=== PATIENT | male | born 1945 | race Caucasian/White ===

== ENCOUNTER → 2017-05-11 16:40 | Outpatient (CLI) | payer MEDICARE, OTHER, SELFPAY ==
--- NOTE | 2017-05-11 16:47 | RAD_ITS ---
STUDY: X-RAY - LEFT KNEE REASON FOR EXAM: Male, 71 years old. Pain TECHNIQUE: 4 view(s) of the knee. COMPARISON: December 04, 2013 FINDINGS: Normal visualized distal femur. Normal visualized proximal tibia and fibula. Normal proximal tibiofibular articulation. Degenerative spurring and slight increasing narrowing at the medial femorotibial compartment. Mild spurring and slight increasing narrowing at the lateral femorotibial compartment. Mild degenerative spurring at the patellofemoral articulation. The soft tissue structures are unremarkable. RAD/Knee 4 or More Views IMPRESSION: Slight increasing degenerative changes of the knee. Electronically Signed: Don Mckeon DO at 19:19 EST Tel [phone], Service support ,
--- NOTE | 2017-05-11 16:49 | RAD_ITS ---
STUDY: X-RAY - RIGHT KNEE REASON FOR EXAM: Male, 71 years old. Pain TECHNIQUE: 4 view(s) of the knee. COMPARISON: December 04, 2013 FINDINGS: Normal visualized distal femur. Normal visualized proximal tibia and fibula. Normal proximal tibiofibular articulation. Degenerative spurring with increasing narrowing at the medial femorotibial compartment. Mild degenerative spurring at the lateral femorotibial compartment. Mild degenerative spurring with increasing narrowing at the patellofemoral articulation. The soft tissue structures are unremarkable. RAD/Knee 4 or More Views IMPRESSION: Degenerative changes of the knee. Electronically Signed: Don Mckeon DO at 18:54 EST Tel [phone], Service support ,
== END ==
PROVIDERS: Family Provider Internal Medicine; PCP Internal Medicine; Visit Provider Anesthesiology Pain Medicine
DX: M25.561 Pain in right knee (principal); M25.562 Pain in left knee
CPT/HCPCS: 73564

== ENCOUNTER → 2017-06-01 17:01 | Outpatient (CLI) | payer MEDICARE, OTHER, SELFPAY ==
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
== END ==
PROVIDERS: Family Provider Internal Medicine; PCP Internal Medicine; Visit Provider Internal Medicine
DX: M54.2 Cervicalgia (principal)
CPT/HCPCS: 72040

== ENCOUNTER → 2017-10-19 12:36 | Outpatient (CLI) | payer MEDICARE, OTHER, SELFPAY | PROVIDERS: Family Provider Internal Medicine; PCP Internal Medicine; Visit Provider Dermatology | DX: L20.84 Intrinsic (allergic) eczema (principal); L82.0 Inflamed seborrheic keratosis; L29.8 Other pruritus | CPT/HCPCS: 36415 ==

== ENCOUNTER → 2017-11-02 14:14 | Outpatient (CLI) | payer MEDICARE, OTHER, SELFPAY ==
[2017-11-02 17:55] LABS: Amphetamine Urine VISTA NEGATIVE (<1000 ng/mL); Barbiturate Urine VISTA NEGATIVE (< 200 ng/mL); Benzodiazepine Urine VISTA NEGATIVE (< 200 ng/mL); Cocaine Urine VISTA NEGATIVE (< 300 ng/mL); Ecstacy Urine VISTA NEGATIVE (< 500 ng/mL); Methadone Urine VISTA NEGATIVE (< 300 ng/mL); PCP Urine VISTA NEGATIVE (< 25 ng/mL); THC Urine VISTA NEGATIVE (< 50 ng/mL); Vista UDS pH Range 6
== END ==
PROVIDERS: Family Provider Internal Medicine; PCP Internal Medicine; Visit Provider Anesthesiology Pain Medicine
DX: F11.20 Opioid dependence, uncomplicated (principal)
CPT/HCPCS: 80307

== ENCOUNTER → 2017-12-16 16:02 | Outpatient (CLI) | payer MEDICARE, OTHER, SELFPAY ==
--- NOTE | 2017-12-16 16:21 | RAD_ITS ---
STUDY: X-RAY CHEST REASON FOR EXAM: Male, 72 years old. Rash on chest TECHNIQUE: Frontal and lateral views of the chest. COMPARISON: October 11, 2014 FINDINGS: Chronic appearing increased interstitial lung markings. There is no demonstrated pleural abnormality. Enlarged heart size. Normal mediastinum and tong. Normal visualized pulmonary arteries. There is atherosclerotic calcification of the aortic arch with tortuosity. There are diffuse degenerative changes of the visualized thoracic spine. There is degenerative osteoarthritis of the bilateral shoulders. There is no demonstrated abnormality of the visualized soft tissue structures of the upper abdomen. RAD/Chest PA and Lateral IMPRESSION: There are no acute findings. Electronically Signed: Talha Smiley MD at 17:49 EDT , Service support ,
[2017-12-16 17:36] LABS: Absolute Lymphocyte Count 3.16 X10^3/ul (0.83-4.51); Absolute Neutrophil Count 6.1 X10^3/uL (2.0-7.7); Basophil# 0.03 X10^3/uL; Basophil% 0.3 % (0-1); Eosinophil# 0.41 X10^3/uL; Eosinophils% 3.9 % (0-5); Hematocrit 40.3 % (40-54); Hemoglobin 12.9 g/dl (13.0-16.5); Lymphocyte # 3.16 X10^3/ul (4.0); Lymphocyte % 30.4 % (19-41); Mean Corpuscular Hgb 30.6 pg (27.0-32.0); Mean Corpuscular Volume 95.5 fL (80-94); Mean Platelet Vol. 11.4 fl (6.2-12.0); Monocyte# 0.72 X10^3/uL; Monocyte% 6.9 % (0-10); Neutrophil # 6.05 X10^3/uL (2.7-7.7); Neutrophil % 58.3 % (47-70); Platelet Count 214 K/mm3 (150-450); RBC Distribution Width CV 13.2 % (11.6-14.6); RBC Distribution Width SD 45.7 fl (35.1-43.9); Red Blood Count 4.22 M/mm3 (4.6-6.2); White Blood Count 10.4 K/mm3 (4.4-11.0)
[2017-12-16 17:39] LABS: POSITIVE COUNT NO; POSITIVE DIFFERENTIAL NO; POSITIVE MORPHOLOGY NO
[2017-12-16 17:54] LABS: AST(SGOT) 16 U/L (15-37); Alanine Aminotransfer ALT/SGPT 28 U/L (16-61); Albumin, Serum 3.1 g/dL (3.2-5.0); Alkaline Phosphatase 81 U/L (45-117); Anion Gap 8 (5-15); BUN 22 mg/dL (7-18); BUN/Creat Ratio 16.1 RATIO (10-20); Bilirubin, Direct 0.17 mg/dL (0.00-0.30); Calcium,Total 9.8 mg/dL (8.5-10.1); Chloride 102 mmol/L (98-107); Creatinine, Serum 1.37 mg/dL (0.70-1.30); EST Glomerular Filtration Rate 54 mL/min (>60); Est Glom Filt Rate - Afr Amer 66 mL/min (>60); Globulin 3.6 g/dL (2.2-4.2); Glucose 89 mg/dL (74-106); Potassium 3.4 mmol/L (3.5-5.1); Protein, Total 6.7 g/dL (6.4-8.2); Sodium Level 142 mmol/L (136-145)
[2017-12-22 16:09] LABS: Immunoglobulin A 151 mg/dL (61-437); Immunoglobulin G 623 mg/dL (700-1600); PROEL- A/G Ratio 1.2 (0.7-1.7); PROEL- Albumin 3.4 g/dL (2.9-4.4); PROEL- Alpha-1 Globulin 0.3 g/dL (0.0-0.4); PROEL- Beta Globulin 1.1 g/dL (0.7-1.3); PROEL- Gamma Globulin 0.5 g/dL (0.4-1.8); PROEL- Globulin, Total 2.8 g/dL (2.2-3.9); PROEL- TOTAL PROTEIN 6.2 g/dL (6.0-8.5)
[2017-12-23 08:30] LABS: Hep C Antibodies <0.1 s/co ratio (0.0-0.9)
[2017-12-23 08:31] LABS: Immunoglobulin M 20 mg/dL (15-143)
[2017-12-23 16:08] LABS: PROELU- Albumin, Urine 32.8 % (.); PROELU- Alpha-1-Globulin,Ur 5.3 % (.); PROELU- Alpha-2-Globulin,Ur 19.1 % (.); PROELU- Gamma Globulin, Ur 15.8 % (.); Total Protein, Ur 5.5 mg/dL (Not Estab.)
== END ==
PROVIDERS: Family Provider Internal Medicine; PCP Internal Medicine; Referring Provider Dermatology; Visit Provider Dermatology
DX: L29.8 Other pruritus (principal); L53.8 Other specified erythematous conditions; L82.0 Inflamed seborrheic keratosis; L30.9 Dermatitis, unspecified
CPT/HCPCS: 36415; 71046; 80048; 80076; 82784; 84165; 84166; 85025; 86334; 86803

== ENCOUNTER → 2018-01-05 13:40 | Outpatient (CLI) | payer MEDICARE, OTHER, SELFPAY | PROVIDERS: Family Provider Internal Medicine; PCP Internal Medicine; Referring Provider Dermatology; Visit Provider Dermatology | DX: L30.9 Dermatitis, unspecified (principal) | CPT/HCPCS: 87070; 87077; 87186; 87205 ==

== ENCOUNTER → 2018-05-19 14:55 | Outpatient (CLI) | payer MEDICARE, OTHER, SELFPAY ==
--- NOTE | 2018-05-19 15:03 | RAD_ITS ---
STUDY: X-RAY - RIGHT KNEE REASON FOR EXAM: Male, 72 years old. Chronic pain. Decreased range of motion. TECHNIQUE: 4 view(s) of the knee. COMPARISON: 05/11/2017. FINDINGS: Normal visualized distal femur. Normal visualized proximal tibia and fibula. Normal proximal tibiofibular articulation. There is no demonstrated fracture. There is moderate to severe degenerative arthrosis of the medial femorotibial compartment with moderate joint space narrowing. There is mild degenerative arthrosis of the lateral femorotibial compartment. There is mild degenerative arthrosis of the patellofemoral articulation. There is no demonstrated joint effusion. The soft tissue structures are unremarkable. RAD/Knee 4 or More Views IMPRESSION: Mild worsening of medial compartment degenerative disease now considered moderate to severe. No other changes or acute abnormalities. Electronically Signed: Brandon Anderson MD at 0:03 EDT , Service support ,
--- NOTE | 2018-05-19 15:04 | RAD_ITS ---
STUDY: X-RAY - LEFT KNEE REASON FOR EXAM: Male, 72 years old. Chronic pain. Decreased range of motion. TECHNIQUE: 4 view(s) of the knee. COMPARISON: 05/21/2017. FINDINGS: Normal visualized distal femur. Normal visualized proximal tibia and fibula. Normal proximal tibiofibular articulation. There is no demonstrated fracture. There is moderate degenerative arthrosis of the medial femorotibial compartment with moderate joint space narrowing. There is mild degenerative arthrosis of the lateral femorotibial compartment. There is mild degenerative arthrosis of the patellofemoral articulation. There is no demonstrated joint effusion. The soft tissue structures are unremarkable. RAD/Knee 4 or More Views IMPRESSION: No change. [id number] degenerative changes, stable since previous exam. Electronically Signed: Brandon Anderson MD at 0:01 EDT , Service support ,
== END ==
PROVIDERS: Family Provider Internal Medicine; PCP Internal Medicine; Visit Provider Internal Medicine
DX: M25.561 Pain in right knee (principal); M25.562 Pain in left knee
CPT/HCPCS: 73564

== ENCOUNTER → 2018-07-03 | Outpatient (CLI) | payer MEDICARE, OTHER, SELFPAY ==
--- NOTE | 2018-07-03 17:04 | STRESSREP ---
Stress Test Report Date: 07-03-18 Procedure: Pharmacologic stress nuclear imaging study Indications: Chest pain; abnormal ECG Consent: Per the patient Procedure: The patient underwent pharmacologic (Regadenoson) evaluation with a peak heart rate of 107 beats per minute (71 %predicted maximal heart rate) and a peak blood pressure of 132/70 mmHg. The baseline ECG demonstrated sinus versus ectopic atrial rhythm; nonspecific ST/T wave abnormality; PVCs. The peak pharmacologic ECG demonstrated no obvious ECG changes. There were occasional PVCs pretest and during recovery. There was no complaint of chest discomfort during pharmacologic infusion or recovery. The examination was discontinued secondary to completion of protocol. Impression: 1. Pharmacologic (Regadenoson) evaluation 2. Peak pharmacologic ECG with no obvious ECG changes. 3. There were occasional PVCs pretest and during recovery. 4. Nuclear images pending Myocardial perfusion imaging study: Technique: The patient was injected with 14.8 millicuries of technetium 99m Cardiolite and subsequently rest SPECT Cardiolite nuclear imaging was obtained in the horizontal long, vertical long, and short axis views. The patient underwent pharmacologic (Regadenoson) evaluation with a peak heart rate of 107 beats per minute (71 % percent predicted maximal heart rate) and a peak blood pressure of 132/70 mmHg. The patient was injected with 44.9 millicuries of technetium 99m Cardiolite and subsequently stress SPECT Cardiolite nuclear imaging was obtained in the horizontal long, vertical long, and short axis views. A gated Cardiolite study at peak stress was obtained. Interpretation: Rest and stress SPECT Cardiolite nuclear imaging status post realignment, normalization, and attenuation correction demonstrate relative uniform tracer uptake and myocardial perfusion appearing within normal limits. There is end systolic thickening and brightening. The gated Cardiolite study demonstrates myocardial thickening and inward wall motion. The reported LVEF is 50 %. Impression: 1. Rest and stress SPECT Cardiolite nuclear imaging demonstrate relative uniform tracer uptake and myocardial perfusion appearing within normal limits. 2. The gated Cardiolite study reports an LVEF of 50 %. This note was generated with [employer]antage[employer] software. It may contain incorrect words, spelling, and punctuation that were not noted in checking the note before signing.
== END | disposition home or self-care (01) ==
LOC: CVS 06:55
PROVIDERS: Family Provider Internal Medicine; PCP Internal Medicine; Referring Provider Internal Medicine; Visit Provider Internal Medicine
DX: R07.9 Chest pain, unspecified (principal)
CPT/HCPCS: 78452; 93017; A9500; A4216; J2785

== ENCOUNTER → 2018-07-10 | Outpatient (CLI) | payer MEDICARE, OTHER, SELFPAY ==
--- NOTE | 2018-07-10 12:52 | VDLE_ITS ---
Reason For Study: venous insufficiency RIGHT LEFT CFV is compressible, spontaneous, phasic, CFV is compressible, spontaneous, phasic, competent and demonstrates normal competent, and demonstrates normal augmentation. augmentation. FV is compressible, spontaneous, phasic, FV is compressible, spontaneous, phasic, competent and demonstrates normal competent and demonstrates normal augmentation. augmentation. POP V is compressible, spontaneous, phasic, POP V is compressible, spontaneous, phasic, competent and demonstrates normal competent and demonstrates normal augmentation. augmentation. T/P Trunk is compressible. T/P Trunk is compressible. PTV is compressible. PTV is compressible. RT PerV is compressible. LT PerV is compressible. Peroneal V was not well visualized. Peroneal V was not visualized well. SFJ is competent. SFJ is competent. GSV is competent above knee. GSV is competent above knee. GSV demonstrates reflux > .5 seconds below GSV demonstrates reflux > .5 seconds below knee. knee. SSV is competent. SSV was not seen. Procedure Exam performed in department. The study was technically difficult. The exam was diagnostic. A preliminary report was called and/or faxed to Dr. Moore. Image # 18 is RT GSV below knee. Interpretation Summary 1. bilateral no DVT or SVT. 2. Bilateral calf GSV with reflux. Ordering Physician: Jack oMore Referring Physician: Angelia Conway Performed By: Sherri Harden, BURT, RVT
== END | disposition home or self-care (01) ==
LOC: CVS 12:51
PROVIDERS: Family Provider Internal Medicine; PCP Internal Medicine; Referring Provider Surgery Vascular Surgery; Visit Provider Surgery Vascular Surgery
DX: I83.893 Varicose veins of bilateral lower extremities with other complications (principal); E11.52 Type 2 diabetes mellitus with diabetic peripheral angiopathy with gangrene; I96 Gangrene, not elsewhere classified; I87.2 Venous insufficiency (chronic) (peripheral); E78.00 Pure hypercholesterolemia, unspecified; I10 Essential (primary) hypertension; M79.669 Pain in unspecified lower leg; M79.89 Other specified soft tissue disorders; Z87.891 Personal history of nicotine dependence
CPT/HCPCS: 93970

== ENCOUNTER → 2018-07-20 | Outpatient (CLI) | payer MEDICARE, OTHER, SELFPAY | END | disposition home or self-care (01) | LOC: CVS 14:04 | PROVIDERS: Family Provider Internal Medicine; PCP Internal Medicine; Referring Provider Internal Medicine; Visit Provider Internal Medicine | DX: R07.9 Chest pain, unspecified (principal) | CPT/HCPCS: 93306; Q9957; A4216; C8929 ==

== ENCOUNTER → 2018-09-21 | Outpatient (CLI) | payer MEDICARE, OTHER, SELFPAY ==
[2018-09-13 13:41] VITALS: BMI 35.2
== END | disposition home or self-care (01) ==
LOC: LABSPEC 17:19
PROVIDERS: Family Provider Internal Medicine; PCP Internal Medicine
DX: R30.0 Dysuria (principal)
CPT/HCPCS: 87086

== ENCOUNTER 2019-03-19 15:24 | Emergency (ER) | payer MEDICARE, OTHER, SELFPAY ==
[2018-09-13 13:41] VITALS: BMI 35.2
[2019-03-19] VITALS (7 sets, daily range): BP systolic 124–134; BP diastolic 65–80; PULSE 65–76; RESP 10–17; TEMP 36.6; O2SAT 94–98; BMI 36.6
--- NOTE | 2019-03-19 15:39 | EKG12_ITS ---
Test Reason : SOB Blood Pressure : / mmHG Vent. Rate : 067 BPM Atrial Rate : 067 BPM P-R Int : 196 ms QRS Dur : 096 ms QT Int : 428 ms P-R-T Axes : 091 -16 050 degrees QTc Int : 452 ms Sinus rhythm with Premature supraventricular complexes Otherwise normal ECG Confirmed by JIAN MCLAIN, MATTY ([id number]), makeup editor HERRERA HULL ([id number]) on 03/23/2019 9:51:03 AM Referred By: Confirmed By:KEELEY VILLAR MD
--- NOTE | 2019-03-19 15:40 | ED.DCSUM_ITS ---
History of Present Illness Chief Complaint: Shortness of Breath Informant: Patient, Significant Other Onset: Today Narrative: Patient presents the emergency department with intermittent dyspnea as well as cough. 2 weeks ago the patient had a right knee replacement with Dr. Washington. 1 week later he reports 4 days of high fever myalgias headache nasal congestion/rhinorrhea and cough. He states the fevers and myalgias have improved. He had called his primary care physician's office and they placed him on Augmentin which he has been taking. He still feels pressure in his head and shortness of breath at times with cough. She uses a couple pillows at night to help prop him up because of the cough. He notes his legs are not any more swollen than normal. He was seen by orthopedics today who is happy with the progress of his knee but were concerned about his breathing. Past Medical History - Allergies and Home Meds Allergies/Adverse Reactions: Allergies Sulfa (Sulfonamide Antibiotics) Allergy (Verified 03/19/19 15:26) Shortness of breath Gadolinium-MRI Contrast Medium [MRI] Adverse Reaction (Verified 03/19/19 15:26) Vomiting Primary Care Physician: Angelia Conway DO [Primary Care Provider] - Surgical History: - - 4 back surgeries. Smoking Status: Former smoker - Family History Maternal Family History: Family History (Last Reviewed 09/13/18 @ 14:25 by Vasile Hernández MD) Sister Cancer Mother CVA (cerebral vascular accident) Diabetes Father Cancer Brother Myocardial infarction Brother Myocardial infarction Family History: Reports: No pertinent history Paternal Family History: Family History (Last Reviewed 09/13/18 @ 14:25 by Vasile Hernández MD) Sister Cancer Mother CVA (cerebral vascular accident) Diabetes Father Cancer Brother Myocardial infarction Brother Myocardial infarction Family History: Reports: No pertinent history Review of Systems General: Reports: Fever. Denies: Chills, Sweats Eyes: Denies: Visual changes - bilaterally, Diplopia ENT: Reports: Rhinorrhea. Denies: Sore throat Cardiovascular: Denies: Chest pain, Palpitations Respiratory: Reports: Dyspnea, Cough, Dyspnea on exertion. Denies: Orthopnea Gastrointestinal: Denies: Abdominal pain, Nausea, Vomiting, Diarrhea, Melena, Hematochezia Genitourinary: Denies: Dysuria, Hematuria, Frequency Musculoskeletal: Reports: Myalgias. Denies: Back pain, Extremity Pain Skin: Denies: Rash, Abrasions, Wounds Neurological: Reports: Headache. 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 ENT: Moist mucous membranes, No rhinorrhea Neck: Supple, Nontender Cardiovascular: Regular rate, Regular rhythm, No murmurs Respiratory: No distress, CTA bilaterally, Chest nontender, Decreased Air Movement Abdomen: Soft, Nontender, Nondistended, Normal bowel sounds Back: Nontender, Normal Inspection Extremities: Nontender, Edema - Bilateral lower extremity pitting edema. Healing surgical incision of the right knee. Skin: Normal color, No rash Neurological: Alert, Oriented x3, Cranial nerves II-XII grossly intact, Normal Strength, Normal Sensation Psychological: Normal affect, Normal Mood Diagnostic/Tx/Re-eval - Rhythm Strip Rhythm Strip: Sinus Rhythm Rate: 67 - with PAC - Medical Decision Making Patient received a breathing treatment and he states that his breathing is significantly better. His chest x-ray is negative. Creatinine 1.7. Troponin negative. His EKG is sinus at a rate of 67. As his symptoms are after influe nza infection, he is not hypoxic tachycardic or tachypneic and he is not having any pleuritic pain I doubt that this is pulmonary embolism and I do not think it is worth the risk to his kidneys to give him a contrast bolus. Therefore I would have to say this most likely not a pulmonary embolism. He did get better with the breathing treatment and he has a inhaler at home which I would encourage him to use. Follow-up with primary care return if worsening or concerns. ED Disposition - Plan for ED Patient: Disposition: Home or Assisted Living Diagnosis: Bronchitis Instructions: BRONCHITIS, No Antibiotic (Adult) Referrals: Angelia Conway, DO [Primary Care Provider] - 3-5 Days if not improving
[2019-03-19] MEDS: Ipratropium/Albuterol Sulfate 3 ML AMPUL.NEB INHALATION (16:00)
[2019-03-19 16:12] LABS: Absolute Lymphocyte Count 3.14 X10^3/uL (0.83-4.51); Absolute Neutrophil Count 9.2 X10^3/uL (2.0-7.7); Basophil# 0.09 X10^3/uL; Basophil% 0.6 % (0-1); Eosinophil# 0.76 X10^3/uL; Eosinophils% 5.4 % (0-5); Hematocrit 37.3 % (40-54); Hemoglobin 12.5 g/dL (13.0-16.5); Lymphocyte # 3.14 X10^3/ul (4.0); Lymphocyte % 22.2 % (19-41); Mean Corp Hgb Conc 33.5 g/dL (32-36); Mean Corpuscular Hgb 30.6 pg (27.0-32.0); Mean Corpuscular Volume 91.2 fL (80-94); Mean Platelet Vol. 10.3 fl (6.2-12.0); Monocyte# 0.74 X10^3/uL; Monocyte% 5.2 % (0-10); NRBC Flagged by Analyzer 0 % (0-5); Neutrophil # 9.16 X10^3/uL (2.7-7.7); Platelet Count 379 K/mm3 (150-450); RBC Distribution Width SD 43.2 fl (35.1-43.9); Red Blood Count 4.09 M/mm3 (4.6-6.2); White Blood Count 14.1 K/mm3 (4.4-11.0)
--- NOTE | 2019-03-19 16:16 | RAD_ITS ---
STUDY: X-RAY CHEST REASON FOR EXAM: Male, 73 years old. SOB, COUGH AND WEAKNESS FEELING LOUSY FOR A COUPLE OF WEEKS NOW PER PATIENT. TECHNIQUE: PA and lateral views of the chest. COMPARISON: None. FINDINGS: The lungs are clear and expanded. There is no demonstrated pleural abnormality. There is mild cardiac enlargement. Normal mediastinum and tong. Normal visualized pulmonary arteries. Normal visualized aortic arch and descending thoracic aorta. Normal visualized thoracic spine. Normal visualized ribs, clavicles, and shoulders. There is no demonstrated abnormality of the visualized soft tissue structures of the upper abdomen. RAD/Chest PA and Lateral IMPRESSION: Normal x-ray examination of the chest. Electronically Signed: Juan Santacruz DO at 16:39 EST Tel , Service support ,
[2019-03-19 16:23] LABS: Anion Gap 7 (5-15); BUN 37 mg/dL (7-18); BUN/Creat Ratio 21.6 RATIO (10-20); Calcium,Total 9.4 mg/dL (8.5-10.1); Chloride 88 mmol/L (98-107); Creatinine, Serum 1.71 mg/dL (0.70-1.30); EST Glomerular Filtration Rate 42 mL/min (>60); Est Glom Filt Rate - Afr Amer 51 mL/min (>60); Estimated Creatinine Clearance 42.86 ml/min; Glucose 321 mg/dL (74-106); Potassium 3.5 mmol/L (3.5-5.1); Sodium Level 127 mmol/L (136-145)
== END 2019-03-19 18:25 | disposition home or self-care (01) ==
PROVIDERS: Emergency Provider Emergency Medicine; Family Provider Internal Medicine; PCP Internal Medicine
DX: J40 Bronchitis, not specified as acute or chronic (principal); I49.1 Atrial premature depolarization; E66.9 Obesity, unspecified; Z96.651 Presence of right artificial knee joint; Z87.891 Personal history of nicotine dependence
CPT/HCPCS: 71046; 80048; 84484; 85025; 93005; 94640; 99284; A4216

== ENCOUNTER → 2019-05-18 14:03 | Outpatient (CLI) | payer MEDICARE, OTHER, SELFPAY ==
[2019-03-19 15:26] VITALS: BMI 36.6
== END ==
PROVIDERS: PCP Internal Medicine; Referring Provider Internal Medicine; Visit Provider Internal Medicine
DX: I48.91 Unspecified atrial fibrillation (principal); R94.31 Abnormal electrocardiogram [ECG] [EKG]
CPT/HCPCS: 93225; 93226

== ENCOUNTER → 2019-07-11 15:00 | Outpatient (CLI) | payer MEDICARE, OTHER, SELFPAY ==
[2019-03-19 15:26] VITALS: BMI 36.6
--- NOTE | 2019-07-11 15:02 | ECHOCS_ITS ---
Reason For Study: AFIB Procedure This was a 2D Doppler, Color Flow transthoracic echocardiogram. The study was technically difficult. Due to body habitus. Contrast injection was performed. Exam performed in department. Left Ventricle Normal LV size. The estimated ejection fraction is 60 %. No evidence for diastolic dysfunction. No regional wall motion abnormalities noted. Right Ventricle Normal RV size. Normal systolic function. Atria Normal left atrium. Normal right atrium. No doppler evidence for ASD. Mitral Valve There is no mitral valve stenosis. No mitral valve insufficiency. Tricuspid Valve There is no tricuspid stenosis. Unable to estimate RV systolic pressure due to insufficient tricuspid regurgitant envelope. Aortic Valve Trisinus/trileaflet aortic valve. There is no aortic stenosis. No aortic valve insufficiency. Pulmonic Valve There is no pulmonic valvular stenosis. No pulmonic valve insufficiency. Great Vessels Normal aortic root. Pericardium/Pleural No pericardial effusion. Medication 22 gauge I.V. with prn adaptor inserted into right arm. Diluted definity 4.0ml given slow IV push to enhance endocardial definition. MMode/2D Measurements & Calculations LVIDd: 5.2 cm IVSd: 1.1 cm Ao root diam: 3.3 cm LVIDs: 3.0 cm LVPWd: 1.1 cm RVDd: 2.6 cm FS: 42.5 % LAV(MOD-bp): 59.3 ml LA A4 area: 19.7 cm2 LA dimension(2D): 4.6 cm LAV(MOD-bp) Indexed: 24.7 ml/m2 LAV(MOD-sp2): 64.8 ml LAV(MOD-sp4): 55.2 ml RA A4 area: 18.4 cm2 Time Measurements MV dec time: 0.26 sec Doppler Measurements & Calculations MV E max davidson: 85.8 cm/sec Lat Peak E' Davidson: 11.0 cm/sec Med Peak E' Davidson: 6.5 cm/sec MV A max davidson: 104.1 cm/sec E/E' lat: 7.8 E/E' med: 13.1 MV E/A: 0.82 Ao V2 max: 156.9 cm/sec LV V1 max: 112.8 cm/sec PA V2 max: 109.3 cm/sec Ao max P.8 mmHg LV V1 max P.1 mmHg Ao V2 mean: 101.1 cm/sec LV V1 mean P.0 mmHg Ao mean P.7 mmHg LV V1 mean: 84.1 cm/sec Ao V2 VTI: 30.5 cm LV V1 VTI: 22.0 cm Interpretation Summary The estimated ejection fraction is 60 %. No evidence for diastolic dysfunction. The study was technically difficult. Contrast injection was performed. Ordering Physician: Angelia Conway Referring Physician: Angelia Conway Performed By: Sherri Harden, BURT, RVT
== END ==
PROVIDERS: PCP Internal Medicine; Referring Provider Internal Medicine; Visit Provider Internal Medicine
DX: I48.91 Unspecified atrial fibrillation (principal); I07.1 Rheumatic tricuspid insufficiency
CPT/HCPCS: 93306; Q9957; A4216; C8929

== ENCOUNTER → 2019-09-10 16:04 | Outpatient (CLI) | payer MEDICARE, OTHER, SELFPAY ==
[2019-03-19 15:26] VITALS: BMI 36.6
--- NOTE | 2019-09-10 16:08 | RAD_ITS ---
HISTORY: back pain ADDITIONAL HISTORY: None provided. EXAMINATION/TECHNIQUE: XR Spine Lumbar 2 or 3 Views Number of images including paperwork: 3 COMPARISON: 10/23/2014 FINDINGS: VERTEBRAE: No acute fracture. VERTEBRAL ALIGNMENT: No traumatic subluxation. Straightening of the normal lumbar lordosis. DISKS AND JOINTS: Laminectomies and posterior spinal fusion L2-L4. Posterior fusion hardware also noted at L4-5. Severe discogenic degenerative changes at L1-2, progressed compared to the previous examination. Mild to moderate degenerative changes elsewhere in the visible spine. SOFT TISSUES: Vascular calcifications. RAD/Lumbar Spine 2 or 3 Views IMPRESSION: 1. No acute osseous abnormality. 2. Degenerative and postoperative changes of the lumbar spine. at 0024 Reported and signed by: Yojana Gaviria MD Electronically Signed: Yojana Gaviria MD at 0:24 EDT Tel , Service support ,
== END ==
PROVIDERS: PCP Internal Medicine; Referring Provider Anesthesiology Pain Medicine; Visit Provider Anesthesiology Pain Medicine
DX: M54.9 Dorsalgia, unspecified (principal)
CPT/HCPCS: 72100

== ENCOUNTER → 2019-12-20 15:52 | Outpatient (CLI) | payer MEDICARE, OTHER, SELFPAY ==
[2019-03-19 15:26] VITALS: BMI 36.6
== END ==
PROVIDERS: PCP Internal Medicine; Referring Provider Nurse Practitioner Adult Health; Visit Provider Nurse Practitioner Adult Health
CPT/HCPCS: 36415; 84153

== ENCOUNTER → 2019-12-27 16:13 | Outpatient (CLI) | payer MEDICARE, OTHER, SELFPAY ==
[2019-03-19 15:26] VITALS: BMI 36.6
--- NOTE | 2019-12-27 16:16 | MRI_ITS ---
STUDY: MRI LUMBAR SPINE WITHOUT CONTRAST REASON FOR EXAM: Male, 74 years old. lower BACK PAIN, PIERCING SHARP THROBBING R SIDED PAIN SINCE LAST FUSION IN 2014, MULTIPLE BACK SURGERIES TECHNIQUE: Standardized fat and water weighted pulse sequences were obtained in the sagittal and axial planes. COMPARISON: 12/09/2016 FINDINGS: T12-L1: Normal endplates. Normal disc height, hydration and morphology. Normal bilateral facet joints. Normal central canal and bilateral lateral recesses. Normal bilateral intervertebral neural foramina. Normal lumbar lordosis. There is no substantial scoliosis. Normal conus medullaris that terminates at T12-L1 L1-2: Narrowed disc space with degenerative endplate changes and desiccation of the disc with minor bulging annulus and small left foraminal disc protrusion.. Facet arthropathy and thickening of ligamenta flava greater on the left. Mild narrowing of the central canal. Mild bilateral recess stenosis greater on the left. Moderate right neuroforaminal stenosis and severe narrowing on the left. L2-3: Postop change status post bilateral laminectomy and posterior fusion.. Normal bilateral facet joints. Normal central canal and bilateral lateral recesses. Normal bilateral intervertebral neural foramina. L3-4: Postop change status post bilateral laminectomy and posterior fusion.. Bilateral facet arthropathy.. Normal central canal. Mild bilateral recess stenosis.. Normal bilateral intervertebral neural foramina. L4-5: Status post bilateral laminectomy and posterior fusion.. Normal bilateral facet joints. Normal central canal and bilateral lateral recesses. Normal bilateral intervertebral neural foramina. L5-S1 status post posterior fusion.: Normal endplates. Normal disc height, hydration and morphology. Normal bilateral facet joints. Normal central canal and bilateral lateral recesses. Normal bilateral intervertebral neural foramina. Normal visualized sacral ala. Normal visualized paraspinous soft tissue structures. There is slightly worsening of the degenerative changes at L1-2 since previous study MRI/Spine Lumbar (Routine) IMPRESSION: No evidence for acute fracture or other significant bony pathology.. Status post multilevel posterior fusion spanning L2-3 through L5-S1 Spinal stenosis at L1-2 greater on the right secondary to disc disease and bony hypertrophy. Electronically Signed: Lino Shin MD at 16:57 EDT , Service support ,
== END ==
PROVIDERS: PCP Internal Medicine; Referring Provider Anesthesiology Pain Medicine; Visit Provider Anesthesiology Pain Medicine
DX: M54.9 Dorsalgia, unspecified (principal); M62.81 Muscle weakness (generalized)
CPT/HCPCS: 72148

== ENCOUNTER → 2020-02-27 16:53 | Outpatient (CLI) | payer MEDICARE, OTHER, SELFPAY ==
[2020-01-23 15:03] VITALS: BMI 36.3
== END ==
PROVIDERS: PCP Internal Medicine; Referring Provider Internal Medicine; Visit Provider Internal Medicine
DX: R07.9 Chest pain, unspecified (principal)
CPT/HCPCS: 36415; 84484

== ENCOUNTER → 2020-04-09 07:12 | Outpatient (CLI) | payer MEDICARE, OTHER, SELFPAY ==
[2020-01-23 15:03] VITALS: BMI 36.3
--- NOTE | 2020-04-09 16:54 | STRESSREP ---
Stress Test Report Pharmacologic myocardial perfusion stress test. 72-year-old man with a history of chest pain. Stress protocol: Resting KG demonstrates sinus bradycardia with a rate of 56 bpm normal intervals are noted resting blood pressure is 126/68 mmHg. 0.4 mg of regadenoson was infused per usual protocol followed by rapid venous saline flush injection continuous EKG monitoring was performed. The maximum heart rate attained was 98 bpm which was 66% of max impacted heart rate the maximum workload was 1 metabolic equivalent. At rest there were no ST or T wave changes noted to suggest abnormal flow reserve at peak infusion nonspecific ST-T wave changes were noted with no meet the criteria for ischemia. No clinical angina was noted. Myocardial perfusion protocol. 14.7 mCi of technetium 99m sestamibi was injected at rest. 0.4 mg of regadenoson was infused per usual protocol. Peak infusion 44.5 mCi of technetium 99m sestamibi was injected stress images were obtained stress and rest images were reconstructed and compared in the short axis vertical and horizontal long axis. Gated images were also obtained Perfusion SPECT analysis: Review of the images demonstrate normal uptake of tracer noted in all areas of the myocardium. The resting images similar demonstrate normal uptake of tracer noted in all areas of the myocardium. No evidence of reversibility is noted suggest ischemia no previous infarct is noted. Gated SPECT analysis: The gated ejection fraction is noted to be 60+ percent. Conclusion: Normal pharmacologic myocardial perfusion stress test. Preserved ejection fraction.
== END ==
PROVIDERS: PCP Internal Medicine; Referring Provider Internal Medicine; Visit Provider Internal Medicine
DX: R07.89 Other chest pain (principal)
CPT/HCPCS: 78452; 93017; A9500; A4216; J2785

== ENCOUNTER → 2020-04-11 15:59 | Outpatient (CLI) | payer MEDICARE, OTHER, SELFPAY ==
[2020-04-11 14:13] VITALS: BMI 39.5
--- NOTE | 2020-04-11 16:15 | RAD_ITS ---
STUDY: X-RAY CHEST REASON FOR EXAM: Male, 74 years old. CAD, patient is to have a heart cath in near future TECHNIQUE: PA and lateral views of the chest. COMPARISON: 03/19/2019 FINDINGS: The lungs are clear and expanded. There is no demonstrated pleural abnormality. Normal size heart. Normal mediastinum and tong. Normal visualized pulmonary arteries. Normal visualized aortic arch and descending thoracic aorta. Normal visualized thoracic spine. Normal visualized ribs, clavicles, and shoulders. There is no demonstrated abnormality of the visualized soft tissue structures of the upper abdomen. RAD/Chest PA and Lateral IMPRESSION: Normal x-ray examination of the chest. Electronically Signed: Manjit Roach MD at 8:56 EST Tel , Service support ,
[2020-04-11 17:25] LABS: Absolute Lymphocyte Count 3.75 X10^3/uL (0.83-4.51); Absolute Neutrophil Count 5.9 X10^3/uL (2.0-7.7); Basophil# 0.06 X10^3/uL; Basophil% 0.5 % (0-1); Eosinophils% 2.7 % (0-5); Hematocrit 39.6 % (40-54); Hemoglobin 13.1 g/dL (13.0-16.5); Lymphocyte # 3.75 X10^3/ul (4.0); Lymphocyte % 34.3 % (19-41); Mean Corp Hgb Conc 33.1 g/dL (32-36); Mean Corpuscular Hgb 30.8 pg (27.0-32.0); Mean Platelet Vol. 12.8 fl (6.2-12.0); Monocyte# 0.83 X10^3/uL; Monocyte% 7.6 % (0-10); NRBC Flagged by Analyzer 0 % (0-5); Neutrophil # 5.93 X10^3/uL (2.7-7.7); Neutrophil % 54.4 % (47-70); Platelet Count 192 K/mm3 (150-450); RBC Distribution Width CV 13.1 % (11.6-14.6); RBC Distribution Width SD 44.4 fl (35.1-43.9); Red Blood Count 4.26 M/mm3 (4.6-6.2); White Blood Count 10.9 K/mm3 (4.4-11.0)
[2020-04-11 17:56] LABS: Anion Gap 5 (5-15); BUN 38 mg/dL (7-18); BUN/Creat Ratio 22.5 RATIO (10-20); Calcium,Total 9.6 mg/dL (8.5-10.1); Chloride 99 mmol/L (98-107); Creatinine, Serum 1.69 mg/dL (0.70-1.30); EST Glomerular Filtration Rate 42 mL/min (>60); Est Glom Filt Rate - Afr Amer 51 mL/min (>60); Glucose 265 mg/dL (74-106); Potassium 4.1 mmol/L (3.5-5.1); Sodium Level 136 mmol/L (136-145)
== END ==
PROVIDERS: PCP Internal Medicine; Referring Provider Internal Medicine Cardiovascular Disease; Visit Provider Internal Medicine Cardiovascular Disease
DX: I48.0 Paroxysmal atrial fibrillation (principal); I25.119 Atherosclerotic heart disease of native coronary artery with unspecified angina pectoris
CPT/HCPCS: 36415; 71046; 80048; 85025

== ENCOUNTER 2020-04-16 07:04 | Day surgery (SDC) | payer MEDICARE, OTHER, SELFPAY ==
[2020-04-11 14:13] VITALS: BMI 39.5
[2020-04-15 08:53] VITALS: BMI 39.5
--- NOTE | 2020-04-16 08:32 | CL.D_ITS ---
Patient Name: MACHELLE SHARP Study Date: 04/16/2020 Performing: Wai Mckeon MD Ht: 72.83 inches 185 cm : 1945 Wt: 299.83 lbs 136 kg Age: 74 Gender: male BSA: 2.55 PROCEDURE(S) PERFORMED [id number] CLINICAL PROFILE AND INDICATIONS Heart Failure: None CONCLUSIONS Normal coronary arteries RECOMMENDATIONS Medical therapy DESCRIPTION OF PROCEDURE The patient arrived to the procedure lab. The risks and benefits of the procedure as well as a full d escription of our services here and current unavailability of surgical backup were fully explained to the patient and/or their significant other prior to the catheterization. The Timeout was completed, verifying the correct patient and procedure. The patient's procedural site was prepped and draped in the usual fashion. Local anesthetic was given subcutaneously to right radial region with Lidocaine 2% . Using a modified Seldinger technique, arterial access was obtained via the right radial artery, a 6 Fr sheath was inserted. Right Coronary Artery selective angiography was then performed in [facility] using a 5 Fr. 4.0 Wales catheter.The arterial sheath was pulled and a TR Band was applied for he mostasis CORONARY ANGIOGRAPHY DOMINANCE: Left Dominant LEFT HEART ASSESSMENT Left Ventricular Ejection Fraction: by Echo 65 % Normal LV wall motion LEFT MAIN: Angiographically normal LEFT ANTERIOR DESCENDING ARTERY: Mild luminal irregularities CIRCUMFLEX ARTERY: Mild luminal irregularities RIGHT CORONARY ARTERY: Mild luminal irregularities COMPLICATIONS No Complications PROCEDURE MEDICATIONS Versed 1 mg IV Fentanyl 50 mcg IV Oxygen: 2 L/min via nasal cannula Heparin diluted in 23cc Heparinized saline. Patient given 10cc IA of this solution. 04/16/2020 08:10: 48 Verapamil 2.5mg, Ntg 100mcgs, 2000 units of Heparin diluted in 23cc Heparinized saline. Patient give n 10cc IA of this solution. 04/16/2020 08:10:48 SUMMARY OF HEMODYNAMIC DATA Time AIR REST ECG 07:36:32 AO 95/59 (72) SA 08:12:37 Signed By Wai Mckeon MD On 04/16/2020 08:31:34 Wai Mckeon MD
--- NOTE | 2020-04-16 10:11 | ECHOCS_ITS ---
Reason For Study: Chest Pain Procedure This was a 2D Doppler, Color Flow transthoracic echocardiogram. The study was technically difficult. Contrast injection was performed. Exam performed portable in patient room. Left Ventricle Normal LV size. Left ventricular systolic function is normal. The estimated ejection fraction is 60 %. Stage 1 diastolic dysfunction. No regional wall motion abnormalities noted. Right Ventricle Normal RV size. Normal systolic function. Atria Normal left atrium. Normal right atrium. Mitral Valve Normal mitral valve. Tricuspid Valve Normal tricuspid valve. Mild (1+) tricuspid valve insufficiency. Pulmonary artery systolic pressure is 24 mmHg. Aortic Valve Trisinus/trileaflet aortic valve. Great Vessels Normal aortic root. The pulmonary artery is normal size. Pericardium/Pleural No pericardial effusion. Medication Diluted definity 3ml given slow IV push to enhance endocardial definition. MMode/2D Measurements & Calculations LVIDd: 6.5 cm IVSd: 1.0 cm Ao root diam: 3.3 cm LVIDs: 4.3 cm LVPWd: 1.1 cm RVDd: 4.3 cm FS: 34.3 % LAV(MOD-bp): 48.4 ml LVAd ap4: 32.3 cm2 SV(MOD-sp4): 53.4 ml LAV(MOD-bp) Indexed: 18.9 ml/m2 EDV(MOD-sp4): 92.3 ml LAV(MOD-sp2): 58.7 ml EDV(sp4-el): 94.6 ml LAV(MOD-sp4): 35.7 ml LVAs ap4: 18.9 cm2 ESV(MOD-sp4): 38.9 ml ESV(sp4-el): 38.9 ml EF(MOD-sp4): 57.9 % EF(sp4-el): 58.9 % SV(sp4-el): 55.7 ml LA A4 area: 17.8 cm2 LA dimension(2D): 4.1 cm RA A4 area: 21.1 cm2 Doppler Measurements & Calculations MV E max davidson: 97.2 cm/sec Lat Peak E' Davidson: 10.8 cm/sec Med Peak E' Davidson: 7.6 cm/sec MV A max davidson: 102.6 cm/sec E/E' lat: 9.0 E/E' med: 12.9 MV E/A: 0.95 Ao V2 max: 164.0 cm/sec LV V1 max: 115.0 cm/sec PA V2 max: 114.0 cm/sec Ao max P.9 mmHg LV V1 max P.3 mmHg Ao V2 mean: 112.6 cm/sec Ao mean P.7 mmHg Ao V2 VTI: 34.7 cm TR max davidson: 231.5 cm/sec TR max P.4 mmHg Interpretation Summary Normal LV size. Left ventricular systolic function is normal. The estimated ejection fraction is 60 %. Stage 1 diastolic dysfunction. Pulmonary artery systolic pressure is 24 mmHg. Contrast injection was performed. Ordering Physician: Wai Mckeon Referring Physician: Angelia Conway Performed By: Kimmie Lopez, BURT, RVT
== END 2020-04-16 11:08 | disposition home or self-care (01) ==
PROVIDERS: PCP Internal Medicine; Referring Provider Internal Medicine Cardiovascular Disease; Visit Provider Internal Medicine Cardiovascular Disease
DX: R07.89 Other chest pain (principal); I10 Essential (primary) hypertension; E78.5 Hyperlipidemia, unspecified; E66.9 Obesity, unspecified; Z68.39 Body mass index [BMI] 39.0-39.9, adult; I48.0 Paroxysmal atrial fibrillation; K21.9 Gastro-esophageal reflux disease without esophagitis; E11.9 Type 2 diabetes mellitus without complications; M19.90 Unspecified osteoarthritis, unspecified site; Z87.440 Personal history of urinary (tract) infections; Z86.19 Personal history of other infectious and parasitic diseases; Z79.4 Long term (current) use of insulin; Z79.82 Long term (current) use of aspirin; Z79.01 Long term (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 of anticoagulants; Z79.899 Other long term (current) drug therapy; Z87.891 Personal history of nicotine dependence
CPT/HCPCS: 93306; 93454; 99152; 99153; J7040; Q9957; Q9967; A4216; C1769; C1894; C8929

== ENCOUNTER → 2020-06-23 11:47 | Outpatient (CLI) | payer MEDICARE, OTHER, SELFPAY ==
[2020-06-18 13:15] VITALS: BMI 36.6
[2020-06-23 15:37] LABS: Absolute Lymphocyte Count 3.31 X10^3/uL (0.83-4.51); Absolute Neutrophil Count 7.3 X10^3/uL (2.0-7.7); Basophil# 0.06 X10^3/uL; Basophil% 0.5 % (0-1); Eosinophil# 0.25 X10^3/uL; Eosinophils% 2.1 % (0-5); Hematocrit 41.8 % (40-54); Hemoglobin 13.5 g/dL (13.0-16.5); Lymphocyte # 3.31 X10^3/ul (0.83-4.51); Lymphocyte % 28.3 % (19-41); Mean Corp Hgb Conc 32.3 g/dL (32-36); Mean Corpuscular Hgb 30.6 pg (27.0-32.0); Mean Corpuscular Volume 94.8 fL (80-94); Mean Platelet Vol. 12.7 fl (6.2-12.0); Monocyte# 0.76 X10^3/uL; Monocyte% 6.5 % (0-10); NRBC Flagged by Analyzer 0 % (0-5); Neutrophil # 7.25 X10^3/uL (2.7-7.7); Neutrophil % 62.1 % (47-70); Platelet Count 238 K/mm3 (150-450); RBC Distribution Width CV 12.2 % (11.6-14.6); RBC Distribution Width SD 42.9 fl (35.1-43.9); Red Blood Count 4.41 M/mm3 (4.6-6.2); White Blood Count 11.7 K/mm3 (4.4-11.0)
[2020-06-23 15:57] LABS: ALB/GLOB Ratio 0.9 RATIO (0.9-2.4); AST(SGOT) 12 U/L (15-37); Alanine Aminotransfer ALT/SGPT 24 U/L (16-61); Albumin, Serum 3.1 g/dL (3.2-5.0); Alkaline Phosphatase 90 U/L (45-117); Anion Gap 9 (5-15); BUN 39 mg/dL (7-18); BUN/Creat Ratio 25.2 RATIO (10-20); Calcium,Total 9.7 mg/dL (8.5-10.1); Chloride 97 mmol/L (98-107); Creatinine, Serum 1.55 mg/dL (0.70-1.30); EST Glomerular Filtration Rate 47 mL/min (>60); Est Glom Filt Rate - Afr Amer 57 mL/min (>60); Globulin 3.4 g/dL (2.2-4.2); Glucose 205 mg/dL (74-106); Potassium 3.6 mmol/L (3.5-5.1); Protein, Total 6.5 g/dL (6.4-8.2); Sodium Level 136 mmol/L (136-145)
== END ==
PROVIDERS: PCP Internal Medicine; Referring Provider Podiatrist; Visit Provider Podiatrist
DX: E11.621 Type 2 diabetes mellitus with foot ulcer (principal); L97.512 Non-pressure chronic ulcer of other part of right foot with fat layer exposed; E11.42 Type 2 diabetes mellitus with diabetic polyneuropathy
CPT/HCPCS: 36415; 80053; 85025

== ENCOUNTER 2020-07-02 10:45 | Outpatient (RCR) | payer MEDICARE, OTHER, SELFPAY ==
[2020-04-15 08:53] VITALS: BMI 39.5
--- NOTE | 2020-06-18 | IMM_PTH ---
PATIENT: MACHELLE SHARP LOC: U#:[id number] AGE/SX: 74/M ROOM: RE07/02/[address]: Dr. Tonya Mckeon DPM : 1945 BED: DIS: 07/02/2020 SPEC #: [id number] RECD: 06/20/20 11:17 STATUS: MARGOT REQ #: [id number] MARQUES: 06/18/20 00:[address]: Tonya Mckeon DEPT: IMMUNOHISTOCHEMISTRY RECD BY: Laura Vora ENTERED: 06/20/20 11:18 SP TYPE: IMMUNO OTHR DR: Dr. Angelia Conway DO Tissues: Skin of foot, NOS Procedures: SMA (add) CD31 (add) CD34 (add) CK8 (add) DESMIN (add) KI-67 (add) P53 (add) Vimentin (add) FACTOR VIII (add) Pankeratin (initial) MELAN-A (add) S-100 (add) PHYSICIAN & [address] [address] SPECIMEN INFORMATION: Tissue Source: Plantar right foot Clinical Info: Pedunculated hypergranular lesion Specimen Number: [id number] CPT code: 06260, 99010 x11 METHODOLOGY: Deparaffinized sections of prefer/formalin-fixed tissue or PAP/DQ stained slides are incubated with monoclonal/polyclonal antibodies/oligonucleotide probes. Localization is made via biotin free immunoperoxidase method. Appropriate controls are performed and reacted as expected. Results on target cell population are indicated in the following table: RESULTS: ANTIBODY / CLONE RESULT AE1-3 (AE1/AE3/PCK26) negative CK8 (07ocliM89) negative Vimentin (V9) positive Actin (1A4) negative Desmin (CE-R-11) negative Melan A (A103) negative S-100 (4C4.9) negative P53 (DO-7) positive, weak Ki-67 (30-9) positive, moderate to high CD31 (NAFISA/70A) positive CD34 (QBEnd-10) positive Factor VIII (R Ag) positive These tests were developed and their performance characteristics determined by [facility]. They may not have been cleared or approved by the U.S. Food and Drug Administration. The FDA has determined that such clearance or approval is not necessary. The above immunohistochemical/dualISH markers are ordered and reviewed by the Pathologist. INTERPRETATION: Pedunculated hypergranular lesion, plantar right foot, biopsy: Kaposi's sarcoma. See comment. PARMINDER:sangita 06/27/2020 Comment: [facility] supports the above diagnosis. The specimen is sent to [facility] for expert opinion, reviewed by Dr. Fabiana Rod and the above diagnosis is rendered. The complete report is viewable in the patient's EMR. Case has been reviewed in consultation with Dr. Drake who concurs with the above diagnosis. IDC:[email or web address]
[2020-06-18 13:15] VITALS: BP 164/71; PULSE 98; RESP 16; TEMP 36.2; BMI 36.6
--- NOTE | 2020-06-18 13:30 | SOF_PTH ---
PATIENT: MACHELLE SHARP LOC: U#:[id number] AGE/SX: 74/M ROOM: RE07/02/[address]: Dr. Tonya Mckeon DPM : 1945 BED: DIS: 07/02/2020 SPEC #: [id number] RECD: 06/18/20 16:35 STATUS: MARGOT AIDA #: [id number] MARQUES: 06/18/20 13:[address]: Tonya Mckeon DEPT: SURGICAL PATHOLOGY RECD BY: Jaelyn Mancilla ENTERED: 06/19/20 07:28 SP TYPE: SOFT TISS OTHR DR: Dr. Angelia Conway, DO Tissues: Soft tissues, NOS Procedures: Surgery Specimen Level IV HEADER OPERATION: Biopsy soft tissue, right foot PRE-OP DIAGNOSIS: Pedunculated hypergranular lesion TISSUE SUBMITTED: Plantar right foot MICROSCOPIC DIAGNOSIS Pedunculated hypergranular lesion, plantar right foot, biopsy: Kaposi's sarcoma. See comment. SJ:sangita 06/27/2020 COMMENT The specimen is sent to [facility] for expert opinion, reviewed by Dr. Fabiana Rod and the above diagnosis is rendered. The complete report is viewable in the patient's EMR. Immunohistochemistry ([id number]) and additional immunohistochemical stains performed at [facility] supports the above diagnosis. This case is discussed with Dr. Mckeon on 06/23/20. Case has been reviewed in consultation with Dr. Drake who concurs with the above diagnosis. IDC:AM MICROSCOPIC DESCRIPTION Slides are reviewed. GROSS DESCRIPTION Received in fixative is one container labeled with the patient's name and designated right foot ulcer biopsy. The specimen consists of a round piece salazar-light brown skin measuring 1 x 1.1 cm and up to 0.4 cm in thickness. The specimen is inked, serially sectioned and submitted entirely in one cassette. / PARMINDER:sangita 06/19/20 TC:0 CPT: 09140
--- NOTE | 2020-06-18 14:26 | HP.PCM_ITS ---
(1) Right foot ulcer Status: Chronic Qualifiers: Non-pressure ulcer stage: with fat layer exposed Qualified Code(s): L97.512 - Non-pressure chronic ulcer of other part of right foot with fat layer exposed Code(s): L97.519 - Non-pressure chronic ulcer of other part of right foot with unspecified severity (2) Type 2 diabetes mellitus with diabetic polyneuropathy Status: Chronic Code(s): E11.42 - Type 2 diabetes mellitus with diabetic polyneuropathy (3) Other specified peripheral vascular diseases Status: Suspected Code(s): I73.89 - Other specified peripheral vascular diseases (4) Venous insufficiency Status: Suspected Code(s): I87.2 - Venous insufficiency (chronic) (peripheral) (5) Hypergranulation Status: Acute Code(s): L92.9 - Granulomatous disorder of the skin and subcutaneous tissue, unspecified (6) Malnutrition Status: Chronic Code(s): E46 - Unspecified protein-calorie malnutrition (7) Delayed wound healing Status: Chronic Code(s): T14.8XXD - Other injury of unspecified body region, subsequent encounter History of Present Illness Date of Service: 06/18/20 Chief Complaint: Right foot ulcer History of Wound: This 74-year-old male with significant past medical history of diabetes, atrial fibrillation, hyperlipidemia, hypertension, blindness, insomnia, history of acute renal failure, retinitis pigmentosa, and history of venous insufficiency with multiple procedural interventions was seen for right foot ulcer. He relates the onset was 2 months ago. He was referred from the foot and ankle center after applying Betadine gauze. He relates recently the wound has protruded further from his foot and is tender while walking and during light touch. He tries to put weight on his heel in a surgical shoe but this is very difficult. He does have some cramping intermittently when walking but not on a routine distance. He does have altered sensation consistent with neuropathy. He relates his last A1c level was in the 5 range. He had x-rays performed at the foot and ankle center last week. Past Medical History Past Medical History: Chronic Problems (Last Updated 04/16/20 @ 15:04 by Carmen Carlson) Right foot ulcer (Chronic) Type 2 diabetes mellitus with diabetic polyneuropathy (Chronic) Malnutrition (Chronic) Delayed wound healing (Chronic) Paroxysmal atrial fibrillation (Chronic) Essential hypertension (Chronic) Hyperlipidemia (Chronic) Surgical History: - Allergies/Adverse Reactions: Allergies Sulfa (Sulfonamide Antibiotics) Allergy (Verified 06/18/20 13:40) Shortness of breath Gadolinium-MRI Contrast Medium [MRI] Adverse Reaction (Verified 06/18/20 13:40) Vomiting Home Medications: Ambulatory Orders Medication Instructions Recorded Cyanocobalamin [Vitamin B12] 100 mcg IM Q30D PRN 08/21/13 Enalapril Maleate [Vasotec] 10 mg PO DAILY 08/21/13 Gabapentin [Neurontin] 800 mg PO TIDCM 08/21/13 Insulin Regular, Human [Humulin R] 70 unit SC TIDCM 08/21/13 Omeprazole [Prilosec] 40 mg PO DAILY 08/21/13 Atorvastatin Calcium [Lipitor] 80 mg PO QHS 07/25/14 Aspirin [Aspirin, Baby] 81 mg PO DAILY@0800 10/09/14 carisoprodol 350 mg tablet 350 mg PO TID PRN tab 09/13/18 etodolac 400 mg tablet,extended 400 mg PO BID tab 09/13/18 release 24 hr insulin degludec 200 unit/mL (3 20 unit SC DAILY 09/13/18 mL) subcutaneous pen triamterene 37.5 1 tab PO DAILY 09/13/18 mg-hydrochlorothiazide 25 mg tablet finasteride 5 mg tablet 1 tab PO DAILY 01/23/20 hydrocodone 10 mg-acetaminophen 1 tab PO 4X/DAY 01/23/20 325 mg tablet levothyroxine 25 mcg tablet 25 mcg PO DAILY 01/23/20 minocycline 100 mg tablet 100 mg PO BID PRN tab 01/23/20 cholecalciferol (vitamin D3) 125 125 mcg PO DAILY 04/11/20 mcg (5,000 unit) capsule furosemide 40 mg tablet 40 - 80 mg PO DAILY tab 04/11/20 Multivit-Min/FA/Lycopen/Lutein 1 each PO DAILY 06/18/20 [Centrum Silver Men Tablet] - Family History Maternal Family History: Family History (Last Reviewed 04/11/20 @ 15:[address] Wai Mckeon MD) Sister Cancer Mother CVA (cerebral vascular accident) Diabetes Father Cancer Brother Myocardial infarction Brother Myocardial infarction Brother Lung cancer No pertinent history Paternal Family History: Family History (Last Reviewed 04/11/20 @ 15:[address] Wai Mckeon MD) Sister Cancer Mother CVA (cerebral vascular accident) Diabetes Father Cancer Brother Myocardial infarction Brother Myocardial infarction Brother Lung cancer No pertinent history Lives: Spouse/ Significant Other Smoking Status: Former smoker Tobacco Use: Non-smoker Review of Systems Constitutional: Denies: Chills, Fever Cardiovascular: Denies: Claudication Respiratory: Denies: Cough Gastrointestinal: Denies: Nausea, Vomiting Musculoskeletal: Reports: Foot Pain. Denies: Leg Pain Skin: Reports: Rash, Wounds Neurological: Reports: Incoordination, Numbness Hematologic/ Lymphatic: Reports: Easy Bleeding - Physical Exam Vital Signs Temp Pulse Resp BP 97.2 F L 98 16 164/71 H 06/18/20 13:15 06/18/20 13:15 06/18/20 13:15 06/18/20 13:15 General: Alert, Oriented x3, Cooperative, No apparent distress HEENT: Atraumatic Extremities: Diminished Peripheral Pulses - Audible Doppler weak biphasic PT and dorsalis pedis noted Skin: Ulcer/ Wound - No purulence, erythema, streaking, odor, infection. Adjacent skin atrophic. Hyper granulation tissue appears pedunculated to plantar right forefoot and during biopsy there is only hematogenous drainage without deep probing or necrosis. No adjacent bogginess or fluctuance., - - Adjacent compartments remain soft to palpate. Wound Measurements and Assessment WC - Nurse 1 - General Ulcer Measurement Start: 06/18/20 13:02 Freq: Status: Active Protocol: Activity Type Activity Date Activity User E-Sign Co-Sign Detail Recorded Client Recorded Date Recorded By Document 06/18/20 13:15 [facility] [id number] 06/18/20 13:34 [facility] 06/18/20 13:15 Wound Center Nurse 1 [Ulcer Assessment] #1- R PLANTAR FOOT -Combined with other wound No -Current Size (cm) - Length 1 -Current Size (cm) - Width 1.1 -Current Size (cm) - Depth 0.1 -Total Square Cm 1.1 -Date of Last Picture (Recall this 06/18/20 field) -Photo Taken Yes -Epithelialization None Present -Tunneling No -Undermining/Tunneling No -Circular Undermining No -Exudate Amt Small -Exudate Type Serosanguineous -Wound Margin Distinct, Outline Attached -Granulation Amt Large (67-100%) -Granulation Quality Hyper- granulation,Red -Slough/Fibrin Yes -Necrosis Amt Small (1-33%) -Necrotic Tissue Type Adherent Slough -Texture (Hannah-wound Skin Appearance) Assessed, Scarring -Moisture (Hannah-wound Skin Appearance Assessed ) -Color (Hannah-wound Skin Appearance) Assessed -Temperature (Hannah-wound Skin No Abnormality Appearance) (Pt Warm) -Tenderness on Palpation (Hannah-wound No Skin Appearance) -Ulcer Cleansing Rinsed/ Irrigated with Saline -Foul Odor after Cleansing No -Anesthetic Used 5% Lidocaine Gel [Edema Assessment] -Lower Limb Edema Present Yes -Right Calf (cm) 52 -Right Ankle (cm) 33.1 -Left Calf (cm) 52.1 -Left Ankle (cm) 32.2 WC - Nurse 2 - General Ulcer CM Notes Start: 06/18/20 13:02 Freq: Status: Active Protocol: Activity Type Activity Date Activity User E-Sign Co-Sign Detail Recorded Client Recorded Date Recorded By Document 06/18/20 14:05 [facility] [id number] 06/18/20 14:23 [facility] 06/18/20 14:05 Wound Center Nurse 2 [Procedure/Treatment] #1- R PLANTAR FOOT -Time 14:20 -Correct Patient Yes -Correct Side, Site, Position Yes -Correct Procedure Yes -Procedure Performed Yes -Type of Procedure Biopsy -Clinical Debridement Subcutaneous -Tissue Removed Subcutaneous -Post Debridement (cm) - Length 1 -Post Debridement (cm) - Width 1.2 -Post Debridement (cm) - Depth 0.2 -Total Square (Post) (cm) 1.2 -Area of Debridement (cm) - Length 1 -Area of Debridement (cm) - Width 1.2 -Total Square (Area) (cm) 1.2 -Tunneling No -Undermining/Tunneling No -Circular Undermining No -Wound/Ulcer Outcome Not Healed -Ulcer Cleansing Rinsed/ Irrigated with Saline -Foul Odor after Cleansing No -Bioengineered Tissue No -Bleeding Controlled with Pressure,Silver Nitrate, SURGIFOAM -Offloading Yes -Type of Offloading Surgical Shoe -Treatment Response Procedure Tolerated Well -Debridement - Subq, 1st 20sq cm No -I&D / Paring / Biopsy Punch bx skin ( includes simple close, if done ), single lesion,Incision bx skin (eg: wedge)(incl simple close, if done), single lesion [See Physician Procedure note for Specifics] Pain Scale: 0-10 Numeric [Pain] -Is Patient Pain Free? Yes Musculoskeletal: No Tenderness to Palpation of Joints or Extremities, Muscle Wasting Neurological: - - Lack of epicritic sensation to light touch is consistent with neuropathy Psych/Mental Status: Normal Affect, Appropriate Debridement Note Post-Debridement Measurements/Treatment WC - Nurse 2 - General Ulcer CM Notes Start: 06/18/20 13:02 Freq: Status: Active Protocol: Activity Type Activity Date Activity User E-Sign Co-Sign Detail Recorded Client Recorded Date Recorded By Document 06/18/20 14:05 [facility] [id number] 06/18/20 14:23 [facility] 06/18/20 14:05 Wound Center Nurse 2 #1- R PLANTAR FOOT -Time 14:20 -Correct Patient Yes -Correct Side, Site, Position Yes -Correct Procedure Yes -Procedure Performed Yes -Type of Procedure Biopsy -Clinical Debridement Subcutaneous -Tissue Removed Subcutaneous -Post Debridement (cm) - Length 1 -Post Debridement (cm) - Width 1.2 -Post Debridement (cm) - Depth 0.2 -Total Square (Post) (cm) 1.2 -Area of Debridement (cm) - Length 1 -Area of Debridement (cm) - Width 1.2 -Total Square (Area) (cm) 1.2 -Tunneling No -Undermining/Tunneling No -Circular Undermining No -Wound/Ulcer Outcome Not Healed -Ulcer Cleansing Rinsed/ Irrigated with Saline -Foul Odor after Cleansing No -Bioengineered Tissue No -Bleeding Controlled with Pressure,Silver Nitrate, SURGIFOAM -Offloading Yes -Type of Offloading Surgical Shoe -Treatment Response Procedure Tolerated Well -Debridement - Subq, 1st 20sq cm No -I&D / Paring / Biopsy Punch bx skin ( includes simple close, if done ), single lesion,Incision bx skin (eg: wedge)(incl simple close, if done), single lesion Pain Scale: 0-10 Numeric Is Patient Pain Free? Yes Wound debrided: plantar forefoot Laterality: Right Wound Grade/Stage: grade 1 Type of Debridement: Excisional debridement Anesthesia Used: 5% Lidocaine Gel Depth: in the subcutaneous layer Percentage of wound debrided: 100 Instrument Used: #15 blade, Forceps, - - 3 mm punch biopsy Tissue Removed: fibrous, devitalized subcutaneous, biofilm, slough, hypergranulation tissue Severity: Fat Layer Exposed Amount of bleeding with debridement: Mild Bleeding Controlled with: Pressure Patient tolerated procedure well biopsy sent to for histopathological testing (shave/punch) Assessment/Plan Active Problems (Last Updated 04/16/20 @ 15:04 by Carmen Carlson) Right foot ulcer (Chronic) Type 2 diabetes mellitus with diabetic polyneuropathy (Chronic) Hypergranulation (Acute) Malnutrition (Chronic) Delayed wound healing (Chronic) Assessment: Plantar right foot ulcer fat layer exposed with hyper granulation tissue, no infection. Diabetes with neuropathy. Delayed healing. Peripheral vascular disease work-up in process. Venous insufficiency. Lower extremity edema. Malnutrition suspected Plan: I reviewed and discussed his case today. Debridement was performed today as noted in the clinical panel to all of the ulcer sites. After verbal consent, an additional soft tissue biopsy was performed including a 3 mm punch biopsy. This was sent to pathology for histopathological evaluation. Pressure and Gelfoam application was applied to maintain hemostasis. He tolerated this well. The following work up and care recommendations were made: Dressing: Betadine wet-to-dry. Wash: Soap and water. Imaging: Right foot x-rays were reviewed from the foot and ankle center from 06-10-20 without any acute fractures or dislocations, foreign body soft tissue emphysema or osseous destruction adjacent to the ulcer site. Offload: Surgical shoe with heel weightbearing. Offloading pocket has been fabricated to take additional pressure off of this ulcer site. Diagnostic data: I recommend updating labs including CBC and CMP. He relates he is about to get all this updated with his primary care physician, Dr. Conway. He was reassured he does not need to get 2 sets of the same labs. I provided him with an order and he was advised to call at the same time. Vascular: I recommend noninvasive vascular studies and an order was provided including segmental leg and thigh pressures, RAF, and systolic toe pressures. Edema: Elevation, routine muscle contraction, and compression garments were recommended. Tubigrip's were dispensed today. I recommend updating his venous insufficiency studies with Doppler including reflux evaluation. An order was provided and we will help him get scheduled. Infection: He was reassured no local signs of infection are noted today. To monitor. Pain: Controlled due to her neuropathy. Host factors: Continue glycemic control as recommend did. Nutrition: To maintain proper diabetic diet and to take nutritional supplementation to optimize healing. I answered all the patient's questions. To return to the wound healing center in 1 week or call sooner if the patient has any questions or concerns. Note: 2theloo speech recognition key account executive software was used to create portions of this document. Sound-alike and misspelled words, as well as other key account executive errors may be contained in the documentation. The problems addressed require a moderate decision making level which includes one or more chronic illnesses (w/ exacerbation, progression, or side effects), two or more stable chronic illnesses, one undiagnosed new problem w/ uncertain prognosis, one acute illness with systemic symptoms, or one acute complicated injury. The medical decision making level is moderate. There is noted moderate risk of morbidity after considering this treatment plan and diagnostic data. Considerations were given to prescription management, decisions regarding surgical options, or social determinants of health. -----. macra 2020: His medications and allergies were reviewed and reconciled. He is a current tobacco none user. It is noted he was a prior former smoker. No falls were reported this past year. He has a body mass index that is elevated at 36.6. His blood pressure is 164/71 which is elevated. Nutrition and activity recommendations were reviewed to improve blood pressure and optimize healing potential. To follow-up with primary care physician.
[2020-06-25 13:31] VITALS: BP 131/59; PULSE 81; RESP 18; TEMP 36.3; BMI 36.6
--- NOTE | 2020-06-25 14:38 | PN.PCM_ITS ---
(1) Right foot ulcer Status: Chronic Qualifiers: Non-pressure ulcer stage: with fat layer exposed Qualified Code(s): L97.512 - Non-pressure chronic ulcer of other part of right foot with fat layer exposed Code(s): L97.519 - Non-pressure chronic ulcer of other part of right foot with unspecified severity (2) Type 2 diabetes mellitus with diabetic polyneuropathy Status: Chronic Code(s): E11.42 - Type 2 diabetes mellitus with diabetic polyneuropathy (3) Other specified peripheral vascular diseases Status: Suspected Code(s): I73.89 - Other specified peripheral vascular diseases (4) Venous insufficiency Status: Suspected Code(s): I87.2 - Venous insufficiency (chronic) (peripheral) (5) Hypergranulation Status: Acute Code(s): L92.9 - Granulomatous disorder of the skin and subcutaneous tissue, unspecified (6) Malnutrition Status: Chronic Code(s): E46 - Unspecified protein-calorie malnutrition (7) Delayed wound healing Status: Chronic Code(s): T14.8XXD - Other injury of unspecified body region, subsequent encounter (8) Skin cancer Status: Suspected Code(s): C44.90 - Unspecified malignant neoplasm of skin, unspecified Type of Wound Date of Service: 06/25/20 Chief Complaint: Right foot ulcer History of Wound: This 74-year-old male with significant past medical history of diabetes, atrial fibrillation, hyperlipidemia, hypertension, blindness, insomnia, history of acute renal failure, retinitis pigmentosa, and history of venous insufficiency with multiple procedural interventions was seen for right foot ulcer. He denies fever, chill, nausea, vomiting, recent weight loss, swollen lymph nodes or other recent illness. He denies redness or odor to the foot. He relates his foot feels much better since his lesion was removed last week and it appears smaller. He has been offloading with a surgical shoe. He is with his today. Progress of Wound: Stable - Physical Exam Vital Signs Temp Pulse Resp BP 97.4 F L 81 18 131/59 H 06/25/20 13:31 06/25/20 13:31 06/25/20 13:31 06/25/20 13:31 General: Alert, Oriented x3, Cooperative, No apparent distress HEENT: Atraumatic Extremities: No cyanosis, Capillary Refill Less than 3 Seconds, No Calf Tenderness - Negative Arianna and Walker sign bilateral. Compartments are soft to palpate lower extremities, Diminished Peripheral Pulses, Edema Skin: Ulcer/ Wound - Granular-based ulcer without aggressive hyper granulation reformation this past week. Adjacent skin is atrophic and hairless. There is no purulence, erythema, string, odor, infection or necrosis. There is no bogginess, fluctuance, or crepitus Wound Measurements and Assessment WC - Nurse 1 - General Ulcer Measurement Start: 06/18/20 13:02 Freq: Status: Active Protocol: Activity Type Activity Date Activity User E-Sign Co-Sign Detail Recorded Client Recorded Date Recorded By Document 06/25/20 13:31 [facility] [id number] 06/25/20 13:41 [facility] 06/25/20 13:31 Wound Center Nurse 1 [Ulcer Assessment] #1- R PLANTAR FOOT -Combined with other wound No -Current Size (cm) - Length 0.3 -Current Size (cm) - Width 0.1 -Current Size (cm) - Depth 0.2 -Total Square Cm 0.03 -Photo Taken No -Epithelialization Medium 34-66% -Tunneling No -Undermining/Tunneling Yes -Undermining/Tunneling Starts (O' 12 clock) -Undermining/Tunneling Ends (O'clock) 12 -Maximum Distance (cm) 0.2 -Circular Undermining Yes -Exudate Amt Small -Exudate Type Serosanguineous -Wound Margin Distinct, Outline Attached -Granulation Amt Large (67-100%) -Granulation Quality Red -Slough/Fibrin Yes -Necrosis Amt Small (1-33%) -Necrotic Tissue Type Adherent Slough -Texture (Hannah-wound Skin Appearance) Assessed,Callus ,Scarring -Moisture (Hannah-wound Skin Appearance Assessed,Dry/ ) Scaly -Color (Hannah-wound Skin Appearance) Assessed -Temperature (Hannah-wound Skin No Abnormality Appearance) (Pt Warm) -Tenderness on Palpation (Hannah-wound No Skin Appearance) -Ulcer Cleansing Rinsed/ Irrigated with Saline -Foul Odor after Cleansing No -Anesthetic Used 5% Lidocaine Gel WC - Nurse 2 - General Ulcer CM Notes Start: 06/18/20 13:02 Freq: Status: Active Protocol: Activity Type Activity Date Activity User E-Sign Co-Sign Detail Recorded Client Recorded Date Recorded By Document 06/25/20 14:08 [id number] 06/25/20 14:09 06/25/20 14:08 Wound Center Nurse 2 [Procedure/Treatment] -Correct Patient No -Correct Side, Site, Position No -Correct Procedure No -Procedure Performed No -Wound/Ulcer Outcome Not Healed -Debridement - Subq, 1st 20sq cm No [See Physician Procedure note for Specifics] Pain Scale: 0-10 Numeric [Pain] -Is Patient Pain Free? Yes - Nurse 3 - General Ulcer D/C NN Start: 06/18/20 13:02 Freq: Status: Active Protocol: Activity Type Activity Date Activity User E-Sign Co-Sign Detail Recorded Client Recorded Date Recorded By Document 06/25/20 14:22 [facility] [id number] 06/25/20 14:22 [facility] 06/25/20 14:22 Wound Care Nurse 3 [Wound Dressing] #1- R PLANTAR FOOT -Ulcer Cleansing Rinsed/ Irrigated with Saline -Foul Odor after Cleansing No -Primary Dressing Applied Other -Other Dressing betadine -Primary Dressing Covered/Secured Dry Gauze, with Secured with Tape [Post Procedure Tolerated] -Treatment Response Procedure Tolerated Well Pain Scale: 0-10 Numeric [Pain] -Is Patient Pain Free? Yes - Visit Discharge [Visit Discharge Information] -Discharge Condition Stable -Ambulatory Status Ambulatory,Cane -Transportation Private Auto -Accompanied by Musculoskeletal: Muscle Wasting, - - Dorsal contracture of lesser toes with prominent metatarsal heads Lymphatic: - - Popliteal lymph nodes remain nonpalpable Neurological: - - Lack of full sensation to light touch is consistent with some potential neuropathy Psych/Mental Status: Normal Affect, Appropriate Debridement Note Post-Debridement Measurements/Treatment - Nurse 2 - General Ulcer CM Notes Start: 06/18/20 13:02 Freq: Status: Active Protocol: Activity Type Activity Date Activity User E-Sign Co-Sign Detail Recorded Client Recorded Date Recorded By Document 06/18/20 14:05 [id number] 06/18/20 14:23 Document 06/25/20 14:08 [id number] 06/25/20 14:09 06/18/20 06/25/20 14:05 14:08 Wound Center Nurse 2 #1- R PLANTAR FOOT -Time 14:20 -Correct Patient Yes No -Correct Side, Site, Position Yes No -Correct Procedure Yes No -Procedure Performed Yes No -Type of Procedure Biopsy -Clinical Debridement Subcutaneous -Tissue Removed Subcutaneous -Post Debridement (cm) - Length 1 -Post Debridement (cm) - Width 1.2 -Post Debridement (cm) - Depth 0.2 -Total Square (Post) (cm) 1.2 -Area of Debridement (cm) - Length 1 -Area of Debridement (cm) - Width 1.2 -Total Square (Area) (cm) 1.2 -Tunneling No -Undermining/Tunneling No -Circular Undermining No -Wound/Ulcer Outcome Not Healed Not Healed -Ulcer Cleansing Rinsed/ Irrigated with Saline -Foul Odor after Cleansing No -Bioengineered Tissue No -Bleeding Controlled with Pressure,Silver Nitrate, SURGIFOAM -Offloading Yes -Type of Offloading Surgical Shoe -Treatment Response Procedure Tolerated Well -Debridement - Subq, 1st 20sq cm No No -I&D / Paring / Biopsy Punch bx skin ( includes simple close, if done ), single lesion,Incision bx skin (eg: wedge)(incl simple close, if done), single lesion Pain Scale: 0-10 Numeric Is Patient Pain Free? Yes Yes - Nurse 3 - General Ulcer D/C NN Start: 06/18/20 13:02 Freq: Status: Active Protocol: Activity Type Activity Date Activity User E-Sign Co-Sign Detail Recorded Client Recorded Date Recorded By Document 06/18/20 14:29 [facility] [id number] 06/18/20 14:30 [facility] Document 06/25/20 14:22 [facility] [id number] 06/25/20 14:22 [facility] 06/18/20 06/25/20 14:29 14:22 Wound Care Nurse 3 #1- R PLANTAR FOOT -Ulcer Cleansing Rinsed/ Rinsed/ Irrigated with Irrigated with Saline Saline -Foul Odor after Cleansing No No -Primary Dressing Applied Other Other -Other Dressing BETADINE betadine -Primary Dressing Covered/Secured with Dry Gauze & Dry Gauze, Roll Gauze, Secured with Secured with Tape Tape -Other Covering DRSG PER D SOURAV DANGELON Treatment Response Procedure Procedure Tolerated Well Tolerated Well Pain Scale: 0-10 Numeric Is Patient Pain Free? Yes Yes - Visit Discharge Discharge Condition Stable Stable Ambulatory Status Ambulatory,Cane Ambulatory,Cane Transportation Private Auto Private Auto Accompanied by Wound debrided: plantar foot Laterality: Right Wound Grade/Stage: grade 1 / other work up for skin malignancy in process and results pending No debridement was completed today - diagnosis work up is in process Assessment/Plan Active Problems (Last Updated 04/16/20 @ 15:04 by Carmen Carlson) Right foot ulcer (Chronic) Type 2 diabetes mellitus with diabetic polyneuropathy (Chronic) Hypergranulation (Acute) Malnutrition (Chronic) Delayed wound healing (Chronic) Assessment: Plantar right foot ulcer fat layer exposed with hyper granulation tissue. Skin malignancy work-up is in process with pathology report undergoing specialized consultation and this is still pending. No infection. Diabetes with neuropathy. Delayed healing. Peripheral vascular disease work-up in process. Venous insufficiency. Lower extremity edema. Malnutrition suspected Plan: I reviewed and discussed his case today. Debridement was not performed today. His pathology results are still pending and are not viewable in the electronic health record system yet. I did review this case with pathologist earlier this week who did see some aggressive characteristics. There is concern of skin malignancy and this is sent for an additional consultation. Anticipated results will be available within a week and I will follow this closely. The following work up and care recommendations were made: Dressing: Betadine wet-to-dry. Wash: Soap and water. Imaging: Right foot x-rays were reviewed from the foot and ankle center from 06-10-20 without any acute fractures or dislocations, foreign body soft tissue emphysema or osseous destruction adjacent to the ulcer site. Offload: Surgical shoe with heel weightbearing. Offloading pocket has been fabricated to take additional pressure off of this ulcer site. Diagnostic data: I recommend updating labs including CBC and CMP. These labs were obtained on 06-23-20 with white blood cell count slightly elevated 11.7. It is also noted he does have reduced kidney function. Vascular: I recommend noninvasive vascular studies and an order was provided including segmental leg and thigh pressures, RAF, and systolic toe pressures. Edema: Elevation, routine muscle contraction, and compression garments were recommended. Tubigrip's were dispensed today. I recommend updating his venous insufficiency studies with Doppler including reflux evaluation. An order was provided and we will help him get scheduled. Infection: He was reassured no local signs of infection are noted today. To monitor. Pain: Controlled due to her neuropathy. Host factors: Continue glycemic control as recommend did. Nutrition: To maintain proper diabetic diet and to take nutritional supplementation to optimize healing. I answered all the patient's questions. To return to the wound healing center in 1 week or call sooner if the patient has any questions or concerns. I will call him sooner if the pathology report is available. Note: [employer] speech recognition television production technician software was used to create portions of this document. Sound-alike and misspelled words, as well as other television production technician errors may be contained in the documentation. The problems addressed require a moderate decision making level which includes one or more chronic illnesses (w/ exacerbation, progression, or side effects), two or more stable chronic illnesses, one undiagnosed new problem w/ uncertain prognosis, one acute illness with systemic symptoms, or one acute complicated injury. The medical decision making level is moderate. There is noted moderate risk of morbidity after considering this treatment plan and diagnostic data. Considerations were given to prescription management, decisions regarding surgical options, or social determinants of health. -----. macra 2020: His medications and allergies were reviewed and reconciled. He is a current tobacco none user. It is noted he was a prior former smoker. No falls were reported this past year. He has a body mass index that is elevated at 36.6. His blood pressure is 131/59 which is not elevated. Nutrition and activity recommendations were reviewed to improve health and healing potential. To follow-up with primary care physician.
[2020-07-02 11:07] VITALS: BP 128/81; PULSE 74; RESP 20; TEMP 37; BMI 36.6
--- NOTE | 2020-07-02 12:59 | VDLE_ITS ---
Reason For Study: Venous insufficiency RIGHT LEFT CFV is compressible, spontaneous, phasic, CFV is compressible, spontaneous, phasic, competent and demonstrates normal competent, and demonstrates normal augmentation. augmentation. FV is compressible, spontaneous, phasic, FV is compressible, spontaneous, phasic, competent and demonstrates normal competent and demonstrates normal augmentation. augmentation. POP V is compressible, spontaneous, phasic, POP V is compressible, spontaneous, phasic, competent and demonstrates normal competent and demonstrates normal augmentation. augmentation. T/P Trunk is compressible. T/P Trunk is compressible. PTV is compressible. PTV is compressible. RT PerV is compressible. LT PerV is compressible. GSV EVLA above knee. Nonvascularized structure noted in the left SFJ is competent and measures 0.60 x 0.71 popliteal fossa measuring 1.53 x 2.56 x 3.91. cm. GSV EVLA. GSV at knee measures 0.23 x 0.23 cm. SSV EVLA. GSV below knee is INCOMPETENT for greater SFJ is competent and measures 0.81 x 1.29 cm. than 0.5 seconds. ASV proximal calf is INCOMPETENT for greater ASV mid calf is INCOMPETENT for greater than than 0.5 seconds and measures 0.25 x 0.25 cm. 0.5 seconds and measures 0.27 x 0.23 cm. SSV at junction is competent and measures 0.27 x 0.273 cm. Procedure This is a venous duplex using B-mode, color flow and spectral Doppler. Exam performed in department. A preliminary report was called and/or faxed to . VL/Venous Duplex US - Wander Extrem Interpretation Summary No evidence for acute deep venous thrombosis bilateral lower extremities History of right great saphenous vein endovenous ablation above the knee Incompetent right great saphenous vein below the knee Incompetent right accessory saphenous vein mid calf Competent right small saphenous vein Left popliteal nonvascular 1.53 x 2.56 x 3.91 cm structure. Heterogenous. Possi ble Elizondo's cyst. Clinical correlation would be appropriate Report of left great saphenous vein and small saphenous vein endovenous ablatio n Competent left saphenofemoral junction Incompetent left accessory saphenous vein proximal calf Ordering Physician: Tonya Mckeon Referring Physician: Angelia Conway M.D. Performed By: Mora Armstrong RVT
--- NOTE | 2020-07-02 12:59 | ART_ITS ---
Reason For Study: PVD Procedure A bilateral lower extremity continuous wave Doppler with analog waveform analysis,segmental pressures,and ankle brachial indexes without exercise. Left Segmental Pressures Left brachial= 117mmHg. Left posterior tibial artery = 158mmHg. Left dorsalis pedis artery = 140mmHg. Left digit = 161 mmHg. The left dorsalis pedis waveforms are triphasic. The left posterior tibial artery waveforms are triphasic. Right Segmental Pressures Right brachial= 122mmHg. Right posterior tibial artery = 159mmHg. Right dorsalis pedis artery = 126mmHg. Right digit = 172 mmHg. The right dorsalis pedis waveforms are triphasic. The right posterior tibial artery waveforms are triphasic. Indices The right ankle brachial index by the dorsalis pedis is 1.03. The right ankle brachial index by the posterior tibial artery is 1.30. The right digital-brachial index is 1.41. The left ankle brachial index by the dorsalis pedis is 1.15. The left ankle brachial index by the posterior tibial artery is 1.58. The left digital-brachial index is 1.32. VL/Lower Ext Art Exam w/o Exercis Interpretation Summary Normal bilateral lower extremity ankle-brachial indices with normal bilateral p osterior tibial and dorsalis pedis triphasic Doppler waveforms Normal bilateral digital brachial indices although the absolute index may be ar tificially elevated Digital PPG's appear to be maintained Ordering Physician: Tonya Mckeon Referring Physician: Angelia Conway M.D. Performed By: Mora Armstrong RVT and Student
--- NOTE | 2020-07-02 16:01 | PCM.PROGNOTE ---
Subjective Subjective: This 74-year-old male follows up with the wound healing center today for right foot nonhealing ulcer. 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 He is scheduled for an oncology consultation this afternoon. He is also scheduled to have noninvasive vascular studies completed this afternoon. He has been changing his dressing and denies redness or odor. He denies fever, chill, nausea or vomiting. Objective Data Objective Data Vital Signs: Vital Signs Temp Pulse Resp BP 98.6 F 74 20 H 128/81 H 07/02/20 11:07 07/02/20 11:07 07/02/20 11:07 07/02/20 11:07 Oxygen Delivery Method Room Air Weight: 122.47 kg Body Mass Index (BMI) 36.6 Finger Stick Blood Glucose 204 Radiography Diagnostic Testing: Radiology Impression Extremity Arterial Study 07/02/20 12:59 Interpretation Summary Normal bilateral lower extremity ankle-brachial indices with normal bilateral posterior tibial and dorsalis pedis triphasic Doppler waveforms Normal bilateral digital brachial indices although the absolute index may be artificially elevated Digital PPG's appear to be maintained Ordering Physician: Tonya Mckeon Referring Physician: Angelia Conway M.D. Performed By: Mora Armstrong RVT and Student Venous Doppler Study 07/02/20 12:59 Interpretation Summary No evidence for acute deep venous thrombosis bilateral lower extremities History of right great saphenous vein endovenous ablation above the knee Incompetent right great saphenous vein below the knee Incompetent right accessory saphenous vein mid calf Competent right small saphenous vein Left popliteal nonvascular 1.53 x 2.56 x 3.91 cm structure. Heterogenous. Possible Elizondo's cyst. Clinical correlation would be appropriate Report of left great saphenous vein and small saphenous vein endovenous ablation Competent left saphenofemoral junction Incompetent left accessory saphenous vein proximal calf Ordering Physician: Tonya Mckeon Referring Physician: Angelia Conway M.D. Performed By: Mora Armstrong RVT Physical Exam Const alert and oriented x3 General Appearance: cooperative HEENT normocephalic Extremity normal capillary refill Extremity Narrative: no cyanosis, no calf tenderness, diminished pulses muscle wasting noted. no tenderness. non palpable lymph node. General Extremity: edema Skin Skin Narrative: no purulence, no erythema, no streaking, no odor, no infection. Adjacent skin is atrophic. no visible hypergranulation tissue noted. no fluctuance, bogginess or crepitus Neuro Neuro Narrative: lack of normal epicritic sensation via light touch consistent with neuropathy Assessment & Plan Assessment/Plan (1) Right foot ulcer: Status: Chronic Code(s): L97.519 - Non-pressure chronic ulcer of other part of right foot with unspecified severity Qualifiers: Non-pressure ulcer stage: with fat layer exposed Qualified Code(s): L97.512 - Non-pressure chronic ulcer of other part of right foot with fat layer exposed (2) Type 2 diabetes mellitus with diabetic polyneuropathy: Status: Chronic Code(s): E11.42 - Type 2 diabetes mellitus with diabetic polyneuropathy (3) Other specified peripheral vascular diseases: Status: Suspected Code(s): I73.89 - Other specified peripheral vascular diseases (4) Kaposi sarcoma: Status: Acute Code(s): C46.9 - Kaposi's sarcoma, unspecified Plan: I reviewed and discussed his case today.? Debridement was not performed today.? Wound measurement information is in nursing clinical panel. The following work up and care recommendations were made:? Dressing: Betadine wet-to-dry.? Wash: Soap and water.? Imaging: Right foot x-rays were reviewed from the foot and ankle center from 06-10-20 without any acute fractures or dislocations, foreign body soft tissue emphysema or osseous destruction adjacent to the ulcer site.? Offload: Surgical shoe with heel weightbearing.? Offloading pocket has been fabricated to take additional pressure off of this ulcer site.? Diagnostic data: I recommend updating labs including CBC and CMP.? These labs were obtained on 06-23-20 with white blood cell count slightly elevated 11.7.? It is also noted he does have reduced kidney function.? Pathology results were confirmed: kaposi sarcoma diagnosis was made. Oncology was performed and she will go for consultation with Dr. Ruiz this afternoon. He understands additional testing such as imaging studies of the foot, chest, or whole-body and additional laboratory diagnostic data will likely be ordered as well. He denies history of HIV and this was noted. He understands further recommendations after all of the diagnostic data is reviewed may include surgical intervention and potential amputation and/or chemotherapy or radiation. Consultation with oncology is greatly appreciated and I will follow up on the recommendations. Vascular: I recommend noninvasive vascular studies and an order was provided including segmental leg and thigh pressures, RAF, and systolic toe pressures.? This exam is scheduled for this afternoon. Edema: Elevation, routine muscle contraction, and compression garments were recommended.? Tubigrip's were dispensed today.? I recommend updating his venous insufficiency studies with Doppler including reflux evaluation.? Results are pending.? Infection: He was reassured no local signs of infection are noted today.? To monitor.? Pain: Controlled due to her neuropathy.? Host factors: Continue glycemic control as recommended.? Nutrition: To maintain proper diabetic diet and to take nutritional supplementation to optimize healing.? I answered all the patient's questions.? To return to the wound healing center in 1 week or call sooner if the patient has any questions or concerns.? Note: [employer] speech recognition product development ecologist software was used to create portions of this document. Sound-alike and misspelled words, as well as other product development ecologist errors may be contained in the documentation.? The problems addressed require a moderate decision making level which? includes one or more chronic illnesses (w/ exacerbation, progression, or side effects), two or more stable chronic illnesses, one undiagnosed new problem w/ uncertain prognosis, one acute illness with systemic symptoms, or one acute complicated injury.? The medical decision making level is moderate.? There is noted moderate risk of morbidity after considering this treatment plan and diagnostic data. Considerations were given to prescription management, decisions regarding surgical options, or social determinants of health.? -----.? macra 2020:? His medications and allergies were reviewed and reconciled.? He is a current tobacco none user.? It is noted he was a prior former smoker.? No falls were reported this past year.? He has a body mass index that is elevated at 36.6.? His blood pressure is 128/81 which is elevated.?To follow up with pcp. Nutrition and activity recommendations were reviewed to improve health and healing potential.?
== END 2020-07-02 15:26 | disposition home or self-care (01) ==
LOC: WC 10:45
PROVIDERS: PCP Internal Medicine; Referring Provider Podiatrist; Visit Provider Podiatrist
DX: E11.621 Type 2 diabetes mellitus with foot ulcer (principal); L97.412 Non-pressure chronic ulcer of right heel and midfoot with fat layer exposed; C46.9 Kaposi's sarcoma, unspecified; H35.52 Pigmentary retinal dystrophy; L92.9 Granulomatous disorder of the skin and subcutaneous tissue, unspecified; E11.42 Type 2 diabetes mellitus with diabetic polyneuropathy; E11.51 Type 2 diabetes mellitus with diabetic peripheral angiopathy without gangrene; I48.0 Paroxysmal atrial fibrillation; R60.0 Localized edema; I10 Essential (primary) hypertension; E78.5 Hyperlipidemia, unspecified; Z79.01 Long term (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 of anticoagulants; Z79.82 Long term (current) use of aspirin; Z79.4 Long term (current) use of insulin; Z79.899 Other long term (current) drug therapy; Z87.891 Personal history of nicotine dependence; E46 Unspecified protein-calorie malnutrition; I73.89 Other specified peripheral vascular diseases; I87.2 Venous insufficiency (chronic) (peripheral); M79.89 Other specified soft tissue disorders
CPT/HCPCS: 11104; 11106; 36415; 86703; 88305; 88341; 88342; 93923; 93970; 99213; G0463

== ENCOUNTER → 2020-07-11 07:33 | Outpatient (CLI) | payer MEDICARE, OTHER, SELFPAY ==
[2020-07-02 11:07] VITALS: BMI 36.6
--- NOTE | 2020-07-11 07:35 | CT_ITS ---
STUDY: CT RIGHT FOOT REASON FOR EXAM: Male, 74 years old. 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 RADIATION DOSAGE (If Supplied By Facility): CTDIvol = ( 15.35 ) mGy, DLP = ( 411.33 ) mGycm TECHNIQUE: Thin section transaxial imaging of the foot was obtained, with sagittal and coronal reconstructed images. Individualized dose optimization techniques were used for this CT. COMPARISON: None. FINDINGS: Calcaneal spurs. Degenerative changes of the tarsal articulations. Normal metatarsi. Normal metatarsophalangeal joint of the great toe. Normal tibial and fibular sesamoid bones. Normal interphalangeal joint of the great toe. Normal phalanges of the great toe. Normal second through fifth metatarsophalangeal joints. Normal interphalangeal joints and phalanges of the lesser toes. There is a 2.1 cm by 1.4 cm soft tissue nodule along the plantar aspect of the first metatarsophalangeal joint. There is evidence of skin thickening and subcutaneous edema along the dorsal aspect of the foot. CT/Extremity Lower WITH Contrast IMPRESSION: 2.1 cm x 1.4 cm soft tissue nodule in the plantar aspect of the first metatarsal phalangeal joint. Skin thickening and diffuse soft tissue swelling along the dorsal aspect of the foot. Electronically Signed: Marcus Spears MD at 10:11 EDT , Service support ,
--- NOTE | 2020-07-11 07:35 | CT_ITS ---
STUDY: CT CHEST, ABDOMEN T PELVIS WITH CONTRAST REASON FOR EXAM: Male, 74 years old. 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 Individualized dose optimization techniques were used for this CT. COMPARISON: No relevant priors. FINDINGS: There is a 1.3 cm hypodense nodule in the right lobe of the thyroid. Focal calcification is seen along its superior aspect. CHEST Minimal increased linear markings at the lung bases suggests mild scarring. There is no demonstrated pleural abnormality. Minimal coronary artery calcification. Normal mediastinum. Normal hilar regions. Normal unenhanced pulmonary arteries. Mild degree of calcific plaques at the level of the aortic arch. There are multi-level degenerative changes of the thoracic spine. There is no demonstrated abnormality of the visualized upper abdomen. ABDOMEN Normal liver. Normal gallbladder and extrahepatic biliary system. Normal spleen. Normal pancreas. Normal bilateral adrenal glands. Small cysts are also seen in the right kidney. 1 cm cyst in the posterior midportion of the left kidney. There is a 1.9 cm cyst in the lower pole of the left kidney. Normal visualized stomach. Normal small intestine. Normal colon. The appendix is visualized and appears normal. There is diffuse atherosclerotic calcification of the abdominal aorta, without a demonstrated aneurysm. Normal inferior vena cava. Normal retroperitoneum. There is a small umbilical hernia containing fat. There are diffuse degenerative changes of the visualized lumbar spine. Prior laminectomy and interpedicular screw and susie fixation at the L2-L3 and L3-L4 levels. PELVIS Mild degree of diffuse bladder wall thickening. Prostatic enlargement. It measures 5.3 cm x 5 cm. There is evidence of prior TURP. Normal visualized small intestine. Normal visualized colon. There is no pelvic fluid. There is no pelvic lymphadenopathy or mass lesion. There is diffuse atherosclerotic calcification of the pelvic arteries. CT/CT Chest, Abd, Pel w/Contrast IMPRESSION: Small bilateral renal cysts. Prostatic enlargement with indentation of the bladder base. Mild degree of diffuse bladder wall thickening. Electronically Signed: Marcus Spears MD at 10:04 EDT , Service support ,
== END ==
PROVIDERS: PCP Internal Medicine; Referring Provider Internal Medicine Medical Oncology; Visit Provider Internal Medicine Medical Oncology
DX: C46.9 Kaposi's sarcoma, unspecified (principal)
CPT/HCPCS: 71260; 73701; 74177; Q9967

== ENCOUNTER → 2020-07-21 | Outpatient (CLI) | payer MEDICARE, OTHER, SELFPAY ==
[2020-07-16 11:32] VITALS: BMI 40.9
--- NOTE | 2020-07-21 | LES_PTH ---
PATIENT: MACHELLE SHARP LOC: [facility] U#:[id number] AGE/SX: 74/M ROOM: RE07/21/[address]: Dr. Tonya Mckeon DPM : 1945 BED: DIS: 07/21/2020 SPEC #: [id number] RECD: 07/21/20 12:05 STATUS: MARGOT AIDA #: [id number] MARQUES: 07/21/20 00:[address]: Tonya Mckeon DEPT: SURGICAL PATHOLOGY RECD BY: Jaelyn Mancilla ENTERED: 07/21/20 12:56 SP TYPE: Lesion OTHR DR: Dr. Angelia Conway, DO Tissues: Skin of foot, NOS Procedures: Surgery Specimen Level IV HEADER OPERATION: 4 mm punch biopsy at soft tissue mass site, right foot PRE-OP DIAGNOSIS: Kaposi sarcoma C46.9 TISSUE SUBMITTED: Soft tissue histopathological evaluation of tumor, right foot MICROSCOPIC DIAGNOSIS Soft tissue mass of right foot, punch biopsy: Hyperkeratosis and mild acanthosis. No evidence of malignancy. See comment. AM:sangita 07/22/2020 COMMENT Clinical correlation is suggested. MICROSCOPIC DESCRIPTION Slides are reviewed. GROSS DESCRIPTION Received in fixative is one container labeled with the patient's name and designated right foot. The specimen consists of a punch biopsy of salazar-white skin measuring 0.4 cm in diameter and 0.5 cm in length. The entire specimen is submitted in one cassette. / SJ:sangita 07/21/20 TC:5 CPT: 99319
[2020-07-21 13:43] LABS: M R Staph aureus DNA By PCR Negative (Negative); Probe Check PASS; Specimen Processing Control PASS; Staph aureus DNA By PCR NEGATIVE (Negative)
== END | disposition home or self-care (01) ==
LOC: LABSPEC 12:09
PROVIDERS: PCP Internal Medicine; Referring Provider Podiatrist; Visit Provider Podiatrist
DX: S91.301A Unspecified open wound, right foot, initial encounter (principal); C46.9 Kaposi's sarcoma, unspecified
CPT/HCPCS: 87070; 87075; 87077; 87186; 87205; 87640; 88305

== ENCOUNTER → 2020-09-09 14:09 | Outpatient (CLI) | payer MEDICARE, OTHER, SELFPAY ==
[2020-08-14 08:39] VITALS: BMI 40.7
[2020-09-09 14:17] LABS: Bacteria 0 SEEN /hpf (None Seen); Mucous, Urine 0 SEEN /hpf (<or=2+); Red Blood Cells-Urine 0 SEEN /hpf (0-5); White Blood Cells 0 SEEN /hpf (0-5)
[2020-09-09 18:12] LABS: Absolute Lymphocyte Count 2.66 X10^3/uL (0.83-4.51); Absolute Neutrophil Count 7.3 X10^3/uL (2.0-7.7); Basophil# 0.04 X10^3/uL; Basophil% 0.4 % (0-1); Eosinophil# 0.31 X10^3/uL; Eosinophils% 2.8 % (0-5); Hematocrit 39.2 % (40-54); Hemoglobin 12.8 g/dL (13.0-16.5); Lymphocyte # 2.66 X10^3/ul (0.83-4.51); Lymphocyte % 24.1 % (19-41); Mean Corp Hgb Conc 32.7 g/dL (32-36); Mean Corpuscular Hgb 30.7 pg (27.0-32.0); Mean Platelet Vol. 12.9 fl (6.2-12.0); Monocyte# 0.66 X10^3/uL; NRBC Flagged by Analyzer 0 % (0-5); Neutrophil # 7.32 X10^3/uL (2.7-7.7); Neutrophil % 66.2 % (47-70); Platelet Count 182 K/mm3 (150-450); RBC Distribution Width CV 12.5 % (11.6-14.6); RBC Distribution Width SD 42.9 fl (35.1-43.9); Red Blood Count 4.17 M/mm3 (4.6-6.2); White Blood Count 11.1 K/mm3 (4.4-11.0)
[2020-09-09 18:15] LABS: Color, Urine Yellow (Yellow); Glucose, Dipstick Normal (Normal); Ketone-Dipstick Negative (Negative); Leukocyte Esterase-Dipstick Negative /ul (Negative); Nitrite-Dipstick Negative (Negative); Occult Blood-Urine Negative /ul (Negative); Protein-Dipstick Negative (Negative); Urine Bilirubin Dipstick Negative (Negative); Urine Clarity Clear (Clear); Urine Urobilinogen Normal (Normal); Urine pH 6.5 (5.0 - 8.0)
[2020-09-09 18:30] LABS: Squamous Epithelial Cells - UA 0-5 SEEN /hpf (0-5)
[2020-09-09 18:33] LABS: ALB/GLOB Ratio 0.9 RATIO (0.9-2.4); AST(SGOT) 19 U/L (15-37); Alanine Aminotransfer ALT/SGPT 30 U/L (16-61); Alkaline Phosphatase 92 U/L (45-117); Anion Gap 5 (5-15); BUN 28 mg/dL (7-18); BUN/Creat Ratio 21.7 RATIO (10-20); Calcium,Total 9.5 mg/dL (8.5-10.1); Chloride 103 mmol/L (98-107); Creatinine, Serum 1.29 mg/dL (0.70-1.30); EST Glomerular Filtration Rate 58 mL/min (>60); Est Glom Filt Rate - Afr Amer 70 mL/min (>60); Globulin 3.4 g/dL (2.2-4.2); Glucose 144 mg/dL (74-106); Potassium 4.1 mmol/L (3.5-5.1); Protein, Total 6.4 g/dL (6.4-8.2); Sodium Level 138 mmol/L (136-145); Thyroid Stim Hormone (TSH) 1.58 uIU/mL (0.358-3.74); Vitamin B12 336 pg/mL (211-911)
[2020-09-09 18:55] LABS: Microalbumin,Random Urine < 5.0 mg/L (NO RANGE EST.)
== END ==
PROVIDERS: PCP Internal Medicine; Referring Provider Internal Medicine; Visit Provider Internal Medicine
DX: E03.9 Hypothyroidism, unspecified (principal); D51.8 Other vitamin B12 deficiency anemias; E11.9 Type 2 diabetes mellitus without complications
CPT/HCPCS: 36415; 80053; 81001; 82043; 82570; 82607; 84443; 85025

== ENCOUNTER → 2020-09-15 17:07 | Outpatient (CLI) | payer MEDICARE, OTHER, SELFPAY ==
[2020-08-14 08:39] VITALS: BMI 40.7
--- NOTE | 2020-09-15 17:09 | MRI_ITS ---
STUDY: MRI RIGHT FOREFOOT WITHOUT CONTRAST REASON FOR EXAM: Soft tissue mass at the plantar aspect of the foot, biopsied Kaposi''s sarcoma. TECHNIQUE: Standardized fat and water weighted pulse sequences were obtained in all 3 orthogonal planes. COMPARISON: CT images 07/11/2020. FINDINGS: There is mild arthrosis of the metatarsophalangeal joint of the hallux with mild chondral thinning (T1 sagittal image 8) and a subchondral cyst in the base of the first proximal phalanx (inversion recovery sagittal images 6, 7). There is very mild bone edema in the tibial sesamoid (inversion recovery short axis series 5 image 16) suggestive of sesamoiditis. Normal fibular sesamoid. There is mild arthrosis of the interphalangeal joint of the hallux with mild chondral thinning (T1 sagittal image 8). Normal proximal and distal phalanges of the great toe. Normal medial and lateral heads of the flexor hallucis brevis tendons. Normal flexor and extensor hallucis longus tendons. Normal second through fifth metatarsophalangeal (MTP) joints. Normal interphalangeal joints of the second through fifth toes. Normal proximal, middle and distal phalanges of the second through fifth toes. Normal first through fourth intermetatarsal spaces. Normal flexor and extensor tendons of the second through fifth toes. Normal metatarsals. There is arthrosis of the talonavicular articulation with chondral thinning (T1 sagittal image 7) and navicular-cuneiform articulations with small marginal osteophytes, subchondral cystic change and chondral thinning (T1 sagittal images 14-19). There is atrophy with fat replacement of the intrinsic muscles of the midfoot and forefoot (T1 sagittal images 11-21). There is a soft tissue mass in the subcutis adipose space at the plantar aspect of the first metatarsophalangeal joint measuring approximately 0.7 x 2.1 x 2.3 cm (AP x transverse x length). The lesion is intermediate signal intensity with overlying skin thickening (T1 short axis series 3 images 16-20) and mostly hypointense on T2 sequences with a small amount of fluid at the medial aspect of the mass (T2 short axis series 4 images 16-20). There is edema in the subcutis adipose space at the dorsal aspect of the forefoot and midfoot. MRI/Lower Ext/No Jt/w/o IMPRESSION: Soft tissue mass at the plantar aspect of the first metatarsophalangeal joint. Mild tibial sesamoiditis. Mild arthrosis of the first metatarsophalangeal joint and interphalangeal joint of the first digit. Arthrosis of the talonavicular and navicular-cuneiform articulations. Atrophy of the intrinsic muscles of the forefoot/midfoot suggestive of peripheral neuropathy. Electronically Signed: Aneesh Hoover MD at 10:11 EDT Tel , Service support ,
== END ==
PROVIDERS: PCP Internal Medicine; Visit Provider Orthopaedic Surgery
DX: R22.41 Localized swelling, mass and lump, right lower limb (principal)
CPT/HCPCS: 73718

== ENCOUNTER → 2020-09-24 | Outpatient (CLI) | payer MEDICARE, OTHER, SELFPAY ==
[2020-08-14 08:39] VITALS: BMI 40.7
[2020-09-24 19:22] LABS: M R Staph aureus DNA By PCR Negative (Negative); Probe Check PASS; Specimen Processing Control PASS; Staph aureus DNA By PCR NEGATIVE (Negative)
== END | disposition home or self-care (01) ==
PROVIDERS: PCP Internal Medicine; Referring Provider Podiatrist Foot & Ankle Surgery; Visit Provider Podiatrist Foot & Ankle Surgery
DX: L02.612 Cutaneous abscess of left foot (principal); L97.529 Non-pressure chronic ulcer of other part of left foot with unspecified severity
CPT/HCPCS: 87070; 87077; 87186; 87205; 87640

== ENCOUNTER → 2020-09-25 15:48 | Outpatient (CLI) | payer MEDICARE, OTHER, SELFPAY ==
[2020-08-14 08:39] VITALS: BMI 40.7
[2020-09-25 17:37] LABS: Absolute Lymphocyte Count 4.04 X10^3/uL (0.83-4.51); Absolute Neutrophil Count 6.3 X10^3/uL (2.0-7.7); Basophil% 0.8 % (0-1); Eosinophil# 0.72 X10^3/uL; Eosinophils% 5.9 % (0-5); Hemoglobin 13.3 g/dL (13.0-16.5); Lymphocyte # 4.04 X10^3/ul (0.83-4.51); Lymphocyte % 33.1 % (19-41); Mean Corp Hgb Conc 33.3 g/dL (32-36); Mean Corpuscular Hgb 30.9 pg (27.0-32.0); Mean Corpuscular Volume 92.8 fL (80-94); Mean Platelet Vol. 12.4 fl (6.2-12.0); Monocyte# 0.96 X10^3/uL; Monocyte% 7.9 % (0-10); NRBC Flagged by Analyzer 0 % (0-5); Neutrophil # 6.31 X10^3/uL (2.7-7.7); Neutrophil % 51.8 % (47-70); Platelet Count 216 K/mm3 (150-450); RBC Distribution Width CV 12.5 % (11.6-14.6); RBC Distribution Width SD 43.1 fl (35.1-43.9); Red Blood Count 4.31 M/mm3 (4.6-6.2); White Blood Count 12.2 K/mm3 (4.4-11.0)
[2020-09-25 17:49] LABS: Erythrocyte Sedimentation Rate 4 mm/hr (0-20)
[2020-09-25 18:11] LABS: ALB/GLOB Ratio 0.9 RATIO (0.9-2.4); AST(SGOT) 16 U/L (15-37); Alanine Aminotransfer ALT/SGPT 28 U/L (16-61); Alkaline Phosphatase 101 U/L (45-117); Anion Gap 6 (5-15); BUN 43 mg/dL (7-18); BUN/Creat Ratio 28.1 RATIO (10-20); Calcium,Total 9.2 mg/dL (8.5-10.1); Chloride 100 mmol/L (98-107); Creatinine, Serum 1.53 mg/dL (0.70-1.30); EST Glomerular Filtration Rate 48 mL/min (>60); Est Glom Filt Rate - Afr Amer 58 mL/min (>60); Globulin 3.5 g/dL (2.2-4.2); Glucose 75 mg/dL (74-106); Potassium 3.4 mmol/L (3.5-5.1); Protein, Total 6.5 g/dL (6.4-8.2); Sodium Level 137 mmol/L (136-145)
== END ==
PROVIDERS: PCP Internal Medicine; Referring Provider Podiatrist Foot & Ankle Surgery; Visit Provider Podiatrist Foot & Ankle Surgery
DX: L03.116 Cellulitis of left lower limb (principal); L97.529 Non-pressure chronic ulcer of other part of left foot with unspecified severity
CPT/HCPCS: 36415; 80053; 85025; 85652; 86140

== ENCOUNTER → 2021-02-09 13:44 | Outpatient (CLI) | payer MEDICARE, OTHER, SELFPAY | PROVIDERS: PCP Internal Medicine; Referring Provider Internal Medicine; Visit Provider Internal Medicine | DX: I49.9 Cardiac arrhythmia, unspecified (principal) | CPT/HCPCS: 93225; 93226 ==

== ENCOUNTER 2021-05-04 13:19 | Outpatient (CLI) | payer MEDICARE, OTHER, SELFPAY ==
[2021-05-04 15:16] LABS: AUTO B FLUID DILUENT BKGD CT WBC <0.1 RBC <0.01 (W<.1,R<.01); Appearance /Synovial Fluid Cloudy (CLEAR); Color / Synovial Fluid Yellow (Pale Yellow); Source / Synovial Fluid RT KNEE
[2021-05-04 15:17] LABS: RBC /Synovial Fluid 0.009 10^6/uL (0)
[2021-05-04 15:44] LABS: Lymph 5 %; Neutrophil 95 % (0-25)
[2021-05-04 15:48] LABS: Body Fluid QC Type(s) BF1Q
[2021-05-06 14:22] LABS: Pathologist Comment Reviewed
== END 2021-05-04 23:59 | disposition home or self-care (01) ==
PROVIDERS: PCP Internal Medicine; Visit Provider Specialist
DX: Z96.651 Presence of right artificial knee joint (principal)
CPT/HCPCS: 87015; 87070; 87075; 87077; 87101; 87116; 87186; 87205; 87206; 89050; 89051

== ENCOUNTER → 2021-08-26 | Outpatient (CLI) | payer MEDICARE, OTHER, SELFPAY ==
[2021-08-26 12:37] LABS: Mucous, Urine 0 SEEN /hpf (<or=2+)
[2021-08-26 15:15] LABS: Color, Urine Yellow (Yellow); Glucose, Dipstick Normal (Normal); Ketone-Dipstick Negative (Negative); Leukocyte Esterase-Dipstick Negative /ul (Negative); Nitrite-Dipstick Negative (Negative); Occult Blood-Urine Negative /ul (Negative); Protein-Dipstick Negative (Negative); Specific Gravity, Urine 1.015 (1.002-1.030); Urine Bilirubin Dipstick Negative (Negative); Urine Clarity Clear (Clear); Urine Urobilinogen Normal (Normal)
[2021-08-26 15:18] LABS: Absolute Neutrophil Count 7.6 X10^3/uL (2.0-7.7); Basophil# 0.06 X10^3/uL; Basophil% 0.5 % (0-1); Eosinophil# 0.36 X10^3/uL; Eosinophils% 2.8 % (0-5); Hematocrit 34.1 % (40-54); Lymphocyte % 30.8 % (19-41); Mean Corp Hgb Conc 32.3 g/dL (32-36); Mean Corpuscular Hgb 28.1 pg (27.0-32.0); Mean Platelet Vol. 11.5 fl (6.2-12.0); Monocyte# 0.92 X10^3/uL; Monocyte% 7.1 % (0-10); NRBC Flagged by Analyzer 0 % (0-5); Neutrophil # 7.58 X10^3/uL (2.7-7.7); Neutrophil % 58.3 % (47-70); Platelet Count 224 K/mm3 (150-450); RBC Distribution Width CV 15.5 % (11.6-14.6); RBC Distribution Width SD 49.3 fl (35.1-43.9); Red Blood Count 3.92 M/mm3 (4.6-6.2)
[2021-08-26 15:38] LABS: Bacteria RARE /hpf (None Seen); Red Blood Cells-Urine 0-5 SEEN /hpf (0-5); Squamous Epithelial Cells - UA 5-10 SEEN /hpf (0-5); White Blood Cells 0-5 SEEN /hpf (0-5)
[2021-08-26 15:40] LABS: Vitamin B12 627 pg/mL (211-911)
[2021-08-26 15:47] LABS: ALB/GLOB Ratio 0.9 RATIO (0.9-2.4); AST(SGOT) 13 U/L (15-37); Alanine Aminotransfer ALT/SGPT 25 U/L (16-61); Albumin, Serum 3.1 g/dL (3.2-5.0); Alkaline Phosphatase 105 U/L (45-117); Anion Gap 9 (5-15); BUN 41 mg/dL (7-18); BUN/Creat Ratio 25.9 RATIO (10-20); Calcium,Total 9.7 mg/dL (8.5-10.1); Chloride 90 mmol/L (98-107); Creatinine, Serum 1.58 mg/dL (0.70-1.30); EST Glomerular Filtration Rate 46 mL/min (>60); Est Glom Filt Rate - Afr Amer 55 mL/min (>60); Globulin 3.3 g/dL (2.2-4.2); Glucose 163 mg/dL (74-106); Protein, Total 6.4 g/dL (6.4-8.2); Sodium Level 129 mmol/L (136-145); Thyroid Stim Hormone (TSH) 3.04 uIU/mL (0.358-3.74)
[2021-08-26 15:59] LABS: Microalbumin,Random Urine < 5.0 mg/L (NO RANGE EST.)
== END | disposition home or self-care (01) ==
LOC: MTLAB 12:34
PROVIDERS: PCP Internal Medicine; Referring Provider Internal Medicine; Visit Provider Internal Medicine
DX: I12.9 Hypertensive chronic kidney disease with stage 1 through stage 4 chronic kidney disease, or unspecified chronic kidney disease (principal); E11.49 Type 2 diabetes mellitus with other diabetic neurological complication; E11.65 Type 2 diabetes mellitus with hyperglycemia; E11.22 Type 2 diabetes mellitus with diabetic chronic kidney disease; E03.9 Hypothyroidism, unspecified; D51.8 Other vitamin B12 deficiency anemias; N18.2 Chronic kidney disease, stage 2 (mild)
CPT/HCPCS: 36415; 80053; 81001; 82043; 82570; 82607; 84443; 85025

== ENCOUNTER 2021-10-02 15:49 | Outpatient (CLI) | payer MEDICARE, OTHER, SELFPAY ==
[2021-10-02 18:13] LABS: Absolute Neutrophil Count 5.6 X10^3/uL (2.0-7.7); Basophil# 0.09 X10^3/uL; Basophil% 0.8 % (0-1); Eosinophil# 1.78 X10^3/uL; Eosinophils% 16.1 % (0-5); Hematocrit 31.6 % (40-54); Hemoglobin 9.9 g/dL (13.0-16.5); Lymphocyte % 26.2 % (19-41); Mean Corp Hgb Conc 31.3 g/dL (32-36); Mean Corpuscular Hgb 29.1 pg (27.0-32.0); Mean Corpuscular Volume 92.9 fL (80-94); Mean Platelet Vol. 11.6 fl (6.2-12.0); Monocyte# 0.67 X10^3/uL; NRBC Flagged by Analyzer 0 % (0-5); Neutrophil # 5.58 X10^3/uL (2.7-7.7); Neutrophil % 50.4 % (47-70); Platelet Count 303 K/mm3 (150-450); White Blood Count 11.1 K/mm3 (4.4-11.0)
== END 2021-10-02 23:59 | disposition home or self-care (01) ==
LOC: MTLAB 15:50
PROVIDERS: PCP Internal Medicine; Referring Provider Internal Medicine; Visit Provider Internal Medicine
DX: D62 Acute posthemorrhagic anemia (principal)
CPT/HCPCS: 36415; 85025

== ENCOUNTER → 2021-10-05 | Outpatient (CLI) | payer MEDICARE, OTHER, SELFPAY ==
[2021-10-05 17:34] LABS: Amphetamine Urine VISTA NEGATIVE (<1000 ng/mL); Barbiturate Urine VISTA NEGATIVE (< 200 ng/mL); Benzodiazepine Urine VISTA NEGATIVE (< 200 ng/mL); Cocaine Urine VISTA NEGATIVE (< 300 ng/mL); Ecstacy Urine VISTA NEGATIVE (< 500 ng/mL); Methadone Urine VISTA NEGATIVE (< 300 ng/mL); PCP Urine VISTA NEGATIVE (< 25 ng/mL); THC Urine VISTA NEGATIVE (< 50 ng/mL); Vista UDS pH Range 5
== END | disposition home or self-care (01) ==
LOC: LAB 16:20
PROVIDERS: PCP Internal Medicine; Visit Provider Anesthesiology Pain Medicine
DX: F11.20 Opioid dependence, uncomplicated (principal)
CPT/HCPCS: 80307

== ENCOUNTER → 2022-04-12 | Outpatient (CLI) | payer MEDICARE, OTHER, SELFPAY ==
[2022-04-12 18:50] LABS: PSA,Total - Annual Screen 2.71 ng/mL (0.00-4.00)
== END | disposition home or self-care (01) ==
LOC: MTLAB 16:13
PROVIDERS: PCP Internal Medicine; Referring Provider Urology; Visit Provider Urology
DX: Z12.5 Encounter for screening for malignant neoplasm of prostate (principal)
CPT/HCPCS: 36415; 84153; G0103

== ENCOUNTER 2022-05-22 15:39 | Emergency (ER) | payer MEDICARE, OTHER, SELFPAY ==
[2022-05-22 15:40] VITALS: BP 131/74; PULSE 61; RESP 18; TEMP 36.6; O2SAT 99; BMI 38.2
--- NOTE | 2022-05-22 15:48 | EDS_ITS ---
HPI <ENEDINA Pope - Last Filed: 05/22/22 16:45> HPI - Fall History of Present Illness Chief Complaint: Fall Narrative Narrative: Patient was leaving the ER with his who had been a patient when he tripped on the rug and landed on his right knee. No head injury or LOC. Bystanders assisted him up and brought him in for evaluation. He has a history of right knee replacement. He also states the fall marino his back and is having increased back pain. There was no direct trauma to the back. [facility] <ENEDINA Pope - Last Filed: 05/22/22 16:45> [facility] Medical History Acute renal failure Chronic back pain Essential hypertension GERD (gastroesophageal reflux disease) Hyperlipidemia Hypothyroidism Insomnia Legal blindness Osteoarthritis Paroxysmal atrial fibrillation Renal insufficiency Retinitis pigmentosa Sepsis Type II diabetes mellitus UTI (urinary tract infection) Home Medications cyanocobalamin (vitamin B-12) 1,000 mcg/mL injection solution 100 mcg IM Q30D PRN Fatigue 08/21/13 [History Last Taken Unknown] enalapril maleate 10 mg tablet 10 mg PO DAILY 08/21/13 [History Last Taken 04/16/20] gabapentin 800 mg tablet 800 mg PO TIDCM 08/21/13 [History Last Taken 10/25/14 04:00] insulin regular human 100 unit/mL injection solution 70 unit subcut TIDCM 08/21/13 [History Last Taken Unknown] omeprazole 40 mg capsule,delayed release 40 mg PO DAILY 08/21/13 [History Last Taken 10/25/14 04:00] atorvastatin 80 mg tablet 80 mg PO QHS 07/25/14 [History Last Taken Unknown] aspirin 81 mg chewable tablet 81 mg PO DAILY@0800 10/09/14 [History Last Taken Unknown] carisoprodol 350 mg tablet 350 mg PO TID PRN Muscle Spasm 09/13/18 [History Last Taken Unknown] etodolac 400 mg tablet,extended release 24 hr 400 mg PO BID 09/13/18 [History Last Taken Unknown] insulin degludec 200 unit/mL (3 mL) subcutaneous pen (Tresiba FlexTouch U-200 insulin) 20 unit subcut DAILY 09/13/18 [History Last Taken Unknown] triamterene 37.5 mg-hydrochlorothiazide 25 mg tablet 1 tab PO DAILY 09/13/18 [History Last Taken 04/16/20] finasteride 5 mg tablet 1 tab PO DAILY 01/23/20 [History Last Taken Unknown] hydrocodone 10 mg-acetaminophen 325 mg tablet 1 tab PO 4X/DAY 01/23/20 [History Last Taken Unknown] levothyroxine 25 mcg tablet 25 mcg PO DAILY 01/23/20 [History Last Taken 04/16/20] minocycline 100 mg tablet 100 mg PO BID PRN Rash/Topical Irritation 01/23/20 [History Last Taken Unknown] cholecalciferol (vitamin D3) 125 mcg (5,000 unit) capsule 125 mcg PO DAILY 04/11/20 [History Last Taken Unknown] furosemide 40 mg tablet 40 - 80 mg PO DAILY 04/11/20 [History Last Taken Unknown] xhooybbu-fto-kgjza acid 300 mcg-lycopene 600 mcg-lutein 300 mcg tablet 1 each PO DAILY 06/18/20 [History Last Taken Unknown] apixaban 5 mg tablet (Eliquis) 5 mg PO BID 07/02/20 [History Last Taken Unknown] metoprolol tartrate 25 mg tablet 25 mg PO BID #60 tabs 06/08/21 [Rx Last Taken Unknown] Allergy/AdvReac Type Severity Reaction Status Date / Time Sulfa (Sulfonamide Allergy Shortness Verified 05/22/22 15:40 Antibiotics) of breath Gadolinium-MRI Contrast AdvReac Vomiting Verified 05/22/22 15:40 Medium [MRI] Family History Sister Cancer ovarian Mother CVA (cerebral vascular accident) Diabetes Father Cancer malignant melanona, bladder Brother Myocardial infarction Brother Myocardial infarction Brother Lung cancer Surgical History History of arthroscopy of knee History of carpal tunnel surgery of left wrist History of cataract extraction History of discectomy History of elbow surgery History of left heart catheterization (04/16/20) History of spinal fusion History of surgery on wrist History of thumb surgery History of transurethral resection of prostate History of vein stripping Social History household members: spouse and other details: nephew Smoking Status: Former smoker Tobacco: How many years used: 10 how long ago did patient quit smokin years ago alcohol intake: never substance use type: does not use caffeine: Yes Type: carbonated beverages Number of servings: 5 what type of physical activity do you participate in: none seatbelt use: always do you feel safe at home: Yes ROS <ENEDINA Pope - Last Filed: 05/22/22 16:45> ROS ED ROS Narrative Constitutional: Negative for fever, chills, malaise. Neuro: Negative for motor/sensory dysfunction. Skin: Positive for abrasion. Musc: Positive for right knee pain, trauma. Heme: Negative for easy bruising, bleeding, lymphadenopathy. EXAM <ENEDINA Pope - Last Filed: 05/22/22 16:45> Physical Exam Narrative Exam Narrative: CONST: Patient sitting in no acute distress. EYES: Normal inspection. ENT: Normal inspection, moist mucous membranes. NECK: Normal inspection. RESP: No respiratory distress, CTAB. CVS: Regular rate and rhythm, no murmur, no gallop. Back: Normal inspection, healed midline lumbar incision, no midline tenderness or step-offs, right lumbar paraspinal tenderness. SKIN: Small right knee abrasion. EXTREMITIES: No evidence of gross trauma or deformity. Prior bilateral knee replacement incisions, tender over right patella with no effusion, normal extension. No other tenderness of upper or lower extremities, 2+ radial DP pulses. NEURO: Oriented x4. PSYCH: Normal affect. Const Vital Signs: 05/22/22 15:40 05/22/22 15:44 05/22/22 17:08 Temperature 98 F Temperature Source Temporal Pulse Rate 61 72 Respiratory Rate 18 15 Respiratory Effort Normal Non-Labored Respiratory Depth Normal Respiratory Pattern Normal Blood Pressure 131/74 H 131/68 H Blood Pressure Mean 93 Pulse Ox 99 98 Oxygen Delivery Method Room Air <Dr. Mark Kapoor DO - Last Filed: 05/22/22 20:45> Physical Exam Const Vital Signs: 05/22/22 15:40 05/22/22 15:44 05/22/22 17:08 Temperature 98 F Temperature Source Temporal Pulse Rate 61 72 Respiratory Rate 18 15 Respiratory Effort Normal Non-Labored Respiratory Depth Normal Respiratory Pattern Normal Blood Pressure 131/74 H 131/68 H Blood Pressure Mean 93 Pulse Ox 99 98 Oxygen Delivery Method Room Air MDM <ENEDINA Pope - Last Filed: 05/22/22 16:45> [facility] Narrative Medical decision making narrative: History gathered from: Patient and Patient had a mechanical fall landing on his flexed right knee. History of knee replacement. There is a small abrasion and mild tenderness over the patella. No deformity, normal flexion and extension, no varus or valgus laxity. Neurovascularly intact. Knee x-ray shows prosthesis intact with no evidence of fracture. Patient is able to ambulate. Was given a dose of [place] here and states he has some at home if he needs it. He was discharged in stable condition. Differential: Knee contusion versus fracture Radiography Diagnostic Testing: Clinical Impression(s) from Imaging Studies Knee X-Ray 05/22/22 16:00 IMPRESSION: Total knee prosthesis in anatomic alignment. There are no osseous abnormalities. Electronically Signed: Foster Delatorre MD at 16:30 EDT , ED attending interpretation of right knee shows no fracture or dislocation, knee prosthesis intact <Dr. Mark Kapoor DO - Last Filed: 05/22/22 20:45> [facility] Narrative Medical decision making narrative: History gathered from: Patient and Patient had a mechanical fall landing on his flexed right knee. History of knee replacement. There is a small abrasion and mild tenderness over the patella. No deformity, normal flexion and extension, no varus or valgus laxity. Neurovascularly intact. Knee x-ray shows prosthesis intact with no evidence of fracture. Patient is able to ambulate. Was given a dose of [place] here and states he has some at home if he needs it. He was discharged in stable condition. Differential: Knee contusion versus fracture This patient was seen with a PA/TEAM SUPERVISOR Individually assessed they patient including history and physical. I have reviewed everything on the chart that is available and agree with the documentation provided by the PA/TEAM SUPERVISOR including discussion about the assessment, treatment plan, discussion, and return precautions. 76-year-old male with mechanical fall and contusion to the right knee. He is ambulatory. X-rays were obtained and are negative for acute fracture my interpretation of the right knee. Patient has [place] at home. He is discharged home in stable condition. Radiography Diagnostic Testing: Clinical Impression(s) from Imaging Studies Knee X-Ray 05/22/22 16:00 IMPRESSION: Total knee prosthesis in anatomic alignment. There are no osseous abnormalities. Electronically Signed: Foster Delatorre MD at 16:30 EDT , Discharge Plan Triage Chief Complaint: Fall ED Midlevel Provider: Reyna Pathak ED Provider: Mark Kapoor Dx/Rx/DC Orders Clinical Impression: Contusion of knee, right Instructions: ED Contusion, Lower Extremity Prescriptions: No Action triamterene-hydrochlorothiazid 37.5-25 mg tablet 1 tab PO DAILY Tresiba FlexTouch U-200 200 unit/mL (3 mL) insulin pen 20 unit SC DAILY hydrocodone-acetaminophen 10-325 mg tablet 1 tab PO 4X/DAY finasteride 5 mg tablet 1 tab PO DAILY levothyroxine 25 mcg tablet 25 mcg PO DAILY minocycline 100 mg tablet 100 mg PO BID PRN (Reason: Rash/Topical Irritation) cholecalciferol (vitamin D3) 125 mcg (5,000 unit) capsule 125 mcg PO DAILY furosemide 40 mg tablet 40 - 80 mg PO DAILY Label Comments: WATER PILL Eliquis 5 mg tablet 5 mg PO BID enalapril maleate 10 MG tablet 10 mg PO DAILY Label Comments: BLOOD PRESSURE omeprazole 40 MG capsule 40 mg PO DAILY Label Comments: ACID REFLUX gabapentin 800 MG tablet 800 mg PO TIDCM Label Comments: NERVE PAIN cyanocobalamin (vitamin B-12) 1,000 MCG/ML solution 100 mcg IM Q30D PRN (Reason: Fatigue) Label Comments: SUPPLEMENT insulin regular human 100 UNIT/ML solution 70 unit SC TIDCM Label Comments: DIABETES carisoprodol 350 mg tablet 350 mg PO TID PRN (Reason: Muscle Spasm) Label Comments: MUSCLE RELAXANT etodolac 400 mg tablet extended release 24 hr 400 mg PO BID Label Comments: PAIN/INFLAMMATION atorvastatin 80 MG tablet 80 mg PO QHS Label Comments: CHOLESTEROL aspirin 81 MG tablet,chewable 81 mg PO DAILY@0800 Label Comments: BLOOD THINNER/HEART HEALTH lqunztuk-qko-LY-lycopen-lutein 1 EACH tablet 1 each PO DAILY metoprolol tartrate 25 mg tablet 25 mg PO BID Qty: 60 11RF Primary Care Provider: Angelia Conway Referrals: Angelia Conway DO [Primary Care Provider] - Activity Restrictions/Additional Instructions: Your x-ray shows your prosthesis is intact and there is no fracture. Ice the area and take dwzf-bye-dqmhtgl pain medication as needed. Disposition Disposition: Home, Self Care Discharge Date/Time: 05/22/22 17:09
[2022-05-22] MEDS: HYDROcodone Bitartrate/Apap 5/325 Tablet PO (15:52)
--- NOTE | 2022-05-22 16:00 | RAD_ITS ---
EXAM: XR RIGHT KNEE, 1 OR 2 VIEWS CLINICAL INDICATION: pain TECHNIQUE: Frontal and/or lateral views of the right knee. This report was created using [employer] report generation technology. COMPARISON: 05/19/2018 FINDINGS: BONES/JOINTS: There is a total knee prosthesis in anatomic alignment. No acute fracture. Preservation of the joint space. No sclerotic or destructive changes observed. SOFT TISSUES: Unremarkable. No soft tissue swelling or gas. No radiopaque foreign body. RAD/Knee 1 or 2 Views IMPRESSION: Total knee prosthesis in anatomic alignment. There are no osseous abnormalities. Electronically Signed: Foster Delatorre MD at 16:30 EDT ,
[2022-05-22 17:08] VITALS: BP 131/68; PULSE 72; RESP 15; O2SAT 98
== END 2022-05-22 17:09 | disposition home or self-care (01) ==
PROVIDERS: Emergency Provider Student in an Organized Health Care Education/Training Program; PCP Internal Medicine; Visit Provider Student in an Organized Health Care Education/Training Program
DX: S80.01XA Contusion of right knee, initial encounter (principal); I48.0 Paroxysmal atrial fibrillation; E11.9 Type 2 diabetes mellitus without complications; Z79.4 Long term (current) use of insulin; E78.5 Hyperlipidemia, unspecified; Z87.891 Personal history of nicotine dependence; I10 Essential (primary) hypertension; M54.9 Dorsalgia, unspecified; W18.30XA Fall on same level, unspecified, initial encounter; Y92.238 Other place in hospital as the place of occurrence of the external cause; Z96.651 Presence of right artificial knee joint; Z79.899 Other long term (current) drug therapy; K21.9 Gastro-esophageal reflux disease without esophagitis; Z79.82 Long term (current) use of aspirin; M19.90 Unspecified osteoarthritis, unspecified site; Z79.891 Long term (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 of opiate analgesic; E03.9 Hypothyroidism, unspecified; Z79.01 Long term (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 of anticoagulants
CPT/HCPCS: 73560; 99282

== ENCOUNTER → 2022-07-06 | Outpatient (CLI) | payer MEDICARE, OTHER, SELFPAY ==
--- NOTE | 2022-07-06 16:06 | RAD_ITS ---
STUDY: X-RAY - LEFT KNEE REASON FOR EXAM: Male, 76 years old. PAIN TECHNIQUE: 3 view(s) of the knee. COMPARISON: None. FINDINGS: Normal visualized distal femur. Normal visualized proximal tibia and fibula. Normal proximal tibiofibular articulation. Narrowed medial femorotibial compartment. Normal lateral femorotibial compartment. Normal patellofemoral articulation. Minor spurring of the upper pole of the patella. The soft tissue structures are unremarkable. RAD/Knee 3 Views IMPRESSION: Degenerative changes. No acute fracture or other significant bony pathology. Electronically Signed: Lino Shin MD at 22:01 EDT ,
== END | disposition home or self-care (01) ==
LOC: MTRAD 16:05
PROVIDERS: PCP Internal Medicine; Referring Provider Internal Medicine; Visit Provider Internal Medicine
DX: M25.562 Pain in left knee (principal)
CPT/HCPCS: 73562

== ENCOUNTER → 2022-07-20 | Outpatient (CLI) | payer MEDICARE, OTHER, SELFPAY ==
[2022-07-20 17:44] LABS: Absolute Lymphocyte Count 3.17 X10^3/uL (0.83-4.51); Absolute Neutrophil Count 7.3 X10^3/uL (2.0-7.7); Basophil# 0.05 X10^3/uL; Basophil% 0.4 % (0-1); Eosinophil# 0.16 X10^3/uL; Eosinophils% 1.4 % (0-5); Hemoglobin 13.1 g/dL (13.0-16.5); Lymphocyte # 3.17 X10^3/ul (0.83-4.51); Lymphocyte % 27.5 % (19-41); Mean Corp Hgb Conc 32.8 g/dL (32-36); Mean Corpuscular Volume 97.6 fL (80-94); Mean Platelet Vol. 11.9 fl (6.2-12.0); Monocyte# 0.84 X10^3/uL; Monocyte% 7.3 % (0-10); NRBC Flagged by Analyzer 0 % (0-5); Neutrophil # 7.28 X10^3/uL (2.7-7.7); Neutrophil % 63.1 % (47-70); Platelet Count 213 K/mm3 (150-450); RBC Distribution Width CV 12.7 % (11.6-14.6); RBC Distribution Width SD 45.4 fl (35.1-43.9); White Blood Count 11.5 K/mm3 (4.4-11.0)
[2022-07-20 18:55] LABS: AST(SGOT) 19 U/L (15-37); Alanine Aminotransfer ALT/SGPT 25 U/L (16-61); Albumin, Serum 3.4 g/dL (3.2-5.0); Alkaline Phosphatase 104 U/L (45-117); Amylase 30 U/L (25-115); Anion Gap 5 (5-15); BUN 23 mg/dL (7-18); BUN/Creat Ratio 17.2 RATIO (10-20); CRP 6.86 mg/L (0.0-3.0); Calcium,Total 9.7 mg/dL (8.5-10.1); Chloride 103 mmol/L (98-107); Creatinine, Serum 1.34 mg/dL (0.70-1.30); EST Glomerular Filtration Rate 55 mL/min (>60); Est Glom Filt Rate - Afr Amer 67 mL/min (>60); Globulin 3.4 g/dL (2.2-4.2); Glucose 168 mg/dL (74-106); Lipase 16 U/L (13-75); Potassium 4.6 mmol/L (3.5-5.1); Protein, Total 6.8 g/dL (6.4-8.2); Sodium Level 138 mmol/L (136-145)
== END | disposition home or self-care (01) ==
LOC: MTLAB 15:34
PROVIDERS: PCP Internal Medicine; Referring Provider Nurse Practitioner Family; Visit Provider Nurse Practitioner Family
DX: R10.32 Left lower quadrant pain (principal)
CPT/HCPCS: 36415; 80053; 82150; 83690; 85025; 86140

== ENCOUNTER → 2022-07-21 | Outpatient (CLI) | payer MEDICARE, OTHER, SELFPAY ==
--- NOTE | 2022-07-21 08:55 | CT_ITS ---
STUDY: CT ABDOMEN AND PELVIS WITH CONTRAST REASON FOR EXAM: Male, 76 years old. Lower abd pain bilateral with left flank pain RADIATION DOSAGE (If Supplied By Facility): CTDIvol = ( 21.6 ) mGy, DLP = ( 1931.07 ) mGycm TECHNIQUE: Transaxial images were obtained from the dome of the diaphragm to the symphysis pubis with oral contrast. Oral and amp;amp; IV Readi-CAT and amp;amp; 100mL Isovue-370 was administered. Sagittal and coronal images were reconstructed. Individualized dose optimization techniques were used for this CT. COMPARISON: None. FINDINGS: Mild degree of increased linear markings at the lung bases suggestive of atelectasis. Coronary artery calcification. There is a 2.5 cm x 3.6 cm cystic structure along the right side of the pericardium. This most likely represents a small pericardial cyst. There is decreased attenuation of the liver consistent with steatosis. Mildly distended gallbladder. Findings suggestive of blood layering gallstones along the dependent portion. Normal spleen. There is diffuse atrophy of the pancreas. Normal bilateral adrenal glands. Small bilateral renal cysts. There is a small hiatal hernia. Normal small intestine. There are scattered colonic diverticula consistent with diverticulosis. The appendix is visualized and appears normal. There is diffuse atherosclerotic calcification of the abdominal aorta, without a demonstrated aneurysm. Normal inferior vena cava. Normal retroperitoneum. Mildly distended urinary bladder. Tiny diverticulum is seen along the right side of the bladder inferiorly. Heterogeneous enlargement of the prostate. The prostate measures 5.5 cm x 4.8 cm. This causes indentation of the bladder base. Normal abdominal wall. There are diffuse degenerative changes of the visualized lumbar spine. Loss of the normal lumbar lordosis. Prior fusion at the L2-L3, L3-L4 and L4-L5 levels. CT/Abdomen/Pelvis WITH Contrast IMPRESSION: Findings suggestive of a small right pericardial cyst. Diffuse fatty infiltration of the liver. Mild distention of the gallbladder with the findings suggestive of layering gallstones. Small bilateral renal cysts. Mild bladder wall thickening with diffuse enlargement of the prostate. Indentation of the bladder base. Electronically Signed: Marcus Spears MD at 10:26 EDT ,
== END | disposition home or self-care (01) ==
LOC: CT 08:54
PROVIDERS: PCP Internal Medicine; Referring Provider Nurse Practitioner Family; Visit Provider Nurse Practitioner Family
DX: R10.32 Left lower quadrant pain (principal)
CPT/HCPCS: 74177; Q9967

== ENCOUNTER 2022-07-22 07:30 | Outpatient (CLI) | payer MEDICARE, OTHER, SELFPAY ==
--- NOTE | 2022-07-22 07:31 | US_ITS ---
STUDY: ABDOMINAL ULTRASOUND - RIGHT UPPER QUADRANT REASON FOR VISIT: Male, 76 years old Lower abdominal pain of unknown etiology TECHNIQUE: Ultrasound evaluation of the right upper quadrant was performed with real-time and static alston-scale imaging. TECHNICAL QUALITY: Adequate. COMPARISON: Comparison is made with prior CT scan of the abdomen and pelvis dated July 21, 2022. FINDINGS: Liver: The liver measures 16.9 cm. There is increased echogenicity consistent with fatty infiltration. The bile ducts are within normal limits. There is hepatic color flow. The direction of portal flow is hepatopetal. There is no demonstrated mass lesion. Gallbladder: There is a distended gallbladder. The gallbladder wall measures 2 mm. There is a negative sonographic Prather''s sign. There is no pericholecystic fluid. There are no gallstones. Sludge is seen within the gallbladder lumen. Common Bile Duct (C.B.D.): The common bile duct measures 5 mm. Pancreas: Normal size of the head, body of the pancreas. The tail portion is obscured due to overlying bowel gas. There is normal echogenicity of the pancreas. There is no demonstrated pancreatic mass or cyst. Right Kidney: Normal size of the right kidney. The right kidney measures 10.2 cm x 5.2 cm x 6.1 cm. Normal renal cortex. The right cortex measures 1.3 cm. There is a 1.3 cm x 1.2 cm x 1.5 cm cyst in the right kidney. There is no right hydronephrosis. US/Abdomen Limited IMPRESSION: Fatty infiltration of the liver. Sludge is seen in the gallbladder lumen. Small right renal cyst. Electronically Signed: Marcus Spears MD at 8:37 EDT ,
== END 2022-07-22 23:59 | disposition home or self-care (01) ==
PROVIDERS: PCP Internal Medicine; Referring Provider Nurse Practitioner Family; Visit Provider Nurse Practitioner Family
DX: R10.30 Lower abdominal pain, unspecified (principal); D46.0 Refractory anemia without ring sideroblasts, so stated; E11.621 Type 2 diabetes mellitus with foot ulcer; E11.51 Type 2 diabetes mellitus with diabetic peripheral angiopathy without gangrene; L97.412 Non-pressure chronic ulcer of right heel and midfoot with fat layer exposed; L97.422 Non-pressure chronic ulcer of left heel and midfoot with fat layer exposed; E11.42 Type 2 diabetes mellitus with diabetic polyneuropathy; I48.0 Paroxysmal atrial fibrillation; N28.1 Cyst of kidney, acquired; R60.0 Localized edema; G89.29 Other chronic pain; G47.00 Insomnia, unspecified; M54.9 Dorsalgia, unspecified; I10 Essential (primary) hypertension; E78.5 Hyperlipidemia, unspecified; E03.9 Hypothyroidism, unspecified; I87.2 Venous insufficiency (chronic) (peripheral); I89.0 Lymphedema, not elsewhere classified; Z79.01 Long term (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 of anticoagulants; Z79.890 Hormone replacement therapy; Z79.899 Other long term (current) drug therapy; Z87.891 Personal history of nicotine dependence
CPT/HCPCS: 11042; 29581; 76705

== ENCOUNTER 2022-07-29 09:45 | Outpatient (RCR) | payer MEDICARE, OTHER, SELFPAY ==
[2022-07-15 08:17] VITALS: BP 157/83; PULSE 68; RESP 16; TEMP 36.1; BMI 37.3
--- NOTE | 2022-07-15 08:51 | PCM.WC.HP ---
History of Present Illness Date of Service: 07/15/22 Chief Complaint: Right foot ulcer History of Wound: This 76-year-old male with significant PMHx of diabetes type II with peripheral polyneuropathy, atrial fibrillation, hyperlipidemia, HTN, blindness, insomnia, history of acute renal failure, retinitis pigmentosa, Kaposi sarcoma right foot, and history of venous insufficiency with multiple procedural interventions was seen for right and left foot ulcer. Last seen by Dr. Moore, vascular specialist in 2020. Patient has not gone back for continued evaluation. Does have confirmed venous insufficiency of the great saphenous vein bilateral with bilateral lower extremity edema and lymphedema. He denies N/V/F/chills. He denies redness or odor to the foot bilateral. He is with his today. states that he had been following with Dr. Natalia Hernandez, [place].P.Aura in office following dispense of Sigvaris compression wrap and bilateral AFO braces made by [employer]. states that these braces have caused rubbing on the inside of the heel of both feet that had formed a blister and eventually broke open into a wound. States that they have not healed in the last month and Dr. Hernandez referred them to the wound care center for further evaluation. [facility] Medical History Acute renal failure Chronic back pain Essential hypertension GERD (gastroesophageal reflux disease) Hyperlipidemia Hypothyroidism Insomnia Legal blindness Osteoarthritis Paroxysmal atrial fibrillation Renal insufficiency Retinitis pigmentosa Sepsis Type II diabetes mellitus UTI (urinary tract infection) Home Medications cyanocobalamin (vitamin B-12) 1,000 mcg/mL injection solution 100 mcg IM Q30D PRN Fatigue 08/21/13 [History Last Taken Unknown] enalapril maleate 10 mg tablet 10 mg PO DAILY 08/21/13 [History Last Taken 04/16/20] gabapentin 800 mg tablet 800 mg PO 4XD 08/21/13 [History Last Taken 10/25/14 04:00] insulin regular human 100 unit/mL injection solution 30 unit subcut TIDCM 08/21/13 [History Last Taken Unknown] omeprazole 40 mg capsule,delayed release 40 mg PO DAILY 08/21/13 [History Last Taken 10/25/14 04:00] atorvastatin 80 mg tablet 80 mg PO QHS 07/25/14 [History Last Taken Unknown] carisoprodol 350 mg tablet 350 mg PO TID PRN Muscle Spasm 09/13/18 [History Last Taken Unknown] finasteride 5 mg tablet 1 tab PO DAILY 01/23/20 [History Last Taken Unknown] hydrocodone 10 mg-acetaminophen 325 mg tablet 1 tab PO 4X/DAY 01/23/20 [History Last Taken Unknown] levothyroxine 25 mcg tablet 25 mcg PO DAILY 01/23/20 [History Last Taken 04/16/20] cholecalciferol (vitamin D3) 125 mcg (5,000 unit) capsule 125 mcg PO DAILY 04/11/20 [History Last Taken Unknown] furosemide 40 mg tablet 40 - 80 mg PO DAILY 04/11/20 [History Last Taken Unknown] acbrdmry-ofs-vxipt acid 300 mcg-lycopene 600 mcg-lutein 300 mcg tablet 1 each PO DAILY 06/18/20 [History Last Taken Unknown] apixaban 5 mg tablet (Eliquis) 5 mg PO BID 07/02/20 [History Last Taken Unknown] ferrous sulfate 325 mg (65 mg iron) tablet 325 mg PO DAILY 07/15/22 [History Last Taken Unknown] Allergy/AdvReac Type Severity Reaction Status Date / Time Sulfa (Sulfonamide Allergy Shortness Verified 07/15/22 08:28 Antibiotics) of breath Gadolinium-MRI Contrast AdvReac Vomiting Verified 07/15/22 08:28 Medium [MRI] Family History Sister Cancer ovarian Mother CVA (cerebral vascular accident) Diabetes Father Cancer malignant melanona, bladder Brother Myocardial infarction Brother Myocardial infarction Brother Lung cancer Surgical History History of arthroscopy of knee History of carpal tunnel surgery of left wrist History of cataract extraction History of discectomy History of elbow surgery History of left heart catheterization (04/16/20) History of spinal fusion History of surgery on wrist History of thumb surgery History of transurethral resection of prostate History of vein stripping Social History household members: spouse and other details: nephew Smoking Status: Former smoker Tobacco: How many years used: 10 how long ago did patient quit smokin years ago alcohol intake: never substance use type: does not use caffeine: Yes Type: carbonated beverages Number of servings: 5 what type of physical activity do you participate in: none seatbelt use: always do you feel safe at home: Yes ROS Constitutional Constitutional: Denies anorexia, chills, fever(s) or night sweats Eyes Eyes: Denies blurry vision, change in vision or double vision ENT HEENT: Denies dysphagia, nasal congestion or sore throat Cardiovascular Cardiovascular: Denies chest pain, claudication or palpitations Respiratory/Chest Respiratory/Chest: Denies cough, shortness of breath at rest or wheezing Gastrointestinal Gastrointestinal: Denies abdominal pain, constipation, diarrhea, nausea or vomiting Genitourinary Genitourinary: Denies dysuria, hematuria or urinary frequency Musculoskeletal Musculoskeletal: Denies joint pain, joint stiffness or joint swelling Integumentary Integumentary: Denies lesions, pruritus or rash Neurologic Neurologic: Denies dizziness, numbness or seizures Endocrine Endocrinology: Denies cold intolerance or heat intolerance Hematologic/Lymphatic Hematologic/Lymphatic: Denies easy bleeding or easy bruising Vital Signs Vital Signs Vital Signs: 07/15/22 08:17 Temperature 96.9 F L Temperature Source Temporal Pulse Rate 68 Respiratory Rate 16 Blood Pressure 157/83 H Blood Pressure Mean 107 Blood Pressure Source Monitor Blood Pressure Position Sitting Blood Pressure Location Left Arm Oxygen Delivery Method Room Air Weight Weight: 124.738 kg Body Mass Index (BMI) 37.3 Physical Exam Const alert, oriented x3 and no apparent distress General Appearance: cooperative HEENT normocephalic Eyes General Eye: normal appearance of both eyes Neck General: normal visual inspection Lymph Lymphatic: no lymphadenopathy noted Resp normal respiratory effort Cardio regular rate and regular rhythm Extremity no calf tenderness Extremity Narrative: DP and PT pulses nonpalpable bilateral. Capillary fill time is sluggish to the digits at 6 seconds bilateral. Absent hair growth is noted bilateral. Temperature gradient normal bilaterally. Musculoskeletal: There is some weakness in dorsiflexion of the right foot noted versus left foot. Patient ambulates in bilateral AFO braces. There is hammertoe deformity noted to be semiflexible to bilateral digits 2 through 5. Decreased range of motion of the ankle joint in dorsiflexion with knee extended without pain or crepitus. Decreased range of motion of the first MTPJ bilateral without pain or crepitus. Dermatological: There is bilateral edema noted to the lower extremities with venous stasis dermatitis to the anterior lower extremities. There is also lymphedema and skin changes noted bilateral. There are 2 superficial wounds noted to the lower extremities, 1 at the medial calcaneus right foot and 1 at medial calcaneus left foot. Skin no rashes or lesions noted, skin turgor normal and no jaundice General Skin Exam: venous stasis and dermatitis Wound Narrative: Left lower extremity: Superficial wound secondary to previous blister at the medial calcaneus below the level of the malleoli wound margins demonstrate friable skin and there is evidence of some epithelialization. No purulent drainage, no erythema, no malodor, no palpable fluctuance/bogginess, no visible abscess, no lymphangitic streaking. Right lower extremity: Ulceration noted to the medial aspect of the calcaneus below the level of the malleoli. There is some macerated and fibrotic tissue at the wound bed and margin. No purulent drainage, no erythema, no malodor, no palpable fluctuance/bogginess, no visible abscess, no lymphangitic streaking. Neuro moves all extremities Neuro Narrative: Decreased protective sensation to bilateral foot consistent with peripheral polyneuropathy Debridement Note Debridement Note Wound debrided: Right medial heel Laterality: Right Wound Grade/Stage: Mancilla stage I Type of Debridement: Excisional debridement Anesthesia Used: 5% Lidocaine Gel Depth: Down to and including healthy tissue and in the subcutaneous layer Percentage of wound debrided: 100 Instrument Used: 3mm curette Tissue Removed: Fibrous, devitalized subcutaneous, biofilm, slough Severity: Fat Layer Exposed Amount of bleeding with debridement: Mild Bleeding Controlled with: Compression and gauze Patient tolerated procedure: Patient tolerated procedure well Post-Debridement Measurements and Additional Note: Post-Debridement Measurements/Treatment - Nurse 1 - General Ulcer Assessment Start: 07/15/22 08:17 Freq: Status: Active Protocol: JORGE Activity Type Activity Date Activity User E-sign Co-sign Detail Recorded Client Recorded Date Recorded By Document 07/15/22 08:17 [facility] Desktop 07/15/22 08:26 [facility] 07/15/22 08:17 - Today's Visit Information Type of service Initial Visit Arrival Mode Ambulatory,Cane Transfer Assistance Other Transfer Assist (Other) standby d/t blindness Accompanied by Patient Identification Verified (Name & Yes ) Patient Requires Transmission-Based No Precautions Height and Weight Height 6 ft Weight 124.738 kg Weight in Pounds 275.0 lbs Weight Measurement Method Estimated by Patient Body Mass Index (BMI) 37.3 BMI Classification Obese BSA - [place] 2.44 Vital Signs Temperature (97.8 F-99.1 F) 96.9 F L Temperature Source Temporal Pulse Rate (60-100) 68 Pulse Location Monitor Respiratory Rate (12-18) 16 Respiratory rate source Observation Oxygen Delivery Method Room Air Blood Pressure (90/60-120/80) 157/83 H Blood Pressure Mean 107 Source Monitor Position Sitting Blood Pressure Location Left Arm History Since Last Visit- (Skip if this is Patient's initial visit) Left Footwear Regular Shoe Right Footwear Regular Shoe Pain Scale: 0-10 Numeric Is Patient Pain Free? Yes Lower Extremity Assessment/ Foot Assessment/ Toe Nail Assessment Right -Posterior Tibial Doppler Multiphasic -Dorsalis Pedis Doppler Multiphasic -Extremity Color Hyperpigmented, Hemosiderin -Hair Growth on Legs No -Hair Growth on Toes No -Thick Yes -Discolored Yes -Deformed No -Improper Length & Hygeine No Left -Posterior Tibial Doppler Multiphasic -Dorsalis Pedis Doppler Multiphasic -Extremity Color Hyperpigmented, Hemosiderin -Hair Growth on Legs No -Hair Growth on Toes No -Thick Yes -Discolored Yes -Deformed No -Improper Length & Hygeine No Communication Assessment Preferred language Egyptian Mutuel Clerk Required No Able to Read No: BLIND OU Right Hearing Abillity Hard of Hearing Left Hearing Abillity Hard of Hearing Visual Assistive Devices Legally Blind Teaching Assessment Preferences Verbal Barriers to Learning Hearing Impairment, Vision Impairment Readiness To Learn Good Willingness to Engage in Self Management High Activies Readiness to Engage in Self Management High Activities Anxiety Level Calm Cooperation Cooperative Perception Coherent Interest in Health Problem Asks Questions Education Importance Acknowledges Need Does Patient Smoke tobacco or other No substances Is Patient Diabetic Yes Teaching: Wound Center *Welcome to the Wound Center -Person Taught Patient, Significant Other -Response to teaching Verbalize understanding Welcome to the Wound Care Center English BOYLE - Nurse 1 - General Ulcer Measurement Start: 07/15/22 08:17 Freq: Status: Active Protocol: Activity Type Activity Date Activity User E-sign Co-sign Detail Recorded Client Recorded Date Recorded By Document 07/15/22 08:17 [facility] Desktop 07/15/22 08:26 [facility] 07/15/22 08:17 Wound Center Nurse 1 #3- L MED HEEL -Combined with other wound No -Current Size (cm) - Length 0.3 -Current Size (cm) - Width 0.8 -Current Size (cm) - Depth 0.1 -Total Square Cm 0.24 -Date of Last Picture (Recall this 07/15/22 field) -Photo Taken Yes -Epithelialization None Present -Tunneling No -Undermining/Tunneling No -Circular Undermining No -Exudate Amt Medium -Exudate Type Serous -Wound Margin Flat & Intact -Granulation Amt Medium (34-66%) -Granulation Quality [place] -Slough/Fibrin Yes -Necrosis Amt Medium (34-66%) -Necrotic Tissue Type Adherent Slough -Texture (Hannah-wound Skin Appearance) Assessed, Scarring -Moisture (Hannah-wound Skin Appearance) Assessed, Maceration -Color (Hannah-wound Skin Appearance) Assessed -Temperature (Hannah-wound Skin No Abnormality Appearance) (Pt Warm) -Tenderness on Palpation (Hannah-wound No Skin Appearance) -Ulcer Cleansing Rinsed/ Irrigated with Saline -Foul Odor after Cleansing No -Anesthetic Used 5% Lidocaine Gel #2- R MED HEEL -Combined with other wound No -Current Size (cm) - Length 0.9 -Current Size (cm) - Width 2.2 -Current Size (cm) - Depth 0.1 -Total Square Cm 1.98 -Date of Last Picture (Recall this 07/15/22 field) -Photo Taken Yes -Epithelialization None Present -Tunneling No -Undermining/Tunneling No -Circular Undermining No -Exudate Amt Medium -Exudate Type Serous -Wound Margin Flat & Intact -Granulation Amt Medium (34-66%) -Granulation Quality [place] -Slough/Fibrin Yes -Necrosis Amt Medium (34-66%) -Necrotic Tissue Type Adherent Slough -Texture (Hannah-wound Skin Appearance) Assessed, Scarring -Moisture (Hannah-wound Skin Appearance) Assessed, Maceration -Color (Hannah-wound Skin Appearance) Assessed -Temperature (Hannah-wound Skin No Abnormality Appearance) (Pt Warm) -Tenderness on Palpation (Hannah-wound No Skin Appearance) -Ulcer Cleansing Rinsed/ Irrigated with Saline -Foul Odor after Cleansing No -Anesthetic Used 5% Lidocaine Gel Lower Limb Edema Present Yes Right Calf (cm) 53 Right Ankle (cm) 31.7 Left Calf (cm) 52 Left Ankle (cm) 31.7 Additional Wound Wound debrided: Left medial heel Laterality: Left Wound Grade/Stage: Mancilla stage I Type of Debridement: Excisional debridement Anesthesia Used: 5% Lidocaine Gel Depth: Down to and including healthy tissue and in the subcutaneous layer Percentage of wound debrided: 100 Instrument Used: 3mm curette Tissue Removed: Fibrous, devitalized subcutaneous, biofilm, slough Severity: Fat Layer Exposed Amount of bleeding with debridement: Mild Bleeding Controlled with: Compression and gauze Patient tolerated procedure: Patient tolerated procedure well Assessment/Plan Assessment/Plan (1) Other specified peripheral vascular diseases: CODE(S): I73.89 - Other specified peripheral vascular diseases (2) Type 2 diabetes mellitus with diabetic polyneuropathy: CODE(S): E11.42 - Type 2 diabetes mellitus with diabetic polyneuropathy (3) Venous insufficiency: CODE(S): I87.2 - Venous insufficiency (chronic) (peripheral) (4) Delayed wound healing: CODE(S): T14.8XXD - Other injury of unspecified body region, subsequent encounter (5) Essential hypertension: CODE(S): I10 - Essential (primary) hypertension (6) Hyperlipidemia: CODE(S): E78.5 - Hyperlipidemia, unspecified QUALIFIERS: Hyperlipidemia type: unspecified Qualified Code(s): E78.5 - Hyperlipidemia, unspecified (7) Non-pressure chronic ulcer of other part of left foot with fat layer exposed: CODE(S): L97.522 - Non-pressure chronic ulcer of other part of left foot with fat layer exposed (8) Non-pressure chronic ulcer of other part of right foot with fat layer exposed: CODE(S): L97.512 - Non-pressure chronic ulcer of other part of right foot with fat layer exposed (9) Bilateral edema of lower extremity: CODE(S): R60.0 - Localized edema PLAN: Plan Patient seen and evaluated Reviewed previous vascular studies performed in 2020 which demonstrated great saphenous vein incompetency bilateral. Discussed updating vascular studies both LEAS and venous. Referral to vascular specialist, Dr. Lyman. Patient does have nonpalpable DP and PT pulses with sluggish capillary fill time to the digits. He does have triphasic Doppler bilateral. He is noted to have ulceration to the medial aspect of the right heel and the medial aspect of the left heel. No signs of infection. States that he believes the AFO braces have rubbed the inside of his heel creating the wound. I did inspect his bilateral AFOs. I however feel his excessive swelling has created the issue of rubbing in the brace. Discussed recommending continued elevation of lower extremities at all times of rest and compression stockings to be worn daily. If brace continues to rub following decrease of his edema it is recommended he return to [facility] for modification of the brace with offloading padding applied to the medial wall. Ulceration to the left and right heel were debrided as noted in the clinical panel above. Ulceration left medial heel measures 0.6 cm x 0.4 cm x 0.1 cm. No signs of infection. Right medial heel ulcer measures 1.4 cm x 2.5 cm x 0.1 cm. No signs of infection. Catherine applied to bilateral ulcer site with dry sterile dressing. 3M compression wrap applied to bilateral lower extremity. He was instructed to not get the dressings wet. Discussed signs and symptoms of infection today. Discussed if he notices any redness about the wound site moving up the leg, any purulent drainage, increasing foul odor, or if he experiences fever greater than 101 degree, nausea, vomiting, chills that he is to report to the ED as these are signs of a progressing infection. He voices understanding of this. Discussed proper diabetic diet to ensure adequate control of blood sugars to aid wound healing. Last A1c reported at 6.8%. Patient reports blood sugars upon checks typically run in the 130's. The following work up and care recommendations were made: Dressing: Catherine and 3M compression wrap Wash: Do not get wet Tissue growth optimization: Catherine Offload: 3M compression wrap and elevation of lower extremities at all times of rest Vascular: Nonpalpable DP and PT pulses with sluggish capillary fill time. Referral to Dr. Lyman, vascular specialist was made. Recommend updating arterial and venous studies, as previous studies last performed 2020. Edema: 3M compression wrap and elevation of lower extremities at all times of rest Infection: No signs of infection Pain: May take Tylenol extra strength as needed. Host factors: DM type II with peripheral polyneuropathy, chronic venous insufficiency bilateral I answered all the patient's questions. To return to the wound healing center in 1 week or call sooner if the patient has any questions or concerns.
--- NOTE | 2022-07-22 09:58 | PCM.WC.PN ---
History of Present Illness Date of Service: 07/22/22 Chief Complaint: Right foot ulcer History of Wound: This 76-year-old male with significant PMHx of diabetes type II with peripheral polyneuropathy, atrial fibrillation, hyperlipidemia, HTN, blindness, insomnia, history of acute renal failure, retinitis pigmentosa, Kaposi sarcoma right foot, and history of venous insufficiency with multiple procedural interventions was seen for right and left foot ulcer. Last seen by Dr. Moore, vascular specialist in 2020. Patient has not gone back for continued evaluation. Does have confirmed venous insufficiency of the great saphenous vein bilateral with bilateral lower extremity edema and lymphedema. He denies N/V/F/chills. He denies redness or odor to the foot bilateral. He is with his today. states that he had been following with Orly Abbasi.P.Aura in office following dispense of Sigvaris compression wrap and bilateral AFO braces made by [employer]. states that these braces have caused rubbing on the inside of the heel of both feet that had formed a blister and eventually broke open into a wound. States that they have not healed in the last month and Dr. Hernandez referred them to the wound care center for further evaluation. Subjective Subjective This is a 76-year-old male who presents to the wound care center today for follow-up of bilateral medial heel wounds. He has kept his compression dressings clean, dry, and intact to the bilateral lower leg. He denies any constitutional symptoms today. Has no further complaints today. Objective Data Objective Data Vital Signs: Vital Signs Temp Pulse Resp BP O2 Del Method 96.9 F L 68 16 157/83 H Room Air 07/15/22 08:17 07/15/22 08:17 07/15/22 08:17 07/15/22 08:17 07/15/22 08:17 Oxygen Delivery Method Room Air Weight: 124.738 kg Body Mass Index (BMI) 37.3 Physical Exam Const alert, oriented x3 and no apparent distress General Appearance: cooperative HEENT normocephalic Eyes General Eye: normal appearance of both eyes Neck General: normal visual inspection Lymph Lymphatic: no lymphadenopathy noted Resp normal respiratory effort Cardio regular rate and regular rhythm Extremity no calf tenderness Extremity Narrative: DP and PT pulses nonpalpable bilateral. Capillary fill time is sluggish to the digits at 6 seconds bilateral. Absent hair growth is noted bilateral. Temperature gradient normal bilaterally. Musculoskeletal: There is some weakness in dorsiflexion of the right foot noted versus left foot. Patient ambulates in bilateral AFO braces. There is hammertoe deformity noted to be semiflexible to bilateral digits 2 through 5. Decreased range of motion of the ankle joint in dorsiflexion with knee extended without pain or crepitus. Decreased range of motion of the first MTPJ bilateral without pain or crepitus. Dermatological: There is bilateral edema noted to the lower extremities with venous stasis dermatitis to the anterior lower extremities. There is also lymphedema and skin changes noted bilateral. There are 2 superficial wounds noted to the lower extremities, 1 at the medial calcaneus right foot and 1 at medial calcaneus left foot. Skin no rashes or lesions noted, skin turgor normal and no jaundice General Skin Exam: venous stasis and dermatitis Wound Narrative: Left lower extremity: Superficial wound secondary to previous blister at the medial calcaneus below the level of the malleoli wound margins demonstrate friable skin and there is evidence of some epithelialization. No purulent drainage, no erythema, no malodor, no palpable fluctuance/bogginess, no visible abscess, no lymphangitic streaking. Right lower extremity: Ulceration noted to the medial aspect of the calcaneus below the level of the malleoli. No purulent drainage, no erythema, no malodor, no palpable fluctuance/bogginess, no visible abscess, no lymphangitic streaking. Neuro moves all extremities Neuro Narrative: Decreased protective sensation to bilateral foot consistent with peripheral polyneuropathy Debridement Note Debridement Note Wound debrided: Right medial heel Laterality: Right Wound Grade/Stage: Mancilla stage I Type of Debridement: Excisional debridement Anesthesia Used: 5% Lidocaine Gel Depth: Down to and including healthy tissue and in the subcutaneous layer Percentage of wound debrided: 100 Instrument Used: 3mm curette Tissue Removed: Fibrous, devitalized subcutaneous, biofilm, slough Severity: Fat Layer Exposed Amount of bleeding with debridement: Mild Bleeding Controlled with: Compression and gauze Patient tolerated procedure: Patient tolerated procedure well Post-Debridement Measurements and Additional Note: Post-Debridement Measurements/Treatment WC - Nurse 1 - General Ulcer Assessment Start: 07/15/22 08:17 Freq: Status: Active Protocol: [email or web address] Activity Type Activity Date Activity User E-sign Co-sign Detail Recorded Client Recorded Date Recorded By Document 07/15/22 08:17 [facility] Desktop 07/15/22 08:26 [facility] 07/15/22 08:17 - Today's Visit Information Type of service Initial Visit Arrival Mode Ambulatory,Cane Transfer Assistance Other Transfer Assist (Other) standby d/t blindness Accompanied by Patient Identification Verified (Name & Yes ) Patient Requires Transmission-Based No Precautions Height and Weight Height 6 ft Weight 124.738 kg Weight in Pounds 275.0 lbs Weight Measurement Method Estimated by Patient Body Mass Index (BMI) 37.3 BMI Classification Obese BSA - [place] 2.44 Vital Signs Temperature (97.8 F-99.1 F) 96.9 F L Temperature Source Temporal Pulse Rate (60-100) 68 Pulse Location Monitor Respiratory Rate (12-18) 16 Respiratory rate source Observation Oxygen Delivery Method Room Air Blood Pressure (90/60-120/80) 157/83 H Blood Pressure Mean (mm Hg) 107 Source Monitor Position Sitting Blood Pressure Location Left Arm History Since Last Visit- (Skip if this is Patient's initial visit) Left Footwear Regular Shoe Right Footwear Regular Shoe Pain Scale: 0-10 Numeric Is Patient Pain Free? Yes Lower Extremity Assessment/ Foot Assessment/ Toe Nail Assessment Right -Posterior Tibial Doppler Multiphasic -Dorsalis Pedis Doppler Multiphasic -Extremity Color Hyperpigmented, Hemosiderin -Hair Growth on Legs No -Hair Growth on Toes No -Thick Yes -Discolored Yes -Deformed No -Improper Length & Hygeine No Left -Posterior Tibial Doppler Multiphasic -Dorsalis Pedis Doppler Multiphasic -Extremity Color Hyperpigmented, Hemosiderin -Hair Growth on Legs No -Hair Growth on Toes No -Thick Yes -Discolored Yes -Deformed No -Improper Length & Hygeine No Communication Assessment Preferred language Wolof Rat Culturist Required No Able to Read No: BLIND OU Right Hearing Abillity Hard of Hearing Left Hearing Abillity Hard of Hearing Visual Assistive Devices Legally Blind Teaching Assessment Preferences Verbal Barriers to Learning Hearing Impairment, Vision Impairment Readiness To Learn Good Willingness to Engage in Self Management High Activies Readiness to Engage in Self Management High Activities Anxiety Level Calm Cooperation Cooperative Perception Coherent Interest in Health Problem Asks Questions Education Importance Acknowledges Need Does Patient Smoke tobacco or other No substances Is Patient Diabetic Yes Teaching: Wound Center *Welcome to the Wound Center -Person Taught Patient, Significant Other -Response to teaching Verbalize understanding Welcome to the Wound Care Center English BOYLE - Nurse 1 - General Ulcer Measurement Start: 07/15/22 08:17 Freq: Status: Active Protocol: Activity Type Activity Date Activity User E-sign Co-sign Detail Recorded Client Recorded Date Recorded By Document 07/15/22 08:17 [facility] Desktop 07/15/22 08:26 [facility] 07/15/22 08:17 Wound Center Nurse 1 #3- L MED HEEL -Combined with other wound No -Current Size (cm) - Length 0.3 -Current Size (cm) - Width 0.8 -Current Size (cm) - Depth 0.1 -Total Square Cm 0.24 -Date of Last Picture (Recall this 07/15/22 field) -Photo Taken Yes -Epithelialization None Present -Tunneling No -Undermining/Tunneling No -Circular Undermining No -Exudate Amt Medium -Exudate Type Serous -Wound Margin Flat & Intact -Granulation Amt Medium (34-66%) -Granulation Quality [place] -Slough/Fibrin Yes -Necrosis Amt Medium (34-66%) -Necrotic Tissue Type Adherent Slough -Texture (Hannah-wound Skin Appearance) Assessed, Scarring -Moisture (Hannah-wound Skin Appearance) Assessed, Maceration -Color (Hannah-wound Skin Appearance) Assessed -Temperature (Hannah-wound Skin No Abnormality Appearance) (Pt Warm) -Tenderness on Palpation (Hannah-wound No Skin Appearance) -Ulcer Cleansing Rinsed/ Irrigated with Saline -Foul Odor after Cleansing No -Anesthetic Used 5% Lidocaine Gel #2- R MED HEEL -Combined with other wound No -Current Size (cm) - Length 0.9 -Current Size (cm) - Width 2.2 -Current Size (cm) - Depth 0.1 -Total Square Cm 1.98 -Date of Last Picture (Recall this 07/15/22 field) -Photo Taken Yes -Epithelialization None Present -Tunneling No -Undermining/Tunneling No -Circular Undermining No -Exudate Amt Medium -Exudate Type Serous -Wound Margin Flat & Intact -Granulation Amt Medium (34-66%) -Granulation Quality [place] -Slough/Fibrin Yes -Necrosis Amt Medium (34-66%) -Necrotic Tissue Type Adherent Slough -Texture (Hannah-wound Skin Appearance) Assessed, Scarring -Moisture (Hannah-wound Skin Appearance) Assessed, Maceration -Color (Hannah-wound Skin Appearance) Assessed -Temperature (Hannah-wound Skin No Abnormality Appearance) (Pt Warm) -Tenderness on Palpation (Hannah-wound No Skin Appearance) -Ulcer Cleansing Rinsed/ Irrigated with Saline -Foul Odor after Cleansing No -Anesthetic Used 5% Lidocaine Gel Lower Limb Edema Present Yes Right Calf (cm) 53 Right Ankle (cm) 31.7 Left Calf (cm) 52 Left Ankle (cm) 31.7 WC - Nurse 2 - General Ulcer CM Notes Start: 07/15/22 08:17 Freq: Status: Active Protocol: Activity Type Activity Date Activity User E-sign Co-sign Detail Recorded Client Recorded Date Recorded By Document 07/15/22 09:21 PL [id number] 07/15/22 09:25 PL 07/15/22 09:21 Wound Center Nurse 2 #3- L MED HEEL -Time 09:05 -Correct Patient Yes -Correct Side, Site, Position Yes -Correct Procedure Yes -Procedure Performed Yes -Type of Procedure Debridement -Clinical Debridement Subcutaneous -Tissue Removed Subcutaneous -Post Debridement (cm) - Length 0.6 -Post Debridement (cm) - Width 0.4 -Post Debridement (cm) - Depth 0.1 -Total Square (Post) (cm) 0.24 -Area of Debridement (cm) - Length 0.6 -Area of Debridement (cm) - Width 0.4 -Total Square (Area) (cm) 0.24 -Tunneling No -Undermining/Tunneling No -Circular Undermining No -Wound/Ulcer Outcome Not Healed -Ulcer Cleansing Rinsed/ Irrigated with Saline -Foul Odor after Cleansing No -Bioengineered Tissue No -Bleeding Controlled with Pressure -Treatment Response Procedure Tolerated Well -Debridement - Subq, 1st 20sq cm No #2- R MED HEEL -Time 09:05 -Correct Patient Yes -Correct Side, Site, Position Yes -Correct Procedure Yes -Procedure Performed Yes -Type of Procedure Debridement -Clinical Debridement Subcutaneous -Tissue Removed Subcutaneous -Post Debridement (cm) - Length 1.4 -Post Debridement (cm) - Width 2.5 -Post Debridement (cm) - Depth 0.1 -Total Square (Post) (cm) 3.50 -Area of Debridement (cm) - Length 1.4 -Area of Debridement (cm) - Width 2.5 -Total Square (Area) (cm) 3.50 -Tunneling No -Circular Undermining No -Wound/Ulcer Outcome Not Healed -Ulcer Cleansing Rinsed/ Irrigated with Saline -Bioengineered Tissue No -Bleeding Controlled with Pressure -Treatment Response Procedure Tolerated Well -Debridement - Subq, 1st 20sq cm Yes Pain Scale: 0-10 Numeric Is Patient Pain Free? Yes - Nurse 3 - General Ulcer D/C NN Start: 07/15/22 08:17 Freq: Status: Active Protocol: Activity Type Activity Date Activity User E-sign Co-sign Detail Recorded Client Recorded Date Recorded By Document 07/15/22 09:45 [facility] [id number] 07/15/22 09:54 [facility] 07/15/22 09:45 Wound Care Center Nurse 3 #3- L MED HEEL -Ulcer Cleansing Rinsed/ Irrigated with Saline -Foul Odor after Cleansing No -Primary Dressing Applied Promogran -Other Dressing ABD -Promogran 1 #2- R MED HEEL -Ulcer Cleansing Rinsed/ Irrigated with Saline -Foul Odor after Cleansing No -Primary Dressing Applied Promogran -Other Dressing ABD -Promogran 0 BLE -Multi-Layered Wrap Application Multi-Layer Comp - Bilat ($ ) Treatment Response Procedure Tolerated Well Pain Scale: 0-10 Numeric Is Patient Pain Free? Yes - Visit Discharge Discharge Condition Stable Ambulatory Status Wheelchair Transportation Private Auto Accompanied by Additional Wound Wound debrided: Left medial heel Laterality: Left Wound Grade/Stage: Mancilla stage I Type of Debridement: Excisional debridement Anesthesia Used: 5% Lidocaine Gel Depth: Down to and including healthy tissue and in the subcutaneous layer Percentage of wound debrided: 100 Instrument Used: 3mm curette Tissue Removed: Fibrous, devitalized subcutaneous, biofilm, slough Severity: Fat Layer Exposed Amount of bleeding with debridement: Mild Bleeding Controlled with: Compression and gauze Patient tolerated procedure: Patient tolerated procedure well Assessment/Plan Assessment/Plan (1) Other specified peripheral vascular diseases: CODE(S): I73.89 - Other specified peripheral vascular diseases (2) Type 2 diabetes mellitus with diabetic polyneuropathy: CODE(S): E11.42 - Type 2 diabetes mellitus with diabetic polyneuropathy (3) Venous insufficiency: CODE(S): I87.2 - Venous insufficiency (chronic) (peripheral) (4) Delayed wound healing: CODE(S): T14.8XXD - Other injury of unspecified body region, subsequent encounter (5) Essential hypertension: CODE(S): I10 - Essential (primary) hypertension (6) Hyperlipidemia: CODE(S): E78.5 - Hyperlipidemia, unspecified QUALIFIERS: Hyperlipidemia type: unspecified Qualified Code(s): E78.5 - Hyperlipidemia, unspecified (7) Non-pressure chronic ulcer of other part of left foot with fat layer exposed: CODE(S): L97.522 - Non-pressure chronic ulcer of other part of left foot with fat layer exposed (8) Non-pressure chronic ulcer of other part of right foot with fat layer exposed: CODE(S): L97.512 - Non-pressure chronic ulcer of other part of right foot with fat layer exposed (9) Bilateral edema of lower extremity: CODE(S): R60.0 - Localized edema PLAN: Plan Patient seen and evaluated Reviewed previous vascular studies performed in 2020 which demonstrated great saphenous vein incompetency bilateral. Discussed updating vascular studies both LEAS and venous. Referral to vascular specialist, Dr. Lyman. Patient does have nonpalpable DP and PT pulses with sluggish capillary fill time to the digits. He does have triphasic Doppler bilateral. He is noted to have ulceration to the medial aspect of the right heel and the medial aspect of the left heel. No signs of infection. States that he believes the AFO braces have rubbed the inside of his heel creating the wound. I did inspect his bilateral AFOs. I however feel his excessive swelling has created the issue of rubbing in the brace. Discussed recommending continued elevation of lower extremities at all times of rest and compression stockings to be worn daily. If brace continues to rub following decrease of his edema it is recommended he return to [facility] for modification of the brace with offloading padding applied to the medial wall. Ulceration to the left and right heel were debrided as noted in the clinical panel above. Ulceration left medial heel measures 0.6 cm x 0.4 cm x 0.1 cm. No signs of infection. Right medial heel ulcer measures 0.8 cm x 1.4 cm x 0.1 cm. No signs of infection. Catherine applied to bilateral ulcer site with dry sterile dressing. 3M compression wrap applied to bilateral lower extremity. He was instructed to not get the dressings wet. Ulcerations have improved versus previous visit with reduction in size. Discussed signs and symptoms of infection today. Discussed if he notices any redness about the wound site moving up the leg, any purulent drainage, increasing foul odor, or if he experiences fever greater than 101 degree, nausea, vomiting, chills that he is to report to the ED as these are signs of a progressing infection. He voices understanding of this. Discussed proper diabetic diet to ensure adequate control of blood sugars to aid wound healing. Last A1c reported at 6.8%. Patient reports blood sugars upon checks typically run in the 130's. The following work up and care recommendations were made: Dressing: Catherine and 3M compression wrap Wash: Do not get wet Tissue growth optimization: Catherine Offload: 3M compression wrap and elevation of lower extremities at all times of rest Vascular: Nonpalpable DP and PT pulses with sluggish capillary fill time. Referral to Dr. Lyman, vascular specialist was made. Recommend updating arterial and venous studies, as previous studies last performed 2020. Edema: 3M compression wrap and elevation of lower extremities at all times of rest Infection: No signs of infection Pain: May take Tylenol extra strength as needed. Host factors: DM type II with peripheral polyneuropathy, chronic venous insufficiency bilateral I answered all the patient's questions. To return to the wound healing center in 1 week or call sooner if the patient has any questions or concerns.
[2022-07-22 10:08] VITALS: BP 147/61; PULSE 56; TEMP 35.9; BMI 37.3
--- NOTE | 2022-07-29 09:53 | PN.PCM_ITS ---
History of Present Illness Date of Service: 07/29/22 Chief Complaint: Right foot ulcer History of Wound: This 76-year-old male with significant PMHx of diabetes type II with peripheral polyneuropathy, atrial fibrillation, hyperlipidemia, HTN, blindness, insomnia, history of acute renal failure, retinitis pigmentosa, Kaposi sarcoma right foot, and history of venous insufficiency with multiple procedural interventions was seen for right and left foot ulcer. Last seen by Dr. Moore, vascular specialist in 2020. Patient has not gone back for continued evaluation. Does have confirmed venous insufficiency of the great saphenous vein bilateral with bilateral lower extremity edema and lymphedema. He denies N/V/F/chills. He denies redness or odor to the foot bilateral. He is with his today. states that he had been following with Ned AbbasiP.Aura in office following dispense of Sigvaris compression wrap and bilateral AFO braces made by [employer]. states that these braces have caused rubbing on the inside of the heel of both feet that had formed a blister and eventually broke open into a wound. States that they have not healed in the last month and Dr. Hernandez referred them to the wound care center for further evaluation. Subjective Subjective This is a 76-year-old male who presents to the wound care center today for follow-up of bilateral medial heel wounds.? He has kept his compression dressing s clean, dry, and intact to the bilateral lower leg.? does notice some improvement. He denies any constitutional symptoms today.? Has no further complaints today. Objective Data Objective Data Vital Signs: Vital Signs Temp Pulse Resp BP O2 Del Method 96.7 F L 56 L 16 147/61 H Room Air 07/22/22 10:08 07/22/22 10:08 07/15/22 08:17 07/22/22 10:08 07/15/22 08:17 Oxygen Delivery Method Room Air Weight: 124.738 kg Body Mass Index (BMI) 37.3 Physical Exam Const alert, oriented x3 and no apparent distress General Appearance: cooperative HEENT normocephalic Eyes General Eye: normal appearance of both eyes Neck General: normal visual inspection Lymph Lymphatic: no lymphadenopathy noted Resp normal respiratory effort Cardio regular rate and regular rhythm Extremity no calf tenderness Extremity Narrative: DP and PT pulses nonpalpable bilateral. Capillary fill time is sluggish to the digits at 6 seconds bilateral. Absent hair growth is noted bilateral. Temperature gradient normal bilaterally. Musculoskeletal: There is some weakness in dorsiflexion of the right foot noted versus left foot. Patient ambulates in bilateral AFO braces. There is hammertoe deformity noted to be semiflexible to bilateral digits 2 through 5. Decreased range of motion of the ankle joint in dorsiflexion with knee extended without pain or crepitus. Decreased range of motion of the first MTPJ bilateral without pain or crepitus. Dermatological: There is bilateral edema noted to the lower extremities with venous stasis dermatitis to the anterior lower extremities. There is also lymphedema and skin changes noted bilateral. There are 2 superficial wounds noted to the lower extremities, 1 at the medial calcaneus right foot and 1 at medial calcaneus left foot. Skin no rashes or lesions noted, skin turgor normal and no jaundice General Skin Exam: venous stasis and dermatitis Wound Narrative: Left lower extremity: Superficial wound secondary to previous blister at the medial calcaneus below the level of the malleoli wound margins demonstrate friable skin and there is evidence of some epithelialization. No purulent drainage, no erythema, no malodor, no palpable fluctuance/bogginess, no visible abscess, no lymphangitic streaking. Right lower extremity: Ulceration noted to the medial aspect of the calcaneus below the level of the malleoli. No purulent drainage, no erythema, no malodor, no palpable fluctuance/bogginess, no visible abscess, no lymphangitic streaking. Neuro moves all extremities Neuro Narrative: Decreased protective sensation to bilateral foot consistent with peripheral polyneuropathy Debridement Note Debridement Note Wound debrided: Right medial heel Laterality: Right Wound Grade/Stage: Mancilla stage I Type of Debridement: Excisional debridement Anesthesia Used: 5% Lidocaine Gel Depth: Down to and including healthy tissue and in the subcutaneous layer Percentage of wound debrided: 100 Instrument Used: 3mm curette Tissue Removed: Fibrous, devitalized subcutaneous, biofilm, slough Severity: Fat Layer Exposed Amount of bleeding with debridement: Mild Bleeding Controlled with: Compression and gauze Patient tolerated procedure: Patient tolerated procedure well Post-Debridement Measurements and Additional Note: Post-Debridement Measurements/Treatment WC - Nurse 1 - General Ulcer Assessment Start: 07/15/22 08:17 Freq: Status: Active Protocol: WC.LOWEXT Activity Type Activity Date Activity User E-sign Co-sign Detail Recorded Client Recorded Date Recorded By Document 07/15/22 08:17 [facility] Desktop 07/15/22 08:26 [facility] Document 07/22/22 10:08 MARY [id number] 07/22/22 10:30 [place] 07/15/22 07/22/22 08:17 10:08 - Today's Visit Information Type of service Initial Visit Follow-up Visit (Physician/RUNNER OUT ) Arrival Mode Ambulatory,Cane Ambulatory Transfer Assistance Other Transfer Assist (Other) standby d/t blindness Accompanied by Patient Identification Verified (Name & Yes Yes ) Patient Requires Transmission-Based No No Precautions Height and Weight Height 6 ft Weight 124.738 kg Weight in Pounds 275.0 lbs Weight Measurement Method Estimated by Patient Body Mass Index (BMI) 37.3 37.3 BMI Classification Obese Obese BSA - [place] 2.44 Vital Signs Temperature (97.8 F-99.1 F) 96.9 F L 96.7 F L Temperature Source Temporal Temporal Pulse Rate (60-100) 68 56 L Pulse Location Monitor Monitor Respiratory Rate (12-18) 16 Respiratory rate source Observation Oxygen Delivery Method Room Air Blood Pressure (90/60-120/80) 157/83 H 147/61 H Blood Pressure Mean (mm Hg) 107 89 Source Monitor Monitor Position Sitting Blood Pressure Location Left Arm History Since Last Visit- (Skip if this is Patient's initial visit) Have you changed medications since your No last visit? Any new allergies or adverse reactions No Had a fall/change in ADL's that may No increase risk of falls Signs or symptoms of abuse and/or No neglect since last visit Have you been in the hospital since your No last visit? Has dressing in place as prescribed Yes Has compression in place as prescribed Yes Has offloadiing in place as prescribed N/A Experienced any changes in pain level or No management Left Footwear Regular Shoe Regular Shoe Right Footwear Regular Shoe Regular Shoe Pain Scale: 0-10 Numeric Is Patient Pain Free? Yes Yes Lower Extremity Assessment/ Foot Assessment/ Toe Nail Assessment Right -Posterior Tibial Doppler Multiphasic -Dorsalis Pedis Doppler Multiphasic -Extremity Color Hyperpigmented, Hemosiderin -Hair Growth on Legs No -Hair Growth on Toes No -Thick Yes -Discolored Yes -Deformed No -Improper Length & Hygeine No Left -Posterior Tibial Doppler Multiphasic -Dorsalis Pedis Doppler Multiphasic -Extremity Color Hyperpigmented, Hemosiderin -Hair Growth on Legs No -Hair Growth on Toes No -Thick Yes -Discolored Yes -Deformed No -Improper Length & Hygeine No Communication Assessment Preferred language Telugu Massotherapist Required No Able to Read No: BLIND OU Right Hearing Abillity Hard of Hearing Left Hearing Abillity Hard of Hearing Visual Assistive Devices Legally Blind Teaching Assessment Preferences Verbal Barriers to Learning Hearing Impairment, Vision Impairment Readiness To Learn Good Willingness to Engage in Self Management High Activies Readiness to Engage in Self Management High Activities Anxiety Level Calm Cooperation Cooperative Perception Coherent Interest in Health Problem Asks Questions Education Importance Acknowledges Need Does Patient Smoke tobacco or other No substances Is Patient Diabetic Yes Teaching: Wound Center *Welcome to the Wound Center -Person Taught Patient, Significant Other -Response to teaching Verbalize understanding Welcome to the Wound Care Center Telugu - Nurse 1 - General Ulcer Measurement Start: 07/15/22 08:17 Freq: Status: Active Protocol: Activity Type Activity Date Activity User E-sign Co-sign Detail Recorded Client Recorded Date Recorded By Document 07/15/22 08:17 [facility] Desktop 07/15/22 08:26 [facility] Document 07/22/22 10:08 IA [id number] 07/22/22 10:30 [place] 07/15/22 07/22/22 08:17 10:08 Wound Center Nurse 1 #3- L MED HEEL -Combined with other wound No No -Current Size (cm) - Length 0.3 0.4 -Current Size (cm) - Width 0.8 0.5 -Current Size (cm) - Depth 0.1 0.2 -Total Square Cm 0.24 0.20 -Date of Last Picture (Recall this 07/15/22 field) -Photo Taken Yes Yes -Epithelialization None Present -Tunneling No No -Undermining/Tunneling No No -Circular Undermining No No -Change in Wound Grade/Stage No -Exudate Amt Medium Medium -Exudate Type Serous Serosanguineous -Wound Margin Flat & Intact Distinct, Outline Attached -Granulation Amt Medium (34-66%) Small (1-33%) -Granulation Quality Washam Washam -Slough/Fibrin Yes Yes -Necrosis Amt Medium (34-66%) Large (67-100%) -Necrotic Tissue Type Adherent Slough Adherent Slough -Structure Exposed N/A -Texture (Hannah-wound Skin Appearance) Assessed, Assessed,Callus Scarring -Moisture (Hannah-wound Skin Appearance) Assessed, No Abnormality, Maceration Assessed -Color (Hannah-wound Skin Appearance) Assessed No Abnormality, Assessed -Temperature (Hannah-wound Skin No Abnormality No Abnormality Appearance) (Pt Warm) (Pt Warm) -Tenderness on Palpation (Hannah-wound No No Skin Appearance) -Ulcer Cleansing Rinsed/ Soap and Water Irrigated with Saline -Foul Odor after Cleansing No No -Anesthetic Used 5% Lidocaine 5% Lidocaine Gel Gel #2- R MED HEEL -Combined with other wound No No -Current Size (cm) - Length 0.9 0.4 -Current Size (cm) - Width 2.2 1.1 -Current Size (cm) - Depth 0.1 0.2 -Total Square Cm 1.98 0.44 -Date of Last Picture (Recall this 07/15/22 07/22/22 field) -Photo Taken Yes Yes -Epithelialization None Present -Tunneling No No -Undermining/Tunneling No No -Circular Undermining No No -Change in Wound Grade/Stage No -Exudate Amt Medium Medium -Exudate Type Serous Serosanguineous -Wound Margin Flat & Intact Distinct, Outline Attached -Granulation Amt Medium (34-66%) Small (1-33%) -Granulation Quality Washam Washam -Slough/Fibrin Yes Yes -Necrosis Amt Medium (34-66%) Large (67-100%) -Necrotic Tissue Type Adherent Slough Adherent Slough -Structure Exposed N/A -Texture (Hannah-wound Skin Appearance) Assessed, Assessed,Callus Scarring -Moisture (Hannah-wound Skin Appearance) Assessed, Assessed,Dry/ Maceration Scaly -Color (Hannah-wound Skin Appearance) Assessed No Abnormality, Assessed -Temperature (Hannah-wound Skin No Abnormality No Abnormality Appearance) (Pt Warm) (Pt Warm) -Tenderness on Palpation (Hannah-wound No No Skin Appearance) -Ulcer Cleansing Rinsed/ Soap and Water Irrigated with Saline -Foul Odor after Cleansing No No -Anesthetic Used 5% Lidocaine 5% Lidocaine Gel Gel Lower Limb Edema Present Yes Right Calf (cm) 53 48 Right Ankle (cm) 31.7 31 Left Calf (cm) 52 47 Left Ankle (cm) 31.7 30 - Nurse 2 - General Ulcer CM Notes Start: 07/15/22 08:17 Freq: Status: Active Protocol: Activity Type Activity Date Activity User E-sign Co-sign Detail Recorded Client Recorded Date Recorded By Document 07/15/22 09:21 PL [id number] 07/15/22 09:25 PL Document 07/22/22 11:47 PL [id number] 07/22/22 11:49 PL 07/15/22 07/22/22 09:21 11:47 Wound Center Nurse 2 #3- L MED HEEL -Time 09:05 10:35 -Correct Patient Yes Yes -Correct Side, Site, Position Yes Yes -Correct Procedure Yes Yes -Procedure Performed Yes Yes -Type of Procedure Debridement Debridement -Clinical Debridement Subcutaneous Subcutaneous -Tissue Removed Subcutaneous Subcutaneous -Post Debridement (cm) - Length 0.6 0.4 -Post Debridement (cm) - Width 0.4 0.6 -Post Debridement (cm) - Depth 0.1 0.1 -Total Square (Post) (cm) 0.24 0.24 -Area of Debridement (cm) - Length 0.6 0.4 -Area of Debridement (cm) - Width 0.4 0.6 -Total Square (Area) (cm) 0.24 0.24 -Tunneling No No -Undermining/Tunneling No No -Circular Undermining No No -Wound/Ulcer Outcome Not Healed Not Healed -Ulcer Cleansing Rinsed/ Rinsed/ Irrigated with Irrigated with Saline Saline -Foul Odor after Cleansing No No -Bioengineered Tissue No No -Bleeding Controlled with Pressure Pressure -Treatment Response Procedure Procedure Tolerated Well Tolerated Well -Debridement - Subq, 1st 20sq cm No No #2- R MED HEEL -Time 09:05 10:35 -Correct Patient Yes Yes -Correct Side, Site, Position Yes Yes -Correct Procedure Yes Yes -Procedure Performed Yes Yes -Type of Procedure Debridement Debridement -Clinical Debridement Subcutaneous Subcutaneous -Tissue Removed Subcutaneous Subcutaneous -Post Debridement (cm) - Length 1.4 0.8 -Post Debridement (cm) - Width 2.5 1.4 -Post Debridement (cm) - Depth 0.1 0.2 -Total Square (Post) (cm) 3.50 1.12 -Area of Debridement (cm) - Length 1.4 0.8 -Area of Debridement (cm) - Width 2.5 1.4 -Total Square (Area) (cm) 3.50 1.12 -Tunneling No No -Undermining/Tunneling No -Circular Undermining No No -Wound/Ulcer Outcome Not Healed Not Healed -Ulcer Cleansing Rinsed/ Rinsed/ Irrigated with Irrigated with Saline Saline -Foul Odor after Cleansing No -Bioengineered Tissue No No -Bleeding Controlled with Pressure Pressure -Treatment Response Procedure Procedure Tolerated Well Tolerated Well -Debridement - Subq, 1st 20sq cm Yes Yes Pain Scale: 0-10 Numeric Is Patient Pain Free? Yes Yes - Nurse 3 - General Ulcer D/C NN Start: 07/15/22 08:17 Freq: Status: Active Protocol: Activity Type Activity Date Activity User E-sign Co-sign Detail Recorded Client Recorded Date Recorded By Document 07/15/22 09:45 [facility] [id number] 07/15/22 09:54 [facility] Document 07/22/22 11:15 IA [id number] 07/22/22 11:17 [place] 07/15/22 07/22/22 09:45 11:15 Wound Care Center Nurse 3 #3- L MED HEEL -Ulcer Cleansing Rinsed/ Rinsed/ Irrigated with Irrigated with Saline Saline -Foul Odor after Cleansing No No -Negative Pressure Wound Therapy N/A -Primary Dressing Applied Promogran Promogran -Other Dressing ABD -Primary Dressing Covered/Secured with Dry Gauze, Secured with Tape -Promogran 1 1 #2- R MED HEEL -Ulcer Cleansing Rinsed/ Rinsed/ Irrigated with Irrigated with Saline Saline -Foul Odor after Cleansing No No -Negative Pressure Wound Therapy N/A -Primary Dressing Applied Promogran -Other Dressing ABD pomegran -Promogran 0 BLE -Lotion applied to leg before No compression wrap -Multi-Layered Wrap Application Multi-Layer Multi-Layer Comp - Bilat ($ Comp - Bilat ($ ) ) Treatment Response Procedure Tolerated Well Pain Scale: 0-10 Numeric Is Patient Pain Free? Yes Yes - Visit Discharge Discharge Condition Stable Stable Ambulatory Status Wheelchair Ambulatory Transportation Private Auto Private Auto Accompanied by Medication Reconcilliation completed & Yes provided to patient/care provider Clinical Summary of Care Provided Yes Notes: his helps guide him because he cannot see Additional Wound Wound debrided: Left medial heel Laterality: Left Wound Grade/Stage: Mancilla stage I Type of Debridement: Excisional debridement Anesthesia Used: 5% Lidocaine Gel Depth: Down to and including healthy tissue and in the subcutaneous layer Percentage of wound debrided: 100 Instrument Used: 3mm curette Tissue Removed: Fibrous, devitalized subcutaneous, biofilm, slough Severity: Fat Layer Exposed Amount of bleeding with debridement: Mild Bleeding Controlled with: Compression and gauze Patient tolerated procedure: Patient tolerated procedure well Assessment/Plan Assessment/Plan (1) Other specified peripheral vascular diseases: CODE(S): I73.89 - Other specified peripheral vascular diseases (2) Type 2 diabetes mellitus with diabetic polyneuropathy: CODE(S): E11.42 - Type 2 diabetes mellitus with diabetic polyneuropathy (3) Venous insufficiency: CODE(S): I87.2 - Venous insufficiency (chronic) (peripheral) (4) Delayed wound healing: CODE(S): T14.8XXD - Other injury of unspecified body region, subsequent encounter (5) Essential hypertension: CODE(S): I10 - Essential (primary) hypertension (6) Hyperlipidemia: CODE(S): E78.5 - Hyperlipidemia, unspecified QUALIFIERS: Hyperlipidemia type: unspecified Qualified Code(s): E78.5 - Hyperlipidemia, unspecified (7) Non-pressure chronic ulcer of other part of left foot with fat layer exposed: CODE(S): L97.522 - Non-pressure chronic ulcer of other part of left foot with fat layer exposed (8) Non-pressure chronic ulcer of other part of right foot with fat layer exposed: CODE(S): L97.512 - Non-pressure chronic ulcer of other part of right foot with fat layer exposed (9) Bilateral edema of lower extremity: CODE(S): R60.0 - Localized edema PLAN: Plan Patient seen and evaluated Reviewed previous vascular studies performed in 2020 which demonstrated great saphenous vein incompetency bilateral. Discussed updating vascular studies both LEAS and venous. Referral to vascular specialist, Dr. Lyman. Patient does hav e nonpalpable DP and PT pulses with sluggish capillary fill time to the digits. He does have triphasic Doppler bilateral. He is noted to have ulceration to the medial aspect of the right heel and the medial aspect of the left heel. No signs of infection. States that he believes the AFO braces have rubbed the inside of his heel creating the wound. I did inspect his bilateral AFOs. I however feel his excessive swelling has created the issue of rubbing in the brace. Discussed recommending continued elevation of lower extremities at all times of rest and compression stockings to be worn daily. If brace continues to rub following decrease of his edema it is recommended he return to [facility] ([place]) for modification of the brace with offloading padding applied to the medial wall. Ulceration to the left and right heel were debrided as noted in the clinical panel above. Ulceration left medial heel measures 0.6 cm x 0.4 cm x 0.1 cm. No signs of infection. Right medial heel ulcer measures 1.0 cm x 0.5 cm x 0.1 cm. No signs of infection. Catherine applied to bilateral ulcer site with dry sterile dressing. 3M compression wrap applied to bilateral lower extremity. He was instructed to not get the dressings wet. Ulcerations have improved versus previous visit with reduction in size. Discussed signs and symptoms of infection today. Discussed if he notices any redness about the wound site moving up the leg, any purulent drainage, increasing foul odor, or if he experiences fever greater than 101 degree, nausea, vomiting, chills that he is to report to the ED as these are signs of a progressing infection. He voices understanding of this. Discussed proper diabetic diet to ensure adequate control of blood sugars to aid wound healing. Last A1c reported at 6.8%. Patient reports blood sugars upon checks typically run in the 130's. The following work up and care recommendations were made: Dressing: Catherine and 3M compression wrap Wash: Do not get wet Tissue growth optimization: Catherine Offload: 3M compression wrap and elevation of lower extremities at all times of rest Vascular: Nonpalpable DP and PT pulses with sluggish capillary fill time. Referral to Dr. Lyman, vascular specialist was made. Recommend updating arterial and venous studies, as previous studies last performed 2020. Edema: 3M compression wrap and elevation of lower extremities at all times of rest Infection: No signs of infection Pain: May take Tylenol extra strength as needed. Host factors: DM type II with peripheral polyneuropathy, chronic venous insufficiency bilateral I answered all the patient's questions. To return to the wound healing center in 1 week or call sooner if the patient has any questions or concerns.
[2022-07-29 11:27] VITALS: BP 149/72; PULSE 59; TEMP 36.2; BMI 37.3
== END 2022-08-04 23:59 | disposition home or self-care (01) ==
LOC: WC 09:45
PROVIDERS: PCP Internal Medicine; Referring Provider Podiatrist; Visit Provider Student in an Organized Health Care Education/Training Program
DX: E11.621 Type 2 diabetes mellitus with foot ulcer (principal); C46.0 Kaposi's sarcoma of skin; E11.51 Type 2 diabetes mellitus with diabetic peripheral angiopathy without gangrene; L97.412 Non-pressure chronic ulcer of right heel and midfoot with fat layer exposed; L97.422 Non-pressure chronic ulcer of left heel and midfoot with fat layer exposed; E11.42 Type 2 diabetes mellitus with diabetic polyneuropathy; I48.0 Paroxysmal atrial fibrillation; R60.0 Localized edema; G89.29 Other chronic pain; G47.00 Insomnia, unspecified; M54.9 Dorsalgia, unspecified; I10 Essential (primary) hypertension; E78.5 Hyperlipidemia, unspecified; E03.9 Hypothyroidism, unspecified; I87.2 Venous insufficiency (chronic) (peripheral); I89.0 Lymphedema, not elsewhere classified; Z79.01 Long term (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 of anticoagulants; Z79.890 Hormone replacement therapy; Z79.899 Other long term (current) drug therapy; Z87.891 Personal history of nicotine dependence
CPT/HCPCS: 11042; 29581; 99213; G0463

== ENCOUNTER 2022-09-02 10:15 | Outpatient (RCR) | payer MEDICARE, OTHER, SELFPAY ==
[2022-08-05 00:45] VITALS: BP 149/72; PULSE 59; RESP 16; TEMP 36.2; BMI 37.3
[2022-08-05 10:04] VITALS: BP 130/79; PULSE 75; RESP 16; TEMP 36.1; BMI 37.3
--- NOTE | 2022-08-05 10:10 | PN.PCM_ITS ---
History of Present Illness Date of Service: 08/05/22 Chief Complaint: Right foot ulcer History of Wound: This 76-year-old male with significant PMHx of diabetes type II with peripheral polyneuropathy, atrial fibrillation, hyperlipidemia, HTN, blindness, insomnia, history of acute renal failure, retinitis pigmentosa, Kaposi sarcoma right foot, and history of venous insufficiency with multiple procedural interventions was seen for right and left foot ulcer. Last seen by Dr. Moore, vascular specialist in 2020. Patient has not gone back for continued evaluation. Does have confirmed venous insufficiency of the great saphenous vein bilateral with bilateral lower extremity edema and lymphedema. He denies N/V/F/chills. He denies redness or odor to the foot bilateral. He is with his today. states that he had been following with Ned AbbasiP.Aura in office following dispense of Sigvaris compression wrap and bilateral AFO braces made by [email or web address]. states that these braces have caused rubbing on the inside of the heel of both feet that had formed a blister and eventually broke open into a wound. States that they have not healed in the last month and Dr. Hernandez referred them to the wound care center for further evaluation. Subjective Subjective This is a 76-year-old male who presents to the wound care center today for follow-up of bilateral medial heel wounds.? He has kept his compression dressing s clean, dry, and intact to the bilateral lower leg.? does notice some improvement and states his left foot looks healed. He denies any constitutional symptoms today.? Has no further complaints today. Objective Data Objective Data Vital Signs: Vital Signs Temp Pulse Resp BP 97.1 F L 59 L 16 149/72 H 08/05/22 00:45 08/05/22 00:45 08/05/22 00:45 08/05/22 00:45 Weight: 124.738 kg Body Mass Index (BMI) 37.3 Physical Exam Const alert, oriented x3 and no apparent distress General Appearance: cooperative HEENT normocephalic Eyes General Eye: normal appearance of both eyes Neck General: normal visual inspection Lymph Lymphatic: no lymphadenopathy noted and no lymphedema noted Resp normal respiratory effort Cardio regular rate and regular rhythm Extremity normal capillary refill, no joint enlargement, no calf tenderness and no pedal edema Extremity Narrative: DP and PT pulses nonpalpable bilateral.? Capillary fill time is sluggish to the digits at 6 seconds bilateral.? Absent hair growth is noted bilateral.? Temperature gradient normal bilaterally. Musculoskeletal: There is some weakness in dorsiflexion of the right foot noted versus left foot.? Patient ambulates in bilateral AFO braces.? There is hammertoe deformity noted to be semiflexible to bilateral digits 2 through 5.? Decreased range of motion of the ankle joint in dorsiflexion with knee extended without pain or crepitus.? Decreased range of motion of the first MTPJ bilateral without pain or crepitus. Dermatological: There is bilateral edema noted to the lower extremities with venous stasis dermatitis to the anterior lower extremities.? There is also lymphedema and skin changes noted bilateral.? There are 2 superficial wounds noted to the lower extremities, 1 at the medial calcaneus right foot and 1 at medial calcaneus left foot. Skin no rashes or lesions noted, skin turgor normal and no jaundice General Skin Exam: venous stasis and dermatitis Wound Narrative: Left lower extremity: Superficial wound secondary to previous blister at the medial calcaneus below the level of the malleoli has healed. No signs of infection Right lower extremity: Ulceration noted to the medial aspect of the calcaneus below the level of the malleoli.? No purulent drainage, no erythema, no malodor, no palpable fluctuance/bogginess, no visible abscess, no lymphangitic streaking. Neuro moves all extremities Neuro Narrative: Decreased protective sensation to bilateral foot consistent with peripheral polyneuropathy Debridement Note Debridement Note Wound debrided: Right medial heel Laterality: Right Wound Grade/Stage: Mancilla stage I Type of Debridement: Excisional debridement Anesthesia Used: 5% Lidocaine Gel Depth: Down to and including healthy tissue and in the subcutaneous layer Percentage of wound debrided: 100 Instrument Used: 3mm curette Tissue Removed: fibrous, devitalized subcutaneous, biofilm, slough Severity: Fat Layer Exposed Amount of bleeding with debridement: Mild Bleeding Controlled with: Compression and gauze Patient tolerated procedure: Patient tolerated procedure well Assessment/Plan Assessment/Plan (1) Bilateral edema of lower extremity: CODE(S): R60.0 - Localized edema (2) Non-pressure chronic ulcer of other part of right foot with fat layer exposed: CODE(S): L97.512 - Non-pressure chronic ulcer of other part of right foot with fat layer exposed (3) Non-pressure chronic ulcer of other part of left foot with fat layer exposed: CODE(S): L97.522 - Non-pressure chronic ulcer of other part of left foot with fat layer exposed (4) Type 2 diabetes mellitus with diabetic polyneuropathy: CODE(S): E11.42 - Type 2 diabetes mellitus with diabetic polyneuropathy (5) Other specified peripheral vascular diseases: CODE(S): I73.89 - Other specified peripheral vascular diseases (6) Venous insufficiency: CODE(S): I87.2 - Venous insufficiency (chronic) (peripheral) (7) Essential hypertension: CODE(S): I10 - Essential (primary) hypertension (8) Hyperlipidemia: CODE(S): E78.5 - Hyperlipidemia, unspecified QUALIFIERS: Hyperlipidemia type: unspecified Qualified Code(s): E78.5 - Hyperlipidemia, unspecified (9) Delayed wound healing: CODE(S): T14.8XXD - Other injury of unspecified body region, subsequent encounter PLAN: Plan Patient seen and evaluated Reviewed previous vascular studies performed in 2020 which demonstrated great saphenous vein incompetency bilateral.? Discussed updating vascular studies both LEAS and venous.? Referral to vascular specialist, Dr. Lyman.? Patient does have nonpalpable DP and PT pulses with sluggish capillary fill time to the digits.? He does have triphasic Doppler bilateral. He is noted to have ulceration to the medial aspect of the right heel and the medial aspect of the left heel.? No signs of infection.? States that he believes the AFO braces have rubbed the inside of his heel creating the wound.? I did inspect his bilateral AFOs.? I however feel his excessive swelling has created the issue of rubbing in the brace.? Discussed recommending continued elevation of lower extremities at all times of rest and compression stockings to be worn daily.? If brace continues to rub following decrease of his edema it is recommended he return to [facility] for modification of the brace with offloading padding applied to the medial wall. Ulceration to the left and right heel were debrided as noted in the clinical panel above.? Ulceration left medial heel has healed no signs of infection.? Right medial heel ulcer measures 1.2 cm x 0.6 cm x 0.1 cm.? No signs of infection.? Catherine applied to ulcer site with dry sterile dressing.? 3M compression wrap applied to right lower extremity.? He was instructed to not get the dressings wet. He was placed back into his compression stocking with juxta light compression wrap to the left lower extremity. Ulcerations have improved versus previous visit with reduction in size, Left foot ulceration has healed. Discussed signs and symptoms of infection today.? Discussed if he notices any redness about the wound site moving up the leg, any purulent drainage, increasing foul odor, or if he experiences fever greater than 101 degree, nausea, vomiting, chills that he is to report to the ED as these are signs of a progressing infection.? He voices understanding of this. Discussed proper diabetic diet to ensure adequate control of blood sugars to aid wound healing.? Last A1c reported at 6.8%.? Patient reports blood sugars upon checks typically run in the 130's. The following work up and care recommendations were made: Dressing: Catherine and 3M compression wrap Wash: Do not get wet Tissue growth optimization: Catherine Offload: 3M compression wrap and elevation of lower extremities at all times of rest Vascular: Nonpalpable DP and PT pulses with sluggish capillary fill time.? Referral to Dr. Lyman, vascular specialist was made.? Recommend updating arterial and venous studies, as previous studies last performed 2020. Edema: 3M compression wrap and elevation of lower extremities at all times of rest Infection: No signs of infection Pain: May take Tylenol extra strength as needed. Host factors: DM type II with peripheral polyneuropathy, chronic venous insufficiency bilateral ? I answered all the patient's questions.? To return to the wound healing center in 1 week or call sooner if the patient has any questions or concerns.
--- NOTE | 2022-08-12 10:02 | PCM.WC.PN ---
History of Present Illness Date of Service: 08/12/22 Chief Complaint: Right foot ulcer History of Wound: This 76-year-old male with significant PMHx of diabetes type II with peripheral polyneuropathy, atrial fibrillation, hyperlipidemia, HTN, blindness, insomnia, history of acute renal failure, retinitis pigmentosa, Kaposi sarcoma right foot, and history of venous insufficiency with multiple procedural interventions was seen for right and left foot ulcer. Last seen by Dr. Moore, vascular specialist in 2020. Patient has not gone back for continued evaluation. Does have confirmed venous insufficiency of the great saphenous vein bilateral with bilateral lower extremity edema and lymphedema. He denies N/V/F/chills. He denies redness or odor to the foot bilateral. He is with his today. states that he had been following with Ned AbbasiP.Aura in office following dispense of Sigvaris compression wrap and bilateral AFO braces made by [employer]. states that these braces have caused rubbing on the inside of the heel of both feet that had formed a blister and eventually broke open into a wound. States that they have not healed in the last month and Dr. Hernandez referred them to the wound care center for further evaluation. Subjective Subjective This is a 76-year-old male who presents to the wound care center today for follow-up of bilateral medial heel wounds.? He has kept his compression dressings clean, dry, and intact to the bilateral lower leg.? does notice continued improvement. He denies any constitutional symptoms today.? Has no further complaints today. Objective Data Objective Data Vital Signs: Vital Signs Temp Pulse Resp BP 97.0 F L 75 16 130/79 H 08/05/22 10:04 08/05/22 10:04 08/05/22 10:04 08/05/22 10:04 Weight: 124.738 kg Body Mass Index (BMI) 37.3 Physical Exam Const alert, oriented x3 and no apparent distress General Appearance: cooperative HEENT normocephalic Eyes General Eye: normal appearance of both eyes Neck General: normal visual inspection Lymph Lymphatic: no lymphadenopathy noted and no lymphedema noted Resp normal respiratory effort Cardio regular rate and regular rhythm Extremity normal capillary refill, no joint enlargement, no calf tenderness and no pedal edema Extremity Narrative: DP and PT pulses nonpalpable bilateral.? Capillary fill time is sluggish to the digits at 6 seconds bilateral.? Absent hair growth is noted bilateral.? Temperature gradient normal bilaterally. Musculoskeletal: There is some weakness in dorsiflexion of the right foot noted versus left foot.? Patient ambulates in bilateral AFO braces.? There is hammertoe deformity noted to be semiflexible to bilateral digits 2 through 5.? Decreased range of motion of the ankle joint in dorsiflexion with knee extended without pain or crepitus.? Decreased range of motion of the first MTPJ bilateral without pain or crepitus. Dermatological: There is bilateral edema noted to the lower extremities with venous stasis dermatitis to the anterior lower extremities.? There is also lymphedema and skin changes noted bilateral.? There are 2 superficial wounds noted to the lower extremities, 1 at the medial calcaneus right foot and 1 at medial calcaneus left foot. Skin no rashes or lesions noted, skin turgor normal and no jaundice General Skin Exam: venous stasis and dermatitis Wound Narrative: Left lower extremity: Superficial wound secondary to previous blister at the medial calcaneus below the level of the malleoli has healed. No signs of infection Right lower extremity: Ulceration noted to the medial aspect of the calcaneus below the level of the malleoli.? No purulent drainage, no erythema, no malodor, no palpable fluctuance/bogginess, no visible abscess, no lymphangitic streaking. Neuro moves all extremities Neuro Narrative: Decreased protective sensation to bilateral foot consistent with peripheral polyneuropathy Debridement Note Debridement Note Wound debrided: Right medial heel Laterality: Right Wound Grade/Stage: Mancilla stage I Type of Debridement: Excisional debridement Anesthesia Used: 5% Lidocaine Gel Depth: Down to and including healthy tissue and in the subcutaneous layer Percentage of wound debrided: 100 Instrument Used: 3mm curette Tissue Removed: Fibrous, devitalized subcutaneous, biofilm, slough Severity: Fat Layer Exposed Amount of bleeding with debridement: Mild Bleeding Controlled with: Compression and gauze Patient tolerated procedure: Patient tolerated procedure well Post-Debridement Measurements and Additional Note: Post-Debridement Measurements/Treatment [place] - Nurse 1 - General Ulcer Assessment Start: 08/05/22 10:03 Freq: Status: Active Protocol: JORGE Activity Type Activity Date Activity User E-sign Co-sign Detail Recorded Client Recorded Date Recorded By Document 08/05/22 10:04 MARY [id number] 08/05/22 10:13 MARY 08/05/22 10:04 WC - Today's Visit Information Type of service Follow-up Visit (Physician/CONSTRUCTION SECRETARY ) Arrival Mode Ambulatory Accompanied by Patient Identification Verified (Name & Yes ) Patient Requires Transmission-Based No Precautions Height and Weight Body Mass Index (BMI) 37.3 BMI Classification Obese Vital Signs Temperature (97.8 F-99.1 F) 97.0 F L Temperature Source Temporal Pulse Rate (60-100) 75 Pulse Location Monitor Respiratory Rate (12-18) 16 Respiratory rate source Observation Blood Pressure (90/60-120/80) 130/79 H Blood Pressure Mean (mm Hg) 96 Source Monitor Position Sitting Blood Pressure Location Left Forearm History Since Last Visit- (Skip if this is Patient's initial visit) Have you changed medications since your No last visit? Any new allergies or adverse reactions No Had a fall/change in ADL's that may No increase risk of falls Signs or symptoms of abuse and/or No neglect since last visit Have you been in the hospital since your No last visit? Has dressing in place as prescribed Yes Has compression in place as prescribed Yes Has offloadiing in place as prescribed N/A Experienced any changes in pain level or No management Left Footwear Regular Shoe Right Footwear Regular Shoe Pain Scale: 0-10 Numeric Is Patient Pain Free? Yes - Nurse 1 - General Ulcer Measurement Start: 08/05/22 10:03 Freq: Status: Active Protocol: Activity Type Activity Date Activity User E-sign Co-sign Detail Recorded Client Recorded Date Recorded By Document 08/05/22 10:04 MARY [id number] 08/05/22 10:13 MARY 08/05/22 10:04 Wound Center Nurse 1 #3- L MED HEEL -Current Size (cm) - Length 0.1 -Current Size (cm) - Width 0.1 -Current Size (cm) - Depth 0.1 -Total Square Cm 0.01 -Photo Taken Yes -Epithelialization Large 67-100% -Tunneling No -Circular Undermining No -Exudate Amt None Present -Wound Margin Fibrotic Scar, Thickened Scar -Granulation Amt None Present (0 %) -Slough/Fibrin Yes -Necrosis Amt Large (67-100%) -Structure Exposed N/A -Texture (Hannah-wound Skin Appearance) Assessed,Callus -Moisture (Hannah-wound Skin Appearance) Assessed,Dry/ Scaly -Color (Hannah-wound Skin Appearance) Assessed -Temperature (Hannah-wound Skin No Abnormality Appearance) (Pt Warm) -Tenderness on Palpation (Hannah-wound No Skin Appearance) #2- R MED HEEL -Combined with other wound No -Current Size (cm) - Length 0.4 -Current Size (cm) - Width 0.7 -Current Size (cm) - Depth 0.2 -Total Square Cm 0.28 -Photo Taken Yes -Epithelialization Small 1-33% -Tunneling No -Undermining/Tunneling No -Circular Undermining No -Exudate Amt Small -Exudate Type Serosanguineous -Wound Margin Fibrotic Scar, Thickened Scar -Granulation Amt Medium (34-66%) -Granulation Quality Red -Slough/Fibrin Yes -Necrosis Amt Small (1-33%) -Necrotic Tissue Type Adherent Slough -Structure Exposed N/A -Texture (Hannah-wound Skin Appearance) Assessed,Callus ,Excoriation -Moisture (Hannah-wound Skin Appearance) Assessed,Dry/ Scaly -Color (Hannah-wound Skin Appearance) Assessed -Temperature (Hannah-wound Skin No Abnormality Appearance) (Pt Warm) -Tenderness on Palpation (Hannah-wound No Skin Appearance) -Ulcer Cleansing Rinsed/ Irrigated with Saline -Foul Odor after Cleansing No -Anesthetic Used 5% Lidocaine Gel Lower Limb Edema Present Yes Right Calf (cm) 48.6 Right Ankle (cm) 30.3 Left Calf (cm) 45 Left Ankle (cm) 29.3 WC - Nurse 2 - General Ulcer CM Notes Start: 08/05/22 10:03 Freq: Status: Active Protocol: Activity Type Activity Date Activity User E-sign Co-sign Detail Recorded Client Recorded Date Recorded By Document 08/05/22 12:20 PL [id number] 08/05/22 12:21 PL 08/05/22 12:20 Wound Center Nurse 2 #2- R MED HEEL -Time 10:29 -Correct Patient Yes -Correct Side, Site, Position Yes -Correct Procedure Yes -Procedure Performed Yes -Type of Procedure Debridement -Clinical Debridement Subcutaneous -Tissue Removed Subcutaneous -Post Debridement (cm) - Length 1.2 -Post Debridement (cm) - Width 0.6 -Post Debridement (cm) - Depth 0.1 -Total Square (Post) (cm) 0.72 -Area of Debridement (cm) - Length 1.2 -Area of Debridement (cm) - Width 0.6 -Total Square (Area) (cm) 0.72 -Tunneling No -Undermining/Tunneling No -Circular Undermining No -Wound/Ulcer Outcome Not Healed -Ulcer Cleansing Rinsed/ Irrigated with Saline -Foul Odor after Cleansing No -Bioengineered Tissue No -Bleeding Controlled with Pressure -Treatment Response Procedure Tolerated Well -Debridement - Subq, 1st 20sq cm Yes Pain Scale: 0-10 Numeric Is Patient Pain Free? Yes - Nurse 3 - General Ulcer D/C NN Start: 08/05/22 10:03 Freq: Status: Active Protocol: Activity Type Activity Date Activity User E-sign Co-sign Detail Recorded Client Recorded Date Recorded By Document 08/05/22 11:19 [id number] 08/05/22 11:20 08/05/22 11:19 Wound Care Center Nurse 3 #2- R MED HEEL -Ulcer Cleansing Rinsed/ Irrigated with Saline -Foul Odor after Cleansing No -Primary Dressing Applied Promogran Catherine Matter -Primary Dressing Covered/Secured with Dry Gauze -Promogran Catherine Matter 1 Right -Multi-Layered Wrap Application Multi-Layer Comp - Right ($ ) Pain Scale: 0-10 Numeric Is Patient Pain Free? Yes - Visit Discharge Discharge Condition Stable Ambulatory Status Ambulatory,Cane Transportation Private Auto Accompanied by Medication Reconcilliation completed & Yes provided to patient/care provider Clinical Summary of Care Provided Yes Assessment/Plan Assessment/Plan (1) Bilateral edema of lower extremity: CODE(S): R60.0 - Localized edema (2) Non-pressure chronic ulcer of other part of right foot with fat layer exposed: CODE(S): L97.512 - Non-pressure chronic ulcer of other part of right foot with fat layer exposed (3) Non-pressure chronic ulcer of other part of left foot with fat layer exposed: CODE(S): L97.522 - Non-pressure chronic ulcer of other part of left foot with fat layer exposed (4) Type 2 diabetes mellitus with diabetic polyneuropathy: CODE(S): E11.42 - Type 2 diabetes mellitus with diabetic polyneuropathy (5) Other specified peripheral vascular diseases: CODE(S): I73.89 - Other specified peripheral vascular diseases (6) Venous insufficiency: CODE(S): I87.2 - Venous insufficiency (chronic) (peripheral) (7) Essential hypertension: CODE(S): I10 - Essential (primary) hypertension (8) Hyperlipidemia: CODE(S): E78.5 - Hyperlipidemia, unspecified QUALIFIERS: Hyperlipidemia type: unspecified Qualified Code(s): E78.5 - Hyperlipidemia, unspecified (9) Delayed wound healing: CODE(S): T14.8XXD - Other injury of unspecified body region, subsequent encounter PLAN: Plan Patient seen and evaluated Reviewed previous vascular studies performed in 2020 which demonstrated great saphenous vein incompetency bilateral.? Discussed updating vascular studies both LEAS and venous.? Referral to vascular specialist, Dr. Lyman.? Patient does have nonpalpable DP and PT pulses with sluggish capillary fill time to the digits.? He does have triphasic Doppler bilateral. He is noted to have ulceration to the medial aspect of the right heel and the medial aspect of the left heel.? No signs of infection.? States that he believes the AFO braces have rubbed the inside of his heel creating the wound.? I did inspect his bilateral AFOs.? I however feel his excessive swelling has created the issue of rubbing in the brace.? Discussed recommending continued elevation of lower extremities at all times of rest and compression stockings to be worn daily.? If brace continues to rub following decrease of his edema it is recommended he return to [facility] for modification of the brace with offloading padding applied to the medial wall. Ulceration to the left and right heel were debrided as noted in the clinical panel above.? Ulceration left medial heel remains healed.? Right medial heel ulcer measures 0.9 cm x 0.5 cm x 0.1 cm.? No signs of infection.? Catherine applied to ulcer site with dry sterile dressing.? 3M compression wrap applied to right lower extremity.? He was instructed to not get the dressings wet. He was placed back into his compression stocking with juxta light compression wrap to the left lower extremity. Ulcerations have improved versus previous visit with reduction in size, Left foot ulceration remains healed. Discussed signs and symptoms of infection today.? Discussed if he notices any redness about the wound site moving up the leg, any purulent drainage, increasing foul odor, or if he experiences fever greater than 101 degree, nausea, vomiting, chills that he is to report to the ED as these are signs of a progressing infection.? He voices understanding of this. Discussed proper diabetic diet to ensure adequate control of blood sugars to aid wound healing.? Last A1c reported at 6.8%.? Patient reports blood sugars upon checks typically run in the 130's. The following work up and care recommendations were made: Dressing: Catherine and 3M compression wrap Wash: Do not get wet Tissue growth optimization: Catherine Offload: 3M compression wrap and elevation of lower extremities at all times of rest Vascular: Nonpalpable DP and PT pulses with sluggish capillary fill time.? Referral to Dr. Lyman, vascular specialist was made.? Recommend updating arterial and venous studies, as previous studies last performed 2020. Edema: 3M compression wrap and elevation of lower extremities at all times of rest Infection: No signs of infection Pain: May take Tylenol extra strength as needed. Host factors: DM type II with peripheral polyneuropathy, chronic venous insufficiency bilateral ? I answered all the patient's questions.? To return to the wound healing center in 1 week or call sooner if the patient has any questions or concerns.
[2022-08-12 10:05] VITALS: BP 143/82; PULSE 58; TEMP 36.5; BMI 37.3
[2022-08-19 09:59] VITALS: BP 145/79; PULSE 73; RESP 18; TEMP 36.1; BMI 37.3
--- NOTE | 2022-08-19 10:12 | PN.PCM_ITS ---
History of Present Illness Date of Service: 08/19/22 Chief Complaint: Right foot ulcer History of Wound: This 76-year-old male with significant PMHx of diabetes type II with peripheral polyneuropathy, atrial fibrillation, hyperlipidemia, HTN, blindness, insomnia, history of acute renal failure, retinitis pigmentosa, Kaposi sarcoma right foot, and history of venous insufficiency with multiple procedural interventions was seen for right and left foot ulcer. Last seen by Dr. Moore, vascular specialist in 2020. Patient has not gone back for continued evaluation. Does have confirmed venous insufficiency of the great saphenous vein bilateral with bilateral lower extremity edema and lymphedema. He denies N/V/F/chills. He denies redness or odor to the foot bilateral. He is with his today. states that he had been following with Dr. Natalia Hernandez, [place].P.Aura in office following dispense of Sigvaris compression wrap and bilateral AFO braces made by [employer]. states that these braces have caused rubbing on the inside of the heel of both feet that had formed a blister and eventually broke open into a wound. States that they have not healed in the last month and Dr. Hernandez referred them to the wound care center for further evaluation. Subjective Subjective This is a 76-year-old male who presents to the wound care center today for follow-up of bilateral medial heel wounds.? He has kept his compression dressing s clean, dry, and intact to the bilateral lower leg.?He states he tries to keep legs up but cannot always do this. He denies any constitutional symptoms today.? Has no further complaints today. Objective Data Objective Data Vital Signs: Vital Signs Temp Pulse Resp BP O2 Del Method 97.0 F L 73 18 145/79 H Room Air 08/19/22 09:59 08/19/22 09:59 08/19/22 09:59 08/19/22 09:59 08/19/22 09:59 Oxygen Delivery Method Room Air Weight: 124.738 kg Body Mass Index (BMI) 37.3 Physical Exam Const alert, oriented x3 and no apparent distress General Appearance: cooperative HEENT normocephalic Eyes General Eye: normal appearance of both eyes Neck General: normal visual inspection Lymph Lymphatic: no lymphadenopathy noted and no lymphedema noted Resp normal respiratory effort Cardio regular rate and regular rhythm Extremity normal capillary refill, no joint enlargement, no calf tenderness and no pedal edema Extremity Narrative: DP and PT pulses nonpalpable bilateral.? Capillary fill time is sluggish to the digits at 6 seconds bilateral.? Absent hair growth is noted bilateral.? [place] rature gradient normal bilaterally. Musculoskeletal: There is some weakness in dorsiflexion of the right foot noted versus left foot.? Patient ambulates in bilateral AFO braces.? There is hammertoe deformity noted to be semiflexible to bilateral digits 2 through 5.? Decreased range of motion of the ankle joint in dorsiflexion with knee extended without pain or crepitus.? Decreased range of motion of the first MTPJ bilateral without pain or crepitus. Dermatological: There is bilateral edema noted to the lower extremities with venous stasis dermatitis to the anterior lower extremities.? There is also lymphedema and skin changes noted bilateral.? There is a superficial wound noted to the medial calcaneus right foot. Skin no rashes or lesions noted, skin turgor normal and no jaundice General Skin Exam: venous stasis and dermatitis Wound Narrative: Left lower extremity: Superficial wound secondary to previous blister at the medial calcaneus below the level of the malleoli has healed. No signs of infection Right lower extremity: Ulceration noted to the medial aspect of the calcaneus below the level of the malleoli.? No purulent drainage, no erythema, no malodor, no palpable fluctuance/bogginess, no visible abscess, no lymphangitic streaking. Neuro moves all extremities Neuro Narrative: Decreased protective sensation to bilateral foot consistent with peripheral polyneuropathy Debridement Note Debridement Note Wound debrided: Right medial heel Laterality: Right Wound Grade/Stage: [place] stage I Type of Debridement: Excisional debridement Anesthesia Used: 5% Lidocaine Gel Depth: Down to and including healthy tissue and in the subcutaneous layer Percentage of wound debrided: 100 Instrument Used: 3mm curette Tissue Removed: Fibrous, devitalized subcutaneous, biofilm, slough Severity: Fat Layer Exposed Amount of bleeding with debridement: Mild Bleeding Controlled with: Compression and gauze Patient tolerated procedure: Patient tolerated procedure well Post-Debridement Measurements and Additional Note: Post-Debridement Measurements/Treatment [place] - Nurse 1 - General Ulcer Assessment Start: 08/05/22 10:03 Freq: Status: Active Protocol: WC.LOWEXT Activity Type Activity Date Activity User E-sign Co-sign Detail Recorded Client Recorded Date Recorded By Document 08/05/22 10:04 MARY [id number] 08/05/22 10:13 AK Document 08/12/22 10:05 MARY [id number] 08/12/22 10:08 AK Document 08/19/22 09:59 KW [id number] 08/19/22 10:10 KW 08/05/22 08/12/22 08/19/22 10:04 10:05 09:59 WC - Today's Visit Information Type of service Follow-up Visit Follow-up Visit Follow-up Visit (Physician/AMUSEMENT OR RECREATION CARD CHECKER (Physician/AMUSEMENT OR RECREATION CARD CHECKER (Physician/AMUSEMENT OR RECREATION CARD CHECKER ) ) ) Arrival Mode Ambulatory Ambulatory Ambulatory Accompanied by Patient Identification Verified (Name & Yes Yes Yes ) Patient Requires Transmission-Based No No No Precautions Safety Precautions NA Fall Prevention Height and Weight Body Mass Index (BMI) 37.3 37.3 37.3 BMI Classification Obese Obese Obese Vital Signs Temperature (97.8 F-99.1 F) 97.0 F L 97.7 F L 97.0 F L Temperature Source Temporal Temporal Temporal Pulse Rate (60-100) 75 58 L 73 Pulse Location Monitor Monitor Monitor Respiratory Rate (12-18) 16 18 Respiratory rate source Observation Observation Oxygen Delivery Method Room Air Blood Pressure (90/60-120/80) 130/79 H 143/82 H 145/79 H Blood Pressure Mean (mm Hg) 96 102 101 Source Monitor Monitor Monitor Position Sitting Semi-Fowlers Blood Pressure Location Left Forearm Right Arm History Since Last Visit- (Skip if this is Patient's initial visit) Have you changed medications since your No No No last visit? Any new allergies or adverse reactions No No No Had a fall/change in ADL's that may No No No increase risk of falls Signs or symptoms of abuse and/or No No No neglect since last visit Have you been in the hospital since your No No No last visit? Has dressing in place as prescribed Yes Yes Yes Has compression in place as prescribed Yes Yes Yes Has offloadiing in place as prescribed N/A N/A N/A Experienced any changes in pain level or No No No management Left Footwear Regular Shoe Regular Shoe Regular Shoe Right Footwear Regular Shoe Regular Shoe Regular Shoe Pain Scale: 0-10 Numeric Is Patient Pain Free? Yes Yes Yes WC - Nurse 1 - General Ulcer Measurement Start: 08/05/22 10:03 Freq: Status: Active Protocol: Activity Type Activity Date Activity User E-sign Co-sign Detail Recorded Client Recorded Date Recorded By Document 08/05/22 10:04 AK [id number] 08/05/22 10:13 AK Document 08/12/22 10:05 AK [id number] 08/12/22 10:08 AK Document 08/19/22 09:59 KW [id number] 08/19/22 10:10 KW 08/05/22 08/12/22 08/19/22 10:04 10:05 09:59 Wound Center Nurse 1 #3- L MED HEEL -Current Size (cm) - Length 0.1 -Current Size (cm) - Width 0.1 -Current Size (cm) - Depth 0.1 -Total Square Cm 0.01 -Photo Taken Yes -Epithelialization Large 67-100% -Tunneling No -Circular Undermining No -Exudate Amt None Present -Wound Margin Fibrotic Scar, Thickened Scar -Granulation Amt None Present (0 %) -Slough/Fibrin Yes -Necrosis Amt Large (67-100%) -Structure Exposed N/A -Texture (Hannah-wound Skin Appearance) Assessed,Callus -Moisture (Hannah-wound Skin Appearance) Assessed,Dry/ Scaly -Color (Hannah-wound Skin Appearance) Assessed -Temperature (Hannah-wound Skin No Abnormality Appearance) (Pt Warm) -Tenderness on Palpation (Hannah-wound No Skin Appearance) #2- R MED HEEL -Combined with other wound No No -Current Size (cm) - Length 0.4 0.4 -Current Size (cm) - Width 0.7 0.7 -Current Size (cm) - Depth 0.2 0.2 -Total Square Cm 0.28 0.28 -Photo Taken Yes Yes -Epithelialization Small 1-33% -Tunneling No No -Undermining/Tunneling No No -Circular Undermining No No -Change in Wound Grade/Stage No -Exudate Amt Small Medium -Exudate Type Serosanguineous Serosanguineous -Wound Margin Fibrotic Scar, Distinct, Thickened Scar Outline Attached -Granulation Amt Medium (34-66%) Medium (34-66%) -Granulation Quality [place] -Slough/Fibrin Yes Yes -Necrosis Amt Small (1-33%) Medium (34-66%) -Necrotic Tissue Type Adherent Slough -Structure Exposed N/A N/A -Texture (Hannah-wound Skin Appearance) Assessed,Callus Assessed Assessed ,Excoriation -Moisture (Hannah-wound Skin Appearance) Assessed,Dry/ No Abnormality, Assessed Scaly Assessed -Color (Hannah-wound Skin Appearance) Assessed No Abnormality, Assessed Assessed -Temperature (Hannah-wound Skin No Abnormality No Abnormality No Abnormality Appearance) (Pt Warm) (Pt Warm) (Pt Warm) -Tenderness on Palpation (Hannah-wound No No No Skin Appearance) -Ulcer Cleansing Rinsed/ Rinsed/ Rinsed/ Irrigated with Irrigated with Irrigated with Saline Saline Saline -Foul Odor after Cleansing No No -Anesthetic Used 5% Lidocaine 5% Lidocaine 5% Lidocaine Gel Gel Gel Lower Limb Edema Present Yes No Right Calf (cm) 48.6 46 Right Ankle (cm) 30.3 32 Left Calf (cm) 45 Left Ankle (cm) 29.3 WC - Nurse 2 - General Ulcer CM Notes Start: 08/05/22 10:03 Freq: Status: Active Protocol: Activity Type Activity Date Activity User E-sign Co-sign Detail Recorded Client Recorded Date Recorded By Document 08/05/22 12:20 PL [id number] 08/05/22 12:21 PL Document 08/12/22 12:39 PL [id number] 08/12/22 12:40 PL 08/05/22 08/12/22 12:20 12:39 Wound Center Nurse 2 #2- R MED HEEL -Time 10:29 10:04 -Correct Patient Yes Yes -Correct Side, Site, Position Yes Yes -Correct Procedure Yes Yes -Procedure Performed Yes Yes -Type of Procedure Debridement Debridement -Clinical Debridement Subcutaneous Subcutaneous -Tissue Removed Subcutaneous Subcutaneous -Post Debridement (cm) - Length 1.2 0.9 -Post Debridement (cm) - Width 0.6 0.5 -Post Debridement (cm) - Depth 0.1 0.1 -Total Square (Post) (cm) 0.72 0.45 -Area of Debridement (cm) - Length 1.2 0.9 -Area of Debridement (cm) - Width 0.6 0.5 -Total Square (Area) (cm) 0.72 0.45 -Tunneling No No -Undermining/Tunneling No No -Circular Undermining No No -Wound/Ulcer Outcome Not Healed Not Healed -Ulcer Cleansing Rinsed/ Rinsed/ Irrigated with Irrigated with Saline Saline -Foul Odor after Cleansing No No -Bioengineered Tissue No No -Bleeding Controlled with Pressure Pressure -Treatment Response Procedure Procedure Tolerated Well Tolerated Well -Debridement - Subq, 1st 20sq cm Yes Yes Pain Scale: 0-10 Numeric Is Patient Pain Free? Yes Yes - Nurse 3 - General Ulcer D/C NN Start: 08/05/22 10:03 Freq: Status: Active Protocol: Activity Type Activity Date Activity User E-sign Co-sign Detail Recorded Client Recorded Date Recorded By Document 08/05/22 11:19 AMPARO [id number] 08/05/22 11:20 Document 08/12/22 10:12 AK [id number] 08/12/22 10:13 AK 08/05/22 08/12/22 11:19 10:12 Wound Care Center Nurse 3 #2- R MED HEEL -Ulcer Cleansing Rinsed/ Rinsed/ Irrigated with Irrigated with Saline Saline -Foul Odor after Cleansing No No -Negative Pressure Wound Therapy N/A -Primary Dressing Applied Promogran Suellen Matter -Other Dressing own suellen -Primary Dressing Covered/Secured with Dry Gauze Dry Gauze -Promogran Suellen Matter 1 Right -Lotion applied to leg before Yes compression wrap -Multi-Layered Wrap Application Multi-Layer Multi-Layer Comp - Right ($ Comp - Right ($ ) ) Pain Scale: 0-10 Numeric Is Patient Pain Free? Yes Yes - Visit Discharge Discharge Condition Stable Stable Ambulatory Status Ambulatory,Cane Ambulatory,Cane Transportation Private Auto Private Auto Accompanied by Medication Reconcilliation completed & Yes Yes provided to patient/care provider Clinical Summary of Care Provided Yes Yes Notes: helps guide. PT is blind Assessment/Plan Assessment/Plan (1) Bilateral edema of lower extremity: CODE(S): R60.0 - Localized edema (2) Non-pressure chronic ulcer of other part of right foot with fat layer exposed: CODE(S): L97.512 - Non-pressure chronic ulcer of other part of right foot with fat layer exposed (3) Non-pressure chronic ulcer of other part of left foot with fat layer exposed: CODE(S): L97.522 - Non-pressure chronic ulcer of other part of left foot with fat layer exposed (4) Type 2 diabetes mellitus with diabetic polyneuropathy: CODE(S): E11.42 - Type 2 diabetes mellitus with diabetic polyneuropathy (5) Other specified peripheral vascular diseases: CODE(S): I73.89 - Other specified peripheral vascular diseases (6) Venous insufficiency: CODE(S): I87.2 - Venous insufficiency (chronic) (peripheral) (7) Essential hypertension: CODE(S): I10 - Essential (primary) hypertension (8) Hyperlipidemia: CODE(S): E78.5 - Hyperlipidemia, unspecified QUALIFIERS: Hyperlipidemia type: unspecified Qualified Code(s): E78.5 - Hyperlipidemia, unspecified (9) Delayed wound healing: CODE(S): T14.8XXD - Other injury of unspecified body region, subsequent encounter PLAN: Plan Patient seen and evaluated Reviewed previous vascular studies performed in 2020 which demonstrated great saphenous vein incompetency bilateral.? Discussed updating vascular studies both LEAS and venous.? Referral to vascular specialist, Dr. Lyman.? Patient does have nonpalpable DP and PT pulses with sluggish capillary fill time to the digits.? He does have triphasic Doppler bilateral. He is noted to have ulceration to the medial aspect of the right heel and the medial aspect of the left heel.? No signs of infection.? States that he believes the AFO braces have rubbed the inside of his heel creating the wound.? I did inspect his bilateral AFOs.? I however feel his excessive swelling has created the issue of rubbing in the brace.? Discussed recommending continued elevation of lower extremities at all times of rest and compression stockings to be worn daily.? If brace continues to rub following decrease of his edema it is recommended he [facility] to [facility] for modification of the brace with offloading padding applied to the medial wall. Ulceration to the left and right heel were debrided as noted in the clinical panel above.? Ulceration left medial heel remains healed.? Right medial heel ulcer measures 1.0 cm x 0.5 cm x 0.1 cm.? No signs of infection.? There is more maceration about the wound site today versus previous visit. Suellen applied to ulcer site with dry sterile dressing.? 3M compression wrap applied to right lower extremity.? He was instructed to not get the dressings wet. He was placed back into his compression stocking with juxta light compression wrap to the left lower extremity. Ulceration relatively unchanged from previous visit for right foot, Left foot ulceration remains healed. Discussed he must continue to elevate lower extremities at all times of rest. Despite 3M compression dressing I feel he is not elevating as his swelling has remained relatively unchanged over these past few weeks. Discussed with him that this is hindering his wound healing progress. Discussed signs and symptoms of infection today.? Discussed if he notices any redness about the wound site moving up the leg, any purulent drainage, increasing foul odor, or if he experiences fever greater than 101 degree, nausea, vomiting, chills that he is to report to the ED as these are signs of a progressing infection.? He voices understanding of this. Discussed proper diabetic diet to ensure adequate control of blood sugars to aid wound healing.? Last A1c reported at 6.8%.? Patient reports blood sugars upon checks typically run in the 130's. The following work up and care recommendations were made: Dressing: Suellen and 3M compression wrap Wash: Do not get wet Tissue growth optimization: Suellen Offload: 3M compression wrap and elevation of lower extremities at all times of rest Vascular: Nonpalpable DP and PT pulses with sluggish capillary fill time.? Referral to Dr. Lyman, vascular specialist was made.? Recommend updating arterial and venous studies, as previous studies last performed 2020. Edema: 3M compression wrap and elevation of lower extremities at all times of rest Infection: No signs of infection Pain: May take Tylenol extra strength as needed. Host factors: DM type II with peripheral polyneuropathy, chronic venous insufficiency bilateral ? I answered all the patient's questions.? To return to the wound healing center in 1 week or call sooner if the patient has any questions or concerns.
--- NOTE | 2022-08-26 10:37 | PCM.WC.PN ---
History of Present Illness Date of Service: 08/26/22 Chief Complaint: Right foot ulcer History of Wound: This 76-year-old male with significant PMHx of diabetes type II with peripheral polyneuropathy, atrial fibrillation, hyperlipidemia, HTN, blindness, insomnia, history of acute renal failure, retinitis pigmentosa, Kaposi sarcoma right foot, and history of venous insufficiency with multiple procedural interventions was seen for right and left foot ulcer. Last seen by Dr. Moore, vascular specialist in 2020. Patient has not gone back for continued evaluation. Does have confirmed venous insufficiency of the great saphenous vein bilateral with bilateral lower extremity edema and lymphedema. He denies N/V/F/chills. He denies redness or odor to the foot bilateral. He is with his today. states that he had been following with Orly Abbasi.P.Aura in office following dispense of Sigvaris compression wrap and bilateral AFO braces made by [employer]. states that these braces have caused rubbing on the inside of the heel of both feet that had formed a blister and eventually broke open into a wound. States that they have not healed in the last month and Dr. Hernandez referred them to the wound care center for further evaluation. Subjective Subjective This is a 76-year-old male who presents to the wound care center today for follow-up of bilateral medial heel wounds.? He has kept his compression dressings clean, dry, and intact to the bilateral lower leg.?He states he tries to keep legs up but cannot always do this as he often gets up and moves around. States he only elevates for a few hours out of the day. He denies any constitutional symptoms today.? Has no further complaints today. Objective Data Objective Data Vital Signs: Vital Signs Temp Pulse Resp BP O2 Del Method 97.0 F L 73 18 145/79 H Room Air 08/19/22 09:59 08/19/22 09:59 08/19/22 09:59 08/19/22 09:59 08/19/22 09:59 Oxygen Delivery Method Room Air Weight: 124.738 kg Body Mass Index (BMI) 37.3 Physical Exam Const alert, oriented x3 and no apparent distress General Appearance: cooperative HEENT normocephalic Eyes General Eye: normal appearance of both eyes Neck General: normal visual inspection Lymph Lymphatic: no lymphadenopathy noted and no lymphedema noted Resp normal respiratory effort Cardio regular rate and regular rhythm Extremity normal capillary refill, no joint enlargement, no calf tenderness and no pedal edema Extremity Narrative: DP and PT pulses nonpalpable bilateral.? Capillary fill time is sluggish to the digits at 6 seconds bilateral.? Absent hair growth is noted bilateral.? Temperature gradient normal bilaterally. Musculoskeletal: There is some weakness in dorsiflexion of the right foot noted versus left foot.? Patient ambulates in bilateral AFO braces.? There is hammertoe deformity noted to be semiflexible to bilateral digits 2 through 5.? Decreased range of motion of the ankle joint in dorsiflexion with knee extended without pain or crepitus.? Decreased range of motion of the first MTPJ bilateral without pain or crepitus. Dermatological: There is bilateral edema noted to the lower extremities with venous stasis dermatitis to the anterior lower extremities.? There is also lymphedema and skin changes noted bilateral.? There is a superficial wound noted to the medial calcaneus right foot. Skin no rashes or lesions noted, skin turgor normal and no jaundice General Skin Exam: venous stasis and dermatitis Wound Narrative: Left lower extremity: Superficial wound secondary to previous blister at the medial calcaneus below the level of the malleoli has healed. No signs of infection Right lower extremity: Ulceration noted to the medial aspect of the calcaneus below the level of the malleoli.? No purulent drainage, no erythema, no malodor, no palpable fluctuance/bogginess, no visible abscess, no lymphangitic streaking. Neuro moves all extremities Neuro Narrative: Decreased protective sensation to bilateral foot consistent with peripheral polyneuropathy Debridement Note Debridement Note Wound debrided: Right medial heel Laterality: Right Wound Grade/Stage: M[place] stage I Type of Debridement: Excisional debridement Anesthesia Used: 5% Lidocaine Gel Depth: Down to and including healthy tissue and in the subcutaneous layer Percentage of wound debrided: 100 Instrument Used: 5mm curette Tissue Removed: Fibrous, devitalized subcutaneous, biofilm, slough Severity: Fat Layer Exposed Amount of bleeding with debridement: Mild Bleeding Controlled with: Compression and gauze Patient tolerated procedure: Patient tolerated procedure well Post-Debridement Measurements and Additional Note: Post-Debridement Measurements/Treatment WC - Nurse 1 - General Ulcer Assessment Start: 08/05/22 10:03 Freq: Status: Active Protocol: WC.LOWEXT Activity Type Activity Date Activity User E-sign Co-sign Detail Recorded Client Recorded Date Recorded By Document 08/05/22 10:04 AK [id number] 08/05/22 10:13 AK Document 08/12/22 10:05 AK [id number] 08/12/22 10:08 AK Document 08/19/22 09:59 KW [id number] 08/19/22 10:10 KW 08/05/22 08/12/22 08/19/22 10:04 10:05 09:59 WC - Today's Visit Information Type of service Follow-up Visit Follow-up Visit Follow-up Visit (Physician/MAIL ROOM (Physician/MAIL ROOM (Physician/MAIL ROOM ) ) ) Arrival Mode Ambulatory Ambulatory Ambulatory Accompanied by Patient Identification Verified (Name & Yes Yes Yes ) Patient Requires Transmission-Based No No No Precautions Safety Precautions NA Fall Prevention Height and Weight Body Mass Index (BMI) 37.3 37.3 37.3 BMI Classification Obese Obese Obese Vital Signs Temperature (97.8 F-99.1 F) 97.0 F L 97.7 F L 97.0 F L Temperature Source Temporal Temporal Temporal Pulse Rate (60-100) 75 58 L 73 Pulse Location Monitor Monitor Monitor Respiratory Rate (12-18) 16 18 Respiratory rate source Observation Observation Oxygen Delivery Method Room Air Blood Pressure (90/60-120/80) 130/79 H 143/82 H 145/79 H Blood Pressure Mean (mm Hg) 96 102 101 Source Monitor Monitor Monitor Position Sitting Semi-Fowlers Blood Pressure Location Left Forearm Right Arm History Since Last Visit- (Skip if this is Patient's initial visit) Have you changed medications since your No No No last visit? Any new allergies or adverse reactions No No No Had a fall/change in ADL's that may No No No increase risk of falls Signs or symptoms of abuse and/or No No No neglect since last visit Have you been in the hospital since your No No No last visit? Has dressing in place as prescribed Yes Yes Yes Has compression in place as prescribed Yes Yes Yes Has offloadiing in place as prescribed N/A N/A N/A Experienced any changes in pain level or No No No management Left Footwear Regular Shoe Regular Shoe Regular Shoe Right Footwear Regular Shoe Regular Shoe Regular Shoe Pain Scale: 0-10 Numeric Is Patient Pain Free? Yes Yes Yes WC - Nurse 1 - General Ulcer Measurement Start: 08/05/22 10:03 Freq: Status: Active Protocol: Activity Type Activity Date Activity User E-sign Co-sign Detail Recorded Client Recorded Date Recorded By Document 08/05/22 10:04 AK [id number] 08/05/22 10:13 AK Document 08/12/22 10:05 AK [id number] 08/12/22 10:08 AK Document 08/19/22 09:59 KW [id number] 08/19/22 10:10 KW 08/05/22 08/12/22 08/19/22 10:04 10:05 09:59 Wound Center Nurse 1 #3- L MED HEEL -Current Size (cm) - Length 0.1 -Current Size (cm) - Width 0.1 -Current Size (cm) - Depth 0.1 -Total Square Cm 0.01 -Photo Taken Yes -Epithelialization Large 67-100% -Tunneling No -Circular Undermining No -Exudate Amt None Present -Wound Margin Fibrotic Scar, Thickened Scar -Granulation Amt None Present (0 %) -Slough/Fibrin Yes -Necrosis Amt Large (67-100%) -Structure Exposed N/A -Texture (Hannah-wound Skin Appearance) Assessed,Callus -Moisture (Hannah-wound Skin Appearance) Assessed,Dry/ Scaly -Color (Hannah-wound Skin Appearance) Assessed -Temperature (Hannah-wound Skin No Abnormality Appearance) (Pt Warm) -Tenderness on Palpation (Hannah-wound No Skin Appearance) #2- R MED HEEL -Combined with other wound No No -Current Size (cm) - Length 0.4 0.4 -Current Size (cm) - Width 0.7 0.7 -Current Size (cm) - Depth 0.2 0.2 -Total Square Cm 0.28 0.28 -Photo Taken Yes Yes -Epithelialization Small 1-33% -Tunneling No No -Undermining/Tunneling No No -Circular Undermining No No -Change in Wound Grade/Stage No -Exudate Amt Small Medium -Exudate Type Serosanguineous Serosanguineous -Wound Margin Fibrotic Scar, Distinct, Thickened Scar Outline Attached -Granulation Amt Medium (34-66%) Medium (34-66%) -Granulation Quality Red [place] -Slough/Fibrin Yes Yes -Necrosis Amt Small (1-33%) Medium (34-66%) -Necrotic Tissue Type Adherent Slough -Structure Exposed N/A N/A -Texture (Hannah-wound Skin Appearance) Assessed,Callus Assessed Assessed ,Excoriation -Moisture (Hannah-wound Skin Appearance) Assessed,Dry/ No Abnormality, Assessed Scaly Assessed -Color (Hannah-wound Skin Appearance) Assessed No Abnormality, Assessed Assessed -Temperature (Hannah-wound Skin No Abnormality No Abnormality No Abnormality Appearance) (Pt Warm) (Pt Warm) (Pt Warm) -Tenderness on Palpation (Hannah-wound No No No Skin Appearance) -Ulcer Cleansing Rinsed/ Rinsed/ Rinsed/ Irrigated with Irrigated with Irrigated with Saline Saline Saline -Foul Odor after Cleansing No No -Anesthetic Used 5% Lidocaine 5% Lidocaine 5% Lidocaine Gel Gel Gel Lower Limb Edema Present Yes No Right Calf (cm) 48.6 46 Right Ankle (cm) 30.3 32 Left Calf (cm) 45 Left Ankle (cm) 29.3 WC - Nurse 2 - General Ulcer CM Notes Start: 08/05/22 10:03 Freq: Status: Active Protocol: Activity Type Activity Date Activity User E-sign Co-sign Detail Recorded Client Recorded Date Recorded By Document 08/05/22 12:20 [id number] 08/05/22 12:21 Document 08/12/22 12:39 [id number] 08/12/22 12:40 Document 08/19/22 12:10 [id number] 08/19/22 12:12 08/05/22 08/12/22 08/19/22 12:20 12:39 12:10 Wound Center Nurse 2 #2- R MED HEEL -Time 10:29 10:04 10:16 -Correct Patient Yes Yes Yes -Correct Side, Site, Position Yes Yes Yes -Correct Procedure Yes Yes Yes -Procedure Performed Yes Yes Yes -Type of Procedure Debridement Debridement Debridement -Clinical Debridement Subcutaneous Subcutaneous Subcutaneous -Tissue Removed Subcutaneous Subcutaneous Dermis, Subcutaneous -Post Debridement (cm) - Length 1.2 0.9 1.0 -Post Debridement (cm) - Width 0.6 0.5 0.5 -Post Debridement (cm) - Depth 0.1 0.1 0.1 -Total Square (Post) (cm) 0.72 0.45 0.50 -Area of Debridement (cm) - Length 1.2 0.9 1.0 -Area of Debridement (cm) - Width 0.6 0.5 0.5 -Total Square (Area) (cm) 0.72 0.45 0.50 -Tunneling No No No -Undermining/Tunneling No No No -Circular Undermining No No No -Wound/Ulcer Outcome Not Healed Not Healed Not Healed -Ulcer Cleansing Rinsed/ Rinsed/ Rinsed/ Irrigated with Irrigated with Irrigated with Saline Saline Saline -Foul Odor after Cleansing No No No -Bioengineered Tissue No No No -Bleeding Controlled with Pressure Pressure Pressure -Treatment Response Procedure Procedure Procedure Tolerated Well Tolerated Well Tolerated Well -Debridement - Subq, 1st 20sq cm Yes Yes Yes Pain Scale: 0-10 Numeric Is Patient Pain Free? Yes Yes Yes WC - Nurse 3 - General Ulcer D/C NN Start: 08/05/22 10:03 Freq: Status: Active Protocol: Activity Type Activity Date Activity User E-sign Co-sign Detail Recorded Client Recorded Date Recorded By Document 08/05/22 11:19 [id number] 08/05/22 11:20 Document 08/12/22 10:12 AK [id number] 08/12/22 10:13 AK Document 08/19/22 12:10 PL [id number] 08/19/22 12:12 PL 08/05/22 08/12/22 08/19/22 11:19 10:12 12:10 Wound Care Center Nurse 3 #2- R MED HEEL -Ulcer Cleansing Rinsed/ Rinsed/ Rinsed/ Irrigated with Irrigated with Irrigated with Saline Saline Saline -Foul Odor after Cleansing No No No -Negative Pressure Wound Therapy N/A -Primary Dressing Applied Promogran Aquacel Extra, Suellen Matter Promogran -Other Dressing own suellen -Primary Dressing Covered/Secured with Dry Gauze Dry Gauze Dry Gauze & Roll Gauze, Secured with Tape -Aquacel Extra 1 -Promogran 1 -Promogran Suellen Matter 1 Right -Lotion applied to leg before Yes compression wrap -Multi-Layered Wrap Application Multi-Layer Multi-Layer Multi-Layer Comp - Right ($ Comp - Right ($ Comp - Right ($ ) ) ) Pain Scale: 0-10 Numeric Is Patient Pain Free? Yes Yes Yes WC - Visit Discharge Discharge Condition Stable Stable Stable Ambulatory Status Ambulatory,Cane Ambulatory,Cane Cane Transportation Private Auto Private Auto Private Auto Accompanied by Medication Reconcilliation completed & Yes Yes provided to patient/care provider Clinical Summary of Care Provided Yes Yes Notes: helps guide. PT is blind Assessment/Plan Assessment/Plan (1) Bilateral edema of lower extremity: CODE(S): R60.0 - Localized edema (2) Non-pressure chronic ulcer of other part of right foot with fat layer exposed: CODE(S): L97.512 - Non-pressure chronic ulcer of other part of right foot with fat layer exposed (3) Non-pressure chronic ulcer of other part of left foot with fat layer exposed: CODE(S): L97.522 - Non-pressure chronic ulcer of other part of left foot with fat layer exposed (4) Type 2 diabetes mellitus with diabetic polyneuropathy: CODE(S): E11.42 - Type 2 diabetes mellitus with diabetic polyneuropathy (5) Other specified peripheral vascular diseases: CODE(S): I73.89 - Other specified peripheral vascular diseases (6) Venous insufficiency: CODE(S): I87.2 - Venous insufficiency (chronic) (peripheral) (7) Essential hypertension: CODE(S): I10 - Essential (primary) hypertension (8) Hyperlipidemia: CODE(S): E78.5 - Hyperlipidemia, unspecified QUALIFIERS: Hyperlipidemia type: unspecified Qualified Code(s): E78.5 - Hyperlipidemia, unspecified (9) Delayed wound healing: CODE(S): T14.8XXD - Other injury of unspecified body region, subsequent encounter PLAN: Plan Patient seen and evaluated Reviewed previous vascular studies performed in 2020 which demonstrated great saphenous vein incompetency bilateral.? Discussed updating vascular studies both LEAS and venous.? Referral to vascular specialist, Dr. Lyman.? Patient does have nonpalpable DP and PT pulses with sluggish capillary fill time to the digits.? He does have triphasic Doppler bilateral. He is noted to have ulceration to the medial aspect of the right heel and the medial aspect of the left heel.? No signs of infection.? States that he believes the AFO braces have rubbed the inside of his heel creating the wound.? I did inspect his bilateral AFOs.? I however feel his excessive swelling has created the issue of rubbing in the brace.? Discussed recommending continued elevation of lower extremities at all times of rest and compression stockings to be worn daily.? If brace continues to rub following decrease of his edema it is recommended he return to [facility] for modification of the brace with offloading padding applied to the medial wall. Ulceration to the right heel was debrided as noted in the clinical panel above.? Ulceration left medial heel remains healed.? Right medial heel ulcer measures 0.8 cm x 1.5 cm x 0.1 cm.? No signs of infection.? There is continued maceration about the wound site today consistent with versus previous visit. Suellen applied to ulcer site with Aquacel Ag and dry sterile dressing.? 3M compression wrap applied to right lower extremity.? He was instructed to not get the dressings wet. He will continue his compression stocking with juxta light compression wrap to the left lower extremity. Ulceration relatively increased in size from previous visit for right foot, Left foot ulceration remains healed. Discussed he must continue to elevate lower extremities at all times of rest. Despite 3M compression dressing I continue to feel he is not elevating as his swelling has remained relatively unchanged over these past few weeks. Discussed with him that this is hindering his wound healing progress. Discussed signs and symptoms of infection today.? Discussed if he notices any redness about the wound site moving up the leg, any purulent drainage, increasing foul odor, or if he experiences fever greater than 101 degree, nausea, vomiting, chills that he is to report to the ED as these are signs of a progressing infection.? He voices understanding of this. Discussed proper diabetic diet to ensure adequate control of blood sugars to aid wound healing.? Last A1c reported at 6.8%.? Patient reports blood sugars upon checks typically run in the 130's. The following work up and care recommendations were made: Dressing: Suellen and 3M compression wrap Wash: Do not get wet Tissue growth optimization: Suellen Offload: 3M compression wrap and elevation of lower extremities at all times of rest Vascular: Nonpalpable DP and PT pulses with sluggish capillary fill time.? Referral to Dr. Lyman, vascular specialist was made.? Recommend updating arterial and venous studies, as previous studies last performed 2020. Edema: 3M compression wrap and elevation of lower extremities at all times of rest Infection: No signs of infection Pain: May take Tylenol extra strength as needed. Host factors: DM type II with peripheral polyneuropathy, chronic venous insufficiency bilateral ? I answered all the patient's questions.? To return to the wound healing center in 1 week or call sooner if the patient has any questions or concerns.
[2022-08-26 11:19] VITALS: BP 161/62; PULSE 66; TEMP 36.2; BMI 37.3
[2022-08-27 13:55] VITALS: BP 128/49; PULSE 56; RESP 20; TEMP 36.2; BMI 37.3
[2022-09-02 10:16] VITALS: BP 136/53; PULSE 48; RESP 18; TEMP 36.3; BMI 37.3
--- NOTE | 2022-09-02 10:21 | PCM.WC.PN ---
History of Present Illness Date of Service: 09/02/22 Chief Complaint: Right foot ulcer History of Wound: This 76-year-old male with significant PMHx of diabetes type II with peripheral polyneuropathy, atrial fibrillation, hyperlipidemia, HTN, blindness, insomnia, history of acute renal failure, retinitis pigmentosa, Kaposi sarcoma right foot, and history of venous insufficiency with multiple procedural interventions was seen for right and left foot ulcer. Last seen by Dr. Moore, vascular specialist in 2020. Patient has not gone back for continued evaluation. Does have confirmed venous insufficiency of the great saphenous vein bilateral with bilateral lower extremity edema and lymphedema. He denies N/V/F/chills. He denies redness or odor to the foot bilateral. He is with his today. states that he had been following with Orly Abbasi.P.Aura in office following dispense of Sigvaris compression wrap and bilateral AFO braces made by [employer]. states that these braces have caused rubbing on the inside of the heel of both feet that had formed a blister and eventually broke open into a wound. States that they have not healed in the last month and Dr. Hernandez referred them to the wound care center for further evaluation. Subjective Subjective This is a 76-year-old male who presents to the wound care center today for follow-up of bilateral medial heel wounds.? He has kept his compression dressings clean, dry, and intact to the bilateral lower leg.?He states he tries to keep legs up but cannot always do this as he often gets up and moves around. States he only elevates for a few hours out of the day. feels wound did get smaller with the different compression dressing. He denies any constitutional symptoms today.? Has no further complaints today. Objective Data Objective Data Vital Signs: Vital Signs Temp Pulse Resp BP O2 Del Method 97.2 F L 56 L 20 H 128/49 H Room Air 08/27/22 13:55 08/27/22 13:55 08/27/22 13:55 08/27/22 13:55 08/27/22 13:55 Oxygen Delivery Method Room Air Weight: 124.738 kg Body Mass Index (BMI) 37.3 Physical Exam Const alert, oriented x3 and no apparent distress General Appearance: cooperative HEENT normocephalic Eyes General Eye: normal appearance of both eyes Neck General: normal visual inspection Lymph Lymphatic: no lymphadenopathy noted and no lymphedema noted Resp normal respiratory effort Cardio regular rate and regular rhythm Extremity normal capillary refill, no joint enlargement, no calf tenderness and no pedal edema Extremity Narrative: DP and PT pulses nonpalpable bilateral.? Capillary fill time is sluggish to the digits at 6 seconds bilateral.? Absent hair growth is noted bilateral.? Temperature gradient normal bilaterally. Musculoskeletal: There is some weakness in dorsiflexion of the right foot noted versus left foot.? Patient ambulates in bilateral AFO braces.? There is hammertoe deformity noted to be semiflexible to bilateral digits 2 through 5.? Decreased range of motion of the ankle joint in dorsiflexion with knee extended without pain or crepitus.? Decreased range of motion of the first MTPJ bilateral without pain or crepitus. Dermatological: There is bilateral edema noted to the lower extremities with venous stasis dermatitis to the anterior lower extremities.? There is also lymphedema and skin changes noted bilateral.? There is a superficial wound noted to the medial calcaneus right foot. Skin no rashes or lesions noted, skin turgor normal and no jaundice General Skin Exam: venous stasis and dermatitis Wound Narrative: Left lower extremity: Superficial wound secondary to previous blister at the medial calcaneus below the level of the malleoli has healed. No signs of infection Right lower extremity: Ulceration noted to the medial aspect of the calcaneus below the level of the malleoli.? No purulent drainage, no erythema, no malodor, no palpable fluctuance/bogginess, no visible abscess, no lymphangitic streaking. Neuro moves all extremities Neuro Narrative: Decreased protective sensation to bilateral foot consistent with peripheral polyneuropathy Debridement Note Debridement Note Wound debrided: Right medial heel Laterality: Right Wound Grade/Stage: [place] stage I Type of Debridement: Excisional debridement Anesthesia Used: 5% Lidocaine Gel Depth: Down to and including healthy tissue and in the subcutaneous layer Percentage of wound debrided: 100 Instrument Used: 5mm curette Tissue Removed: Fibrous, devitalized subcutaneous, biofilm, slough Severity: Fat Layer Exposed Amount of bleeding with debridement: Mild Bleeding Controlled with: Compression and gauze Patient tolerated procedure: Patient tolerated procedure well Post-Debridement Measurements and Additional Note: Post-Debridement Measurements/Treatment WC - Nurse 1 - General Ulcer Assessment Start: 08/05/22 10:03 Freq: Status: Active Protocol: [place] Activity Type Activity Date Activity User E-sign Co-sign Detail Recorded Client Recorded Date Recorded By Document 08/05/22 10:04 AK [id number] 08/05/22 10:13 AK Document 08/12/22 10:05 AK [id number] 08/12/22 10:08 AK Document 08/19/22 09:59 KW [id number] 08/19/22 10:10 KW Document 08/26/22 11:19 AK [id number] 08/26/22 11:29 AK Document 08/27/22 13:55 MW [id number] 08/27/22 13:57 MW 08/05/22 08/12/22 08/19/22 10:04 10:05 09:59 WC - Today's Visit Information Type of service Follow-up Visit Follow-up Visit Follow-up Visit (Physician/FURNACE COMBINATION ANALYST (Physician/FURNACE COMBINATION ANALYST (Physician/FURNACE COMBINATION ANALYST ) ) ) Arrival Mode Ambulatory Ambulatory Ambulatory Transfer Assistance Accompanied by Patient Identification Verified (Name & Yes Yes Yes ) Patient Requires Transmission-Based No No No Precautions Safety Precautions NA Fall Prevention Height and Weight Body Mass Index (BMI) 37.3 37.3 37.3 BMI Classification Obese Obese Obese Vital Signs Temperature (97.8 F-99.1 F) 97.0 F L 97.7 F L 97.0 F L Temperature Source Temporal Temporal Temporal Pulse Rate (60-100) 75 58 L 73 Pulse Location Monitor Monitor Monitor Respiratory Rate (12-18) 16 18 Respiratory rate source Observation Observation Oxygen Delivery Method Room Air Blood Pressure (90/60-120/80) 130/79 H 143/82 H 145/79 H Blood Pressure Mean (mm Hg) 96 102 101 Source Monitor Monitor Monitor Position Sitting Semi-Fowlers Blood Pressure Location Left Forearm Right Arm History Since Last Visit- (Skip if this is Patient's initial visit) Have you changed medications since your No No No last visit? Any new allergies or adverse reactions No No No Had a fall/change in ADL's that may No No No increase risk of falls Signs or symptoms of abuse and/or No No No neglect since last visit Have you been in the hospital since your No No No last visit? Has dressing in place as prescribed Yes Yes Yes Has compression in place as prescribed Yes Yes Yes Has offloadiing in place as prescribed N/A N/A N/A Experienced any changes in pain level or No No No management Left Footwear Regular Shoe Regular Shoe Regular Shoe Right Footwear Regular Shoe Regular Shoe Regular Shoe Pain Scale: 0-10 Numeric Is Patient Pain Free? Yes Yes Yes 08/26/22 08/27/22 11:19 13:55 WC - Today's Visit Information Type of service Follow-up Visit Nurse-only (Physician/FURNACE COMBINATION ANALYST Visit ) Arrival Mode Ambulatory,Cane Ambulatory Transfer Assistance None Accompanied by Patient Identification Verified (Name & Yes ) Patient Requires Transmission-Based No No Precautions Safety Precautions NA Height and Weight Body Mass Index (BMI) 37.3 37.3 BMI Classification Obese Obese Vital Signs Temperature (97.8 F-99.1 F) 97.1 F L 97.2 F L Temperature Source Temporal Temporal Pulse Rate (60-100) 66 56 L Pulse Location Monitor Monitor Respiratory Rate (12-18) 20 H Respiratory rate source Observation Oxygen Delivery Method Room Air Blood Pressure (90/60-120/80) 161/62 H 128/49 H Blood Pressure Mean (mm Hg) 95 75 Source Monitor Monitor Position Sitting Blood Pressure Location Left Arm History Since Last Visit- (Skip if this is Patient's initial visit) Have you changed medications since your No last visit? Any new allergies or adverse reactions No Had a fall/change in ADL's that may No increase risk of falls Signs or symptoms of abuse and/or No neglect since last visit Have you been in the hospital since your No last visit? Has dressing in place as prescribed Yes Has compression in place as prescribed N/A Has offloadiing in place as prescribed N/A Experienced any changes in pain level or No management Left Footwear Regular Shoe Regular Shoe Right Footwear Regular Shoe Regular Shoe Pain Scale: 0-10 Numeric Is Patient Pain Free? Yes Yes - Nurse 1 - General Ulcer Measurement Start: 08/05/22 10:03 Freq: Status: Active Protocol: Activity Type Activity Date Activity User E-sign Co-sign Detail Recorded Client Recorded Date Recorded By Document 08/05/22 10:04 MARY [id number] 08/05/22 10:13 AK Document 08/12/22 10:05 AK [id number] 08/12/22 10:08 AK Document 08/19/22 09:59 [id number] 08/19/22 10:10 KW Document 08/26/22 11:19 AK [id number] 08/26/22 11:29 AK 08/05/22 08/12/22 08/19/22 10:04 10:05 09:59 Wound Center Nurse 1 #3- L MED HEEL -Current Size (cm) - Length 0.1 -Current Size (cm) - Width 0.1 -Current Size (cm) - Depth 0.1 -Total Square Cm 0.01 -Photo Taken Yes -Epithelialization Large 67-100% -Tunneling No -Circular Undermining No -Exudate Amt None Present -Wound Margin Fibrotic Scar, Thickened Scar -Granulation Amt None Present (0 %) -Slough/Fibrin Yes -Necrosis Amt Large (67-100%) -Structure Exposed N/A -Texture (Hannah-wound Skin Appearance) Assessed,Callus -Moisture (Hannah-wound Skin Appearance) Assessed,Dry/ Scaly -Color (Hannah-wound Skin Appearance) Assessed -Temperature (Hannah-wound Skin No Abnormality Appearance) (Pt Warm) -Tenderness on Palpation (Hannah-wound No Skin Appearance) #2- R MED HEEL -Combined with other wound No No -Current Size (cm) - Length 0.4 0.4 -Current Size (cm) - Width 0.7 0.7 -Current Size (cm) - Depth 0.2 0.2 -Total Square Cm 0.28 0.28 -Date of Last Picture (Recall this field) -Photo Taken Yes Yes -Epithelialization Small 1-33% -Tunneling No No -Undermining/Tunneling No No -Circular Undermining No No -Change in Wound Grade/Stage No -Exudate Amt Small Medium -Exudate Type Serosanguineous Serosanguineous -Wound Margin Fibrotic Scar, Distinct, Thickened Scar Outline Attached -Granulation Amt Medium (34-66%) Medium (34-66%) -Granulation Quality [place] -Slough/Fibrin Yes Yes -Necrosis Amt Small (1-33%) Medium (34-66%) -Necrotic Tissue Type Adherent Slough -Structure Exposed N/A N/A -Texture (Hannah-wound Skin Appearance) Assessed,Callus Assessed Assessed ,Excoriation -Moisture (Hannah-wound Skin Appearance) Assessed,Dry/ No Abnormality, Assessed Scaly Assessed -Color (Hannah-wound Skin Appearance) Assessed No Abnormality, Assessed Assessed -Temperature (Hannah-wound Skin No Abnormality No Abnormality No Abnormality Appearance) (Pt Warm) (Pt Warm) (Pt Warm) -Tenderness on Palpation (Hannah-wound No No No Skin Appearance) -Ulcer Cleansing Rinsed/ Rinsed/ Rinsed/ Irrigated with Irrigated with Irrigated with Saline Saline Saline -Foul Odor after Cleansing No No -Anesthetic Used 5% Lidocaine 5% Lidocaine 5% Lidocaine Gel Gel Gel Lower Limb Edema Present Yes No Right Calf (cm) 48.6 46 Right Ankle (cm) 30.3 32 Left Calf (cm) 45 Left Ankle (cm) 29.3 08/26/22 11:19 Wound Center Nurse 1 #3- L MED HEEL -Current Size (cm) - Length -Current Size (cm) - Width -Current Size (cm) - Depth -Total Square Cm -Photo Taken -Epithelialization -Tunneling -Circular Undermining -Exudate Amt -Wound Margin -Granulation Amt -Slough/Fibrin -Necrosis Amt -Structure Exposed -Texture (Hannah-wound Skin Appearance) -Moisture (Hannah-wound Skin Appearance) -Color (Hannah-wound Skin Appearance) -Temperature (Hannah-wound Skin Appearance) -Tenderness on Palpation (Hannah-wound Skin Appearance) #2- R MED HEEL -Combined with other wound No -Current Size (cm) - Length 1 -Current Size (cm) - Width 2.1 -Current Size (cm) - Depth 0.1 -Total Square Cm 2.1 -Date of Last Picture (Recall this 08/26/22 field) -Photo Taken Yes -Epithelialization -Tunneling No -Undermining/Tunneling No -Circular Undermining No -Change in Wound Grade/Stage No -Exudate Amt Medium -Exudate Type Serosanguineous -Wound Margin Distinct, Outline Attached -Granulation Amt Medium (34-66%) -Granulation Quality [place] -Slough/Fibrin Yes -Necrosis Amt Medium (34-66%) -Necrotic Tissue Type Adherent Slough -Structure Exposed -Texture (Hannah-wound Skin Appearance) Assessed,Callus -Moisture (Hannah-wound Skin Appearance) Assessed,Dry/ Scaly -Color (Hannah-wound Skin Appearance) No Abnormality, Assessed -Temperature (Hannah-wound Skin No Abnormality Appearance) (Pt Warm) -Tenderness on Palpation (Hannah-wound No Skin Appearance) -Ulcer Cleansing Rinsed/ Irrigated with Saline -Foul Odor after Cleansing No -Anesthetic Used 5% Lidocaine Gel Lower Limb Edema Present Right Calf (cm) 48 Right Ankle (cm) 31 Left Calf (cm) Left Ankle (cm) WC - Nurse 2 - General Ulcer CM Notes Start: 08/05/22 10:03 Freq: Status: Active Protocol: Activity Type Activity Date Activity User E-sign Co-sign Detail Recorded Client Recorded Date Recorded By Document 08/05/22 12:20 PL [id number] 08/05/22 12:21 PL Document 08/12/22 12:39 PL [id number] 08/12/22 12:40 PL Document 08/19/22 12:10 PL [id number] 08/19/22 12:12 PL Document 08/26/22 12:21 PL [id number] 08/26/22 12:22 PL 08/05/22 08/12/22 08/19/22 12:20 12:39 12:10 Wound Center Nurse 2 #2- R MED HEEL -Time 10:29 10:04 10:16 -Correct Patient Yes Yes Yes -Correct Side, Site, Position Yes Yes Yes -Correct Procedure Yes Yes Yes -Procedure Performed Yes Yes Yes -Type of Procedure Debridement Debridement Debridement -Clinical Debridement Subcutaneous Subcutaneous Subcutaneous -Tissue Removed Subcutaneous Subcutaneous Dermis, Subcutaneous -Post Debridement (cm) - Length 1.2 0.9 1.0 -Post Debridement (cm) - Width 0.6 0.5 0.5 -Post Debridement (cm) - Depth 0.1 0.1 0.1 -Total Square (Post) (cm) 0.72 0.45 0.50 -Area of Debridement (cm) - Length 1.2 0.9 1.0 -Area of Debridement (cm) - Width 0.6 0.5 0.5 -Total Square (Area) (cm) 0.72 0.45 0.50 -Tunneling No No No -Undermining/Tunneling No No No -Circular Undermining No No No -Wound/Ulcer Outcome Not Healed Not Healed Not Healed -Ulcer Cleansing Rinsed/ Rinsed/ Rinsed/ Irrigated with Irrigated with Irrigated with Saline Saline Saline -Foul Odor after Cleansing No No No -Bioengineered Tissue No No No -Bleeding Controlled with Pressure Pressure Pressure -Treatment Response Procedure Procedure Procedure Tolerated Well Tolerated Well Tolerated Well -Debridement - Subq, 1st 20sq cm Yes Yes Yes Pain Scale: 0-10 Numeric Is Patient Pain Free? Yes Yes Yes 08/26/22 12:21 Wound Center Nurse 2 #2- R MED HEEL -Time 10:58 -Correct Patient Yes -Correct Side, Site, Position Yes -Correct Procedure Yes -Procedure Performed Yes -Type of Procedure Debridement -Clinical Debridement Subcutaneous -Tissue Removed Subcutaneous -Post Debridement (cm) - Length 0.8 -Post Debridement (cm) - Width 1.6 -Post Debridement (cm) - Depth 0.2 -Total Square (Post) (cm) 1.28 -Area of Debridement (cm) - Length 0.8 -Area of Debridement (cm) - Width 1.6 -Total Square (Area) (cm) 1.28 -Tunneling No -Undermining/Tunneling No -Circular Undermining No -Wound/Ulcer Outcome Not Healed -Ulcer Cleansing Rinsed/ Irrigated with Saline -Foul Odor after Cleansing No -Bioengineered Tissue No -Bleeding Controlled with Pressure -Treatment Response Procedure Tolerated Well -Debridement - Subq, 1st 20sq cm Yes Pain Scale: 0-10 Numeric Is Patient Pain Free? Yes - Nurse 3 - General Ulcer D/C NN Start: 08/05/22 10:03 Freq: Status: Active Protocol: Activity Type Activity Date Activity User E-sign Co-sign Detail Recorded Client Recorded Date Recorded By Document 08/05/22 11:19 JF [id number] 08/05/22 11:20 JF Document 08/12/22 10:12 AK [id number] 08/12/22 10:13 AK Document 08/19/22 12:10 PL [id number] 08/19/22 12:12 PL Document 08/26/22 11:15 KW [id number] 08/26/22 11:20 KW Document 08/27/22 13:55 MW [id number] 08/27/22 13:57 MW 08/05/22 08/12/22 08/19/22 11:19 10:12 12:10 Wound Care Center Nurse 3 #2- R MED HEEL -Ulcer Cleansing Rinsed/ Rinsed/ Rinsed/ Irrigated with Irrigated with Irrigated with Saline Saline Saline -Foul Odor after Cleansing No No No -Negative Pressure Wound Therapy N/A -Primary Dressing Applied Promogran Aquacel Extra, Suellen Matter Promogran -Other Dressing own suellen -Primary Dressing Covered/Secured with Dry Gauze Dry Gauze Dry Gauze & Roll Gauze, Secured with Tape -Other Covering -Aquacel Extra 1 -Aquacel AG 4x4 -Promogran 1 -Promogran Suellen Matter 1 Right -Lotion applied to leg before Yes compression wrap -Multi-Layered Wrap Application Multi-Layer Multi-Layer Multi-Layer Comp - Right ($ Comp - Right ($ Comp - Right ($ ) ) ) -Tubular Bandage -Size of Tubigrip Used -Size F ($) Treatment Response Vital Signs Temperature (97.8 F-99.1 F) Temperature Source Pulse Rate (60-100) Pulse Location Respiratory Rate (12-18) Respiratory rate source Oxygen Delivery Method Blood Pressure (90/60-120/80) Blood Pressure Mean (mm Hg) Source Position Blood Pressure Location Pain Scale: 0-10 Numeric Is Patient Pain Free? Yes Yes Yes WC - Visit Discharge Discharge Condition Stable Stable Stable Ambulatory Status Ambulatory,Cane Ambulatory,Cane Cane Transportation Private Auto Private Auto Private Auto Accompanied by Medication Reconcilliation completed & Yes Yes provided to patient/care provider Clinical Summary of Care Provided Yes Yes Notes: helps guide. PT is blind 08/26/22 08/27/22 11:15 13:55 Wound Care Center Nurse 3 #2- R MED HEEL -Ulcer Cleansing Rinsed/ Soap and Water Irrigated with Saline -Foul Odor after Cleansing No -Negative Pressure Wound Therapy N/A -Primary Dressing Applied Aquacel AG 4x4, Aquacel Extra, Promogran Promogran -Other Dressing -Primary Dressing Covered/Secured with Dry Gauze & Dry Gauze & Roll Gauze, Roll Gauze Secured with Tape -Other Covering ABD -Aquacel Extra 1 -Aquacel AG 4x4 1 -Promogran 1 1 -Promogran Suellen Matter Right -Lotion applied to leg before No Yes compression wrap -Multi-Layered Wrap Application Multi-Layer Comp - Right ($ ) -Tubular Bandage Single Layer -Size of Tubigrip Used Size F -Size F ($) 1 Treatment Response Procedure Tolerated Well Vital Signs Temperature (97.8 F-99.1 F) 97.2 F L Temperature Source Temporal Pulse Rate (60-100) 56 L Pulse Location Monitor Respiratory Rate (12-18) 20 H Respiratory rate source Observation Oxygen Delivery Method Room Air Blood Pressure (90/60-120/80) 128/49 H Blood Pressure Mean (mm Hg) 75 Source Monitor Position Sitting Blood Pressure Location Left Arm Pain Scale: 0-10 Numeric Is Patient Pain Free? Yes Yes WC - Visit Discharge Discharge Condition Stable Stable Ambulatory Status Cane Ambulatory,Cane Transportation Private Auto Private Auto Accompanied by Medication Reconcilliation completed & No No provided to patient/care provider Clinical Summary of Care Provided Yes Yes Notes: Assessment/Plan Assessment/Plan (1) Bilateral edema of lower extremity: CODE(S): R60.0 - Localized edema (2) Non-pressure chronic ulcer of other part of right foot with fat layer exposed: CODE(S): L97.512 - Non-pressure chronic ulcer of other part of right foot with fat layer exposed (3) Non-pressure chronic ulcer of other part of left foot with fat layer exposed: CODE(S): L97.522 - Non-pressure chronic ulcer of other part of left foot with fat layer exposed (4) Type 2 diabetes mellitus with diabetic polyneuropathy: CODE(S): E11.42 - Type 2 diabetes mellitus with diabetic polyneuropathy (5) Other specified peripheral vascular diseases: CODE(S): I73.89 - Other specified peripheral vascular diseases (6) Venous insufficiency: CODE(S): I87.2 - Venous insufficiency (chronic) (peripheral) (7) Essential hypertension: CODE(S): I10 - Essential (primary) hypertension (8) Hyperlipidemia: CODE(S): E78.5 - Hyperlipidemia, unspecified QUALIFIERS: Hyperlipidemia type: unspecified Qualified Code(s): E78.5 - Hyperlipidemia, unspecified (9) Delayed wound healing: CODE(S): T14.8XXD - Other injury of unspecified body region, subsequent encounter PLAN: Plan Patient seen and evaluated Reviewed previous vascular studies performed in 2020 which demonstrated great saphenous vein incompetency bilateral.? Discussed updating vascular studies both LEAS and venous.? Referral to vascular specialist, Dr. Lyman.? Patient does have nonpalpable DP and PT pulses with sluggish capillary fill time to the digits.? He does have triphasic Doppler bilateral. He is noted to have ulceration to the medial aspect of the right heel and the medial aspect of the left heel.? No signs of infection.? States that he believes the AFO braces have rubbed the inside of his heel creating the wound.? I did inspect his bilateral AFOs.? I however feel his excessive swelling has created the issue of rubbing in the brace.? Discussed recommending continued elevation of lower extremities at all times of rest and compression stockings to be worn daily.? If brace continues to rub following decrease of his edema it is recommended he return to [facility] for modification of the brace with offloading padding applied to the medial wall. Ulceration to the right heel was debrided as noted in the clinical panel above.? Ulceration left medial heel remains healed.? Right medial heel ulcer measures 0.9 cm x 0.5 cm x 0.1 cm.? No signs of infection.? There is improvement in maceration about the wound site today versus previous visit. Suellen applied to ulcer site with Aquacel Ag and Suprasorb and dry sterile dressing.? 3M compression wrap applied to right lower extremity.? He was instructed to not get the dressings wet. He will continue his compression stocking with juxta light compression wrap to the left lower extremity. Ulceration decreased in size from previous visit for right foot, Left foot ulceration remains healed. Discussed he must continue to elevate lower extremities at all times of rest. Despite 3M compression dressing I continue to feel he is not elevating as his swelling has remained relatively unchanged over these past few weeks. Discussed with him that this is hindering his wound healing progress. Discussed signs and symptoms of infection today.? Discussed if he notices any redness about the wound site moving up the leg, any purulent drainage, increasing foul odor, or if he experiences fever greater than 101 degree, nausea, vomiting, chills that he is to report to the ED as these are signs of a progressing infection.? He voices understanding of this. Discussed proper diabetic diet to ensure adequate control of blood sugars to aid wound healing.? Last A1c reported at 6.8%.? Patient reports blood sugars upon checks typically run in the 130's. The following work up and care recommendations were made: Dressing: Suellen and 3M compression wrap Wash: Do not get wet Tissue growth optimization: Suellen Offload: 3M compression wrap and elevation of lower extremities at all times of rest Vascular: Nonpalpable DP and PT pulses with sluggish capillary fill time.? Referral to Dr. Lyman, vascular specialist was made.? Recommend updating arterial and venous studies, as previous studies last performed 2020. Edema: 3M compression wrap and elevation of lower extremities at all times of rest Infection: No signs of infection Pain: May take Tylenol extra strength as needed. Host factors: DM type II with peripheral polyneuropathy, chronic venous insufficiency bilateral ? I answered all the patient's questions.? To return to the wound healing center in 1 week or call sooner if the patient has any questions or concerns.
== END 2022-09-03 23:59 | disposition home or self-care (01) ==
LOC: WC 10:15
PROVIDERS: PCP Internal Medicine; Referring Provider Podiatrist; Visit Provider Student in an Organized Health Care Education/Training Program
DX: E11.621 Type 2 diabetes mellitus with foot ulcer (principal); E11.51 Type 2 diabetes mellitus with diabetic peripheral angiopathy without gangrene; L97.412 Non-pressure chronic ulcer of right heel and midfoot with fat layer exposed; E11.42 Type 2 diabetes mellitus with diabetic polyneuropathy; I48.91 Unspecified atrial fibrillation; Z79.4 Long term (current) use of insulin; I87.2 Venous insufficiency (chronic) (peripheral); I10 Essential (primary) hypertension; E78.5 Hyperlipidemia, unspecified; R60.0 Localized edema; G47.00 Insomnia, unspecified; I89.0 Lymphedema, not elsewhere classified; H54.7 Unspecified visual loss; Z79.01 Long term (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 of anticoagulants; Z79.890 Hormone replacement therapy; Z79.899 Other long term (current) drug therapy
CPT/HCPCS: 11042; 29581

== ENCOUNTER → 2022-09-16 | Outpatient (CLI) | payer MEDICARE, OTHER, SELFPAY ==
[2022-09-15 13:18] VITALS: BP 137/69; PULSE 47; RESP 20; TEMP 36.6
--- NOTE | 2022-09-16 12:54 | ECHOD_ITS ---
Reason For Study: PAROXYSMAL AFIB Procedure This was a 2D Doppler, Color Flow transthoracic echocardiogram. Exam performed in department. Left Ventricle Normal LV size. Left ventricular systolic function is normal. The estimated ejection fraction is 55 %. Stage 2 diastolic dysfunction. No regional wall motion abnormalities noted. Right Ventricle Normal RV size. Normal systolic function. Atria The left atrium is mildly enlarged. Normal right atrium. Mitral Valve Normal mitral valve. Tricuspid Valve Normal tricuspid valve. Mild (1+) tricuspid valve insufficiency. Pulmonary artery systolic pressure is 30 mmHg. Aortic Valve Trisinus/trileaflet aortic valve. Pulmonic Valve The pulmonic valve is not well visualized. Great Vessels Mildly dilated aortic root. The pulmonary artery is normal size. Normal inferior vena cava. Pericardium/Pleural No pericardial effusion. MMode/2D Measurements & Calculations LVIDd: 6.0 cm IVSd: 1.1 cm Ao root diam: 4.0 cm LVIDs: 4.8 cm LVPWd: 0.99 cm RVDd: 3.9 cm FS: 19.9 % LAV(MOD-bp): 77.2 ml LVAd ap4: 39.1 cm2 LVAd ap2: 33.2 cm2 LAV(MOD-bp) Indexed: 31.6 ml/m2 LVLd ap4: 9.1 cm LVLd ap2: 8.5 cm LAV(MOD-sp2): 65.7 ml EDV(MOD-sp4): 139.8 ml EDV(MOD-sp2): 107.2 ml LAV(MOD-sp4): 78.7 ml EDV(sp4-el): 143.1 ml EDV(sp2-el): 109.7 ml LVAs ap4: 19.5 cm2 LVAs ap2: 19.4 cm2 LVLs ap4: 6.8 cm LVLs ap2: 7.2 cm ESV(MOD-sp4): 49.3 ml ESV(MOD-sp2): 43.8 ml ESV(sp4-el): 47.7 ml ESV(sp2-el): 44.4 ml EF(MOD-sp4): 64.7 % EF(MOD-sp2): 59.2 % EF(sp4-el): 66.7 % SV(MOD-sp4): 90.5 ml SV(MOD-sp2): 63.5 ml SV(sp4-el): 95.4 ml TAPSE: 2.4 cm LA A4 area: 23.6 cm2 RA A4 area: 18.2 cm2 Time Measurements MV dec time: 0.23 sec Doppler Measurements & Calculations MV E max davidson: 107.1 cm/sec Lat Peak E' Davidson: 11.0 cm/sec Med Peak E' Davidson: 9.4 cm/sec MV A max davidson: 76.1 cm/sec E/E' lat: 9.7 E/E' med: 11.4 MV E/A: 1.4 MV dec slope: 489.0 cm/sec2 Ao V2 max: 141.6 cm/sec LV V1 max: 115.1 cm/sec Ao max P.0 mmHg LV V1 max P.3 mmHg Ao V2 mean: 97.7 cm/sec LV V1 mean P.0 mmHg Ao mean P.4 mmHg LV V1 mean: 81.0 cm/sec Ao V2 VTI: 35.3 cm LV V1 VTI: 29.6 cm AV (velocity ratio): 0.84 PA V2 max: 108.8 cm/sec TR max davidson: 257.8 cm/sec PA V2 mean: 75.7 cm/sec TR max P.6 mmHg ECHO/Echo Complete Interpretation Summary Normal LV size. Left ventricular systolic function is normal. The estimated ejection fraction is 55 %. Stage 2 diastolic dysfunction. Pulmonary artery systolic pressure is 30 mmHg. Ordering Physician: She Tomlin Referring Physician: Angelia Conway Performed By: Sherri Harden, BURT, RVT
== END | disposition home or self-care (01) ==
LOC: CVS 12:53
PROVIDERS: PCP Internal Medicine; Referring Provider Physician Assistant Medical; Visit Provider Physician Assistant Medical
DX: I48.0 Paroxysmal atrial fibrillation (principal)
CPT/HCPCS: 93306

== ENCOUNTER 2022-09-23 11:00 | Outpatient (RCR) | payer MEDICARE, OTHER, SELFPAY ==
[2022-09-04 01:30] VITALS: BP 136/53; PULSE 48; RESP 18; TEMP 36.3; BMI 37.3
[2022-09-09 10:41] VITALS: BP 169/109; PULSE 67; TEMP 35.5; BMI 37.3
--- NOTE | 2022-09-09 13:02 | PN.PCM_ITS ---
History of Present Illness Date of Service: 09/09/22 Chief Complaint: Right foot ulcer History of Wound: This 76-year-old male with significant PMHx of diabetes type II with peripheral polyneuropathy, atrial fibrillation, hyperlipidemia, HTN, blindness, insomnia, history of acute renal failure, retinitis pigmentosa, Kaposi sarcoma right foot, and history of venous insufficiency with multiple procedural interventions was seen for right and left foot ulcer. Last seen by Dr. Moore, vascular specialist in 2020. Patient has not gone back for continued evaluation. Does have confirmed venous insufficiency of the great saphenous vein bilateral with bilateral lower extremity edema and lymphedema. He denies N/V/F/chills. He denies redness or odor to the foot bilateral. He is with his today. states that he had been following with Dr. Natalia Hernandez, [place].P.Aura in office following dispense of Sigvaris compression wrap and bilateral AFO braces made by [employer]. states that these braces have caused rubbing on the inside of the heel of both feet that had formed a blister and eventually broke open into a wound. States that they have not healed in the last month and Dr. Hernandez referred them to the wound care center for further evaluation. Subjective Subjective This is a 76-year-old male who presents to the wound care center today for follow-up of bilateral medial heel wounds.? He has kept his compression dressing s clean, dry, and intact to the bilateral lower leg.?He states he tries to keep legs up but cannot always do this as he often gets up and moves around. States he only elevates for a few hours out of the day. He denies any constitutional symptoms today.? Has no further complaints today. Objective Data Objective Data Vital Signs: Vital Signs Temp Pulse Resp BP 95.9 F L 67 18 169/109 H 09/09/22 10:41 09/09/22 10:41 09/04/22 01:30 09/09/22 10:41 Weight: 124.738 kg Body Mass Index (BMI) 37.3 Physical Exam Const alert, oriented x3, no apparent distress and well nourished General Appearance: cooperative HEENT normocephalic Eyes Eyes Narrative: Cataracts noted bilateral Neck General: normal visual inspection Lymph Lymphatic: no lymphadenopathy noted and no lymphedema noted Resp normal respiratory effort Cardio regular rate and regular rhythm Extremity normal capillary refill, no joint enlargement, no calf tenderness and no pedal edema Extremity Narrative: DP and PT pulses nonpalpable bilateral.? Capillary fill time is sluggish to the digits at 6 seconds bilateral.? Absent hair growth is noted bilateral.? Temperature gradient normal bilaterally. Musculoskeletal: There is some weakness in dorsiflexion of the right foot noted versus left foot.? Patient ambulates in bilateral AFO braces.? There is hammertoe deformity noted to be semiflexible to bilateral digits 2 through 5.? Decreased range of motion of the ankle joint in dorsiflexion with knee extended without pain or crepitus.? Decreased range of motion of the first MTPJ bilateral without pain or crepitus. Dermatological: There is bilateral edema noted to the lower extremities with venous stasis dermatitis to the anterior lower extremities.? There is also lymphedema and skin changes noted bilateral.? There is a superficial wound noted to the medial calcaneus right foot. Skin no rashes or lesions noted, skin turgor normal and no jaundice General Skin Exam: venous stasis and dermatitis Wound Narrative: Left lower extremity: Superficial wound secondary to previous blister at the medial calcaneus below the level of the malleoli has healed. No signs of infection Right lower extremity: Ulceration noted to the medial aspect of the calcaneus below the level of the malleoli.? No purulent drainage, no erythema, no malodor, no palpable fluctuance/bogginess, no visible abscess, no lymphangitic streaking. Neuro moves all extremities Neuro Narrative: Decreased protective sensation to bilateral foot consistent with peripheral polyneuropathy Debridement Note Debridement Note Wound debrided: Right medial heel Laterality: Right Wound Grade/Stage: [place] stage I Type of Debridement: Excisional debridement Anesthesia Used: 5% Lidocaine Gel Depth: Down to and including healthy tissue and in the subcutaneous layer Percentage of wound debrided: 100 Instrument Used: 3mm curette Tissue Removed: Fibrous, devitalized subcutaneous, biofilm, slough Severity: Fat Layer Exposed Amount of bleeding with debridement: Mild Bleeding Controlled with: Compression and gauze Patient tolerated procedure: Patient tolerated procedure well Post-Debridement Measurements and Additional Note: Post-Debridement Measurements/Treatment [place] - Nurse 1 - General Ulcer Assessment Start: 09/09/22 10:29 Freq: Status: Active Protocol: WC.LOWEXT Activity Type Activity Date Activity User E-sign Co-sign Detail Recorded Client Recorded Date Recorded By Document 09/09/22 10:41 MARY [id number] 09/09/22 10:43 MARY 09/09/22 10:41 - Today's Visit Information Type of service Follow-up Visit (Physician/DOCTOR'S ASSISTANT ) Arrival Mode Ambulatory,Cane Patient Identification Verified (Name & Yes ) Patient Requires Transmission-Based No Precautions Height and Weight Body Mass Index (BMI) 37.3 BMI Classification Obese Vital Signs Temperature (97.8 F-99.1 F) 95.9 F L Temperature Source Temporal Pulse Rate (60-100) 67 Pulse Location Monitor Blood Pressure (90/60-120/80) 169/109 H Blood Pressure Mean (mm Hg) 129 Source Monitor History Since Last Visit- (Skip if this is Patient's initial visit) Have you changed medications since your No last visit? Any new allergies or adverse reactions No Had a fall/change in ADL's that may No increase risk of falls Signs or symptoms of abuse and/or No neglect since last visit Have you been in the hospital since your No last visit? Has dressing in place as prescribed Yes Has compression in place as prescribed Yes Has offloadiing in place as prescribed N/A Experienced any changes in pain level or No management Left Footwear Regular Shoe Right Footwear Regular Shoe Pain Scale: 0-10 Numeric Is Patient Pain Free? Yes - Nurse 1 - General Ulcer Measurement Start: 09/09/22 10:29 Freq: Status: Active Protocol: Activity Type Activity Date Activity User E-sign Co-sign Detail Recorded Client Recorded Date Recorded By Document 09/09/22 10:41 MARY [id number] 09/09/22 10:43 MARY 09/09/22 10:41 Wound Center Nurse 1 #2- R MED HEEL -Combined with other wound No -Current Size (cm) - Length 0.2 -Current Size (cm) - Width 0.7 -Current Size (cm) - Depth 0.1 -Total Square Cm 0.14 -Date of Last Picture (Recall this 09/09/22 field) -Photo Taken Yes -Tunneling No -Undermining/Tunneling No -Circular Undermining No -Change in Wound Grade/Stage No -Exudate Amt Medium -Exudate Type Serosanguineous -Wound Margin Distinct, Outline Attached -Granulation Amt Medium (34-66%) -Granulation Quality [place] -Slough/Fibrin Yes -Necrosis Amt Medium (34-66%) -Necrotic Tissue Type Adherent Slough -Structure Exposed N/A -Texture (Hannah-wound Skin Appearance) Assessed,Callus -Moisture (Hannah-wound Skin Appearance) Assessed,Dry/ Scaly -Color (Hannah-wound Skin Appearance) No Abnormality, Assessed -Temperature (Hannah-wound Skin No Abnormality Appearance) (Pt Warm) -Tenderness on Palpation (Hannah-wound No Skin Appearance) -Ulcer Cleansing Rinsed/ Irrigated with Saline -Foul Odor after Cleansing No -Anesthetic Used 5% Lidocaine Gel Right Calf (cm) 48 Right Ankle (cm) 37 WC - Nurse 2 - General Ulcer CM Notes Start: 09/09/22 10:29 Freq: Status: Active Protocol: Activity Type Activity Date Activity User E-sign Co-sign Detail Recorded Client Recorded Date Recorded By Document 09/09/22 12:07 PL [id number] 09/09/22 12:08 PL 09/09/22 12:07 Wound Center Nurse 2 #2- R MED HEEL -Time 10:44 -Correct Patient Yes -Correct Side, Site, Position Yes -Correct Procedure Yes -Procedure Performed Yes -Type of Procedure Debridement -Clinical Debridement Subcutaneous -Tissue Removed Subcutaneous -Post Debridement (cm) - Length 0.4 -Post Debridement (cm) - Width 0.9 -Post Debridement (cm) - Depth 0.2 -Total Square (Post) (cm) 0.36 -Area of Debridement (cm) - Length 0.4 -Area of Debridement (cm) - Width 0.9 -Total Square (Area) (cm) 0.36 -Tunneling No -Undermining/Tunneling No -Circular Undermining No -Wound/Ulcer Outcome Not Healed -Ulcer Cleansing Rinsed/ Irrigated with Saline -Foul Odor after Cleansing No -Bioengineered Tissue No -Bleeding Controlled with Pressure -Treatment Response Procedure Tolerated Well -Debridement - Subq, 1st 20sq cm Yes Pain Scale: 0-10 Numeric Is Patient Pain Free? Yes [place] - Nurse 3 - General Ulcer D/C NN Start: 09/09/22 10:29 Freq: Status: Active Protocol: Activity Type Activity Date Activity User E-sign Co-sign Detail Recorded Client Recorded Date Recorded By Document 09/09/22 11:13 ALEC [id number] 09/09/22 11:14 ALEC 09/09/22 11:13 Wound Care Center Nurse 3 #2- R MED HEEL -Ulcer Cleansing Rinsed/ Irrigated with Saline -Primary Dressing Covered/Secured with Dry Gauze RT -Multi-Layered Wrap Application Multi-Layer Comp - Right ($ ) Pain Scale: 0-10 Numeric Is Patient Pain Free? Yes WC - Visit Discharge Discharge Condition Stable Ambulatory Status Ambulatory,Cane Transportation Private Auto Medication Reconcilliation completed & No provided to patient/care provider Clinical Summary of Care Provided Yes Assessment/Plan Assessment/Plan (1) Hyperlipidemia: CODE(S): E78.5 - Hyperlipidemia, unspecified QUALIFIERS: Hyperlipidemia type: unspecified Qualified Code(s): E78.5 - Hyperlipidemia, unspecified (2) Essential hypertension: CODE(S): I10 - Essential (primary) hypertension (3) Delayed wound healing: CODE(S): T14.8XXD - Other injury of unspecified body region, subsequent encounter (4) Venous insufficiency: CODE(S): I87.2 - Venous insufficiency (chronic) (peripheral) (5) Other specified peripheral vascular diseases: CODE(S): I73.89 - Other specified peripheral vascular diseases (6) Type 2 diabetes mellitus with diabetic polyneuropathy: CODE(S): E11.42 - Type 2 diabetes mellitus with diabetic polyneuropathy (7) Bilateral edema of lower extremity: CODE(S): R60.0 - Localized edema (8) Non-pressure chronic ulcer of other part of right foot with fat layer exposed: CODE(S): L97.512 - Non-pressure chronic ulcer of other part of right foot with fat layer exposed PLAN: Plan Patient seen and evaluated Reviewed previous vascular studies performed in 2020 which demonstrated great saphenous vein incompetency bilateral.? Discussed updating vascular studies both LEAS and venous.? Referral to vascular specialist, Dr. Lyman.? Patient does have nonpalpable DP and PT pulses with sluggish capillary fill time to the digits.? He does have triphasic Doppler bilateral. He is noted to have ulceration to the medial aspect of the right heel and the medial aspect of the left heel.? No signs of infection.? States that he believes the AFO braces have rubbed the inside of his heel creating the wound.? I did inspect his bilateral AFOs.? I however feel his excessive swelling has created the issue of rubbing in the brace.? Discussed recommending continued elevation of lower extremities at all times of rest and compression stockings to be worn daily.? If brace continues to rub following decrease of his edema it is recommended he return to [facility] for modification of the brace with offloading padding applied to the medial wall. Ulceration to the right heel was debrided as noted in the clinical panel above.? Ulceration left medial heel remains healed.? Right medial heel ulcer measures 0.4 cm x 0.9 cm x 0.1 cm.? No signs of infection.? There is continued improvement in maceration about the wound site today versus previous visit. Catherine applied to ulcer site with Aquacel Ag and Suprasorb and dry sterile dressing.? 3M compression wrap applied to right lower extremity.? He was instructed to not get the dressings wet. He will continue his compression stocking with juxta light compression wrap to the left lower extremity. Ulceration demonstrates little reduction in size from previous visit for right foot, Left foot ulceration remains healed. Discussed he must continue to elevate lower extremities at all times of rest. Despite 3M compression dressing I continue to feel he is not elevating as his swelling has remained relatively unchanged over these past few weeks. Discussed with him that this is hindering his wound healing progress. Discussed signs and symptoms of infection today.? Discussed if he notices any redness about the wound site moving up the leg, any purulent drainage, increasing foul odor, or if he experiences fever greater than 101 degree, nausea, vomiting, chills that he is to report to the ED as these are signs of a progressing infection.? He voices understanding of this. Discussed proper diabetic diet to ensure adequate control of blood sugars to aid wound healing.? Last A1c reported at 6.8%.? Patient reports blood sugars upon checks typically run in the 130's. The following work up and care recommendations were made: Dressing: Catherine and 3M compression wrap Wash: Do not get wet Tissue growth optimization: Catherine Offload: 3M compression wrap and elevation of lower extremities at all times of rest Vascular: Nonpalpable DP and PT pulses with sluggish capillary fill time.? Referral to Dr. Lyman, vascular specialist was made.? Recommend updating arterial and venous studies, as previous studies last performed 2020. Edema: 3M compression wrap and elevation of lower extremities at all times of rest Infection: No signs of infection Pain: May take Tylenol extra strength as needed. Host factors: DM type II with peripheral polyneuropathy, chronic venous insufficiency bilateral ? I answered all the patient's questions.? To return to the wound healing center in 2 weeks or call sooner if the patient has any questions or concerns.
--- NOTE | 2022-09-23 10:21 | PCM.WC.PN ---
History of Present Illness Date of Service: 09/23/22 Chief Complaint: Right foot ulcer History of Wound: This 76-year-old male with significant PMHx of diabetes type II with peripheral polyneuropathy, atrial fibrillation, hyperlipidemia, HTN, blindness, insomnia, history of acute renal failure, retinitis pigmentosa, Kaposi sarcoma right foot, and history of venous insufficiency with multiple procedural interventions was seen for right and left foot ulcer. Last seen by Dr. Moore, vascular specialist in 2020. Patient has not gone back for continued evaluation. Does have confirmed venous insufficiency of the great saphenous vein bilateral with bilateral lower extremity edema and lymphedema. He denies N/V/F/chills. He denies redness or odor to the foot bilateral. He is with his today. states that he had been following with Dr. Natalia Hernandez, [facility] in office following dispense of Sigvaris compression wrap and bilateral AFO braces made by [employer]. states that these braces have caused rubbing on the inside of the heel of both feet that had formed a blister and eventually broke open into a wound. States that they have not healed in the last month and Dr. Hernandez referred them to the wound care center for further evaluation. Subjective Subjective This is a 76-year-old male who presents to the wound care center today for follow-up of bilateral medial heel wounds.? He has kept his compression dressings clean, dry, and intact to the bilateral lower leg.?He states he tries to keep legs up but cannot always do this as he often gets up and moves around. States he only elevates for a few hours out of the day. states she noticed no drainage from the site over the last week. He denies any constitutional symptoms today.? Has no further complaints today. Objective Data Objective Data Vital Signs: Vital Signs Temp Pulse Resp BP 95.9 F L 67 18 169/109 H 09/09/22 10:41 09/09/22 10:41 09/04/22 01:30 09/09/22 10:41 Weight: 124.738 kg Body Mass Index (BMI) 37.3 Physical Exam Const alert, oriented x3, no apparent distress and well nourished General Appearance: cooperative HEENT normocephalic Eyes Eyes Narrative: Cataracts noted bilateral Neck General: normal visual inspection Lymph Lymphatic: no lymphadenopathy noted and no lymphedema noted Resp normal respiratory effort Cardio regular rate and regular rhythm Extremity normal capillary refill, no joint enlargement, no calf tenderness and no pedal edema Extremity Narrative: DP and PT pulses nonpalpable bilateral.? Capillary fill time is sluggish to the digits at 6 seconds bilateral.? Absent hair growth is noted bilateral.? Temperature gradient normal bilaterally. Musculoskeletal: There is some weakness in dorsiflexion of the right foot noted versus left foot.? Patient ambulates in bilateral AFO braces.? There is hammertoe deformity noted to be semiflexible to bilateral digits 2 through 5.? Decreased range of motion of the ankle joint in dorsiflexion with knee extended without pain or crepitus.? Decreased range of motion of the first MTPJ bilateral without pain or crepitus. Dermatological: There is bilateral edema noted to the lower extremities with venous stasis dermatitis to the anterior lower extremities.? There is also lymphedema and skin changes noted bilateral.? There is a superficial wound noted to the medial calcaneus right foot. Skin no rashes or lesions noted, skin turgor normal and no jaundice General Skin Exam: venous stasis and dermatitis Wound Narrative: Left lower extremity: Superficial wound secondary to previous blister at the medial calcaneus below the level of the malleoli has healed. No signs of infection Right lower extremity: Ulceration noted to the medial aspect of the calcaneus below the level of the malleoli.? No purulent drainage, no erythema, no malodor, no palpable fluctuance/bogginess, no visible abscess, no lymphangitic streaking. Neuro moves all extremities Neuro Narrative: Decreased protective sensation to bilateral foot consistent with peripheral polyneuropathy Debridement Note Debridement Note No debridement was completed: No debridement was completed today Post-Debridement Measurements and Additional Note: Post-Debridement Measurements/Treatment - Nurse 1 - General Ulcer Assessment Start: 09/09/22 10:29 Freq: Status: Active Protocol: [email or web address] Activity Type Activity Date Activity User E-sign Co-sign Detail Recorded Client Recorded Date Recorded By Document 09/09/22 10:41 MARY [id number] 09/09/22 10:43 MARY 09/09/22 10:41 - Today's Visit Information Type of service Follow-up Visit (Physician/[facility]RE[facility] ASSOCIATE ) Arrival Mode Ambulatory,Cane Patient Identification Verified (Name & Yes ) Patient Requires Transmission-Based No Precautions Height and Weight Body Mass Index (BMI) 37.3 BMI Classification Obese Vital Signs Temperature (97.8 F-99.1 F) 95.9 F L Temperature Source Temporal Pulse Rate (60-100) 67 Pulse Location Monitor Blood Pressure (90/60-120/80) 169/109 H Blood Pressure Mean (mm Hg) 129 Source Monitor History Since Last Visit- (Skip if this is Patient's initial visit) Have you changed medications since your No last visit? Any new allergies or adverse reactions No Had a fall/change in ADL's that may No increase risk of falls Signs or symptoms of abuse and/or No neglect since last visit Have you been in the hospital since your No last visit? Has dressing in place as prescribed Yes Has compression in place as prescribed Yes Has offloadiing in place as prescribed N/A Experienced any changes in pain level or No management Left Footwear Regular Shoe Right Footwear Regular Shoe Pain Scale: 0-10 Numeric Is Patient Pain Free? Yes WC - Nurse 1 - General Ulcer Measurement Start: 09/09/22 10:29 Freq: Status: Active Protocol: Activity Type Activity Date Activity User E-sign Co-sign Detail Recorded Client Recorded Date Recorded By Document 09/09/22 10:41 MARY [id number] 09/09/22 10:43 MARY 09/09/22 10:41 Wound Center Nurse 1 #2- R MED HEEL -Combined with other wound No -Current Size (cm) - Length 0.2 -Current Size (cm) - Width 0.7 -Current Size (cm) - Depth 0.1 -Total Square Cm 0.14 -Date of Last Picture (Recall this 09/09/22 field) -Photo Taken Yes -Tunneling No -Undermining/Tunneling No -Circular Undermining No -Change in Wound Grade/Stage No -Exudate Amt Medium -Exudate Type Serosanguineous -Wound Margin Distinct, Outline Attached -Granulation Amt Medium (34-66%) -Granulation Quality [place] -Slough/Fibrin Yes -Necrosis Amt Medium (34-66%) -Necrotic Tissue Type Adherent Slough -Structure Exposed N/A -Texture (Hannah-wound Skin Appearance) Assessed,Callus -Moisture (Hannah-wound Skin Appearance) Assessed,Dry/ Scaly -Color (Hannah-wound Skin Appearance) No Abnormality, Assessed -Temperature (Hannah-wound Skin No Abnormality Appearance) (Pt Warm) -Tenderness on Palpation (Hannah-wound No Skin Appearance) -Ulcer Cleansing Rinsed/ Irrigated with Saline -Foul Odor after Cleansing No -Anesthetic Used 5% Lidocaine Gel Right Calf (cm) 48 Right Ankle (cm) 37 WC - Nurse 2 - General Ulcer CM Notes Start: 09/09/22 10:29 Freq: Status: Active Protocol: Activity Type Activity Date Activity User E-sign Co-sign Detail Recorded Client Recorded Date Recorded By Document 09/09/22 12:07 PL [id number] 09/09/22 12:08 PL 09/09/22 12:07 Wound Center Nurse 2 #2- R MED HEEL -Time 10:44 -Correct Patient Yes -Correct Side, Site, Position Yes -Correct Procedure Yes -Procedure Performed Yes -Type of Procedure Debridement -Clinical Debridement Subcutaneous -Tissue Removed Subcutaneous -Post Debridement (cm) - Length 0.4 -Post Debridement (cm) - Width 0.9 -Post Debridement (cm) - Depth 0.2 -Total Square (Post) (cm) 0.36 -Area of Debridement (cm) - Length 0.4 -Area of Debridement (cm) - Width 0.9 -Total Square (Area) (cm) 0.36 -Tunneling No -Undermining/Tunneling No -Circular Undermining No -Wound/Ulcer Outcome Not Healed -Ulcer Cleansing Rinsed/ Irrigated with Saline -Foul Odor after Cleansing No -Bioengineered Tissue No -Bleeding Controlled with Pressure -Treatment Response Procedure Tolerated Well -Debridement - Subq, 1st 20sq cm Yes Pain Scale: 0-10 Numeric Is Patient Pain Free? Yes - Nurse 3 - General Ulcer D/C NN Start: 09/09/22 10:29 Freq: Status: Active Protocol: Activity Type Activity Date Activity User E-sign Co-sign Detail Recorded Client Recorded Date Recorded By Document 09/09/22 11:13 KW [id number] 09/09/22 11:14 KW 09/09/22 11:13 Wound Care Center Nurse 3 #2- R MED HEEL -Ulcer Cleansing Rinsed/ Irrigated with Saline -Primary Dressing Covered/Secured with Dry Gauze RT -Multi-Layered Wrap Application Multi-Layer Comp - Right ($ ) Pain Scale: 0-10 Numeric Is Patient Pain Free? Yes WC - Visit Discharge Discharge Condition Stable Ambulatory Status Ambulatory,Cane Transportation Private Auto Medication Reconcilliation completed & No provided to patient/care provider Clinical Summary of Care Provided Yes Assessment/Plan Assessment/Plan (1) Hyperlipidemia: CODE(S): E78.5 - Hyperlipidemia, unspecified QUALIFIERS: Hyperlipidemia type: unspecified Qualified Code(s): E78.5 - Hyperlipidemia, unspecified (2) Essential hypertension: CODE(S): I10 - Essential (primary) hypertension (3) Delayed wound healing: CODE(S): T14.8XXD - Other injury of unspecified body region, subsequent encounter (4) Venous insufficiency: CODE(S): I87.2 - Venous insufficiency (chronic) (peripheral) (5) Other specified peripheral vascular diseases: CODE(S): I73.89 - Other specified peripheral vascular diseases (6) Type 2 diabetes mellitus with diabetic polyneuropathy: CODE(S): E11.42 - Type 2 diabetes mellitus with diabetic polyneuropathy (7) Bilateral edema of lower extremity: CODE(S): R60.0 - Localized edema (8) Non-pressure chronic ulcer of other part of right foot with fat layer exposed: CODE(S): L97.512 - Non-pressure chronic ulcer of other part of right foot with fat layer exposed PLAN: Plan Patient seen and evaluated Reviewed previous vascular studies performed in 2020 which demonstrated great saphenous vein incompetency bilateral.? Discussed updating vascular studies both LEAS and venous.? Referral to vascular specialist, Dr. Lyman.? Patient does have nonpalpable DP and PT pulses with sluggish capillary fill time to the digits.? He does have triphasic Doppler bilateral. He is noted to have ulceration to the medial aspect of the right heel and the medial aspect of the left heel.? No signs of infection.? States that he believes the AFO braces have rubbed the inside of his heel creating the wound.? I did inspect his bilateral AFOs.? I however feel his excessive swelling has created the issue of rubbing in the brace.? Discussed recommending continued elevation of lower extremities at all times of rest and compression stockings to be worn daily.? If brace continues to rub following decrease of his edema it is recommended he return to [facility] for modification of the brace with offloading padding applied to the medial wall. Ulceration to the right heel was debrided as noted in the clinical panel above.? Ulceration left medial heel remains healed.? Right medial heel ulcer has healed today.? No signs of infection.? He will continue his compression stocking with juxta light compression wrap to the bilateral lower extremity. Ulceration demonstrates improvement with healed status today, Left foot ulceration remains healed. Discussed dressing site with dry sterile dressing and the skin is still fragile for the next 7 to 10 days and to wear compression stocking to both lower extremities. He and his voiced understanding of this today. Discussed he must continue to elevate lower extremities at all times of rest. Discussed signs and symptoms of infection today.? Discussed if he notices any redness about the wound site moving up the leg, any purulent drainage, increasing foul odor, or if he experiences fever greater than 101 degree, nausea, vomiting, chills that he is to report to the ED as these are signs of a progressing infection.? He voices understanding of this. Discussed proper diabetic diet to ensure adequate control of blood sugars to aid wound healing.? Last A1c reported at 6.8%.? Patient reports blood sugars upon checks typically run in the 130's. The following work up and care recommendations were made: Dressing: Dry sterile dressing next 7 to 10 days with compression stocking Wash: Soap and water Tissue growth optimization: None Offload: Compression stocking and elevation of lower extremities at all times of rest Vascular: Nonpalpable DP and PT pulses with sluggish capillary fill time.? Referral to Dr. Lyman, vascular specialist was made.? Recommend updating arterial and venous studies, as previous studies last performed 2020. Edema: Compression stockings and elevation of lower extremities at all times of rest Infection: No signs of infection Pain: May take Tylenol extra strength as needed. Host factors: DM type II with peripheral polyneuropathy, chronic venous insufficiency bilateral ? I answered all the patient's questions.? To return to the wound healing center in 2 weeks or call sooner if the patient has any questions or concerns.
[2022-09-23 11:11] VITALS: BP 136/66; PULSE 69; TEMP 35.9; BMI 37.3
== END 2022-10-04 23:59 | disposition home or self-care (01) ==
LOC: WC 11:00
PROVIDERS: PCP Internal Medicine; Referring Provider Podiatrist; Visit Provider Student in an Organized Health Care Education/Training Program
DX: E11.621 Type 2 diabetes mellitus with foot ulcer (principal); E11.51 Type 2 diabetes mellitus with diabetic peripheral angiopathy without gangrene; L97.412 Non-pressure chronic ulcer of right heel and midfoot with fat layer exposed; E11.42 Type 2 diabetes mellitus with diabetic polyneuropathy; I48.91 Unspecified atrial fibrillation; Z79.4 Long term (current) use of insulin; I89.0 Lymphedema, not elsewhere classified; I10 Essential (primary) hypertension; R60.0 Localized edema; E78.5 Hyperlipidemia, unspecified; I87.2 Venous insufficiency (chronic) (peripheral); G47.00 Insomnia, unspecified; Z79.01 Long term (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 of anticoagulants; Z79.890 Hormone replacement therapy; Z79.899 Other long term (current) drug therapy
CPT/HCPCS: 11042; 29581; 99213; G0463

== ENCOUNTER 2022-10-07 10:46 | Outpatient (RCR) | payer MEDICARE, OTHER, SELFPAY ==
[2022-10-05 00:20] VITALS: BP 136/66; PULSE 69; RESP 18; TEMP 35.9; BMI 37.3
[2022-10-07 10:50] VITALS: BP 143/71; PULSE 54; RESP 20; TEMP 36.4; BMI 37.3
--- NOTE | 2022-10-07 11:06 | PCM.WC.PN ---
History of Present Illness Date of Service: 10/07/22 Chief Complaint: Right foot ulcer History of Wound: This 76-year-old male with significant PMHx of diabetes type II with peripheral polyneuropathy, atrial fibrillation, hyperlipidemia, HTN, blindness, insomnia, history of acute renal failure, retinitis pigmentosa, Kaposi sarcoma right foot, and history of venous insufficiency with multiple procedural interventions was seen for right and left foot ulcer. Last seen by Dr. Moore, vascular specialist in 2020. Patient has not gone back for continued evaluation. Does have confirmed venous insufficiency of the great saphenous vein bilateral with bilateral lower extremity edema and lymphedema. He denies N/V/F/chills. He denies redness or odor to the foot bilateral. He is with his today. states that he had been following with Dr. Natalia Hernandez, [place].P.Aura in office following dispense of Sigvaris compression wrap and bilateral AFO braces made by [employer]. states that these braces have caused rubbing on the inside of the heel of both feet that had formed a blister and eventually broke open into a wound. States that they have not healed in the last month and Dr. Hernandez referred them to the wound care center for further evaluation. Subjective Subjective This is a 76-year-old male who presents to the wound care center today for follow-up of bilateral medial heel wounds.? He has kept his compression dressings clean, dry, and intact to the bilateral lower leg.?He states he tries to keep legs up but cannot always do this as he often gets up and moves around. States he only elevates for a few hours out of the day. states she noticed no drainage from the site over the last week and believes the wound has remained healed. He denies any constitutional symptoms today.? Has no further complaints today. Objective Data Objective Data Vital Signs: Vital Signs Temp Pulse Resp BP 97.5 F L 54 L 20 H 143/71 H 10/07/22 10:50 10/07/22 10:50 10/07/22 10:50 10/07/22 10:50 Weight: 124.738 kg Body Mass Index (BMI) 37.3 Physical Exam Const alert, oriented x3, no apparent distress and well nourished General Appearance: cooperative HEENT normocephalic Eyes General Eye: normal appearance of both eyes Neck General: normal visual inspection Lymph Lymphatic: no lymphadenopathy noted and no lymphedema noted Resp normal respiratory effort Cardio regular rate and regular rhythm Extremity normal capillary refill, no joint enlargement, no calf tenderness and no pedal edema Extremity Narrative: DP and PT pulses nonpalpable bilateral.? Capillary fill time is sluggish to the digits at 6 seconds bilateral.? Absent hair growth is noted bilateral.? Temperature gradient normal bilaterally. Musculoskeletal: There is some weakness in dorsiflexion of the right foot noted versus left foot.? Patient ambulates in bilateral AFO braces.? There is hammertoe deformity noted to be semiflexible to bilateral digits 2 through 5.? Decreased range of motion of the ankle joint in dorsiflexion with knee extended without pain or crepitus.? Decreased range of motion of the first MTPJ bilateral without pain or crepitus. Dermatological: There is bilateral edema noted to the lower extremities with venous stasis dermatitis to the anterior lower extremities.? There is also lymphedema and skin changes noted bilateral.? There is a superficial wound noted to the medial calcaneus right foot. Skin no rashes or lesions noted, skin turgor normal and no jaundice General Skin Exam: venous stasis and dermatitis Wound Narrative: Left lower extremity: Superficial wound secondary to previous blister at the medial calcaneus below the level of the malleoli has healed. No signs of infection Right lower extremity: Ulceration noted to the medial aspect of the calcaneus below the level of the malleoli.? No purulent drainage, no erythema, no malodor, no palpable fluctuance/bogginess, no visible abscess, no lymphangitic streaking. Neuro moves all extremities Neuro Narrative: Decreased protective sensation to bilateral foot consistent with peripheral polyneuropathy Debridement Note Debridement Note No debridement was completed: No debridement was completed today Post-Debridement Measurements and Additional Note: Post-Debridement Measurements/Treatment [place] - Nurse 1 - General Ulcer Assessment Start: 10/07/22 10:50 Freq: Status: Active Protocol: JORGE Activity Type Activity Date Activity User E-sign Co-sign Detail Recorded Client Recorded Date Recorded By Document 10/07/22 10:50 DL [id number] 10/07/22 10:57 DL 10/07/22 10:50 - Today's Visit Information Type of service Follow-up Visit (Physician/GRANT ADMINISTRATOR ) Arrival Mode Wheelchair Transfer Assistance Manual Transfer Assist (Other) x2 Height and Weight Body Mass Index (BMI) 37.3 BMI Classification Obese Vital Signs Temperature (97.8 F-99.1 F) 97.5 F L Temperature Source Temporal Pulse Rate (60-100) 54 L Pulse Location Monitor Respiratory Rate (12-18) 20 H Respiratory rate source Observation Blood Pressure (90/60-120/80) 143/71 H Blood Pressure Mean (mm Hg) 95 Source Monitor History Since Last Visit- (Skip if this is Patient's initial visit) Have you changed medications since your No last visit? Any new allergies or adverse reactions No Had a fall/change in ADL's that may No increase risk of falls Signs or symptoms of abuse and/or No neglect since last visit Have you been in the hospital since your No last visit? Has dressing in place as prescribed Yes Has compression in place as prescribed N/A Has offloadiing in place as prescribed No Experienced any changes in pain level or No management Pain Scale: 0-10 Numeric Is Patient Pain Free? Yes WC - Nurse 1 - General Ulcer Measurement Start: 10/07/22 10:50 Freq: Status: Active Protocol: Activity Type Activity Date Activity User E-sign Co-sign Detail Recorded Client Recorded Date Recorded By Document 10/07/22 10:50 DL [id number] 10/07/22 10:57 DL 10/07/22 10:50 Wound Center Nurse 1 #2- R MED HEEL -Current Size (cm) - Length 0.1 -Current Size (cm) - Width 0.1 -Current Size (cm) - Depth 0.1 -Total Square Cm 0.01 -Photo Taken Yes -Exudate Amt None Present -Wound Margin Thickened -Granulation Amt Small (1-33%) -Granulation Quality [place] -Necrosis Amt Small (1-33%) -Necrotic Tissue Type Adherent Slough -Structure Exposed N/A -Texture (Hannah-wound Skin Appearance) Scarring -Moisture (Hannah-wound Skin Appearance) No Abnormality -Color (Hannah-wound Skin Appearance) No Abnormality -Temperature (Hannah-wound Skin No Abnormality Appearance) (Pt Warm) -Tenderness on Palpation (Hannah-wound No Skin Appearance) -Ulcer Cleansing Rinsed/ Irrigated with Saline -Foul Odor after Cleansing No -Anesthetic Used 5% Lidocaine Gel Right Calf (cm) 49 Right Ankle (cm) 31.6 Assessment/Plan Assessment/Plan (1) Hyperlipidemia: CODE(S): E78.5 - Hyperlipidemia, unspecified QUALIFIERS: Hyperlipidemia type: unspecified Qualified Code(s): E78.5 - Hyperlipidemia, unspecified (2) Essential hypertension: CODE(S): I10 - Essential (primary) hypertension (3) Delayed wound healing: CODE(S): T14.8XXD - Other injury of unspecified body region, subsequent encounter (4) Venous insufficiency: CODE(S): I87.2 - Venous insufficiency (chronic) (peripheral) (5) Other specified peripheral vascular diseases: CODE(S): I73.89 - Other specified peripheral vascular diseases (6) Type 2 diabetes mellitus with diabetic polyneuropathy: CODE(S): E11.42 - Type 2 diabetes mellitus with diabetic polyneuropathy (7) Non-pressure chronic ulcer of other part of left foot with fat layer exposed: CODE(S): L97.522 - Non-pressure chronic ulcer of other part of left foot with fat layer exposed (8) Non-pressure chronic ulcer of other part of right foot with fat layer exposed: CODE(S): L97.512 - Non-pressure chronic ulcer of other part of right foot with fat layer exposed (9) Bilateral edema of lower extremity: CODE(S): R60.0 - Localized edema PLAN: Plan Patient seen and evaluated Reviewed previous vascular studies performed in 2020 which demonstrated great saphenous vein incompetency bilateral.? Discussed updating vascular studies both LEAS and venous.? Referral to vascular specialist, Dr. Lyman.? Patient does have nonpalpable DP and PT pulses with sluggish capillary fill time to the digits.? He does have triphasic Doppler bilateral. He is noted to have ulceration to the medial aspect of the right heel and the medial aspect of the left heel.? No signs of infection.? States that he believes the AFO braces have rubbed the inside of his heel creating the wound.? I did inspect his bilateral AFOs.? I however feel his excessive swelling has created the issue of rubbing in the brace.? Discussed recommending continued elevation of lower extremities at all times of rest and compression stockings to be worn daily.? If brace continues to rub following decrease of his edema it is recommended he return to [facility] for modification of the brace with offloading padding applied to the medial wall. Ulceration to the right heel was debrided as noted in the clinical panel above.? Ulceration left medial heel remains healed.? Right medial heel ulcer remains healed.? No signs of infection.? He will continue his compression stocking with juxta light compression wrap to the bilateral lower extremity. Ulceration demonstrates improvement with healed status today, Left foot ulceration remains healed. Discussed continuing dressing site with dry sterile dressing and the skin is still fragile for the next 7 to 10 days and to wear compression stocking to both lower extremities. He and his voiced understanding of this today. Discussed he must continue to elevate lower extremities at all times of rest. Discussed signs and symptoms of infection today.? Discussed if he notices any redness about the wound site moving up the leg, any purulent drainage, increasing foul odor, or if he experiences fever greater than 101 degree, nausea, vomiting, chills that he is to report to the ED as these are signs of a progressing infection.? He voices understanding of this. Discussed proper diabetic diet to ensure adequate control of blood sugars to aid wound healing.? Last A1c reported at 6.8%.? Patient reports blood sugars upon checks typically run in the 130's. The following work up and care recommendations were made: Dressing: Dry sterile dressing next 7 to 10 days with compression stocking Wash: Soap and water Tissue growth optimization: None Offload: Compression stocking and elevation of lower extremities at all times of rest Vascular: Nonpalpable DP and PT pulses with sluggish capillary fill time.? Referral to Dr. Lyman, vascular specialist was made.? Recommend updating arterial and venous studies, as previous studies last performed 2020. Edema: Compression stockings and elevation of lower extremities at all times of rest Infection: No signs of infection Pain: May take Tylenol extra strength as needed. 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 Hernandez. ? I answered all the patient's questions.? To return to the wound healing center as needed or call sooner if the patient has any questions or concerns.
== END 2022-10-08 15:03 | disposition home or self-care (01) ==
LOC: WC 10:46
PROVIDERS: PCP Internal Medicine; Referring Provider Podiatrist; Visit Provider Student in an Organized Health Care Education/Training Program
DX: E11.621 Type 2 diabetes mellitus with foot ulcer (principal); E11.51 Type 2 diabetes mellitus with diabetic peripheral angiopathy without gangrene; L97.412 Non-pressure chronic ulcer of right heel and midfoot with fat layer exposed; E11.42 Type 2 diabetes mellitus with diabetic polyneuropathy; Z79.4 Long term (current) use of insulin; G47.00 Insomnia, unspecified; I89.0 Lymphedema, not elsewhere classified; R60.0 Localized edema; I10 Essential (primary) hypertension; E78.5 Hyperlipidemia, unspecified; I87.2 Venous insufficiency (chronic) (peripheral); Z79.01 Long term (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 of anticoagulants; Z79.890 Hormone replacement therapy; Z79.899 Other long term (current) drug therapy; H54.7 Unspecified visual loss; M20.41 Other hammer toe(s) (acquired), right foot; M20.42 Other hammer toe(s) (acquired), left foot
CPT/HCPCS: 99213; G0463

== ENCOUNTER 2022-10-15 21:16 | Observation (INO) | payer MEDICARE, OTHER, SELFPAY ==
[2022-10-15 21:17] VITALS: BP 157/103; PULSE 75; RESP 15; TEMP 36.9; O2SAT 96; BMI 40.0
--- NOTE | 2022-10-15 21:32 | CT_ITS ---
INDICATION: abd pain s/p vlad today A radiation dose optimization technique was used for this scan. COMPARISON: Chest radiograph same day. Abdominal CT 07/21/2022 and 07/11/2020. IV Contrast dosage and agent: 100mL [id number] IV. Radiation CTDIvol 40.15 Radiation DLP 2028.47 FINDINGS: Contrast enhanced serial CT axial images of the abdomen and pelvis with coronal and sagittal reformatted series. Multilevel motion artifact. PANCREAS: No peripancreatic fat stranding. BOWEL/MESENTERY: No dilated bowel loops. No significant free fluid. No free air. Colonic diverticulosis without focus of diverticulitis. APPENDIX: Normal caliber appendix, although appear somewhat truncated. ABDOMINAL WALL: Anterior and right upper quadrant abdominal wall umbilical laparoscopy ports. GALLBLADDER: Absent gallbladder with streaky fluid and few foci of gas within the gallbladder fossa. A few additional tiny foci of scattered free air and minimal fluid tracking along the right paracolic gutter, consistent with expected post procedure change. No definite focal organized fluid collection to suggest abscess. LIVER/STOMACH: No obvious abnormality. URINARY COLLECTING SYSTEM/ KIDNEYS: No obstructing ureteral calculus. Bilateral hypoattenuating renal lesions, some of which have increased in size and do not measure simple fluid attenuation compared with 2 years prior, measuring up to 3 cm at the left lower renal pole. Distended urinary bladder. Enlarged prostate. LUNG BASES: Streaky bibasilar atelectasis with mild elevation the right hemidiaphragm. 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 BONES: Lumbar orthopedic susie and pedicle screw construct, without obvious hardware complication. CT/Abdomen/Pelvis W IV Cont ONLY IMPRESSION: Enlarged prostate with distended urinary bladder consistent with urinary bladder outlet obstruction. Expected recent postcholecystectomy change as above. Bilateral hypoattenuating renal lesions, some of which have increased in size and do not measure simple fluid attenuation compared with 2 years prior, measuring up to 3 cm at the left lower renal pole. Although these likely represent mildly complex proteinaceous or milk of calcium cysts, which also can increase in size over time, recommend dedicated nonemergent follow-up renal ultrasound to better characterize as solid neoplastic process is not excluded. Streaky bibasilar atelectasis with mild elevation the right hemidiaphragm. Electronically Signed: Andrew Rich MD at 0:07 EDT ,
--- NOTE | 2022-10-15 21:43 | CT_ITS ---
INDICATION: ALOC EXAMINATION: CT BRAIN - CT Head or Brain W/O Contrast Injection TECHNIQUE: Serial CT axial images were obtained of the head without intravenous contrast. A radiation dose optimization technique was used for this scan. COMPARISON: None. Findings: Serial CT axial images of the head without contrast. BRAIN PARENCHYMA: Diffuse periventricular hypoattenuation likely chronic white matter ischemic changes. Moderate diffuse volume loss. No evidence of intraparenchymal hemorrhage or hyperattenuating extra-axial fluid collection. VASCULAR STRUCTURES: Atherosclerotic vascular calcifications. BONES: Diffuse sinus nodular mucosal thickening with complete opacification of frontal sinuses and multiple ethmoid air cells. SCALP/REMAINING SOFT TISSUES: Unremarkable. ASPECTS Score for Acute Strokes, if applicable: 10 CT/Brain/Head without Contrast IMPRESSION: Age-related changes as above, without evidence of acute intracranial hemorrhage in this noncontrast head CT. Pansinus disease. Electronically Signed: Andrew Rich MD at 23:42 EDT ,
--- NOTE | 2022-10-15 21:44 | ED.VIS.GI ---
HPI HPI - GI History of Present Illness Chief Complaint: Abd Pain Informant: patient and spouse/S.O. Abdominal Pain/Flank Pain Onset: Today Location: Diffuse Current Severity: Mild Maximum Severity: Mild Worsened by: Nothing Relieved by: Nothing Nausea/Vomiting/Emesis GI Symptom: Positive for Nausea and Vomiting Onset: Today Severity: Mild Diarrhea/Melena/Hematochezia GI Symptom: Negative for Diarrhea, Melena or Hematochezia Associated Symptoms Associated Symptoms: Negative for Dysuria, Frequency or Hematuria Narrative Narrative: 76-year-old male significant his medical history of A-fib, chronic kidney disease, diabetes. Typically is on Eliquis has been held because he had laparoscopic cholecystectomy done today by Dr. Juanjo Ambrose at [facility]. Patient was discharged around 1:00. When he said he had trouble getting in the house. Okay if patient been sitting in a chair since she got him back home. He started having nausea vomiting. Generalized weakness and shaking. Just was not feeling well. Patient is legally blind. Prior similar symptoms: No Recent Illness/Hospitalization: No PFSH PFSH Medical History Acute renal failure Chronic back pain Essential hypertension Frequent PVCs GERD (gastroesophageal reflux disease) Hyperlipidemia Hypothyroidism Insomnia Legal blindness Osteoarthritis Paroxysmal atrial fibrillation Renal insufficiency Retinitis pigmentosa Sepsis Type II diabetes mellitus UTI (urinary tract infection) Home Medications cyanocobalamin (vitamin B-12) 1,000 mcg/mL injection solution 100 mcg IM Q30D PRN Fatigue 08/21/13 [History Last Taken Unknown] enalapril maleate 10 mg tablet 10 mg PO DAILY 08/21/13 [History Last Taken 04/16/20] gabapentin 800 mg tablet 800 mg PO 4XD 08/21/13 [History Last Taken 10/25/14 04:00] omeprazole 40 mg capsule,delayed release 40 mg PO DAILY 08/21/13 [History Last Taken 10/25/14 04:00] atorvastatin 80 mg tablet 80 mg PO QHS 07/25/14 [History Last Taken Unknown] carisoprodol 350 mg tablet 350 mg PO TID PRN Muscle Spasm 09/13/18 [History Last Taken Unknown] finasteride 5 mg tablet 1 tab PO DAILY 01/23/20 [History Last Taken Unknown] hydrocodone 10 mg-acetaminophen 325 mg tablet 1 tab PO 4X/DAY 01/23/20 [History Last Taken Unknown] levothyroxine 25 mcg tablet 25 mcg PO DAILY 01/23/20 [History Last Taken 04/16/20] cholecalciferol (vitamin D3) 125 mcg (5,000 unit) capsule 125 mcg PO DAILY 04/11/20 [History Last Taken Unknown] furosemide 40 mg tablet 40 - 80 mg PO DAILY 04/11/20 [History Last Taken Unknown] jjynehhs-yr-nyjjx 300 mcg-K 60 mcg-lycop 600 mcg-lutein 300 mcg tablet 1 each PO DAILY 06/18/20 [History Last Taken Unknown] apixaban 5 mg tablet (Eliquis) 5 mg PO BID 07/02/20 [History Last Taken Unknown] ferrous sulfate 325 mg (65 mg iron) tablet 325 mg PO DAILY 07/15/22 [History Last Taken Unknown] insulin aspart U-100 100 unit/mL (3 mL) subcutaneous pen (Novolog FlexPen U-100 Insulin aspart) 30 unit subcut TID 08/26/22 [History Last Taken Unknown] Allergy/AdvReac Type Severity Reaction Status Date / Time Sulfa (Sulfonamide Allergy Shortness Verified 10/15/22 21:27 Antibiotics) of breath Gadolinium-MRI Contrast AdvReac Vomiting Verified 10/15/22 21:27 Medium [MRI] Family History Sister Cancer ovarian Mother CVA (cerebral vascular accident) Diabetes Father Cancer malignant melanona, bladder Brother Myocardial infarction Brother Myocardial infarction Brother Lung cancer Surgical History History of arthroscopy of knee History of carpal tunnel surgery of left wrist History of cataract extraction History of discectomy History of elbow surgery History of left heart catheterization (04/16/20) History of spinal fusion History of surgery on wrist History of thumb surgery History of transurethral resection of prostate History of vein stripping Hx of cholecystectomy Social History household members: spouse and other details: nephew Smoking Status: Former smoker Tobacco: How many years used: 10 how long ago did patient quit smokin years ago alcohol intake: never substance use type: does not use caffeine: Yes Type: carbonated beverages Number of servings: 5 what type of physical activity do you participate in: none seatbelt use: always do you feel safe at home: Yes ROS ROS ED ROS Narrative Nausea vomiting. Abdominal pain. Review of Systems ROS Unobtainable: Denies due to encephalopathy Constitutional Constitutional ED: Denies chills or fever(s) ENT ENT ED: Denies ear pain Cardiovascular Cardiovascular: Denies chest pain Respiratory/Chest Respiratory/Chest: Denies cough or dyspnea Gastrointestinal Gastrointestinal: Reports abdominal pain, nausea and vomiting; Denies constipation, diarrhea or melena Genitourinary Genitourinary ED: Denies dysuria or hematuria Musculoskeletal Musculoskeletal: Denies arthralgias, back pain or myalgias Integumentary Denies abscess or Abrasions Neurologic Neurologic: Denies headache(s) Psychiatric Psychiatric: Denies anxiety or depression Endocrine Endocrinology: Denies polydipsia Hematologic/Lymphatic Hematologic/Lymphatic: Denies easy bleeding Allergic/Immunologic Allergic/Immunologic ED: Denies mouth swelling or tongue swelling EXAM Physical Exam Narrative Exam Narrative: Severe male vital signs stable afebrile. Does not look septic toxic. Eyes are closed he does open them he is legally blind. at bedside. H EENT exam unremarkable neck midline. No trauma. Neck nontender. Lungs clear. Heart regular rhythm no murmur. Abdomen soft, dry and clean laparoscopic incisions. No bleeding or signs of infection. Abdomen mildly tender typical postop exam. No peritoneal signs. No signs of obstruction. Moving all 4 extremities. He has 1-2+ pitting edema both lower extremities which is chronic. Neurologically he does open his eyes. He seems generally weak. Legally blind. He is hard to arouse. He answers very few questions and his is basically given the history. Const Vital Signs: 10/15/22 21:17 Temperature 98.5 F Temperature Source Temporal Pulse Rate 75 Respiratory Rate 15 Blood Pressure 157/103 H Blood Pressure Mean 121 Pulse Ox 96 Oxygen Delivery Method Room Air Positive well nourished, well developed and obese; Negative for cachectic, contractures or unkempt General Appearance ED: well developed, NAD and pallor; Negative for unkempt, cachectic or contractures Nutritional Appearance: obese; Negative for cachectic HEENT Reports moist mucous membranes normocephalic and atraumatic; Negative for trauma or tenderness Eyes PERRL and EOMs intact bilaterally General Eye ED: Negative for pale conjunctiva, scleral icterus or other Neck no lymphadenopathy, supple and no JVD General: Negative for tenderness Carotids: Negative for other Lymph Lymphatic: Negative for other Resp normal respiratory effort and clear to auscultation bilaterally Effort and Inspection: Negative for respiratory distress Auscultation: Negative for rales, rhonchi or wheezes Cardio regular rhythm, S1 normal heart sound, S2 normal heart sound and no murmurs Rate: Negative for bradycardia or tachycardic Rhythm: Negative for abnormal rhythm GI non-distended and no masses; Negative for non-tender GI Narrative: Well-healing laparoscopic incisions. Dry and clean. Inspection: Negative for abdominal distention Auscultation: normoactive bowel sounds Palpation: soft and tender; Negative for guarding, rigid, hepatomegaly, splenomegaly, hernia, mass or rebound tenderness present Back/Spine no CVA tenderness General Back: Negative for CVA tenderness Cervical Spine: Negative for cervical spine tenderness Thoracic Spine / Upper Back: Negative for thoracic spinal tenderness Lumbar Spine / Lower Back: Negative for lumbar spinal tenderness Extremity full ROM General Extremety ED: Yes edema; Negative for tenderness General Extremity: edema Neuro moves all extremities Sensorium / Orientation: alert, oriented to person, orientation impaired, confused and lethargic; Negative for oriented to place or oriented to time Motor Exam: general weakness Psych mental status grossly normal Appearance: Negative for unkempt Mood & Affect: Negative for depressed, anxious or tearful Skin no wounds General Skin Exam: pallor; Negative for jaundice Lesions: no lesions Rashes: no rashes Trauma: Negative for abrasion Nails: Negative for discolored MDM MDM MDM Narrative Medical decision making narrative: Diabetic wound male who had laparoscopic cholecystectomy done today [facility]. Basically now she is generally weak not feeling well with nausea and vomiting. Count of the depressed overall mental status. CAT scan of his head will be obtained due to his history of being on Eliquis even though it was held for the surgery. Screening labs and a CT scan of his abdomen pelvis due to his surgery today. History & Record Review Discussion w/independent historian: Patient Additional record(s) reviewed:: Prior inpatient record, Prior outpatient record, Prior ED visit and Prior labs Lab Data Attestation: I reviewed the patient's lab results. Lab results narrative: CBC shows no elevated white count of 16.8. H&H of 13.5 and 43. Platelets 234. Electrolytes show a gap of 4. BUN of 15 creatinine 1.39. Glucose 175. Liver enzymes normal. Lipase at 13. Chest x-ray shows no acute process. Labs: Laboratory Results - last 24 hr 10/15/22 10/15/22 21:24 21:47 WBC 16.8 H RBC 4.42 L Hgb 13.5 Hct 43.1 MCV 97.5 H MCH 30.5 MCHC 31.3 L RDW Std Deviation 44.9 H RDW Coeff of King 12.6 Plt Count 234 MPV 12.0 Immature Gran % (Auto) 0.600 Neut % (Auto) 79.3 H Lymph % (Auto) 13.5 L Rich % (Auto) 6.4 Eos % (Auto) 0.0 Baso % (Auto) 0.2 Absolute Neuts (auto) 13.3 H Absolute Lymphs (auto) 2.26 Nucleated RBC % 0 Sodium 139 Potassium 4.5 Chloride 107 Carbon Dioxide 28.0 Anion Gap 4 L BUN 15 Creatinine 1.39 H Estim Creat Clear Calc 50.40 Est GFR (MDRD) Af Amer 64 Est GFR (MDRD) Non-Af 53 L BUN/Creatinine Ratio 10.8 Glucose 175 H Calcium 9.8 Total Bilirubin 0.80 AST 29 ALT 27 Alkaline Phosphatase 106 Total Protein 7.1 Albumin 3.3 Globulin 3.8 Albumin/Globulin Ratio 0.9 Lipase 13 POC Glucose 175 H Radiography Chest X-Ray - ED: 1 View, Read by ED Physician, Heart, Lungs, Mediastinum, Bony Structures, No Acute Disease and Chronic Changes Diagnostic Testing: Chest x-ray, portable, single view shows chronic changes no acute process. Interpreted by myself. Rhythm Strip Rhythm Strip: Sinus Rhythm Rate: 72 Ectopy: PVC(s) EKG Initial EKG: Attestation: I personally reviewed and interpreted this EKG as follows: Interpretation: Sinus Rhythm and No Acute Injury Pattern Comments: Normal sinus rhythm rate of 72 no acute signs of [place] or ischemia. Occasional PVCs. Discharge Plan Triage Chief Complaint: Abd Pain ED Provider: Lavon Palma Dx/Rx/DC Orders Prescriptions: No Action hydrocodone-acetaminophen 10-325 mg tablet 1 tab PO 4X/DAY finasteride 5 mg tablet 1 tab PO DAILY levothyroxine 25 mcg tablet 25 mcg PO DAILY cholecalciferol (vitamin D3) 125 mcg (5,000 unit) capsule 125 mcg PO DAILY furosemide 40 mg tablet 40 - 80 mg PO DAILY Patient Comments: WATER PILL Eliquis 5 mg tablet 5 mg PO BID insulin aspart U-100 [Novolog FlexPen U-100 Insulin] 100 unit/mL (3 mL) insulin pen 30 unit subcut TID enalapril maleate 10 MG tablet 10 mg PO DAILY Patient Comments: BLOOD PRESSURE omeprazole 40 MG capsule 40 mg PO DAILY Patient Comments: ACID REFLUX gabapentin 800 MG tablet 800 mg PO 4XD Patient Comments: NERVE PAIN cyanocobalamin (vitamin B-12) 1,000 MCG/ML solution 100 mcg IM Q30D PRN (Reason: Fatigue) Patient Comments: SUPPLEMENT carisoprodol 350 mg tablet 350 mg PO TID PRN (Reason: Muscle Spasm) Patient Comments: MUSCLE RELAXANT atorvastatin 80 MG tablet 80 mg PO QHS Patient Comments: CHOLESTEROL [id number] 1 EACH tablet 1 each PO DAILY ferrous sulfate 325 mg (65 mg iron) Tablet 325 mg PO DAILY Primary Care Provider: Angelia Conway Referrals: Angelia Conway DO [Primary Care Provider] -
--- NOTE | 2022-10-15 21:49 | EKG12_ITS ---
Test Reason : Dysrhythmia Blood Pressure : / mmHG Vent. Rate : 072 BPM Atrial Rate : 072 BPM P-R Int : 140 ms QRS Dur : 092 ms QT Int : 390 ms P-R-T Axes : 000 -24 -07 degrees QTc Int : 427 ms Sinus rhythm with occasional Premature ventricular complexes Minimal voltage criteria for LVH, may be normal variant ( R in aVL ) Cannot rule out Anterior infarct , age undetermined Abnormal ECG Confirmed by JIAN MCLAIN, MATTY ([id number]), managing editor MESSI ROTHMAN ([id number]) on 10/18/2022 8:45:20 AM Referred By: Marva Curtis Confirmed By:KEELEY VILLAR MD
[2022-10-15 22:08] LABS: Absolute Lymphocyte Count 2.26 X10^3/uL (0.83-4.51); Absolute Neutrophil Count 13.3 X10^3/uL (2.0-7.7); Basophil# 0.03 X10^3/uL; Basophil% 0.2 % (0-1); Hematocrit 43.1 % (40-54); Hemoglobin 13.5 g/dL (13.0-16.5); Lymphocyte # 2.26 X10^3/ul (0.83-4.51); Lymphocyte % 13.5 % (19-41); Mean Corp Hgb Conc 31.3 g/dL (32-36); Mean Corpuscular Hgb 30.5 pg (27.0-32.0); Mean Corpuscular Volume 97.5 fL (80-94); Monocyte# 1.07 X10^3/uL; Monocyte% 6.4 % (0-10); NRBC Flagged by Analyzer 0 % (0-5); Neutrophil # 13.32 X10^3/uL (2.7-7.7); Neutrophil % 79.3 % (47-70); Platelet Count 234 K/mm3 (150-450); RBC Distribution Width CV 12.6 % (11.6-14.6); RBC Distribution Width SD 44.9 fl (35.1-43.9); Red Blood Count 4.42 M/mm3 (4.6-6.2); White Blood Count 16.8 K/mm3 (4.4-11.0)
[2022-10-15 22:10] LABS: Bedside Glucose 175 mg/dL (74-106)
[2022-10-15 22:26] LABS: ALB/GLOB Ratio 0.9 RATIO (0.9-2.4); AST(SGOT) 29 U/L (15-37); Alanine Aminotransfer ALT/SGPT 27 U/L (16-61); Albumin, Serum 3.3 g/dL (3.2-5.0); Alkaline Phosphatase 106 U/L (45-117); Anion Gap 4 (5-15); BUN 15 mg/dL (7-18); BUN/Creat Ratio 10.8 RATIO (10-20); Calcium,Total 9.8 mg/dL (8.5-10.1); Chloride 107 mmol/L (98-107); Creatinine, Serum 1.39 mg/dL (0.70-1.30); EST Glomerular Filtration Rate 53 mL/min (>60); Est Glom Filt Rate - Afr Amer 64 mL/min (>60); Globulin 3.8 g/dL (2.2-4.2); Glucose 175 mg/dL (74-106); Lipase 13 U/L (13-75); Potassium 4.5 mmol/L (3.5-5.1); Protein, Total 7.1 g/dL (6.4-8.2); Sodium Level 139 mmol/L (136-145)
--- NOTE | 2022-10-15 22:36 | RAD_ITS ---
INDICATION: weakness EXAMINATION/TECHNIQUE: X-RAY - XR Chest 1 View COMPARISON: Chest radiograph 04/11/2020. Findings: Single frontal view of the chest. Low lung volumes. LUNG PARENCHYMA: Streaky right basilar airspace disease. PLEURA: Elevation of the right hemidiaphragm somewhat increased from comparison gatica gatica No pleural effusion. No pneumothorax. HEART/GREAT VESSELS: Cardiomediastinal silhouette is unremarkable. BONES: Stable central humeral head sclerotic lesion with arcs and swirls consistent with chondroid lesion, likely enchondroma, stable from at least 2 1/2 years prior. RAD/Chest 1 View (Portable) IMPRESSION: Low lung volumes with streaky right lung base atelectasis versus other airspace disease. Consider dedicated PA and lateral chest radiographs, with attention to inspiratory effort, patient is able. Electronically Signed: Andrew Rich MD at 23:39 EDT ,
[2022-10-15 23:12] VITALS: BP 155/82; PULSE 73; RESP 15; O2SAT 99
[2022-10-15 23:14] LABS: Bacteria 0 SEEN /hpf (None Seen); Mucous, Urine 0 SEEN /hpf (<or=2+); Squamous Epithelial Cells - UA 0 SEEN /hpf (0-5); White Blood Cells 0 SEEN /hpf (0-5)
[2022-10-15 23:16] LABS: Color, Urine Yellow (Yellow); Glucose, Dipstick 100 mg/dl (Normal); Ketone-Dipstick 5 mg/dl (Negative); Leukocyte Esterase-Dipstick Negative /ul (Negative); Nitrite-Dipstick Negative (Negative); Occult Blood-Urine 25 /ul (Negative); Protein-Dipstick 100 mg/dl (Negative); Urine Clarity Clear (Clear); Urine Urobilinogen Normal (Normal)
[2022-10-15 23:23] LABS: Urine Bilirubin Dipstick 3 mg/dL (Negative)
[2022-10-15 23:24] LABS: Red Blood Cells-Urine 0-5 SEEN /hpf (0-5)
--- NOTE | 2022-10-15 23:28 | PCM.HP.STD ---
HPI - General General Date of Admission: 10/15/22 Date of Service: 10/15/22 Chief Complaint: Encephalopathic, Adult FTT s/p recent outpatient cholecystectomy. HPI Narrative The patient is a 76 y/o M w/ PMHx: Morbid obesity, Hypothyroidism, HTN, HLD, Chronic back pain, Diabetes mellitus type II, PAF, Legal blindness with Retinitis pigmentosa, GERD, Hx Frequent PVCs, Chronic BL LE venous stasis disease/lymphedema and Chronic diabetic heel ulcers being followed outpatient, Chronic anemia/Fe deficiency anemia who presents to the [facility] ED on 10/15/22 with history of recent outpatient laparoscopic cholecystectomy in [facility] [place] by Dr. Ambrose with discharge to home following however patient's has had significant difficulty caring for him, even getting him into their home and he has been very fatigued and lethargic prompting her to bring him into the ED for evaluation. She denies any fever, chills, nausea, emesis, diarrhea, dysuria although patient does admit to abdominal discomfort but he is very lethargic and is not the best historian. Work-up in the ED included T98.3, heart rate 74, BP 155/82, respiratory rate 18, 98% on room air, CBC with WBC 16.8, hemoglobin 13.5, platelet 234 with left shift, VBG with bicarb 28 otherwise not marked appearing, CMP with BUN/creatinine 15/1.39, anion gap 4, glucose 175 otherwise unremarkable, hepatic profile normal, lipase 13, urinalysis with specific remedy 1.020, protein 100, glucose 100, ketone 5, occult blood 25, negative nitrite, negative leukocyte Estrace with no obvious evidence of UTI, chest x-ray with low lung volumes with streaky right lung base atelectasis versus other airspace disease, CT the brain with age-related changes with no acute evidence of acute intracranial findings, CT abdomen and pelvis with evidence of enlarged prostate with distended urinary bladder consistent with urinary bladder outlet obstruction, expected recent postcholecystectomy changes, bilateral hypoattenuating renal lesions some of which have increased in size compared to 2 years prior measuring up to 3 cm at the left lower renal pole likely mildly complex proteinaceous or milk of calcium cysts however recommend follow-up nonemergent renal ultrasound to better characterize, streaky bilateral bibasilar atelectasis otherwise no acute intra-abdominal findings. [facility] Medical History Acute renal failure Chronic back pain Essential hypertension Frequent PVCs GERD (gastroesophageal reflux disease) Hyperlipidemia Hypothyroidism Insomnia Legal blindness Osteoarthritis Paroxysmal atrial fibrillation Renal insufficiency Retinitis pigmentosa Sepsis Type II diabetes mellitus UTI (urinary tract infection) Home Medications cyanocobalamin (vitamin B-12) 1,000 mcg/mL injection solution 100 mcg IM Q30D PRN Fatigue 08/21/13 [History Last Taken Unknown] enalapril maleate 10 mg tablet 10 mg PO DAILY 08/21/13 [History Last Taken 04/16/20] gabapentin 800 mg tablet 800 mg PO 4XD 08/21/13 [History Last Taken 10/25/14 04:00] omeprazole 40 mg capsule,delayed release 40 mg PO DAILY 08/21/13 [History Last Taken 10/25/14 04:00] atorvastatin 80 mg tablet 80 mg PO QHS 07/25/14 [History Last Taken Unknown] carisoprodol 350 mg tablet 350 mg PO TID PRN Muscle Spasm 09/13/18 [History Last Taken Unknown] finasteride 5 mg tablet 1 tab PO DAILY 01/23/20 [History Last Taken Unknown] hydrocodone 10 mg-acetaminophen 325 mg tablet 1 tab PO 4X/DAY 01/23/20 [History Last Taken Unknown] levothyroxine 25 mcg tablet 25 mcg PO DAILY 01/23/20 [History Last Taken 04/16/20] cholecalciferol (vitamin D3) 125 mcg (5,000 unit) capsule 125 mcg PO DAILY 04/11/20 [History Last Taken Unknown] furosemide 40 mg tablet 40 - 80 mg PO DAILY 04/11/20 [History Last Taken Unknown] mprefscd-iw-qtmci 300 mcg-K 60 mcg-lycop 600 mcg-lutein 300 mcg tablet 1 each PO DAILY 06/18/20 [History Last Taken Unknown] apixaban 5 mg tablet (Eliquis) 5 mg PO BID 07/02/20 [History Last Taken Unknown] ferrous sulfate 325 mg (65 mg iron) tablet 325 mg PO DAILY 07/15/22 [History Last Taken Unknown] insulin aspart U-100 100 unit/mL (3 mL) subcutaneous pen (Novolog FlexPen U-100 Insulin aspart) 30 unit subcut TID 08/26/22 [History Last Taken Unknown] Allergy/AdvReac Type Severity Reaction Status Date / Time Sulfa (Sulfonamide Allergy Shortness Verified 10/15/22 21:27 Antibiotics) of breath Gadolinium-MRI Contrast AdvReac Vomiting Verified 10/15/22 21:27 Medium [MRI] Family History Sister Cancer ovarian Mother CVA (cerebral vascular accident) Diabetes Father Cancer malignant melanona, bladder Brother Myocardial infarction Brother Myocardial infarction Brother Lung cancer Surgical History History of arthroscopy of knee History of carpal tunnel surgery of left wrist History of cataract extraction History of discectomy History of elbow surgery History of left heart catheterization (04/16/20) History of spinal fusion History of surgery on wrist History of thumb surgery History of transurethral resection of prostate History of vein stripping Hx of cholecystectomy Social History household members: spouse and other details: nephew Smoking Status: Former smoker Tobacco: How many years used: 10 how long ago did patient quit smokin years ago alcohol intake: never substance use type: does not use caffeine: Yes Type: carbonated beverages Number of servings: 5 what type of physical activity do you participate in: none seatbelt use: always do you feel safe at home: Yes ROS Review of Systems ROS Unobtainable: due to encephalopathy Vital Signs Vital Signs Vital Signs: 10/15/22 21:17 10/15/22 23:12 Temperature 98.5 F Temperature Source Temporal Pulse Rate 75 73 Respiratory Rate 15 15 Blood Pressure 157/103 H 155/82 H Blood Pressure Mean 121 106 Pulse Ox 96 99 Oxygen Delivery Method Room Air Room Air Weight Weight: 294 lb 15.656 oz Body Mass Index (BMI) 40.0 Physical Exam Narrative Physical Examination: General: Awakens to stimuli, will intermittently become alert but will fall back asleep quickly, unable to appropriately answer orientation questions, follows some commands but irritated especially with attempts for ABG, laying in the ED bed, sleeping comfortably. Skin: Normal color, normal turgor, no icterus, no cyanosis except for significant bilateral lower extremity venous stasis skin changes as well as chronic diabetic heel ulcers in addition to abdominal trocar incisions from recent cholecystectomy with dressings in place with no drainage. HEENT: AT/NC, EOMI, PERRLA, dry MM, no carotid bruits or JVD noted. Lungs: Diminished, greater bases, appropriate effort, distant breath sounds given habitus, no rales, ronchi or wheezing. Heart: Regular rate and rhythm; no gallop, rub audible. Abdomen: Soft, expected generalized discomfort with palpation given recent cholecystectomy, dressings in place with no marked drainage, difficult to discern distention because of his habitus but suspect likely mildly distended with mild tympany, mildly hypoactive bowel sounds, difficult to assess HSM given morbidly obese habitus. Extremities: No cyanosis, no clubbing, significant bilateral lower extremity lymphedema, see skin Neurological: Awakens to stimuli, will intermittently become alert but will fall back asleep quickly, unable to appropriately answer orientation questions, follows some commands but irritated especially with attempts for ABG, laying in the ED bed, sleeping comfortably, cognitive function not baseline intact; pupils equally reactive to light and accommodation, cranial nerves appear grossly normal but with encephalopathy difficult evaluation, moving extremities spontaneously, strength severely globally decreased secondary to acute presentation. Psychiatric: Affect appears flat, fatigued, no acute evidence of depressive or anxiety feelings. Results Lab / Micro Data 10/15/22 21:24 10/15/22 21:24 Labs: Laboratory Results - last 24 hr 10/15/22 21:24: WBC 16.8 H, RBC 4.42 L, Hgb 13.5, Hct 43.1, MCV 97.5 H, MCH 30.5, MCHC 31.3 L, RDW Std Deviation 44.9 H, RDW Coeff of [place] 12.6, Plt Count 234, MPV 12.0, Immature Gran % (Auto) 0.600, Neut % (Auto) 79.3 H, Lymph % (Auto) 13.5 L, [place] % (Auto) 6.4, Eos % (Auto) 0.0, Baso % (Auto) 0.2, Absolute Neuts (auto) 13.3 H, Absolute Lymphs (auto) 2.26, Nucleated RBC % 0, Sodium 139, Potassium 4.5, Chloride 107, Carbon Dioxide 28.0, Anion Gap 4 L, BUN 15, Creatinine 1.39 H, Estim Creat Clear Calc 50.40, Est GFR (MDRD) Af Amer 64, Est GFR (MDRD) Non-Af 53 L, BUN/Creatinine Ratio 10.8, Glucose 175 H, Calcium 9.8, Total Bilirubin 0.80, AST 29, ALT 27, Alkaline Phosphatase 106, Total Protein 7.1, Albumin 3.3, Globulin 3.8, Albumin/Globulin Ratio 0.9, Lipase 13 10/15/22 21:47: POC Glucose 175 H 10/15/22 23:05: Urine Color Yellow, Urine Clarity Clear, Urine pH 5.0, Ur Specific [place] 1.020, Urine Protein 100 H, Urine Glucose (UA) 100 H, Urine Ketones 5 H, Urine Occult Blood 25 H, Urine Nitrite Negative, Urine Bilirubin 3 H, Urine Urobilinogen Normal, Ur Leukocyte Esterase Negative, Urine RBC 0-5 SEEN, Urine WBC 0 SEEN, Ur Squamous Epith Cells 0 SEEN, Urine Bacteria 0 SEEN, Urine Mucus 0 SEEN Rhythm Strip Rhythm Strip: Sinus Rhythm Rate: 72 Ectopy: PVC(s) Assessment & Plan Assessment/Plan (1) Adult failure to thrive: PLAN: Plan The patient is a 76 y/o M w/ PMHx: Morbid obesity, Hypothyroidism, HTN, HLD, Chronic back pain, Diabetes mellitus type II, PAF, Legal blindness with Retinitis pigmentosa, GERD, Hx Frequent PVCs, Chronic BL LE venous stasis disease/lymphedema and Chronic diabetic heel ulcers being followed outpatient, Chronic anemia/Fe deficiency anemia who presents to the [facility] ED on 10/15/22 with history of recent outpatient laparoscopic cholecystectomy in my [place] by Dr. Ambrose with discharge to home following however patient's has had significant difficulty caring for him, even getting him into their home and he has been very fatigued and lethargic prompting her to bring him into the ED for evaluation. #1. Adult FTT, Acute Encephalopathy unclear etiology, possibly secondary to recent narcotics/anesthetics noemy-operatively: Given inability to safely return to home and unable to care for self as well as encephalopathy will admit to medical surgical floor, will maintain on fall precautions, will trend CBC and CMP, will request procalcitonin, will request ammonia level to be cautious, patient did not tolerate ABG attempts but VBG is not marked appearing, as long as clinically improving will allow oral intake, will judiciously hydrate, PT/OT/case management consulted for discharge planning as patient likely will need skilled placement. #2. Diabetes mellitus type II with chronic neuropathy: Hold oral home regimen, continue home insulin regimen, ADA diet as reports that he is allowed to tolerate a normal diet, accu checks w/ ISS, continue home gabapentin regimen as long as mental status is improving. #3. Chronic macrocytic anemia/iron deficiency anemia: Admission hemoglobin 13.5, MCV 97.5 baseline hemoglobin noted prior most recently 10/15/22 Hgb 13.5 and prior to this 08/26/22 Hgb 11.4, will continue to trend. #4. Hypertension: Continue home regimen including Lasix, enalapril, PRN hydralazine. #5. Hyperlipidemia: We will continue patient on statin therapy. #6. PAF: We will continue patient home apixaban regimen, per current list although clarifying not on rate or rhythm agent. #7. Hypothyroidism: We will continue patient on levothyroxine regimen #8. Morbid Obesity: Weight loss and lifestyle changes encouraged. #9. History retinitis pigmentosa with chronic legal blindness: Maintain on fall precautions, case management/PT/OT consulted for discharge planning. #10. Chronic bilateral lower extremity lymphedema/venous stasis: We will place snug Kd wraps with elevation. #11. Chronic bilateral lower extremity heel ulcers: Encourage continued aggressive outpatient follow-up with her pals nurse. #12. BPH: We will continue patient home finasteride chronic regimen. Will straight catheterize if necessary. #13. GERD: We will continue patient on PPI. #14. DVT prophylaxis: We will continue patient home apixaban regimen. #15. CODE status: Patient does not have healthcare power of banking attorney nor living will in place but his was present would be his decision-maker if he could not. Discussed CODE status at length including difference between FULL code, DNR-CCA and DNR-CC status. Following discussions about the differences in these status, requested DNR-CCA no intubation status. Advanced Care Planning Face to Face Time: 16 minutes. Charges/Coding Visit Charges Inpatient E&M: 98036 Init Hosp L2 Procedures Hospitalists Procedures: 62280 Advncd Care Plan 30 Min
[2022-10-16 00:14] LABS: Blood Gas Specimen Type VEN; O2 Delivery Device Room Air; VBG BASE EXCESS 2 mmol/L (-1.0-3.5); VBG Bicarbonate 28 mmol/L (22-26); VBG PO2 26 mmHg (25-40); VBG SO2 43 % (50-70); VBG TCO2 29 mmol/L (23-33); VBG pCO2 50.4 mmHg (41-51); VBG pH 7.35 (7.32-7.42)
[2022-10-16 00:30] VITALS: BP 155/82; PULSE 74; RESP 18; TEMP 36.8; O2SAT 98
[2022-10-16 01:08] VITALS: BMI 40.2
[2022-10-16 01:45] VITALS: RESP 18; TEMP 37.1
--- NOTE | 2022-10-16 01:57 | NURSING ---
pt combative, punching & kicking staff-took 3 staff to get an attends on pt due to incontinent of urine, pt refused bp, lab draw, any assessment even with explanation and encouragement. pt pulling at iv. pt refuses abd binder. charge gang weigher will update dr. will stay with pt. reports he has been confused in past after surgery. primary rn aware.
[2022-10-16 06:52] LABS: Absolute Lymphocyte Count 2.02 X10^3/uL (0.83-4.51); Absolute Neutrophil Count 11.9 X10^3/uL (2.0-7.7); Basophil# 0.03 X10^3/uL; Basophil% 0.2 % (0-1); Hematocrit 38.7 % (40-54); Hemoglobin 12.4 g/dL (13.0-16.5); Lymphocyte # 2.02 X10^3/ul (0.83-4.51); Lymphocyte % 13.4 % (19-41); Mean Corpuscular Volume 96.8 fL (80-94); Mean Platelet Vol. 11.6 fl (6.2-12.0); Monocyte# 1.09 X10^3/uL; Monocyte% 7.2 % (0-10); NRBC Flagged by Analyzer 0 % (0-5); Neutrophil # 11.87 X10^3/uL (2.7-7.7); Neutrophil % 78.6 % (47-70); Platelet Count 170 K/mm3 (150-450); RBC Distribution Width CV 12.5 % (11.6-14.6); RBC Distribution Width SD 44.6 fl (35.1-43.9); White Blood Count 15.1 K/mm3 (4.4-11.0)
[2022-10-16 07:11] LABS: ALB/GLOB Ratio 0.8 RATIO (0.9-2.4); AST(SGOT) 20 U/L (15-37); Alanine Aminotransfer ALT/SGPT 22 U/L (16-61); Albumin, Serum 2.7 g/dL (3.2-5.0); Alkaline Phosphatase 89 U/L (45-117); Anion Gap 5 (5-15); BUN 14 mg/dL (7-18); BUN/Creat Ratio 11.6 RATIO (10-20); Calcium,Total 9.3 mg/dL (8.5-10.1); Chloride 107 mmol/L (98-107); Creatinine, Serum 1.21 mg/dL (0.70-1.30); EST Glomerular Filtration Rate 62 mL/min (>60); Est Glom Filt Rate - Afr Amer 75 mL/min (>60); Globulin 3.5 g/dL (2.2-4.2); Glucose 254 mg/dL (74-106); Potassium 4.4 mmol/L (3.5-5.1); Protein, Total 6.2 g/dL (6.4-8.2); Sodium Level 139 mmol/L (136-145)
--- NOTE | 2022-10-16 07:44 | PCM.PN.HOSP ---
Reason for Visit Reason for Visit: Failure to thrive/confusion Subjective Subjective Mr. Renae is a 76-year-old male who had a outpatient cholecystectomy performed at [facility] by Dr. Ambrose at 9:30 AM on the day of admission and was discharged home at 1 PM on the day of admission who presented to the emergency department at [facility] 10/15/2022 with fatigue, lethargy, and has had difficulty caring for him at home. She gave most of his history as he is a poor historian at the time of presentation. She denied that he was having any fever, chills, nausea, vomiting, diarrhea, dysuria but the patient did complain of some abdominal discomfort. Vital signs on presentation demonstrated a T98.3, heart rate 74, BP 155/82, respiratory rate 18, and an oxygen saturation of 98% on room air. CBC showed a leukocytosis with a white count of 16.8 and a left shift of 79.3 but was otherwise unremarkable. VBG was performed and was unremarkable. His chemistry panel showed normal electrolytes, stable chronic serum creatinine elevation at 1.39 (baseline 1.2-1.5), and mild hyperglycemia with history of diabetes. Liver functions are normal. His urine was not consistent with infection. CT of the abdomen pelvis showed evidence of an enlarged prostate with a distended urinary bladder consistent with urinary bladder outlet obstruction, expected recent postcholecystectomy changes, bilateral hypoattenuating renal lesions with slight increase in size when compared to exam 2 years prior and streaky bilateral they basilar atelectasis with no acute abdominal findings. Patient was admitted to the medical floor for failure to thrive and encephalopathy and further work-up was pursued. Patient is much improved today. His states they think they discharged him to home. She indicates he is close to his baseline. I discussed with her that we would see how he does with physical therapy and see if he has any home health needs versus being able to go home without. She feels that she is able to take care of him as long as he is in his current condition or improved. Objective Data Objective Data Vital Signs: Vital Signs Temp Pulse Resp BP Pulse Ox O2 Del Method 98.8 F 74 18 155/82 H 98 Room Air 10/16/22 01:45 10/16/22 00:30 10/16/22 01:45 10/16/22 00:30 10/16/22 00:30 10/16/22 00:30 Oxygen Delivery Method Room Air Weight: 134.717 kg Body Mass Index (BMI) 40.2 Lab / Micro Data 10/16/22 06:42 10/16/22 06:42 Labs: Laboratory Results - last 24 hr 10/15/22 21:24: WBC 16.8 H, RBC 4.42 L, Hgb 13.5, Hct 43.1, MCV 97.5 H, MCH 30.5, MCHC 31.3 L, RDW Std Deviation 44.9 H, RDW Coeff of [place] 12.6, Plt Count 234, MPV 12.0, Immature Gran % (Auto) 0.600, Neut % (Auto) 79.3 H, Lymph % (Auto) 13.5 L, [place] % (Auto) 6.4, Eos % (Auto) 0.0, Baso % (Auto) 0.2, Absolute Neuts (auto) 13.3 H, Absolute Lymphs (auto) 2.26, Nucleated RBC % 0, Sodium 139, Potassium 4.5, Chloride 107, Carbon Dioxide 28.0, Anion Gap 4 L, BUN 15, Creatinine 1.39 H, Estim Creat Clear Calc 50.40, Est GFR (MDRD) Af Amer 64, Est GFR (MDRD) Non-Af 53 L, BUN/Creatinine Ratio 10.8, Glucose 175 H, Calcium 9.8, Total Bilirubin 0.80, AST 29, ALT 27, Alkaline Phosphatase 106, Total Protein 7.1, Albumin 3.3, Globulin 3.8, Albumin/Globulin Ratio 0.9, Lipase 13 10/15/22 21:47: POC Glucose 175 H 10/15/22 23:05: Urine Color Yellow, Urine Clarity Clear, Urine pH 5.0, Ur Specific [place] 1.020, Urine Protein 100 H, Urine Glucose (UA) 100 H, Urine Ketones 5 H, Urine Occult Blood 25 H, Urine Nitrite Negative, Urine Bilirubin 3 H, Urine Urobilinogen Normal, Ur Leukocyte Esterase Negative, Urine RBC 0-5 SEEN, Urine WBC 0 SEEN, Ur Squamous Epith Cells 0 SEEN, Urine Bacteria 0 SEEN, Urine Mucus 0 SEEN 10/16/22 06:42: WBC 15.1 H, RBC 4.00 L, Hgb 12.4 L, Hct 38.7 L, MCV 96.8 H, MCH 31.0, MCHC 32.0, RDW Std Deviation 44.6 H, RDW Coeff of [place] 12.5, Plt Count 170, MPV 11.6, Immature Gran % (Auto) 0.600, Neut % (Auto) 78.6 H, Lymph % (Auto) 13.4 L, [place] % (Auto) 7.2, Eos % (Auto) 0.0, Baso % (Auto) 0.2, Absolute Neuts (auto) 11.9 H, Absolute Lymphs (auto) 2.02, Nucleated RBC % 0, Sodium 139, Potassium 4.4, Chloride 107, Carbon Dioxide 27.0, Anion Gap 5, BUN 14, Creatinine 1.21, Estim Creat Clear Calc 57.90, Est GFR (MDRD) Af Amer 75, Est GFR (MDRD) Non-Af 62, BUN/Creatinine Ratio 11.6, Glucose 254 H, Calcium 9.3, Total Bilirubin 0.80, AST 20, ALT 22, Alkaline Phosphatase 89, Ammonia 19.0, Total Protein 6.2 L, Albumin 2.7 L, Globulin 3.5, Albumin/Globulin Ratio 0.8 L ABG Data ABG results: ABG 10/16/22 00:10 Specimen Type KAT VBG pH 7.35 VBG pO2 26 VBG HCO3 28 H VBG Total CO2 29 VBG O2 Sat (Calc) 43 L VBG Base Excess 2 POC Mix VBG pCO2 Pt Tmp 50.4 O2 Delivery Device Room Air Radiography Diagnostic Testing: Radiology Impression Abdomen/Pelvis CT 10/15/22 21:32 IMPRESSION: Enlarged prostate with distended urinary bladder consistent with urinary bladder outlet obstruction. Expected recent postcholecystectomy change as above. Bilateral hypoattenuating renal lesions, some of which have increased in size and do not measure simple fluid attenuation compared with 2 years prior, measuring up to 3 cm at the left lower renal pole. Although these likely represent mildly complex proteinaceous or milk of calcium cysts, which also can increase in size over time, recommend dedicated nonemergent follow-up renal ultrasound to better characterize as solid neoplastic process is not excluded. Streaky bibasilar atelectasis with mild elevation the right hemidiaphragm. Electronically Signed: Andrew Rich MD at 0:07 EDT , Brain CT 10/15/22 21:43 IMPRESSION: Age-related changes as above, without evidence of acute intracranial hemorrhage in this noncontrast head CT. Pansinus disease. Electronically Signed: Andrew Rich MD at 23:42 EDT , Chest X-Ray 10/15/22 22:36 IMPRESSION: Low lung volumes with streaky right lung base atelectasis versus other airspace disease. Consider dedicated PA and lateral chest radiographs, with attention to inspiratory effort, patient is able. Electronically Signed: Andrew Rich MD at 23:39 EDT , Rhythm Strip Rhythm Strip: Sinus Rhythm Rate: 72 Ectopy: PVC(s) Physical Exam Const alert, no apparent distress and well nourished; Negative for average body habitus or healthy appearing Constitutional Narrative: Morbidly obese, elderly white male, lying in right side-lying in bed, appears comfortable and nontoxic, at bedside oriented to self, place, and time only was confused on year, appears chronically ill HEENT head/scalp atraumatic and moist oral mucous membranes HEENT Narrative: Dentition is poor, Mallampati is 3, no thrush Head and Scalp: normocephalic Resp normal respiratory effort, no retractions, no use of accessory muscles and clear to auscultation bilaterally Resp Narrative: Diminished diffusely but clear Auscultation: Negative for rales, rhonchi or wheezes Cardio regular rate, S1 normal heart sound, S2 normal heart sound, no murmurs, no rub, no gallops and no clicks Cardio Narrative: Irregularly irregular rhythm GI normal to inspection, nondistended, normoactive bowel sounds, soft to palpation and non-tender Extremity Extremity Narrative: 1+ bilateral lower extremity edema that reports is chronic, no cyanosis or clubbing Neuro moves all extremities and no focal motor deficits Neuro Narrative: Generalized weakness noted, proximal greater than distal but no focal deficits Speech: speech normal Psych affect normal Psych Narrative: Pleasant interacts normally at this time, no signs of significant confusion Assessment & Plan Assessment/Plan (1) Adult failure to thrive: (2) Status post laparoscopic cholecystectomy: (3) Generalized weakness: (4) Leukocytosis: PLAN: Plan Debility/generalized weakness/adult failure to thrive -Postop day 1 cholecystectomy -Per he is much improved today -Dietitian consult -Add supplements to improve p.o. intake -Consult PT/OT -Consult continuous pillowcase cutter/social work for possible home health needs as we currently do not anticipate he will need placed at discharge Toxic/metabolic encephalopathy -Almost resolved and back to baseline -Ammonia level is normal -VBG does not show any signs of acidemia -Etiology is unclear at this time however it may be due to pain medication --> he is on Soma which I will discontinue for now and restart at discharge as he has been on this for a long period of time, gabapentin 800 mg 4 times daily, and Percocet -I suspect with his regular pain medications and sedation/anesthesia for surgery yesterday this caused his admitting etiology of confusion and fatigue and generalized debility Leukocytosis -Likely reactive from surgery -UA is unremarkable -Chest x-ray which shows no signs of pneumonia and patient does not have any cough or fever -We will check blood cultures -Procalcitonin is pending -We will hold on empiric antibiotics at this time -Repeat CBC in a.m. Recent laparoscopic cholecystectomy -No current issues -Liver functions normal -Monitor surgical wound DM-2 -Hyperglycemic this morning but this could be reactive -Continue home Humalog 30 units to 3 times daily -Patient is here to be on any basal insulin at this time -We will monitor sugars on current regimen and add basal insulin if needed -Continue additional sliding scale -Accu-Cheks Diabetic neuropathy -Continue home gabapentin as long as mental status continues to improve Hypertension/hyperlipidemia -Continue home Lasix -Continue home enalapril -Continue home atorvastatin PAF -Patient is not on any rate controlling as an rates are able -Continue apixaban 5 mg p.o. 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 GERD -Continue PPI Morbid obesity -BMI 40.3 -Recommend weight loss -Complicates treatment, prognosis, outcomes CODE STATUS -DNR CCA with no intubation Charges/Coding Visit Charges Inpatient E&M: 13555 Subs Hosp L2
[2022-10-16 08:40] LABS: Procalcitonin 0.43 ng/mL (0.00-0.09); Thyroid Stim Hormone (TSH) 0.68 uIU/mL (0.358-3.74)
[2022-10-16] MEDS: Insulin Lispro 100 UNIT/ML INSULN.PEN SC ×3 (09:02→21:54)
[2022-10-16] MEDS: Ondansetron 4 MG/2 ML Vial IV (09:02)
[2022-10-16] MEDS: Acetaminophen 325 MG Tablet 650 MG PO ×2 (09:02→21:55)
[2022-10-16] MEDS: 0.9% Normal Saline 1,000 ML 100 ML IV (09:03)
[2022-10-16] MEDS: 0.9% Saline Lock 10 ML Syringe IV (09:03)
[2022-10-16] MEDS: APIXABAN 5 MG TABLET PO ×2 (09:04→21:45)
[2022-10-16] MEDS: Lisinopril 10 MG Tablet PO (09:04)
[2022-10-16] MEDS: Levothyroxine 25 MCG TABLET PO (09:04)
[2022-10-16] MEDS: Furosemide 40 MG Tablet PO (09:04)
[2022-10-16] MEDS: Pantoprazole Sodium 40 MG Tablet PO (09:04)
[2022-10-16] MEDS: Finasteride 5 MG Tablet PO (09:05)
[2022-10-16] MEDS: Gabapentin 800 MG Tablet PO ×4 (09:09→21:43)
[2022-10-16 09:13] LABS: Bedside Glucose 252 mg/dL (74-106)
[2022-10-16 09:27] VITALS: BP 152/73; PULSE 57; RESP 18; TEMP 36.6; O2SAT 97
[2022-10-16] MEDS: oxyCODONE 5 MG Tablet PO ×3 (11:33→21:44)
[2022-10-16 12:04] LABS: Bedside Glucose 261 mg/dL (74-106)
[2022-10-16] MEDS: Insulin Lispro 100 UNIT/ML INSULN.PEN 30 UNIT SC (14:11)
[2022-10-16] MEDS: Menthol/Lanolin/Calamine/Znox 113 GM Tube 1 APPLIC TOPICAL ×2 (14:13→21:44)
[2022-10-16 15:08] VITALS: BP 134/68; PULSE 55; RESP 20; TEMP 36.9; O2SAT 96
--- NOTE | 2022-10-16 15:35 | CASEMGMT ---
Addendum entered and electronically signed by Reyna Grande RN 10/16/22 23:43: PT/OT guillermina pending. Will watch for further recommendations. Original Note: DOMINIC MARIE Discharge Planning: This DOMINIC MARIE met with pt and pt's at bedside. Pt sitting up in chair but nursing had been notified of pt wanting to return to bed. Pt's states pt is legally blind and [place]. Discharge plan discussed with pt's who states she prefers to take him home. States that due to pt's hearing and blindness, it is best for pt to be in a familiar environment and she has learned how to take care of him. States their nephew lives with them also and is available to assist with care needs. Pt's states she feels pt's mentation has improved and she will be able to provide his care at home. ARTHUR form reviewed with pt's who signed the form. Original form placed in pt's chart and copy provided to pt's . DC Plan: Home with support of and nephew Fredo Grande RN CM
[2022-10-16 16:30] VITALS: O2SAT 95
[2022-10-16 17:50] LABS: Bedside Glucose 183 mg/dL (74-106)
[2022-10-16] MEDS: Glucerna Shake 120 ML LIQUID PO ×2 (18:29→21:45)
[2022-10-16] MEDS: MELATONIN 3 MG TABLET PO (21:43)
[2022-10-16] MEDS: Atorvastatin Calcium 80 MG Tablet PO (21:46)
[2022-10-16] MEDS: Senna/Docusate Sodium 1 Tablet 2 TABLET PO (21:55)
[2022-10-16 22:00] VITALS: BP 162/84; PULSE 60; RESP 16; TEMP 36.9; O2SAT 96
[2022-10-17 00:13] LABS: Bedside Glucose 200 mg/dL (74-106)
[2022-10-17] MEDS: Senna/Docusate Sodium 1 Tablet 2 TABLET PO (06:18)
[2022-10-17] MEDS: Levothyroxine 25 MCG TABLET PO (06:18)
[2022-10-17] MEDS: Acetaminophen 325 MG Tablet 650 MG PO (06:18)
[2022-10-17 06:29] VITALS: BMI 38.8
[2022-10-17 06:30] VITALS: BP 169/77; PULSE 65; RESP 18; TEMP 37.1; O2SAT 96
[2022-10-17 06:40] LABS: Absolute Neutrophil Count 8.3 X10^3/uL (2.0-7.7); Basophil# 0.03 X10^3/uL; Basophil% 0.3 % (0-1); Eosinophil# 0.52 X10^3/uL; Eosinophils% 4.4 % (0-5); Hemoglobin 10.8 g/dL (13.0-16.5); Lymphocyte % 16.2 % (19-41); Mean Corp Hgb Conc 31.8 g/dL (32-36); Mean Corpuscular Hgb 30.7 pg (27.0-32.0); Mean Corpuscular Volume 96.6 fL (80-94); Mean Platelet Vol. 12.1 fl (6.2-12.0); Monocyte# 0.93 X10^3/uL; Monocyte% 7.9 % (0-10); NRBC Flagged by Analyzer 0 % (0-5); Neutrophil # 8.29 X10^3/uL (2.7-7.7); Neutrophil % 70.7 % (47-70); Platelet Count 141 K/mm3 (150-450); RBC Distribution Width CV 12.5 % (11.6-14.6); RBC Distribution Width SD 43.7 fl (35.1-43.9); Red Blood Count 3.52 M/mm3 (4.6-6.2); White Blood Count 11.7 K/mm3 (4.4-11.0)
[2022-10-17 06:52] LABS: Bedside Glucose 207 mg/dL (74-106)
[2022-10-17 07:05] LABS: Anion Gap 4 (5-15); BUN 16 mg/dL (7-18); BUN/Creat Ratio 14.8 RATIO (10-20); Calcium,Total 8.8 mg/dL (8.5-10.1); Chloride 107 mmol/L (98-107); Creatinine, Serum 1.08 mg/dL (0.70-1.30); EST Glomerular Filtration Rate 71 mL/min (>60); Est Glom Filt Rate - Afr Amer 86 mL/min (>60); Estimated Creatinine Clearance 64.87 ml/min; Glucose 224 mg/dL (74-106); Sodium Level 140 mmol/L (136-145)
[2022-10-17 08:03] VITALS: O2SAT 94
[2022-10-17] MEDS: Ondansetron 4 MG/2 ML Vial IV (08:21)
[2022-10-17] MEDS: 0.9% Saline Lock 10 ML Syringe IV (08:21)
[2022-10-17 08:25] VITALS: BP 153/67; PULSE 60; RESP 16; TEMP 37.1; O2SAT 94
[2022-10-17] MEDS: Insulin Lispro 100 UNIT/ML INSULN.PEN 30 UNIT SC ×2 (08:37→12:58)
[2022-10-17] MEDS: Insulin Lispro 100 UNIT/ML INSULN.PEN SC ×2 (08:37→12:57)
[2022-10-17] MEDS: APIXABAN 5 MG TABLET PO (10:27)
[2022-10-17] MEDS: Furosemide 40 MG Tablet PO (10:27)
[2022-10-17] MEDS: Pantoprazole Sodium 40 MG Tablet PO (10:28)
[2022-10-17] MEDS: Finasteride 5 MG Tablet PO (10:28)
[2022-10-17] MEDS: Lisinopril 10 MG Tablet PO (10:28)
[2022-10-17] MEDS: Gabapentin 800 MG Tablet PO ×2 (10:30→13:51)
[2022-10-17] MEDS: oxyCODONE 5 MG Tablet PO (10:36)
[2022-10-17 12:12] LABS: Bedside Glucose 224 mg/dL (74-106)
--- NOTE | 2022-10-17 13:26 | PCM.DC.SUM ---
Providers Date of Admission: 10/15/22 Date of Discharge: 10/17/22 Primary Care Physician: Dr. 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 Routine Comment: Reason for Consult:: B heels Reason For Visit: ADULT FTT, ENCEPHALOPATHY Diagnosis Discharge Diagnosis (1) Adult failure to thrive: Status: Acute Code(s): R62.7 - Adult failure to thrive (2) Status post laparoscopic cholecystectomy: Status: Acute Code(s): Z90.49 - Acquired absence of other specified parts of digestive tract (3) Generalized weakness: Status: Acute Code(s): R53.1 - Weakness (4) Leukocytosis: Status: Acute Code(s): D72.829 - Elevated white blood cell count, unspecified Plan Debility/generalized weakness/adult failure to thrive -Postop day 1 cholecystectomy -Per he is much improved today -Dietitian consult -Add supplements to improve p.o. intake -Consult PT/OT -Consult caseworker intake/social work for possible home health needs as we currently do not anticipate he will need placed at discharge Toxic/metabolic encephalopathy -Almost resolved and back to baseline -Ammonia level is normal -VBG does not show any signs of acidemia -Etiology is unclear at this time however it may be due to pain medication --> he is on Soma which I will discontinue for now and restart at discharge as he has been on this for a long period of time, gabapentin 800 mg 4 times daily, and Percocet -I suspect with his regular pain medications and sedation/anesthesia for surgery yesterday this caused his admitting etiology of confusion and fatigue and generalized debility Leukocytosis -Likely reactive from surgery -UA is unremarkable -Chest x-ray which shows no signs of pneumonia and patient does not have any cough or fever -We will check blood cultures -Procalcitonin is pending -We will hold on empiric antibiotics at this time -Repeat CBC in a.m. Recent laparoscopic cholecystectomy -No current issues -Liver functions normal -Monitor surgical wound DM-2 -Hyperglycemic this morning but this could be reactive -Continue home Humalog 30 units to 3 times daily -Patient is here to be on any basal insulin at this time -We will monitor sugars on current regimen and add basal insulin if needed -Continue additional sliding scale -Accu-Cheks Diabetic neuropathy -Continue home gabapentin as long as mental status continues to improve Hypertension/hyperlipidemia -Continue home Lasix -Continue home enalapril -Continue home atorvastatin PAF -Patient is not on any rate controlling as an rates are able -Continue apixaban 5 mg p.o. 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 GERD -Continue PPI Morbid obesity -BMI 40.3 -Recommend weight loss -Complicates treatment, prognosis, outcomes CODE STATUS -DNR CCA with no intubation Medications at Discharge Home Medications cyanocobalamin (vitamin B-12) 1,000 mcg/mL injection solution 100 mcg IM Q30D PRN Fatigue 08/21/13 enalapril maleate 10 mg tablet 10 mg PO DAILY 08/21/13 gabapentin 800 mg tablet 800 mg PO 4XD 08/21/13 omeprazole 40 mg capsule,delayed release 40 mg PO DAILY 08/21/13 atorvastatin 80 mg tablet 80 mg PO QHS 07/25/14 carisoprodol 350 mg tablet 350 mg PO TID PRN Muscle Spasm 09/13/18 finasteride 5 mg tablet 1 tab PO DAILY 01/23/20 hydrocodone 10 mg-acetaminophen 325 mg tablet 1 tab PO 4X/DAY 01/23/20 levothyroxine 25 mcg tablet 25 mcg PO DAILY 01/23/20 cholecalciferol (vitamin D3) 125 mcg (5,000 unit) capsule 125 mcg PO DAILY 04/11/20 furosemide 40 mg tablet 40 - 80 mg PO DAILY 04/11/20 ggxwivcj-st-aejlj 300 mcg-K 60 mcg-lycop 600 mcg-lutein 300 mcg tablet 1 each PO DAILY 06/18/20 apixaban 5 mg tablet (Eliquis) 5 mg PO BID 07/02/20 ferrous sulfate 325 mg (65 mg iron) tablet 325 mg PO DAILY 07/15/22 insulin aspart U-100 100 unit/mL (3 mL) subcutaneous pen (Novolog FlexPen U-100 Insulin aspart) 30 unit subcut TID 08/26/22 Hospital Course Procedures EKG and - (CT brain/CT abdomen pelvis/chest x-ray) Summary of Care Provided Minutes Spent on Discharge: 28 Hospital Course: Mr. Renae is a 76-year-old male who had a outpatient cholecystectomy performed at [facility] by Dr. Ambrose at 9:30 AM on the day of admission and was discharged home at 1 PM on the day of admission who presented to the emergency department at [facility] 10/15/2022 with fatigue, lethargy, and has had difficulty caring for him at home. She gave most of his history on presentation as he was a poor historian at the time of admission. She denied that he was having any fever, chills, nausea, vomiting, diarrhea, dysuria but the patient did complain of some abdominal discomfort. Vital signs on presentation demonstrated a T98.3, heart rate 74, BP 155/82, respiratory rate 18, and an oxygen saturation of 98% on room air. CBC showed a leukocytosis with a white count of 16.8 and a left shift of 79.3 but was otherwise unremarkable. VBG was performed and was unremarkable. His chemistry panel showed normal electrolytes, stable chronic serum creatinine elevation at 1.39 (baseline 1.2-1.5), and mild hyperglycemia with history of diabetes. Liver functions are normal. His urine was not consistent with infection. CT of the abdomen pelvis showed evidence of an enlarged prostate with a distended urinary bladder consistent with urinary bladder outlet obstruction, expected recent postcholecystectomy changes, bilateral hypoattenuating renal lesions with slight increase in size when compared to exam 2 years prior and streaky bilateral they basilar atelectasis with no acute abdominal findings. Patient was admitted to the medical floor and his encephalopathy resolved with time. I suspect this is related to medications and administered for anesthesia and pain postoperatively. He was close to his baseline within 12 hours of admission and resolved back to baseline at the time of discharge. He was evaluated by physical and Occupational Therapy and they felt he would benefit from some home health therapy. His felt with his current functional status that she would not be able to take him home and help him take care of himself as she had previously. I did inform her that case management will call her tomorrow on 10/18/2022 to set up home health and further therapy and some nursing services. He already has follow-up appointment with Dr. Ambrose scheduled postoperatively and I will have him follow-up with his primary care physician as needed. He was able to be discharged home in stable condition on 10/17/2022 with ongoing home health pending. 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 GERD Morbid obesity Physical Exam Const alert, oriented x3, no apparent distress and well nourished; Negative for average body habitus or healthy appearing Constitutional Narrative: Morbidly obese, sitting up in bed, appears comfortable and nontoxic, at bedside, appears chronically ill General Appearance: cooperative, comfortable, well kempt and well developed Orientation / Consciousness: awake, oriented to person, oriented to place and oriented to time Exam Limitations: no limitations Nutritional Appearance: obese HEENT normocephalic, head/scalp atraumatic and moist oral mucous membranes; Negative for hearing grossly normal bilaterally HEENT Narrative: Mallampati is 3, no thrush, patient is very hard of hearing Resp normal respiratory effort, no retractions, no use of accessory muscles and clear to auscultation bilaterally Resp Narrative: Diminished diffusely but clear Auscultation: Negative for rales, rhonchi or wheezes Cardio regular rate, S1 normal heart sound, S2 normal heart sound, no murmurs, no rub, no gallops and no clicks Cardio Narrative: Irregularly irregular rhythm GI normal to inspection, nondistended, normoactive bowel sounds, soft to palpation and non-tender GI Narrative: Surgical incisions are clean dry and intact and Steri-Strips are in place Extremity Extremity Narrative: 1+ bilateral lower extremity edema that reports is chronic, no cyanosis or clubbing Neuro moves all extremities and no focal motor deficits Neuro Narrative: Generalized weakness noted, proximal greater than distal but no focal deficits Speech: speech normal Psych affect normal Psych Narrative: Pleasant interacts normally at this time, no signs of significant confusion Weight / BMI Weight Weight: 130.181 kg Body Mass Index (BMI) 38.8 ABG / Lab / Microbiology Data 10/17/22 06:10 10/17/22 06:10 Laboratory: Laboratory Results - last 24 hr 10/16/22 17:04: POC Glucose 183 H 10/16/22 21:52: POC Glucose 200 H 10/17/22 06:10: WBC 11.7 H, RBC 3.52 L, Hgb 10.8 L, Hct 34.0 L, MCV 96.6 H, MCH 30.7, MCHC 31.8 L, RDW Std Deviation 43.7, RDW Coeff of King 12.5, Plt Count 141 L, MPV 12.1 H, Immature Gran % (Auto) 0.500, Neut % (Auto) 70.7 H, Lymph % (Auto) 16.2 L, Shannon % (Auto) 7.9, Eos % (Auto) 4.4, Baso % (Auto) 0.3, Absolute Neuts (auto) 8.3 H, Absolute Lymphs (auto) 1.90, Nucleated RBC % 0, Sodium 140, Potassium 4.0, Chloride 107, Carbon Dioxide 29.0, Anion Gap 4 L, BUN 16, Creatinine 1.08, Estim Creat Clear Calc 64.87, Est GFR (MDRD) Af Amer 86, Est GFR (MDRD) Non-Af 71, BUN/Creatinine Ratio 14.8, Glucose 224 H, Calcium 8.8 10/17/22 06:15: POC Glucose 207 H 10/17/22 11:34: POC Glucose 224 H D/C Instructions Discharge Diet: Low fat / Low cholesterol and 1800 Calorie Control Diet Discharge Activity: Return to Normal Activity Meaningful Use Info Meaningful Use Diagnoses (Choose all that apply): None applicable Discharge Plan Admission Admit Date/Time: 10/15/22 23:29 Primary Reason for Your Visit: Weakness and confusion Attending Provider: Cherelle Tesfaye Primary Care Provider: Angelia Conway Consulting Providers: Marva Curtis Discharge Orders/Prescriptions Prescriptions: Continued hydrocodone-acetaminophen 10-325 mg tablet 1 tab PO 4X/DAY finasteride 5 mg tablet 1 tab PO DAILY levothyroxine 25 mcg tablet 25 mcg PO DAILY cholecalciferol (vitamin D3) 125 mcg (5,000 unit) capsule 125 mcg PO DAILY furosemide 40 mg tablet 40 - 80 mg PO DAILY Patient Comments: WATER PILL Eliquis 5 mg tablet 5 mg PO BID insulin aspart U-100 [Novolog FlexPen U-100 Insulin] 100 unit/mL (3 mL) insulin pen 30 unit subcut TID enalapril maleate 10 MG tablet 10 mg PO DAILY Patient Comments: BLOOD PRESSURE omeprazole 40 MG capsule 40 mg PO DAILY Patient Comments: ACID REFLUX gabapentin 800 MG tablet 800 mg PO 4XD Patient Comments: NERVE PAIN cyanocobalamin (vitamin B-12) 1,000 MCG/ML solution 100 mcg IM Q30D PRN (Reason: Fatigue) Patient Comments: SUPPLEMENT carisoprodol 350 mg tablet 350 mg PO TID PRN (Reason: Muscle Spasm) Patient Comments: MUSCLE RELAXANT atorvastatin 80 MG tablet 80 mg PO QHS Patient Comments: CHOLESTEROL [id number] 1 EACH tablet 1 each PO DAILY ferrous sulfate 325 mg (65 mg iron) Tablet 325 mg PO DAILY Referrals / Follow Up: Juanjo Ambrose MD [Med Staff - Active Staff] - See Referral Note (As scheduled) Angelia Conway DO [Primary Care Provider] - See Referral Note (As scheduled) Disposition Disposition (needs filled in before D/C Order can be placed): Home Health Service Charges/Coding Visit Charges Inpatient E&M: 25786 Disch Hosp
[2022-10-17 13:53] VITALS: BP 125/76; PULSE 85; RESP 16; TEMP 37.3; O2SAT 96
--- NOTE | 2022-10-18 14:13 | CASEMGMT ---
DOMINIC MARIE Follow-up: Noted determined need for home healthcare upon discharge. Call placed to pt to discuss. Pt's spouse Janey answered. Pt previously noted to be very NISQUALLY and legally blind, so continued discussion with pt's spouse. Reviewed recommendation for home healthcare including SN, PT/OT services. Pt's spouse agreeable to services. Reviewed list of home health agencies that service pt's geographic region and skilled needs. Pt's declined list to be texted or sent to her via email so quality and resource use data was not shared. Pt's initially selected [facility] due to previous use of [facility] therapy services but then called back and pt had told his he wanted [facility]. SATYA Valdes Printing Machine Mechanic notified of need for referral to [facility]. Plan: Home w/[facility] for SN, PT/OT services pending acceptance. Fredo Grande RN CM
--- NOTE | 2022-10-18 14:22 | CASEMGMT ---
Discharge Planning Asst. Referral made to [facility] via phone and [facility]. Awaiting response. Keisha Hutchinson, Discharge Planning Asst.
--- NOTE | 2022-10-18 15:57 | CASEMGMT ---
Discharge Planning [facility] has accepted patient with SOC on . Patients , Janey, and RN CM notified. Keisha Hutchinson, Discharge Planning Asst.
== END 2022-10-17 14:30 | disposition home health service (06) ==
LOC: ED 21:54 → MS3 23:43
PROVIDERS: Admitting Provider Family Medicine; Emergency Provider Emergency Medicine; PCP Internal Medicine; Referring Provider Family Medicine; Visit Provider Internal Medicine
DX: R62.7 Adult failure to thrive (principal); E11.621 Type 2 diabetes mellitus with foot ulcer; L97.419 Non-pressure chronic ulcer of right heel and midfoot with unspecified severity; L97.429 Non-pressure chronic ulcer of left heel and midfoot with unspecified severity; E11.40 Type 2 diabetes mellitus with diabetic neuropathy, unspecified; E11.65 Type 2 diabetes mellitus with hyperglycemia; E11.22 Type 2 diabetes mellitus with diabetic chronic kidney disease; I48.0 Paroxysmal atrial fibrillation; Z68.41 Body mass index [BMI] 40.0-44.9, adult; E66.01 Morbid (severe) obesity due to excess calories; Z79.4 Long term (current) use of insulin; N18.32 Chronic kidney disease, stage 3b; E03.9 Hypothyroidism, unspecified; R53.1 Weakness; R53.83 Other fatigue; H54.8 Legal blindness, as defined in USA; K21.9 Gastro-esophageal reflux disease without esophagitis; I12.9 Hypertensive chronic kidney disease with stage 1 through stage 4 chronic kidney disease, or unspecified chronic kidney disease; Z87.891 Personal history of nicotine dependence; N40.0 Benign prostatic hyperplasia without lower urinary tract symptoms; R53.81 Other malaise; E78.5 Hyperlipidemia, unspecified; Z79.01 Long term (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 of anticoagulants; G92.8 Other toxic encephalopathy; Z79.899 Other long term (current) drug therapy; Z79.890 Hormone replacement therapy
CPT/HCPCS: 36415; 70450; 71045; 74177; 80048; 80053; 81001; 82140; 82803; 82962; 83690; 84145; 84443; 85025; 87040; 93005; 96361; 96374; 96376; 97162; 97165; 97802; 99221; 99285; J7030; P9612; Q9967; A4216; G0378; J2405

== ENCOUNTER → 2022-11-15 | Outpatient (CLI) | payer MEDICARE, OTHER, SELFPAY ==
--- NOTE | 2022-11-15 09:42 | US_ITS ---
STUDY: ABDOMINAL ULTRASOUND - RIGHT UPPER QUADRANT REASON FOR VISIT: Male, 76 years old Renal lesion TECHNIQUE: Ultrasound evaluation of the right upper quadrant was performed with real-time and static alston-scale imaging. TECHNICAL QUALITY: Limited. Examination limited due to a combination of factors including patient condition, body habitus and bowel gas. COMPARISON: 05/22/2022. FINDINGS: Liver: The liver measures 16.5 cm. There is increased echogenicity consistent with fatty infiltration. The bile ducts are within normal limits. There is hepatic color flow. The direction of portal flow is hepatopetal. There is no demonstrated mass lesion. Gallbladder: The patient is status post cholecystectomy. Common Bile Duct (C.B.D.): The common bile duct measures 4.6 mm. Pancreas: There is nonvisualization of the pancreas. Right Kidney: Normal size of the right kidney. The right kidney measures 10.6 x 5.3 x 5.8 cm. Normal renal cortex. The right cortex measures 1.4 cm. Within the upper pole of the right kidney there is a round anechoic structure measuring 1.5 x 1.6 x 1.3 cm consistent with a simple cyst. No distinct solid lesion seen. There is no right hydronephrosis. US/Abdomen Limited IMPRESSION: Diffuse fatty liver with status post cholecystectomy. Right upper renal pole simple cyst measuring 1.6 cm. Remainder of the right upper quadrant ultrasound unremarkable. Electronically Signed: Yesenia Lilly MD at 20:27 EDT ,
== END | disposition home or self-care (01) ==
LOC: US 09:40
PROVIDERS: PCP Internal Medicine; Referring Provider Internal Medicine; Visit Provider Internal Medicine
DX: N28.9 Disorder of kidney and ureter, unspecified (principal)
CPT/HCPCS: 76705

== ENCOUNTER → 2022-12-13 | Outpatient (CLI) | payer MEDICARE, OTHER, SELFPAY ==
--- NOTE | 2022-12-13 07:28 | US_ITS ---
STUDY: ABDOMINAL ULTRASOUND - ELASTOGRAPHY REASON FOR VISIT: Male, 77 years old. Fatty infiltration of the liver. TECHNIQUE: Liver stiffness measurements were obtained on a [employer] RS 85 ultrasound machine using a CA 1-7 probe following the U guidelines. 3 measurements were obtained using a 2-D-SWE method. TheIQR/M was 24 % suggesting a quality data set. TECHNICAL QUALITY: Adequate. COMPARISON: Comparison is made with prior examination dated November 15, 2022. FINDINGS: Liver: There is no demonstrated mass lesion. Median liver stiffness measured 7.6 kPa. Abdomen: There is no demonstrated mass lesion. US/Elastography Parenchyma/Organ IMPRESSION: Liver stiffness measures 7.6 kPa compatible with F2-F3 (Mild to moderate liver fibrosis) Metavir score. Electronically Signed: Marcus Spears MD at 9:05 EDT ,
== END | disposition home or self-care (01) ==
LOC: US 07:27
PROVIDERS: PCP Internal Medicine; Referring Provider Internal Medicine; Visit Provider Internal Medicine
DX: K76.0 Fatty (change of) liver, not elsewhere classified (principal)
CPT/HCPCS: 76981

== ENCOUNTER → 2023-03-11 | Outpatient (CLI) | payer MEDICARE, OTHER, SELFPAY ==
--- NOTE | 2023-03-11 10:57 | VDLE_ITS ---
Reason For Study: Pain RIGHT LEFT CFV is compressible, spontaneous, phasic, CFV is compressible, spontaneous, phasic, competent and demonstrates normal competent, and demonstrates normal augmentation. augmentation. Procedure FV is compressible, spontaneous, phasic, This is a venous duplex using B-mode, color competent and demonstrates normal flow and spectral Doppler. augmentation. Exam performed in department. POP V is compressible, spontaneous, phasic, A preliminary report was called and/or faxed competent and demonstrates normal to Kat ALFARO. augmentation. T/P Trunk is compressible. PTV is compressible. LT PerV is compressible. Lt ASV in the calf is NON COMPRESSIBLE Lt GSV and Lt SSV previous EVLA. VL/Venous Duplex US, Unilateral Interpretation Summary Acute superficial vein thrombosis noted in the left calf accessory saphenous ve in. Left great saphenous vein and small saphenous vein occluded consistent with estefania or ablation. Deep veins of the left lower extremity are patent and compressible segmentally. There is no evidence of left lower extremity deep vein thrombosis. Ordering Physician: Angelia Conway Referring Physician: Angelia Conway Performed By: Kimmie Lopez, BURT, RVT
== END | disposition home or self-care (01) ==
LOC: CVS 10:56
PROVIDERS: PCP Internal Medicine; Referring Provider Internal Medicine; Visit Provider Internal Medicine
DX: M79.662 Pain in left lower leg (principal)
CPT/HCPCS: 93971

== ENCOUNTER → 2023-03-24 | Outpatient (CLI) | payer MEDICARE, OTHER, SELFPAY ==
[2023-03-24 15:34] LABS: Absolute Lymphocyte Count 2.98 X10^3/uL (0.83-4.51); Basophil# 0.06 X10^3/uL; Basophil% 0.7 % (0-1); Eosinophil# 0.46 X10^3/uL; Hematocrit 37.3 % (40-54); Hemoglobin 11.9 g/dL (13.0-16.5); Lymphocyte # 2.98 X10^3/ul (0.83-4.51); Lymphocyte % 32.5 % (19-41); Mean Corp Hgb Conc 31.9 g/dL (32-36); Mean Corpuscular Hgb 30.4 pg (27.0-32.0); Mean Corpuscular Volume 95.2 fL (80-94); Monocyte# 0.68 X10^3/uL; Monocyte% 7.4 % (0-10); NRBC Flagged by Analyzer 0 % (0-5); Neutrophil # 4.96 X10^3/uL (2.7-7.7); Neutrophil % 54.2 % (47-70); Platelet Count 238 K/mm3 (150-450); RBC Distribution Width CV 13.2 % (11.6-14.6); Red Blood Count 3.92 M/mm3 (4.6-6.2); White Blood Count 9.2 K/mm3 (4.4-11.0)
[2023-03-24 15:50] LABS: Color, Urine Yellow (Yellow); Glucose, Dipstick 100 mg/dl (Normal); Ketone-Dipstick Negative (Negative); Leukocyte Esterase-Dipstick 25 /ul (Negative); Nitrite-Dipstick Positive (Negative); Occult Blood-Urine 25 /ul (Negative); Protein-Dipstick 100 mg/dl (Negative); Urine Clarity Clear (Clear); Urine Urobilinogen 1 mg/dl (Normal)
[2023-03-24 15:53] LABS: Urine Bilirubin Dipstick 1 mg/dL (Negative)
[2023-03-24 16:36] LABS: Vitamin B12 372 pg/mL (211-911)
[2023-03-24 16:47] LABS: ALB/GLOB Ratio 0.8 RATIO (0.9-2.4); AST(SGOT) 17 U/L (15-37); Alanine Aminotransfer ALT/SGPT 23 U/L (16-61); Alkaline Phosphatase 120 U/L (45-117); Anion Gap 5 (5-15); BUN 17 mg/dL (7-18); BUN/Creat Ratio 14.7 RATIO (10-20); Calcium,Total 9.7 mg/dL (8.5-10.1); Chloride 109 mmol/L (98-107); Cholesterol 114 mg/dL (200); Creatinine, Serum 1.16 mg/dL (0.70-1.30); EST Glomerular Filtration Rate 65 mL/min (>60); Est Glom Filt Rate - Afr Amer 79 mL/min (>60); Globulin 3.7 g/dL (2.2-4.2); Glucose 192 mg/dL (74-106); High Density Lipoprotein 64 mg/dL; Potassium 4.4 mmol/L (3.5-5.1); Protein, Total 6.7 g/dL (6.4-8.2); Sodium Level 143 mmol/L (136-145); Thyroid Stim Hormone (TSH) 1.43 uIU/mL (0.358-3.74); Triglycerides 64 mg/dL; Very Low Density Lipoprotein 13 mg/dL (5-40)
[2023-03-24 17:07] LABS: Microalbumin:Creatinine Ratio 1279.7 mg/g CRE (<30 mg/g CRE)
== END | disposition home or self-care (01) ==
LOC: MTLAB 12:40
PROVIDERS: PCP Internal Medicine; Referring Provider Internal Medicine; Visit Provider Internal Medicine
DX: E03.9 Hypothyroidism, unspecified (principal); E11.9 Type 2 diabetes mellitus without complications; R80.9 Proteinuria, unspecified; D51.8 Other vitamin B12 deficiency anemias; E78.00 Pure hypercholesterolemia, unspecified
CPT/HCPCS: 36415; 80053; 80061; 81002; 82043; 82570; 82607; 84443; 85025

== ENCOUNTER 2023-04-06 14:30 | Outpatient (RCR) | payer MEDICARE, OTHER, SELFPAY ==
[2023-03-30 13:59] VITALS: BP 148/70; PULSE 64; RESP 16; TEMP 36.8
--- NOTE | 2023-03-30 21:07 | PN.PCM_ITS ---
History of Present Illness Date of Service: 03/30/23 Chief Complaint: Right foot ulcer History of Wound: This 76-year-old male with significant PMHx of diabetes type II with peripheral polyneuropathy, atrial fibrillation, hyperlipidemia, HTN, blindness, insomnia, history of acute renal failure, retinitis pigmentosa, Kaposi sarcoma right foot, and history of venous insufficiency with multiple procedural interventions was seen for right and left foot ulcer. Last seen by Dr. Moore, vascular specialist in 2020. Patient has not gone back for continued evaluation. Does have confirmed venous insufficiency of the great saphenous vein bilateral with bilateral lower extremity edema and lymphedema. He denies N/V/F/chills. He denies redness or odor to the foot bilateral. He is with his today. states that he had been following with Dr. Natalia Hernandez, [facility] in office following dispense of Sigvaris compression wrap and bilateral AFO braces made by [employer]. states that these braces have caused rubbing on the inside of the heel of both feet that had formed a blister and eventually broke open into a wound. States that they have not healed in the last month and Dr. Hernandez referred them to the wound care center for further evaluation. Subjective Subjective Mr. Renae is a 77-year-old diabetic male who is presenting to the wound care center today for follow-up and evaluation of bilateral heel wounds. Patient is legally blind. His wound care at home is provided by his . Patient has history of chronic wound to the medial heels secondary to pressure. The admits that the left heel is odorous and has a greenish tent. She admits that the right heel has evidence of a blister. Patient is a uncontrolled diabetic. He denies trauma. Denies constitutional symptoms. No other pedal complaints at this time. Objective Data Objective Data Vital Signs: Vital Signs Temp Pulse Resp BP O2 Del Method 98.3 F 64 16 148/70 H Room Air 03/30/23 13:59 03/30/23 13:59 03/30/23 13:59 03/30/23 13:59 03/30/23 13:59 Oxygen Delivery Method Room Air Weight: 2.722 kg Body Mass Index (BMI) 0.0 Physical Exam Narrative Vascular: DP and PT pulses are palpable. CFT is brisk. +1 pitting edema appreciated to bilateral lower extremity. Evidence of blanchable erythema appreciated to the bilateral heels. Neurological: Light touch intact. Protective sensation is absent. Patient does not respond to painful stimuli. Dermatological: Full-thickness ulceration appreciated to bilateral heels. The right full-thickness ulceration measures 1.3 x 2.0 x 0.2 cm. The left medial heel ulceration measures 4.3 x 6.2 x 0.2 cm. Wound base to the right heel is under percent granular nature. The left heel wound shows evidence of greenish pigment color with sweet malodor concerning for Pseudomonas infection. The right heel shows no evidence of infection. Excisional debridement down to and including subcutaneous tissue with a number 5 mm dermal curette to the right heel full-thickness ulceration without incident. Predebridement measurement was bullae, postdebridement measurement is 1.3 x 0.7 x 0.1 cm. Excisional debridement down to including subcutaneous tissue with a number 5 mm dermal curette to the left heel full-thickness ulceration without incident. Predebridement measurement is 4.0 x 5.8 x 0.2 cm. Postdebridement measurement is 4.3 x 6.2 x 0.2 cm. After debridement the wound shows evidence of a greenish colorization concerning for Pseudomonas infection. Musculoskeletal: No pain on palpation to the full-thickness ulceration. No pain with calf compression. Debridement Note Debridement Note Debridement Free Text: Excisional debridement down to and including subcutaneous tissue with a number 5 mm dermal curette to the right heel full-thickness ulceration without incident. Predebridement measurement was bullae, postdebridement measurement is 1.3 x 0.7 x 0.1 cm. Excisional debridement down to including subcutaneous tissue with a number 5 mm dermal curette to the left heel full-thickness ulceration without incident. Predebridement measurement is 4.0 x 5.8 x 0.2 cm. Postdebridement measurement is 4.3 x 6.2 x 0.2 cm. After debridement the wound shows evidence of a greenish colorization concerning for Pseudomonas infection. Post-Debridement Measurements and Additional Note: Post-Debridement Measurements/Treatment [place] - Nurse 1 - General Ulcer Assessment Start: 03/30/23 13:52 Freq: Status: Active Protocol: LISETHEXDarrell Activity Type Activity Date Activity User E-sign Co-sign Detail Recorded Client Recorded Date Recorded By Document 03/30/23 13:59 BM Desktop 03/30/23 14:17 [facility] 03/30/23 13:59 WC - Today's Visit Information Type of service Initial Visit Arrival Mode Wheelchair Transfer Assistance Other Transfer Assist (Other) 1 STAND BY Accompanied by Patient Identification Verified (Name & Yes ) Patient Requires Transmission-Based No Precautions Height and Weight Height 270 ft Weight 2.722 kg Weight in Pounds 6.0 lbs Weight Measurement Method Estimated by Patient Body Mass Index (BMI) 0.0 BMI Classification Underweight BSA - [place] 7.58 Vital Signs Temperature (97.8 F-99.1 F) 98.3 F Temperature Source Temporal Pulse Rate (60-100) 64 Pulse Location Monitor Respiratory Rate (12-18) 16 Respiratory rate source Observation Oxygen Delivery Method Room Air Blood Pressure (90/60-120/80) 148/70 H Blood Pressure Mean (mm Hg) 96 Source Monitor Position Sitting Blood Pressure Location Right Forearm History Since Last Visit- (Skip if this is Patient's initial visit) Left Footwear Regular Shoe Right Footwear Regular Shoe Pain Scale: 0-10 Numeric Is Patient Pain Free? Yes Lower Extremity Assessment/ Foot Assessment/ Toe Nail Assessment Right -Lower Extremity Comment (If N/A Above BLE W/ 2-3+ ) pitting/puffy edema -Posterior Tibial Palpable No -Posterior Tibial Doppler Multiphasic -Dorsalis Pedis Palpable No -Dorsalis Pedis Doppler Multiphasic -Extremity Color Hyperpigmented -Hair Growth on Legs No -Hair Growth on Toes No -Temperature of Extremity Warm -Other Deformity No -Prior Foot Ulcer No -Charcot Joint No -Prior Amputation No -Thick Yes -Discolored Yes -Deformed No -Improper Length & Hygeine No Left -Lower Extremity Comment (If N/A Above 2-3+ PUFFY/ ) PITTING EDEMA BLE -Posterior Tibial Palpable No -Posterior Tibial Doppler Multiphasic -Dorsalis Pedis Palpable No -Dorsalis Pedis Doppler Multiphasic -Extremity Color Pale -Hair Growth on Legs No -Hair Growth on Toes No -Temperature of Extremity Warm -Other Deformity No -Prior Foot Ulcer No -Charcot Joint No -Thick Yes -Discolored Yes -Deformed No -Improper Length & Hygeine No Neuropathy Assessment Feet - Top Side and Bottom <Entered> (a) Communication Assessment Preferred language Romansh Creative Writing Teacher Required No Right Hearing Abillity Hard of Hearing ,Use of Hearing Aid Left Hearing Abillity Hard of Hearing ,Use of Hearing Aid Visual Assistive Devices Legally Blind Teaching Assessment Preferences Verbal,Written, Audio/Visual, Demonstration Barriers to Learning None Readiness To Learn Excellent Willingness to Engage in Self Management High Activies Readiness to Engage in Self Management High Activities Anxiety Level Calm Cooperation Cooperative Perception Coherent Interest in Health Problem Asks Questions Education Importance Acknowledges Need Does Patient Smoke tobacco or other No substances Smoking Status Former smoker Is Patient Diabetic Yes (a) 1 - - WC - Nurse 1 - General Ulcer Measurement Start: 03/30/23 13:52 Freq: Status: Active Protocol: Activity Type Activity Date Activity User E-sign Co-sign Detail Recorded Client Recorded Date Recorded By Document 03/30/23 13:59 [facility] Desktop 03/30/23 14:17 [facility] 03/30/23 13:59 Wound Center Nurse 1 #5- R MEDIAL HEEL -Combined with other wound No -Current Size (cm) - Length 2.1 -Current Size (cm) - Width 1.5 -Current Size (cm) - Depth 0.1 -Total Square Cm 3.15 -Date of Last Picture (Recall this 03/30/23 field) -Photo Taken Yes -Epithelialization None Present -Tunneling No -Undermining/Tunneling No -Circular Undermining No -Exudate Amt None Present -Wound Margin Distinct, Outline Attached -Texture (Hannah-wound Skin Appearance) Assessed -Moisture (Hannah-wound Skin Appearance) Assessed -Color (Hannah-wound Skin Appearance) Assessed -Temperature (Hannah-wound Skin No Abnormality Appearance) (Pt Warm) -Tenderness on Palpation (Hannah-wound No Skin Appearance) -Ulcer Cleansing Soap and Water -Foul Odor after Cleansing No -Anesthetic Used 5% Lidocaine Gel -Wound Comment(s) PRESENTS A BLISTER #4- L MED HEEL -Combined with other wound No -Current Size (cm) - Length 5.7 -Current Size (cm) - Width 3.8 -Current Size (cm) - Depth 0.1 -Total Square Cm 21.66 -Date of Last Picture (Recall this 03/30/23 field) -Photo Taken Yes -Epithelialization None Present -Tunneling No -Undermining/Tunneling No -Circular Undermining No -Exudate Amt Medium -Exudate Type Serosanguineous -Wound Margin Distinct, Outline Attached -Granulation Amt Medium (34-66%) -Granulation Quality [place] -Slough/Fibrin Yes -Necrosis Amt Medium (34-66%) -Necrotic Tissue Type Adherent Slough -Texture (Hannah-wound Skin Appearance) Assessed,Callus ,Scarring -Moisture (Hannah-wound Skin Appearance) Assessed,Dry/ Scaly -Color (Hannah-wound Skin Appearance) Assessed, Erythema -Temperature (Hannah-wound Skin No Abnormality Appearance) (Pt Warm) -Tenderness on Palpation (Hannah-wound No Skin Appearance) -Ulcer Cleansing Soap and Water -Foul Odor after Cleansing No -Anesthetic Used 5% Lidocaine Gel Lower Limb Edema Present Yes Right Calf (cm) 49.7 Right Ankle (cm) 31.5 Left Calf (cm) 47.2 Left Ankle (cm) 30 WC - Nurse 2 - General Ulcer CM Notes Start: 03/30/23 13:52 Freq: Status: Active Protocol: Activity Type Activity Date Activity User E-sign Co-sign Detail Recorded Client Recorded Date Recorded By Document 03/30/23 14:46 Laptop 03/30/23 14:54 03/30/23 14:46 Wound Center Nurse 2 #5- R MEDIAL HEEL -Time 14:47 -Correct Patient Yes -Correct Side, Site, Position Yes -Correct Procedure Yes -Procedure Performed Yes -Type of Procedure Debridement -Clinical Debridement Subcutaneous -Tissue Removed Subcutaneous -Post Debridement (cm) - Length 1.3 -Post Debridement (cm) - Width 2.0 -Post Debridement (cm) - Depth 0.2 -Total Square (Post) (cm) 2.60 -Area of Debridement (cm) - Length 1.3 -Area of Debridement (cm) - Width 2.0 -Total Square (Area) (cm) 2.60 -Tunneling No -Undermining/Tunneling No -Circular Undermining No -Wound/Ulcer Outcome Not Healed -Ulcer Cleansing Rinsed/ Irrigated with Saline -Foul Odor after Cleansing No -Bioengineered Tissue No -Bleeding Controlled with Pressure -Treatment Response Procedure Tolerated Well -Offloading No -Debridement - Subq, 1st 20sq cm No #4- L MED HEEL -Time 14:47 -Correct Patient Yes -Correct Side, Site, Position Yes -Correct Procedure Yes -Procedure Performed Yes -Type of Procedure Debridement -Clinical Debridement Subcutaneous -Tissue Removed Subcutaneous -Post Debridement (cm) - Length 4.3 -Post Debridement (cm) - Width 6.2 -Post Debridement (cm) - Depth 0.2 -Total Square (Post) (cm) 26.66 -Area of Debridement (cm) - Length 4.3 -Area of Debridement (cm) - Width 6.2 -Total Square (Area) (cm) 26.66 -Tunneling No -Undermining/Tunneling No -Circular Undermining No -Wound/Ulcer Outcome Not Healed -Ulcer Cleansing Rinsed/ Irrigated with Saline -Foul Odor after Cleansing No -Bioengineered Tissue No -Bleeding Controlled with Pressure -Treatment Response Procedure Tolerated Well -Offloading No -Debridement - Subq, 1st 20sq cm Yes -Debridement, SubQ, ea addt'l 20sq cm 1 or part thereof Pain Scale: 0-10 Numeric Is Patient Pain Free? Yes - Nurse 3 - General Ulcer D/C NN Start: 03/30/23 13:52 Freq: Status: Active Protocol: Activity Type Activity Date Activity User E-sign Co-sign Detail Recorded Client Recorded Date Recorded By Document 03/30/23 15:03 KW Desktop 03/30/23 15:04 KW 03/30/23 15:03 Wound Care Center Nurse 3 #5- R MEDIAL HEEL -Ulcer Cleansing Rinsed/ Irrigated with Saline -Primary Dressing Applied Promogran Catherine Matter -Primary Dressing Covered/Secured with Dry Gauze & Roll Gauze, Secured with Tape -Promogran Catherine Matter 1 #4- L MED HEEL -Ulcer Cleansing Rinsed/ Irrigated with Saline -Primary Dressing Applied Optilok 6.5x10 -Primary Dressing Covered/Secured with Dry Gauze & Roll Gauze, Secured with Tape -Optilok 6.5x10 1 Pain Scale: 0-10 Numeric Is Patient Pain Free? Yes - Visit Discharge Discharge Condition Stable Ambulatory Status Wheelchair Transportation Private Auto Accompanied by Medication Reconcilliation completed & No provided to patient/care provider Clinical Summary of Care Provided Yes Assessment/Plan Assessment/Plan (1) Non-pressure chronic ulcer of other part of right foot with fat layer exposed: CODE(S): L97.512 - Non-pressure chronic ulcer of other part of right foot with fat layer exposed PLAN: Patient was examined and evaluated. All findings were discussed with the patient. All questions were answered to the patient satisfaction. Excisional debridement down to and including subcutaneous tissue with a number 5 mm dermal curette to the right heel full-thickness ulceration without incident. Predebridement measurement was bullae, postdebridement measurement is 1.3 x 0.7 x 0.1 cm. Excisional debridement down to including subcutaneous tissue with a number 5 mm dermal curette to the left heel full-thickness ulceration without incident. Predebridement measurement is 4.0 x 5.8 x 0.2 cm. Postdebridement measurement is 4.3 x 6.2 x 0.2 cm. After debridement the wound shows evidence of a greenish colorization concerning for Pseudomonas infection. The right lower extremity was dressed with Catherine, Betadine paint and a compression bandage was done. The left lower extremity was dressed with Betadine soaked gauze, dry sterile dressing and a compression bandage. The patient will be placed on ciprofloxacin for 2 weeks 75 mg to be taken twice daily until gone. Culture was also taken of the left lower extremity antibiotics will be adjusted as needed. Patient will follow-up with Dr. Spann at the wound care center in 1 week. (2) Non-pressure chronic ulcer of other part of left foot with fat layer exposed: CODE(S): L97.522 - Non-pressure chronic ulcer of other part of left foot with fat layer exposed (3) Cellulitis: QUALIFIERS: Site of cellulitis: extremity Site of cellulitis of extremity: lower extremity Laterality: left Qualified Code(s): L03.116 - Cellulitis of left lower limb
[2023-04-04 14:50] VITALS: BP 169/71; PULSE 64; RESP 16; TEMP 35.1
[2023-04-06 14:37] VITALS: BP 155/77; RESP 62; TEMP 36.6
--- NOTE | 2023-04-06 15:12 | PN.PCM_ITS ---
History of Present Illness Date of Service: 04/06/23 Chief Complaint: Right foot ulcer History of Wound: This 76-year-old male with significant PMHx of diabetes type II with peripheral polyneuropathy, atrial fibrillation, hyperlipidemia, HTN, blindness, insomnia, history of acute renal failure, retinitis pigmentosa, Kaposi sarcoma right foot, and history of venous insufficiency with multiple procedural interventions was seen for right and left foot ulcer. Last seen by Dr. Moore, vascular specialist in 2020. Patient has not gone back for continued evaluation. Does have confirmed venous insufficiency of the great saphenous vein bilateral with bilateral lower extremity edema and lymphedema. He denies N/V/F/chills. He denies redness or odor to the foot bilateral. He is with his today. states that he had been following with Orly Abbasi.P.Aura in office following dispense of Sigvaris compression wrap and bilateral AFO braces made by [facility] [employer]. states that these braces have caused rubbing on the inside of the heel of both feet that had formed a blister and eventually broke open into a wound. States that they have not healed in the last month and Dr. Hernandez referred them to the wound care center for further evaluation. Subjective Subjective santiago Renae is a 77-year-old diabetic male who is presenting to the wound care center today for follow-up and evaluation of bilateral heel wounds. Patient is legally blind. His wound care at home is provided by his . Patient has history of chronic wound to the medial heels secondary to pressure. The admits that the left heel is odorous and has a greenish tent. She admits that the right heel has evidence of a blister. Patient is a uncontrolled diabetic. He denies trauma. Denies constitutional symptoms. No other pedal complaints at this time. Objective Data Objective Data Vital Signs: Vital Signs Temp Pulse Resp BP O2 Del Method 97.8 F 64 62 H 155/77 H Room Air 04/06/23 14:37 04/04/23 14:50 04/06/23 14:37 04/06/23 14:37 04/06/23 14:37 Oxygen Delivery Method Room Air Weight: 2.722 kg Body Mass Index (BMI) 0.0 Lab / Micro Data Micro: Microbiology 03/31/23 Unknown Wound - Heel, Left Gram Stain - Final 03/31/23 Unknown Wound - Heel, Left Wound Culture - Final Proteus mirabilis Staphylococcus cohnii urealyti 03/31/23 Unknown Wound - Heel, Left Anaerobic Culture - Final No anaerobic bacteria isolated. Physical Exam Narrative Vascular: DP and PT pulses are palpable. CFT is brisk. +1 pitting edema appreciated to bilateral lower extremity. Evidence of blanchable erythema appreciated to the bilateral heels. Neurological: Light touch intact. Protective sensation is absent. Patient does not respond to painful stimuli. Dermatological: Full-thickness ulceration appreciated to bilateral heels. The right full-thickness ulceration in healed. The left medial heel ulceration measures 2.4 x 3.0 x 0.2 cm. Wound base to the right heel is under percent granular nature. Greenish pigmentation has resided. The right heel shows no evidence of infection. Excisional debridement down to including subcutaneous tissue with a number 5 mm dermal curette to the left heel full-thickness ulceration without incident. Predebridement measurement is 2.0 x 2.0 x 0.1 cm. Postdebridement measurement is 2.4 x 3.0 x 0.1 cm. Musculoskeletal: No pain on palpation to the full-thickness ulceration. No pain with calf compression. Debridement Note Debridement Note Debridement Free Text: Excisional debridement down to including subcutaneous tissue with a number 5 mm dermal curette to the left heel full-thickness ulceration without incident. Predebridement measurement is 2.0 x 2.0 x 0.1 cm. Postdebridement measurement is 2.4 x 3.0 x 0.1 cm. Post-Debridement Measurements and Additional Note: Post-Debridement Measurements/Treatment - Nurse 1 - General Ulcer Assessment Start: 03/30/23 13:52 Freq: Status: Active Protocol: JORGE Activity Type Activity Date Activity User E-sign Co-sign Detail Recorded Client Recorded Date Recorded By Document 03/30/23 13:59 [facility] Desktop 03/30/23 14:17 [facility] Document 04/04/23 14:50 [facility] Desktop 04/04/23 14:57 [facility] Document 04/06/23 14:37 Desktop 04/06/23 14:49 03/30/23 04/04/23 04/06/23 13:59 14:50 14:37 WC - Today's Visit Information Type of service Initial Visit Nurse-only Follow-up Visit Visit (Physician/HAND LASTER ) Arrival Mode Wheelchair Wheelchair Ambulatory, Walker Transfer Assistance Other Other None Transfer Assist (Other) 1 STAND BY 2 Accompanied by Patient Identification Verified (Name & Yes Yes Yes ) Patient Requires Transmission-Based No No No Precautions Finger Stick Blood Sugar(mg/dl) (if 138 indicated): Blood Sugar Stated by Patient Height and Weight Height 270 ft Weight 2.722 kg Weight in Pounds 6.0 lbs Weight Measurement Method Estimated by Patient Body Mass Index (BMI) 0.0 0.0 0.0 BMI Classification Underweight Underweight Underweight BSA - [place] 7.58 Vital Signs Temperature (97.8 F-99.1 F) 98.3 F 95.2 F L 97.8 F Temperature Source Temporal Temporal Temporal Pulse Rate (60-100) 64 64 Pulse Location Monitor Monitor Monitor Respiratory Rate (12-18) 16 16 62 H Respiratory rate source Observation Observation Observation Oxygen Delivery Method Room Air Room Air Room Air Blood Pressure (90/60-120/80) 148/70 H 169/71 H 155/77 H Blood Pressure Mean (mm Hg) 96 103 103 Source Monitor Monitor Monitor Position Sitting Sitting Sitting Blood Pressure Location Right Forearm Left Arm Left Arm History Since Last Visit- (Skip if this is Patient's initial visit) Have you changed medications since your No No last visit? Any new allergies or adverse reactions No No Had a fall/change in ADL's that may No No increase risk of falls Signs or symptoms of abuse and/or No No neglect since last visit Have you been in the hospital since your No No last visit? Has dressing in place as prescribed Yes Yes Has compression in place as prescribed Yes Yes Has offloadiing in place as prescribed N/A N/A Experienced any changes in pain level or No No management Left Footwear Regular Shoe Regular Shoe Regular Shoe Right Footwear Regular Shoe Regular Shoe Regular Shoe Pain Scale: 0-10 Numeric Is Patient Pain Free? Yes Yes Yes Lower Extremity Assessment/ Foot Assessment/ Toe Nail Assessment Right -Lower Extremity Comment (If N/A Above BLE W/ 2-3+ ) pitting/puffy edema -Posterior Tibial Palpable No -Posterior Tibial Doppler Multiphasic -Dorsalis Pedis Palpable No -Dorsalis Pedis Doppler Multiphasic -Extremity Color Hyperpigmented -Hair Growth on Legs No -Hair Growth on Toes No -Temperature of Extremity Warm -Other Deformity No -Prior Foot Ulcer No -Charcot Joint No -Prior Amputation No -Thick Yes -Discolored Yes -Deformed No -Improper Length & Hygeine No Left -Lower Extremity Comment (If N/A Above 2-3+ PUFFY/ ) PITTING EDEMA BLE -Posterior Tibial Palpable No -Posterior Tibial Doppler Multiphasic -Dorsalis Pedis Palpable No -Dorsalis Pedis Doppler Multiphasic -Extremity Color Pale -Hair Growth on Legs No -Hair Growth on Toes No -Temperature of Extremity Warm -Other Deformity No -Prior Foot Ulcer No -Charcot Joint No -Thick Yes -Discolored Yes -Deformed No -Improper Length & Hygeine No Neuropathy Assessment Feet - Top Side and Bottom <Entered> (a) Communication Assessment Preferred language [place]er Nuclear Control Operator Required No Right Hearing Abillity Hard of Hearing ,Use of Hearing Aid Left Hearing Abillity Hard of Hearing ,Use of Hearing Aid Visual Assistive Devices Legally Blind Teaching Assessment Preferences Verbal,Written, Audio/Visual, Demonstration Barriers to Learning None Readiness To Learn Excellent Willingness to Engage in Self Management High Activies Readiness to Engage in Self Management High Activities Anxiety Level Calm Cooperation Cooperative Perception Coherent Interest in Health Problem Asks Questions Education Importance Acknowledges Need Does Patient Smoke tobacco or other No substances Smoking Status Former smoker Is Patient Diabetic Yes (a) 1 - - - Nurse 1 - General Ulcer Measurement Start: 03/30/23 13:52 Freq: Status: Active Protocol: Activity Type Activity Date Activity User E-sign Co-sign Detail Recorded Client Recorded Date Recorded By Document 03/30/23 13:59 [facility] Desktop 03/30/23 14:17 [facility] Document 04/04/23 14:50 [facility] Desktop 04/04/23 14:57 [facility] Document 04/06/23 14:37 Desktop 04/06/23 14:49 03/30/23 04/04/23 04/06/23 13:59 14:50 14:37 Wound Center Nurse 1 #5- R MEDIAL HEEL -Combined with other wound No No -Current Size (cm) - Length 2.1 0.1 -Current Size (cm) - Width 1.5 0.1 -Current Size (cm) - Depth 0.1 0.1 -Total Square Cm 3.15 0.01 -Date of Last Picture (Recall this 03/30/23 04/06/23 field) -Photo Taken Yes Yes -Epithelialization None Present None Present -Tunneling No No -Undermining/Tunneling No No -Circular Undermining No No -Exudate Amt None Present None Present -Wound Margin Distinct, Flat & Intact Outline Attached -Slough/Fibrin Yes -Necrosis Amt Small (1-33%) -Necrotic Tissue Type Adherent Slough -Structure Exposed N/A -Texture (Hannah-wound Skin Appearance) Assessed Assessed -Moisture (Hannah-wound Skin Appearance) Assessed Assessed -Color (Hannah-wound Skin Appearance) Assessed Assessed -Temperature (Hannah-wound Skin No Abnormality No Abnormality Appearance) (Pt Warm) (Pt Warm) -Tenderness on Palpation (Hannah-wound No No Skin Appearance) -Ulcer Cleansing Soap and Water Soap and Water -Foul Odor after Cleansing No No -Anesthetic Used 5% Lidocaine 5% Lidocaine Gel Gel -Wound Comment(s) PRESENTS A BLISTER #4- L MED HEEL -Combined with other wound No No -Current Size (cm) - Length 5.7 1.7 -Current Size (cm) - Width 3.8 2.4 -Current Size (cm) - Depth 0.1 0.2 -Total Square Cm 21.66 4.08 -Date of Last Picture (Recall this 03/30/23 04/06/23 field) -Photo Taken Yes Yes -Epithelialization None Present Medium 34-66% -Tunneling No No -Undermining/Tunneling No No -Circular Undermining No No -Exudate Amt Medium Medium -Exudate Type Serosanguineous Yellow/Green -Wound Margin Distinct, Distinct, Outline Outline Attached Attached -Granulation Amt Medium (34-66%) Medium (34-66%) -Granulation Quality [place] -Slough/Fibrin Yes Yes -Necrosis Amt Medium (34-66%) Small (1-33%) -Necrotic Tissue Type Adherent Slough Adherent Slough -Structure Exposed N/A -Texture (Hannah-wound Skin Appearance) Assessed,Callus Assessed ,Scarring -Moisture (Hannah-wound Skin Appearance) Assessed,Dry/ Assessed, Scaly Maceration -Color (Hannah-wound Skin Appearance) Assessed, Assessed Erythema -Temperature (Hannah-wound Skin No Abnormality No Abnormality Appearance) (Pt Warm) (Pt Warm) -Tenderness on Palpation (Hannah-wound No No Skin Appearance) -Ulcer Cleansing Soap and Water Soap and Water -Foul Odor after Cleansing No No -Anesthetic Used 5% Lidocaine 5% Lidocaine Gel Gel Lower Limb Edema Present Yes Yes Right Calf (cm) 49.7 47.2 46.1 Right Ankle (cm) 31.5 31.2 31.6 Left Calf (cm) 47.2 44 45.6 Left Ankle (cm) 30 32.5 31 WC - Nurse 2 - General Ulcer CM Notes Start: 03/30/23 13:52 Freq: Status: Active Protocol: Activity Type Activity Date Activity User E-sign Co-sign Detail Recorded Client Recorded Date Recorded By Document 03/30/23 14:46 Laptop 03/30/23 14:54 Document 04/06/23 15:04 Laptop 04/06/23 15:05 03/30/23 04/06/23 14:46 15:04 Wound Center Nurse 2 #5- R MEDIAL HEEL -Time 14:47 -Correct Patient Yes No -Correct Side, Site, Position Yes No -Correct Procedure Yes No -Procedure Performed Yes No -Type of Procedure Debridement -Clinical Debridement Subcutaneous -Tissue Removed Subcutaneous -Post Debridement (cm) - Length 1.3 0 -Post Debridement (cm) - Width 2.0 0 -Post Debridement (cm) - Depth 0.2 0 -Total Square (Post) (cm) 2.60 0 -Area of Debridement (cm) - Length 1.3 0 -Area of Debridement (cm) - Width 2.0 0 -Total Square (Area) (cm) 2.60 0 -Tunneling No -Undermining/Tunneling No -Circular Undermining No -Wound/Ulcer Outcome Not Healed Healed- Epithelialized -Ulcer Cleansing Rinsed/ Irrigated with Saline -Foul Odor after Cleansing No -Bioengineered Tissue No -Bleeding Controlled with Pressure -Treatment Response Procedure Tolerated Well -Offloading No -Debridement - Subq, 1st 20sq cm No #4- L MED HEEL -Time 14:47 15:05 -Correct Patient Yes Yes -Correct Side, Site, Position Yes Yes -Correct Procedure Yes Yes -Procedure Performed Yes Yes -Type of Procedure Debridement Debridement -Clinical Debridement Subcutaneous Subcutaneous -Tissue Removed Subcutaneous Subcutaneous -Post Debridement (cm) - Length 4.3 2.4 -Post Debridement (cm) - Width 6.2 3.0 -Post Debridement (cm) - Depth 0.2 0.1 -Total Square (Post) (cm) 26.66 7.20 -Area of Debridement (cm) - Length 4.3 2.4 -Area of Debridement (cm) - Width 6.2 3.0 -Total Square (Area) (cm) 26.66 7.20 -Tunneling No No -Undermining/Tunneling No No -Circular Undermining No No -Wound/Ulcer Outcome Not Healed Not Healed -Ulcer Cleansing Rinsed/ Rinsed/ Irrigated with Irrigated with Saline Saline -Foul Odor after Cleansing No No -Bioengineered Tissue No No -Bleeding Controlled with Pressure Pressure -Treatment Response Procedure Procedure Tolerated Well Tolerated Well -Offloading No No -Debridement - Subq, 1st 20sq cm Yes Yes -Debridement, SubQ, ea addt'l 20sq cm 1 or part thereof Pain Scale: 0-10 Numeric Is Patient Pain Free? Yes Yes WC - Nurse 3 - General Ulcer D/C NN Start: 03/30/23 13:52 Freq: Status: Active Protocol: Activity Type Activity Date Activity User E-sign Co-sign Detail Recorded Client Recorded Date Recorded By Document 03/30/23 15:03 KW Desktop 03/30/23 15:04 KW Edit Result 03/30/23 15:03 KW (1) [id number] 03/31/23 06:53 PL Document 04/04/23 14:57 BMF Desktop 04/04/23 15:12 BMF (1) Bilateral - Multi-Layered Wrap Application => Multi-Layer Comp - => Bilat ($) 03/30/23 04/04/23 15:03 14:57 Wound Care Center Nurse 3 #5- R MEDIAL HEEL -Ulcer Cleansing Rinsed/ Rinsed/ Irrigated with Irrigated with Saline Saline -Foul Odor after Cleansing No -Primary Dressing Applied Promogran Promogran Catherine Matter Catherine Matter -Primary Dressing Covered/Secured with Dry Gauze & Dry Gauze Roll Gauze, Secured with Tape -Promogran Catherine Matter 1 1 #4- L MED HEEL -Ulcer Cleansing Rinsed/ Rinsed/ Irrigated with Irrigated with Saline Saline -Foul Odor after Cleansing No -Primary Dressing Applied Optilok 6.5x10 -Other Dressing betadine soaked gauze -Primary Dressing Covered/Secured with Dry Gauze & Roll Gauze, Secured with Tape -Other Covering heel hat -Optilok 6.5x10 1 Bilateral -Multi-Layered Wrap Application Multi-Layer Multi-Layer Comp - Bilat ($ Comp - Bilat ($ ) ) Treatment Response Procedure Tolerated Well Pain Scale: 0-10 Numeric Is Patient Pain Free? Yes Yes WC - Visit Discharge Discharge Condition Stable Stable Ambulatory Status Wheelchair Wheelchair Transportation Private Auto Private Auto Accompanied by Medication Reconcilliation completed & No provided to patient/care provider Clinical Summary of Care Provided Yes Assessment/Plan Assessment/Plan (1) Non-pressure chronic ulcer of other part of left foot with fat layer exposed: CODE(S): L97.522 - Non-pressure chronic ulcer of other part of left foot with fat layer exposed PLAN: Patient was examined and evaluated. All findings were discussed with the patient. All questions were answered to the patient's satisfaction. Excisional debridement down to including subcutaneous tissue with a number 5 mm dermal curette to the left heel full-thickness ulceration without incident. Predebridement measurement is 2.0 x 2.0 x 0.1 cm. Postdebridement measurement is 2.4 x 3.0 x 0.1 cm. Patient's right heel is now healed. The left lower extremity full-thickness ulceration dressed with Betadine soaked gauze, dry sterile dressing and bilateral 3M compression wraps were donned to the bilateral lower extremity. Patient will follow-up Tuesday for dressing changes. Patient will continue to take his Cipro as prescribed and I will add doxycycline 100 mg twice daily for 10 days. Follow-up at the wound care center with Dr. Spann in 1 week. (2) Bilateral edema of lower extremity: CODE(S): R60.0 - Localized edema (3) Acute painful diabetic polyneuropathy: CODE(S): E11.42 - Type 2 diabetes mellitus with diabetic polyneuropathy
== END 2023-04-06 23:59 | disposition home or self-care (01) ==
LOC: WC 14:30
PROVIDERS: PCP Internal Medicine; Referring Provider Internal Medicine; Visit Provider Podiatrist Foot & Ankle Surgery
DX: E11.621 Type 2 diabetes mellitus with foot ulcer (principal); L97.422 Non-pressure chronic ulcer of left heel and midfoot with fat layer exposed; L97.412 Non-pressure chronic ulcer of right heel and midfoot with fat layer exposed; E11.42 Type 2 diabetes mellitus with diabetic polyneuropathy; I48.91 Unspecified atrial fibrillation; Z79.4 Long term (current) use of insulin; L03.116 Cellulitis of left lower limb; I10 Essential (primary) hypertension; H54.8 Legal blindness, as defined in USA; R60.0 Localized edema; I87.2 Venous insufficiency (chronic) (peripheral); I89.0 Lymphedema, not elsewhere classified; G47.00 Insomnia, unspecified; E78.5 Hyperlipidemia, unspecified; Z79.01 Long term (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 of anticoagulants; Z79.899 Other long term (current) drug therapy
CPT/HCPCS: 11042; 11045; 29581; 87070; 87075; 87077; 87101; 87186; 87205; 99213; G0463

== ENCOUNTER 2023-05-04 14:30 | Outpatient (RCR) | payer MEDICARE, OTHER, SELFPAY ==
[2023-04-07 00:57] VITALS: BP 155/77; PULSE 64; RESP 62; TEMP 36.6
[2023-04-08 11:36] VITALS: BP 154/68; PULSE 68; RESP 18; TEMP 36.6
[2023-04-13 14:17] VITALS: BP 140/84; PULSE 63; RESP 22; TEMP 36.2
--- NOTE | 2023-04-13 15:47 | PCM.WC.PN ---
History of Present Illness Date of Service: 04/13/23 Chief Complaint: Right foot ulcer History of Wound: This 76-year-old male with significant PMHx of diabetes type II with peripheral polyneuropathy, atrial fibrillation, hyperlipidemia, HTN, blindness, insomnia, history of acute renal failure, retinitis pigmentosa, Kaposi sarcoma right foot, and history of venous insufficiency with multiple procedural interventions was seen for right and left foot ulcer. Last seen by Dr. Moore, vascular specialist in 2020. Patient has not gone back for continued evaluation. Does have confirmed venous insufficiency of the great saphenous vein bilateral with bilateral lower extremity edema and lymphedema. He denies N/V/F/chills. He denies redness or odor to the foot bilateral. He is with his today. states that he had been following with Dr. Natalia Hernandez, [place]P.[place] in office following dispense of Sigvaris compression wrap and bilateral AFO braces made by [employer]. states that these braces have caused rubbing on the inside of the heel of both feet that had formed a blister and eventually broke open into a wound. States that they have not healed in the last month and Dr. Hernandez referred them to the wound care center for further evaluation. Subjective Subjective Mr. Renae is a 77-year-old diabetic male who is presenting to the wound care center today for follow-up and evaluation of bilateral heel wounds. Patient is legally blind. His wound care at home is provided by his . Patient has history of chronic wound to the medial heels secondary to pressure. The admits that the left heel is odorous and has a greenish tent. She admits that the right heel has evidence of a blister. Patient is a uncontrolled diabetic. He denies trauma. Denies constitutional symptoms. No other pedal complaints at this time. Objective Data Objective Data Vital Signs: Vital Signs Temp Pulse Resp BP O2 Del Method 97.2 F L 63 22 H 140/84 H Room Air 04/13/23 14:17 04/13/23 14:17 04/13/23 14:17 04/13/23 14:17 04/08/23 11:36 Oxygen Delivery Method Room Air Weight: 2.722 kg Body Mass Index (BMI) 0.0 Physical Exam Narrative Vascular: DP and PT pulses are palpable. CFT is brisk. +1 pitting edema appreciated to bilateral lower extremity. Evidence of blanchable erythema appreciated to the bilateral heels. Neurological: Light touch intact. Protective sensation is absent. Patient does not respond to painful stimuli. Dermatological: Full-thickness ulceration appreciated to bilateral heels. The right full-thickness ulceration in healed. The left medial heel ulceration measures 2.3 x 1.8 x 0.1 cm. Wound base to the right heel is under percent granular nature. Greenish pigmentation has resided. The right heel shows no evidence of infection. Excisional debridement down to including subcutaneous tissue with a number 5 mm dermal curette to the left heel full-thickness ulceration without incident. Predebridement measurement is 2.0 x 1.6 x 0.1 cm. Postdebridement measurement is 2.3 x 1.8 x 0.1 cm. Musculoskeletal: No pain on palpation to the full-thickness ulceration. No pain with calf compression. Debridement Note Debridement Note Debridement Free Text: Excisional debridement down to including subcutaneous tissue with a number 5 mm dermal curette to the left heel full-thickness ulceration without incident. Predebridement measurement is 2.0 x 1.6 x 0.1 cm. Postdebridement measurement is 2.3 x 1.8 x 0.1 cm. Post-Debridement Measurements and Additional Note: Post-Debridement Measurements/Treatment - Nurse 1 - General Ulcer Assessment Start: 04/08/23 11:36 Freq: Status: Active Protocol: WC.LOWEXT Activity Type Activity Date Activity User E-sign Co-sign Detail Recorded Client Recorded Date Recorded By Document 04/08/23 11:36 KW Desktop 04/08/23 11:41 KW Document 04/13/23 14:17 DL Desktop 04/13/23 14:27 DL 04/08/23 04/13/23 11:36 14:17 - Today's Visit Information Type of service Nurse-only Follow-up Visit Visit (Physician/MOBILE SALES ASSISTANT ) Arrival Mode Ambulatory, Ambulatory, Walker Walker Transfer Assistance None Accompanied by Patient Identification Verified (Name & Yes Yes ) Patient Requires Transmission-Based No Precautions Finger Stick Blood Sugar(mg/dl) (if 78 indicated): Blood Sugar Stated by Patient Height and Weight Body Mass Index (BMI) 0.0 0.0 BMI Classification Underweight Underweight Vital Signs Temperature (97.8 F-99.1 F) 97.9 F 97.2 F L Temperature Source Temporal Temporal Pulse Rate (60-100) 68 63 Pulse Location Monitor Monitor Respiratory Rate (12-18) 18 22 H Respiratory rate source Observation Observation Oxygen Delivery Method Room Air Blood Pressure (90/60-120/80) 154/68 H 140/84 H Blood Pressure Mean (mm Hg) 96 102 Source Monitor Monitor Position Semi-Fowlers Blood Pressure Location Left Arm History Since Last Visit- (Skip if this is Patient's initial visit) Have you changed medications since your No No last visit? Any new allergies or adverse reactions No No Had a fall/change in ADL's that may No No increase risk of falls Signs or symptoms of abuse and/or No No neglect since last visit Have you been in the hospital since your No No last visit? Has dressing in place as prescribed Yes Yes Has compression in place as prescribed Yes Yes Has offloadiing in place as prescribed No N/A Experienced any changes in pain level or No No management Left Footwear Regular Shoe Right Footwear Regular Shoe Pain Scale: 0-10 Numeric Is Patient Pain Free? Yes Yes WC - Nurse 1 - General Ulcer Measurement Start: 04/08/23 11:36 Freq: Status: Active Protocol: Activity Type Activity Date Activity User E-sign Co-sign Detail Recorded Client Recorded Date Recorded By Document 04/08/23 11:36 KW Desktop 04/08/23 11:41 KW Document 04/13/23 14:17 DL Desktop 04/13/23 14:27 DL 04/08/23 04/13/23 11:36 14:17 Wound Center Nurse 1 #4- L MED HEEL -Current Size (cm) - Length 2.4 -Current Size (cm) - Width 2.5 -Current Size (cm) - Depth 0.1 -Total Square Cm 6.00 -Exudate Amt Small -Exudate Type Serosanguineous -Wound Margin Distinct, Outline Attached -Granulation Amt Medium (34-66%) -Granulation Quality [place] -Necrosis Amt Medium (34-66%) -Necrotic Tissue Type Adherent Slough -Texture (Hannah-wound Skin Appearance) Scarring -Moisture (Hannah-wound Skin Appearance) Dry/Scaly -Color (Hannah-wound Skin Appearance) Hemosiderin Staining -Temperature (Hannah-wound Skin No Abnormality Appearance) (Pt Warm) -Tenderness on Palpation (Hannah-wound No Skin Appearance) -Ulcer Cleansing Soap and Water -Foul Odor after Cleansing No -Anesthetic Used 5% Lidocaine Gel Right Calf (cm) 47 48 Right Ankle (cm) 32 33 Left Calf (cm) 48 46.5 Left Ankle (cm) 32 31 [place] - Nurse 2 - General Ulcer CM Notes Start: 04/08/23 11:36 Freq: Status: Active Protocol: Activity Type Activity Date Activity User E-sign Co-sign Detail Recorded Client Recorded Date Recorded By Document 04/13/23 14:43 JF Laptop 04/13/23 14:48 JF 04/13/23 14:43 Wound Center Nurse 2 #4- L MED HEEL -Time 14:43 -Correct Patient Yes -Correct Side, Site, Position Yes -Correct Procedure Yes -Procedure Performed Yes -Type of Procedure Debridement -Clinical Debridement Subcutaneous -Tissue Removed Subcutaneous -Post Debridement (cm) - Length 2.3 -Post Debridement (cm) - Width 1.8 -Post Debridement (cm) - Depth 0.1 -Total Square (Post) (cm) 4.14 -Area of Debridement (cm) - Length 2.3 -Area of Debridement (cm) - Width 1.8 -Total Square (Area) (cm) 4.14 -Tunneling No -Undermining/Tunneling No -Circular Undermining No -Wound/Ulcer Outcome Not Healed -Ulcer Cleansing Rinsed/ Irrigated with Saline -Foul Odor after Cleansing No -Bioengineered Tissue No -Bleeding Controlled with Pressure -Treatment Response Procedure Tolerated Well -Offloading No -Debridement - Subq, 1st 20sq cm Yes Pain Scale: 0-10 Numeric Is Patient Pain Free? Yes - Nurse 3 - General Ulcer D/C NN Start: 04/08/23 11:36 Freq: Status: Active Protocol: Activity Type Activity Date Activity User E-sign Co-sign Detail Recorded Client Recorded Date Recorded By Document 04/08/23 11:36 KW Desktop 04/08/23 11:41 KW Document 04/13/23 14:51 KW Desktop 04/13/23 14:54 KW 04/08/23 04/13/23 11:36 14:51 Vital Signs Temperature (97.8 F-99.1 F) 97.9 F Temperature Source Temporal Pulse Rate (60-100) 68 Pulse Location Monitor Respiratory Rate (12-18) 18 Respiratory rate source Observation Oxygen Delivery Method Room Air Blood Pressure (90/60-120/80) 154/68 H Blood Pressure Mean (mm Hg) 96 Source Monitor Position Semi-Fowlers Blood Pressure Location Left Arm Pain Scale: 0-10 Numeric Is Patient Pain Free? Yes Yes Wound Care Center Nurse 3 #4- L MED HEEL -Primary Dressing Applied Optilok 8x12 Optilok 6.5x10 -Primary Dressing Covered/Secured with Dry Gauze & Dry Gauze & Roll Gauze, Roll Gauze, Secured with Secured with Tape Tape -Optilok 6.5x10 1 -Optilok 8x12 1 BLE -Multi-Layered Wrap Application Multi-Layer Multi-Layer Comp - Bilat ($ Comp - Bilat ($ ) ) WC - Visit Discharge Discharge Condition Stable Ambulatory Status Ambulatory, Walker Transportation Private Auto Medication Reconcilliation completed & No provided to patient/care provider Clinical Summary of Care Provided Yes Assessment/Plan Assessment/Plan (1) Non-pressure chronic ulcer of other part of left foot with fat layer exposed: CODE(S): L97.522 - Non-pressure chronic ulcer of other part of left foot with fat layer exposed PLAN: Patient was examined and evaluated. All findings were discussed with the patient. All questions were answered to the patient's satisfaction. Excisional debridement down to including subcutaneous tissue with a number 5 mm dermal curette to the left heel full-thickness ulceration without incident. Predebridement measurement is 2.0 x 1.6 x 0.1 cm. Postdebridement measurement is 2.3 x 1.8 x 0.1 cm. Patient's ulceration to left heel was dressed with Betadine soaked gauze and a 3M wrap. The patient will either come in for nursing visit or follow-up in [address] Spann. Follow-up at the wound care center with Dr. Spann in 1 week. (2) Acute painful diabetic polyneuropathy: CODE(S): E11.42 - Type 2 diabetes mellitus with diabetic polyneuropathy PLAN: The patient will be following up with Dr. Spann in his private office for evaluation and authorization for diabetic shoes and inserts. During that visit the patient will get a new [employer] form to have his braces adjusted so that offloading/padding can be placed between the interface between the plastic and padding. (3) Bilateral edema of lower extremity: CODE(S): R60.0 - Localized edema
[2023-04-20 14:00] VITALS: BP 158/84; PULSE 60; RESP 18; TEMP 36.1
--- NOTE | 2023-04-20 14:30 | PN.PCM_ITS ---
History of Present Illness Date of Service: 04/20/23 Chief Complaint: Right foot ulcer History of Wound: This 76-year-old male with significant PMHx of diabetes type II with peripheral polyneuropathy, atrial fibrillation, hyperlipidemia, HTN, blindness, insomnia, history of acute renal failure, retinitis pigmentosa, Kaposi sarcoma right foot, and history of venous insufficiency with multiple procedural interventions was seen for right and left foot ulcer. Last seen by Dr. Moore, vascular specialist in 2020. Patient has not gone back for continued evaluation. Does have confirmed venous insufficiency of the great saphenous vein bilateral with bilateral lower extremity edema and lymphedema. He denies N/V/F/chills. He denies redness or odor to the foot bilateral. He is with his today. states that he had been following with Dr. Natalia Hernandez, [place].P.[place]van in office following dispense of Sigvaris compression wrap and bilateral AFO braces made by [employer]. states that these braces have caused rubbing on the inside of the heel of both feet that had formed a blister and eventually broke open into a wound. States that they have not healed in the last month and Dr. Hernandez referred them to the wound care center for further evaluation. Subjective Subjective Mr. Renae is a 77-year-old diabetic male who is presenting to the wound care center today for follow-up and evaluation of bilateral heel wounds. Patient is legally blind. His wound care at home is provided by his . Patient has history of chronic wound to the medial heels secondary to pressure. The admits that the left heel is odorous and has a greenish tent. She admits that the right heel has evidence of a blister. Patient is a uncontrolled diabetic. He denies trauma. Denies constitutional symptoms. No other pedal complaints at this time. Objective Data Objective Data Vital Signs: Vital Signs Temp Pulse Resp BP O2 Del Method 96.9 F L 60 18 158/84 H Room Air 04/20/23 14:00 04/20/23 14:00 04/20/23 14:00 04/20/23 14:00 04/20/23 14:00 Oxygen Delivery Method Room Air Weight: 2.722 kg Body Mass Index (BMI) 0.0 Physical Exam Narrative Vascular: DP and PT pulses are palpable. CFT is brisk. +1 pitting edema appreciated to bilateral lower extremity. Evidence of blanchable erythema appreciated to the bilateral heels. Neurological: Light touch intact. Protective sensation is absent. Patient does not respond to painful stimuli. Dermatological: Full-thickness ulceration appreciated to bilateral heels. The right full-thickness ulceration in healed. The left medial heel ulceration measures 2.3 x 2.5 x 0.1 cm. Wound base to the right heel is under percent granular nature. Greenish pigmentation has resided. The right heel shows no evidence of infection. Excisional debridement down to including subcutaneous tissue with a number 5 mm dermal curette to the left heel full-thickness ulceration without incident. Predebridement measurement is 2.1 x 2.0 x 0.1 cm. Postdebridement measurement i s 2.3 x 2.5 x 0.1 cm. Musculoskeletal: No pain on palpation to the full-thickness ulceration. No pain with calf compression. Debridement Note Debridement Note Debridement Free Text: Excisional debridement down to including subcutaneous tissue with a number 5 mm dermal curette to the left heel full-thickness ulceration without incident. Predebridement measurement is 2.1 x 2.0 x 0.1 cm. Postdebridement measurement is 2.3 x 2.5 x 0.1 cm. Post-Debridement Measurements and Additional Note: Post-Debridement Measurements/Treatment - Nurse 1 - General Ulcer Assessment Start: 04/08/23 11:36 Freq: Status: Active Protocol: [place].LOWMARCIE Activity Type Activity Date Activity User E-sign Co-sign Detail Recorded Client Recorded Date Recorded By Document 04/08/23 11:36 KW Desktop 04/08/23 11:41 KW Document 04/13/23 14:17 DL Desktop 04/13/23 14:27 DL Document 04/20/23 14:00 KW Desktop 04/20/23 14:10 KW 04/08/23 04/13/23 04/20/23 11:36 14:17 14:00 - Today's Visit Information Type of service Nurse-only Follow-up Visit Follow-up Visit Visit (Physician/RETAIL COSMETICS SALES COUNTER MANAGER (Physician/RETAIL COSMETICS SALES COUNTER MANAGER ) ) Arrival Mode Ambulatory, Ambulatory, Ambulatory, Walker Walker Walker Transfer Assistance None Accompanied by Patient Identification Verified (Name & Yes Yes Yes ) Patient Requires Transmission-Based No Precautions Finger Stick Blood Sugar(mg/dl) (if 78 indicated): Blood Sugar Stated by Patient Height and Weight Body Mass Index (BMI) 0.0 0.0 0.0 BMI Classification Underweight Underweight Underweight Vital Signs Temperature (97.8 F-99.1 F) 97.9 F 97.2 F L 96.9 F L Temperature Source Temporal Temporal Temporal Pulse Rate (60-100) 68 63 60 Pulse Location Monitor Monitor Monitor Respiratory Rate (12-18) 18 22 H 18 Respiratory rate source Observation Observation Observation Oxygen Delivery Method Room Air Room Air Blood Pressure (90/60-120/80) 154/68 H 140/84 H 158/84 H Blood Pressure Mean (mm Hg) 96 102 108 Source Monitor Monitor Monitor Position Semi-Fowlers Semi-Fowlers Blood Pressure Location Left Arm Left Arm History Since Last Visit- (Skip if this is Patient's initial visit) Have you changed medications since your No No No last visit? Any new allergies or adverse reactions No No No Had a fall/change in ADL's that may No No No increase risk of falls Signs or symptoms of abuse and/or No No No neglect since last visit Have you been in the hospital since your No No No last visit? Has dressing in place as prescribed Yes Yes Yes Has compression in place as prescribed Yes Yes Yes Has offloadiing in place as prescribed No N/A N/A Experienced any changes in pain level or No No No management Left Footwear Regular Shoe Regular Shoe Right Footwear Regular Shoe Regular Shoe Pain Scale: 0-10 Numeric Is Patient Pain Free? Yes Yes Yes WC - Nurse 1 - General Ulcer Measurement Start: 04/08/23 11:36 Freq: Status: Active Protocol: Activity Type Activity Date Activity User E-sign Co-sign Detail Recorded Client Recorded Date Recorded By Document 04/08/23 11:36 KW Desktop 04/08/23 11:41 KW Document 04/13/23 14:17 DL Desktop 04/13/23 14:27 DL Document 04/20/23 14:00 KW Desktop 04/20/23 14:10 KW 04/08/23 04/13/23 04/20/23 11:36 14:17 14:00 Wound Center Nurse 1 #4- L MED HEEL -Current Size (cm) - Length 2.4 -Current Size (cm) - Width 2.5 -Current Size (cm) - Depth 0.1 -Total Square Cm 6.00 -Exudate Amt Small Medium -Exudate Type Serosanguineous Serosanguineous -Wound Margin Distinct, Distinct, Outline Outline Attached Attached -Granulation Amt Medium (34-66%) Medium (34-66%) -Granulation Quality [place] -Necrosis Amt Medium (34-66%) Medium (34-66%) -Necrotic Tissue Type Adherent Slough Adherent Slough -Texture (Hannah-wound Skin Appearance) Scarring Assessed -Moisture (Hannah-wound Skin Appearance) Dry/Scaly Maceration -Color (Hannah-wound Skin Appearance) Hemosiderin Assessed Staining -Temperature (Hannah-wound Skin No Abnormality No Abnormality Appearance) (Pt Warm) (Pt Warm) -Tenderness on Palpation (Hannah-wound No Skin Appearance) -Ulcer Cleansing Soap and Water Soap and Water -Foul Odor after Cleansing No -Anesthetic Used 5% Lidocaine 5% Lidocaine Gel Gel Right Calf (cm) 47 48 46.2 Right Ankle (cm) 32 33 32 Left Calf (cm) 48 46.5 44.6 Left Ankle (cm) 32 31 33 WC - Nurse 2 - General Ulcer CM Notes Start: 04/08/23 11:36 Freq: Status: Active Protocol: Activity Type Activity Date Activity User E-sign Co-sign Detail Recorded Client Recorded Date Recorded By Document 04/13/23 14:43 Laptop 04/13/23 14:48 Document 04/20/23 14:15 Laptop 04/20/23 14:20 04/13/23 04/20/23 14:43 14:15 Wound Center Nurse 2 #4- L MED HEEL -Time 14:43 14:15 -Correct Patient Yes Yes -Correct Side, Site, Position Yes Yes -Correct Procedure Yes Yes -Procedure Performed Yes Yes -Type of Procedure Debridement Debridement -Clinical Debridement Subcutaneous Subcutaneous -Tissue Removed Subcutaneous Subcutaneous -Post Debridement (cm) - Length 2.3 2.3 -Post Debridement (cm) - Width 1.8 2.5 -Post Debridement (cm) - Depth 0.1 0.1 -Total Square (Post) (cm) 4.14 5.75 -Area of Debridement (cm) - Length 2.3 2.3 -Area of Debridement (cm) - Width 1.8 2.5 -Total Square (Area) (cm) 4.14 5.75 -Tunneling No No -Undermining/Tunneling No No -Circular Undermining No No -Wound/Ulcer Outcome Not Healed Not Healed -Ulcer Cleansing Rinsed/ Rinsed/ Irrigated with Irrigated with Saline Saline -Foul Odor after Cleansing No No -Bioengineered Tissue No No -Bleeding Controlled with Pressure Pressure -Treatment Response Procedure Procedure Tolerated Well Tolerated Well -Offloading No No -Debridement - Subq, 1st 20sq cm Yes Yes Pain Scale: 0-10 Numeric Is Patient Pain Free? Yes Yes - Nurse 3 - General Ulcer D/C NN Start: 04/08/23 11:36 Freq: Status: Active Protocol: Activity Type Activity Date Activity User E-sign Co-sign Detail Recorded Client Recorded Date Recorded By Document 04/08/23 11:36 KW Desktop 04/08/23 11:41 KW Document 04/13/23 14:51 KW Desktop 04/13/23 14:54 KW 04/08/23 04/13/23 11:36 14:51 Vital Signs Temperature (97.8 F-99.1 F) 97.9 F Temperature Source Temporal Pulse Rate (60-100) 68 Pulse Location Monitor Respiratory Rate (12-18) 18 Respiratory rate source Observation Oxygen Delivery Method Room Air Blood Pressure (90/60-120/80) 154/68 H Blood Pressure Mean (mm Hg) 96 Source Monitor Position Semi-Fowlers Blood Pressure Location Left Arm Pain Scale: 0-10 Numeric Is Patient Pain Free? Yes Yes Wound Care Center Nurse 3 #4- L MED HEEL -Primary Dressing Applied Optilok 8x12 Optilok 6.5x10 -Primary Dressing Covered/Secured with Dry Gauze & Dry Gauze & Roll Gauze, Roll Gauze, Secured with Secured with Tape Tape -Optilok 6.5x10 1 -Optilok 8x12 1 BLE -Multi-Layered Wrap Application Multi-Layer Multi-Layer Comp - Bilat ($ Comp - Bilat ($ ) ) WC - Visit Discharge Discharge Condition Stable Ambulatory Status Ambulatory, Walker Transportation Private Auto Medication Reconcilliation completed & No provided to patient/care provider Clinical Summary of Care Provided Yes Assessment/Plan Assessment/Plan (1) Non-pressure chronic ulcer of other part of left foot with fat layer exposed: CODE(S): L97.522 - Non-pressure chronic ulcer of other part of left foot with fat layer exposed PLAN: Patient was examined and evaluated. All findings were discussed with the patient. All questions were answered to the patient's satisfaction. Excisional debridement down to including subcutaneous tissue with a number 5 mm dermal curette to the left heel full-thickness ulceration without incident. Predebridement measurement is 2.1 x 2.0 x 0.1 cm. Postdebridement measurement i s 2.3 x 2.5 x 0.1 cm. Left lower extremity was white clean and patted dry. Betadine soaked gauze were applied over the dressing followed by superabsorber. A 3M wrap was applied to the bilateral lower extremity. Follow-up at the wound care center with Dr. Spann in 1 week. (2) Bilateral edema of lower extremity: CODE(S): R60.0 - Localized edema (3) Peripheral vascular disease: CODE(S): I73.9 - Peripheral vascular disease, unspecified PLAN: At this time since the patient is still very swollen and draining from his full-thickness ulceration to the left foot we will order venous and vascular studies with results to follow. The patient will coordinate with the wound care center to have the wraps removed prior to going to the vascular lab and then return to the wound care center for rewrapping in his 3M compression wraps. Patient was understanding of this.
--- NOTE | 2023-04-25 13:03 | ART_ITS ---
Reason For Study: Edema BLE Procedure A bilateral lower extremity continuous wave Doppler with analog waveform analysis,segmental pressures,and ankle brachial indexes without exercise. Left Segmental Pressures Left brachial= 143mmHg. Left posterior tibial artery = 194mmHg. Left dorsalis pedis artery = 225mmHg. Left digit = 147 mmHg. Right Segmental Pressures Right brachial= 143mmHg. Right posterior tibial artery = >254mmHg. Right dorsalis pedis artery = 218mmHg. Right digit = 183 mmHg. Indices The right ankle brachial index by the posterior tibial artery is NC. The right ankle brachial index by the dorsalis pedis is 1.52. The right digital-brachial index is 1.28. The left ankle brachial index by the posterior tibial artery is 1.36. The left ankle brachial index by the dorsalis pedis is 1.57. The left digital-brachial index is 1.03. VL/Lower Ext Art Exam w/o Exercis Interpretation Summary Triphasic Doppler waveforms are noted at ankle level bilaterally. Pulse-volume recordings appear satisfactory at all levels bilaterally. Resting ankle-brachial indices are supr a-normal bilaterally. Digital-brachial indices are normal bilaterally. There appears to be arterial calcification at ankle level bilaterally. There is no evidence of significant arterial occlusive disease in the lower extremities bilaterally. Ordering Physician: Olaf Spann Referring Physician: Angelia Conway Performed By: Kimmie Lopez RDCS/RVT
--- NOTE | 2023-04-25 13:04 | VDLE_ITS ---
Reason For Study: Edema BLE RIGHT LEFT CFV is compressible, spontaneous, phasic, CFV is compressible, spontaneous, phasic, competent and demonstrates normal competent, and demonstrates normal augmentation. augmentation. FV is compressible, spontaneous, phasic, FV is compressible, spontaneous, phasic, competent and demonstrates normal competent and demonstrates normal augmentation. augmentation. POP V is compressible, spontaneous, phasic, POP V is compressible, spontaneous, phasic, competent and demonstrates normal competent and demonstrates normal augmentation. augmentation. T/P Trunk is compressible. T/P Trunk is compressible. PTV is compressible. PTV is compressible. RT PerV is compressible. LT PerV is compressible. SFJ is competent and measures 0.61cm x 0.61 Heterogenous, non vascular structure noted Lt cm. Pop Fossa measuring 1.38cm x 2.82cm GSV EVLA above knee. GSV EVLA GSV at knee measures 0.24cm x 0.24 cm. SSV EVLA GSV below knee is INCOMPETENT for greater INCOMPETENT perf noted 8cm distal to knee. than 0.5 seconds. SFJ is competent and measures 0.52cm x 0.47 ASV mid calf is INCOMPETENT for greater than cm. 0.5 seconds and measures 0.24cm x 0.23 cm. ASV proximal calf is INCOMPETENT for greater ASV distal calf is INCOMPETENT for greater than 0.5 seconds and measures 0.31cm x 0.35 than 0.5 seconds and measures 0.24cm x 0.25 cm. cm. ASV mid calf is INCOMPETENT for greater than SSV proximal calf is competent and measures 0.5 seconds and measures 0.27cm x 0.26 cm. 0.34cm x 0.31 cm. Procedure This is a venous duplex using B-mode, color flow and spectral Doppler. Exam performed in department. Difficult to visualize calf veins due to body habitus. VL/Venous Duplex US - Wander Extrem Interpretation Summary Deep veins of the lower extremities are bilaterally patent and compressible seg mentally. There is no evidence of deep vein thrombosis on either side. Valvular competence appears in tact within the proximal deep venous systems bilaterally. Sapheno-femoral junctions are bilater ally competent . The right great saphenous vein is absent above the knee. The right great saphenous vein is patent and incompetent below the knee. The left great saphenous vein is absent. The right small saphenous vein is patent and competent. The left small saphenous vein is absent. The accessory saphenous vein in the right mid-calf is incompetent. The accessory saphenous vein in the right di stal calf is incompetent. The accessory saphenous vein in the left proximal calf is incompet ent. The accessory saphenous vein in the left mid-calf is incompetent. An incompetent hair preparer v ein is noted in the left calf, located 8 centimeters distal to the left knee. Ordering Physician: Olaf Spann Referring Physician: Angelia Conway Performed By: Kimmie Lopez, BURT, RVT
[2023-04-25 15:15] VITALS: BP 143/70; PULSE 78; RESP 16; TEMP 37.3
[2023-04-27 14:51] VITALS: BP 148/69; PULSE 66; RESP 18; TEMP 36.2
--- NOTE | 2023-04-27 15:51 | PN.PCM_ITS ---
History of Present Illness Date of Service: 04/27/23 Chief Complaint: Right foot ulcer History of Wound: This 76-year-old male with significant PMHx of diabetes type II with peripheral polyneuropathy, atrial fibrillation, hyperlipidemia, HTN, blindness, insomnia, history of acute renal failure, retinitis pigmentosa, Kaposi sarcoma right foot, and history of venous insufficiency with multiple procedural interventions was seen for right and left foot ulcer. Last seen by Dr. Moore, vascular specialist in 2020. Patient has not gone back for continued evaluation. Does have confirmed venous insufficiency of the great saphenous vein bilateral with bilateral lower extremity edema and lymphedema. He denies N/V/F/chills. He denies redness or odor to the foot bilateral. He is with his today. states that he had been following with Dr. Natalia Hernandez, [facility].P.Aura in office following dispense of Sigvaris compression wrap and bilateral AFO braces made by [employer]. states that these braces have caused rubbing on the inside of the heel of both feet that had formed a blister and eventually broke open into a wound. States that they have not healed in the last month and Dr. Hernandez referred them to the wound care center for further evaluation. Subjective Subjective Mr. Renae is a 77-year-old diabetic male who is presenting to the wound care center today for follow-up and evaluation of bilateral heel wounds. Patient is legally blind. His wound care at home is provided by his . Patient has history of chronic wound to the medial heels secondary to pressure. The admits that the left heel is odorous and has a greenish tent. She admits that the right heel has evidence of a blister. Patient is a uncontrolled diabetic. He denies trauma. Denies constitutional symptoms. No other pedal complaints at this time. Objective Data Objective Data Vital Signs: Vital Signs Temp Pulse Resp BP O2 Del Method 97.2 F L 66 18 148/69 H Room Air 04/27/23 14:51 04/27/23 14:51 04/27/23 14:51 04/27/23 14:51 04/27/23 14:51 Oxygen Delivery Method Room Air Weight: 2.722 kg Body Mass Index (BMI) 0.0 Physical Exam Narrative Vascular: DP and PT pulses are palpable. CFT is brisk. +1 pitting edema appreciated to bilateral lower extremity. Evidence of blanchable erythema appreciated to the bilateral heels. Neurological: Light touch intact. Protective sensation is absent. Patient does not respond to painful stimuli. Dermatological: Full-thickness ulceration left medial heel ulceration measures 2.6 x 3.6 x 0.1 cm. Wound base to the right heel is under granular nature. The right heel shows no evidence of infection. Excisional debridement down to including subcutaneous tissue with a number 5 mm dermal curette to the left heel full-thickness ulceration without incident. Predebridement measurement is 2.3 x 3.6 x 0.1 cm. Postdebridement measurement is 2.6 x 3.6 x 0.1 cm. Musculoskeletal: No pain on palpation to the full-thickness ulceration. No pain with calf compression. Debridement Note Debridement Note Debridement Free Text: Excisional debridement down to including subcutaneous ti ssue with a number 5 mm dermal curette to the left heel full-thickness ulceration without incident. Predebridement measurement is 2.3 x 3.6 x 0.1 cm. Postdebridement measurement is 2.6 x 3.6 x 0.1 cm. Post-Debridement Measurements and Additional Note: Post-Debridement Measurements/Treatment - Nurse 1 - General Ulcer Assessment Start: 04/08/23 11:36 Freq: Status: Active Protocol: JORGE Activity Type Activity Date Activity User E-sign Co-sign Detail Recorded Client Recorded Date Recorded By Document 04/08/23 11:36 KW Desktop 04/08/23 11:41 KW Document 04/13/23 14:17 DL Desktop 04/13/23 14:27 DL Document 04/20/23 14:00 KW Desktop 04/20/23 14:10 KW Document 04/25/23 15:15 DL Desktop 04/25/23 15:28 DL Document 04/27/23 14:51 KW Desktop 04/27/23 15:08 KW 04/08/23 04/13/23 04/20/23 11:36 14:17 14:00 - Today's Visit Information Type of service Nurse-only Follow-up Visit Follow-up Visit Visit (Physician/DOCUMENT IMPROVEMENT SPECIALIST (Physician/DOCUMENT IMPROVEMENT SPECIALIST ) ) Arrival Mode Ambulatory, Ambulatory, Ambulatory, Walker Walker Walker Transfer Assistance None Transfer Assist (Other) Accompanied by Patient Identification Verified (Name & Yes Yes Yes ) Patient Requires Transmission-Based No Precautions Finger Stick Blood Sugar(mg/dl) (if 78 indicated): Blood Sugar Stated by Patient Height and Weight Body Mass Index (BMI) 0.0 0.0 0.0 BMI Classification Underweight Underweight Underweight Vital Signs Temperature (97.8 F-99.1 F) 97.9 F 97.2 F L 96.9 F L Temperature Source Temporal Temporal Temporal Pulse Rate (60-100) 68 63 60 Pulse Location Monitor Monitor Monitor Respiratory Rate (12-18) 18 22 H 18 Respiratory rate source Observation Observation Observation Oxygen Delivery Method Room Air Room Air Blood Pressure (90/60-120/80) 154/68 H 140/84 H 158/84 H Blood Pressure Mean (mm Hg) 96 102 108 Source Monitor Monitor Monitor Position Semi-Fowlers Semi-Fowlers Blood Pressure Location Left Arm Left Arm History Since Last Visit- (Skip if this is Patient's initial visit) Have you changed medications since your No No No last visit? Any new allergies or adverse reactions No No No Had a fall/change in ADL's that may No No No increase risk of falls Signs or symptoms of abuse and/or No No No neglect since last visit Have you been in the hospital since your No No No last visit? Has dressing in place as prescribed Yes Yes Yes Has compression in place as prescribed Yes Yes Yes Has offloadiing in place as prescribed No N/A N/A Experienced any changes in pain level or No No No management Left Footwear Regular Shoe Regular Shoe Right Footwear Regular Shoe Regular Shoe Other Footwear Pain Scale: 0-10 Numeric Is Patient Pain Free? Yes Yes Yes 04/25/23 04/27/23 15:15 14:51 - Today's Visit Information Type of service Nurse-only Follow-up Visit Visit (Physician/DOCUMENT IMPROVEMENT SPECIALIST ) Arrival Mode Wheelchair Transfer Assistance Other Transfer Assist (Other) 1 Accompanied by Patient Identification Verified (Name & Yes Yes ) Patient Requires Transmission-Based No Precautions Finger Stick Blood Sugar(mg/dl) (if indicated): Blood Sugar Height and Weight Body Mass Index (BMI) 0.0 0.0 BMI Classification Underweight Underweight Vital Signs Temperature (97.8 F-99.1 F) 99.2 F H 97.2 F L Temperature Source Temporal Temporal Pulse Rate (60-100) 78 66 Pulse Location Monitor Monitor Respiratory Rate (12-18) 16 18 Respiratory rate source Observation Observation Oxygen Delivery Method Room Air Room Air Blood Pressure (90/60-120/80) 143/70 H 148/69 H Blood Pressure Mean (mm Hg) 94 95 Source Monitor Monitor Position Sitting Semi-Fowlers Blood Pressure Location Left Arm Right Arm History Since Last Visit- (Skip if this is Patient's initial visit) Have you changed medications since your No No last visit? Any new allergies or adverse reactions No No Had a fall/change in ADL's that may No No increase risk of falls Signs or symptoms of abuse and/or No No neglect since last visit Have you been in the hospital since your No No last visit? Has dressing in place as prescribed Yes Yes Has compression in place as prescribed No Yes Has offloadiing in place as prescribed N/A N/A Experienced any changes in pain level or No No management Left Footwear Regular Shoe Regular Shoe Right Footwear Regular Shoe Regular Shoe Other Footwear wraps removed at hospital for testing prior to visit Pain Scale: 0-10 Numeric Is Patient Pain Free? Yes Yes WC - Nurse 1 - General Ulcer Measurement Start: 04/08/23 11:36 Freq: Status: Active Protocol: Activity Type Activity Date Activity User E-sign Co-sign Detail Recorded Client Recorded Date Recorded By Document 04/08/23 11:36 KW Desktop 04/08/23 11:41 KW Document 04/13/23 14:17 DL Desktop 04/13/23 14:27 DL Document 04/20/23 14:00 KW Desktop 04/20/23 14:10 KW Document 04/25/23 15:15 DL Desktop 04/25/23 15:28 DL Document 04/27/23 14:51 KW Desktop 04/27/23 15:08 KW 04/08/23 04/13/23 04/20/23 11:36 14:17 14:00 Wound Center Nurse 1 #4- L MED HEEL -Current Size (cm) - Length 2.4 -Current Size (cm) - Width 2.5 -Current Size (cm) - Depth 0.1 -Total Square Cm 6.00 -Epithelialization -Tunneling -Undermining/Tunneling -Circular Undermining -Exudate Amt Small Medium -Exudate Type Serosanguineous Serosanguineous -Wound Margin Distinct, Distinct, Outline Outline Attached Attached -Granulation Amt Medium (34-66%) Medium (34-66%) -Granulation Quality [place] -Slough/Fibrin -Necrosis Amt Medium (34-66%) Medium (34-66%) -Necrotic Tissue Type Adherent Slough Adherent Slough -Texture (Hannah-wound Skin Appearance) Scarring Assessed -Moisture (Hannah-wound Skin Appearance) Dry/Scaly Maceration -Color (Hannah-wound Skin Appearance) Hemosiderin Assessed Staining -Temperature (Hannah-wound Skin No Abnormality No Abnormality Appearance) (Pt Warm) (Pt Warm) -Tenderness on Palpation (Hannah-wound No Skin Appearance) -Ulcer Cleansing Soap and Water Soap and Water -Foul Odor after Cleansing No -Anesthetic Used 5% Lidocaine 5% Lidocaine Gel Gel Lower Limb Edema Present Right Calf (cm) 47 48 46.2 Right Ankle (cm) 32 33 32 Left Calf (cm) 48 46.5 44.6 Left Ankle (cm) 32 31 33 04/25/23 04/27/23 15:15 14:51 Wound Center Nurse 1 #4- L MED HEEL -Current Size (cm) - Length 4.2 -Current Size (cm) - Width 3 -Current Size (cm) - Depth 0.1 -Total Square Cm 12.6 -Epithelialization Small 1-33% Small 1-33% -Tunneling No -Undermining/Tunneling No -Circular Undermining No -Exudate Amt Medium Large -Exudate Type Serosanguineous Serosanguineous -Wound Margin Distinct, Distinct, Outline Outline Attached Attached -Granulation Amt Large (67-100%) Large (67-100%) -Granulation Quality [place],Red -Slough/Fibrin Yes -Necrosis Amt None Present (0 Small (1-33%) %) -Necrotic Tissue Type Adherent Slough Adherent Slough -Texture (Hannah-wound Skin Appearance) Assessed,Callus Assessed ,Scarring -Moisture (Hannah-wound Skin Appearance) Assessed, Maceration Maceration,Dry/ Scaly -Color (Hannah-wound Skin Appearance) Assessed Assessed -Temperature (Hannah-wound Skin No Abnormality No Abnormality Appearance) (Pt Warm) (Pt Warm) -Tenderness on Palpation (Hannah-wound No Skin Appearance) -Ulcer Cleansing Soap and Water Soap and Water -Foul Odor after Cleansing No -Anesthetic Used 5% Lidocaine Gel Lower Limb Edema Present Yes Right Calf (cm) 48 48.5 Right Ankle (cm) 31.2 38.2 Left Calf (cm) 49.5 49 Left Ankle (cm) 32 38.3 WC - Nurse 2 - General Ulcer CM Notes Start: 04/08/23 11:36 Freq: Status: Active Protocol: Activity Type Activity Date Activity User E-sign Co-sign Detail Recorded Client Recorded Date Recorded By Document 04/13/23 14:43 Laptop 04/13/23 14:48 Document 04/20/23 14:15 Laptop 04/20/23 14:20 Document 04/27/23 15:18 Laptop 04/27/23 15:23 04/13/23 04/20/23 04/27/23 14:43 14:15 15:18 Wound Center Nurse 2 #4- L MED HEEL -Time 14:43 14:15 15:18 -Correct Patient Yes Yes Yes -Correct Side, Site, Position Yes Yes Yes -Correct Procedure Yes Yes Yes -Procedure Performed Yes Yes Yes -Type of Procedure Debridement Debridement Debridement -Clinical Debridement Subcutaneous Subcutaneous Subcutaneous -Tissue Removed Subcutaneous Subcutaneous Subcutaneous -Post Debridement (cm) - Length 2.3 2.3 2.6 -Post Debridement (cm) - Width 1.8 2.5 3.6 -Post Debridement (cm) - Depth 0.1 0.1 0.1 -Total Square (Post) (cm) 4.14 5.75 9.36 -Area of Debridement (cm) - Length 2.3 2.3 2.6 -Area of Debridement (cm) - Width 1.8 2.5 3.6 -Total Square (Area) (cm) 4.14 5.75 9.36 -Tunneling No No No -Undermining/Tunneling No No No -Circular Undermining No No No -Wound/Ulcer Outcome Not Healed Not Healed Not Healed -Ulcer Cleansing Rinsed/ Rinsed/ Rinsed/ Irrigated with Irrigated with Irrigated with Saline Saline Saline -Foul Odor after Cleansing No No No -Bioengineered Tissue No No No -Bleeding Controlled with Pressure Pressure Pressure -Treatment Response Procedure Procedure Procedure Tolerated Well Tolerated Well Tolerated Well -Offloading No No No -Debridement - Subq, 1st 20sq cm Yes Yes Yes Pain Scale: 0-10 Numeric Is Patient Pain Free? Yes Yes Yes - Nurse 3 - General Ulcer D/C NN Start: 04/08/23 11:36 Freq: Status: Active Protocol: Activity Type Activity Date Activity User E-sign Co-sign Detail Recorded Client Recorded Date Recorded By Document 04/08/23 11:36 KW Desktop 04/08/23 11:41 KW Document 04/13/23 14:51 KW Desktop 04/13/23 14:54 KW Document 04/20/23 14:37 KW Desktop 04/20/23 14:38 KW Document 04/25/23 15:15 DL Desktop 04/25/23 15:28 DL Document 04/27/23 15:48 GM Desktop 04/27/23 15:50 GM 04/08/23 04/13/23 04/20/23 11:36 14:51 14:37 Vital Signs Temperature (97.8 F-99.1 F) 97.9 F Temperature Source Temporal Pulse Rate (60-100) 68 Pulse Location Monitor Respiratory Rate (12-18) 18 Respiratory rate source Observation Oxygen Delivery Method Room Air Blood Pressure (90/60-120/80) 154/68 H Blood Pressure Mean (mm Hg) 96 Source Monitor Position Semi-Fowlers Blood Pressure Location Left Arm Pain Scale: 0-10 Numeric Is Patient Pain Free? Yes Yes Yes Wound Care Center Nurse 3 #4- L MED HEEL -Ulcer Cleansing -Foul Odor after Cleansing -Primary Dressing Applied Optilok 8x12 Optilok 6.5x10 Optilok 6.5x10 -Other Dressing -Primary Dressing Covered/Secured with Dry Gauze & Dry Gauze & Dry Gauze & Roll Gauze, Roll Gauze, Roll Gauze, Secured with Secured with Secured with Tape Tape Tape -Other Covering -Aquacel AG 2x2 -Optilok 6.5x10 1 1 -Optilok 8x12 1 BLE -Lotion applied to leg before compression wrap -Multi-Layered Wrap Application Multi-Layer Multi-Layer Multi-Layer Comp - Bilat ($ Comp - Bilat ($ Comp - Bilat ($ ) ) ) Treatment Response WC - Visit Discharge Discharge Condition Stable Stable Ambulatory Status Ambulatory, Walker Walker Transportation Private Auto Private Auto Accompanied by Medication Reconcilliation completed & No No provided to patient/care provider Clinical Summary of Care Provided Yes Yes 04/25/23 04/27/23 15:15 15:48 Vital Signs Temperature (97.8 F-99.1 F) 99.2 F H Temperature Source Temporal Pulse Rate (60-100) 78 Pulse Location Monitor Respiratory Rate (12-18) 16 Respiratory rate source Observation Oxygen Delivery Method Room Air Blood Pressure (90/60-120/80) 143/70 H Blood Pressure Mean (mm Hg) 94 Source Monitor Position Sitting Blood Pressure Location Left Arm Pain Scale: 0-10 Numeric Is Patient Pain Free? Yes Yes Wound Care Center Nurse 3 #4- L MED HEEL -Ulcer Cleansing Not Cleansed -Foul Odor after Cleansing No -Primary Dressing Applied Aquacel AG 2x2 -Other Dressing betadine soaked gauze; -Primary Dressing Covered/Secured with Dry Gauze & Dry Gauze & Roll Gauze, Roll Gauze, Secured with Secured with Tape Tape -Other Covering heel hat w/ fluffed gauzse -Aquacel AG 2x2 1 -Optilok 6.5x10 -Optilok 8x12 BLE -Lotion applied to leg before Yes Yes compression wrap -Multi-Layered Wrap Application Multi-Layer Multi-Layer Comp - Bilat ($ Comp - Bilat ($ ) ) Treatment Response Procedure Tolerated Well WC - Visit Discharge Discharge Condition Stable Stable Ambulatory Status Wheelchair Ambulatory, Walker Transportation Private Auto Private Auto Accompanied by Medication Reconcilliation completed & Yes provided to patient/care provider Clinical Summary of Care Provided Yes Assessment/Plan Assessment/Plan (1) Non-pressure chronic ulcer of other part of left foot with fat layer exposed: CODE(S): L97.522 - Non-pressure chronic ulcer of other part of left foot with fat layer exposed PLAN: Patient was examined and evaluated. All findings were discussed with the patient. All questions were answered to the patient's satisfaction. Excisional debridement down to including subcutaneous tissue with a number 5 mm dermal curette to the left heel full-thickness ulceration without incident. Predebridement measurement is 2.3 x 3.6 x 0.1 cm. Postdebridement measurement is 2.6 x 3.6 x 0.1 cm. Left lower extremities were cleaned and patted dry. Full-thickness ulceration was dressed with Aquacel Ag, dry sterile dressing and bilateral 3M wraps were donned to the lower extremities. Patient was educated to rest and elevate his feet whenever possible. He was understanding of this. Will begin authorization for mechanical pump secondary to patient failing conservative treatment consisting of multilayer compression bandage wraps to bilateral lower extremity. The patient presents with stage II lymphedema. We do recommend elevation, exercise and class I compression stockings however the patient has failed these and will benefit from mechanical pumps to help decrease the size and thickness of his bilateral lower extremity. Follow-up at the wound care center with Dr. Spann in 1 week. (2) Peripheral vascular disease: CODE(S): I73.9 - Peripheral vascular disease, unspecified (3) Acute painful diabetic polyneuropathy: CODE(S): E11.42 - Type 2 diabetes mellitus with diabetic polyneuropathy (4) Lymphedema, not elsewhere classified: CODE(S): I89.0 - Lymphedema, not elsewhere classified
[2023-05-02 14:06] VITALS: BP 135/57; PULSE 57; RESP 18; TEMP 36.4
[2023-05-04 14:35] VITALS: BP 156/71; PULSE 65; RESP 18
--- NOTE | 2023-05-04 15:23 | PCM.WC.PN ---
History of Present Illness Date of Service: 05/04/23 Chief Complaint: Right foot ulcer History of Wound: This 76-year-old male with significant PMHx of diabetes type II with peripheral polyneuropathy, atrial fibrillation, hyperlipidemia, HTN, blindness, insomnia, history of acute renal failure, retinitis pigmentosa, Kaposi sarcoma right foot, and history of venous insufficiency with multiple procedural interventions was seen for right and left foot ulcer. Last seen by Dr. Moore, vascular specialist in 2020. Patient has not gone back for continued evaluation. Does have confirmed venous insufficiency of the great saphenous vein bilateral with bilateral lower extremity edema and lymphedema. He denies N/V/F/chills. He denies redness or odor to the foot bilateral. He is with his today. states that he had been following with Dr. Natalia Hernandez, [place].P.Aura in office following dispense of Sigvaris compression wrap and bilateral AFO braces made by [employer]. states that these braces have caused rubbing on the inside of the heel of both feet that had formed a blister and eventually broke open into a wound. States that they have not healed in the last month and Dr. Hernandez referred them to the wound care center for further evaluation. Subjective Subjective Mr. Renae is a 77-year-old diabetic male who is presenting to the wound care center today for follow-up and evaluation of bilateral heel wounds. Patient is legally blind. His wound care at home is provided by his . Patient has history of chronic wound to the medial heels secondary to pressure. The admits that the left heel is odorous and has a greenish tent. She admits that the right heel has evidence of a blister. Patient is a uncontrolled diabetic. He denies trauma. Denies constitutional symptoms. No other pedal complaints at this time. Objective Data Objective Data Vital Signs: Vital Signs Temp Pulse Resp BP O2 Del Method 97.6 F L 65 18 156/71 H Room Air 05/02/23 14:06 05/04/23 14:35 05/04/23 14:35 05/04/23 14:35 05/04/23 14:35 Oxygen Delivery Method Room Air Weight: 2.722 kg Body Mass Index (BMI) 0.0 Physical Exam Narrative Vascular: DP and PT pulses are palpable. CFT is brisk. +1 pitting edema appreciated to bilateral lower extremity. Evidence of blanchable erythema appreciated to the bilateral heels. Neurological: Light touch intact. Protective sensation is absent. Patient does not respond to painful stimuli. Dermatological: Full-thickness ulceration left medial heel ulceration measures 1.9 x 1.8 x 0.1 cm. Wound base to the right heel is under granular nature. The right heel shows no evidence of infection. Excisional debridement down to including subcutaneous tissue with a number 5 mm dermal curette to the left heel full-thickness ulceration without incident. Predebridement measurement is 1.7 x 1.6 x 0.1 cm. Postdebridement measurement is 1.9 x 1.8 x 0.1 cm. Musculoskeletal: No pain on palpation to the full-thickness ulceration. No pain with calf compression. Debridement Note Debridement Note Debridement Free Text: Excisional debridement down to including subcutaneous tissue with a number 5 mm dermal curette to the left heel full-thickness ulceration without incident. Predebridement measurement is 1.7 x 1.6 x 0.1 cm. Postdebridement measurement is 1.9 x 1.8 x 0.1 cm. Post-Debridement Measurements and Additional Note: Post-Debridement Measurements/Treatment - Nurse 1 - General Ulcer Assessment Start: 04/08/23 11:36 Freq: Status: Active Protocol: JORGE Activity Type Activity Date Activity User E-sign Co-sign Detail Recorded Client Recorded Date Recorded By Document 04/08/23 11:36 KW Desktop 04/08/23 11:41 KW Document 04/13/23 14:17 DL Desktop 04/13/23 14:27 DL Document 04/20/23 14:00 KW Desktop 04/20/23 14:10 KW Document 04/25/23 15:15 DL Desktop 04/25/23 15:28 DL Document 04/27/23 14:51 KW Desktop 04/27/23 15:08 KW Document 05/02/23 14:06 [facility] Desktop 05/02/23 14:12 [facility] Document 05/04/23 14:35 KW Desktop 05/04/23 14:37 KW 04/08/23 04/13/23 04/20/23 11:36 14:17 14:00 - Today's Visit Information Type of service Nurse-only Follow-up Visit Follow-up Visit Visit (Physician/CUSTOMER INSIGHT ANALYST (Physician/CUSTOMER INSIGHT ANALYST ) ) Arrival Mode Ambulatory, Ambulatory, Ambulatory, Walker Walker Walker Transfer Assistance None Transfer Assist (Other) Accompanied by Patient Identification Verified (Name & Yes Yes Yes ) Patient Requires Transmission-Based No Precautions Finger Stick Blood Sugar(mg/dl) (if 78 indicated): Blood Sugar Stated by Patient Height and Weight Body Mass Index (BMI) 0.0 0.0 0.0 BMI Classification Underweight Underweight Underweight Vital Signs Temperature (97.8 F-99.1 F) 97.9 F 97.2 F L 96.9 F L Temperature Source Temporal Temporal Temporal Pulse Rate (60-100) 68 63 60 Pulse Location Monitor Monitor Monitor Respiratory Rate (12-18) 18 22 H 18 Respiratory rate source Observation Observation Observation Oxygen Delivery Method Room Air Room Air Blood Pressure (90/60-120/80) 154/68 H 140/84 H 158/84 H Blood Pressure Mean (mm Hg) 96 102 108 Source Monitor Monitor Monitor Position Semi-Fowlers Semi-Fowlers Blood Pressure Location Left Arm Left Arm History Since Last Visit- (Skip if this is Patient's initial visit) Have you changed medications since your No No No last visit? Any new allergies or adverse reactions No No No Had a fall/change in ADL's that may No No No increase risk of falls Signs or symptoms of abuse and/or No No No neglect since last visit Have you been in the hospital since your No No No last visit? Has dressing in place as prescribed Yes Yes Yes Has compression in place as prescribed Yes Yes Yes Has offloadiing in place as prescribed No N/A N/A Experienced any changes in pain level or No No No management Left Footwear Regular Shoe Regular Shoe Right Footwear Regular Shoe Regular Shoe Other Footwear Pain Scale: 0-10 Numeric Is Patient Pain Free? Yes Yes Yes 04/25/23 04/27/23 05/02/23 15:15 14:51 14:06 - Today's Visit Information Type of service Nurse-only Follow-up Visit Nurse-only Visit (Physician/CUSTOMER INSIGHT ANALYST Visit ) Arrival Mode Wheelchair Ambulatory Transfer Assistance Other Transfer Assist (Other) 1 Accompanied by Patient Identification Verified (Name & Yes Yes Yes ) Patient Requires Transmission-Based No Precautions Finger Stick Blood Sugar(mg/dl) (if indicated): Blood Sugar Height and Weight Body Mass Index (BMI) 0.0 0.0 0.0 BMI Classification Underweight Underweight Underweight Vital Signs Temperature (97.8 F-99.1 F) 99.2 F H 97.2 F L 97.6 F L Temperature Source Temporal Temporal Temporal Pulse Rate (60-100) 78 66 57 L Pulse Location Monitor Monitor Monitor Respiratory Rate (12-18) 16 18 18 Respiratory rate source Observation Observation Observation Oxygen Delivery Method Room Air Room Air Room Air Blood Pressure (90/60-120/80) 143/70 H 148/69 H 135/57 H Blood Pressure Mean (mm Hg) 94 95 83 Source Monitor Monitor Monitor Position Sitting Semi-Fowlers Semi-Fowlers Blood Pressure Location Left Arm Right Arm Left Arm History Since Last Visit- (Skip if this is Patient's initial visit) Have you changed medications since your No No No last visit? Any new allergies or adverse reactions No No No Had a fall/change in ADL's that may No No No increase risk of falls Signs or symptoms of abuse and/or No No No neglect since last visit Have you been in the hospital since your No No No last visit? Has dressing in place as prescribed Yes Yes Yes Has compression in place as prescribed No Yes Yes Has offloadiing in place as prescribed N/A N/A No Experienced any changes in pain level or No No No management Left Footwear Regular Shoe Regular Shoe Regular Shoe Right Footwear Regular Shoe Regular Shoe Regular Shoe Other Footwear wraps removed at hospital for testing prior to visit Pain Scale: 0-10 Numeric Is Patient Pain Free? Yes Yes Yes 05/04/23 14:35 WC - Today's Visit Information Type of service Follow-up Visit (Physician/CUSTOMER INSIGHT ANALYST ) Arrival Mode Ambulatory Transfer Assistance Transfer Assist (Other) Accompanied by Patient Identification Verified (Name & Yes ) Patient Requires Transmission-Based Precautions Finger Stick Blood Sugar(mg/dl) (if indicated): Blood Sugar Height and Weight Body Mass Index (BMI) 0.0 BMI Classification Underweight Vital Signs Temperature (97.8 F-99.1 F) Temperature Source Pulse Rate (60-100) 65 Pulse Location Apical Respiratory Rate (12-18) 18 Respiratory rate source Observation Oxygen Delivery Method Room Air Blood Pressure (90/60-120/80) 156/71 H Blood Pressure Mean (mm Hg) 99 Source Monitor Position Semi-Fowlers Blood Pressure Location Left Arm History Since Last Visit- (Skip if this is Patient's initial visit) Have you changed medications since your No last visit? Any new allergies or adverse reactions No Had a fall/change in ADL's that may No increase risk of falls Signs or symptoms of abuse and/or No neglect since last visit Have you been in the hospital since your No last visit? Has dressing in place as prescribed Yes Has compression in place as prescribed Yes Has offloadiing in place as prescribed No Experienced any changes in pain level or No management Left Footwear Regular Shoe Right Footwear Regular Shoe Other Footwear Pain Scale: 0-10 Numeric Is Patient Pain Free? Yes WC - Nurse 1 - General Ulcer Measurement Start: 04/08/23 11:36 Freq: Status: Active Protocol: Activity Type Activity Date Activity User E-sign Co-sign Detail Recorded Client Recorded Date Recorded By Document 04/08/23 11:36 KW Desktop 04/08/23 11:41 KW Document 04/13/23 14:17 DL Desktop 04/13/23 14:27 DL Document 04/20/23 14:00 KW Desktop 04/20/23 14:10 KW Document 04/25/23 15:15 DL Desktop 04/25/23 15:28 DL Document 04/27/23 14:51 KW Desktop 04/27/23 15:08 KW Document 05/02/23 14:06 BMF Desktop 05/02/23 14:12 BMF Document 05/04/23 14:35 KW Desktop 05/04/23 14:37 KW 04/08/23 04/13/23 04/20/23 11:36 14:17 14:00 Wound Center Nurse 1 #4- L MED HEEL -Current Size (cm) - Length 2.4 -Current Size (cm) - Width 2.5 -Current Size (cm) - Depth 0.1 -Total Square Cm 6.00 -Epithelialization -Tunneling -Undermining/Tunneling -Circular Undermining -Exudate Amt Small Medium -Exudate Type Serosanguineous Serosanguineous -Wound Margin Distinct, Distinct, Outline Outline Attached Attached -Granulation Amt Medium (34-66%) Medium (34-66%) -Granulation Quality [place] -Slough/Fibrin -Necrosis Amt Medium (34-66%) Medium (34-66%) -Necrotic Tissue Type Adherent Slough Adherent Slough -Texture (Hannah-wound Skin Appearance) Scarring Assessed -Moisture (Hannah-wound Skin Appearance) Dry/Scaly Maceration -Color (Hannah-wound Skin Appearance) Hemosiderin Assessed Staining -Temperature (Hannah-wound Skin No Abnormality No Abnormality Appearance) (Pt Warm) (Pt Warm) -Tenderness on Palpation (Hannah-wound No Skin Appearance) -Ulcer Cleansing Soap and Water Soap and Water -Foul Odor after Cleansing No -Anesthetic Used 5% Lidocaine 5% Lidocaine Gel Gel Lower Limb Edema Present Right Calf (cm) 47 48 46.2 Right Ankle (cm) 32 33 32 Left Calf (cm) 48 46.5 44.6 Left Ankle (cm) 32 31 33 04/25/23 04/27/23 05/02/23 15:15 14:51 14:06 Wound Center Nurse 1 #4- L MED HEEL -Current Size (cm) - Length 4.2 -Current Size (cm) - Width 3 -Current Size (cm) - Depth 0.1 -Total Square Cm 12.6 -Epithelialization Small 1-33% Small 1-33% -Tunneling No -Undermining/Tunneling No -Circular Undermining No -Exudate Amt Medium Large -Exudate Type Serosanguineous Serosanguineous -Wound Margin Distinct, Distinct, Outline Outline Attached Attached -Granulation Amt Large (67-100%) Large (67-100%) -Granulation Quality [place],Red -Slough/Fibrin Yes -Necrosis Amt None Present (0 Small (1-33%) %) -Necrotic Tissue Type Adherent Slough Adherent Slough -Texture (Hannah-wound Skin Appearance) Assessed,Callus Assessed ,Scarring -Moisture (Hannah-wound Skin Appearance) Assessed, Maceration Maceration,Dry/ Scaly -Color (Hannah-wound Skin Appearance) Assessed Assessed -Temperature (Hannah-wound Skin No Abnormality No Abnormality Appearance) (Pt Warm) (Pt Warm) -Tenderness on Palpation (Hannah-wound No Skin Appearance) -Ulcer Cleansing Soap and Water Soap and Water -Foul Odor after Cleansing No -Anesthetic Used 5% Lidocaine Gel Lower Limb Edema Present Yes Right Calf (cm) 48 48.5 47.9 Right Ankle (cm) 31.2 38.2 30.9 Left Calf (cm) 49.5 49 31.6 Left Ankle (cm) 32 38.3 45.3 05/04/23 14:35 Wound Center Nurse 1 #4- L MED HEEL -Current Size (cm) - Length 1 -Current Size (cm) - Width 1.7 -Current Size (cm) - Depth 0.1 -Total Square Cm 1.7 -Epithelialization -Tunneling -Undermining/Tunneling -Circular Undermining -Exudate Amt Small -Exudate Type Serosanguineous -Wound Margin Distinct, Outline Attached -Granulation Amt Large (67-100%) -Granulation Quality Pale,[place] -Slough/Fibrin -Necrosis Amt -Necrotic Tissue Type -Texture (Hannah-wound Skin Appearance) Assessed -Moisture (Hannah-wound Skin Appearance) Assessed -Color (Hannah-wound Skin Appearance) Assessed -Temperature (Hannah-wound Skin No Abnormality Appearance) (Pt Warm) -Tenderness on Palpation (Hannah-wound Skin Appearance) -Ulcer Cleansing Soap and Water -Foul Odor after Cleansing No -Anesthetic Used 5% Lidocaine Gel Lower Limb Edema Present Right Calf (cm) 46.6 Right Ankle (cm) 30.5 Left Calf (cm) 46 Left Ankle (cm) 31.3 - Nurse 2 - General Ulcer CM Notes Start: 04/08/23 11:36 Freq: Status: Active Protocol: Activity Type Activity Date Activity User E-sign Co-sign Detail Recorded Client Recorded Date Recorded By Document 04/13/23 14:43 Laptop 04/13/23 14:48 Document 04/20/23 14:15 Laptop 04/20/23 14:20 Document 04/27/23 15:18 Laptop 04/27/23 15:23 Document 05/04/23 14:53 Laptop 05/04/23 14:56 04/13/23 04/20/23 04/27/23 14:43 14:15 15:18 Wound Center Nurse 2 #4- L MED HEEL -Time 14:43 14:15 15:18 -Correct Patient Yes Yes Yes -Correct Side, Site, Position Yes Yes Yes -Correct Procedure Yes Yes Yes -Procedure Performed Yes Yes Yes -Type of Procedure Debridement Debridement Debridement -Clinical Debridement Subcutaneous Subcutaneous Subcutaneous -Tissue Removed Subcutaneous Subcutaneous Subcutaneous -Post Debridement (cm) - Length 2.3 2.3 2.6 -Post Debridement (cm) - Width 1.8 2.5 3.6 -Post Debridement (cm) - Depth 0.1 0.1 0.1 -Total Square (Post) (cm) 4.14 5.75 9.36 -Area of Debridement (cm) - Length 2.3 2.3 2.6 -Area of Debridement (cm) - Width 1.8 2.5 3.6 -Total Square (Area) (cm) 4.14 5.75 9.36 -Tunneling No No No -Undermining/Tunneling No No No -Circular Undermining No No No -Wound/Ulcer Outcome Not Healed Not Healed Not Healed -Ulcer Cleansing Rinsed/ Rinsed/ Rinsed/ Irrigated with Irrigated with Irrigated with Saline Saline Saline -Foul Odor after Cleansing No No No -Bioengineered Tissue No No No -Bleeding Controlled with Pressure Pressure Pressure -Treatment Response Procedure Procedure Procedure Tolerated Well Tolerated Well Tolerated Well -Offloading No No No -Debridement - Subq, 1st 20sq cm Yes Yes Yes Pain Scale: 0-10 Numeric Is Patient Pain Free? Yes Yes Yes 05/04/23 14:53 Wound Center Nurse 2 #4- L MED HEEL -Time 14:53 -Correct Patient Yes -Correct Side, Site, Position Yes -Correct Procedure Yes -Procedure Performed Yes -Type of Procedure Debridement -Clinical Debridement Subcutaneous -Tissue Removed Subcutaneous -Post Debridement (cm) - Length 1.9 -Post Debridement (cm) - Width 1.8 -Post Debridement (cm) - Depth 0.1 -Total Square (Post) (cm) 3.42 -Area of Debridement (cm) - Length 1.9 -Area of Debridement (cm) - Width 1.8 -Total Square (Area) (cm) 3.42 -Tunneling No -Undermining/Tunneling No -Circular Undermining No -Wound/Ulcer Outcome Not Healed -Ulcer Cleansing Rinsed/ Irrigated with Saline -Foul Odor after Cleansing No -Bioengineered Tissue No -Bleeding Controlled with Pressure -Treatment Response Procedure Tolerated Well -Offloading No -Debridement - Subq, 1st 20sq cm Yes Pain Scale: 0-10 Numeric Is Patient Pain Free? Yes - Nurse 3 - General Ulcer D/C NN Start: 04/08/23 11:36 Freq: Status: Active Protocol: Activity Type Activity Date Activity User E-sign Co-sign Detail Recorded Client Recorded Date Recorded By Document 04/08/23 11:36 KW Desktop 04/08/23 11:41 KW Document 04/13/23 14:51 KW Desktop 04/13/23 14:54 KW Document 04/20/23 14:37 KW Desktop 04/20/23 14:38 KW Document 04/25/23 15:15 DL Desktop 04/25/23 15:28 DL Document 04/27/23 15:48 GM Desktop 04/27/23 15:50 GM Document 05/02/23 14:06 BMF Desktop 05/02/23 14:12 BMF 04/08/23 04/13/23 04/20/23 11:36 14:51 14:37 Vital Signs Temperature (97.8 F-99.1 F) 97.9 F Temperature Source Temporal Pulse Rate (60-100) 68 Pulse Location Monitor Respiratory Rate (12-18) 18 Respiratory rate source Observation Oxygen Delivery Method Room Air Blood Pressure (90/60-120/80) 154/68 H Blood Pressure Mean (mm Hg) 96 Source Monitor Position Semi-Fowlers Blood Pressure Location Left Arm Pain Scale: 0-10 Numeric Is Patient Pain Free? Yes Yes Yes Wound Care Center Nurse 3 #4- L MED HEEL -Ulcer Cleansing -Foul Odor after Cleansing -Primary Dressing Applied Optilok 8x12 Optilok 6.5x10 Optilok 6.5x10 -Other Dressing -Primary Dressing Covered/Secured with Dry Gauze & Dry Gauze & Dry Gauze & Roll Gauze, Roll Gauze, Roll Gauze, Secured with Secured with Secured with Tape Tape Tape -Other Covering -Aquacel AG 2x2 -Aquacel AG 4x4 -Optilok 6.5x10 1 1 -Optilok 8x12 1 BLE -Lotion applied to leg before compression wrap -Multi-Layered Wrap Application Multi-Layer Multi-Layer Multi-Layer Comp - Bilat ($ Comp - Bilat ($ Comp - Bilat ($ ) ) ) Treatment Response WC - Visit Discharge Discharge Condition Stable Stable Ambulatory Status Ambulatory, Walker Walker Transportation Private Auto Private Auto Accompanied by Medication Reconcilliation completed & No No provided to patient/care provider Clinical Summary of Care Provided Yes Yes 04/25/23 04/27/23 05/02/23 15:15 15:48 14:06 Vital Signs Temperature (97.8 F-99.1 F) 99.2 F H 97.6 F L Temperature Source Temporal Temporal Pulse Rate (60-100) 78 57 L Pulse Location Monitor Monitor Respiratory Rate (12-18) 16 18 Respiratory rate source Observation Observation Oxygen Delivery Method Room Air Room Air Blood Pressure (90/60-120/80) 143/70 H 135/57 H Blood Pressure Mean (mm Hg) 94 83 Source Monitor Monitor Position Sitting Semi-Fowlers Blood Pressure Location Left Arm Left Arm Pain Scale: 0-10 Numeric Is Patient Pain Free? Yes Yes Yes Wound Care Center Nurse 3 #4- L MED HEEL -Ulcer Cleansing Not Cleansed Soap and Water -Foul Odor after Cleansing No -Primary Dressing Applied Aquacel AG 2x2 Aquacel AG 4x4 -Other Dressing betadine soaked gauze; -Primary Dressing Covered/Secured with Dry Gauze & Dry Gauze & Dry Gauze & Roll Gauze, Roll Gauze, Roll Gauze, Secured with Secured with Secured with Tape Tape Tape -Other Covering heel hat w/ fluffed gauzse -Aquacel AG 2x2 1 -Aquacel AG 4x4 1 -Optilok 6.5x10 -Optilok 8x12 BLE -Lotion applied to leg before Yes Yes compression wrap -Multi-Layered Wrap Application Multi-Layer Multi-Layer Multi-Layer Comp - Bilat ($ Comp - Bilat ($ Comp - Bilat ($ ) ) ) Treatment Response Procedure Tolerated Well WC - Visit Discharge Discharge Condition Stable Stable Stable Ambulatory Status Wheelchair Ambulatory, Ambulatory, Walker Walker Transportation Private Auto Private Auto Private Auto Accompanied by Medication Reconcilliation completed & Yes No provided to patient/care provider Clinical Summary of Care Provided Yes Yes Assessment/Plan Assessment/Plan (1) Non-pressure chronic ulcer of other part of left foot with fat layer exposed: CODE(S): L97.522 - Non-pressure chronic ulcer of other part of left foot with fat layer exposed PLAN: Patient was examined and evaluated. All findings were discussed with the patient. All questions were answered to the patient's satisfaction. Excisional debridement down to including subcutaneous tissue with a number 5 mm dermal curette to the left heel full-thickness ulceration without incident. Predebridement measurement is 1.7 x 1.6 x 0.1 cm. Postdebridement measurement is 1.9 x 1.8 x 0.1 cm. cm. Left lower extremities were cleaned and patted dry. Full-thickness ulceration was dressed with Aquacel Ag, dry sterile dressing and bilateral 3M wraps were donned to the lower extremities. Patient was educated to rest and elevate his feet whenever possible. He was understanding of this. Will begin authorization for mechanical pump secondary to patient failing conservative treatment consisting of multilayer compression bandage wraps to bilateral lower extremity. The patient presents with stage II lymphedema. We do recommend elevation, exercise and class I compression stockings however the patient has failed these and will benefit from mechanical pumps to help decrease the size and thickness of his bilateral lower extremity. Follow-up at the wound care center with Dr. Spann in 1 week. (2) Peripheral vascular disease: CODE(S): I73.9 - Peripheral vascular disease, unspecified (3) Acute painful diabetic polyneuropathy: CODE(S): E11.42 - Type 2 diabetes mellitus with diabetic polyneuropathy (4) Lymphedema, not elsewhere classified: CODE(S): I89.0 - Lymphedema, not elsewhere classified
== END 2023-05-05 23:59 | disposition home or self-care (01) ==
LOC: WC 14:30
PROVIDERS: PCP Internal Medicine; Referring Provider Internal Medicine; Visit Provider Podiatrist Foot & Ankle Surgery
DX: E11.621 Type 2 diabetes mellitus with foot ulcer (principal); L97.422 Non-pressure chronic ulcer of left heel and midfoot with fat layer exposed; I48.91 Unspecified atrial fibrillation; E11.42 Type 2 diabetes mellitus with diabetic polyneuropathy; Z79.4 Long term (current) use of insulin; E11.51 Type 2 diabetes mellitus with diabetic peripheral angiopathy without gangrene; I89.0 Lymphedema, not elsewhere classified; I87.2 Venous insufficiency (chronic) (peripheral); I10 Essential (primary) hypertension; E78.5 Hyperlipidemia, unspecified; R60.0 Localized edema; G47.00 Insomnia, unspecified; H54.8 Legal blindness, as defined in USA; Z79.01 Long term (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 of anticoagulants; Z79.899 Other long term (current) drug therapy
CPT/HCPCS: 11042; 29581; 93923; 93970; 99211; 99212; G0463

== ENCOUNTER 2023-06-01 14:15 | Outpatient (RCR) | payer MEDICARE, OTHER, SELFPAY ==
[2023-05-06 00:19] VITALS: BP 156/71; PULSE 65; RESP 18; TEMP 36.4
[2023-05-09 14:00] VITALS: BP 141/49; PULSE 60; TEMP 36.2
[2023-05-11 09:26] VITALS: BP 165/79; PULSE 75; RESP 18
--- NOTE | 2023-05-11 10:42 | PN.PCM_ITS ---
History of Present Illness Date of Service: 05/11/23 Chief Complaint: Right foot ulcer History of Wound: This 76-year-old male with significant PMHx of diabetes type II with peripheral polyneuropathy, atrial fibrillation, hyperlipidemia, HTN, blindness, insomnia, history of acute renal failure, retinitis pigmentosa, Kaposi sarcoma right foot, and history of venous insufficiency with multiple procedural interventions was seen for right and left foot ulcer. Last seen by Dr. Moore, vascular specialist in 2020. Patient has not gone back for continued evaluation. Does have confirmed venous insufficiency of the great saphenous vein bilateral with bilateral lower extremity edema and lymphedema. He denies N/V/F/chills. He denies redness or odor to the foot bilateral. He is with his today. states that he had been following with Dr. Natalia Hernandez, [place] in office following dispense of Sigvaris compression wrap and bilateral AFO braces made by [employer]. states that these braces have caused rubbing on the inside of the heel of both feet that had formed a blister and eventually broke open into a wound. States that they have not healed in the last month and Dr. Hernandez referred them to the wound care center for further evaluation. Subjective Subjective Mr. Renae is a 77-year-old diabetic male who is presenting to the wound care center today for follow-up and evaluation of bilateral heel wounds. Patient is legally blind. His wound care at home is provided by his . Patient has history of chronic wound to the medial heels secondary to pressure. The admits that the left heel is odorous and has a greenish tent. She admits that the right heel has evidence of a blister. Patient is a uncontrolled diabetic. He denies trauma. Denies constitutional symptoms. No other pedal complaints at this time. Objective Data Objective Data Vital Signs: Vital Signs Temp Pulse Resp BP O2 Del Method 97.2 F L 75 18 165/79 H Room Air 05/09/23 14:00 05/11/23 09:26 05/11/23 09:26 05/11/23 09:26 05/11/23 09:26 Oxygen Delivery Method Room Air Weight: 2.722 kg Body Mass Index (BMI) 0.0 Physical Exam Narrative Vascular: DP and PT pulses are palpable. CFT is brisk. +1 pitting edema appreciated to bilateral lower extremity. Evidence of blanchable erythema appreciated to the bilateral heels. Neurological: Light touch intact. Protective sensation is absent. Patient does not respond to painful stimuli. Dermatological: Full-thickness ulceration left medial heel ulceration measures 2.3 x 1.5 x 0.1 cm. Wound base to the right heel is under granular nature. The right heel shows no evidence of infection. Excisional debridement down to including subcutaneous tissue with a number 5 mm dermal curette to the left heel full-thickness ulceration without incident. Predebridement measurement is 2.0 x 1.4 x 0.1 cm. Postdebridement measurement is 2.3 x 1.5 x 0.1 cm. Musculoskeletal: No pain on palpation to the full-thickness ulceration. No pain with calf compression. Debridement Note Debridement Note Debridement Free Text: Excisional debridement down to including subcutaneous ti ssue with a number 5 mm dermal curette to the left heel full-thickness ulceration without incident. Predebridement measurement is 2.0 x 1.4 x 0.1 cm. Postdebridement measurement is 2.3 x 1.5 x 0.1 cm. Post-Debridement Measurements and Additional Note: Post-Debridement Measurements/Treatment - Nurse 1 - General Ulcer Assessment Start: 05/09/23 14:00 Freq: Status: Active Protocol: [email or web address] Activity Type Activity Date Activity User E-sign Co-sign Detail Recorded Client Recorded Date Recorded By Document 05/09/23 14:00 DL Desktop 05/09/23 14:03 DL Document 05/11/23 09:26 KW Desktop 05/11/23 09:39 KW 05/09/23 05/11/23 14:00 09:26 - Today's Visit Information Type of service Nurse-only Follow-up Visit Visit (Physician/ENTRY LEVEL PROGRAMMER ) Arrival Mode Ambulatory, Ambulatory, Walker Walker Transfer Assistance None Accompanied by Patient Identification Verified (Name & Yes Yes ) Patient Requires Transmission-Based No Precautions Height and Weight Body Mass Index (BMI) 0.0 0.0 BMI Classification Underweight Underweight Vital Signs Temperature (97.8 F-99.1 F) 97.2 F L Temperature Source Temporal Pulse Rate (60-100) 60 75 Pulse Location Monitor Monitor Respiratory Rate (12-18) 18 Respiratory rate source Observation Observation Oxygen Delivery Method Room Air Blood Pressure (90/60-120/80) 141/49 H 165/79 H Blood Pressure Mean (mm Hg) 79 107 Source Monitor Monitor Position Semi-Fowlers Blood Pressure Location Left Arm History Since Last Visit- (Skip if this is Patient's initial visit) Have you changed medications since your No No last visit? Any new allergies or adverse reactions No No Had a fall/change in ADL's that may No No increase risk of falls Signs or symptoms of abuse and/or No No neglect since last visit Have you been in the hospital since your No No last visit? Has dressing in place as prescribed Yes Yes Has compression in place as prescribed Yes Yes Has offloadiing in place as prescribed Yes N/A Experienced any changes in pain level or No No management Left Footwear Regular Shoe Right Footwear Regular Shoe Pain Scale: 0-10 Numeric Is Patient Pain Free? Yes Yes WC - Nurse 1 - General Ulcer Measurement Start: 05/09/23 14:00 Freq: Status: Active Protocol: Activity Type Activity Date Activity User E-sign Co-sign Detail Recorded Client Recorded Date Recorded By Document 05/09/23 14:00 DL Desktop 05/09/23 14:03 DL Document 05/11/23 09:26 KW Desktop 05/11/23 09:39 KW 05/09/23 05/11/23 14:00 09:26 Wound Center Nurse 1 #4- L MED HEEL -Current Size (cm) - Length 2 -Current Size (cm) - Width 1.8 -Current Size (cm) - Depth 0.1 -Total Square Cm 3.6 -Exudate Amt Medium Small -Exudate Type Serosanguineous Serosanguineous -Wound Margin Distinct, Distinct, Outline Outline Attached Attached -Granulation Amt Small (1-33%) Medium (34-66%) -Granulation Quality Red [place] -Necrosis Amt Large (67-100%) Small (1-33%) -Necrotic Tissue Type Adherent Slough Adherent Slough -Structure Exposed None/Limited to Skin Breakdown -Texture (Hannah-wound Skin Appearance) Callus,Scarring Assessed,Callus -Moisture (Hannah-wound Skin Appearance) No Abnormality Assessed, Maceration -Color (Hannah-wound Skin Appearance) No Abnormality Assessed -Temperature (Hannah-wound Skin No Abnormality No Abnormality Appearance) (Pt Warm) (Pt Warm) -Tenderness on Palpation (Hannah-wound No Skin Appearance) -Ulcer Cleansing Not Cleansed Soap and Water -Foul Odor after Cleansing No -Anesthetic Used 5% Lidocaine Gel Right Calf (cm) 48.5 46 Right Ankle (cm) 31.5 31.5 Left Calf (cm) 48 47 Left Ankle (cm) 31.5 32.5 WC - Nurse 2 - General Ulcer CM Notes Start: 05/09/23 14:00 Freq: Status: Active Protocol: Activity Type Activity Date Activity User E-sign Co-sign Detail Recorded Client Recorded Date Recorded By Document 05/11/23 09:49 JF Desktop 05/11/23 09:56 JF 05/11/23 09:49 Wound Center Nurse 2 #4- L MED HEEL -Time 09:49 -Correct Patient Yes -Correct Side, Site, Position Yes -Correct Procedure Yes -Procedure Performed Yes -Type of Procedure Debridement -Clinical Debridement Subcutaneous -Tissue Removed Subcutaneous -Post Debridement (cm) - Length 2.3 -Post Debridement (cm) - Width 1.5 -Post Debridement (cm) - Depth 0.1 -Total Square (Post) (cm) 3.45 -Area of Debridement (cm) - Length 2.3 -Area of Debridement (cm) - Width 1.5 -Total Square (Area) (cm) 3.45 -Tunneling No -Undermining/Tunneling No -Circular Undermining No -Wound/Ulcer Outcome Not Healed -Ulcer Cleansing Rinsed/ Irrigated with Saline -Foul Odor after Cleansing No -Bioengineered Tissue No -Bleeding Controlled with Pressure,Silver Nitrate -Treatment Response Procedure Tolerated Well -Offloading No -Debridement - Subq, 1st 20sq cm Yes Pain Scale: 0-10 Numeric Is Patient Pain Free? Yes WC - Nurse 3 - General Ulcer D/C NN Start: 05/09/23 14:00 Freq: Status: Active Protocol: Activity Type Activity Date Activity User E-sign Co-sign Detail Recorded Client Recorded Date Recorded By Document 05/09/23 14:00 DL Desktop 05/09/23 14:03 DL Document 05/11/23 10:20 DL Desktop 05/11/23 10:22 DL 05/09/23 05/11/23 14:00 10:20 Vital Signs Temperature (97.8 F-99.1 F) 97.2 F L Temperature Source Temporal Pulse Rate (60-100) 60 Pulse Location Monitor Respiratory rate source Observation Blood Pressure (90/60-120/80) 141/49 H Blood Pressure Mean (mm Hg) 79 Source Monitor Pain Scale: 0-10 Numeric Is Patient Pain Free? Yes Yes Wound Care Center Nurse 3 #4- L MED HEEL -Ulcer Cleansing Soap and Water Soap and Water -Foul Odor after Cleansing No No -Primary Dressing Applied Aquacel AG 4x4 Promogran Catherine Matter -Primary Dressing Covered/Secured with Dry Gauze & Dry Gauze & Roll Gauze, Roll Gauze, Secured with Secured with Tape Tape -Other Covering Padding to heels -Aquacel AG 4x4 1 -Promogran Catherine Matter 1 alvaro -Multi-Layered Wrap Application Multi-Layer Multi-Layer Comp - Bilat ($ Comp - Bilat ($ ) ) Treatment Response Procedure Procedure Tolerated Well Tolerated Well WC - Visit Discharge Discharge Condition Stable Stable Ambulatory Status Ambulatory Ambulatory, Walker Transportation Private Auto Private Auto Accompanied by Facility Type Home Health Orders Sent Yes Assessment/Plan Assessment/Plan (1) Non-pressure chronic ulcer of other part of left foot with fat layer exposed: CODE(S): L97.522 - Non-pressure chronic ulcer of other part of left foot with fat layer exposed PLAN: Patient was examined and evaluated. All findings were discussed with the patient. All questions were answered to the patient's satisfaction. Excisional debridement down to including subcutaneous tissue with a number 5 mm dermal curette to the left heel full-thickness ulceration without incident. Predebridement measurement is 2.0 x 1.4 x 0.1 cm. Postdebridement measurement is 2.3 x 1.5 x 0.1 cm. Left lower extremities were cleaned and patted dry. The ulceration to left heel was dressed with Catherine followed by 3M wraps to the bilateral lower extremity. Educated patient on the use of his braces and we will hold off at this time. The patient will follow-up with the office to waste picker a heel lift for the left foot. Continue to educate the patient on strict blood sugar control. Follow-up at the wound care center with Dr. Spann in 1 week. (2) Lymphedema, not elsewhere classified: CODE(S): I89.0 - Lymphedema, not elsewhere classified (3) Peripheral vascular disease: CODE(S): I73.9 - Peripheral vascular disease, unspecified
[2023-05-16 13:39] VITALS: BP 156/66; PULSE 60; RESP 16; TEMP 36.6
[2023-05-18 14:30] VITALS: BP 138/96; PULSE 66; RESP 20; TEMP 36.4
--- NOTE | 2023-05-18 14:46 | PCM.WC.PN ---
History of Present Illness Date of Service: 05/18/23 Chief Complaint: Right foot ulcer History of Wound: This 76-year-old male with significant PMHx of diabetes type II with peripheral polyneuropathy, atrial fibrillation, hyperlipidemia, HTN, blindness, insomnia, history of acute renal failure, retinitis pigmentosa, Kaposi sarcoma right foot, and history of venous insufficiency with multiple procedural interventions was seen for right and left foot ulcer. Last seen by Dr. Moore, vascular specialist in 2020. Patient has not gone back for continued evaluation. Does have confirmed venous insufficiency of the great saphenous vein bilateral with bilateral lower extremity edema and lymphedema. He denies N/V/F/chills. He denies redness or odor to the foot bilateral. He is with his today. states that he had been following with Dr. Natalia Hernandez, [place].P.Aura in office following dispense of Sigvaris compression wrap and bilateral AFO braces made by [facility]. states that these braces have caused rubbing on the inside of the heel of both feet that had formed a blister and eventually broke open into a wound. States that they have not healed in the last month and Dr. Hernandez referred them to the wound care center for further evaluation. Subjective Subjective Mr. Renae is a 77-year-old diabetic male who is presenting to the wound care center today for follow-up and evaluation of bilateral heel wounds. Patient is legally blind. His wound care at home is provided by his . Patient has history of chronic wound to the medial heels secondary to pressure. The admits that the left heel is odorous and has a greenish tent. She admits that the right heel has evidence of a blister. Patient is a uncontrolled diabetic. He denies trauma. Denies constitutional symptoms. No other pedal complaints at this time. Objective Data Objective Data Vital Signs: Vital Signs Temp Pulse Resp BP O2 Del Method 97.6 F L 66 20 H 138/96 H Room Air 05/18/23 14:30 05/18/23 14:30 05/18/23 14:30 05/18/23 14:30 05/18/23 14:30 Oxygen Delivery Method Room Air Weight: 2.722 kg Body Mass Index (BMI) 0.0 Physical Exam Narrative Vascular: DP and PT pulses are palpable. CFT is brisk. +1 pitting edema appreciated to bilateral lower extremity. Evidence of blanchable erythema appreciated to the bilateral heels. Neurological: Light touch intact. Protective sensation is absent. Patient does not respond to painful stimuli. Dermatological: Full-thickness ulceration left medial heel ulceration measures 0.8 x 1.5 x 0.1 cm. Wound base to the right heel is under granular nature. The right heel shows no evidence of infection. Excisional debridement down to including subcutaneous tissue with a number 5 mm dermal curette to the left heel full-thickness ulceration without incident. Predebridement measurement is 0.5 x 1.2 x 0.1 cm. Postdebridement measurement is 0.8 x 1.5 x 0.1 cm. Musculoskeletal: No pain on palpation to the full-thickness ulceration. No pain with calf compression. Debridement Note Debridement Note Debridement Free Text: Excisional debridement down to including subcutaneous tissue with a number 5 mm dermal curette to the left heel full-thickness ulceration without incident. Predebridement measurement is 0.5 x 1.2 x 0.1 cm. Postdebridement measurement is 0.8 x 1.5 x 0.1 cm. Post-Debridement Measurements and Additional Note: Post-Debridement Measurements/Treatment - Nurse 1 - General Ulcer Assessment Start: 05/09/23 14:00 Freq: Status: Active Protocol: JORGE Activity Type Activity Date Activity User E-sign Co-sign Detail Recorded Client Recorded Date Recorded By Document 05/09/23 14:00 DL Desktop 05/09/23 14:03 DL Document 05/11/23 09:26 KW Desktop 05/11/23 09:39 KW Document 05/16/23 13:39 [facility] Desktop 05/16/23 13:40 BMF Document 05/18/23 14:30 GM Desktop 05/18/23 14:32 05/09/23 05/11/23 05/16/23 14:00 09:26 13:39 - Today's Visit Information Type of service Nurse-only Follow-up Visit Nurse-only Visit (Physician/PIPE OR STEAM FITTER FURNACE INSTALLER Visit ) Arrival Mode Ambulatory, Ambulatory, Ambulatory, Walker Walker Walker Transfer Assistance None None Accompanied by Patient Identification Verified (Name & Yes Yes Yes ) Patient Requires Transmission-Based No No Precautions Height and Weight Body Mass Index (BMI) 0.0 0.0 0.0 BMI Classification Underweight Underweight Underweight Vital Signs Temperature (97.8 F-99.1 F) 97.2 F L 98 F Temperature Source Temporal Temporal Pulse Rate (60-100) 60 75 60 Pulse Location Monitor Monitor Monitor Respiratory Rate (12-18) 18 16 Respiratory rate source Observation Observation Observation Oxygen Delivery Method Room Air Room Air Blood Pressure (90/60-120/80) 141/49 H 165/79 H 156/66 H Blood Pressure Mean (mm Hg) 79 107 96 Source Monitor Monitor Monitor Position Semi-Fowlers Sitting Blood Pressure Location Left Arm Left Forearm History Since Last Visit- (Skip if this is Patient's initial visit) Have you changed medications since your No No No last visit? Any new allergies or adverse reactions No No No Had a fall/change in ADL's that may No No No increase risk of falls Signs or symptoms of abuse and/or No No No neglect since last visit Have you been in the hospital since your No No No last visit? Has dressing in place as prescribed Yes Yes Yes Has compression in place as prescribed Yes Yes Yes Has offloadiing in place as prescribed Yes N/A N/A Experienced any changes in pain level or No No No management Left Footwear Regular Shoe Regular Shoe Right Footwear Regular Shoe Regular Shoe Pain Scale: 0-10 Numeric Is Patient Pain Free? Yes Yes Yes 05/18/23 14:30 WC - Today's Visit Information Type of service Follow-up Visit (Physician/PIPE OR STEAM FITTER FURNACE INSTALLER ) Arrival Mode Ambulatory, Walker Transfer Assistance None Accompanied by Patient Identification Verified (Name & Yes ) Patient Requires Transmission-Based No Precautions Height and Weight Body Mass Index (BMI) 0.0 BMI Classification Underweight Vital Signs Temperature (97.8 F-99.1 F) 97.6 F L Temperature Source Temporal Pulse Rate (60-100) 66 Pulse Location Monitor Respiratory Rate (12-18) 20 H Respiratory rate source Observation Oxygen Delivery Method Room Air Blood Pressure (90/60-120/80) 138/96 H Blood Pressure Mean (mm Hg) 110 Source Monitor Position Sitting Blood Pressure Location Left Arm History Since Last Visit- (Skip if this is Patient's initial visit) Have you changed medications since your No last visit? Any new allergies or adverse reactions No Had a fall/change in ADL's that may No increase risk of falls Signs or symptoms of abuse and/or No neglect since last visit Have you been in the hospital since your No last visit? Has dressing in place as prescribed Yes Has compression in place as prescribed Yes Has offloadiing in place as prescribed N/A Experienced any changes in pain level or No management Left Footwear Right Footwear Pain Scale: 0-10 Numeric Is Patient Pain Free? Yes WC - Nurse 1 - General Ulcer Measurement Start: 05/09/23 14:00 Freq: Status: Active Protocol: Activity Type Activity Date Activity User E-sign Co-sign Detail Recorded Client Recorded Date Recorded By Document 05/09/23 14:00 DL Desktop 05/09/23 14:03 DL Document 05/11/23 09:26 KW Desktop 05/11/23 09:39 KW Document 05/18/23 14:30 GM Desktop 05/18/23 14:32 GM 05/09/23 05/11/23 05/18/23 14:00 09:26 14:30 Wound Center Nurse 1 #4- L MED HEEL -Current Size (cm) - Length 2 0.1 -Current Size (cm) - Width 1.8 0.1 -Current Size (cm) - Depth 0.1 0.1 -Total Square Cm 3.6 0.01 -Photo Taken No -Epithelialization Small 1-33% -Tunneling No -Undermining/Tunneling No -Circular Undermining No -Exudate Amt Medium Small Medium -Exudate Type Serosanguineous Serosanguineous Yellow/Green -Wound Margin Distinct, Distinct, Distinct, Outline Outline Outline Attached Attached Attached -Granulation Amt Small (1-33%) Medium (34-66%) -Granulation Quality Red [place] -Necrosis Amt Large (67-100%) Small (1-33%) -Necrotic Tissue Type Adherent Slough Adherent Slough -Structure Exposed None/Limited to Skin Breakdown -Texture (Hannah-wound Skin Appearance) Callus,Scarring Assessed,Callus Assessed -Moisture (Hannah-wound Skin Appearance) No Abnormality Assessed, Assessed Maceration -Color (Hannah-wound Skin Appearance) No Abnormality Assessed Assessed -Temperature (Hannah-wound Skin No Abnormality No Abnormality No Abnormality Appearance) (Pt Warm) (Pt Warm) (Pt Warm) -Tenderness on Palpation (Hannah-wound No No Skin Appearance) -Ulcer Cleansing Not Cleansed Soap and Water Soap and Water -Foul Odor after Cleansing No No -Anesthetic Used 5% Lidocaine 5% Lidocaine Gel Gel Lower Limb Edema Present Yes Right Calf (cm) 48.5 46 47.5 Right Ankle (cm) 31.5 31.5 23.3 Left Calf (cm) 48 47 44.0 Left Ankle (cm) 31.5 32.5 32.3 - Nurse 2 - General Ulcer CM Notes Start: 05/09/23 14:00 Freq: Status: Active Protocol: Activity Type Activity Date Activity User E-sign Co-sign Detail Recorded Client Recorded Date Recorded By Document 05/11/23 09:49 Desktop 05/11/23 09:56 Document 05/18/23 14:40 Laptop 05/18/23 14:45 05/11/23 05/18/23 09:49 14:40 Wound Center Nurse 2 #4- L MED HEEL -Time 09:49 14:41 -Correct Patient Yes Yes -Correct Side, Site, Position Yes Yes -Correct Procedure Yes Yes -Procedure Performed Yes Yes -Type of Procedure Debridement Debridement -Clinical Debridement Subcutaneous Subcutaneous -Tissue Removed Subcutaneous Subcutaneous -Post Debridement (cm) - Length 2.3 0.8 -Post Debridement (cm) - Width 1.5 1.5 -Post Debridement (cm) - Depth 0.1 0.1 -Total Square (Post) (cm) 3.45 1.20 -Area of Debridement (cm) - Length 2.3 0.8 -Area of Debridement (cm) - Width 1.5 1.5 -Total Square (Area) (cm) 3.45 1.20 -Tunneling No No -Undermining/Tunneling No No -Circular Undermining No No -Wound/Ulcer Outcome Not Healed Not Healed -Ulcer Cleansing Rinsed/ Rinsed/ Irrigated with Irrigated with Saline Saline -Foul Odor after Cleansing No No -Bioengineered Tissue No No -Bleeding Controlled with Pressure,Silver Pressure Nitrate -Treatment Response Procedure Procedure Tolerated Well Tolerated Well -Offloading No No -Debridement - Subq, 1st 20sq cm Yes Yes Pain Scale: 0-10 Numeric Is Patient Pain Free? Yes Yes [place] - Nurse 3 - General Ulcer D/C NN Start: 05/09/23 14:00 Freq: Status: Active Protocol: Activity Type Activity Date Activity User E-sign Co-sign Detail Recorded Client Recorded Date Recorded By Document 05/09/23 14:00 DL Desktop 05/09/23 14:03 DL Document 05/11/23 10:20 DL Desktop 05/11/23 10:22 DL Document 05/16/23 13:39 BMF Desktop 05/16/23 13:40 BMF 05/09/23 05/11/23 05/16/23 14:00 10:20 13:39 Vital Signs Temperature (97.8 F-99.1 F) 97.2 F L 98 F Temperature Source Temporal Temporal Pulse Rate (60-100) 60 60 Pulse Location Monitor Monitor Respiratory Rate (12-18) 16 Respiratory rate source Observation Observation Oxygen Delivery Method Room Air Blood Pressure (90/60-120/80) 141/49 H 156/66 H Blood Pressure Mean (mm Hg) 79 96 Source Monitor Monitor Position Sitting Blood Pressure Location Left Forearm Pain Scale: 0-10 Numeric Is Patient Pain Free? Yes Yes Yes Wound Care Center Nurse 3 #4- L MED HEEL -Ulcer Cleansing Soap and Water Soap and Water Soap and Water -Foul Odor after Cleansing No No No -Primary Dressing Applied Aquacel AG 4x4 Promogran [place] Matter -Other Dressing suellen -Primary Dressing Covered/Secured with Dry Gauze & Dry Gauze & Dry Gauze & Roll Gauze, Roll Gauze, Roll Gauze, Secured with Secured with Secured with Tape Tape Tape -Other Covering Padding to heel hat w/ heels fluffed gauze -Aquacel AG 4x4 1 -Promogran Su[place] Matter 1 alvaro -Multi-Layered Wrap Application Multi-Layer Multi-Layer Multi-Layer Comp - Bilat ($ Comp - Bilat ($ Comp - Bilat ($ ) ) ) Treatment Response Procedure Procedure Procedure Tolerated Well Tolerated Well Tolerated Well WC - Visit Discharge Discharge Condition Stable Stable Stable Ambulatory Status Ambulatory Ambulatory, Ambulatory, Walker Walker Transportation Private Auto Private Auto Private Auto Accompanied by Facility Type Home Health Orders Sent Yes Assessment/Plan Assessment/Plan (1) Lymphedema, not elsewhere classified: CODE(S): I89.0 - Lymphedema, not elsewhere classified PLAN: Patient was examined and evaluated. All findings were discussed with the patient. All questions were answered to the patient's satisfaction. Excisional debridement down to including subcutaneous tissue with a number 5 mm dermal curette to the left heel full-thickness ulceration without incident. Predebridement measurement is 0.5 x 1.2 x 0.1 cm. Postdebridement measurement is 0.8 x 1.5 x 0.1 cm. Left lower extremities were cleaned and patted dry. Suellen was applied to the full-thickness ulceration followed by bilateral 3M wraps. Patient was instructed to keep them clean dry and intact. He is to continue to monitor his blood sugar. He is to ambulate in his white tennis shoes which are not rubbing against the insides of his heels which she was understanding of. Follow-up at the wound care center with Dr. Spann in 1 week. (2) Peripheral vascular disease: CODE(S): I73.9 - Peripheral vascular disease, unspecified (3) Non-pressure chronic ulcer of other part of left foot with fat layer exposed: CODE(S): L97.522 - Non-pressure chronic ulcer of other part of left foot with fat layer exposed
[2023-05-23 13:28] VITALS: BP 162/91; PULSE 70; RESP 18; TEMP 36.1
[2023-05-25 13:59] VITALS: BP 143/69; PULSE 53; RESP 22; TEMP 36.8
--- NOTE | 2023-05-25 20:38 | PN.PCM_ITS ---
History of Present Illness Date of Service: 05/25/23 Chief Complaint: Right foot ulcer History of Wound: This 76-year-old male with significant PMHx of diabetes type II with peripheral polyneuropathy, atrial fibrillation, hyperlipidemia, HTN, blindness, insomnia, history of acute renal failure, retinitis pigmentosa, Kaposi sarcoma right foot, and history of venous insufficiency with multiple procedural interventions was seen for right and left foot ulcer. Last seen by Dr. Moore, vascular specialist in 2020. Patient has not gone back for continued evaluation. Does have confirmed venous insufficiency of the great saphenous vein bilateral with bilateral lower extremity edema and lymphedema. He denies N/V/F/chills. He denies redness or odor to the foot bilateral. He is with his today. states that he had been following with Dr. Natalia Hernandez, [facility].P.Aura in office following dispense of Sigvaris compression wrap and bilateral AFO braces made by [employer]. states that these braces have caused rubbing on the inside of the heel of both feet that had formed a blister and eventually broke open into a wound. States that they have not healed in the last month and Dr. Hernandez referred them to the wound care center for further evaluation. Subjective Subjective Mr. Renae is a 77-year-old diabetic male who is presenting to the wound care center today for follow-up and evaluation of bilateral heel wounds. Patient is legally blind. His wound care at home is provided by his . Patient has history of chronic wound to the medial heels secondary to pressure. The admits that the left heel is odorous and has a greenish tent. She admits that the right heel has evidence of a blister. Patient is a uncontrolled diabetic. He denies trauma. Denies constitutional symptoms. No other pedal complaints at this time. Objective Data Objective Data Vital Signs: Vital Signs Temp Pulse Resp BP O2 Del Method 98.3 F 53 L 22 H 143/69 H Room Air 05/25/23 13:59 05/25/23 13:59 05/25/23 13:59 05/25/23 13:59 05/23/23 13:28 Oxygen Delivery Method Room Air Weight: 2.722 kg Body Mass Index (BMI) 0.0 Physical Exam Narrative Vascular: DP and PT pulses are palpable. CFT is brisk. +1 pitting edema appreciated to bilateral lower extremity. Evidence of blanchable erythema appreciated to the bilateral heels. Neurological: Light touch intact. Protective sensation is absent. Patient does not respond to painful stimuli. Dermatological: Full-thickness ulceration left medial heel ulceration measures 1.0 x 2.2 x 0.1 cm. Wound base to the right heel is under granular nature. The right heel shows no evidence of infection. Excisional debridement down to including subcutaneous tissue with a number 5 mm dermal curette to the left heel full-thickness ulceration without incident. Predebridement measurement is 0.5 x 0.6 x 0.1 cm. Postdebridement measurement is 1.0 x 2.2 x 0.1 cm. Musculoskeletal: No pain on palpation to the full-thickness ulceration. No pain with calf compression. Debridement Note Debridement Note Debridement Free Text: Excisional debridement down to including subcutaneous tissue with a number 5 mm dermal curette to the left heel full-thickness ulceration without incident. Predebridement measurement is 0.5 x 0.6 x 0.1 cm. Postdebridement measurement is 1.0 x 2.2 x 0.1 cm. Post-Debridement Measurements and Additional Note: Post-Debridement Measurements/Treatment - Nurse 1 - General Ulcer Assessment Start: 05/09/23 14:00 Freq: Status: Active Protocol: JORGE Activity Type Activity Date Activity User E-sign Co-sign Detail Recorded Client Recorded Date Recorded By Document 05/09/23 14:00 DL Desktop 05/09/23 14:03 DL Document 05/11/23 09:26 Desktop 05/11/23 09:39 KW Document 05/16/23 13:39 [facility] Desktop 05/16/23 13:40 [facility] Document 05/18/23 14:30 Desktop 05/18/23 14:32 Document 05/23/23 13:28 KW Desktop 05/23/23 13:29 KW Document 05/25/23 13:59 DL Desktop 05/25/23 14:11 DL 05/09/23 05/11/23 05/16/23 14:00 09:26 13:39 - Today's Visit Information Type of service Nurse-only Follow-up Visit Nurse-only Visit (Physician/[employer]ENN[employer] INSTRUCTOR Visit ) Arrival Mode Ambulatory, Ambulatory, Ambulatory, Walker Walker Walker Transfer Assistance None None Accompanied by Patient Identification Verified (Name & Yes Yes Yes ) Patient Requires Transmission-Based No No Precautions Finger Stick Blood Sugar(mg/dl) (if indicated): Height and Weight Body Mass Index (BMI) 0.0 0.0 0.0 BMI Classification Underweight Underweight Underweight Vital Signs Temperature (97.8 F-99.1 F) 97.2 F L 98 F Temperature Source Temporal Temporal Pulse Rate (60-100) 60 75 60 Pulse Location Monitor Monitor Monitor Respiratory Rate (12-18) 18 16 Respiratory rate source Observation Observation Observation Oxygen Delivery Method Room Air Room Air Blood Pressure (90/60-120/80) 141/49 H 165/79 H 156/66 H Blood Pressure Mean (mm Hg) 79 107 96 Source Monitor Monitor Monitor Position Semi-Fowlers Sitting Blood Pressure Location Left Arm Left Forearm History Since Last Visit- (Skip if this is Patient's initial visit) Have you changed medications since your No No No last visit? Any new allergies or adverse reactions No No No Had a fall/change in ADL's that may No No No increase risk of falls Signs or symptoms of abuse and/or No No No neglect since last visit Have you been in the hospital since your No No No last visit? Has dressing in place as prescribed Yes Yes Yes Has compression in place as prescribed Yes Yes Yes Has offloadiing in place as prescribed Yes N/A N/A Experienced any changes in pain level or No No No management Left Footwear Regular Shoe Regular Shoe Right Footwear Regular Shoe Regular Shoe Pain Scale: 0-10 Numeric Is Patient Pain Free? Yes Yes Yes 05/18/23 05/23/23 05/25/23 14:30 13:28 13:59 - Today's Visit Information Type of service Follow-up Visit Nurse-only Follow-up Visit (Physician/TENN[employer] C[employer] INSTRUCTOR Visit (Physician/TENNIS CAMP INSTRUCTOR ) ) Arrival Mode Ambulatory, Ambulatory, Ambulatory, Walker Walker Walker Transfer Assistance None None Accompanied by Patient Identification Verified (Name & Yes Yes Yes ) Patient Requires Transmission-Based No No Precautions Finger Stick Blood Sugar(mg/dl) (if 127 indicated): Height and Weight Body Mass Index (BMI) 0.0 0.0 0.0 BMI Classification Underweight Underweight Underweight Vital Signs Temperature (97.8 F-99.1 F) 97.6 F L 96.9 F L 98.3 F Temperature Source Temporal Temporal Temporal Pulse Rate (60-100) 66 70 53 L Pulse Location Monitor Monitor Monitor Respiratory Rate (12-18) 20 H 18 22 H Respiratory rate source Observation Observation Observation Oxygen Delivery Method Room Air Room Air Blood Pressure (90/60-120/80) 138/96 H 162/91 H 143/69 H Blood Pressure Mean (mm Hg) 110 114 93 Source Monitor Monitor Monitor Position Sitting Semi-Fowlers Blood Pressure Location Left Arm Left Arm History Since Last Visit- (Skip if this is Patient's initial visit) Have you changed medications since your No No No last visit? Any new allergies or adverse reactions No No No Had a fall/change in ADL's that may No No No increase risk of falls Signs or symptoms of abuse and/or No No No neglect since last visit Have you been in the hospital since your No No No last visit? Has dressing in place as prescribed Yes Yes Yes Has compression in place as prescribed Yes Yes Yes Has offloadiing in place as prescribed N/A N/A N/A Experienced any changes in pain level or No No No management Left Footwear Regular Shoe Regular Shoe Right Footwear Regular Shoe Regular Shoe Pain Scale: 0-10 Numeric Is Patient Pain Free? Yes Yes Yes WC - Nurse 1 - General Ulcer Measurement Start: 05/09/23 14:00 Freq: Status: Active Protocol: Activity Type Activity Date Activity User E-sign Co-sign Detail Recorded Client Recorded Date Recorded By Document 05/09/23 14:00 DL Desktop 05/09/23 14:03 DL Document 05/11/23 09:26 KW Desktop 05/11/23 09:39 KW Document 05/18/23 14:30 Desktop 05/18/23 14:32 GM Document 05/23/23 13:28 KW Desktop 05/23/23 13:29 KW Document 05/25/23 13:59 DL Desktop 05/25/23 14:11 DL 05/09/23 05/11/23 05/18/23 14:00 09:26 14:30 Wound Center Nurse 1 #4- L MED HEEL -Current Size (cm) - Length 2 0.1 -Current Size (cm) - Width 1.8 0.1 -Current Size (cm) - Depth 0.1 0.1 -Total Square Cm 3.6 0.01 -Photo Taken No -Epithelialization Small 1-33% -Tunneling No -Undermining/Tunneling No -Circular Undermining No -Exudate Amt Medium Small Medium -Exudate Type Serosanguineous Serosanguineous Yellow/Green -Wound Margin Distinct, Distinct, Distinct, Outline Outline Outline Attached Attached Attached -Granulation Amt Small (1-33%) Medium (34-66%) -Granulation Quality [place] -Necrosis Amt Large (67-100%) Small (1-33%) -Necrotic Tissue Type Adherent Slough Adherent Slough -Structure Exposed None/Limited to Skin Breakdown -Texture (Hannah-wound Skin Appearance) Callus,Scarring Assessed,Callus Assessed -Moisture (Hannah-wound Skin Appearance) No Abnormality Assessed, Assessed Maceration -Color (Hannah-wound Skin Appearance) No Abnormality Assessed Assessed -Temperature (Hannah-wound Skin No Abnormality No Abnormality No Abnormality Appearance) (Pt Warm) (Pt Warm) (Pt Warm) -Tenderness on Palpation (Hannah-wound No No Skin Appearance) -Ulcer Cleansing Not Cleansed Soap and Water Soap and Water -Foul Odor after Cleansing No No -Anesthetic Used 5% Lidocaine 5% Lidocaine Gel Gel Lower Limb Edema Present Yes Right Calf (cm) 48.5 46 47.5 Right Ankle (cm) 31.5 31.5 23.3 Left Calf (cm) 48 47 44.0 Left Ankle (cm) 31.5 32.5 32.3 05/23/23 05/25/23 13:28 13:59 Wound Center Nurse 1 #4- L MED HEEL -Current Size (cm) - Length 0.5 -Current Size (cm) - Width 0.6 -Current Size (cm) - Depth 0.1 -Total Square Cm 0.30 -Photo Taken -Epithelialization -Tunneling -Undermining/Tunneling -Circular Undermining -Exudate Amt Medium -Exudate Type Serosanguineous -Wound Margin Thickened -Granulation Amt Small (1-33%) -Granulation Quality [place] -Necrosis Amt Small (1-33%) -Necrotic Tissue Type Adherent Slough -Structure Exposed N/A -Texture (Hannah-wound Skin Appearance) Scarring -Moisture (Hannah-wound Skin Appearance) Dry/Scaly -Color (Hannah-wound Skin Appearance) Hemosiderin Staining -Temperature (Hannah-wound Skin No Abnormality Appearance) (Pt Warm) -Tenderness on Palpation (Hannah-wound No Skin Appearance) -Ulcer Cleansing Soap and Water -Foul Odor after Cleansing No -Anesthetic Used 5% Lidocaine Gel Lower Limb Edema Present Right Calf (cm) 47.8 47 Right Ankle (cm) 30.3 30.4 Left Calf (cm) 45.6 47.3 Left Ankle (cm) 31.7 31.2 WC - Nurse 2 - General Ulcer CM Notes Start: 05/09/23 14:00 Freq: Status: Active Protocol: Activity Type Activity Date Activity User E-sign Co-sign Detail Recorded Client Recorded Date Recorded By Document 05/11/23 09:49 Desktop 05/11/23 09:56 Document 05/18/23 14:40 Laptop 05/18/23 14:45 Document 05/25/23 14:27 Laptop 05/25/23 14:32 05/11/23 05/18/23 05/25/23 09:49 14:40 14:27 Wound Center Nurse 2 #4- L MED HEEL -Time 09:49 14:41 14:29 -Correct Patient Yes Yes Yes -Correct Side, Site, Position Yes Yes Yes -Correct Procedure Yes Yes Yes -Procedure Performed Yes Yes Yes -Type of Procedure Debridement Debridement Debridement -Clinical Debridement Subcutaneous Subcutaneous Subcutaneous -Tissue Removed Subcutaneous Subcutaneous Subcutaneous -Post Debridement (cm) - Length 2.3 0.8 1.0 -Post Debridement (cm) - Width 1.5 1.5 2.2 -Post Debridement (cm) - Depth 0.1 0.1 0.1 -Total Square (Post) (cm) 3.45 1.20 2.20 -Area of Debridement (cm) - Length 2.3 0.8 1.0 -Area of Debridement (cm) - Width 1.5 1.5 2.2 -Total Square (Area) (cm) 3.45 1.20 2.20 -Tunneling No No No -Undermining/Tunneling No No No -Circular Undermining No No No -Wound/Ulcer Outcome Not Healed Not Healed Not Healed -Ulcer Cleansing Rinsed/ Rinsed/ Rinsed/ Irrigated with Irrigated with Irrigated with Saline Saline Saline -Foul Odor after Cleansing No No No -Bioengineered Tissue No No No -Bleeding Controlled with Pressure,Silver Pressure Pressure Nitrate -Treatment Response Procedure Procedure Procedure Tolerated Well Tolerated Well Tolerated Well -Offloading No No No -Debridement - Subq, 1st 20sq cm Yes Yes Yes Pain Scale: 0-10 Numeric Is Patient Pain Free? Yes Yes Yes WC - Nurse 3 - General Ulcer D/C NN Start: 05/09/23 14:00 Freq: Status: Active Protocol: Activity Type Activity Date Activity User E-sign Co-sign Detail Recorded Client Recorded Date Recorded By Document 05/09/23 14:00 DL Desktop 05/09/23 14:03 DL Document 05/11/23 10:20 DL Desktop 05/11/23 10:22 DL Document 05/16/23 13:39 BMF Desktop 05/16/23 13:40 BMF Document 05/18/23 14:54 KW Desktop 05/18/23 14:55 KW Document 05/23/23 13:29 KW Desktop 05/23/23 13:29 KW Document 05/25/23 14:58 GM Desktop 05/25/23 15:00 GM 05/09/23 05/11/23 05/16/23 14:00 10:20 13:39 Vital Signs Temperature (97.8 F-99.1 F) 97.2 F L 98 F Temperature Source Temporal Temporal Pulse Rate (60-100) 60 60 Pulse Location Monitor Monitor Respiratory Rate (12-18) 16 Respiratory rate source Observation Observation Oxygen Delivery Method Room Air Blood Pressure (90/60-120/80) 141/49 H 156/66 H Blood Pressure Mean (mm Hg) 79 96 Source Monitor Monitor Position Sitting Blood Pressure Location Left Forearm Pain Scale: 0-10 Numeric Is Patient Pain Free? Yes Yes Yes Wound Care Center Nurse 3 #4- L MED HEEL -Ulcer Cleansing Soap and Water Soap and Water Soap and Water -Foul Odor after Cleansing No No No -Primary Dressing Applied Aquacel AG 4x4 Promogran Suellen Matter -Other Dressing suellen -Primary Dressing Covered/Secured with Dry Gauze & Dry Gauze & Dry Gauze & Roll Gauze, Roll Gauze, Roll Gauze, Secured with Secured with Secured with Tape Tape Tape -Other Covering Padding to heel hat w/ heels fluffed gauze -Aquacel AG 4x4 1 -Promogran Suellen Matter 1 alvaro -Lotion applied to leg before compression wrap -Multi-Layered Wrap Application Multi-Layer Multi-Layer Multi-Layer Comp - Bilat ($ Comp - Bilat ($ Comp - Bilat ($ ) ) ) Treatment Response Procedure Procedure Procedure Tolerated Well Tolerated Well Tolerated Well WC - Visit Discharge Discharge Condition Stable Stable Stable Ambulatory Status Ambulatory Ambulatory, Ambulatory, Walker Walker Transportation Private Auto Private Auto Private Auto Accompanied by Medication Reconcilliation completed & provided to patient/care provider Clinical Summary of Care Provided Facility Type Home Health Orders Sent Yes 05/18/23 05/23/23 05/25/23 14:54 13:29 14:58 Vital Signs Temperature (97.8 F-99.1 F) Temperature Source Pulse Rate (60-100) Pulse Location Respiratory Rate (12-18) Respiratory rate source Oxygen Delivery Method Blood Pressure (90/60-120/80) Blood Pressure Mean (mm Hg) Source Position Blood Pressure Location Pain Scale: 0-10 Numeric Is Patient Pain Free? Yes Yes Yes Wound Care Center Nurse 3 #4- L MED HEEL -Ulcer Cleansing Soap and Water Not Cleansed -Foul Odor after Cleansing No -Primary Dressing Applied Other -Other Dressing used remainder of his suellen and covered by abd -Primary Dressing Covered/Secured with Dry Gauze Dry Gauze & Dry Gauze & Roll Gauze, Roll Gauze, Secured with Secured with Tape Tape -Other Covering -Aquacel AG 4x4 -Promogran Suellen Matter alvaro -Lotion applied to leg before Yes compression wrap -Multi-Layered Wrap Application Multi-Layer Multi-Layer Multi-Layer Comp - Bilat ($ Comp - Bilat ($ Comp - Bilat ($ ) ) ) Treatment Response WC - Visit Discharge Discharge Condition Stable Stable Stable Ambulatory Status Ambulatory, Ambulatory, Ambulatory, Walker Wheelchair Walker Transportation Private Auto Private Auto Private Auto Accompanied by Medication Reconcilliation completed & No No Yes provided to patient/care provider Clinical Summary of Care Provided Yes Yes Yes Facility Type Orders Sent Assessment/Plan Assessment/Plan (1) Non-pressure chronic ulcer of other part of left foot with fat layer exposed: CODE(S): L97.522 - Non-pressure chronic ulcer of other part of left foot with fat layer exposed PLAN: Patient was examined and evaluated. All findings were discussed with the patient. All questions were answered to the patient satisfaction. Excisional debridement down to including subcutaneous tissue with a number 5 mm dermal curette to the left heel full-thickness ulceration without incident. Predebridement measurement is 0.5 x 0.6 x 0.1 cm. Postdebridement measurement is 1.0 x 2.2 x 0.1 cm. The ulceration dressed with Betadine soaked gauze dry sterile dressing and bilateral 3M wraps. Patient is pending lymphedema pumps. Educated the patient and his that the patient needs to get his regular inserts back in his shoes as he is rubbing on his current inserts are most likely causing continued breakdown of his skin. This was shown and demonstrated to the patient's secondary to the patient being blind. She was understanding of this. Patient will follow-up with Dr. Spann at the wound care center in 2 week. (2) Peripheral vascular disease: CODE(S): I73.9 - Peripheral vascular disease, unspecified (3) Lymphedema, not elsewhere classified: CODE(S): I89.0 - Lymphedema, not elsewhere classified
[2023-06-01 14:31] VITALS: BP 151/85; PULSE 67; RESP 22; TEMP 36.4
== END 2023-06-05 23:59 | disposition home or self-care (01) ==
LOC: WC 14:15
PROVIDERS: PCP Internal Medicine; Referring Provider Internal Medicine; Visit Provider Podiatrist Foot & Ankle Surgery
DX: E11.621 Type 2 diabetes mellitus with foot ulcer (principal); L97.422 Non-pressure chronic ulcer of left heel and midfoot with fat layer exposed; L97.519 Non-pressure chronic ulcer of other part of right foot with unspecified severity; I48.91 Unspecified atrial fibrillation; E11.42 Type 2 diabetes mellitus with diabetic polyneuropathy; E11.51 Type 2 diabetes mellitus with diabetic peripheral angiopathy without gangrene; I10 Essential (primary) hypertension; I89.0 Lymphedema, not elsewhere classified; E78.5 Hyperlipidemia, unspecified; R60.0 Localized edema; I87.2 Venous insufficiency (chronic) (peripheral); G47.00 Insomnia, unspecified; H54.8 Legal blindness, as defined in USA
CPT/HCPCS: 11042; 29581

== ENCOUNTER 2023-06-29 14:00 | Outpatient (RCR) | payer MEDICARE, OTHER, SELFPAY ==
[2023-06-06 00:40] VITALS: BP 151/85; PULSE 67; RESP 22; TEMP 36.4
[2023-06-08 13:59] VITALS: RESP 18; TEMP 36.3
--- NOTE | 2023-06-08 14:51 | PN.PCM_ITS ---
History of Present Illness Date of Service: 06/08/23 Chief Complaint: Right foot ulcer History of Wound: This 76-year-old male with significant PMHx of diabetes type II with peripheral polyneuropathy, atrial fibrillation, hyperlipidemia, HTN, blindness, insomnia, history of acute renal failure, retinitis pigmentosa, Kaposi sarcoma right foot, and history of venous insufficiency with multiple procedural interventions was seen for right and left foot ulcer. Last seen by Dr. Moore, vascular specialist in 2020. Patient has not gone back for continued evaluation. Does have confirmed venous insufficiency of the great saphenous vein bilateral with bilateral lower extremity edema and lymphedema. He denies N/V/F/chills. He denies redness or odor to the foot bilateral. He is with his today. states that he had been following with Dr. Natalia Hernandez, [facility] in office following dispense of Sigvaris compression wrap and bilateral AFO braces made by [employer]. states that these braces have caused rubbing on the inside of the heel of both feet that had formed a blister and eventually broke open into a wound. States that they have not healed in the last month and Dr. Hernandez referred them to the wound care center for further evaluation. Subjective Subjective Mr. Renae is a 77-year-old diabetic male who is presenting to the wound care center today for follow-up and evaluation of bilateral heel wounds. Patient is legally blind. His wound care at home is provided by his . Patient has history of chronic wound to the medial heels secondary to pressure. Patient's right heel is now healed. He still has evidence of full-thickness ulceration to left heel. He is wearing his CircAid's today secondary to getting his 3M wraps wet. He admits that blood sugar is now controlled. He is still waiting his di abetic shoes from our office. Denies trauma. Denies constitutional symptoms. No other pedal complaints at this time. Objective Data Objective Data Vital Signs: Vital Signs Temp Pulse Resp BP O2 Del Method 97.4 F L 67 18 151/85 H Room Air 06/08/23 13:59 06/06/23 00:40 06/08/23 13:59 06/06/23 00:40 06/08/23 13:59 Oxygen Delivery Method Room Air Weight: 2.722 kg Body Mass Index (BMI) 0.0 Physical Exam Narrative Vascular: DP and PT pulses are palpable. CFT is brisk. +1 pitting edema appreciated to bilateral lower extremity. Evidence of blanchable erythema appreciated to the bilateral heels. Neurological: Light touch intact. Protective sensation is absent. Patient does not respond to painful stimuli. Dermatological: Full-thickness ulceration left medial heel ulceration measures 1.2 x 0.8 x 0.1 cm. Wound base to the right heel is under granular nature. The right heel shows no evidence of infection. Excisional debridement down to including subcutaneous tissue with a number 5 mm dermal curette to the left heel full-thickness ulceration without incident. Predebridement measurement is 0.8 x 0.6 x 0.1 cm. Postdebridement measurement is 1.2 x 0.8 x 0.1 cm. Musculoskeletal: No pain on palpation to the full-thickness ulceration. No pain with calf compression. Debridement Note Debridement Note Debridement Free Text: Excisional debridement down to including subcutaneous tissue with a number 5 mm dermal curette to the left heel full-thickness ulceration without incident. Predebridement measurement is 0.8 x 0.6 x 0.1 cm. Postdebridement measurement is 1.2 x 0.8 x 0.1 cm. Post-Debridement Measurements and Additional Note: Post-Debridement Measurements/Treatment - Nurse 1 - General Ulcer Assessment Start: 06/08/23 13:59 Freq: Status: Active Protocol: WC.LOWEXT Activity Type Activity Date Activity User E-sign Co-sign Detail Recorded Client Recorded Date Recorded By Document 06/08/23 13:59 KW Desktop 06/08/23 14:14 KW 06/08/23 13:59 - Today's Visit Information Type of service Follow-up Visit (Physician/CONTAMIN[employer] LAND CONSULTANT ) Arrival Mode Ambulatory, Walker Accompanied by Patient Identification Verified (Name & Yes ) Height and Weight Body Mass Index (BMI) 0.0 BMI Classification Underweight Vital Signs Temperature (97.8 F-99.1 F) 97.4 F L Temperature Source Temporal Respiratory Rate (12-18) 18 Respiratory rate source Observation Oxygen Delivery Method Room Air History Since Last Visit- (Skip if this is Patient's initial visit) Have you changed medications since your No last visit? Any new allergies or adverse reactions No Had a fall/change in ADL's that may No increase risk of falls Signs or symptoms of abuse and/or No neglect since last visit Have you been in the hospital since your No last visit? Has dressing in place as prescribed Yes Has compression in place as prescribed Yes Has offloadiing in place as prescribed N/A Experienced any changes in pain level or No management Left Footwear Regular Shoe Right Footwear Regular Shoe Pain Scale: 0-10 Numeric Is Patient Pain Free? Yes - Nurse 1 - General Ulcer Measurement Start: 06/08/23 13:59 Freq: Status: Active Protocol: Activity Type Activity Date Activity User E-sign Co-sign Detail Recorded Client Recorded Date Recorded By Document 06/08/23 13:59 KW Desktop 06/08/23 14:14 KW 06/08/23 13:59 Wound Center Nurse 1 #4- L MED HEEL -Current Size (cm) - Length 1.1 -Current Size (cm) - Width 0.5 -Current Size (cm) - Depth 0.1 -Total Square Cm 0.55 -Exudate Amt Small -Exudate Type Serosanguineous -Wound Margin Distinct, Outline Attached -Granulation Amt Large (67-100%) -Granulation Quality [place] -Necrosis Amt Small (1-33%) -Necrotic Tissue Type Adherent Slough -Texture (Hannah-wound Skin Appearance) Assessed,Callus -Moisture (Hannah-wound Skin Appearance) Maceration -Color (Hannah-wound Skin Appearance) Assessed -Temperature (Hannah-wound Skin No Abnormality Appearance) (Pt Warm) -Ulcer Cleansing Soap and Water -Foul Odor after Cleansing No -Anesthetic Used 5% Lidocaine Gel Left Calf (cm) 47 Left Ankle (cm) 42 - Nurse 2 - General Ulcer CM Notes Start: 06/08/23 13:59 Freq: Status: Active Protocol: Activity Type Activity Date Activity User E-sign Co-sign Detail Recorded Client Recorded Date Recorded By Document 06/08/23 14:27 Laptop 06/08/23 14:29 06/08/23 14:27 Wound Center Nurse 2 #4- L MED HEEL -Time 14:27 -Correct Patient Yes -Correct Side, Site, Position Yes -Correct Procedure Yes -Procedure Performed Yes -Type of Procedure Debridement -Clinical Debridement Subcutaneous -Tissue Removed Subcutaneous -Post Debridement (cm) - Length 1.2 -Post Debridement (cm) - Width 0.8 -Post Debridement (cm) - Depth 0.1 -Total Square (Post) (cm) 0.96 -Area of Debridement (cm) - Length 1.2 -Area of Debridement (cm) - Width 0.8 -Total Square (Area) (cm) 0.96 -Tunneling No -Undermining/Tunneling No -Circular Undermining No -Wound/Ulcer Outcome Not Healed -Ulcer Cleansing Rinsed/ Irrigated with Saline -Foul Odor after Cleansing No -Bioengineered Tissue No -Bleeding Controlled with Pressure -Treatment Response Procedure Tolerated Well -Offloading No -Debridement - Subq, 1st 20sq cm Yes Pain Scale: 0-10 Numeric Is Patient Pain Free? Yes - Nurse 3 - General Ulcer D/C NN Start: 06/08/23 13:59 Freq: Status: Active Protocol: Activity Type Activity Date Activity User E-sign Co-sign Detail Recorded Client Recorded Date Recorded By Document 06/08/23 14:38 KW Desktop 06/08/23 14:39 KW 06/08/23 14:38 Wound Care Center Nurse 3 #4- L MED HEEL -Ulcer Cleansing Rinsed/ Irrigated with Saline -Primary Dressing Applied Promogran Catherine Matter -Primary Dressing Covered/Secured with Dry Gauze,Dry Gauze & Roll Gauze,Secured with Tape -Promogran Catherine Matter 1 Pain Scale: 0-10 Numeric Is Patient Pain Free? Yes - Visit Discharge Discharge Condition Stable Ambulatory Status Ambulatory, Walker Transportation Private Auto Medication Reconcilliation completed & No provided to patient/care provider Clinical Summary of Care Provided Yes Assessment/Plan Assessment/Plan (1) Non-pressure chronic ulcer of other part of left foot with fat layer exposed: CODE(S): L97.522 - Non-pressure chronic ulcer of other part of left foot with fat layer exposed PLAN: Patient was examined and evaluated. All findings were discussed with the patient. All questions were answered to the patient's satisfaction. Excisional debridement down to including subcutaneous tissue with a number 5 mm dermal curette to the left heel full-thickness ulceration without incident. Predebridement measurement is 0.8 x 0.6 x 0.1 cm. Postdebridement measurement is 1.2 x 0.8 x 0.1 cm. The patient will be placed back in his bilateral CircAid's and diabetic shoes. The patient is allowed to wash his bilateral lower extremity but not soak his left foot. The patient and his are understanding of this. The patient will continue home dressing changes every other day with Catherine and dry sterile dressing and CircAid's to left lower extremity. Though continue to evaluate the patient bilateral lower extremity and provide strict blood sugar control. Both the patient and her are understanding. Follow-up at the wound care center with Dr. Spann in 2 week. (2) Lymphedema, not elsewhere classified: CODE(S): I89.0 - Lymphedema, not elsewhere classified
[2023-06-22 14:12] VITALS: BP 147/68; PULSE 68; RESP 16; TEMP 36.4
--- NOTE | 2023-06-22 15:05 | PCM.WC.PN ---
History of Present Illness Date of Service: 06/22/23 Chief Complaint: Right foot ulcer History of Wound: This 76-year-old male with significant PMHx of diabetes type II with peripheral polyneuropathy, atrial fibrillation, hyperlipidemia, HTN, blindness, insomnia, history of acute renal failure, retinitis pigmentosa, Kaposi sarcoma right foot, and history of venous insufficiency with multiple procedural interventions was seen for right and left foot ulcer. Last seen by Dr. Moore, vascular specialist in 2020. Patient has not gone back for continued evaluation. Does have confirmed venous insufficiency of the great saphenous vein bilateral with bilateral lower extremity edema and lymphedema. He denies N/V/F/chills. He denies redness or odor to the foot bilateral. He is with his today. states that he had been following with Dr. Natalia Hernandez, [facility] in office following dispense of Sigvaris compression wrap and bilateral AFO braces made by [employer]. states that these braces have caused rubbing on the inside of the heel of both feet that had formed a blister and eventually broke open into a wound. States that they have not healed in the last month and Dr. Hernandez referred them to the wound care center for further evaluation. Subjective Subjective Mr. Renae is a 77-year-old diabetic male presenting to the wound care center today for follow-up evaluation of left medial heel ulceration. Patient has gotten his pumps but not has used them yet. He has kept his CircAid's clean dry and intact. His states that his wound is draining a greenish color. She is unsure how it happened as the wound was almost healed. Patient has been a controlled diabetic during his treatment. He is grateful for his care. He has not been using his AFOs at this time. Denies trauma. Denies constitutional symptoms. No other complaints at this time. Objective Data Objective Data Vital Signs: Vital Signs Temp Pulse Resp BP O2 Del Method 97.6 F L 68 16 147/68 H Room Air 06/22/23 14:12 06/22/23 14:12 06/22/23 14:12 06/22/23 14:12 06/22/23 14:12 Oxygen Delivery Method Room Air Weight: 2.722 kg Body Mass Index (BMI) 0.0 Physical Exam Narrative Vascular: DP and PT pulses are palpable. CFT is brisk. +1 pitting edema appreciated to bilateral lower extremity. Evidence of blanchable erythema appreciated to the bilateral heels. Neurological: Light touch intact. Protective sensation is absent. Patient does not respond to painful stimuli. Dermatological: Full-thickness ulceration left medial heel ulceration measures 2.0 x 2.3 x 0.1 cm. Wound base to the right heel is under granular nature, with evidence of green periwound. Concern for infection. Excisional debridement down to including subcutaneous tissue with a number 5 mm dermal curette to the left heel full-thickness ulceration without incident. Predebridement measurement is 1.3 x 1.0 x 0.1 cm. Postdebridement measurement is 2.0 x 2.3 x 0.1 cm. Musculoskeletal: No pain on palpation to the full-thickness ulceration. No pain with calf compression. Debridement Note Debridement Note Debridement Free Text: Excisional debridement down to including subcutaneous tissue with a number 5 mm dermal curette to the left heel full-thickness ulceration without incident. Predebridement measurement is 1.3 x 1.0 x 0.1 cm. Postdebridement measurement is 2.0 x 2.3 x 0.1 cm. Post-Debridement Measurements and Additional Note: Post-Debridement Measurements/Treatment - Nurse 1 - General Ulcer Assessment Start: 06/08/23 13:59 Freq: Status: Active Protocol: WC.LOWEXT Activity Type Activity Date Activity User E-sign Co-sign Detail Recorded Client Recorded Date Recorded By Document 06/08/23 13:59 KW Desktop 06/08/23 14:14 KW Document 06/22/23 14:12 CP Desktop 06/22/23 14:15 CP 06/08/23 06/22/23 13:59 14:12 - Today's Visit Information Type of service Follow-up Visit Follow-up Visit (Physician/CERTIFIED HYPERBARIC TECHNICIAN (Physician/CERTIFIED HYPERBARIC TECHNICIAN ) ) Arrival Mode Ambulatory, Ambulatory, Walker Walker Accompanied by Patient Identification Verified (Name & Yes Yes ) Patient Requires Transmission-Based No Precautions Safety Precautions Fall Prevention Height and Weight Body Mass Index (BMI) 0.0 0.0 BMI Classification Underweight Underweight Vital Signs Temperature (97.8 F-99.1 F) 97.4 F L 97.6 F L Temperature Source Temporal Temporal Pulse Rate (60-100) 68 Pulse Location Monitor Respiratory Rate (12-18) 18 16 Respiratory rate source Observation Observation Oxygen Delivery Method Room Air Room Air Blood Pressure (90/60-120/80) 147/68 H Blood Pressure Mean (mm Hg) 94 Source Monitor Position Semi-Fowlers Blood Pressure Location Right Arm History Since Last Visit- (Skip if this is Patient's initial visit) Have you changed medications since your No No last visit? Any new allergies or adverse reactions No No Had a fall/change in ADL's that may No No increase risk of falls Signs or symptoms of abuse and/or No No neglect since last visit Have you been in the hospital since your No No last visit? Has dressing in place as prescribed Yes Yes Has compression in place as prescribed Yes Yes Has offloadiing in place as prescribed N/A N/A Experienced any changes in pain level or No No management Left Footwear Regular Shoe Regular Shoe Right Footwear Regular Shoe Regular Shoe Pain Scale: 0-10 Numeric Is Patient Pain Free? Yes Yes WC - Nurse 1 - General Ulcer Measurement Start: 06/08/23 13:59 Freq: Status: Active Protocol: Activity Type Activity Date Activity User E-sign Co-sign Detail Recorded Client Recorded Date Recorded By Document 06/08/23 13:59 KW Desktop 06/08/23 14:14 KW Document 06/22/23 14:12 CP Desktop 06/22/23 14:15 CP 06/08/23 06/22/23 13:59 14:12 Wound Center Nurse 1 #4- L MED HEEL -Current Size (cm) - Length 1.1 1.3 -Current Size (cm) - Width 0.5 1 -Current Size (cm) - Depth 0.1 0.1 -Total Square Cm 0.55 1.3 -Epithelialization None Present -Exudate Amt Small Small -Exudate Type Serosanguineous Serosanguineous -Wound Margin Distinct, Thickened Outline Attached -Granulation Amt Large (67-100%) Large (67-100%) -Granulation Quality [place] -Slough/Fibrin Yes -Necrosis Amt Small (1-33%) Small (1-33%) -Necrotic Tissue Type Adherent Slough Adherent Slough -Structure Exposed N/A -Texture (Hannah-wound Skin Appearance) Assessed,Callus Callus -Moisture (Hannah-wound Skin Appearance) Maceration Maceration -Color (Hannah-wound Skin Appearance) Assessed No Abnormality -Temperature (Hannah-wound Skin No Abnormality No Abnormality Appearance) (Pt Warm) (Pt Warm) -Tenderness on Palpation (Hannah-wound No Skin Appearance) -Ulcer Cleansing Soap and Water Rinsed/ Irrigated with Saline -Foul Odor after Cleansing No No -Anesthetic Used 5% Lidocaine 5% Lidocaine Gel Gel Left Calf (cm) 47 50 Left Ankle (cm) 42 31.9 - Nurse 2 - General Ulcer CM Notes Start: 06/08/23 13:59 Freq: Status: Active Protocol: Activity Type Activity Date Activity User E-sign Co-sign Detail Recorded Client Recorded Date Recorded By Document 06/08/23 14:27 Laptop 06/08/23 14:29 Document 06/22/23 14:25 Laptop 06/22/23 14:26 06/08/23 06/22/23 14:27 14:25 Wound Center Nurse 2 #4- L MED HEEL -Time 14:27 14:25 -Correct Patient Yes Yes -Correct Side, Site, Position Yes Yes -Correct Procedure Yes Yes -Procedure Performed Yes Yes -Type of Procedure Debridement Debridement -Clinical Debridement Subcutaneous Subcutaneous -Tissue Removed Subcutaneous Subcutaneous -Post Debridement (cm) - Length 1.2 2 -Post Debridement (cm) - Width 0.8 2.3 -Post Debridement (cm) - Depth 0.1 0.1 -Total Square (Post) (cm) 0.96 4.6 -Area of Debridement (cm) - Length 1.2 2.0 -Area of Debridement (cm) - Width 0.8 2.3 -Total Square (Area) (cm) 0.96 4.60 -Tunneling No No -Undermining/Tunneling No No -Circular Undermining No No -Wound/Ulcer Outcome Not Healed Not Healed -Ulcer Cleansing Rinsed/ Rinsed/ Irrigated with Irrigated with Saline Saline -Foul Odor after Cleansing No No -Bioengineered Tissue No No -Bleeding Controlled with Pressure Pressure,Silver Nitrate -Treatment Response Procedure Procedure Tolerated Well Tolerated Well -Offloading No No -Debridement - Subq, 1st 20sq cm Yes Yes Pain Scale: 0-10 Numeric Is Patient Pain Free? Yes Yes - Nurse 3 - General Ulcer D/C NN Start: 06/08/23 13:59 Freq: Status: Active Protocol: Activity Type Activity Date Activity User E-sign Co-sign Detail Recorded Client Recorded Date Recorded By Document 06/08/23 14:38 KW Desktop 06/08/23 14:39 KW Document 06/22/23 14:42 DL Desktop 06/22/23 14:43 DL 06/08/23 06/22/23 14:38 14:42 Wound Care Center Nurse 3 #4- L MED HEEL -Ulcer Cleansing Rinsed/ Rinsed/ Irrigated with Irrigated with Saline Saline -Foul Odor after Cleansing No -Primary Dressing Applied Promogran Catherine Matter -Other Dressing betadine -Primary Dressing Covered/Secured with Dry Gauze,Dry Dry Gauze & Gauze & Roll Roll Gauze, Gauze,Secured Secured with with Tape Tape -Other Covering circ aid -Promogran Catherine Matter 1 Treatment Response Procedure Tolerated Well Pain Scale: 0-10 Numeric Is Patient Pain Free? Yes Yes WC - Visit Discharge Discharge Condition Stable Stable Ambulatory Status Ambulatory, Ambulatory, Walker Walker Transportation Private Auto Private Auto Medication Reconcilliation completed & No provided to patient/care provider Clinical Summary of Care Provided Yes Assessment/Plan Assessment/Plan (1) Non-pressure chronic ulcer of other part of left foot with fat layer exposed: CODE(S): L97.522 - Non-pressure chronic ulcer of other part of left foot with fat layer exposed PLAN: Patient was examined and evaluated. All findings were discussed with the patient. All questions were answered to the patient's satisfaction. Excisional debridement down to including subcutaneous tissue with a number 5 mm dermal curette to the left heel full-thickness ulceration without incident. Predebridement measurement is 1.3 x 1.0 x 0.1 cm. Postdebridement measurement is 2.0 x 2.3 x 0.1 cm. Left lower extremities were cleaned and patted dry. The ulceration was dressed with Betadine soaked gauze dry sterile dressing and CircAid wraps were applied to the left lower extremity. Patient was instructed to begin using his dorsiflexion assist AFO braces wear shoe gear. He was understanding of this. The patient will be placed on ciprofloxacin 750 mg twice daily for 2 weeks for concerns of Pseudomonas infection. Culture was taken of the left foot wound. Will adjust antibiotics if needed. Educated the patient to start to use his pneumatic pumps he was understanding of this. Follow-up at the wound care center with Dr. Spann in 1 week. (2) Cellulitis of foot: CODE(S): L03.119 - Cellulitis of unspecified part of limb (3) Peripheral vascular disease: CODE(S): I73.9 - Peripheral vascular disease, unspecified (4) Lymphedema, not elsewhere classified: CODE(S): I89.0 - Lymphedema, not elsewhere classified
[2023-06-29 11:33] VITALS: BP 158/73; PULSE 55; RESP 18; TEMP 36.7
--- NOTE | 2023-06-29 11:33 | PCM.WC.PN ---
History of Present Illness Date of Service: 06/29/23 Chief Complaint: Right foot ulcer History of Wound: This 76-year-old male with significant PMHx of diabetes type II with peripheral polyneuropathy, atrial fibrillation, hyperlipidemia, HTN, blindness, insomnia, history of acute renal failure, retinitis pigmentosa, Kaposi sarcoma right foot, and history of venous insufficiency with multiple procedural interventions was seen for right and left foot ulcer. Last seen by Dr. Moore, vascular specialist in 2020. Patient has not gone back for continued evaluation. Does have confirmed venous insufficiency of the great saphenous vein bilateral with bilateral lower extremity edema and lymphedema. He denies N/V/F/chills. He denies redness or odor to the foot bilateral. He is with his today. states that he had been following with Dr. Natalia Hernandez, [place].P.Aura in office following dispense of Sigvaris compression wrap and bilateral AFO braces made by [employer]. states that these braces have caused rubbing on the inside of the heel of both feet that had formed a blister and eventually broke open into a wound. States that they have not healed in the last month and Dr. Hernandez referred them to the wound care center for further evaluation. Subjective Subjective Mr. Renae is a 77-year-old diabetic male presenting to clinic today for follow-up and evaluation of full-thickness ulceration to the left leg. Patient was seen in private office yesterday and procured his diabetic shoes and inserts. Patient understands the break-in policy and is following it strictly. He presents today wearing his old athletic shoes with bilateral AFOs for support. Patient's states his wound is improving. She is wondering if the culture has grown any bacteria and if he needs to be on antibiotics. He denies any trauma. Denies constitutional symptoms. Other pedal complaints at this time. Objective Data Objective Data Vital Signs: Vital Signs Temp Pulse Resp BP O2 Del Method 97.6 F L 68 16 147/68 H Room Air 06/22/23 14:12 06/22/23 14:12 06/22/23 14:12 06/22/23 14:12 06/22/23 14:12 Oxygen Delivery Method Room Air Weight: 2.722 kg Body Mass Index (BMI) 0.0 Lab / Micro Data Micro: Microbiology 06/22/23 14:22 Tissue Ulcer - Other Gram Stain - Final 06/22/23 14:22 Tissue Ulcer - Other Wound Culture - Final Pseudomonas aeruginosa 06/22/23 14:22 Tissue Ulcer - Other Anaerobic Culture - Final Anaerobic cocci Physical Exam Narrative Vascular: DP and PT pulses are palpable. CFT is brisk. +1 pitting edema appreciated to bilateral lower extremity. Evidence of blanchable erythema appreciated to the bilateral legs. Neurological: Light touch intact. Protective sensation is absent. Patient does not respond to painful stimuli. Dermatological: Full-thickness ulceration left medial heel ulceration measures 1.9 x 2.0 x 0.1 cm. Wound base to the right heel is under granular nature, with evidence of green periwound. Concern for infection. Excisional debridement down to including subcutaneous tissue with a number 5 mm dermal curette to the left heel full-thickness ulceration without incident. Predebridement measurement is 1.5 x 1.4 x 0.1 cm. Postdebridement measurement is 1.9 x 2.0 x 0.1 cm. Musculoskeletal: No pain on palpation to the full-thickness ulceration. Pain with calf compression. Debridement Note Debridement Note Debridement Free Text: Excisional debridement down to including subcutaneous tissue with a number 5 mm dermal curette to the left heel full-thickness ulceration without incident. Predebridement measurement is 1.5 x 1.4 x 0.1 cm. Postdebridement measurement is 1.9 x 2.0 x 0.1 cm. Post-Debridement Measurements and Additional Note: Post-Debridement Measurements/Treatment - Nurse 1 - General Ulcer Assessment Start: 06/08/23 13:59 Freq: Status: Active Protocol: [email or web address] Activity Type Activity Date Activity User E-sign Co-sign Detail Recorded Client Recorded Date Recorded By Document 06/08/23 13:59 KW Desktop 06/08/23 14:14 KW Document 06/22/23 14:12 CP Desktop 06/22/23 14:15 CP 06/08/23 06/22/23 13:59 14:12 WC - Today's Visit Information Type of service Follow-up Visit Follow-up Visit (Physician/RE DYE HAND (Physician/RE DYE HAND ) ) Arrival Mode Ambulatory, Ambulatory, Walker Walker Accompanied by Patient Identification Verified (Name & Yes Yes ) Patient Requires Transmission-Based No Precautions Safety Precautions Fall Prevention Height and Weight Body Mass Index (BMI) 0.0 0.0 BMI Classification Underweight Underweight Vital Signs Temperature (97.8 F-99.1 F) 97.4 F L 97.6 F L Temperature Source Temporal Temporal Pulse Rate (60-100) 68 Pulse Location Monitor Respiratory Rate (12-18) 18 16 Respiratory rate source Observation Observation Oxygen Delivery Method Room Air Room Air Blood Pressure (90/60-120/80) 147/68 H Blood Pressure Mean (mm Hg) 94 Source Monitor Position Semi-Fowlers Blood Pressure Location Right Arm History Since Last Visit- (Skip if this is Patient's initial visit) Have you changed medications since your No No last visit? Any new allergies or adverse reactions No No Had a fall/change in ADL's that may No No increase risk of falls Signs or symptoms of abuse and/or No No neglect since last visit Have you been in the hospital since your No No last visit? Has dressing in place as prescribed Yes Yes Has compression in place as prescribed Yes Yes Has offloadiing in place as prescribed N/A N/A Experienced any changes in pain level or No No management Left Footwear Regular Shoe Regular Shoe Right Footwear Regular Shoe Regular Shoe Pain Scale: 0-10 Numeric Is Patient Pain Free? Yes Yes WC - Nurse 1 - General Ulcer Measurement Start: 06/08/23 13:59 Freq: Status: Active Protocol: Activity Type Activity Date Activity User E-sign Co-sign Detail Recorded Client Recorded Date Recorded By Document 06/08/23 13:59 KW Desktop 06/08/23 14:14 KW Document 06/22/23 14:12 CP Desktop 06/22/23 14:15 CP 06/08/23 06/22/23 13:59 14:12 Wound Center Nurse 1 #4- L MED HEEL -Current Size (cm) - Length 1.1 1.3 -Current Size (cm) - Width 0.5 1 -Current Size (cm) - Depth 0.1 0.1 -Total Square Cm 0.55 1.3 -Epithelialization None Present -Exudate Amt Small Small -Exudate Type Serosanguineous Serosanguineous -Wound Margin Distinct, Thickened Outline Attached -Granulation Amt Large (67-100%) Large (67-100%) -Granulation Quality [place] -Slough/Fibrin Yes -Necrosis Amt Small (1-33%) Small (1-33%) -Necrotic Tissue Type Adherent Slough Adherent Slough -Structure Exposed N/A -Texture (Hannah-wound Skin Appearance) Assessed,Callus Callus -Moisture (Hannah-wound Skin Appearance) Maceration Maceration -Color (Hannah-wound Skin Appearance) Assessed No Abnormality -Temperature (Hannah-wound Skin No Abnormality No Abnormality Appearance) (Pt Warm) (Pt Warm) -Tenderness on Palpation (Hannah-wound No Skin Appearance) -Ulcer Cleansing Soap and Water Rinsed/ Irrigated with Saline -Foul Odor after Cleansing No No -Anesthetic Used 5% Lidocaine 5% Lidocaine Gel Gel Left Calf (cm) 47 50 Left Ankle (cm) 42 31.9 WC - Nurse 2 - General Ulcer CM Notes Start: 06/08/23 13:59 Freq: Status: Active Protocol: Activity Type Activity Date Activity User E-sign Co-sign Detail Recorded Client Recorded Date Recorded By Document 06/08/23 14:27 Ter[employer] Laptop 06/08/23 14:29 [employer] Document 06/22/23 14:25 [employer] Laptop 06/22/23 14:26 06/08/23 06/22/23 14:27 14:25 Wound Center Nurse 2 #4- L MED HEEL -Time 14:27 14:25 -Correct Patient Yes Yes -Correct Side, Site, Position Yes Yes -Correct Procedure Yes Yes -Procedure Performed Yes Yes -Type of Procedure Debridement Debridement -Clinical Debridement Subcutaneous Subcutaneous -Tissue Removed Subcutaneous Subcutaneous -Post Debridement (cm) - Length 1.2 2 -Post Debridement (cm) - Width 0.8 2.3 -Post Debridement (cm) - Depth 0.1 0.1 -Total Square (Post) (cm) 0.96 4.6 -Area of Debridement (cm) - Length 1.2 2.0 -Area of Debridement (cm) - Width 0.8 2.3 -Total Square (Area) (cm) 0.96 4.60 -Tunneling No No -Undermining/Tunneling No No -Circular Undermining No No -Wound/Ulcer Outcome Not Healed Not Healed -Ulcer Cleansing Rinsed/ Rinsed/ Irrigated with Irrigated with Saline Saline -Foul Odor after Cleansing No No -Bioengineered Tissue No No -Bleeding Controlled with Pressure Pressure,Silver Nitrate -Treatment Response Procedure Procedure Tolerated Well Tolerated Well -Offloading No No -Debridement - Subq, 1st 20sq cm Yes Yes Pain Scale: 0-10 Numeric Is Patient Pain Free? Yes Yes - Nurse 3 - General Ulcer D/C NN Start: 06/08/23 13:59 Freq: Status: Active Protocol: Activity Type Activity Date Activity User E-sign Co-sign Detail Recorded Client Recorded Date Recorded By Document 06/08/23 14:38 KW Desktop 06/08/23 14:39 KW Document 06/22/23 14:42 DL Desktop 06/22/23 14:43 DL 06/08/23 06/22/23 14:38 14:42 Wound Care Center Nurse 3 #4- L MED HEEL -Ulcer Cleansing Rinsed/ Rinsed/ Irrigated with Irrigated with Saline Saline -Foul Odor after Cleansing No -Primary Dressing Applied Promogran Catherine Matter -Other Dressing betadine -Primary Dressing Covered/Secured with Dry Gauze,Dry Dry Gauze & Gauze & Roll Roll Gauze, Gauze,Secured Secured with with Tape Tape -Other Covering circ aid -Promogran Catherine Matter 1 Treatment Response Procedure Tolerated Well Pain Scale: 0-10 Numeric Is Patient Pain Free? Yes Yes WC - Visit Discharge Discharge Condition Stable Stable Ambulatory Status Ambulatory, Ambulatory, Walker Walker Transportation Private Auto Private Auto Medication Reconcilliation completed & No provided to patient/care provider Clinical Summary of Care Provided Yes Assessment/Plan Assessment/Plan (1) Non-pressure chronic ulcer of other part of left foot with fat layer exposed: CODE(S): L97.522 - Non-pressure chronic ulcer of other part of left foot with fat layer exposed PLAN: Patient was examined and evaluated. All findings were discussed with the patient. All questions were answered to the patient's satisfaction. Excisional debridement down to including subcutaneous tissue with a number 5 mm dermal curette to the left heel full-thickness ulceration without incident. Predebridement measurement is 1.5 x 1.4 x 0.1 cm. Postdebridement measurement is 1.9 x 2.0 x 0.1 cm. Left lower extremity clean pat dry. The ulceration was dressed with Betadine dry sterile dressing and CircAid's to bilateral lower extremity. Review of the patient's culture shows evidence of Pseudomonas aeruginosa growth. There there is some resistance to Cipro. Educated the patient that I would like to put him on Bactrim DS per the [facility] but he does get shortness of breath. The patient will be placed on topical gentamicin 0.1% ointment to be applied to the wound as this is just a superficial infection with no evidence of deep infection. The patient's is understanding of this. There is also concern of deep vein thrombosis to the bilateral lower extremity secondary to increased size pain and swelling to the patient's legs. The patient will be sent over to the vascular lab for a stat 2 PM venous duplex. Follow-up at the wound care center with Dr. Spann in 1 week. (2) DVT (deep venous thrombosis): CODE(S): I82.409 - Acute embolism and thrombosis of unspecified deep veins of unspecified lower extremity (3) Lymphedema, not elsewhere classified: CODE(S): I89.0 - Lymphedema, not elsewhere classified (4) Cellulitis: QUALIFIERS: Site of cellulitis: extremity Site of cellulitis of extremity: lower extremity Laterality: left Qualified Code(s): L03.116 - Cellulitis of left lower limb
--- NOTE | 2023-06-29 13:49 | VDLE_ITS ---
Reason For Study: R/O DVT RIGHT LEFT GSV is normal. GSV is normal. CFV is compressible, spontaneous, phasic, CFV is compressible, spontaneous, phasic, competent and demonstrates normal competent, and demonstrates normal augmentation. augmentation. FV is compressible, spontaneous, phasic, FV is compressible, spontaneous, phasic, competent and demonstrates normal competent and demonstrates normal augmentation. augmentation. POP V is compressible, spontaneous, phasic, POP V is compressible, spontaneous, phasic, competent and demonstrates normal competent and demonstrates normal augmentation. augmentation. T/P Trunk is compressible. T/P Trunk is compressible. PTV is compressible. PTV is compressible. RT PerV is compressible. LT PerV is compressible. Procedure This is a venous duplex using B-mode, color flow and spectral Doppler. Exam performed in department. The study was technically difficult. A preliminary report was called and/or faxed to [facility] @ Bill Spann DPM @ 14: 50. VL/Venous Duplex US - Wander Extrem Interpretation Summary Deep veins of the lower extremities are bilaterally patent and compressible seg mentally. There is no evidence of deep vein thrombosis on either side. Valvular competence appears in tact within the proximal deep venous systems bilaterally. The great saphenous veins appear bila terally patent and compressible segmentally. Ordering Physician: Olaf Spann Referring Physician: Angelia Conway Performed By: Sherri Harden, RDCS, RVT
== END 2023-07-05 23:59 | disposition home or self-care (01) ==
LOC: WC 14:00
PROVIDERS: PCP Internal Medicine; Referring Provider Internal Medicine; Visit Provider Podiatrist Foot & Ankle Surgery
DX: E11.621 Type 2 diabetes mellitus with foot ulcer (principal); L97.422 Non-pressure chronic ulcer of left heel and midfoot with fat layer exposed; I48.91 Unspecified atrial fibrillation; E11.42 Type 2 diabetes mellitus with diabetic polyneuropathy; Z79.4 Long term (current) use of insulin; L03.116 Cellulitis of left lower limb; H54.8 Legal blindness, as defined in USA; I87.2 Venous insufficiency (chronic) (peripheral); I89.0 Lymphedema, not elsewhere classified; R60.0 Localized edema; I10 Essential (primary) hypertension; E78.5 Hyperlipidemia, unspecified; G47.00 Insomnia, unspecified; Z79.01 Long term (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 of anticoagulants; Z79.899 Other long term (current) drug therapy
CPT/HCPCS: 11042; 87070; 87075; 87077; 87101; 87186; 87205; 93970

== ENCOUNTER → 2023-07-14 | Outpatient (CLI) | payer MEDICARE, OTHER, SELFPAY ==
[2023-07-14 16:11] LABS: Absolute Lymphocyte Count 2.73 X10^3/uL (0.83-4.51); Absolute Neutrophil Count 4.6 X10^3/uL (2.0-7.7); Basophil# 0.07 X10^3/uL; Basophil% 0.8 % (0-1); Eosinophil# 0.54 X10^3/uL; Eosinophils% 6.2 % (0-5); Hematocrit 35.6 % (40-54); Hemoglobin 11.1 g/dL (13.0-16.5); Lymphocyte # 2.73 X10^3/ul (0.83-4.51); Lymphocyte % 31.5 % (19-41); Mean Corp Hgb Conc 31.2 g/dL (32-36); Mean Corpuscular Hgb 29.1 pg (27.0-32.0); Mean Corpuscular Volume 93.2 fL (80-94); Mean Platelet Vol. 12.3 fl (6.2-12.0); Monocyte# 0.68 X10^3/uL; Monocyte% 7.8 % (0-10); NRBC Flagged by Analyzer 0 % (0-5); Neutrophil # 4.62 X10^3/uL (2.7-7.7); Neutrophil % 53.4 % (47-70); Platelet Count 203 K/mm3 (150-450); RBC Distribution Width CV 13.2 % (11.6-14.6); RBC Distribution Width SD 45.1 fl (35.1-43.9); Red Blood Count 3.82 M/mm3 (4.6-6.2); White Blood Count 8.7 K/mm3 (4.4-11.0)
[2023-07-14 16:17] LABS: Color, Urine Yellow (Yellow); Glucose, Dipstick Normal (Normal); Ketone-Dipstick Negative (Negative); Leukocyte Esterase-Dipstick Negative /ul (Negative); Nitrite-Dipstick Negative (Negative); Occult Blood-Urine 25 /ul (Negative); Protein-Dipstick 100 mg/dl (Negative); Specific Gravity, Urine 1.015 (1.002-1.030); Urine Bilirubin Dipstick Negative (Negative); Urine Clarity Clear (Clear); Urine Urobilinogen Normal (Normal)
[2023-07-14 16:31] LABS: Vitamin B12 314 pg/mL (211-911)
[2023-07-14 16:55] LABS: AST(SGOT) 17 U/L (15-37); Alanine Aminotransfer ALT/SGPT 20 U/L (16-61); Albumin, Serum 3.1 g/dL (3.2-5.0); Alkaline Phosphatase 91 U/L (45-117); Anion Gap 2 (5-15); BUN 20 mg/dL (7-18); BUN/Creat Ratio 17.5 RATIO (10-20); Calcium,Total 9.2 mg/dL (8.5-10.1); Chloride 109 mmol/L (98-107); Cholesterol 111 mg/dL (200); Creatinine, Serum 1.14 mg/dL (0.70-1.30); EST Glomerular Filtration Rate 66 mL/min (>60); Est Glom Filt Rate - Afr Amer 80 mL/min (>60); Globulin 3.2 g/dL (2.2-4.2); Glucose 136 mg/dL (74-106); High Density Lipoprotein 58 mg/dL; Potassium 4.6 mmol/L (3.5-5.1); Protein, Total 6.3 g/dL (6.4-8.2); Sodium Level 140 mmol/L (136-145); Thyroid Stim Hormone (TSH) 1.94 uIU/mL (0.358-3.74); Triglycerides 53 mg/dL; Very Low Density Lipoprotein 11 mg/dL (5-40)
[2023-07-14 17:19] LABS: Microalbumin:Creatinine Ratio 1184.8 mg/g CRE (<30 mg/g CRE)
== END | disposition home or self-care (01) ==
LOC: MTLAB 11:26
PROVIDERS: PCP Internal Medicine; Referring Provider Internal Medicine; Visit Provider Internal Medicine
DX: E03.9 Hypothyroidism, unspecified (principal); E11.65 Type 2 diabetes mellitus with hyperglycemia; E78.00 Pure hypercholesterolemia, unspecified; D51.8 Other vitamin B12 deficiency anemias
CPT/HCPCS: 36415; 80053; 80061; 81002; 82043; 82570; 82607; 84443; 85025

== ENCOUNTER 2023-08-03 13:30 | Outpatient (RCR) | payer MEDICARE, OTHER, SELFPAY ==
[2023-07-06 11:24] VITALS: BP 142/77; PULSE 76; RESP 18; TEMP 36.4
--- NOTE | 2023-07-06 12:38 | PCM.WC.PN ---
History of Present Illness Date of Service: 07/06/23 Chief Complaint: Right foot ulcer History of Wound: This 76-year-old male with significant PMHx of diabetes type II with peripheral polyneuropathy, atrial fibrillation, hyperlipidemia, HTN, blindness, insomnia, history of acute renal failure, retinitis pigmentosa, Kaposi sarcoma right foot, and history of venous insufficiency with multiple procedural interventions was seen for right and left foot ulcer. Last seen by Dr. Moore, vascular specialist in 2020. Patient has not gone back for continued evaluation. Does have confirmed venous insufficiency of the great saphenous vein bilateral with bilateral lower extremity edema and lymphedema. He denies N/V/F/chills. He denies redness or odor to the foot bilateral. He is with his today. states that he had been following with Dr. Natalia Hernandez, NedP.Aura in office following dispense of Sigvaris compression wrap and bilateral AFO braces made by [employer]. states that these braces have caused rubbing on the inside of the heel of both feet that had formed a blister and eventually broke open into a wound. States that they have not healed in the last month and Dr. Hernandez referred them to the wound care center for further evaluation. Subjective Subjective Mr. Renae is a 77-year-old diabetic male presented wound care center today for follow-up evaluation of full-thickness ulceration to the medial aspect of the left heel. Patient has been ambulating with dorsiflexor assist braces and diabetic shoes. They have been doing gentamicin gel topically to the lateral aspect of the left heel and has noticed some improvement. Patient is still taking Cipro until gone. Review of the patient's culture shows evidence of resistance to Cipro but we will have the patient finish the antibiotic and will continue topical antibiotic gel to the area. Patient's blood sugar has been well-controlled. Patient's venous duplex showed negative DVT bilaterally. He continues to wear his CircAid wraps. Denies trauma. Denies constitutional symptoms. No other pedal complaints at this time. Objective Data Objective Data Vital Signs: Vital Signs Temp Pulse Resp BP O2 Del Method 97.5 F L 76 18 142/77 H Room Air 07/06/23 11:24 07/06/23 11:24 07/06/23 11:24 07/06/23 11:24 07/06/23 11:24 Oxygen Delivery Method Room Air Physical Exam Narrative Vascular: DP and PT pulses are palpable. CFT is brisk. +1 pitting edema appreciated to bilateral lower extremity. Evidence of blanchable erythema appreciated to the bilateral legs. Neurological: Light touch intact. Protective sensation is absent. Patient does not respond to painful stimuli. Dermatological: Full-thickness ulceration left medial heel ulceration measures 3.0 x 2.2 x 0.1 cm. Wound base to the right heel is under granular nature, with evidence of green periwound, improved. Evidence of hyperkeratotic tissue appreciated to the periwound of the right medial heel. Excisional debridement down to including subcutaneous tissue with a number 5 mm dermal curette to the left heel full-thickness ulceration without incident. Predebridement measurement is 0.4 x 0.1 x 0.1 cm. Postdebridement measurement is 3.0 x 2.2 x 0.1 cm. Musculoskeletal: No pain on palpation to the full-thickness ulceration. Pain with calf compression. Debridement Note Debridement Note Debridement Free Text: Excisional debridement down to including subcutaneous tissue with a number 5 mm dermal curette to the left heel full-thickness ulceration without incident. Predebridement measurement is 0.4 x 0.1 x 0.1 cm. Postdebridement measurement is 3.0 x 2.2 x 0.1 cm. Post-Debridement Measurements and Additional Note: Post-Debridement Measurements/Treatment - Nurse 1 - General Ulcer Assessment Start: 07/06/23 11:24 Freq: Status: Active Protocol: JORGE Activity Type Activity Date Activity User E-sign Co-sign Detail Recorded Client Recorded Date Recorded By Document 07/06/23 11:24 KW Desktop 07/06/23 11:29 KW Document 07/06/23 11:46 KW Desktop 07/06/23 11:49 KW Undo 07/06/23 11:46 KW WRONG PT Desktop 07/06/23 11:55 KW 07/06/23 11:24 - Today's Visit Information Type of service Follow-up Visit (Physician/MAINTENANCE CUSTODIAN ) Arrival Mode Ambulatory, Wheelchair Accompanied by Patient Identification Verified (Name & Yes ) Vital Signs Temperature (97.8 F-99.1 F) 97.5 F L Temperature Source Temporal Pulse Rate (60-100) 76 Pulse Location Monitor Respiratory Rate (12-18) 18 Respiratory rate source Observation Oxygen Delivery Method Room Air Blood Pressure (90/60-120/80) 142/77 H Blood Pressure Mean (mm Hg) 98 Source Monitor Position Semi-Fowlers Blood Pressure Location Left Arm History Since Last Visit- (Skip if this is Patient's initial visit) Have you changed medications since your No last visit? Any new allergies or adverse reactions No Had a fall/change in ADL's that may No increase risk of falls Signs or symptoms of abuse and/or No neglect since last visit Have you been in the hospital since your No last visit? Has dressing in place as prescribed Yes Has compression in place as prescribed Yes Has offloadiing in place as prescribed N/A Experienced any changes in pain level or No management Left Footwear Regular Shoe Right Footwear Regular Shoe Pain Scale: 0-10 Numeric Is Patient Pain Free? Yes WC - Nurse 1 - General Ulcer Measurement Start: 07/06/23 11:24 Freq: Status: Active Protocol: Activity Type Activity Date Activity User E-sign Co-sign Detail Recorded Client Recorded Date Recorded By Document 07/06/23 11:24 KW Desktop 07/06/23 11:29 KW Document 07/06/23 11:46 KW Desktop 07/06/23 11:49 KW Undo 07/06/23 11:46 KW WROONG PT Desktop 07/06/23 11:56 KW 07/06/23 11:24 Wound Center Nurse 1 #4- L MED HEEL -Current Size (cm) - Length 0.4 -Current Size (cm) - Width 0.1 -Current Size (cm) - Depth 0.1 -Total Square Cm 0.04 -Exudate Amt Medium -Exudate Type Serosanguineous -Wound Margin Distinct, Outline Attached -Granulation Amt Large (67-100%) -Granulation Quality [place] -Necrosis Amt Small (1-33%) -Necrotic Tissue Type Adherent Slough -Texture (Hannah-wound Skin Appearance) Callus -Moisture (Hannah-wound Skin Appearance) Maceration -Color (Hannah-wound Skin Appearance) Assessed -Temperature (Hannah-wound Skin No Abnormality Appearance) (Pt Warm) -Tenderness on Palpation (Hannah-wound No Skin Appearance) -Ulcer Cleansing Rinsed/ Irrigated with Saline -Foul Odor after Cleansing No -Anesthetic Used 5% Lidocaine Gel Left Calf (cm) 49 Left Ankle (cm) 31.7 WC - Nurse 2 - General Ulcer CM Notes Start: 07/06/23 11:24 Freq: Status: Active Protocol: Activity Type Activity Date Activity User E-sign Co-sign Detail Recorded Client Recorded Date Recorded By Document 07/06/23 11:34 Laptop 07/06/23 11:39 07/06/23 11:34 Wound Center Nurse 2 #4- L MED HEEL -Time 11:34 -Correct Patient Yes -Correct Side, Site, Position Yes -Correct Procedure Yes -Procedure Performed Yes -Type of Procedure Debridement -Clinical Debridement Subcutaneous -Tissue Removed Subcutaneous -Post Debridement (cm) - Length 3.0 -Post Debridement (cm) - Width 2.2 -Post Debridement (cm) - Depth 0.1 -Total Square (Post) (cm) 6.60 -Area of Debridement (cm) - Length 3.0 -Area of Debridement (cm) - Width 2.2 -Total Square (Area) (cm) 6.60 -Tunneling No -Undermining/Tunneling No -Circular Undermining No -Wound/Ulcer Outcome Not Healed -Ulcer Cleansing Rinsed/ Irrigated with Saline -Foul Odor after Cleansing No -Bioengineered Tissue No -Bleeding Controlled with Pressure,Silver Nitrate -Treatment Response Procedure Tolerated Well -Offloading No -Debridement - Subq, 1st 20sq cm Yes Pain Scale: 0-10 Numeric Is Patient Pain Free? Yes - Nurse 3 - General Ulcer D/C NN Start: 07/06/23 11:24 Freq: Status: Active Protocol: Activity Type Activity Date Activity User E-sign Co-sign Detail Recorded Client Recorded Date Recorded By Document 07/06/23 11:52 KW Desktop 07/06/23 11:54 KW 07/06/23 11:52 Wound Care Center Nurse 3 #5- R MEDIAL HEEL -Other Dressing ATB OINTMENT -Primary Dressing Covered/Secured with Dry Gauze & Roll Gauze, Secured with Tape #4- L MED HEEL -Other Dressing ATB OINTMENT -Primary Dressing Covered/Secured with Dry Gauze & Roll Gauze, Secured with Tape Pain Scale: 0-10 Numeric Is Patient Pain Free? Yes - Visit Discharge Discharge Condition Stable Ambulatory Status Ambulatory, Walker Transportation Private Auto Medication Reconcilliation completed & No provided to patient/care provider Clinical Summary of Care Provided Yes Notes: PT WEARS BRACE AND CIRCAIDS Assessment/Plan Assessment/Plan (1) Non-pressure chronic ulcer of other part of left foot with fat layer exposed: CODE(S): L97.522 - Non-pressure chronic ulcer of other part of left foot with fat layer exposed PLAN: Patient was examined and evaluated. All findings were discussed with the patient. All questions were answered to the patient's satisfaction. Excisional debridement down to including subcutaneous tissue with a number 5 mm dermal curette to the left heel full-thickness ulceration without incident. Predebridement measurement is 0.4 x 0.1 x 0.1 cm. Postdebridement measurement is 3.0 x 2.2 x 0.1 cm. Left heel ulcer clean and patted dry. Triple-lumen antibiotic was applied followed by dry sterile dressing and compression wrap. Patient will do daily dressing changes with gentamicin ointment and will continue and finish his ciprofloxacin antibiotic. Educated patient on strict blood sugar control. If the patient does show evidence of delayed healing the patient will be placed on oral antibiotics after recommendation from infectious disease. Follow-up at the wound care center with Dr. Spann in 1 week. (2) Peripheral vascular disease: CODE(S): I73.9 - Peripheral vascular disease, unspecified (3) Lymphedema, not elsewhere classified: CODE(S): I89.0 - Lymphedema, not elsewhere classified
[2023-07-13 11:05] VITALS: BP 146/81; PULSE 63; RESP 18; TEMP 36.8
--- NOTE | 2023-07-13 11:48 | PCM.WC.PN ---
History of Present Illness Date of Service: 07/13/23 Chief Complaint: Right foot ulcer History of Wound: This 76-year-old male with significant PMHx of diabetes type II with peripheral polyneuropathy, atrial fibrillation, hyperlipidemia, HTN, blindness, insomnia, history of acute renal failure, retinitis pigmentosa, Kaposi sarcoma right foot, and history of venous insufficiency with multiple procedural interventions was seen for right and left foot ulcer. Last seen by Dr. Moore, vascular specialist in 2020. Patient has not gone back for continued evaluation. Does have confirmed venous insufficiency of the great saphenous vein bilateral with bilateral lower extremity edema and lymphedema. He denies N/V/F/chills. He denies redness or odor to the foot bilateral. He is with his today. states that he had been following with Dr. Natalia Hernandez, [facility] in office following dispense of Sigvaris compression wrap and bilateral AFO braces made by [employer]. states that these braces have caused rubbing on the inside of the heel of both feet that had formed a blister and eventually broke open into a wound. States that they have not healed in the last month and Dr. Hernandez referred them to the wound care center for further evaluation. Subjective Subjective Mr. Renae is a 77-year-old diabetic male presenting to wound care center today for follow-up evaluation of full-thickness wound to the left medial aspect of the heel. Patient has been doing home dressing changes with gentamicin gel topically and has finished his oral antibiotics. Patient admits to improved wound healing. He has turned down to the compression pressure of his mechanical pumps and we will begin pumping today. Denies trauma. Denies constitutional symptoms. No other pedal complaints at this time. Objective Data Objective Data Vital Signs: Vital Signs Temp Pulse Resp BP O2 Del Method 98.2 F 63 18 146/81 H Room Air 07/13/23 11:05 07/13/23 11:05 07/13/23 11:05 07/13/23 11:07/13/23 11:05 Oxygen Delivery Method Room Air Physical Exam Narrative Vascular: DP and PT pulses are palpable. CFT is brisk. +1 pitting edema appreciated to bilateral lower extremity. Evidence of blanchable erythema appreciated to the bilateral legs. Neurological: Light touch intact. Protective sensation is absent. Patient does not respond to painful stimuli. Dermatological: Full-thickness ulceration left medial heel ulceration measures 3.0 x 2.2 x 0.1 cm. Wound base to the right heel is under granular nature, with evidence of green periwound, improved. Evidence of hyperkeratotic tissue appreciated to the periwound of the right medial heel. Selective debridement down to including subcutaneous tissue with a number 5 mm dermal curette to the left heel full-thickness ulceration without incident. Predebridement measurement is callus. Postdebridement measurement is 0.1 x 0.1 x 0.1 cm. Musculoskeletal: No pain on palpation to the full-thickness ulceration. Pain with calf compression. Debridement Note Debridement Note Debridement Free Text: Selective debridement down to including subcutaneous tissue with a number 5 mm dermal curette to the left heel full-thickness ulceration without incident. Predebridement measurement is callus. Postdebridement measurement is 0.1 x 0.1 x 0.1 cm. Post-Debridement Measurements and Additional Note: Post-Debridement Measurements/Treatment - Nurse 1 - General Ulcer Assessment Start: 07/06/23 11:24 Freq: Status: Active Protocol: [email or web address] Activity Type Activity Date Activity User E-sign Co-sign Detail Recorded Client Recorded Date Recorded By Document 07/06/23 11:24 KW Desktop 07/06/23 11:29 KW Document 07/06/23 11:46 KW Desktop 07/06/23 11:49 KW Undo 07/06/23 11:46 KW WRONG PT Desktop 07/06/23 11:55 KW Document 07/13/23 11:05 KW Desktop 07/13/23 11:13 KW 07/06/23 07/13/23 11:24 11:05 - Today's Visit Information Type of service Follow-up Visit Follow-up Visit (Physician/RESIDENTIAL ADVISOR (Physician/RESIDENTIAL ADVISOR ) ) Arrival Mode Ambulatory, Ambulatory, Wheelchair Walker Accompanied by Patient Identification Verified (Name & Yes ) Vital Signs Temperature (97.8 F-99.1 F) 97.5 F L 98.2 F Temperature Source Temporal Temporal Pulse Rate (60-100) 76 63 Pulse Location Monitor Monitor Respiratory Rate (12-18) 18 18 Respiratory rate source Observation Observation Oxygen Delivery Method Room Air Room Air Blood Pressure (90/60-120/80) 142/77 H 146/81 H Blood Pressure Mean (mm Hg) 98 102 Source Monitor Monitor Position Semi-Fowlers Semi-Fowlers Blood Pressure Location Left Arm Right Arm History Since Last Visit- (Skip if this is Patient's initial visit) Have you changed medications since your No No last visit? Any new allergies or adverse reactions No No Had a fall/change in ADL's that may No No increase risk of falls Signs or symptoms of abuse and/or No No neglect since last visit Have you been in the hospital since your No No last visit? Has dressing in place as prescribed Yes Yes Has compression in place as prescribed Yes Yes Has offloadiing in place as prescribed N/A N/A Experienced any changes in pain level or No No management Left Footwear Regular Shoe Regular Shoe Right Footwear Regular Shoe Regular Shoe Pain Scale: 0-10 Numeric Is Patient Pain Free? Yes Yes WC - Nurse 1 - General Ulcer Measurement Start: 07/06/23 11:24 Freq: Status: Active Protocol: Activity Type Activity Date Activity User E-sign Co-sign Detail Recorded Client Recorded Date Recorded By Document 07/06/23 11:24 KW Desktop 07/06/23 11:29 KW Document 07/06/23 11:46 KW Desktop 07/06/23 11:49 KW Undo 07/06/23 11:46 KW WROONG PT Desktop 07/06/23 11:56 KW Document 07/13/23 11:05 KW Desktop 07/13/23 11:13 KW 07/06/23 07/13/23 11:24 11:05 Wound Center Nurse 1 #4- L MED HEEL -Current Size (cm) - Length 0.4 1.8 -Current Size (cm) - Width 0.1 2.4 -Current Size (cm) - Depth 0.1 0.1 -Total Square Cm 0.04 4.32 -Exudate Amt Medium Small -Exudate Type Serosanguineous Serosanguineous -Wound Margin Distinct, Indistinct, Non Outline -Visible Attached -Granulation Amt Large (67-100%) -Granulation Quality [place] -Necrosis Amt Small (1-33%) Small (1-33%) -Necrotic Tissue Type Adherent Slough Adherent Slough -Texture (Hannah-wound Skin Appearance) Callus Assessed -Moisture (Hannah-wound Skin Appearance) Maceration Maceration -Color (Hannah-wound Skin Appearance) Assessed Assessed -Temperature (Hannah-wound Skin No Abnormality No Abnormality Appearance) (Pt Warm) (Pt Warm) -Tenderness on Palpation (Hannah-wound No No Skin Appearance) -Ulcer Cleansing Rinsed/ Rinsed/ Irrigated with Irrigated with Saline Saline -Foul Odor after Cleansing No No -Anesthetic Used 5% Lidocaine 5% Lidocaine Gel Gel Left Calf (cm) 49 46.3 Left Ankle (cm) 31.7 31.2 - Nurse 2 - General Ulcer CM Notes Start: 07/06/23 11:24 Freq: Status: Active Protocol: Activity Type Activity Date Activity User E-sign Co-sign Detail Recorded Client Recorded Date Recorded By Document 07/06/23 11:34 Laptop 07/06/23 11:39 JF Document 07/13/23 11:17 DS Desktop 07/13/23 11:22 DS 07/06/23 07/13/23 11:34 11:17 Wound Center Nurse 2 #4- L MED HEEL -Time 11:34 11:17 -Correct Patient Yes Yes -Correct Side, Site, Position Yes Yes -Correct Procedure Yes Yes -Procedure Performed Yes Yes -Type of Procedure Debridement Debridement -Clinical Debridement Subcutaneous Epidermis / Dermis -Tissue Removed Subcutaneous Epidermis, Dermis -Post Debridement (cm) - Length 3.0 0.1 -Post Debridement (cm) - Width 2.2 0.1 -Post Debridement (cm) - Depth 0.1 0.1 -Total Square (Post) (cm) 6.60 0.01 -Area of Debridement (cm) - Length 3.0 0.1 -Area of Debridement (cm) - Width 2.2 0.1 -Total Square (Area) (cm) 6.60 0.01 -Tunneling No No -Undermining/Tunneling No No -Circular Undermining No No -Wound/Ulcer Outcome Not Healed Not Healed -Ulcer Cleansing Rinsed/ Irrigated with Saline -Foul Odor after Cleansing No -Bioengineered Tissue No -Bleeding Controlled with Pressure,Silver Pressure Nitrate -Treatment Response Procedure Procedure Tolerated Well Tolerated Well -Offloading No No -Debridement - Open, 1st 20sq cm Yes -Debridement - Subq, 1st 20sq cm Yes Pain Scale: 0-10 Numeric Is Patient Pain Free? Yes Yes - Nurse 3 - General Ulcer D/C NN Start: 07/06/23 11:24 Freq: Status: Active Protocol: Activity Type Activity Date Activity User E-sign Co-sign Detail Recorded Client Recorded Date Recorded By Document 07/06/23 11:52 KW Desktop 07/06/23 11:54 KW 07/06/23 11:52 Wound Care Center Nurse 3 #5- R MEDIAL HEEL -Other Dressing ATB OINTMENT -Primary Dressing Covered/Secured with Dry Gauze & Roll Gauze, Secured with Tape #4- L MED HEEL -Other Dressing ATB OINTMENT -Primary Dressing Covered/Secured with Dry Gauze & Roll Gauze, Secured with Tape Pain Scale: 0-10 Numeric Is Patient Pain Free? Yes WC - Visit Discharge Discharge Condition Stable Ambulatory Status Ambulatory, Walker Transportation Private Auto Medication Reconcilliation completed & No provided to patient/care provider Clinical Summary of Care Provided Yes Notes: PT WEARS BRACE AND CIRCAIDS Assessment/Plan Assessment/Plan (1) Non-pressure chronic ulcer of other part of left foot with fat layer exposed: CODE(S): L97.522 - Non-pressure chronic ulcer of other part of left foot with fat layer exposed PLAN: Patient was examined and evaluated. All findings were discussed with the patient. All questions were answered to the patient's satisfaction. Selective debridement down to including subcutaneous tissue with a number 5 mm dermal curette to the left heel full-thickness ulceration without incident. Predebridement measurement is callus. Postdebridement measurement is 0.1 x 0.1 x 0.1 cm. Patient will continue topical gentamicin gel dry sterile dressing and compression wraps to the left heel. Patient will begin to use his mechanical pumps to the new lower pressure. It was educated patient that there is any issues with the pumps he is to stop using them and continue his regular compression. Patient and his are understanding of this. Follow-up at the wound care center with Dr. Spann in 1 week. (2) Lymphedema, not elsewhere classified: CODE(S): I89.0 - Lymphedema, not elsewhere classified
[2023-07-20 11:40] VITALS: BP 157/89; PULSE 82; RESP 18; TEMP 36.8
--- NOTE | 2023-07-20 12:19 | PCM.WC.PN ---
History of Present Illness Date of Service: 07/20/23 Chief Complaint: Right foot ulcer History of Wound: This 76-year-old male with significant PMHx of diabetes type II with peripheral polyneuropathy, atrial fibrillation, hyperlipidemia, HTN, blindness, insomnia, history of acute renal failure, retinitis pigmentosa, Kaposi sarcoma right foot, and history of venous insufficiency with multiple procedural interventions was seen for right and left foot ulcer. Last seen by Dr. Moore, vascular specialist in 2020. Patient has not gone back for continued evaluation. Does have confirmed venous insufficiency of the great saphenous vein bilateral with bilateral lower extremity edema and lymphedema. He denies N/V/F/chills. He denies redness or odor to the foot bilateral. He is with his today. states that he had been following with Dr. Natalia Hernandez, [facility] in office following dispense of Sigvaris compression wrap and bilateral AFO braces made by [employer]. states that these braces have caused rubbing on the inside of the heel of both feet that had formed a blister and eventually broke open into a wound. States that they have not healed in the last month and Dr. Hernandez referred them to the wound care center for further evaluation. Subjective Subjective Mr. Renae is a 77-year-old diabetic male presenting to wound care center today for follow-up evaluation of full-thickness wound to the left medial aspect of the heel. Patient has been doing home dressing changes with gentamicin gel topically and has finished his oral antibiotics. Patient admits to improved wound healing. He has turned down to the compression pressure of his mechanical pumps and we will begin pumping today. Denies trauma. Denies constitutional symptoms. No other pedal complaints at this time. Objective Data Objective Data Vital Signs: Vital Signs Temp Pulse Resp BP O2 Del Method 98.3 F 82 18 157/89 H Room Air 07/20/23 11:40 07/20/23 11:40 07/20/23 11:40 07/20/23 11:40 07/20/23 11:40 Oxygen Delivery Method Room Air Physical Exam Narrative Vascular: DP and PT pulses are palpable. CFT is brisk. +1 pitting edema appreciated to bilateral lower extremity. Evidence of blanchable erythema appreciated to the bilateral legs. Neurological: Light touch intact. Protective sensation is absent. Patient does not respond to painful stimuli. Dermatological: Full-thickness ulceration left medial heel ulceration measures 1.3 x 1.6 x 0.1 cm. Wound base to the right heel is under granular is nature. Excisional debridement down to including subcutaneous tissue with a number 5 mm dermal curette to the left heel full-thickness ulceration without incident. Predebridement measurement is 0.4 x 0.2 x 0.2 cm. Postdebridement measurement is 1.3 x 1.6 x 0.2 cm. Musculoskeletal: No pain on palpation to the full-thickness ulceration. No pain with calf compression. Debridement Note Debridement Note Debridement Free Text: Excisional debridement down to including subcutaneous tissue with a number 5 mm dermal curette to the left heel full-thickness ulceration without incident. Predebridement measurement is 0.4 x 0.2 x 0.2 cm. Postdebridement measurement is 1.3 x 1.6 x 0.2 cm. Post-Debridement Measurements and Additional Note: Post-Debridement Measurements/Treatment - Nurse 1 - General Ulcer Assessment Start: 07/06/23 11:24 Freq: Status: Active Protocol: [email or web address] Activity Type Activity Date Activity User E-sign Co-sign Detail Recorded Client Recorded Date Recorded By Document 07/06/23 11:24 KW Desktop 07/06/23 11:29 KW Document 07/06/23 11:46 KW Desktop 07/06/23 11:49 KW Undo 07/06/23 11:46 KW WRONG PT Desktop 07/06/23 11:55 KW Document 07/13/23 11:05 KW Desktop 07/13/23 11:13 KW Document 07/20/23 11:40 [place] [id number] 07/20/23 11:43 DS 07/06/23 07/13/23 07/20/23 11:24 11:05 11:40 - Today's Visit Information Type of service Follow-up Visit Follow-up Visit Follow-up Visit (Physician/DIRECTOR PHONE (Physician/DIRECTOR PHONE (Physician/DIRECTOR PHONE ) ) ) Arrival Mode Ambulatory, Ambulatory, Ambulatory, Wheelchair Walker Walker Accompanied by Patient Identification Verified (Name & Yes ) Vital Signs Temperature (97.8 F-99.1 F) 97.5 F L 98.2 F 98.3 F Temperature Source Temporal Temporal Temporal Pulse Rate (60-100) 76 63 82 Pulse Location Monitor Monitor Monitor Respiratory Rate (12-18) 18 18 18 Respiratory rate source Observation Observation Observation Oxygen Delivery Method Room Air Room Air Room Air Blood Pressure (90/60-120/80) 142/77 H 146/81 H 157/89 H Blood Pressure Mean (mm Hg) 98 102 111 Source Monitor Monitor Monitor Position Semi-Fowlers Semi-Fowlers Semi-Fowlers Blood Pressure Location Left Arm Right Arm Right Arm History Since Last Visit- (Skip if this is Patient's initial visit) Have you changed medications since your No No Yes last visit? Any new allergies or adverse reactions No No No Had a fall/change in ADL's that may No No No increase risk of falls Signs or symptoms of abuse and/or No No No neglect since last visit Have you been in the hospital since your No No No last visit? Has dressing in place as prescribed Yes Yes Yes Has compression in place as prescribed Yes Yes Yes Has offloadiing in place as prescribed N/A N/A No Experienced any changes in pain level or No No No management Left Footwear Regular Shoe Regular Shoe Regular Shoe Right Footwear Regular Shoe Regular Shoe Other Footwear (Comment) Other Footwear brace left foot Pain Scale: 0-10 Numeric Is Patient Pain Free? Yes Yes Yes WC - Nurse 1 - General Ulcer Measurement Start: 07/06/23 11:24 Freq: Status: Active Protocol: Activity Type Activity Date Activity User E-sign Co-sign Detail Recorded Client Recorded Date Recorded By Document 07/06/23 11:24 KW Desktop 07/06/23 11:29 KW Document 07/06/23 11:46 KW Desktop 07/06/23 11:49 KW Undo 07/06/23 11:46 KW WROONG PT Desktop 07/06/23 11:56 KW Document 07/13/23 11:05 KW Desktop 07/13/23 11:13 KW Document 07/20/23 11:40 [place] [id number] 07/20/23 11:43 DS 07/06/23 07/13/23 07/20/23 11:24 11:05 11:40 Wound Center Nurse 1 #4- L MED HEEL -Current Size (cm) - Length 0.4 1.8 0.4 -Current Size (cm) - Width 0.1 2.4 0.2 -Current Size (cm) - Depth 0.1 0.1 0.2 -Total Square Cm 0.04 4.32 0.08 -Photo Taken No -Tunneling No -Undermining/Tunneling No -Circular Undermining No -Exudate Amt Medium Small -Exudate Type Serosanguineous Serosanguineous -Wound Margin Distinct, Indistinct, Non Distinct, Outline -Visible Outline Attached Attached -Granulation Amt Large (67-100%) Medium (34-66%) -Granulation Quality [place] -Slough/Fibrin Yes -Necrosis Amt Small (1-33%) Small (1-33%) Medium (34-66%) -Necrotic Tissue Type Adherent Slough Adherent Slough Adherent Slough -Texture (Hannah-wound Skin Appearance) Callus Assessed Assessed -Moisture (Hannah-wound Skin Appearance) Maceration Maceration Assessed, Maceration -Color (Hannah-wound Skin Appearance) Assessed Assessed Assessed -Temperature (Hannah-wound Skin No Abnormality No Abnormality Appearance) (Pt Warm) (Pt Warm) -Tenderness on Palpation (Hannah-wound No No Skin Appearance) -Ulcer Cleansing Rinsed/ Rinsed/ Irrigated with Irrigated with Saline Saline -Foul Odor after Cleansing No No -Anesthetic Used 5% Lidocaine 5% Lidocaine Gel Gel Left Calf (cm) 49 46.3 50 Left Ankle (cm) 31.7 31.2 31.5 WC - Nurse 2 - General Ulcer CM Notes Start: 07/06/23 11:24 Freq: Status: Active Protocol: Activity Type Activity Date Activity User E-sign Co-sign Detail Recorded Client Recorded Date Recorded By Document 07/06/23 11:34 Laptop 07/06/23 11:39 JF Document 07/13/23 11:17 DS Desktop 07/13/23 11:22 DS Document 07/20/23 11:48 [place] [id number] 07/20/23 11:52 DS 07/06/23 07/13/23 07/20/23 11:34 11:17 11:48 Wound Center Nurse 2 #4- L MED HEEL -Time 11:34 11:17 11:48 -Correct Patient Yes Yes Yes -Correct Side, Site, Position Yes Yes Yes -Correct Procedure Yes Yes Yes -Procedure Performed Yes Yes Yes -Type of Procedure Debridement Debridement Debridement -Clinical Debridement Subcutaneous Epidermis / Subcutaneous Dermis -Tissue Removed Subcutaneous Epidermis, Subcutaneous Dermis -Post Debridement (cm) - Length 3.0 0.1 1.3 -Post Debridement (cm) - Width 2.2 0.1 1.6 -Post Debridement (cm) - Depth 0.1 0.1 0.1 -Total Square (Post) (cm) 6.60 0.01 2.08 -Area of Debridement (cm) - Length 3.0 0.1 1.3 -Area of Debridement (cm) - Width 2.2 0.1 1.6 -Total Square (Area) (cm) 6.60 0.01 2.08 -Tunneling No No No -Undermining/Tunneling No No No -Circular Undermining No No No -Wound/Ulcer Outcome Not Healed Not Healed Not Healed -Ulcer Cleansing Rinsed/ Rinsed/ Irrigated with Irrigated with Saline Saline -Foul Odor after Cleansing No -Bioengineered Tissue No -Bleeding Controlled with Pressure,Silver Pressure Pressure Nitrate -Treatment Response Procedure Procedure Procedure Tolerated Well Tolerated Well Tolerated Well -Offloading No No -Assistive Device(s) Walker -Debridement - Open, 1st 20sq cm Yes -Debridement - Subq, 1st 20sq cm Yes Yes Pain Scale: 0-10 Numeric Is Patient Pain Free? Yes Yes Yes WC - Nurse 3 - General Ulcer D/C NN Start: 07/06/23 11:24 Freq: Status: Active Protocol: Activity Type Activity Date Activity User E-sign Co-sign Detail Recorded Client Recorded Date Recorded By Document 07/06/23 11:52 KW Desktop 07/06/23 11:54 KW Document 07/20/23 12:04 [id number] 07/20/23 12:05 07/06/23 07/20/23 11:52 12:04 Wound Care Center Nurse 3 #5- R MEDIAL HEEL -Other Dressing ATB OINTMENT -Primary Dressing Covered/Secured with Dry Gauze & Roll Gauze, Secured with Tape #4- L MED HEEL -Ulcer Cleansing Not Cleansed -Foul Odor after Cleansing No -Other Dressing ATB OINTMENT -Primary Dressing Covered/Secured with Dry Gauze & Dry Gauze,Dry Roll Gauze, Gauze & Roll Secured with Gauze,Secured Tape with Tape Left -Lotion applied to leg before No compression wrap -Tubular Bandage Single Layer -Size of Tubigrip Used Size F -Size F ($) 1 Pain Scale: 0-10 Numeric Is Patient Pain Free? Yes Yes WC - Visit Discharge Discharge Condition Stable Stable Ambulatory Status Ambulatory, Ambulatory, Walker Walker Transportation Private Auto Private Auto Medication Reconcilliation completed & No provided to patient/care provider Clinical Summary of Care Provided Yes Yes Notes: PT WEARS BRACE AND CIRCAIDS Assessment/Plan Assessment/Plan (1) Non-pressure chronic ulcer of other part of left foot with fat layer exposed: CODE(S): L97.522 - Non-pressure chronic ulcer of other part of left foot with fat layer exposed PLAN: Patient was examined and evaluated. All findings were discussed with the patient. All questions were answered to the patient's satisfaction. Excisional debridement down to including subcutaneous tissue with a number 5 mm dermal curette to the left heel full-thickness ulceration without incident. Predebridement measurement is 0.4 x 0.2 x 0.2 cm. Postdebridement measurement is 1.3 x 1.6 x 0.1 cm. Left lower extremities were cleaned and patted dry. The area was dressed with [place] dry sterile dressing and compression wrap. Patient will continue regular dressing changes with gentamicin gel at home. Patient will continue to use lymphedema pumps as discussed. After reviewing the patient's Ede brace left lower extremity there shows evidence as well as concern for rubbing in the brace as his wound is chronic in nature and shows evidence of hyperkeratotic tissue with every debridement. I personally modified a horseshoe offloading pad to be applied to the area of increased pressure to see if this will cause a decrease in healing of the patient's wound. The patient will follow-up in 1 week for evaluation if there shows evidence of great improvement I will recommend the patient return to [facility] for aggressive adjustment of the brace to offload the medial aspect of the heel of the left lower extremity. Follow-up at the wound care center with Dr. Spann in 1 week. (2) Lymphedema, not elsewhere classified: CODE(S): I89.0 - Lymphedema, not elsewhere classified
[2023-07-27 11:36] VITALS: BP 146/75; PULSE 63; RESP 18; TEMP 35.8
--- NOTE | 2023-07-27 14:14 | PN.PCM_ITS ---
History of Present Illness Date of Service: 07/27/23 Chief Complaint: Right foot ulcer History of Wound: This 76-year-old male with significant PMHx of diabetes type II with peripheral polyneuropathy, atrial fibrillation, hyperlipidemia, HTN, blindness, insomnia, history of acute renal failure, retinitis pigmentosa, Kaposi sarcoma right foot, and history of venous insufficiency with multiple procedural interventions was seen for right and left foot ulcer. Last seen by Dr. Moore, vascular specialist in 2020. Patient has not gone back for continued evaluation. Does have confirmed venous insufficiency of the great saphenous vein bilateral with bilateral lower extremity edema and lymphedema. He denies N/V/F/chills. He denies redness or odor to the foot bilateral. He is with his today. states that he had been following with Dr. Natalia Hernandez, [facility] in office following dispense of Sigvaris compression wrap and bilateral AFO braces made by [facility]. states that these braces have caused rubbing on the inside of the heel of both feet that had formed a blister and eventually broke open into a wound. States that they have not healed in the last month and Dr. Hernandez referred them to the wound care center for further evaluation. Subjective Subjective Mr. Renae is a 77-year-old diabetic male presenting to wound care center today for follow-up evaluation of full-thickness wound to the left medial aspect of the heel. Patient has been doing home dressing changes with gentamicin gel topically and has finished his oral antibiotics. Patient admits to improved wound healing. He has turned down to the compression pressure of his mechanical pumps and we will begin pumping today. Denies trauma. Denies constitutional symptoms. No other pedal complaints at this time. Objective Data Objective Data Vital Signs: Vital Signs Temp Pulse Resp BP O2 Del Method 96.5 F L 63 18 146/75 H Room Air 07/27/23 11:36 07/27/23 11:36 07/27/23 11:36 07/27/23 11:36 07/27/23 11:36 Oxygen Delivery Method Room Air Physical Exam Narrative Vascular: DP and PT pulses are palpable. CFT is brisk. +1 pitting edema appreciated to bilateral lower extremity. Evidence of blanchable erythema appreciated to the bilateral legs. Neurological: Light touch intact. Protective sensation is absent. Patient does not respond to painful stimuli. Dermatological: Full-thickness ulceration left medial heel ulceration measures 0.6 x 0.6 x 0.1 cm. Wound base to the right heel is under granular is nature. Evidence of hyperkeratotic periwound. Excisional debridement down to including subcutaneous tissue with a number 5 mm dermal curette to the left heel full-thickness ulceration without incident. Predebridement measurement is 0.5 x 0.5 x 0.1 cm. Postdebridement measurement is 0.6 x 0.6 x 0.1 cm. Musculoskeletal: No pain on palpation to the full-thickness ulceration. No pain with calf compression. Debridement Note Debridement Note Debridement Free Text: Excisional debridement down to including subcutaneous tissue with a number 5 mm dermal curette to the left heel full-thickness ulceration without incident. Predebridement measurement is 0.5 x 0.5 x 0.1 cm. Postdebridement measurement is 0.6 x 0.6 x 0.1 cm. Post-Debridement Measurements and Additional Note: Post-Debridement Measurements/Treatment - Nurse 1 - General Ulcer Assessment Start: 07/06/23 11:24 Freq: Status: Active Protocol: JORGE Activity Type Activity Date Activity User E-sign Co-sign Detail Recorded Client Recorded Date Recorded By Document 07/06/23 11:24 KW Desktop 07/06/23 11:29 KW Document 07/06/23 11:46 KW Desktop 07/06/23 11:49 KW Undo 07/06/23 11:46 KW WRONG PT Desktop 07/06/23 11:55 KW Document 07/13/23 11:05 KW Desktop 07/13/23 11:13 KW Document 07/20/23 11:40 DS [id number] 07/20/23 11:43 DS Document 07/27/23 11:36 KW wound center 07/27/23 11:39 KW 07/06/23 07/13/23 07/20/23 11:24 11:05 11:40 - Today's Visit Information Type of service Follow-up Visit Follow-up Visit Follow-up Visit (Physician/REHABILITATION MEDICINE PHYSICIAN (Physician/REHABILITATION MEDICINE PHYSICIAN (Physician/REHABILITATION MEDICINE PHYSICIAN ) ) ) Arrival Mode Ambulatory, Ambulatory, Ambulatory, Wheelchair Walker Walker Accompanied by Patient Identification Verified (Name & Yes ) Vital Signs Temperature (97.8 F-99.1 F) 97.5 F L 98.2 F 98.3 F Temperature Source Temporal Temporal Temporal Pulse Rate (60-100) 76 63 82 Pulse Location Monitor Monitor Monitor Respiratory Rate (12-18) 18 18 18 Respiratory rate source Observation Observation Observation Oxygen Delivery Method Room Air Room Air Room Air Blood Pressure (90/60-120/80) 142/77 H 146/81 H 157/89 H Blood Pressure Mean (mm Hg) 98 102 111 Source Monitor Monitor Monitor Position Semi-Fowlers Semi-Fowlers Semi-Fowlers Blood Pressure Location Left Arm Right Arm Right Arm History Since Last Visit- (Skip if this is Patient's initial visit) Have you changed medications since your No No Yes last visit? Any new allergies or adverse reactions No No No Had a fall/change in ADL's that may No No No increase risk of falls Signs or symptoms of abuse and/or No No No neglect since last visit Have you been in the hospital since your No No No last visit? Has dressing in place as prescribed Yes Yes Yes Has compression in place as prescribed Yes Yes Yes Has offloadiing in place as prescribed N/A N/A No Experienced any changes in pain level or No No No management Left Footwear Regular Shoe Regular Shoe Regular Shoe Right Footwear Regular Shoe Regular Shoe Other Footwear (Comment) Other Footwear brace left foot Pain Scale: 0-10 Numeric Is Patient Pain Free? Yes Yes Yes 07/27/23 11:36 WC - Today's Visit Information Type of service Follow-up Visit (Physician/REHABILITATION MEDICINE PHYSICIAN ) Arrival Mode Ambulatory, Walker Accompanied by Patient Identification Verified (Name & Yes ) Vital Signs Temperature (97.8 F-99.1 F) 96.5 F L Temperature Source Temporal Pulse Rate (60-100) 63 Pulse Location Monitor Respiratory Rate (12-18) 18 Respiratory rate source Observation Oxygen Delivery Method Room Air Blood Pressure (90/60-120/80) 146/75 H Blood Pressure Mean (mm Hg) 98 Source Monitor Position Semi-Fowlers Blood Pressure Location Right Arm History Since Last Visit- (Skip if this is Patient's initial visit) Have you changed medications since your No last visit? Any new allergies or adverse reactions No Had a fall/change in ADL's that may No increase risk of falls Signs or symptoms of abuse and/or No neglect since last visit Have you been in the hospital since your No last visit? Has dressing in place as prescribed Yes Has compression in place as prescribed Yes Has offloadiing in place as prescribed N/A Experienced any changes in pain level or No management Left Footwear Regular Shoe Right Footwear Regular Shoe Other Footwear Pain Scale: 0-10 Numeric Is Patient Pain Free? Yes WC - Nurse 1 - General Ulcer Measurement Start: 07/06/23 11:24 Freq: Status: Active Protocol: Activity Type Activity Date Activity User E-sign Co-sign Detail Recorded Client Recorded Date Recorded By Document 07/06/23 11:24 KW Desktop 07/06/23 11:29 KW Document 07/06/23 11:46 KW Desktop 07/06/23 11:49 KW Undo 07/06/23 11:46 KW WROONG PT Desktop 07/06/23 11:56 KW Document 07/13/23 11:05 KW Desktop 07/13/23 11:13 KW Document 07/20/23 11:40 DS [id number] 07/20/23 11:43 DS Document 07/27/23 11:36 KW wound center 07/27/23 11:39 KW 07/06/23 07/13/23 07/20/23 11:24 11:05 11:40 Wound Center Nurse 1 #4- L MED HEEL -Current Size (cm) - Length 0.4 1.8 0.4 -Current Size (cm) - Width 0.1 2.4 0.2 -Current Size (cm) - Depth 0.1 0.1 0.2 -Total Square Cm 0.04 4.32 0.08 -Photo Taken No -Tunneling No -Undermining/Tunneling No -Circular Undermining No -Exudate Amt Medium Small -Exudate Type Serosanguineous Serosanguineous -Wound Margin Distinct, Indistinct, Non Distinct, Outline -Visible Outline Attached Attached -Granulation Amt Large (67-100%) Medium (34-66%) -Granulation Quality [place] -Slough/Fibrin Yes -Necrosis Amt Small (1-33%) Small (1-33%) Medium (34-66%) -Necrotic Tissue Type Adherent Slough Adherent Slough Adherent Slough -Texture (Hannah-wound Skin Appearance) Callus Assessed Assessed -Moisture (Hannah-wound Skin Appearance) Maceration Maceration Assessed, Maceration -Color (Hannah-wound Skin Appearance) Assessed Assessed Assessed -Temperature (Hannah-wound Skin No Abnormality No Abnormality Appearance) (Pt Warm) (Pt Warm) -Tenderness on Palpation (Hannah-wound No No Skin Appearance) -Ulcer Cleansing Rinsed/ Rinsed/ Irrigated with Irrigated with Saline Saline -Foul Odor after Cleansing No No -Anesthetic Used 5% Lidocaine 5% Lidocaine Gel Gel Left Calf (cm) 49 46.3 50 Left Ankle (cm) 31.7 31.2 31.5 07/27/23 11:36 Wound Center Nurse 1 #4- L MED HEEL -Current Size (cm) - Length 0.1 -Current Size (cm) - Width 0.1 -Current Size (cm) - Depth 0.1 -Total Square Cm 0.01 -Photo Taken -Tunneling -Undermining/Tunneling -Circular Undermining -Exudate Amt Small -Exudate Type Serosanguineous -Wound Margin Distinct, Outline Attached -Granulation Amt Large (67-100%) -Granulation Quality Pale,[place] -Slough/Fibrin -Necrosis Amt -Necrotic Tissue Type -Texture (Hannah-wound Skin Appearance) Assessed,Callus -Moisture (Hannah-wound Skin Appearance) Assessed, Maceration -Color (Hannah-wound Skin Appearance) Assessed -Temperature (Hannah-wound Skin No Abnormality Appearance) (Pt Warm) -Tenderness on Palpation (Hannah-wound No Skin Appearance) -Ulcer Cleansing Rinsed/ Irrigated with Saline -Foul Odor after Cleansing No -Anesthetic Used 5% Lidocaine Gel Left Calf (cm) 50 Left Ankle (cm) 31.7 - Nurse 2 - General Ulcer CM Notes Start: 07/06/23 11:24 Freq: Status: Active Protocol: Activity Type Activity Date Activity User E-sign Co-sign Detail Recorded Client Recorded Date Recorded By Document 07/06/23 11:34 JF Laptop 07/06/23 11:39 JF Document 07/13/23 11:17 DS Desktop 07/13/23 11:22 DS Document 07/20/23 11:48 [id number] 07/20/23 11:52 DS Document 07/27/23 11:48 [id number] [id number] 07/27/23 11:50 JF Edit Result 07/27/23 11:48 JF (1) [id number] 07/27/23 11:54 JF (1) #4- L MED HEEL - Bleeding Controlled with Pressure => Pressure,Silver => Nitrate 07/06/23 07/13/23 07/20/23 11:34 11:17 11:48 Wound Center Nurse 2 #4- L MED HEEL -Time 11:34 11:17 11:48 -Correct Patient Yes Yes Yes -Correct Side, Site, Position Yes Yes Yes -Correct Procedure Yes Yes Yes -Procedure Performed Yes Yes Yes -Type of Procedure Debridement Debridement Debridement -Clinical Debridement Subcutaneous Epidermis / Subcutaneous Dermis -Tissue Removed Subcutaneous Epidermis, Subcutaneous Dermis -Post Debridement (cm) - Length 3.0 0.1 1.3 -Post Debridement (cm) - Width 2.2 0.1 1.6 -Post Debridement (cm) - Depth 0.1 0.1 0.1 -Total Square (Post) (cm) 6.60 0.01 2.08 -Area of Debridement (cm) - Length 3.0 0.1 1.3 -Area of Debridement (cm) - Width 2.2 0.1 1.6 -Total Square (Area) (cm) 6.60 0.01 2.08 -Tunneling No No No -Undermining/Tunneling No No No -Circular Undermining No No No -Wound/Ulcer Outcome Not Healed Not Healed Not Healed -Ulcer Cleansing Rinsed/ Rinsed/ Irrigated with Irrigated with Saline Saline -Foul Odor after Cleansing No -Bioengineered Tissue No -Bleeding Controlled with Pressure,Silver Pressure Pressure Nitrate -Treatment Response Procedure Procedure Procedure Tolerated Well Tolerated Well Tolerated Well -Offloading No No -Assistive Device(s) Walker -Debridement - Open, 1st 20sq cm Yes -Debridement - Subq, 1st 20sq cm Yes Yes Pain Scale: 0-10 Numeric Is Patient Pain Free? Yes Yes Yes 07/27/23 11:48 Wound Center Nurse 2 #4- L MED HEEL -Time 11:49 -Correct Patient Yes -Correct Side, Site, Position Yes -Correct Procedure Yes -Procedure Performed Yes -Type of Procedure Debridement -Clinical Debridement Subcutaneous -Tissue Removed Subcutaneous -Post Debridement (cm) - Length 0.6 -Post Debridement (cm) - Width 0.6 -Post Debridement (cm) - Depth 0.1 -Total Square (Post) (cm) 0.36 -Area of Debridement (cm) - Length 0.6 -Area of Debridement (cm) - Width 0.6 -Total Square (Area) (cm) 0.36 -Tunneling No -Undermining/Tunneling No -Circular Undermining No -Wound/Ulcer Outcome Not Healed -Ulcer Cleansing Rinsed/ Irrigated with Saline -Foul Odor after Cleansing No -Bioengineered Tissue No -Bleeding Controlled with Pressure,Silver Nitrate -Treatment Response Procedure Tolerated Well -Offloading No -Assistive Device(s) -Debridement - Open, 1st 20sq cm -Debridement - Subq, 1st 20sq cm Yes Pain Scale: 0-10 Numeric Is Patient Pain Free? Yes - Nurse 3 - General Ulcer D/C NN Start: 07/06/23 11:24 Freq: Status: Active Protocol: Activity Type Activity Date Activity User E-sign Co-sign Detail Recorded Client Recorded Date Recorded By Document 07/06/23 11:52 KW Desktop 07/06/23 11:54 KW Document 07/20/23 12:04 [id number] 07/20/23 12:05 Document 07/27/23 11:57 wound center 07/27/23 11:58 KW 07/06/23 07/20/23 07/27/23 11:52 12:04 11:57 Wound Care Center Nurse 3 #5- R MEDIAL HEEL -Other Dressing ATB OINTMENT -Primary Dressing Covered/Secured with Dry Gauze & Roll Gauze, Secured with Tape #4- L MED HEEL -Ulcer Cleansing Not Cleansed -Foul Odor after Cleansing No -Other Dressing ATB OINTMENT ATB ointment -Primary Dressing Covered/Secured with Dry Gauze & Dry Gauze,Dry Dry Gauze & Roll Gauze, Gauze & Roll Roll Gauze, Secured with Gauze,Secured Secured with Tape with Tape Tape Left -Lotion applied to leg before No compression wrap -Tubular Bandage Single Layer Single Layer -Size of Tubigrip Used Size F Size E -Size E ($) 1 -Size F ($) 1 Pain Scale: 0-10 Numeric Is Patient Pain Free? Yes Yes Yes - Visit Discharge Discharge Condition Stable Stable Stable Ambulatory Status Ambulatory, Ambulatory, Ambulatory, Walker Walker Walker Transportation Private Auto Private Auto Private Auto Medication Reconcilliation completed & No No provided to patient/care provider Clinical Summary of Care Provided Yes Yes Yes Notes: PT WEARS BRACE AND CIRCAIDS Assessment/Plan Assessment/Plan (1) Non-pressure chronic ulcer of other part of left foot with fat layer exposed: CODE(S): L97.522 - Non-pressure chronic ulcer of other part of left foot with fat layer exposed PLAN: Patient was examined and evaluated. All findings were discussed with the patient. All questions were answered to the patient's satisfaction. Excisional debridement down to including subcutaneous tissue with a number 5 mm dermal curette to the left heel full-thickness ulceration without incident. Predebridement measurement is 0.5 x 0.5 x 0.1 cm. Postdebridement measurement is 0.6 x 0.6 x 0.1 cm. No signs ration was dressed with hydrogel dry sterile dressing and compression wrap. Patient will continue regular dressing changes with gentamicin gel at home. Patient will continue to use lymphedema pumps as discussed. The patient's left brace was reinforced with extra offloading pad as this is helping heal his wound. He was educated the patient that he needs to return to [facility] to have more aggressive adjustment of the left brace. It was also donned, the left brace, while in clinic and there shows evidence of loosening around the patient's left lower extremity which could also be causing rubbing with shear forces to the left medial heel area. After discussion with the patient's she will call Medicare and see if they will allow for authorization for a new custom-made brace as the existing brace may be too big for the patient's lower extremity. Patient will follow-up in [address] Spann at the wound care center. (2) Lymphedema, not elsewhere classified: CODE(S): I89.0 - Lymphedema, not elsewhere classified
[2023-08-03 13:43] VITALS: RESP 18; TEMP 35.9
--- NOTE | 2023-08-03 16:34 | PN.PCM_ITS ---
History of Present Illness Date of Service: 08/03/23 Chief Complaint: Right foot ulcer History of Wound: This 76-year-old male with significant PMHx of diabetes type II with peripheral polyneuropathy, atrial fibrillation, hyperlipidemia, HTN, blindness, insomnia, history of acute renal failure, retinitis pigmentosa, Kaposi sarcoma right foot, and history of venous insufficiency with multiple procedural interventions was seen for right and left foot ulcer. Last seen by Dr. Moore, vascular specialist in 2020. Patient has not gone back for continued evaluation. Does have confirmed venous insufficiency of the great saphenous vein bilateral with bilateral lower extremity edema and lymphedema. He denies N/V/F/chills. He denies redness or odor to the foot bilateral. He is with his today. states that he had been following with Dr. Natalia Hernandez, [facility] in office following dispense of Sigvaris compression wrap and bilateral AFO braces made by [facility]. states that these braces have caused rubbing on the inside of the heel of both feet that had formed a blister and eventually broke open into a wound. States that they have not healed in the last month and Dr. Hernandez referred them to the wound care center for further evaluation. Subjective Subjective Mr. Renae is a 77-year-old diabetic male presenting to wound care center today for follow-up evaluation of full-thickness wound to the left medial aspect of the heel. Patient has been doing home dressing changes with gentamicin gel topically and has finished his oral antibiotics. Patient admits to improved wound healing. He has turned down to the compression pressure of his mechanical pumps and we will begin pumping today. Denies trauma. Denies constitutional symptoms. No other pedal complaints at this time. Objective Data Objective Data Vital Signs: Vital Signs Temp Pulse Resp BP O2 Del Method 96.7 F L 63 18 146/75 H Room Air 08/03/23 13:43 07/27/23 11:36 08/03/23 13:43 07/27/23 11:36 08/03/23 13:43 Oxygen Delivery Method Room Air Physical Exam Narrative Vascular: DP and PT pulses are palpable. CFT is brisk. +1 pitting edema appreciated to bilateral lower extremity. Evidence of blanchable erythema appreciated to the bilateral legs. Neurological: Light touch intact. Protective sensation is absent. Patient does not respond to painful stimuli. Dermatological: Full-thickness ulceration left medial heel ulceration measures 0.5 x 0.6 x 0.1 cm. Wound base to the right heel is under granular is nature. Evidence of hyperkeratotic periwound. Excisional debridement down to including subcutaneous tissue with a number 5 mm dermal curette to the left heel full-thickness ulceration without incident. Predebridement measurement is 0.4 x 0.4 x 0.1 cm. Postdebridement measurement is 0.5 x 0.6 x 0.1 cm. Musculoskeletal: No pain on palpation to the full-thickness ulceration. No pain with calf compression. Debridement Note Debridement Note Debridement Free Text: Excisional debridement down to including subcutaneous tissue with a number 5 mm dermal curette to the left heel full-thickness ulceration without incident. Predebridement measurement is 0.4 x 0.4 x 0.1 cm. Postdebridement measurement is 0.5 x 0.6 x 0.1 cm. Post-Debridement Measurements and Additional Note: Post-Debridement Measurements/Treatment - Nurse 1 - General Ulcer Assessment Start: 07/06/23 11:24 Freq: Status: Active Protocol: JORGE Activity Type Activity Date Activity User E-sign Co-sign Detail Recorded Client Recorded Date Recorded By Document 07/06/23 11:24 KW Desktop 07/06/23 11:29 KW Document 07/06/23 11:46 KW Desktop 07/06/23 11:49 KW Undo 07/06/23 11:46 KW WRONG PT Desktop 07/06/23 11:55 KW Document 07/13/23 11:05 KW Desktop 07/13/23 11:13 KW Document 07/20/23 11:40 DS [id number] 07/20/23 11:43 DS Document 07/27/23 11:36 KW wound center 07/27/23 11:39 KW Document 08/03/23 13:43 KW wound center 08/03/23 13:57 KW 07/06/23 07/13/23 07/20/23 11:24 11:05 11:40 - Today's Visit Information Type of service Follow-up Visit Follow-up Visit Follow-up Visit (Physician/PRINCIPAL TECHNICAL ARCHITECT (Physician/PRINCIPAL TECHNICAL ARCHITECT (Physician/PRINCIPAL TECHNICAL ARCHITECT ) ) ) Arrival Mode Ambulatory, Ambulatory, Ambulatory, Wheelchair Walker Walker Accompanied by Patient Identification Verified (Name & Yes ) Vital Signs Temperature (97.8 F-99.1 F) 97.5 F L 98.2 F 98.3 F Temperature Source Temporal Temporal Temporal Pulse Rate (60-100) 76 63 82 Pulse Location Monitor Monitor Monitor Respiratory Rate (12-18) 18 18 18 Respiratory rate source Observation Observation Observation Oxygen Delivery Method Room Air Room Air Room Air Blood Pressure (90/60-120/80) 142/77 H 146/81 H 157/89 H Blood Pressure Mean (mm Hg) 98 102 111 Source Monitor Monitor Monitor Position Semi-Fowlers Semi-Fowlers Semi-Fowlers Blood Pressure Location Left Arm Right Arm Right Arm History Since Last Visit- (Skip if this is Patient's initial visit) Have you changed medications since your No No Yes last visit? Any new allergies or adverse reactions No No No Had a fall/change in ADL's that may No No No increase risk of falls Signs or symptoms of abuse and/or No No No neglect since last visit Have you been in the hospital since your No No No last visit? Has dressing in place as prescribed Yes Yes Yes Has compression in place as prescribed Yes Yes Yes Has offloadiing in place as prescribed N/A N/A No Experienced any changes in pain level or No No No management Left Footwear Regular Shoe Regular Shoe Regular Shoe Right Footwear Regular Shoe Regular Shoe Other Footwear (Comment) Other Footwear brace left foot Pain Scale: 0-10 Numeric Is Patient Pain Free? Yes Yes Yes 07/27/23 08/03/23 11:36 13:43 WC - Today's Visit Information Type of service Follow-up Visit Follow-up Visit (Physician/PRINCIPAL TECHNICAL ARCHITECT (Physician/PRINCIPAL TECHNICAL ARCHITECT ) ) Arrival Mode Ambulatory, Ambulatory, Walker Walker Accompanied by Patient Identification Verified (Name & Yes Yes ) Vital Signs Temperature (97.8 F-99.1 F) 96.5 F L 96.7 F L Temperature Source Temporal Temporal Pulse Rate (60-100) 63 Pulse Location Monitor Respiratory Rate (12-18) 18 18 Respiratory rate source Observation Observation Oxygen Delivery Method Room Air Room Air Blood Pressure (90/60-120/80) 146/75 H Blood Pressure Mean (mm Hg) 98 Source Monitor Position Semi-Fowlers Blood Pressure Location Right Arm History Since Last Visit- (Skip if this is Patient's initial visit) Have you changed medications since your No No last visit? Any new allergies or adverse reactions No No Had a fall/change in ADL's that may No No increase risk of falls Signs or symptoms of abuse and/or No No neglect since last visit Have you been in the hospital since your No No last visit? Has dressing in place as prescribed Yes Yes Has compression in place as prescribed Yes Yes Has offloadiing in place as prescribed N/A N/A Experienced any changes in pain level or No No management Left Footwear Regular Shoe Regular Shoe Right Footwear Regular Shoe Regular Shoe Other Footwear Pain Scale: 0-10 Numeric Is Patient Pain Free? Yes Yes WC - Nurse 1 - General Ulcer Measurement Start: 07/06/23 11:24 Freq: Status: Active Protocol: Activity Type Activity Date Activity User E-sign Co-sign Detail Recorded Client Recorded Date Recorded By Document 07/06/23 11:24 KW Desktop 07/06/23 11:29 KW Document 07/06/23 11:46 KW Desktop 07/06/23 11:49 KW Undo 07/06/23 11:46 KW WROONG PT Desktop 07/06/23 11:56 KW Document 07/13/23 11:05 KW Desktop 07/13/23 11:13 KW Document 07/20/23 11:40 [place] [id number] 07/20/23 11:43 DS Document 07/27/23 11:36 KW wound center 07/27/23 11:39 KW Document 08/03/23 13:43 KW wound center 08/03/23 13:57 KW 07/06/23 07/13/23 07/20/23 11:24 11:05 11:40 Wound Center Nurse 1 #4- L MED HEEL -Current Size (cm) - Length 0.4 1.8 0.4 -Current Size (cm) - Width 0.1 2.4 0.2 -Current Size (cm) - Depth 0.1 0.1 0.2 -Total Square Cm 0.04 4.32 0.08 -Photo Taken No -Tunneling No -Undermining/Tunneling No -Circular Undermining No -Exudate Amt Medium Small -Exudate Type Serosanguineous Serosanguineous -Wound Margin Distinct, Indistinct, Non Distinct, Outline -Visible Outline Attached Attached -Granulation Amt Large (67-100%) Medium (34-66%) -Granulation Quality Nekoma Nekoma Nekoma -Slough/Fibrin Yes -Necrosis Amt Small (1-33%) Small (1-33%) Medium (34-66%) -Necrotic Tissue Type Adherent Slough Adherent Slough Adherent Slough -Texture (Hannah-wound Skin Appearance) Callus Assessed Assessed -Moisture (Hannah-wound Skin Appearance) Maceration Maceration Assessed, Maceration -Color (Hannah-wound Skin Appearance) Assessed Assessed Assessed -Temperature (Hannah-wound Skin No Abnormality No Abnormality Appearance) (Pt Warm) (Pt Warm) -Tenderness on Palpation (Hannah-wound No No Skin Appearance) -Ulcer Cleansing Rinsed/ Rinsed/ Irrigated with Irrigated with Saline Saline -Foul Odor after Cleansing No No -Anesthetic Used 5% Lidocaine 5% Lidocaine Gel Gel Left Calf (cm) 49 46.3 50 Left Ankle (cm) 31.7 31.2 31.5 07/27/23 08/03/23 11:36 13:43 Wound Center Nurse 1 #4- L MED HEEL -Current Size (cm) - Length 0.1 0.8 -Current Size (cm) - Width 0.1 0.8 -Current Size (cm) - Depth 0.1 0.1 -Total Square Cm 0.01 0.64 -Photo Taken -Tunneling -Undermining/Tunneling -Circular Undermining -Exudate Amt Small Small -Exudate Type Serosanguineous Serosanguineous -Wound Margin Distinct, Distinct, Outline Outline Attached Attached -Granulation Amt Large (67-100%) Small (1-33%) -Granulation Quality Pale,Nekoma Nekoma -Slough/Fibrin -Necrosis Amt -Necrotic Tissue Type -Texture (Hannah-wound Skin Appearance) Assessed,Callus Assessed,Callus -Moisture (Hannah-wound Skin Appearance) Assessed, Assessed,Dry/ Maceration Scaly -Color (Hannah-wound Skin Appearance) Assessed Assessed -Temperature (Hannah-wound Skin No Abnormality No Abnormality Appearance) (Pt Warm) (Pt Warm) -Tenderness on Palpation (Hannah-wound No No Skin Appearance) -Ulcer Cleansing Rinsed/ Rinsed/ Irrigated with Irrigated with Saline Saline -Foul Odor after Cleansing No No -Anesthetic Used 5% Lidocaine 5% Lidocaine Gel Gel Left Calf (cm) 50 51.2 Left Ankle (cm) 31.7 31 WC - Nurse 2 - General Ulcer CM Notes Start: 07/06/23 11:24 Freq: Status: Active Protocol: Activity Type Activity Date Activity User E-sign Co-sign Detail Recorded Client Recorded Date Recorded By Document 07/06/23 11:34 JF Laptop 07/06/23 11:39 JF Document 07/13/23 11:17 DS Desktop 07/13/23 11:22 DS Document 07/20/23 11:48 DS [id number] 07/20/23 11:52 DS Document 07/27/23 11:48 JF [id number] 07/27/23 11:50 JF Edit Result 07/27/23 11:48 JF (1) [id number] 07/27/23 11:54 JF Document 08/03/23 14:11 JF [id number] 08/03/23 14:12 JF (1) #4- L MED HEEL - Bleeding Controlled with Pressure => Pressure,Silver => Nitrate 07/06/23 07/13/23 07/20/23 11:34 11:17 11:48 Wound Center Nurse 2 #4- L MED HEEL -Time 11:34 11:17 11:48 -Correct Patient Yes Yes Yes -Correct Side, Site, Position Yes Yes Yes -Correct Procedure Yes Yes Yes -Procedure Performed Yes Yes Yes -Type of Procedure Debridement Debridement Debridement -Clinical Debridement Subcutaneous Epidermis / Subcutaneous Dermis -Tissue Removed Subcutaneous Epidermis, Subcutaneous Dermis -Post Debridement (cm) - Length 3.0 0.1 1.3 -Post Debridement (cm) - Width 2.2 0.1 1.6 -Post Debridement (cm) - Depth 0.1 0.1 0.1 -Total Square (Post) (cm) 6.60 0.01 2.08 -Area of Debridement (cm) - Length 3.0 0.1 1.3 -Area of Debridement (cm) - Width 2.2 0.1 1.6 -Total Square (Area) (cm) 6.60 0.01 2.08 -Tunneling No No No -Undermining/Tunneling No No No -Circular Undermining No No No -Wound/Ulcer Outcome Not Healed Not Healed Not Healed -Ulcer Cleansing Rinsed/ Rinsed/ Irrigated with Irrigated with Saline Saline -Foul Odor after Cleansing No -Bioengineered Tissue No -Bleeding Controlled with Pressure,Silver Pressure Pressure Nitrate -Treatment Response Procedure Procedure Procedure Tolerated Well Tolerated Well Tolerated Well -Offloading No No -Assistive Device(s) Walker -Debridement - Open, 1st 20sq cm Yes -Debridement - Subq, 1st 20sq cm Yes Yes Pain Scale: 0-10 Numeric Is Patient Pain Free? Yes Yes Yes 07/27/23 08/03/23 11:48 14:11 Wound Center Nurse 2 #4- L MED HEEL -Time 11:49 14:11 -Correct Patient Yes Yes -Correct Side, Site, Position Yes Yes -Correct Procedure Yes Yes -Procedure Performed Yes Yes -Type of Procedure Debridement Debridement -Clinical Debridement Subcutaneous Subcutaneous -Tissue Removed Subcutaneous Subcutaneous -Post Debridement (cm) - Length 0.6 0.5 -Post Debridement (cm) - Width 0.6 0.6 -Post Debridement (cm) - Depth 0.1 0.1 -Total Square (Post) (cm) 0.36 0.30 -Area of Debridement (cm) - Length 0.6 0.5 -Area of Debridement (cm) - Width 0.6 0.6 -Total Square (Area) (cm) 0.36 0.30 -Tunneling No No -Undermining/Tunneling No No -Circular Undermining No No -Wound/Ulcer Outcome Not Healed Not Healed -Ulcer Cleansing Rinsed/ Rinsed/ Irrigated with Irrigated with Saline Saline -Foul Odor after Cleansing No No -Bioengineered Tissue No No -Bleeding Controlled with Pressure,Silver Pressure Nitrate -Treatment Response Procedure Procedure Tolerated Well Tolerated Well -Offloading No No -Assistive Device(s) -Debridement - Open, 1st 20sq cm -Debridement - Subq, 1st 20sq cm Yes Yes Pain Scale: 0-10 Numeric Is Patient Pain Free? Yes Yes WC - Nurse 3 - General Ulcer D/C NN Start: 07/06/23 11:24 Freq: Status: Active Protocol: Activity Type Activity Date Activity User E-sign Co-sign Detail Recorded Client Recorded Date Recorded By Document 07/06/23 11:52 KW Desktop 07/06/23 11:54 KW Document 07/20/23 12:04 [id number] 07/20/23 12:05 Document 07/27/23 11:57 KW wound center 07/27/23 11:58 KW Document 08/03/23 14:23 JF [id number] 08/03/23 14:25 JF 07/06/23 07/20/23 07/27/23 11:52 12:04 11:57 Wound Care Center Nurse 3 #5- R MEDIAL HEEL -Other Dressing ATB OINTMENT -Primary Dressing Covered/Secured with Dry Gauze & Roll Gauze, Secured with Tape #4- L MED HEEL -Ulcer Cleansing Not Cleansed -Foul Odor after Cleansing No -Other Dressing ATB OINTMENT ATB ointment -Primary Dressing Covered/Secured with Dry Gauze & Dry Gauze,Dry Dry Gauze & Roll Gauze, Gauze & Roll Roll Gauze, Secured with Gauze,Secured Secured with Tape with Tape Tape Left -Lotion applied to leg before No compression wrap -Tubular Bandage Single Layer Single Layer -Size of Tubigrip Used Size F Size E -Size E ($) 1 -Size F ($) 1 -Other Pain Scale: 0-10 Numeric Is Patient Pain Free? Yes Yes Yes WC - Visit Discharge Discharge Condition Stable Stable Stable Ambulatory Status Ambulatory, Ambulatory, Ambulatory, Walker Walker Walker Transportation Private Auto Private Auto Private Auto Accompanied by Medication Reconcilliation completed & No No provided to patient/care provider Clinical Summary of Care Provided Yes Yes Yes Notes: PT WEARS BRACE AND CIRCAIDS 08/03/23 14:23 Wound Care Center Nurse 3 #5- R MEDIAL HEEL -Other Dressing -Primary Dressing Covered/Secured with #4- L MED HEEL -Ulcer Cleansing Rinsed/ Irrigated with Saline -Foul Odor after Cleansing No -Other Dressing gentamycin ointment -Primary Dressing Covered/Secured with Dry Gauze, Secured with Tape Left -Lotion applied to leg before compression wrap -Tubular Bandage Single Layer -Size of Tubigrip Used Size F -Size E ($) -Size F ($) 1 -Other circaid Pain Scale: 0-10 Numeric Is Patient Pain Free? Yes WC - Visit Discharge Discharge Condition Stable Ambulatory Status Ambulatory, Walker Transportation Private Auto Accompanied by Medication Reconcilliation completed & Yes provided to patient/care provider Clinical Summary of Care Provided Yes Notes: Assessment/Plan Assessment/Plan (1) Non-pressure chronic ulcer of other part of left foot with fat layer exposed: CODE(S): L97.522 - Non-pressure chronic ulcer of other part of left foot with fat layer exposed PLAN: Patient was examined and evaluated. All findings were discussed with the patient. All questions were answered to the patient's satisfaction. Excisional debridement down to including subcutaneous tissue with a number 5 mm dermal curette to the left heel full-thickness ulceration without incident. Predebridement measurement is 0.4 x 0.4 x 0.1 cm. Postdebridement measurement is 0.5 x 0.6 x 0.1 cm. Ulceration was dressed with hydrogel collagen and dry sterile dressing and compression wraps bilaterally. Patient has an appointment with the antibiotic on 08/15/2023 to get his brace adjusted to offload the medial left heel. Patient was dispensed felt to continue to offload until the antibiotic appointment. Follow-up at the wound care center with Dr. Spann in 1 week. (2) Lymphedema, not elsewhere classified: CODE(S): I89.0 - Lymphedema, not elsewhere classified PLAN: Continue compression and mechanical compression while at home.
== END 2023-08-05 23:59 | disposition home or self-care (01) ==
LOC: WC 13:30
PROVIDERS: PCP Internal Medicine; Visit Provider Podiatrist Foot & Ankle Surgery
DX: E11.621 Type 2 diabetes mellitus with foot ulcer (principal); L97.422 Non-pressure chronic ulcer of left heel and midfoot with fat layer exposed; I48.91 Unspecified atrial fibrillation; E11.42 Type 2 diabetes mellitus with diabetic polyneuropathy; Z79.4 Long term (current) use of insulin; E11.51 Type 2 diabetes mellitus with diabetic peripheral angiopathy without gangrene; I87.2 Venous insufficiency (chronic) (peripheral); G47.00 Insomnia, unspecified; I10 Essential (primary) hypertension; E78.5 Hyperlipidemia, unspecified; R60.0 Localized edema; I89.0 Lymphedema, not elsewhere classified; H54.7 Unspecified visual loss; Z79.01 Long term (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 of anticoagulants; Z79.899 Other long term (current) drug therapy
CPT/HCPCS: 11042; 97597

== ENCOUNTER 2023-08-31 13:15 | Outpatient (RCR) | payer MEDICARE, OTHER, SELFPAY ==
[2023-08-06 02:32] VITALS: BP 146/75; PULSE 63; RESP 18; TEMP 35.9
[2023-08-10 10:58] VITALS: BP 145/71; PULSE 75; RESP 18; TEMP 36
--- NOTE | 2023-08-10 12:46 | PN.PCM_ITS ---
History of Present Illness Date of Service: 08/10/23 Chief Complaint: Right foot ulcer History of Wound: This 76-year-old male with significant PMHx of diabetes type II with peripheral polyneuropathy, atrial fibrillation, hyperlipidemia, HTN, blindness, insomnia, history of acute renal failure, retinitis pigmentosa, Kaposi sarcoma right foot, and history of venous insufficiency with multiple procedural interventions was seen for right and left foot ulcer. Last seen by Dr. Moore, vascular specialist in 2020. Patient has not gone back for continued evaluation. Does have confirmed venous insufficiency of the great saphenous vein bilateral with bilateral lower extremity edema and lymphedema. He denies N/V/F/chills. He denies redness or odor to the foot bilateral. He is with his today. states that he had been following with Dr. Natalia Hernandez, [facility] in office following dispense of Sigvaris compression wrap and bilateral AFO braces made by [employer]. states that these braces have caused rubbing on the inside of the heel of both feet that had formed a blister and eventually broke open into a wound. States that they have not healed in the last month and Dr. Hernandez referred them to the wound care center for further evaluation. Subjective Subjective Mr. Renae is a 77-year-old diabetic male presenting to wound care center today for follow-up evaluation of full-thickness wound to the left medial aspect of the heel. Patient has been doing home dressing changes with gentamicin gel topically and has finished his oral antibiotics. Patient admits to improved wound healing. He has turned down to the compression pressure of his mechanical pumps and we will begin pumping today. Denies trauma. Denies constitutional symptoms. No other pedal complaints at this time. Objective Data Objective Data Vital Signs: Vital Signs Temp Pulse Resp BP O2 Del Method 96.8 F L 75 18 145/71 H Room Air 08/10/23 10:58 08/10/23 10:58 08/10/23 10:58 08/10/23 10:58 08/10/23 10:58 Oxygen Delivery Method Room Air Physical Exam Narrative Vascular: DP and PT pulses are palpable. CFT is brisk. +1 pitting edema appreciated to bilateral lower extremity. Evidence of blanchable erythema appreciated to the bilateral legs. Neurological: Light touch intact. Protective sensation is absent. Patient does not respond to painful stimuli. Dermatological: Full-thickness ulceration left medial heel ulceration measures 0.5 x 0.7 x 0.1 cm. Wound base to the right heel is under granular is nature. Evidence of hyperkeratotic periwound. Excisional debridement down to including subcutaneous tissue with a number 5 mm dermal curette to the left heel full-thickness ulceration without incident. Predebridement measurement is 0.4 x 0.3 x 0.1 cm. Postdebridement measurement is 0.5 x 0.7 x 0.1 cm. Musculoskeletal: No pain on palpation to the full-thickness ulceration. No pain with calf compression. Debridement Note Debridement Note Debridement Free Text: Excisional debridement down to including subcutaneous tissue with a number 5 mm dermal curette to the left heel full-thickness ulceration without incident. Predebridement measurement is 0.4 x 0.3 x 0.1 cm. Postdebridement measurement is 0.5 x 0.7 x 0.1 cm. Post-Debridement Measurements and Additional Note: Post-Debridement Measurements/Treatment - Nurse 1 - General Ulcer Assessment Start: 08/10/23 10:58 Freq: Status: Active Protocol: [email or web address] Activity Type Activity Date Activity User E-sign Co-sign Detail Recorded Client Recorded Date Recorded By Document 08/10/23 10:58 Wound center 08/10/23 11:06 08/10/23 10:58 - Today's Visit Information Type of service Follow-up Visit (Physician/SHE[employer] WHEAT F[employer]ER ) Arrival Mode Ambulatory, Walker Accompanied by Patient Identification Verified (Name & Yes ) Vital Signs Temperature (97.8 F-99.1 F) 96.8 F L Temperature Source Temporal Pulse Rate (60-100) 75 Pulse Location Monitor Respiratory Rate (12-18) 18 Respiratory rate source Observation Oxygen Delivery Method Room Air Blood Pressure (90/60-120/80) 145/71 H Blood Pressure Mean (mm Hg) 95 Source Monitor Position Semi-Fowlers Blood Pressure Location Left Arm History Since Last Visit- (Skip if this is Patient's initial visit) Have you changed medications since your No last visit? Any new allergies or adverse reactions No Had a fall/change in ADL's that may No increase risk of falls Signs or symptoms of abuse and/or No neglect since last visit Have you been in the hospital since your No last visit? Has dressing in place as prescribed Yes Has compression in place as prescribed Yes Has offloadiing in place as prescribed N/A Experienced any changes in pain level or No management Left Footwear Regular Shoe Right Footwear Regular Shoe Pain Scale: 0-10 Numeric Is Patient Pain Free? Yes - Nurse 1 - General Ulcer Measurement Start: 08/10/23 10:58 Freq: Status: Active Protocol: Activity Type Activity Date Activity User E-sign Co-sign Detail Recorded Client Recorded Date Recorded By Document 08/10/23 10:58 Wound center 08/10/23 11:06 08/10/23 10:58 Wound Center Nurse 1 #4- L MED HEEL -Current Size (cm) - Length 0.4 -Current Size (cm) - Width 0.3 -Current Size (cm) - Depth 0.1 -Total Square Cm 0.12 -Exudate Amt Small -Exudate Type Serosanguineous -Wound Margin Distinct, Outline Attached -Granulation Quality Pale -Necrosis Amt Large (67-100%) -Necrotic Tissue Type Adherent Slough -Texture (Hannah-wound Skin Appearance) Assessed,Callus -Moisture (Hannah-wound Skin Appearance) Assessed, Maceration -Color (Hannah-wound Skin Appearance) Assessed -Temperature (Hannah-wound Skin No Abnormality Appearance) (Pt Warm) -Tenderness on Palpation (Hannah-wound No Skin Appearance) -Ulcer Cleansing Rinsed/ Irrigated with Saline -Foul Odor after Cleansing No -Anesthetic Used 5% Lidocaine Gel Right Calf (cm) 50.5 Right Ankle (cm) 31 Left Calf (cm) 49 Left Ankle (cm) 30 - Nurse 2 - General Ulcer CM Notes Start: 08/10/23 10:58 Freq: Status: Active Protocol: Activity Type Activity Date Activity User E-sign Co-sign Detail Recorded Client Recorded Date Recorded By Document 08/10/23 11:29 [id number] [id number] 08/10/23 11:30 08/10/23 11:29 Wound Center Nurse 2 #4- L MED HEEL -Time 11:30 -Correct Patient Yes -Correct Side, Site, Position Yes -Correct Procedure Yes -Procedure Performed Yes -Type of Procedure Debridement -Clinical Debridement Subcutaneous -Tissue Removed Subcutaneous -Post Debridement (cm) - Length 0.5 -Post Debridement (cm) - Width 0.7 -Post Debridement (cm) - Depth 0.1 -Total Square (Post) (cm) 0.35 -Area of Debridement (cm) - Length 0.5 -Area of Debridement (cm) - Width 0.7 -Total Square (Area) (cm) 0.35 -Tunneling No -Undermining/Tunneling No -Circular Undermining No -Wound/Ulcer Outcome Not Healed -Ulcer Cleansing Rinsed/ Irrigated with Saline -Foul Odor after Cleansing No -Bioengineered Tissue No -Bleeding Controlled with Pressure -Treatment Response Procedure Tolerated Well -Offloading No -Debridement - Subq, 1st 20sq cm Yes Pain Scale: 0-10 Numeric Is Patient Pain Free? Yes - Nurse 3 - General Ulcer D/C NN Start: 08/10/23 10:58 Freq: Status: Active Protocol: Activity Type Activity Date Activity User E-sign Co-sign Detail Recorded Client Recorded Date Recorded By Document 08/10/23 11:36 Wound center 08/10/23 11:36 08/10/23 11:36 Wound Care Center Nurse 3 #4- L MED HEEL -Other Dressing ATB OINTMENT -Primary Dressing Covered/Secured with Dry Gauze & Roll Gauze, Secured with Tape Left -Tubular Bandage Single Layer -Size of Tubigrip Used Size F -Size F ($) 1 -Other PERSONAL CIRCAIDES Pain Scale: 0-10 Numeric Is Patient Pain Free? Yes - Visit Discharge Discharge Condition Stable Ambulatory Status Ambulatory, Walker Transportation Private Auto Medication Reconcilliation completed & No provided to patient/care provider Clinical Summary of Care Provided Yes Assessment/Plan Assessment/Plan (1) Non-pressure chronic ulcer of other part of left foot with fat layer exposed: CODE(S): L97.522 - Non-pressure chronic ulcer of other part of left foot with fat layer exposed PLAN: Patient was examined and evaluated. All findings were discussed with the patient. All questions were answered to the patient's satisfaction. Excisional debridement down to including subcutaneous tissue with a number 5 mm dermal curette to the left heel full-thickness ulceration without incident. Predebridement measurement is 0.4 x 0.3 x 0.1 cm. Postdebridement measurement is 0.5 x 0.7 x 0.1 cm. Ulceration was dressed with hydrogel collagen and dry sterile dressing and compression wraps bilaterally. Patient has an appointment with the [facility] on 08/15/2023 to get his brace adjusted to offload the medial left heel. Follow-up at the wound care center with Dr. Spann in 2 week. (2) Lymphedema, not elsewhere classified: CODE(S): I89.0 - Lymphedema, not elsewhere classified
[2023-08-24 10:58] VITALS: BP 166/70; PULSE 67; RESP 16; TEMP 36.5
--- NOTE | 2023-08-24 16:30 | PCM.WC.PN ---
History of Present Illness Date of Service: 08/24/23 Chief Complaint: Right foot ulcer History of Wound: This 76-year-old male with significant PMHx of diabetes type II with peripheral polyneuropathy, atrial fibrillation, hyperlipidemia, HTN, blindness, insomnia, history of acute renal failure, retinitis pigmentosa, Kaposi sarcoma right foot, and history of venous insufficiency with multiple procedural interventions was seen for right and left foot ulcer. Last seen by Dr. Moore, vascular specialist in 2020. Patient has not gone back for continued evaluation. Does have confirmed venous insufficiency of the great saphenous vein bilateral with bilateral lower extremity edema and lymphedema. He denies N/V/F/chills. He denies redness or odor to the foot bilateral. He is with his today. states that he had been following with Dr. Natalia Hernandez, [facility] in office following dispense of Sigvaris compression wrap and bilateral AFO braces made by [employer]. states that these braces have caused rubbing on the inside of the heel of both feet that had formed a blister and eventually broke open into a wound. States that they have not healed in the last month and Dr. Hernandez referred them to the wound care center for further evaluation. Subjective Subjective Mr. Renae is a 77-year-old diabetic male presenting to wound care center today for follow-up evaluation of full-thickness wound to the left medial aspect of the heel. Patient has been doing home dressing changes with gentamicin gel topically and has finished his oral antibiotics. Patient admits to improved wound healing. He has turned down to the compression pressure of his mechanical pumps and we will begin pumping today. Patient did get his left brace adjusted by [employer] [employer]. Denies trauma. Denies constitutional symptoms. No other pedal complaints at this time. Objective Data Objective Data Vital Signs: Vital Signs Temp Pulse Resp BP O2 Del Method 97.7 F L 67 16 166/70 H Room Air 08/24/23 10:58 08/24/23 10:58 08/24/23 10:58 08/24/23 10:58 08/24/23 10:58 Oxygen Delivery Method Room Air Physical Exam Narrative Vascular: DP and PT pulses are palpable. CFT is brisk. +1 pitting edema appreciated to bilateral lower extremity. Evidence of blanchable erythema appreciated to the bilateral legs. Neurological: Light touch intact. Protective sensation is absent. Patient does not respond to painful stimuli. Dermatological: Full-thickness ulceration left medial heel ulceration measures 1.4 x 1.5 x 0.1 cm. Wound base to the left heel is granular is nature. Evidence of hyperkeratotic periwound. Excisional debridement down to including subcutaneous tissue with a number 5 mm dermal curette to the left heel full-thickness ulceration without incident. Predebridement measurement is 0.5 x 0.6 x 0.1 cm. Postdebridement measurement is 1.4 x 1.5 x 0.1 cm. Musculoskeletal: No pain on palpation to the full-thickness ulceration. No pain with calf compression. Debridement Note Debridement Note Debridement Free Text: Excisional debridement down to including subcutaneous tissue with a number 5 mm dermal curette to the left heel full-thickness ulceration without incident. Predebridement measurement is 0.5 x 0.6 x 0.1 cm. Postdebridement measurement is 1.4 x 1.5 x 0.1 cm. Post-Debridement Measurements and Additional Note: Post-Debridement Measurements/Treatment - Nurse 1 - General Ulcer Assessment Start: 08/10/23 10:58 Freq: Status: Active Protocol: [email or web address] Activity Type Activity Date Activity User E-sign Co-sign Detail Recorded Client Recorded Date Recorded By Document 08/10/23 10:58 KW Wound center 08/10/23 11:06 KW Document 08/24/23 10:58 KW j 08/24/23 11:04 KW 08/10/23 08/24/23 10:58 10:58 - Today's Visit Information Type of service Follow-up Visit Follow-up Visit (Physician/DOOR FITTER (Physician/DOOR FITTER ) ) Arrival Mode Ambulatory, Ambulatory, Walker Walker Accompanied by Patient Identification Verified (Name & Yes Yes ) Vital Signs Temperature (97.8 F-99.1 F) 96.8 F L 97.7 F L Temperature Source Temporal Temporal Pulse Rate (60-100) 75 67 Pulse Location Monitor Monitor Respiratory Rate (12-18) 18 16 Respiratory rate source Observation Observation Oxygen Delivery Method Room Air Room Air Blood Pressure (90/60-120/80) 145/71 H 166/70 H Blood Pressure Mean (mm Hg) 95 102 Source Monitor Monitor Position Semi-Fowlers Semi-Fowlers Blood Pressure Location Left Arm Left Arm History Since Last Visit- (Skip if this is Patient's initial visit) Have you changed medications since your No No last visit? Any new allergies or adverse reactions No No Had a fall/change in ADL's that may No No increase risk of falls Signs or symptoms of abuse and/or No No neglect since last visit Have you been in the hospital since your No No last visit? Has dressing in place as prescribed Yes Yes Has compression in place as prescribed Yes Yes Has offloadiing in place as prescribed N/A N/A Experienced any changes in pain level or No No management Left Footwear Regular Shoe Regular Shoe Right Footwear Regular Shoe Regular Shoe Pain Scale: 0-10 Numeric Is Patient Pain Free? Yes Yes WC - Nurse 1 - General Ulcer Measurement Start: 08/10/23 10:58 Freq: Status: Active Protocol: Activity Type Activity Date Activity User E-sign Co-sign Detail Recorded Client Recorded Date Recorded By Document 08/10/23 10:58 KW Wound center 08/10/23 11:06 KW Document 08/24/23 10:58 KW j 08/24/23 11:04 KW 08/10/23 08/24/23 10:58 10:58 Wound Center Nurse 1 #4- L MED HEEL -Current Size (cm) - Length 0.4 0.1 -Current Size (cm) - Width 0.3 0.1 -Current Size (cm) - Depth 0.1 0.1 -Total Square Cm 0.12 0.01 -Date of Last Picture (Recall this 08/24/23 field) -Exudate Amt Small Small -Exudate Type Serosanguineous Serosanguineous -Wound Margin Distinct, Distinct, Outline Outline Attached Attached -Granulation Amt Small (1-33%) -Granulation Quality Pale Pale,[place] -Necrosis Amt Large (67-100%) Large (67-100%) -Necrotic Tissue Type Adherent Slough Adherent Slough -Texture (Hannah-wound Skin Appearance) Assessed,Callus Assessed -Moisture (Hannah-wound Skin Appearance) Assessed, Assessed, Maceration Maceration -Color (Hannah-wound Skin Appearance) Assessed Assessed -Temperature (Hannah-wound Skin No Abnormality No Abnormality Appearance) (Pt Warm) (Pt Warm) -Tenderness on Palpation (Hannah-wound No No Skin Appearance) -Ulcer Cleansing Rinsed/ Rinsed/ Irrigated with Irrigated with Saline Saline -Foul Odor after Cleansing No No -Anesthetic Used 5% Lidocaine 5% Lidocaine Gel Gel Right Calf (cm) 50.5 Right Ankle (cm) 31 Left Calf (cm) 49 51 Left Ankle (cm) 30 31 WC - Nurse 2 - General Ulcer CM Notes Start: 08/10/23 10:58 Freq: Status: Active Protocol: Activity Type Activity Date Activity User E-sign Co-sign Detail Recorded Client Recorded Date Recorded By Document 08/10/23 11:29 [id number] 08/10/23 11:30 Document 08/24/23 11:31 [id number] 08/24/23 11:32 08/10/23 08/24/23 11:29 11:31 Wound Center Nurse 2 #4- L MED HEEL -Time 11:30 11:31 -Correct Patient Yes Yes -Correct Side, Site, Position Yes Yes -Correct Procedure Yes Yes -Procedure Performed Yes Yes -Type of Procedure Debridement Debridement -Clinical Debridement Subcutaneous Subcutaneous -Tissue Removed Subcutaneous Subcutaneous -Post Debridement (cm) - Length 0.5 1.4 -Post Debridement (cm) - Width 0.7 1.5 -Post Debridement (cm) - Depth 0.1 0.1 -Total Square (Post) (cm) 0.35 2.10 -Area of Debridement (cm) - Length 0.5 1.4 -Area of Debridement (cm) - Width 0.7 1.5 -Total Square (Area) (cm) 0.35 2.10 -Tunneling No No -Undermining/Tunneling No No -Circular Undermining No No -Wound/Ulcer Outcome Not Healed Not Healed -Ulcer Cleansing Rinsed/ Rinsed/ Irrigated with Irrigated with Saline Saline -Foul Odor after Cleansing No No -Bioengineered Tissue No No -Bleeding Controlled with Pressure Pressure -Treatment Response Procedure Procedure Tolerated Well Tolerated Well -Offloading No No -Debridement - Subq, 1st 20sq cm Yes Yes Pain Scale: 0-10 Numeric Is Patient Pain Free? Yes Yes - Nurse 3 - General Ulcer D/C NN Start: 08/10/23 10:58 Freq: Status: Active Protocol: Activity Type Activity Date Activity User E-sign Co-sign Detail Recorded Client Recorded Date Recorded By Document 08/10/23 11:36 Wound center 08/10/23 11:36 KW Document 08/24/23 11:27 [id number] 08/24/23 11:29 JF 08/10/23 08/24/23 11:36 11:27 Wound Care Center Nurse 3 #4- L MED HEEL -Other Dressing ATB OINTMENT hydrogel -Primary Dressing Covered/Secured with Dry Gauze & Dry Gauze, Roll Gauze, Secured with Secured with Tape Tape Left -Tubular Bandage Single Layer Single Layer -Size of Tubigrip Used Size F Size F -Size F ($) 1 1 -Other PERSONAL CIRCAIDES Pain Scale: 0-10 Numeric Is Patient Pain Free? Yes Yes WC - Visit Discharge Discharge Condition Stable Stable Ambulatory Status Ambulatory, Ambulatory, Walker Walker Transportation Private Auto Private Auto Medication Reconcilliation completed & No No provided to patient/care provider Clinical Summary of Care Provided Yes Yes Assessment/Plan Assessment/Plan (1) Non-pressure chronic ulcer of other part of left foot with fat layer exposed: CODE(S): L97.522 - Non-pressure chronic ulcer of other part of left foot with fat layer exposed PLAN: Patient was examined and evaluated. All findings were discussed with the patient. All questions were answered to the patient's satisfaction. Excisional debridement down to including subcutaneous tissue with a number 5 mm dermal curette to the left heel full-thickness ulceration without incident. Predebridement measurement is 0.5 x 0.6 x 0.1 cm. Postdebridement measurement is 1.4 x 1.5 x 0.1 cm. The patient's full-thickness wound to the left heel was dressed with hydrogel collagen and dry sterile dressing and Tubigrip. Extra felt was placed on the left AFO for continued offloading we will see if the patient needs additional support which a new order will be given to [facility] [employer]. Patient's will continue gentamicin gel topically dry sterile dressing and compression wrap. Patient will continue to use mechanical pumps. Educated the patient to continue strict blood sugar control. Follow-up at the wound care center with Dr. Spann in 1 week. (2) Acute painful diabetic polyneuropathy: CODE(S): E11.42 - Type 2 diabetes mellitus with diabetic polyneuropathy
--- NOTE | 2023-08-26 11:14 | WC ---
08/24/2023 LEFT MEDIAL HEEL
[2023-08-31 13:09] VITALS: BP 163/60; PULSE 55; RESP 18; TEMP 36.4
--- NOTE | 2023-08-31 14:18 | PN.PCM_ITS ---
History of Present Illness Date of Service: 08/31/23 Chief Complaint: Right foot ulcer History of Wound: This 76-year-old male with significant PMHx of diabetes type II with peripheral polyneuropathy, atrial fibrillation, hyperlipidemia, HTN, blindness, insomnia, history of acute renal failure, retinitis pigmentosa, Kaposi sarcoma right foot, and history of venous insufficiency with multiple procedural interventions was seen for right and left foot ulcer. Last seen by Dr. Moore, vascular specialist in 2020. Patient has not gone back for continued evaluation. Does have confirmed venous insufficiency of the great saphenous vein bilateral with bilateral lower extremity edema and lymphedema. He denies N/V/F/chills. He denies redness or odor to the foot bilateral. He is with his today. states that he had been following with Dr. Natalia Hernandez, [place] in office following dispense of Sigvaris compression wrap and bilateral AFO braces made by [employer]. states that these braces have caused rubbing on the inside of the heel of both feet that had formed a blister and eventually broke open into a wound. States that they have not healed in the last month and Dr. Hernandez referred them to the wound care center for further evaluation. Subjective Subjective Mr. Renae is a 77-year-old diabetic male presenting to wound care center today for follow-up evaluation of full-thickness wound to the left medial aspect of the heel. Patient has been doing dressing changes at home with gentamicin ointment dry sterile dressing and compression wraps. They state there is some green discoloration to the left medial heel. He is using the brace as tolerated. Denies trauma. Denies constitutional symptoms. Other pedal complaints at this time. Objective Data Objective Data Vital Signs: Vital Signs Temp Pulse Resp BP O2 Del Method 97.5 F L 55 L 18 163/60 H Room Air 08/31/23 13:08/31/23 13:08/31/23 13:08/31/23 13:08/31/23 13:09 Oxygen Delivery Method Room Air Physical Exam Narrative Vascular: DP and PT pulses are palpable. CFT is brisk. +1 pitting edema appreciated to bilateral lower extremity. Evidence of blanchable erythema appreciated to the bilateral legs. Neurological: Light touch intact. Protective sensation is absent. Patient does not respond to painful stimuli. Dermatological: Full-thickness ulceration to left medial heel measuring 3.1 x 3.5 x 0.1 cm. Evidence of green this colorization to the periwound. No drainage. Sweet smelling malodor. No erythema or proximal streaking. Excisional debridement down to and including subcutaneous tissue with a number 3 mm dermal curette to the left medial heel of the left lower extremity without incident. Predebridement measurement is 1.1 x 1.1 x 0.1 cm. Postdebridement measurement is 3.1 x 3.5 x 0.1 cm. Musculoskeletal: No pain on palpation to the full-thickness ulceration. Pain with calf compression. Debridement Note Debridement Note Debridement Free Text: Excisional debridement down to and including subcutaneous tissue with a number 3 mm dermal curette to the left medial heel of the left lower extremity without incident. Predebridement measurement is 1.1 x 1.1 x 0.1 cm. Postdebridement measurement is 3.1 x 3.5 x 0.1 cm. Post-Debridement Measurements and Additional Note: Post-Debridement Measurements/Treatment - Nurse 1 - General Ulcer Assessment Start: 08/10/23 10:58 Freq: Status: Active Protocol: [email or web address] Activity Type Activity Date Activity User E-sign Co-sign Detail Recorded Client Recorded Date Recorded By Document 08/10/23 10:58 KW Wound center 08/10/23 11:06 KW Document 08/24/23 10:58 KW j 08/24/23 11:04 KW Document 08/31/23 13:09 KW ; 08/31/23 13:16 KW 08/10/23 08/24/23 08/31/23 10:58 10:58 13:09 - Today's Visit Information Type of service Follow-up Visit Follow-up Visit Follow-up Visit (Physician/PROGRESSIVE ASSEMBLER AND FITTER (Physician/PROGRESSIVE ASSEMBLER AND FITTER (Physician/PROGRESSIVE ASSEMBLER AND FITTER ) ) ) Arrival Mode Ambulatory, Ambulatory, Ambulatory, Walker Walker Walker Accompanied by Patient Identification Verified (Name & Yes Yes Yes ) Vital Signs Temperature (97.8 F-99.1 F) 96.8 F L 97.7 F L 97.5 F L Temperature Source Temporal Temporal Temporal Pulse Rate (60-100) 75 67 55 L Pulse Location Monitor Monitor Monitor Respiratory Rate (12-18) 18 16 18 Respiratory rate source Observation Observation Observation Oxygen Delivery Method Room Air Room Air Room Air Blood Pressure (90/60-120/80) 145/71 H 166/70 H 163/60 H Blood Pressure Mean (mm Hg) 95 102 94 Source Monitor Monitor Monitor Position Semi-Fowlers Semi-Fowlers Semi-Fowlers Blood Pressure Location Left Arm Left Arm Right Arm History Since Last Visit- (Skip if this is Patient's initial visit) Have you changed medications since your No No No last visit? Any new allergies or adverse reactions No No No Had a fall/change in ADL's that may No No No increase risk of falls Signs or symptoms of abuse and/or No No No neglect since last visit Have you been in the hospital since your No No No last visit? Has dressing in place as prescribed Yes Yes Yes Has compression in place as prescribed Yes Yes Yes Has offloadiing in place as prescribed N/A N/A N/A Experienced any changes in pain level or No No No management Left Footwear Regular Shoe Regular Shoe Regular Shoe Right Footwear Regular Shoe Regular Shoe Regular Shoe Pain Scale: 0-10 Numeric Is Patient Pain Free? Yes Yes Yes WC - Nurse 1 - General Ulcer Measurement Start: 08/10/23 10:58 Freq: Status: Active Protocol: Activity Type Activity Date Activity User E-sign Co-sign Detail Recorded Client Recorded Date Recorded By Document 08/10/23 10:58 KW Wound center 08/10/23 11:06 KW Document 08/24/23 10:58 KW j 08/24/23 11:04 KW Document 08/31/23 13:09 KW ; 08/31/23 13:16 KW 08/10/23 08/24/23 08/31/23 10:58 10:58 13:09 Wound Center Nurse 1 #4- L MED HEEL -Current Size (cm) - Length 0.4 0.1 1.4 -Current Size (cm) - Width 0.3 0.1 1 -Current Size (cm) - Depth 0.1 0.1 0.1 -Total Square Cm 0.12 0.01 1.4 -Date of Last Picture (Recall this 08/24/23 field) -Photo Taken Yes -Exudate Amt Small Small Medium -Exudate Type Serosanguineous Serosanguineous Serosanguineous -Wound Margin Distinct, Distinct, Distinct, Outline Outline Outline Attached Attached Attached -Granulation Amt Small (1-33%) Large (67-100%) -Granulation Quality Pale Pale,[place] -Necrosis Amt Large (67-100%) Large (67-100%) Small (1-33%) -Necrotic Tissue Type Adherent Slough Adherent Slough Adherent Slough -Structure Exposed N/A -Texture (Hannah-wound Skin Appearance) Assessed,Callus Assessed Scarring -Moisture (Hannah-wound Skin Appearance) Assessed, Assessed, Maceration Maceration Maceration -Color (Hannah-wound Skin Appearance) Assessed Assessed Erythema, Hemosiderin Staining -Temperature (Hannah-wound Skin No Abnormality No Abnormality No Abnormality Appearance) (Pt Warm) (Pt Warm) (Pt Warm) -Tenderness on Palpation (Hannah-wound No No Skin Appearance) -Ulcer Cleansing Rinsed/ Rinsed/ Soap and Water Irrigated with Irrigated with Saline Saline -Foul Odor after Cleansing No No No -Anesthetic Used 5% Lidocaine 5% Lidocaine 5% Lidocaine Gel Gel Gel Right Calf (cm) 50.5 Right Ankle (cm) 31 Left Calf (cm) 49 51 52 Left Ankle (cm) 30 31 32 - Nurse 2 - General Ulcer CM Notes Start: 08/10/23 10:58 Freq: Status: Active Protocol: Activity Type Activity Date Activity User E-sign Co-sign Detail Recorded Client Recorded Date Recorded By Document 08/10/23 11:29 [id number] 08/10/23 11:30 Document 08/24/23 11:31 [id number] 08/24/23 11:32 Document 08/31/23 13:31 000 08/31/23 13:32 08/10/23 08/24/23 08/31/23 11:29 11:31 13:31 Wound Center Nurse 2 #4- L MED HEEL -Time 11:30 11:31 13:32 -Correct Patient Yes Yes Yes -Correct Side, Site, Position Yes Yes Yes -Correct Procedure Yes Yes Yes -Procedure Performed Yes Yes Yes -Type of Procedure Debridement Debridement Debridement -Clinical Debridement Subcutaneous Subcutaneous Subcutaneous -Tissue Removed Subcutaneous Subcutaneous Subcutaneous -Post Debridement (cm) - Length 0.5 1.4 3.1 -Post Debridement (cm) - Width 0.7 1.5 3.5 -Post Debridement (cm) - Depth 0.1 0.1 0.1 -Total Square (Post) (cm) 0.35 2.10 10.85 -Area of Debridement (cm) - Length 0.5 1.4 3.1 -Area of Debridement (cm) - Width 0.7 1.5 3.5 -Total Square (Area) (cm) 0.35 2.10 10.85 -Tunneling No No No -Undermining/Tunneling No No No -Circular Undermining No No No -Wound/Ulcer Outcome Not Healed Not Healed Not Healed -Ulcer Cleansing Rinsed/ Rinsed/ Rinsed/ Irrigated with Irrigated with Irrigated with Saline Saline Saline -Foul Odor after Cleansing No No No -Bioengineered Tissue No No No -Bleeding Controlled with Pressure Pressure Pressure -Treatment Response Procedure Procedure Procedure Tolerated Well Tolerated Well Tolerated Well -Offloading No No No -Debridement - Subq, 1st 20sq cm Yes Yes Yes Pain Scale: 0-10 Numeric Is Patient Pain Free? Yes Yes Yes - Nurse 3 - General Ulcer D/C NN Start: 08/10/23 10:58 Freq: Status: Active Protocol: Activity Type Activity Date Activity User E-sign Co-sign Detail Recorded Client Recorded Date Recorded By Document 08/10/23 11:36 Wound center 08/10/23 11:36 Document 08/24/23 11:27 [id number] 08/24/23 11:29 Document 08/31/23 14:07 KW ; 08/31/23 14:08 KW 08/10/23 08/24/23 08/31/23 11:36 11:27 14:07 Wound Care Center Nurse 3 #4- L MED HEEL -Primary Dressing Applied Optilok 6.5x10 -Other Dressing ATB OINTMENT hydrogel BETADINE -Primary Dressing Covered/Secured with Dry Gauze & Dry Gauze, Dry Gauze & Roll Gauze, Secured with Roll Gauze, Secured with Tape Secured with Tape Tape -Optilok 6.5x10 1 Left -Multi-Layered Wrap Application Multi-Layer Comp - Left ($) -Tubular Bandage Single Layer Single Layer -Size of Tubigrip Used Size F Size F -Size F ($) 1 1 -Other PERSONAL CIRCAIDES Pain Scale: 0-10 Numeric Is Patient Pain Free? Yes Yes Yes - Visit Discharge Discharge Condition Stable Stable Ambulatory Status Ambulatory, Ambulatory, Walker Walker Transportation Private Auto Private Auto Medication Reconcilliation completed & No No provided to patient/care provider Clinical Summary of Care Provided Yes Yes Assessment/Plan Assessment/Plan (1) Non-pressure chronic ulcer of other part of left foot with fat layer exposed: CODE(S): L97.522 - Non-pressure chronic ulcer of other part of left foot with fat layer exposed PLAN: Patient was examined and evaluated. All findings were discussed with the patient. All questions were answered to the patient's satisfaction. Excisional debridement down to and including subcutaneous tissue with a number 3 mm dermal curette to the left medial heel of the left lower extremity without incident. Predebridement measurement is 1.1 x 1.1 x 0.1 cm. Postdebridement measurement is 3.1 x 3.5 x 0.1 cm. At this time we will stop the gentamicin gel topically and will switch to Betadine soaked 4 x 4's. Patient will also be placed in 3M wrap to left lower extremity. He will continue to wear his CircAid's to the right lower extremity. Educated patient continue to maintain blood sugar control. Culture taken after debridement to the left heel. 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 Follow-up at the wound care center with Dr. Spann in 1 week. (2) Lymphedema, not elsewhere classified: CODE(S): I89.0 - Lymphedema, not elsewhere classified
== END 2023-09-04 23:59 | disposition home or self-care (01) ==
LOC: WC 13:15
PROVIDERS: PCP Internal Medicine; Referring Provider Podiatrist Foot & Ankle Surgery; Visit Provider Podiatrist Foot & Ankle Surgery
DX: E11.621 Type 2 diabetes mellitus with foot ulcer (principal); L97.422 Non-pressure chronic ulcer of left heel and midfoot with fat layer exposed; E11.42 Type 2 diabetes mellitus with diabetic polyneuropathy; Z79.4 Long term (current) use of insulin; I10 Essential (primary) hypertension; R60.0 Localized edema; I89.0 Lymphedema, not elsewhere classified; G47.00 Insomnia, unspecified; I87.2 Venous insufficiency (chronic) (peripheral); H54.7 Unspecified visual loss; E78.5 Hyperlipidemia, unspecified; Z79.02 Long term (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 of antithrombotics/antiplatelets; Z79.890 Hormone replacement therapy; Z79.899 Other long term (current) drug therapy
CPT/HCPCS: 11042; 29581; 87070; 87075; 87077; 87186; 87205

== ENCOUNTER → 2023-09-24 | Outpatient (CLI) | payer MEDICARE, OTHER, SELFPAY ==
--- NOTE | 2023-09-24 08:13 | MRI_ITS ---
STUDY: MRI LEFT ANKLE WITHOUT CONTRAST REASON FOR EXAM: Male, 77 years old. L heel wound s/p picking off skin, wound not heeling, unable to ambulate without pain, diabetic TECHNIQUE: Standardized fat and water weighted pulse sequences were obtained in all 3 orthogonal planes. COMPARISON: None. FINDINGS: A small ankle joint effusion is present. Mild to moderate subcutaneous edema is present in the lower leg and ankle, more prominent on the medial side. No visualized soft tissue abscess. No visualized intraosseous Volodymyr''s abscess. Mild patchy marrow edema is present across the tibiotalar articulation and to a lesser extent the posterior talocalcaneal articulation due to degenerative narrowing and perhaps reactive edema or sequela from a contusion, however no fracture is seen. There is no cortical erosion or intraosseous infiltration or lucency to indicate infection. Blistering is seen in the subcutaneous tissues/skin at the anterior aspect of the ankle involving a 2.52 cm region. Deep subcutaneous phlegmonous pocket is deep to a superficial skin ulcer seen on the medial side and posterior aspect of the calcaneus on image 19/28 series 6 measuring 2.05 cm in diameter consistent with cellulitic changes, however no abscess is present. There is no underlying cortical erosion or bony infiltration or other signs of infection of the bone. Mild patchy edematous signal in the plantar medial foot and ankle muscles is consistent with myositis. Moderate to significant fatty atrophy of the foot muscles consistent with chronic neuropathy. Mild osteoarthritic/degenerative changes of the third and fourth TMT articulations noted. Normal posterior tibialis tendon. Normal flexor digitorum longus tendon. Normal flexor hallucis longus tendon. Normal peroneus longus and brevis tendons. Normal tibialis anterior tendon. Normal extensor hallucis longus tendon. Normal extensor digitorum longus tendons. Normal Achilles tendon and teno-osseous insertion. Normal plantar fascia. Normal plantar calcaneal tubercles. Normal intrinsic muscles of the rearfoot. Normal distal tibiofibular syndesmotic ligamentous complex. Normal lateral ligamentous complex. Normal subtalar ligaments and sinus tarsi. Normal deltoid ligamentous complexes. Normal plantar calcaneonavicular (spring) ligament. Normal tibiotalar articulation. Normal talar dome. Normal subtalar articulations. Normal talonavicular articulation. Normal calcaneocuboid articulation. Normal navicular-cuneiform articulations. MRI/Lower Ext Joint Only (Routine) IMPRESSION: 1. Deep subcutaneous phlegmonous pocket is deep to a superficial skin ulcer seen on the medial side and posterior aspect of the calcaneus on image 19/28 series 6 measuring 2.05 cm in diameter consistent with cellulitic changes, however no abscess is present. There is no underlying cortical erosion or bony infiltration or other signs of infection of the bone. 2. Mild patchy marrow edema is present across the tibiotalar articulation and to a lesser extent the posterior talocalcaneal articulation due to degenerative narrowing and perhaps reactive edema or sequela from a contusion, however no fracture is seen. There is no cortical erosion or intraosseous infiltration or lucency to indicate infection. Electronically Signed: Eugene Kahn MD at 16:00 EDT ,
== END | disposition home or self-care (01) ==
LOC: MRI 08:10
PROVIDERS: PCP Internal Medicine; Referring Provider Podiatrist Foot & Ankle Surgery; Visit Provider Podiatrist Foot & Ankle Surgery
DX: L97.429 Non-pressure chronic ulcer of left heel and midfoot with unspecified severity (principal)
CPT/HCPCS: 73721

== ENCOUNTER 2023-09-28 13:15 | Outpatient (RCR) | payer MEDICARE, OTHER, SELFPAY ==
[2023-09-05 00:46] VITALS: BP 146/75; PULSE 63; RESP 18; TEMP 35.9
[2023-09-07 14:09] VITALS: BP 152/62; PULSE 61; RESP 20; TEMP 36.7
--- NOTE | 2023-09-07 15:39 | PCM.WC.PN ---
History of Present Illness Date of Service: 09/07/23 Chief Complaint: Right foot ulcer History of Wound: This 76-year-old male with significant PMHx of diabetes type II with peripheral polyneuropathy, atrial fibrillation, hyperlipidemia, HTN, blindness, insomnia, history of acute renal failure, retinitis pigmentosa, Kaposi sarcoma right foot, and history of venous insufficiency with multiple procedural interventions was seen for right and left foot ulcer. Last seen by Dr. Moore, vascular specialist in 2020. Patient has not gone back for continued evaluation. Does have confirmed venous insufficiency of the great saphenous vein bilateral with bilateral lower extremity edema and lymphedema. He denies N/V/F/chills. He denies redness or odor to the foot bilateral. He is with his today. states that he had been following with Dr. Natalia Hernandez, [place] in office following dispense of Sigvaris compression wrap and bilateral AFO braces made by [employer]. states that these braces have caused rubbing on the inside of the heel of both feet that had formed a blister and eventually broke open into a wound. States that they have not healed in the last month and Dr. Hernandez referred them to the wound care center for further evaluation. Subjective Subjective Mr. Renae is a 77-year-old diabetic male presenting to wound care center today for follow-up evaluation of full-thickness wound to the left medial aspect of the heel. I have been doing home dressing changes with sloppy Betadine soaked gauze dry sterile dressing and compression wraps. Patient has kept a strict blood sugar control. Denies trauma. Denies constitutional symptoms. No other complaints at this time. Objective Data Objective Data Vital Signs: Vital Signs Temp Pulse Resp BP 98.1 F 61 20 H 152/62 H 09/07/23 14:09 09/07/23 14:09 09/07/23 14:09/07/23 14:09 Physical Exam Narrative Vascular: DP and PT pulses are palpable. CFT is brisk. +1 pitting edema appreciated to bilateral lower extremity. Evidence of blanchable erythema appreciated to the bilateral legs. Neurological: Light touch intact. Protective sensation is absent. Patient does not respond to painful stimuli. Dermatological: Full-thickness ulceration to left medial heel measuring 3.1 x 3.5 x 0.1 cm. Evidence of green this colorization to the periwound, improving. No drainage. No erythema or proximal streaking. Excisional debridement down to and including subcutaneous tissue with a number 3 mm dermal curette to the left medial heel of the left lower extremity without incident. Predebridement measurement is 0.5 x 0.5 x 0.1 cm. Postdebridement measurement is 3.1 x 3.5 x 0.1 cm. Musculoskeletal: No pain on palpation to the full-thickness ulceration. Pain with calf compression. Debridement Note Debridement Note Debridement Free Text: Excisional debridement down to and including subcutaneous tissue with a number 3 mm dermal curette to the left medial heel of the left lower extremity without incident. Predebridement measurement is 0.5 x 0.5 x 0.1 cm. Postdebridement measurement is 3.1 x 3.5 x 0.1 cm. Post-Debridement Measurements and Additional Note: Post-Debridement Measurements/Treatment [place] - Nurse 1 - General Ulcer Assessment Start: 09/07/23 14:07 Freq: Status: Active Protocol: [facility] Activity Type Activity Date Activity User E-sign Co-sign Detail Recorded Client Recorded Date Recorded By Document 09/07/23 14:09 DL [id number] 09/07/23 14:15 DL 09/07/23 14:09 - Today's Visit Information Type of service Follow-up Visit (Physician/DESIGN ASSISTANT ) Arrival Mode Ambulatory, Walker Transfer Assistance None Patient Identification Verified (Name & Yes ) Patient Requires Transmission-Based No Precautions Vital Signs Temperature (97.8 F-99.1 F) 98.1 F Temperature Source Temporal Pulse Rate (60-100) 61 Pulse Location Monitor Respiratory Rate (12-18) 20 H Respiratory rate source Observation Blood Pressure (90/60-120/80) 152/62 H Blood Pressure Mean (mm Hg) 92 Source Monitor History Since Last Visit- (Skip if this is Patient's initial visit) Have you changed medications since your No last visit? Any new allergies or adverse reactions No Had a fall/change in ADL's that may No increase risk of falls Signs or symptoms of abuse and/or No neglect since last visit Have you been in the hospital since your No last visit? Has dressing in place as prescribed Yes Has compression in place as prescribed Yes Has offloadiing in place as prescribed N/A Experienced any changes in pain level or No management Left Footwear Removable Cast Walker/Walking Boot Right Footwear Regular Shoe Pain Scale: 0-10 Numeric Is Patient Pain Free? Yes WC - Nurse 1 - General Ulcer Measurement Start: 09/07/23 14:07 Freq: Status: Active Protocol: Activity Type Activity Date Activity User E-sign Co-sign Detail Recorded Client Recorded Date Recorded By Document 09/07/23 14:09 DL [email or web address] 09/07/23 14:15 DL 09/07/23 14:09 Wound Center Nurse 1 #4- L MED HEEL -Current Size (cm) - Length 0.6 -Current Size (cm) - Width 0.8 -Current Size (cm) - Depth 0.1 -Total Square Cm 0.48 -Exudate Amt Medium -Exudate Type Serosanguineous -Wound Margin Distinct, Outline Attached -Granulation Amt Small (1-33%) -Granulation Quality Red -Necrosis Amt None Present (0 %) -Structure Exposed N/A -Texture (Hannah-wound Skin Appearance) Scarring -Moisture (Hannah-wound Skin Appearance) No Abnormality -Color (Hannah-wound Skin Appearance) Hemosiderin Staining -Temperature (Hannah-wound Skin No Abnormality Appearance) (Pt Warm) -Ulcer Cleansing Soap and Water -Foul Odor after Cleansing No -Anesthetic Used 5% Lidocaine Gel Left Calf (cm) 49.1 Left Ankle (cm) 31.6 WC - Nurse 2 - General Ulcer CM Notes Start: 09/07/23 14:07 Freq: Status: Active Protocol: Activity Type Activity Date Activity User E-sign Co-sign Detail Recorded Client Recorded Date Recorded By Document 09/07/23 14:28 JF 0000 09/07/23 14:33 JF 09/07/23 14:28 Wound Center Nurse 2 #4- L MED HEEL -Time 14:30 -Correct Patient Yes -Correct Side, Site, Position Yes -Correct Procedure Yes -Procedure Performed Yes -Type of Procedure Debridement -Clinical Debridement Subcutaneous -Tissue Removed Subcutaneous -Post Debridement (cm) - Length 3.2 -Post Debridement (cm) - Width 1.9 -Post Debridement (cm) - Depth 0.1 -Total Square (Post) (cm) 6.08 -Area of Debridement (cm) - Length 3.2 -Area of Debridement (cm) - Width 1.9 -Total Square (Area) (cm) 6.08 -Tunneling No -Undermining/Tunneling No -Circular Undermining No -Wound/Ulcer Outcome Not Healed -Ulcer Cleansing Rinsed/ Irrigated with Saline -Foul Odor after Cleansing No -Bioengineered Tissue No -Bleeding Controlled with Pressure -Treatment Response Procedure Tolerated Well -Offloading No -Debridement - Subq, 1st 20sq cm Yes Pain Scale: 0-10 Numeric Is Patient Pain Free? Yes - Nurse 3 - General Ulcer D/C NN Start: 09/07/23 14:07 Freq: Status: Active Protocol: Activity Type Activity Date Activity User E-sign Co-sign Detail Recorded Client Recorded Date Recorded By Document 09/07/23 15:01 DL [email or web address] 09/07/23 15:02 DL 09/07/23 15:01 Wound Care Center Nurse 3 #4- L MED HEEL -Ulcer Cleansing Rinsed/ Irrigated with Saline -Foul Odor after Cleansing No -Other Dressing betadine -Primary Dressing Covered/Secured with Dry Gauze & Roll Gauze, Secured with Tape -Other Covering padding Left -Tubular Bandage Double Layer -Size of Tubigrip Used Size E -Size E ($) 2 Treatment Response Procedure Tolerated Well Pain Scale: 0-10 Numeric Is Patient Pain Free? Yes - Visit Discharge Discharge Condition Stable Ambulatory Status Ambulatory, Walker Transportation Private Auto Assessment/Plan Assessment/Plan (1) Non-pressure chronic ulcer of other part of left foot with fat layer exposed: CODE(S): L97.522 - Non-pressure chronic ulcer of other part of left foot with fat layer exposed PLAN: Patient was examined and evaluated. All findings were discussed with the patient. All questions were answered to the patient's satisfaction. Excisional debridement down to and including subcutaneous tissue with a number 3 mm dermal curette to the left medial heel of the left lower extremity without incident. Predebridement measurement is 0.5 x 0.5 x 0.1 cm. Postdebridement measurement is 3.1 x 3.5 x 0.1 cm. Left extremity were cleaned and patted dry. Sloppy Betadine soaked gauze was applied to the left medial heel followed by dry sterile dressing and compression wrap. Patient encouraged to use his mechanical pumps while at home. He was understanding of this. Encourage strict blood sugar control. Review of the patient's cultures show evidence of 2 bacterial growth. The patient will be placed on doxycycline 100 mg twice daily for 2 weeks. Patient will also be referred to infectious disease for consultation regarding antibiotic treatment and need for PICC line or further aggressive antibiotic treatment or not. Follow-up at the wound care center with Dr. Spann in 1 week. (2) Cellulitis of foot: CODE(S): L03.119 - Cellulitis of unspecified part of limb (3) Lymphedema, not elsewhere classified: CODE(S): I89.0 - Lymphedema, not elsewhere classified
[2023-09-14 14:39] VITALS: BP 150/112; PULSE 55; RESP 18; TEMP 35.8
--- NOTE | 2023-09-14 16:06 | PCM.WC.PN ---
History of Present Illness Date of Service: 09/14/23 Chief Complaint: Right foot ulcer History of Wound: This 76-year-old male with significant PMHx of diabetes type II with peripheral polyneuropathy, atrial fibrillation, hyperlipidemia, HTN, blindness, insomnia, history of acute renal failure, retinitis pigmentosa, Kaposi sarcoma right foot, and history of venous insufficiency with multiple procedural interventions was seen for right and left foot ulcer. Last seen by Dr. Moore, vascular specialist in 2020. Patient has not gone back for continued evaluation. Does have confirmed venous insufficiency of the great saphenous vein bilateral with bilateral lower extremity edema and lymphedema. He denies N/V/F/chills. He denies redness or odor to the foot bilateral. He is with his today. states that he had been following with Dr. Natalia Hernandez, [facility] in office following dispense of Sigvaris compression wrap and bilateral AFO braces made by [employer]. states that these braces have caused rubbing on the inside of the heel of both feet that had formed a blister and eventually broke open into a wound. States that they have not healed in the last month and Dr. Hernandez referred them to the wound care center for further evaluation. Subjective Subjective Mr. Renae is a 77-year-old diabetic male presenting to wound care center today for follow-up evaluation of full-thickness wound to the left medial aspect of the heel. I have been doing home dressing changes with sloppy Betadine soaked gauze dry sterile dressing and compression wraps. Patient has kept a strict blood sugar control. Denies trauma. Denies constitutional symptoms. No other complaints at this time. Objective Data Objective Data Vital Signs: Vital Signs Temp Pulse Resp BP O2 Del Method 96.5 F L 55 L 18 150/112 H Room Air 09/14/23 14:39 09/14/23 14:39 09/14/23 14:39 09/14/23 14:39 09/14/23 14:39 Oxygen Delivery Method Room Air Physical Exam Narrative Vascular: DP and PT pulses are palpable. CFT is brisk. +1 pitting edema appreciated to bilateral lower extremity. Evidence of blanchable erythema appreciated to the bilateral legs. Neurological: Light touch intact. Protective sensation is absent. Patient does not respond to painful stimuli. Dermatological: Full-thickness ulceration to left medial heel measuring 1.9 x 1.5 x 0.1 cm. Evidence of green this colorization to the periwound. No drainage. No erythema or proximal streaking. Excisional debridement down to and including subcutaneous tissue with a number 3 mm dermal curette to the left medial heel of the left lower extremity without incident. Predebridement measurement is 0.5 x 0.5 x 0.1 cm. Postdebridement measurement is 1.9 x 1.5 x 0.1 cm. Musculoskeletal: No pain on palpation to the full-thickness ulceration. Pain with calf compression. Debridement Note Debridement Note Debridement Free Text: Excisional debridement down to and including subcutaneous tissue with a number 3 mm dermal curette to the left medial heel of the left lower extremity without incident. Predebridement measurement is 0.5 x 0.5 x 0.1 cm. Postdebridement measurement is 1.9 x 1.5 x 0.1 cm. Post-Debridement Measurements and Additional Note: Post-Debridement Measurements/Treatment - Nurse 1 - General Ulcer Assessment Start: 09/07/23 14:07 Freq: Status: Active Protocol: WC.LOWFABRIZIOT Activity Type Activity Date Activity User E-sign Co-sign Detail Recorded Client Recorded Date Recorded By Document 09/07/23 14:09 DL [id number] 09/07/23 14:15 DL Document 09/14/23 14:39 KW l 09/14/23 14:44 KW 09/07/23 09/14/23 14:09 14:39 - Today's Visit Information Type of service Follow-up Visit Follow-up Visit (Physician/CLINICAL EDUCATION ASSISTANT (Physician/CLINICAL EDUCATION ASSISTANT ) ) Arrival Mode Ambulatory, Ambulatory, Walker Walker Transfer Assistance None Patient Identification Verified (Name & Yes Yes ) Patient Requires Transmission-Based No Precautions Vital Signs Temperature (97.8 F-99.1 F) 98.1 F 96.5 F L Temperature Source Temporal Temporal Pulse Rate (60-100) 61 55 L Pulse Location Monitor Monitor Respiratory Rate (12-18) 20 H 18 Respiratory rate source Observation Observation Oxygen Delivery Method Room Air Blood Pressure (90/60-120/80) 152/62 H 150/112 H Blood Pressure Mean (mm Hg) 92 124 Source Monitor Monitor Position Semi-Fowlers Blood Pressure Location Left Arm History Since Last Visit- (Skip if this is Patient's initial visit) Have you changed medications since your No No last visit? Any new allergies or adverse reactions No No Had a fall/change in ADL's that may No No increase risk of falls Signs or symptoms of abuse and/or No No neglect since last visit Have you been in the hospital since your No No last visit? Has dressing in place as prescribed Yes Yes Has compression in place as prescribed Yes Yes Has offloadiing in place as prescribed N/A Yes Experienced any changes in pain level or No No management Left Footwear Removable Cast Regular Shoe Walker/Walking Boot Right Footwear Regular Shoe Regular Shoe Pain Scale: 0-10 Numeric Is Patient Pain Free? Yes Yes WC - Nurse 1 - General Ulcer Measurement Start: 09/07/23 14:07 Freq: Status: Active Protocol: Activity Type Activity Date Activity User E-sign Co-sign Detail Recorded Client Recorded Date Recorded By Document 09/07/23 14:09 DL [email or web address] 09/07/23 14:15 DL Document 09/14/23 14:39 KW l 09/14/23 14:44 KW 09/07/23 09/14/23 14:09 14:39 Wound Center Nurse 1 #4- L MED HEEL -Current Size (cm) - Length 0.6 1.8 -Current Size (cm) - Width 0.8 2.2 -Current Size (cm) - Depth 0.1 0.1 -Total Square Cm 0.48 3.96 -Exudate Amt Medium Medium -Exudate Type Serosanguineous Serosanguineous -Wound Margin Distinct, Distinct, Outline Outline Attached Attached -Granulation Amt Small (1-33%) Large (67-100%) -Granulation Quality Red Crumpler -Necrosis Amt None Present (0 Small (1-33%) %) -Necrotic Tissue Type Adherent Slough -Structure Exposed N/A -Texture (Hannah-wound Skin Appearance) Scarring Assessed -Moisture (Hannah-wound Skin Appearance) No Abnormality Assessed, Maceration -Color (Hannah-wound Skin Appearance) Hemosiderin Assessed Staining -Temperature (Hannah-wound Skin No Abnormality No Abnormality Appearance) (Pt Warm) (Pt Warm) -Tenderness on Palpation (Hannah-wound No Skin Appearance) -Ulcer Cleansing Soap and Water Rinsed/ Irrigated with Saline -Foul Odor after Cleansing No No -Anesthetic Used 5% Lidocaine 5% Lidocaine Gel Gel Left Calf (cm) 49.1 54 Left Ankle (cm) 31.6 32.2 - Nurse 2 - General Ulcer CM Notes Start: 09/07/23 14:07 Freq: Status: Active Protocol: Activity Type Activity Date Activity User E-sign Co-sign Detail Recorded Client Recorded Date Recorded By Document 09/07/23 14:28 0000 09/07/23 14:33 Document 09/14/23 14:57 JF 000 09/14/23 14:58 JF 09/07/23 09/14/23 14:28 14:57 Wound Center Nurse 2 #4- L MED HEEL -Time 14:30 14:58 -Correct Patient Yes Yes -Correct Side, Site, Position Yes Yes -Correct Procedure Yes Yes -Procedure Performed Yes Yes -Type of Procedure Debridement Debridement -Clinical Debridement Subcutaneous Subcutaneous -Tissue Removed Subcutaneous Subcutaneous -Post Debridement (cm) - Length 3.2 1.9 -Post Debridement (cm) - Width 1.9 1.5 -Post Debridement (cm) - Depth 0.1 0.1 -Total Square (Post) (cm) 6.08 2.85 -Area of Debridement (cm) - Length 3.2 1.9 -Area of Debridement (cm) - Width 1.9 1.5 -Total Square (Area) (cm) 6.08 2.85 -Tunneling No No -Undermining/Tunneling No No -Circular Undermining No No -Wound/Ulcer Outcome Not Healed Not Healed -Ulcer Cleansing Rinsed/ Rinsed/ Irrigated with Irrigated with Saline Saline -Foul Odor after Cleansing No No -Bioengineered Tissue No No -Bleeding Controlled with Pressure Pressure -Treatment Response Procedure Procedure Tolerated Well Tolerated Well -Offloading No No -Debridement - Subq, 1st 20sq cm Yes Yes Pain Scale: 0-10 Numeric Is Patient Pain Free? Yes Yes - Nurse 3 - General Ulcer D/C NN Start: 09/07/23 14:07 Freq: Status: Active Protocol: Activity Type Activity Date Activity User E-sign Co-sign Detail Recorded Client Recorded Date Recorded By Document 09/07/23 15:01 DL 10..25.7 09/07/23 15:02 DL Document 09/14/23 15:32 DL [email or web address] 09/14/23 15:33 DL 09/07/23 09/14/23 15:01 15:32 Wound Care Center Nurse 3 #4- L MED HEEL -Ulcer Cleansing Rinsed/ Rinsed/ Irrigated with Irrigated with Saline Saline -Foul Odor after Cleansing No No -Other Dressing betadine betadine -Primary Dressing Covered/Secured with Dry Gauze & Dry Gauze,Dry Roll Gauze, Gauze & Roll Secured with Gauze,Secured Tape with Tape -Other Covering padding Left -Tubular Bandage Double Layer Double Layer -Size of Tubigrip Used Size E Size F -Size E ($) 2 -Size F ($) 2 Treatment Response Procedure Procedure Tolerated Well Tolerated Well Pain Scale: 0-10 Numeric Is Patient Pain Free? Yes Yes WC - Visit Discharge Discharge Condition Stable Stable Ambulatory Status Ambulatory, Ambulatory, Walker Walker Transportation Private Auto Private Auto Assessment/Plan Assessment/Plan (1) Non-pressure chronic ulcer of other part of left foot with fat layer exposed: CODE(S): L97.522 - Non-pressure chronic ulcer of other part of left foot with fat layer exposed PLAN: Patient was examined and evaluated. All findings were discussed with the patient. All questions were answered to the patient's satisfaction. Excisional debridement down to and including subcutaneous tissue with a number 3 mm dermal curette to the left medial heel of the left lower extremity without incident. Predebridement measurement is 0.5 x 0.5 x 0.1 cm. Postdebridement measurement is 1.9 x 1.5 x 0.1 cm. Right lower extremities were cleaned and patted dry. Betadine soaked gauze was applied to the medial left heel wound followed by dry sterile dressing and compression wrap. Patient was seen by infectious disease reviewed the patient's cultures and recommended Augmentin with continued doxycycline which the patient is currently taking. We will also authorize for the patient's insurance and MRI to the left heel to rule out any deep-seated infection and intervene if necessary. Recommendations for possible PICC line was discussed with the patient with infectious disease at bedside. Treatment to follow after MRI if needed. Follow-up at the wound care center with Dr. Spann in 1 week. (2) Lymphedema, not elsewhere classified: CODE(S): I89.0 - Lymphedema, not elsewhere classified
--- NOTE | 2023-09-28 13:36 | PCM.WC.PN ---
History of Present Illness Date of Service: 09/28/23 Chief Complaint: Right foot ulcer History of Wound: This 76-year-old male with significant PMHx of diabetes type II with peripheral polyneuropathy, atrial fibrillation, hyperlipidemia, HTN, blindness, insomnia, history of acute renal failure, retinitis pigmentosa, Kaposi sarcoma right foot, and history of venous insufficiency with multiple procedural interventions was seen for right and left foot ulcer. Last seen by Dr. Moore, vascular specialist in 2020. Patient has not gone back for continued evaluation. Does have confirmed venous insufficiency of the great saphenous vein bilateral with bilateral lower extremity edema and lymphedema. He denies N/V/F/chills. He denies redness or odor to the foot bilateral. He is with his today. states that he had been following with Dr. Natalia Hernandez, [facility] in office following dispense of Sigvaris compression wrap and bilateral AFO braces made by [employer]. states that these braces have caused rubbing on the inside of the heel of both feet that had formed a blister and eventually broke open into a wound. States that they have not healed in the last month and Dr. Hernandez referred them to the wound care center for further evaluation. Subjective Subjective Mr. Renae is a 77-year-old male presenting to the wound care center today for follow-up evaluation of left heel wound. Patient did receive his MRI to the left lower extremity. He has been taking his antibiotics as discussed with infectious disease. He has been compliant with dressing changes and weightbearing as tolerated to the bilateral lower extremity. Blood sugar under control. Denies trauma. Denies constitutional symptoms. No other complaints at this time. Objective Data Objective Data Vital Signs: Vital Signs Temp Pulse Resp BP O2 Del Method 96.5 F L 55 L 18 150/112 H Room Air 09/14/23 14:39 09/14/23 14:39 09/14/23 14:39 09/14/23 14:39 09/14/23 14:39 Oxygen Delivery Method Room Air Physical Exam Narrative Vascular: DP and PT pulses are palpable. CFT is brisk. +1 pitting edema appreciated to bilateral lower extremity. Evidence of blanchable erythema appreciated to the bilateral legs. Neurological: Light touch intact. Protective sensation is absent. Patient does not respond to painful stimuli. Dermatological: Full-thickness ulceration to left medial heel measuring 1.5 x 1.4 x 0.1 cm. Green discoloration has improved. Periwound maceration. No erythema or proximal streaking. Excisional debridement down to and including subcutaneous tissue with a number 3 mm dermal curette to the left medial heel of the left lower extremity without incident. Predebridement measurement is 1.3 x 1.2 x 0.1 cm. Postdebridement measurement is 1.5 x 1.4 x 0.1 cm. Musculoskeletal: No pain on palpation to the full-thickness ulceration. Pain with calf compression. Debridement Note Debridement Note Debridement Free Text: Excisional debridement down to and including subcutaneous tissue with a number 3 mm dermal curette to the left medial heel of the left lower extremity without incident. Predebridement measurement is 1.3 x 1.2 x 0.1 cm. Postdebridement measurement is 1.5 x 1.4 x 0.1 cm. 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 ) ) Arrival Mode Ambulatory, Ambulatory, Walker Walker Transfer Assistance None Patient Identification Verified (Name & Yes Yes ) Patient Requires Transmission-Based No Precautions Vital Signs Temperature (97.8 F-99.1 F) 98.1 F 96.5 F L Temperature Source Temporal Temporal Pulse Rate (60-100) 61 55 L Pulse Location Monitor Monitor Respiratory Rate (12-18) 20 H 18 Respiratory rate source Observation Observation Oxygen Delivery Method Room Air Blood Pressure (90/60-120/80) 152/62 H 150/112 H Blood Pressure Mean (mm Hg) 92 124 Source Monitor Monitor Position Semi-Fowlers Blood Pressure Location Left Arm History Since Last Visit- (Skip if this is Patient's initial visit) Have you changed medications since your No No last visit? Any new allergies or adverse reactions No No Had a fall/change in ADL's that may No No increase risk of falls Signs or symptoms of abuse and/or No No neglect since last visit Have you been in the hospital since your No No last visit? Has dressing in place as prescribed Yes Yes Has compression in place as prescribed Yes Yes Has offloadiing in place as prescribed N/A Yes Experienced any changes in pain level or No No management Left Footwear Removable Cast Regular Shoe Walker/Walking Boot Right Footwear Regular Shoe Regular Shoe Pain Scale: 0-10 Numeric Is Patient Pain Free? Yes Yes WC - Nurse 1 - General Ulcer Measurement Start: 09/07/23 14:07 Freq: Status: Active Protocol: Activity Type Activity Date Activity User E-sign Co-sign Detail Recorded Client Recorded Date Recorded By Document 09/07/23 14:09 DL [email or web address] 09/07/23 14:15 DL Document 09/14/23 14:39 KW l 09/14/23 14:44 KW 09/07/23 09/14/23 14:09 14:39 Wound Center Nurse 1 #4- L MED HEEL -Current Size (cm) - Length 0.6 1.8 -Current Size (cm) - Width 0.8 2.2 -Current Size (cm) - Depth 0.1 0.1 -Total Square Cm 0.48 3.96 -Exudate Amt Medium Medium -Exudate Type Serosanguineous Serosanguineous -Wound Margin Distinct, Distinct, Outline Outline Attached Attached -Granulation Amt Small (1-33%) Large (67-100%) -Granulation Quality [place] -Necrosis Amt None Present (0 Small (1-33%) %) -Necrotic Tissue Type Adherent Slough -Structure Exposed N/A -Texture (Hannah-wound Skin Appearance) Scarring Assessed -Moisture (Hannah-wound Skin Appearance) No Abnormality Assessed, Maceration -Color (Hannah-wound Skin Appearance) Hemosiderin Assessed Staining -Temperature (Hannah-wound Skin No Abnormality No Abnormality Appearance) (Pt Warm) (Pt Warm) -Tenderness on Palpation (Hannah-wound No Skin Appearance) -Ulcer Cleansing Soap and Water Rinsed/ Irrigated with Saline -Foul Odor after Cleansing No No -Anesthetic Used 5% Lidocaine 5% Lidocaine Gel Gel Left Calf (cm) 49.1 54 Left Ankle (cm) 31.6 32.2 - Nurse 2 - General Ulcer CM Notes Start: 09/07/23 14:07 Freq: Status: Active Protocol: Activity Type Activity Date Activity User E-sign Co-sign Detail Recorded Client Recorded Date Recorded By Document 09/07/23 14:28 JF 0000 09/07/23 14:33 JF Document 09/14/23 14:57 JF 000 09/14/23 14:58 JF 09/07/23 09/14/23 14:28 14:57 Wound Center Nurse 2 #4- L MED HEEL -Time 14:30 14:58 -Correct Patient Yes Yes -Correct Side, Site, Position Yes Yes -Correct Procedure Yes Yes -Procedure Performed Yes Yes -Type of Procedure Debridement Debridement -Clinical Debridement Subcutaneous Subcutaneous -Tissue Removed Subcutaneous Subcutaneous -Post Debridement (cm) - Length 3.2 1.9 -Post Debridement (cm) - Width 1.9 1.5 -Post Debridement (cm) - Depth 0.1 0.1 -Total Square (Post) (cm) 6.08 2.85 -Area of Debridement (cm) - Length 3.2 1.9 -Area of Debridement (cm) - Width 1.9 1.5 -Total Square (Area) (cm) 6.08 2.85 -Tunneling No No -Undermining/Tunneling No No -Circular Undermining No No -Wound/Ulcer Outcome Not Healed Not Healed -Ulcer Cleansing Rinsed/ Rinsed/ Irrigated with Irrigated with Saline Saline -Foul Odor after Cleansing No No -Bioengineered Tissue No No -Bleeding Controlled with Pressure Pressure -Treatment Response Procedure Procedure Tolerated Well Tolerated Well -Offloading No No -Debridement - Subq, 1st 20sq cm Yes Yes Pain Scale: 0-10 Numeric Is Patient Pain Free? Yes Yes - Nurse 3 - General Ulcer D/C NN Start: 09/07/23 14:07 Freq: Status: Active Protocol: Activity Type Activity Date Activity User E-sign Co-sign Detail Recorded Client Recorded Date Recorded By Document 09/07/23 15:01 DL [email or web address] 09/07/23 15:02 DL Document 09/14/23 15:32 DL [email or web address] 09/14/23 15:33 DL 09/07/23 09/14/23 15:01 15:32 Wound Care Center Nurse 3 #4- L MED HEEL -Ulcer Cleansing Rinsed/ Rinsed/ Irrigated with Irrigated with Saline Saline -Foul Odor after Cleansing No No -Other Dressing betadine betadine -Primary Dressing Covered/Secured with Dry Gauze & Dry Gauze,Dry Roll Gauze, Gauze & Roll Secured with Gauze,Secured Tape with Tape -Other Covering padding Left -Tubular Bandage Double Layer Double Layer -Size of Tubigrip Used Size E Size F -Size E ($) 2 -Size F ($) 2 Treatment Response Procedure Procedure Tolerated Well Tolerated Well Pain Scale: 0-10 Numeric Is Patient Pain Free? Yes Yes WC - Visit Discharge Discharge Condition Stable Stable Ambulatory Status Ambulatory, Ambulatory, Walker Walker Transportation Private Auto Private Auto Assessment/Plan Assessment/Plan (1) Non-pressure chronic ulcer of other part of left foot with fat layer exposed: CODE(S): L97.522 - Non-pressure chronic ulcer of other part of left foot with fat layer exposed PLAN: Patient was examined and evaluated. All findings were discussed with the patient. All questions were answered to the patient's satisfaction. Excisional debridement down to and including subcutaneous tissue with a number 3 mm dermal curette to the left medial heel of the left lower extremity without incident. Predebridement measurement is 1.3 x 1.2 x 0.1 cm. Postdebridement measurement is 1.5 x 1.4 x 0.1 cm. Left lower extremities are clean and patted dry. Betadine soaked gauze was applied to the medial heel followed by dry sterile dressing and compression wrap. Educated the patient on the need for mechanical pumping while at home up to 3 times per week which she is understanding of. Patient will continue strict blood sugar control. Review of the patient's MRI show evidence of a phlegmonous pocket deep to a superficial skin ulcer seen on the medial side of the posterior aspect of the calcaneus. This is agreeable with the patient's full-thickness wound as this will be a potential area of continued drainage due to the possible unhealing aspect of the deep tissue from previous ulcerations. Plan will be to take the patient the operating room to perform an incision and drainage and remove the deep tissue and allow the wound to granulate in by secondary intention and possibly graft application while in the wound care center to left extremity. Risk and benefit assessed with patient great detail. Patient would like to move forward with surgical intervention once cleared medically. Follow-up at the wound care center with Dr. Spann in 1 week. (2) Peripheral vascular disease: CODE(S): I73.9 - Peripheral vascular disease, unspecified (3) Cellulitis of foot: CODE(S): L03.119 - Cellulitis of unspecified part of limb (4) Lymphedema, not elsewhere classified: CODE(S): I89.0 - Lymphedema, not elsewhere classified
[2023-09-28 13:45] VITALS: BP 150/73; PULSE 53; RESP 16; TEMP 36.1
== END 2023-10-05 23:59 | disposition home or self-care (01) ==
LOC: WC 13:15
PROVIDERS: PCP Internal Medicine; Referring Provider Podiatrist Foot & Ankle Surgery; Visit Provider Podiatrist Foot & Ankle Surgery
DX: E11.621 Type 2 diabetes mellitus with foot ulcer (principal); L97.422 Non-pressure chronic ulcer of left heel and midfoot with fat layer exposed; I48.91 Unspecified atrial fibrillation; E11.42 Type 2 diabetes mellitus with diabetic polyneuropathy; Z79.4 Long term (current) use of insulin; E11.51 Type 2 diabetes mellitus with diabetic peripheral angiopathy without gangrene; I10 Essential (primary) hypertension; L03.116 Cellulitis of left lower limb; G47.00 Insomnia, unspecified; E78.5 Hyperlipidemia, unspecified; H54.7 Unspecified visual loss; R60.0 Localized edema; I87.2 Venous insufficiency (chronic) (peripheral); I89.0 Lymphedema, not elsewhere classified; Z79.02 Long term (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 of antithrombotics/antiplatelets; Z79.890 Hormone replacement therapy; Z79.899 Other long term (current) drug therapy
CPT/HCPCS: 11042

== ENCOUNTER 2023-10-19 14:00 | Outpatient (RCR) | payer MEDICARE, OTHER, SELFPAY ==
[2023-10-06 00:24] VITALS: BP 146/75; PULSE 63; RESP 18; TEMP 35.9
--- NOTE | 2023-10-06 11:24 | WC ---
Patient's called 10/05/23 afternoon letting us know they cancelled due to his right knee causing problems with ambulation. They had to cancel his ID appointment also. Rescheduled with Dr lovell in 2 weeks. Janey, spouse, stated that his ulcer to left heel looks more raw and bigger in size. She doesn't feel it looks infected. No redness or warmth or increase drainage at this time. Applying daily betadine to the area. He is finished with his antibiotic and will let DR Spann know in case he wants him to be covered with ATB's until his ID appt. Express concern to Janey that if Manjinder's ulcer get worse to report to the ER and to have Dr Spann consulted. She will also continue to watch his right knee and notify their PCP or ortho if s/s of infection appears since he has a history of an infection to this knee. Message sent to Dr Spann on update via Back[employer].
[2023-10-12 14:51] VITALS: BP 123/66; PULSE 63; RESP 18; TEMP 36.7
--- NOTE | 2023-10-12 16:38 | PCM.WC.PN ---
History of Present Illness Date of Service: 10/12/23 Chief Complaint: Right foot ulcer History of Wound: This 76-year-old male with significant PMHx of diabetes type II with peripheral polyneuropathy, atrial fibrillation, hyperlipidemia, HTN, blindness, insomnia, history of acute renal failure, retinitis pigmentosa, Kaposi sarcoma right foot, and history of venous insufficiency with multiple procedural interventions was seen for right and left foot ulcer. Last seen by Dr. Moore, vascular specialist in 2020. Patient has not gone back for continued evaluation. Does have confirmed venous insufficiency of the great saphenous vein bilateral with bilateral lower extremity edema and lymphedema. He denies N/V/F/chills. He denies redness or odor to the foot bilateral. He is with his today. states that he had been following with Dr. Natalia Hernandez, [facility]ura in office following dispense of Sigvaris compression wrap and bilateral AFO braces made by [employer]. states that these braces have caused rubbing on the inside of the heel of both feet that had formed a blister and eventually broke open into a wound. States that they have not healed in the last month and Dr. Hernandez referred them to the wound care center for further evaluation. Subjective Subjective Mr. Renae is a 77-year-old diabetic male presenting with her son today follow-up evaluation of left medial heel ulceration. Patient's has been compliant with dressing changes. She admits to maceration. He missed his appointment last week secondary to weak knees and potential for falling. He presents today for evaluation as well as to see infectious disease. He has been compliant with his multilayer compression bandage. Denies trauma. Denies constitutional symptoms. No other pedal complaints at this time. Objective Data Objective Data Vital Signs: Vital Signs Temp Pulse Resp BP O2 Del Method 98.0 F 63 18 123/66 H Room Air 10/12/23 14:51 10/12/23 14:51 10/12/23 14:51 10/12/23 14:51 10/12/23 14:51 Oxygen Delivery Method Room Air Physical Exam Narrative Vascular: DP and PT pulses are palpable. CFT is brisk. +1 pitting edema appreciated to bilateral lower extremity. Evidence of blanchable erythema appreciated to the bilateral legs. Neurological: Light touch intact. Protective sensation is absent. Patient does not respond to painful stimuli. Dermatological: Full-thickness ulceration to left medial heel measuring 3.0 x 2.5 x 0.1 cm. Green discoloration has improved. Periwound maceration. Blanchable erythema without proximal streaking. Excisional debridement down to and including subcutaneous tissue with a number 3 mm dermal curette to the left medial heel of the left lower extremity without incident. Predebridement measurement is 2.5 x 2.0 x 0.1 cm. Postdebridement measurement is 3.0 x 2.5 x 0.1 cm. Musculoskeletal: No pain on palpation to the full-thickness ulceration. Pain with calf compression. Debridement Note Debridement Note Debridement Free Text: Excisional debridement down to and including subcutaneous tissue with a number 3 mm dermal curette to the left medial heel of the left lower extremity without incident. Predebridement measurement is 2.5 x 2.0 x 0.1 cm. Postdebridement measurement is 3.0 x 2.5 x 0.1 cm. 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 Any new allergies or adverse reactions No Had a fall/change in ADL's that may No increase risk of falls Signs or symptoms of abuse and/or No neglect since last visit Have you been in the hospital since your No last visit? Has dressing in place as prescribed Yes Has compression in place as prescribed Yes Has offloadiing in place as prescribed N/A Experienced any changes in pain level or No management Left Footwear Regular Shoe Right Footwear Regular Shoe Pain Scale: 0-10 Numeric Is Patient Pain Free? Yes - Nurse 1 - General Ulcer Measurement Start: 10/12/23 14:44 Freq: Status: Active Protocol: Activity Type Activity Date Activity User E-sign Co-sign Detail Recorded Client Recorded Date Recorded By Document 10/12/23 14:51 KW fcg 10/12/23 15:02 KW 10/12/23 14:51 Wound Center Nurse 1 #4- L MED HEEL -Current Size (cm) - Length 4 -Current Size (cm) - Width 3.8 -Current Size (cm) - Depth 0.2 -Total Square Cm 15.2 -Date of Last Picture (Recall this 10/12/23 field) -Exudate Amt Large -Exudate Type Yellow/Green -Wound Margin Distinct, Outline Attached -Granulation Amt Medium (34-66%) -Granulation Quality [place] -Necrosis Amt Medium (34-66%) -Necrotic Tissue Type Adherent Slough -Texture (Hannah-wound Skin Appearance) Assessed -Moisture (Hannah-wound Skin Appearance) Assessed, Maceration -Color (Hannah-wound Skin Appearance) Assessed, Erythema -Temperature (Hannah-wound Skin No Abnormality Appearance) (Pt Warm) -Tenderness on Palpation (Hannah-wound No Skin Appearance) -Ulcer Cleansing Rinsed/ Irrigated with Saline -Foul Odor after Cleansing No -Anesthetic Used 5% Lidocaine Gel - Nurse 2 - General Ulcer CM Notes Start: 10/12/23 14:44 Freq: Status: Active Protocol: Activity Type Activity Date Activity User E-sign Co-sign Detail Recorded Client Recorded Date Recorded By Document 10/12/23 15:05 JF 000 10/12/23 15:09 JF 10/12/23 15:05 Wound Center Nurse 2 -Time 15:08 -Correct Patient Yes -Correct Side, Site, Position Yes -Correct Procedure Yes -Procedure Performed Yes -Type of Procedure Debridement -Clinical Debridement Subcutaneous -Tissue Removed Subcutaneous -Post Debridement (cm) - Length 3.0 -Post Debridement (cm) - Width 2.5 -Post Debridement (cm) - Depth 0.1 -Total Square (Post) (cm) 7.50 -Area of Debridement (cm) - Length 3.0 -Area of Debridement (cm) - Width 2.5 -Total Square (Area) (cm) 7.50 -Tunneling No -Undermining/Tunneling No -Circular Undermining No -Wound/Ulcer Outcome Not Healed -Ulcer Cleansing Rinsed/ Irrigated with Saline -Foul Odor after Cleansing No -Bioengineered Tissue No -Bleeding Controlled with Pressure -Treatment Response Procedure Tolerated Well -Offloading No -Debridement - Subq, 1st 20sq cm Yes Pain Scale: 0-10 Numeric Is Patient Pain Free? Yes - Nurse 3 - General Ulcer D/C NN Start: 10/12/23 14:44 Freq: Status: Active Protocol: Activity Type Activity Date Activity User E-sign Co-sign Detail Recorded Client Recorded Date Recorded By Document 10/12/23 15:33 KW fcg 10/12/23 15:35 KW 10/12/23 15:33 Wound Care Center Nurse 3 #4- L MED HEEL -Primary Dressing Applied [place] -Primary Dressing Covered/Secured with Dry Gauze & Roll Gauze, Secured with Tape -[place] 1 Left -Tubular Bandage Double Layer -Size of Tubigrip Used Size F -Size F ($) 2 Pain Scale: 0-10 Numeric Is Patient Pain Free? Yes WC - Visit Discharge Discharge Condition Stable Ambulatory Status Ambulatory, Walker Transportation Private Auto Medication Reconcilliation completed & No provided to patient/care provider Clinical Summary of Care Provided Yes Assessment/Plan Assessment/Plan (1) Non-pressure chronic ulcer of other part of left foot with fat layer exposed: CODE(S): L97.522 - Non-pressure chronic ulcer of other part of left foot with fat layer exposed PLAN: Patient was examined and evaluated. All findings were discussed with the patient. All questions were answered to the patient's satisfaction. Excisional debridement down to and including subcutaneous tissue with a number 3 mm dermal curette to the left medial heel of the left lower extremity without incident. Predebridement measurement is 2.5 x 2.0 x 0.1 cm. Postdebridement measurement is 3.0 x 2.5 x 0.1 cm. The left heel was dressed with silver alginate, dry sterile dressing and multilayer compression bandage was applied to left lower extremity. Patient was educated to pump to bilateral lower extremity with his mechanical pumps. Will begin authorization through the patient's insurance to take the patient to the operating room to remove the flabella that is deep in the superficial subcutaneous tissue of the left heel. Follow-up at the wound care center with Dr. Spann in 1 week. (2) Peripheral vascular disease: CODE(S): I73.9 - Peripheral vascular disease, unspecified (3) Lymphedema, not elsewhere classified: CODE(S): I89.0 - Lymphedema, not elsewhere classified
[2023-10-19 14:51] VITALS: BP 145/70; PULSE 65; RESP 18; TEMP 36
--- NOTE | 2023-10-19 17:01 | PN.PCM_ITS ---
History of Present Illness Date of Service: 10/19/23 Chief Complaint: Right foot ulcer History of Wound: This 76-year-old male with significant PMHx of diabetes type II with peripheral polyneuropathy, atrial fibrillation, hyperlipidemia, HTN, blindness, insomnia, history of acute renal failure, retinitis pigmentosa, Kaposi sarcoma right foot, and history of venous insufficiency with multiple procedural interventions was seen for right and left foot ulcer. Last seen by Dr. Moore, vascular specialist in 2020. Patient has not gone back for continued evaluation. Does have confirmed venous insufficiency of the great saphenous vein bilateral with bilateral lower extremity edema and lymphedema. He denies N/V/F/chills. He denies redness or odor to the foot bilateral. He is with his today. states that he had been following with Dr. Natalia Hernandez, [facility].P.Aura in office following dispense of Sigvaris compression wrap and bilateral AFO braces made by [employer]. states that these braces have caused rubbing on the inside of the heel of both feet that had formed a blister and eventually broke open into a wound. States that they have not healed in the last month and Dr. Hernandez referred them to the wound care center for further evaluation. Subjective Subjective Mr. Renae is a 77-year-old male presented wound care center today for follow-up evaluation of full-thickness wound to the left lower extremity. Patient is also seeing infectious disease while at the wound care center today. Patient has been compliant with dressing changes to the left heel consisting of Betadine soaked gauze dry sterile dressing and multilayer compression bandage. Patient's who does her dressing changes states that his heel is more macerated than previous she is concerned that the infection is getting worse. She denies any trauma or falls. Denies constitutional symptoms. No other pedal complaints at this time. Objective Data Objective Data Vital Signs: Vital Signs Temp Pulse Resp BP O2 Del Method 96.8 F L 65 18 145/70 H Room Air 10/19/23 14:51 10/19/23 14:51 10/19/23 14:51 10/19/23 14:51 10/19/23 14:51 Oxygen Delivery Method Room Air Physical Exam Narrative Vascular: DP and PT pulse are palpable. CFT is brisk. +1 pitting edema appreciated bilateral lower extremity. Evidence of blanchable erythema as well as maceration to the left heel. Neurological: Light touch is intact. Protective station is absent. Dermatological: Full-thickness ulceration appreciated to the left medial heel. Evidence of diffuse heel maceration with green this colorization. Serous drainage and mild malodor is appreciated. No erythema or proximal streaking is noted. Musculoskeletal: Mild pain to palpation to the medial left heel. No pain with calf pressure. Debridement Note Debridement Note Post-Debridement Measurements and Additional Note: Post-Debridement Measurements/Treatment - Nurse 1 - General Ulcer Assessment Start: 10/12/23 14:44 Freq: Status: Active Protocol: WC.LOWEXT Activity Type Activity Date Activity User E-sign Co-sign Detail Recorded Client Recorded Date Recorded By Document 10/12/23 14:51 KW fcg 10/12/23 15:02 KW Document 10/19/23 14:51 KW asfd 10/19/23 14:56 KW 10/12/23 10/19/23 14:51 14:51 - Today's Visit Information Type of service Follow-up Visit Follow-up Visit (Physician/[employer]SEM[employer] (Physician/ASSEM[employer] ) ) Arrival Mode Ambulatory, Ambulatory, Walker Walker Patient Identification Verified (Name & Yes Yes ) Vital Signs Temperature (97.8 F-99.1 F) 98.0 F 96.8 F L Temperature Source Temporal Temporal Pulse Rate (60-100) 63 65 Pulse Location Monitor Monitor Respiratory Rate (12-18) 18 18 Respiratory rate source Observation Observation Oxygen Delivery Method Room Air Room Air Blood Pressure (90/60-120/80) 123/66 H 145/70 H Blood Pressure Mean (mm Hg) 85 95 Source Monitor Monitor Position Semi-Fowlers Semi-Fowlers Blood Pressure Location Right Arm Left Arm History Since Last Visit- (Skip if this is Patient's initial visit) Have you changed medications since your No No last visit? Any new allergies or adverse reactions No No Had a fall/change in ADL's that may No No increase risk of falls Signs or symptoms of abuse and/or No No neglect since last visit Have you been in the hospital since your No No last visit? Has dressing in place as prescribed Yes Yes Has compression in place as prescribed Yes Yes Has offloadiing in place as prescribed N/A N/A Experienced any changes in pain level or No No management Left Footwear Regular Shoe Regular Shoe Right Footwear Regular Shoe Regular Shoe Pain Scale: 0-10 Numeric Is Patient Pain Free? Yes Yes WC - Nurse 1 - General Ulcer Measurement Start: 10/12/23 14:44 Freq: Status: Active Protocol: Activity Type Activity Date Activity User E-sign Co-sign Detail Recorded Client Recorded Date Recorded By Document 10/12/23 14:51 KW fcg 10/12/23 15:02 KW Document 10/19/23 14:51 KW asfd 10/19/23 14:56 KW 10/12/23 10/19/23 14:51 14:51 Wound Center Nurse 1 #4- L MED HEEL -Current Size (cm) - Length 4 4 -Current Size (cm) - Width 3.8 4.2 -Current Size (cm) - Depth 0.2 0.1 -Total Square Cm 15.2 16.8 -Date of Last Picture (Recall this 10/12/23 field) -Exudate Amt Large Large -Exudate Type Yellow/Green Yellow/Green -Wound Margin Distinct, Distinct, Outline Outline Attached Attached -Granulation Amt Medium (34-66%) Large (67-100%) -Granulation Quality Peetz Peetz,Red -Necrosis Amt Medium (34-66%) -Necrotic Tissue Type Adherent Slough -Texture (Hannah-wound Skin Appearance) Assessed Assessed -Moisture (Hannah-wound Skin Appearance) Assessed, Assessed, Maceration Maceration -Color (Hannah-wound Skin Appearance) Assessed, Assessed Erythema -Temperature (Hannah-wound Skin No Abnormality Appearance) (Pt Warm) -Tenderness on Palpation (Hannah-wound No Skin Appearance) -Ulcer Cleansing Rinsed/ Soap and Water Irrigated with Saline -Foul Odor after Cleansing No No -Anesthetic Used 5% Lidocaine 5% Lidocaine Gel Gel Left Calf (cm) 47 Left Ankle (cm) 31.7 WC - Nurse 2 - General Ulcer CM Notes Start: 10/12/23 14:44 Freq: Status: Active Protocol: Activity Type Activity Date Activity User E-sign Co-sign Detail Recorded Client Recorded Date Recorded By Document 10/12/23 15:05 JF 000 10/12/23 15:09 JF Document 10/19/23 15:09 JF 0000 10/19/23 15:14 JF 10/12/23 10/19/23 15:05 15:09 Wound Center Nurse 2 #4- L MED HEEL -Time 15:08 -Correct Patient Yes No -Correct Side, Site, Position Yes No -Correct Procedure Yes No -Procedure Performed Yes No -Type of Procedure Debridement -Clinical Debridement Subcutaneous -Tissue Removed Subcutaneous -Post Debridement (cm) - Length 3.0 -Post Debridement (cm) - Width 2.5 -Post Debridement (cm) - Depth 0.1 -Total Square (Post) (cm) 7.50 -Area of Debridement (cm) - Length 3.0 -Area of Debridement (cm) - Width 2.5 -Total Square (Area) (cm) 7.50 -Tunneling No -Undermining/Tunneling No -Circular Undermining No -Wound/Ulcer Outcome Not Healed Not Healed -Ulcer Cleansing Rinsed/ Irrigated with Saline -Foul Odor after Cleansing No -Bioengineered Tissue No -Bleeding Controlled with Pressure -Treatment Response Procedure Tolerated Well -Offloading No -Debridement - Subq, 1st 20sq cm Yes Pain Scale: 0-10 Numeric Is Patient Pain Free? Yes Yes - Nurse 3 - General Ulcer D/C NN Start: 10/12/23 14:44 Freq: Status: Active Protocol: Activity Type Activity Date Activity User E-sign Co-sign Detail Recorded Client Recorded Date Recorded By Document 10/12/23 15:33 KW [facility] 10/12/23 15:35 KW Document 10/19/23 15:29 CP 10/19/23 15:30 CP 10/12/23 10/19/23 15:33 15:29 Wound Care Center Nurse 3 #4- L MED HEEL -Ulcer Cleansing Not Cleansed -Foul Odor after Cleansing No -Primary Dressing Applied Silvercel Silvercel -Primary Dressing Covered/Secured with Dry Gauze & Dry Gauze & Roll Gauze, Roll Gauze, Secured with Secured with Tape Tape -Silvercel 1 1 Left -Compression Wrap Kd Wrap -Tubular Bandage Double Layer -Size of Tubigrip Used Size F -Size F ($) 2 Pain Scale: 0-10 Numeric Is Patient Pain Free? Yes Yes WC - Visit Discharge Discharge Condition Stable Stable Ambulatory Status Ambulatory, Ambulatory, Walker Walker Transportation Private Auto Private Auto Medication Reconcilliation completed & No provided to patient/care provider Clinical Summary of Care Provided Yes Yes Assessment/Plan Assessment/Plan (1) Cellulitis of foot: CODE(S): L03.119 - Cellulitis of unspecified part of limb PLAN: Patient was examined and evaluated. All findings were discussed with the patient. All questions were answered to the patient's satisfaction. After evaluation of the patient's left heel it was educated to the patient with infectious disease in the room that we recommend the patient to go to the emergency department to be evaluated as well as admitted under medicine so that he can start getting IV antibiotics due to failing multiple rounds of outpatient oral antibiotics. Long discussion again was with the patient as he was refusing at the time of this discussion and jokingly stating that while he would rather just lose his leg then be admitted to the hospital and get a PICC line at discharge. We continued discussed the importance that the patient is showing worsening infection and needs to be optimized from the medicine team as well as using IV antibiotics through infectious disease recommendation. Patient will also need to be taken to the operating room for incision and drainage and possible delayed primary closure versus wound VAC application to left heel from chronic draining sinus that was seen on MRI. Finally after our continued discussion the patient was agreeable to present to the emergency department today versus tomorrow for admission. Follow-up at the wound care center with Dr. Spann in 1 week. (2) Non-pressure chronic ulcer of other part of left foot with fat layer exposed: CODE(S): L97.522 - Non-pressure chronic ulcer of other part of left foot with fat layer exposed (3) Lymphedema, not elsewhere classified: CODE(S): I89.0 - Lymphedema, not elsewhere classified
--- NOTE | 2023-10-27 09:29 | WC ---
PHOTO 10/12/23 LEFT HEEL
== END 2023-11-05 23:59 | disposition home or self-care (01) ==
LOC: WC 14:00
PROVIDERS: PCP Internal Medicine; Referring Provider Podiatrist Foot & Ankle Surgery; Visit Provider Podiatrist Foot & Ankle Surgery
DX: E11.621 Type 2 diabetes mellitus with foot ulcer (principal); L97.422 Non-pressure chronic ulcer of left heel and midfoot with fat layer exposed; I48.91 Unspecified atrial fibrillation; E11.42 Type 2 diabetes mellitus with diabetic polyneuropathy; Z79.4 Long term (current) use of insulin; E78.5 Hyperlipidemia, unspecified; I10 Essential (primary) hypertension; I87.2 Venous insufficiency (chronic) (peripheral); I89.0 Lymphedema, not elsewhere classified; R60.0 Localized edema; G47.00 Insomnia, unspecified; H54.7 Unspecified visual loss; Z79.01 Long term (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 of anticoagulants; Z79.899 Other long term (current) drug therapy; L03.119 Cellulitis of unspecified part of limb
CPT/HCPCS: 11042; 99214; G0463

== ENCOUNTER 2023-10-20 13:25 | Inpatient (IN) | payer MEDICARE, OTHER, SELFPAY ==
[2023-10-20 13:26] VITALS: BP 134/71; PULSE 71; RESP 18; TEMP 36.6; O2SAT 98
[2023-10-20 13:29] VITALS: BMI 38.0
--- NOTE | 2023-10-20 13:52 | EKG12_ITS ---
Test Reason : ABN LABS Blood Pressure : / mmHG Vent. Rate : 064 BPM Atrial Rate : 064 BPM P-R Int : 132 ms QRS Dur : 094 ms QT Int : 406 ms P-R-T Axes : 000 -12 035 degrees QTc Int : 418 ms Sinus rhythm with occasional Premature ventricular complexes and Premature atrial complexes Otherwise normal ECG Confirmed by Pool Gallego ([id number]), supervising editor trailer ROSI SMITH ([id number]) on 10/24/2023 8:55:07 AM Referred By: Confirmed By:Pool Gallego
[2023-10-20] MEDS: Piperacil/Tazobactam 4.5 GM in 0.9% Normal Saline (100mL MB+) 100 ML IV (14:28)
[2023-10-20] MEDS: 0.9% Normal Saline (1000mL) 1,000 ML 150 ML IV (14:28)
--- NOTE | 2023-10-20 14:32 | RAD_ITS ---
STUDY: X-RAY - LEFT FOOT CLINICAL: Male, 77 years old. Injury. Pain. TECHNIQUE: 3 view(s) of the foot. COMPARISON: None. FINDINGS: Marked osteopenia. Superior calcaneal spur. Moderate arthrosis of the midfoot. Moderate arthrosis of the TMT joints. Moderate to marked arthrosis of the MTP and IP joints with marked hammertoe deformities. Diffuse soft tissue swelling. RAD/Foot min 3 Views IMPRESSION: Osteopenia, osteoarthritic changes most marked in the MTP and IP joints and diffuse soft tissue swelling. Electronically Signed: Tyshawn Seaman MD at 14:43 EDT ,
[2023-10-20 14:33] LABS: Absolute Lymphocyte Count 2.41 X10^3/uL (0.83-4.51); Absolute Neutrophil Count 6.1 X10^3/uL (2.0-7.7); Basophil# 0.08 X10^3/uL; Basophil% 0.8 % (0-1); Eosinophil# 0.88 X10^3/uL; Eosinophils% 8.3 % (0-5); Erythrocyte Sedimentation Rate 10 mm/hr (0-20); Hematocrit 37.2 % (40-54); Hemoglobin 11.8 g/dL (13.0-16.5); Lymphocyte # 2.41 X10^3/ul (0.83-4.51); Lymphocyte % 22.9 % (19-41); Mean Corp Hgb Conc 31.7 g/dL (32-36); Mean Corpuscular Hgb 29.5 pg (27.0-32.0); Mean Platelet Vol. 11.6 fl (6.2-12.0); Monocyte# 1.04 X10^3/uL; Monocyte% 9.9 % (0-10); NRBC Flagged by Analyzer 0 % (0-5); Neutrophil % 57.8 % (47-70); Platelet Count 214 K/mm3 (150-450); RBC Distribution Width CV 13.4 % (11.6-14.6); RBC Distribution Width SD 45.8 fl (35.1-43.9); White Blood Count 10.5 K/mm3 (4.4-11.0)
[2023-10-20 14:34] LABS: International Normalized Ratio 1.5; Prothrombin Time (Protime)PT. 17.8 SECONDS (11.7-14.9)
[2023-10-20 14:35] LABS: Partial Thromboplast Time 33.2 Seconds (24.1-36.2)
[2023-10-20 14:38] LABS: ALB/GLOB Ratio 0.9 RATIO (0.9-2.4); AST(SGOT) 14 U/L (15-37); Alanine Aminotransfer ALT/SGPT 19 U/L (16-61); Albumin, Serum 2.9 g/dL (3.2-5.0); Alkaline Phosphatase 118 U/L (45-117); Anion Gap 5 (5-15); BUN 20 mg/dL (7-18); BUN/Creat Ratio 15.7 RATIO (10-20); Calcium,Total 9.3 mg/dL (8.5-10.1); Chloride 107 mmol/L (98-107); Creatinine, Serum 1.27 mg/dL (0.70-1.30); EST Glomerular Filtration Rate 59 mL/min (>60); Est Glom Filt Rate - Afr Amer 71 mL/min (>60); Globulin 3.4 g/dL (2.2-4.2); Glucose 204 mg/dL (74-106); Potassium 4.5 mmol/L (3.5-5.1); Protein, Total 6.3 g/dL (6.4-8.2); Sodium Level 139 mmol/L (136-145)
--- NOTE | 2023-10-20 14:38 | EX.ED.DYSGE1 ---
HPI History of Present Illness Chief Complaint: Abn Labs Detail of Chief Complaint: Diabetic foot infection, left Informant: patient and spouse/S.O. Onset/Context/Timing Onset: Month(s) (Up to 7 months) Timing: Intermittent and Waxes and wanes Quality: Breakdown of skin, redness, drainage and odor Location: Left leg and foot Current Severity: Moderate Maximum Severity: Moderate Worsened by: Presumed diabetes with neuropathy, history of PAD. Relieved by: Nothing Associated Symptoms Associated Symptoms: No fever or chills. Symptoms of claudication Narrative Narrative: Patient is a 77-year-old male. He has multiple medical problems which include DVT, diabetic neuropathy, bilateral lymphedema, Kaposi's sarcoma, delayed wound healing left foot, type 2 diabetes, paroxysmal atrial fibrillation, hypertension hyperlipidemia. Patient was seen yesterday by Dr. Spann. Patient was instructed to come to the emergency room either yesterday or tomorrow. He informed Dr. Gallo he would not be able to come until today. Dr. Mazariegosss that that would be fine since it has been going on for approximately 7 months. He has seen by Dr. Jensen for ID. Patient denies recent fever, chills night sweats. Patient denies weight loss. Patient has chronic dyspnea on exertion. Patient denies orthopnea or PND. Patient has chest discomfort. Patient denies abdominal pain, nausea, vomiting or diarrhea. Patient denies any black or maroon-colored stool. Patient states that the drainage has had an odor the last several days. He is presently on no antibiotics. He is allergic to sulfa. He is not allergic to penicillin. Prior similar symptoms: Yes Recent Illness/Hospitalization: No PFSH PFS Medical History Anemia Cancer Current use of insulin Back pain due to injury Injury of head and neck History of stress test Rheumatic fever Wears hearing aid in both ears Blindness of both eyes Hearing loss, left Hearing loss, right Hypothyroidism Diabetes Chronic pain Former smoker Atrial fibrillation Hypertension DVT (deep venous thrombosis) History of diabetes mellitus History of atrial fibrillation Frequent PVCs Paroxysmal atrial fibrillation Renal insufficiency Retinitis pigmentosa Hypothyroidism Hyperlipidemia Insomnia GERD (gastroesophageal reflux disease) Legal blindness Osteoarthritis Essential hypertension Sepsis Chronic back pain UTI (urinary tract infection) Acute renal failure Type II diabetes mellitus Home Medications ?Medication ?Instructions ?Recorded ?Last Taken ?Type gabapentin 800 mg tablet 800 mg PO 4XD 06/17/14 08/21/15 04:00 History omeprazole 40 mg capsule,delayed 40 mg PO DAILY 08/21/13 10/25/14 04:00 History release atorvastatin 80 mg tablet 80 mg PO QHS 07/25/14 Unknown History finasteride 5 mg tablet 1 tab PO DAILY 01/23/20 Unknown History hydrocodone 10 mg-acetaminophen 1 tab PO 4X/DAY 01/23/20 Unknown History 325 mg tablet cholecalciferol (vitamin D3) 125 125 mcg PO DAILY 04/11/20 Unknown History mcg (5,000 unit) capsule furosemide 40 mg tablet 40 - 80 mg PO DAILY PRN edema 04/11/20 Unknown History apixaban 5 mg tablet (Eliquis) 5 mg PO BID 07/02/20 Unknown History insulin aspart U-100 100 unit/mL 30 unit subcut TID 08/26/22 Unknown History (3 mL) subcutaneous pen (Novolog FlexPen U-100 Insulin aspart) amlodipine 5 mg tablet 5 mg PO DAILY 03/30/23 Unknown History ondansetron 4 mg disintegrating 4 mg PO Q12H PRN nausea and 03/30/23 Unknown History tablet vomiting enalapril maleate 10 mg tablet 10 mg PO BID 08/29/23 Unknown History levothyroxine 25 mcg tablet mcg PO 08/29/23 Unknown History wsawacqo-qev-oqxpd acid 0.4 1 tab PO DAILY 08/29/23 Unknown History mg-lycopene 300 mcg-lutein 250 mcg tablet (Centrum Silver) doxycycline hyclate 100 mg capsule 100 mg PO BID 2 weeks #28 caps 09/07/23 Unknown Rx cetirizine 10 mg tablet (24Hour 10 mg PO BID PRN allergy symptoms 10/20/23 Unknown History Allergy) vitamin E 800 unit capsule 800 unit PO DAILY 10/20/23 Unknown History Allergy/AdvReac Type Severity Reaction Status Date / Time Sulfa (Sulfonamide Allergy Shortness Verified 10/20/23 13:26 Antibiotics) of breath Gadolinium-MRI Contrast AdvReac Vomiting Verified 10/20/23 13:26 Medium (MRI) Family History Sister Cancer ovarian Mother CVA (cerebral vascular accident) Diabetes Father Cancer malignant melanona, bladder Brother Myocardial infarction Brother Myocardial infarction Brother Lung cancer Surgical History History of cholecystectomy (~10/2022) History of left heart catheterization (04/16/20) History of thumb surgery History of vein stripping History of carpal tunnel surgery of left wrist History of discectomy History of spinal fusion History of surgery on wrist History of elbow surgery History of arthroscopy of knee History of cataract extraction History of transurethral resection of prostate Social History household members: spouse and other details: nephew Smoking Status: Former smoker Tobacco: How many years used: 10 how long ago did patient quit smokin years ago alcohol intake: never substance use type: does not use caffeine: Yes Type: carbonated beverages Number of servings: 5 what type of physical activity do you participate in: none seatbelt use: always do you feel safe at home: Yes ROS ROS ED Constitutional Constitutional ED: Denies chills, fever(s), subjective, sweats or weight loss Eyes Eyes: Denies blurry vision, change in vision or diplopia ENT ENT ED: Denies ear pain, rhinorrhea or sore throat Cardiovascular Cardiovascular: Denies chest pain, orthopnea or palpitations Respiratory/Chest Respiratory/Chest: Reports dyspnea on exertion; Denies cough, dyspnea or orthopnea Gastrointestinal Gastrointestinal: Denies abdominal pain, diarrhea, melena, nausea or vomiting Genitourinary Genitourinary ED: Denies dysuria, hematuria or urinary frequency Musculoskeletal Musculoskeletal: Denies arthralgias, back pain, myalgias or neck pain Integumentary Reports rash Neurologic Neurologic: Reports paresthesias and weakness Endocrine Endocrinology: Denies cold intolerance or heat intolerance Hematologic/Lymphatic Hematologic/Lymphatic: Reports easy bruising and other Details: Patient is on apixaban. EXAM Physical Exam Const Vital Signs: 10/20/23 13:25 10/20/23 13:26 10/20/23 13:52 Temperature 98 F Temperature Source Temporal Pulse Rate 71 Respiratory Rate 18 Respiratory Effort Normal Non-Labored Respiratory Pattern Normal Blood Pressure 134/71 H Blood Pressure Mean 92 Pulse Ox 98 Oxygen Delivery Method Room Air Room Air 10/20/23 15:25 10/20/23 15:27 10/20/23 15:28 Temperature 98.2 F 98.2 F Temperature Source Temporal Pulse Rate 60 60 60 Respiratory Rate 18 15 15 Respiratory Effort Respiratory Pattern Blood Pressure 143/67 H 143/67 H 143/67 H Blood Pressure Mean 92 92 92 Pulse Ox 92 98 98 Oxygen Delivery Method Room Air Room Air Positive well nourished and well developed Constitutional Narrative: Patient does not appear well. Patient has nystagmus and is legally blind. There is opacification of the cornea on the right. General Appearance ED: well developed and NAD HEENT Reports moist mucous membranes HEENT Narrative: Atraumatic normocephalic. Patient is very hard of hearing even with hearing aids in. Nares patent. Posterior pharynx is normal. Eyes Negative for PERRL or EOMs intact bilaterally Eyes Narrative: There is nystagmus. General Eye ED: Negative for pale conjunctiva or scleral icterus Neck no lymphadenopathy and supple Chest Wall inspection of chest normal and palpation of chest normal Resp normal respiratory effort and clear to auscultation bilaterally Cardio regular rate, regular rhythm, S1 normal heart sound, S2 normal heart sound and no murmurs GI normal to inspection, nondistended, normoactive bowel sounds, non-tender, non-distended and no masses; Negative for hepatosplenomegaly Back/Spine no CVA tenderness Extremity Negative for normal to inspection General Extremety ED: Yes edema; Negative for tenderness General Extremity: edema Neuro oriented x3 and CN's II-XII intact bilaterally Sensorium / Orientation: alert Psych mental status grossly normal Skin Skin Narrative: Patient has breakdown of the skin medial left heel. There is cellulitis of the posterior portion of the foot and left leg. There is no lymphangitis. There is no popliteal angle lymphadenopathy. Patient has significant swelling of the left foot in comparison to the right. MDM MDM MDM Narrative Medical decision making narrative: Patient with a diabetic foot ulcer that is infected. Sepsis workup was initiated. Need to evaluate for soft tissue infection versus soft tissue infection with osteo need to also consider abscess. Inflammatory markers were obtained as well as competence metabolic panel CBC and coags. Chest x-ray was not obtained. Lab Data Attestation: I reviewed the patient's lab results. Lab results narrative: White count is normal. There is no shift. Coags are unremarkable. Electrolyte panel is remarkable for a creatinine of 1.27 with an estimated GFR of 59. Glucose is elevated 204 with a normal CO2 and anion gap. Transaminases are normal. C-reactive protein is elevated at 15.6. ESR is normal at 10. Labs: Laboratory Results - last 24 hr 10/20/23 14:12 WBC 10.5 RBC 4.00 L Hgb 11.8 L Hct 37.2 L MCV 93.0 MCH 29.5 MCHC 31.7 L RDW Std Deviation 45.8 H RDW Coeff of King 13.4 Plt Count 214 MPV 11.6 Immature Gran % (Auto) 0.300 Neut % (Auto) 57.8 Lymph % (Auto) 22.9 White % (Auto) 9.9 Eos % (Auto) 8.3 H Baso % (Auto) 0.8 Absolute Neuts (auto) 6.1 Absolute Lymphs (auto) 2.41 Nucleated RBC % 0 ESR 10 PT 17.8 H INR 1.5 APTT 33.2 Sodium 139 Potassium 4.5 Chloride 107 Carbon Dioxide 27.0 Anion Gap 5 BUN 20 H Creatinine 1.27 Est GFR (MDRD) Af Amer 71 Est GFR (MDRD) Non-Af 59 L BUN/Creatinine Ratio 15.7 Glucose 204 H Lactic Acid 1.3 Calcium 9.3 Total Bilirubin 0.80 AST 14 L ALT 19 Alkaline Phosphatase 118 H C-React Prot Ext Range 15.60 H Total Protein 6.3 L Albumin 2.9 L Globulin 3.4 Albumin/Globulin Ratio 0.9 Radiography Chest X-Ray - ED: Read by ED Physician (Three-view x-ray of the foot reveal soft tissue swelling. There is no subcutaneous air. There is no evidence of osteomyelitis.) Diagnostic Testing: Clinical Impression(s) from Imaging Studies Foot X-Ray 10/20/23 14:32 IMPRESSION: Osteopenia, osteoarthritic changes most marked in the MTP and IP joints and diffuse soft tissue swelling. Electronically Signed: Tyshawn Seaman MD at 14:43 EDT , EKG Initial EKG: Attestation: I personally reviewed and interpreted this EKG as follows: Interpretation: Sinus Rhythm (Rate is 64. There is an occasional premature ventricular beat noted. LA interval is 132 ms. Cures duration 94 ms. QT duration is 406 ms. [place] is normal. There is no acute ischemic changes noted.) Management Discussion w/another healthcare provider: Hospitalist (Will page hospitalist for admission. Will also need to notify podiatry and ID per patient.) Discharge Plan Dx/Rx/DC Orders Clinical Impression: Diabetic foot infection, Type 2 diabetes mellitus with diabetic polyneuropathy, Frequent PVCs, Lymphedema, not elsewhere classified, Cellulitis of left lower leg, Failure of outpatient treatment Disposition Disposition: Acute Care Hospital [facility] Discharge Date/Time: 10/20/23 16:28
[2023-10-20 14:48] LABS: Lactic Acid 1.3 mmol/L (0.4-1.9)
[2023-10-20 15:25] VITALS: BP 143/67; PULSE 60; RESP 18; O2SAT 92
[2023-10-20 15:27] VITALS: BP 143/67; PULSE 60; RESP 15; TEMP 36.8; O2SAT 98
[2023-10-20 15:28] VITALS: BP 143/67; PULSE 60; RESP 15; TEMP 36.8; O2SAT 98
[2023-10-20] MEDS: Vancomycin HCl 2,000 MG in 0.9% Normal Saline (500mL Bag) 500 ML 250 MG IV (15:36)
--- NOTE | 2023-10-20 15:39 | HP.PCM.HOS_ITS ---
HPI - General General Date of Admission: 10/20/23 Date of Service: 10/20/23 Chief Complaint: Left foot wound HPI Narrative MACHELLE SHARP, is a 77 M who presented to the emergency department at [facility] on 10/20/2023 with a left foot wound. This has been an ongoing issue and at this time he has been seeing Dr. Olaf Spann at the wound center and Dr. Birch from infectious disease. He was seen by Dr. Spann and Dr. Birch yesterday in the office at the wound center and they recommend that he be evaluated in the emergency department for IV antibiotics after failing multiple rounds of outpatient oral antibiotics. He initially was reluctant to come in however his finally was able to talk him into coming in the emergency department for admission with IV antibiotics and probable debridement. An MRI was performed and showed a chronic draining sinus. Patient states he is feeling okay and if not for the recommendation of the dispatch specialist and infectious disease doctor he would not be in the emergency department. Vital signs on presentation showed temperature of 98, heart rate 71, respiratory is 18, blood pressure is 134/71 and oxygen saturation was 98% room air. CBC showed a mild stable anemia with a hemoglobin of 11.8 but no elevated white count or left shift. He does have a mild eosinophilia at 8.3%. Coags were obtained and slightly elevated due to the fact of him being on apixaban chronically. Chemistry panel was performed and shows no electrolyte abnormalities stable renal function and hyperglycemia with a blood glucose level of 204. Liver functions are unremarkable. ESR was obtained and found to be 10 and CRP was found to be 15.60. Foot x-ray was performed and shows osteopenia with osteoarthritic changes and diffuse soft tissue swelling. MRI was performed on 09/24/2023 and showed a deep subcutaneous phlegmon pocket deep to the superficial skin ulcer on the medial and posterior aspect of the calcaneus but no abscess was present at that time without any signs of osteo myelitis. He was given vancomycin and Zosyn in the emergency department and request for admission was made. FOR[facility]LY [facility] Medical History Anemia Cancer Current use of insulin Back pain due to injury Injury of head and neck History of stress test Rheumatic fever Wears hearing aid in both ears Blindness of both eyes Hearing loss, left Hearing loss, right Hypothyroidism Diabetes Chronic pain Former smoker Atrial fibrillation Hypertension DVT (deep venous thrombosis) History of diabetes mellitus History of atrial fibrillation Frequent PVCs Paroxysmal atrial fibrillation Renal insufficiency Retinitis pigmentosa Hypothyroidism Hyperlipidemia Insomnia GERD (gastroesophageal reflux disease) Legal blindness Osteoarthritis Essential hypertension Sepsis Chronic back pain UTI (urinary tract infection) Acute renal failure Type II diabetes mellitus Home Medications ?Medication ?Instructions ?Recorded ?Last Taken ?Type gabapentin 800 mg tablet 800 mg PO 4XD 08/21/13 10/25/14 04:00 History omeprazole 40 mg capsule,delayed 40 mg PO DAILY 08/21/13 10/25/14 04:00 History release atorvastatin 80 mg tablet 80 mg PO QHS 07/25/14 Unknown History finasteride 5 mg tablet 1 tab PO DAILY 01/23/20 Unknown History hydrocodone 10 mg-acetaminophen 1 tab PO 4X/DAY 01/23/20 Unknown History 325 mg tablet cholecalciferol (vitamin D3) 125 125 mcg PO DAILY 04/11/20 Unknown History mcg (5,000 unit) capsule furosemide 40 mg tablet 40 - 80 mg PO DAILY PRN edema 04/11/20 Unknown History apixaban 5 mg tablet (Eliquis) 5 mg PO BID 07/02/20 Unknown History insulin aspart U-100 100 unit/mL 30 unit subcut TID 08/26/22 Unknown History (3 mL) subcutaneous pen (Novolog FlexPen U-100 Insulin aspart) amlodipine 5 mg tablet 5 mg PO DAILY 03/30/23 Unknown History ondansetron 4 mg disintegrating 4 mg PO Q12H PRN nausea and 03/30/23 Unknown History tablet vomiting enalapril maleate 10 mg tablet 10 mg PO BID 08/29/23 Unknown History levothyroxine 25 mcg tablet mcg PO 08/29/23 Unknown History bpnpvpzf-aoi-zsuav acid 0.4 1 tab PO DAILY 08/29/23 Unknown History mg-lycopene 300 mcg-lutein 250 mcg tablet (Centrum Silver) doxycycline hyclate 100 mg capsule 100 mg PO BID 2 weeks #28 caps 09/07/23 Unknown Rx cetirizine 10 mg tablet (24Hour 10 mg PO BID PRN allergy symptoms 10/20/23 Unknown History Allergy) vitamin E 800 unit capsule 800 unit PO DAILY 10/20/23 Unknown History Allergy/AdvReac Type Severity Reaction Status Date / Time Sulfa (Sulfonamide Allergy Shortness Verified 10/20/23 13:26 Antibiotics) of breath Gadolinium-MRI Contrast AdvReac Vomiting Verified 10/20/23 13:26 Medium (MRI) Family History Sister Cancer ovarian Mother CVA (cerebral vascular accident) Diabetes Father Cancer malignant melanona, bladder Brother Myocardial infarction Brother Myocardial infarction Brother Lung cancer Surgical History History of cholecystectomy (~10/2022) History of left heart catheterization (04/16/20) History of thumb surgery History of vein stripping History of carpal tunnel surgery of left wrist History of discectomy History of spinal fusion History of surgery on wrist History of elbow surgery History of arthroscopy of knee History of cataract extraction History of transurethral resection of prostate Social History household members: spouse and other details: nephew Smoking Status: Former smoker Tobacco: How many years used: 10 how long ago did patient quit smokin years ago alcohol intake: never substance use type: does not use caffeine: Yes Type: carbonated beverages Number of servings: 5 what type of physical activity do you participate in: none seatbelt use: always do you feel safe at home: Yes ROS Constitutional Constitutional: Denies anorexia, change in weight, chills, fatigue, fever(s), malaise, night sweats, weakness or other Eyes Eyes: Reports loss of vision and other Details: Patient with chronic blindness ; Denies blurry vision, change in eye color, change in vision, discharge from eye(s), double vision, erythema or eye pain ENT HEENT: Reports abnormal hearing and hearing loss; Denies dysphagia, ear pain, epistaxis, headache(s), nasal congestion, nasal discharge, post nasal drip, sinus pressure, sore throat or other Cardiovascular Cardiovascular: Denies chest pain, claudication, dyspnea on exertion, edema, lightheadedness, orthopnea, palpitations, paroxysmal nocturnal dyspnea, rapid heart rate, syncope or other Respiratory/Chest Respiratory/Chest: Denies cough, dyspnea, excessive phlegm production, hemoptysis, productive cough, shortness of breath at rest, shortness of breath with exertion, wheezing or other Gastrointestinal Gastrointestinal: Denies abdominal pain, coffee ground emesis, constipation, diarrhea, dyspepsia, hematemesis, hematochezia, loose stools, melena, nausea, vomiting or other Genitourinary Genitourinary: Denies burning urination, difficulty urinating, dysuria, hematuria, nocturia, urinary frequency, urinary hesitancy, urinary incontinence, urinary urgency or other Musculoskeletal Musculoskeletal: Reports back pain, joint pain and joint stiffness; Denies arthralgias, joint swelling, myalgias, neck pain or other Neurologic Neurologic: Reports abnormal gait; Denies abnormal speech, confusion, disequilibrium, dizziness, focal weakness, headache(s), numbness, paresthesias, seizure-like activity, seizures, syncope, tingling, tremor(s) or other Psychiatric Psychiatric: Denies anxiety, depression, homicidal ideation, suicidal ideation or other Endocrine Endocrinology: Denies change in body appearance, cold intolerance, excessive sweating, heat intolerance, polydipsia, polyuria or other Hematologic/Lymphatic Hematologic/Lymphatic: Denies anemia, easy bleeding, easy bruising, lymphadenopathy or other Allergic/Immunologic Allergic/Immunologic: Denies rhinitis, hives, eczemia, asthma or other Vital Signs Vital Signs Vital Signs: 10/20/23 13:25 10/20/23 13:26 10/20/23 13:52 Temperature 98 F Temperature Source Temporal Pulse Rate 71 Respiratory Rate 18 Respiratory Effort Normal Non-Labored Respiratory Pattern Normal Blood Pressure 134/71 H Blood Pressure Mean 92 Pulse Ox 98 Oxygen Delivery Method Room Air Room Air 10/20/23 15:25 10/20/23 15:27 10/20/23 15:28 Temperature 98.2 F 98.2 F Temperature Source Temporal Pulse Rate 60 60 60 Respiratory Rate 18 15 15 Respiratory Effort Respiratory Pattern Blood Pressure 143/67 H 143/67 H 143/67 H Blood Pressure Mean 92 92 92 Pulse Ox 92 98 98 Oxygen Delivery Method Room Air Room Air Weight Weight: 127.4 kg Body Mass Index (BMI) 38.0 Physical Exam Const alert, oriented x3, no apparent distress and well nourished; Negative for average body habitus or healthy appearing Constitutional Narrative: Morbidly obese, white male, sitting up in bed, at bedside, patient appears comfortable, nontoxic, overall seems disinterested being in the hospital, appears chronically ill General Appearance: cooperative HEENT normocephalic, head/scalp atraumatic and moist oral mucous membranes; Negative for hearing grossly normal bilaterally HEENT Narrative: Mallampati 3, upper dentures in place, no thrush, hearing loss noted Eyes EOMs intact bilaterally and conjunctivae normal Eyes Narrative: No scleral icterus Neck no lymphadenopathy and supple Neck Narrative: Neck is short and thick, trachea midline, no thyroid enlargement Resp normal respiratory effort, no retractions, no use of accessory muscles and clear to auscultation bilaterally Auscultation: Negative for rales, rhonchi or wheezes Cardio regular rate, regular rhythm, S1 normal heart sound, S2 normal heart sound, no murmurs, no rub, no gallops and no clicks GI normal to inspection, nondistended, normoactive bowel sounds, soft to palpation and non-tender GI Narrative: Large protuberant abdomen Extremity Extremity Narrative: Bilateral lower extremity edema present that is pitting in nature, cap refill is 2+, pedal pulses are 1+ bilaterally Skin No no rashes or lesions noted, No no wounds, skin turgor normal, no jaundice, no petechiae and no mottling Skin Narrative: Large ulceration of the left posterior and medial foot surrounding the medial calcaneus with serous drainage, ulceration and blistering Neuro oriented x3, moves all extremities and no focal motor deficits Neuro Narrative: Decree sensation bilateral lower extremities Speech: speech normal Psych Psych Narrative: Affect is slightly flattened patient seems somewhat disinterested however answers questions appropriately Results Lab / Micro Data 10/20/23 14:12 10/20/23 14:12 Labs: Laboratory Results - last 24 hr 10/20/23 14:12: WBC 10.5, RBC 4.00 L, Hgb 11.8 L, Hct 37.2 L, MCV 93.0, MCH 29.5, MCHC 31.7 L, RDW Std Deviation 45.8 H, RDW Coeff of King 13.4, Plt Count 214, MPV 11.6, Immature Gran % (Auto) 0.300, Neut % (Auto) 57.8, Lymph % (Auto) 22.9, [place] % (Auto) 9.9, Eos % (Auto) 8.3 H, Baso % (Auto) 0.8, Absolute Neuts (auto) 6.1, Absolute Lymphs (auto) 2.41, Nucleated RBC % 0, ESR 10, PT 17.8 H, INR 1.5, APTT 33.2, Sodium 139, Potassium 4.5, Chloride 107, Carbon Dioxide 27.0, Anion Gap 5, BUN 20 H, Creatinine 1.27, Est GFR (MDRD) Af Amer 71, Est GFR (MDRD) Non-Af 59 L, BUN/Creatinine Ratio 15.7, Glucose 204 H, Lactic Acid 1.3, Calcium 9.3, Total Bilirubin 0.80, AST 14 L, ALT 19, Alkaline Phosphatase 118 H, C-React Prot Ext Range 15.60 H, Total Protein 6.3 L, Albumin 2.9 L, Globulin 3.4, Albumin/Globulin Ratio 0.9 Imaging Radiology Impression Foot X-Ray 10/20/23 14:32 IMPRESSION: Osteopenia, osteoarthritic changes most marked in the MTP and IP joints and diffuse soft tissue swelling. Electronically Signed: Tyshawn Seaman MD at 14:43 EDT , Assessment & Plan Assessment/Plan (1) Failure of outpatient treatment: (2) Cellulitis of left lower leg: (3) Diabetic foot infection: (4) Chronic anticoagulation: PLAN: Plan Left lower extremity cellulitis with ulceration/diabetic foot infection -Patient did have MRI on 09/24/2023 which does not show any signs of osteomyelitis at this time however the sinus tract -Will hold off on any further imaging for now and perform at podiatry's discretion -Based on previous cultures we will start meropenem and vancomycin for now -Patient has failed multiple oral antibiotics as an outpatient -Cultures ordered (wound and blood) -Will need debridement in the OR per podiatry's note as an outpatient -Hold Eliquis -Check hemoglobin A1c -Consult infectious disease -Consult podiatry -N.p.o. after midnight in case surgery is an option tomorrow DM-2 -Continue home Humalog 30 units to 3 times daily -Will need to hold a.m. dose if patient goes to the OR tomorrow -Patient is curiously not on any basal insulin -SSI as ordered -Continue additional sliding scale -Accu-Cheks -Cardiac/carb controlled diet for now Diabetic neuropathy -Continue home gabapentin Hypertension/hyperlipidemia -Hold home Lasix as this is ordered as needed and monitor swelling -Continue home enalapril -Continue home atorvastatin PAF -Patient is not on any rate controlling as an rates are able -Hold apixaban for OR and restart once okay with podiatry Hypothyroidism -Check TSH -Patient has not been taking his levothyroxine and does have a history of hypothyroidism CKD stage IIIa -Serum creatinine appears to be between 1.1 and 1.3 -1.27 on admission -Continue to monitor Chronic bilateral lower extremity lymphedema/venous stasis -Elevation -Lasix as needed as needed Bilateral chronic lower extremity heel ulcers -Continue outpatient follow-up with podiatry -Consult wound care BPH with obstruction -Continue home finasteride 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
[2023-10-20 16:50] VITALS: BMI 40.4
[2023-10-20 17:16] VITALS: BP 154/74; PULSE 88; RESP 18; TEMP 36.4; O2SAT 100
[2023-10-20 17:38] LABS: Bacteria 0 SEEN /hpf (None Seen); Mucous, Urine 0 SEEN /hpf (<or=2+); White Blood Cells 0 SEEN /hpf (0-5)
--- NOTE | 2023-10-20 17:39 | PCM.RX.CS ---
Consult Antibiotic Management Pharmacy has been consulted to manage selected antibiotic: Vancomycin Type of Intervention Type of Consult: New start Suspected Infection Suspected Infection: Skin/Soft tissue Labs Labs: Sodium 139 mmol/L (136-145) 10/20/23 14:12 Potassium 4.5 mmol/L (3.5-5.1) 10/20/23 14:12 Chloride 107 mmol/L (98-107) 10/20/23 14:12 Carbon Dioxide 27.0 mmol/L (21.0-32.0) 10/20/23 14:12 Anion Gap 5 (5-15) 10/20/23 14:12 BUN 20 mg/dL (7-18) H 10/20/23 14:12 Creatinine 1.27 mg/dL (0.70-1.30) 10/20/23 14:12 Est GFR (MDRD) Af Amer 71 mL/min (>60) 10/20/23 14:12 Est GFR (MDRD) Non-Af 59 mL/min (>60) L 10/20/23 14:12 BUN/Creatinine Ratio 15.7 RATIO (10-20) 10/20/23 14:12 Glucose 204 mg/dL (74-106) H 10/20/23 14:12 Pharmacy Plan for Drug Dosing Pharmacy Plan for Drug Dosing: NEW START IV VANCOMYCIN Consulting Physician: Gregory Tesfaye Indication: Cellulitis Goal Trough: 15-20 mg/dL SrCr: 1.27 mg/dL CrCl: 70.4 mL/min (using adjusted BW) Comments: 2000mg loading dose given in ER 10/19 @ 1536 Vancomycin Dose: Will start 1750mg Q12 (10/20 @ 0330) and get a level prior to the 4th total dose per policy. Pending Level: 10/22/23 @ 0300 Pharmacy Service will continue to monitor and adjust dosing as required.
[2023-10-20 17:44] LABS: Color, Urine Yellow (Yellow); Glucose, Dipstick Normal (Normal); Ketone-Dipstick Negative (Negative); Leukocyte Esterase-Dipstick Negative /ul (Negative); Nitrite-Dipstick Negative (Negative); Occult Blood-Urine 10 /ul (Negative); Protein-Dipstick 100 mg/dl (Negative); Urine Bilirubin Dipstick Negative (Negative); Urine Clarity Clear (Clear); Urine Urobilinogen Normal (Normal)
[2023-10-20 17:45] LABS: Bedside Glucose 222 mg/dL (74-106)
[2023-10-20] MEDS: Gabapentin 800 MG Tablet PO ×2 (17:49→21:57)
[2023-10-20] MEDS: Insulin Lispro 100 UNIT/ML INSULN.PEN SC (17:49)
[2023-10-20 17:54] LABS: Red Blood Cells-Urine 0-5 SEEN /hpf (0-5); Squamous Epithelial Cells - UA 0-5 SEEN /hpf (0-5)
[2023-10-20] MEDS: oxyCODONE 5 MG Tablet PO (18:31)
[2023-10-20] MEDS: Acetaminophen 325 MG Tablet 650 MG PO (18:31)
[2023-10-20 20:09] LABS: M R Staph aureus DNA By PCR Negative (Negative); Probe Check PASS; Specimen Processing Control PASS; Staph aureus DNA By PCR POSITIVE (Negative)
[2023-10-20 21:38] VITALS: BP 144/76; PULSE 55; RESP 16; TEMP 36.6; O2SAT 99
[2023-10-20] MEDS: Meropenem 500 MG in 0.9% Normal Saline (50mL MB+) 50 ML 100 MG IV (21:55)
[2023-10-20] MEDS: Atorvastatin Calcium 80 MG Tablet PO (21:56)
[2023-10-20] MEDS: Lisinopril 10 MG Tablet PO (21:56)
[2023-10-20 22:16] LABS: Bedside Glucose 223 mg/dL (74-106)
[2023-10-21 01:21] VITALS: BP 150/80; PULSE 65; RESP 18; TEMP 36.7; O2SAT 97
[2023-10-21] MEDS: oxyCODONE 5 MG Tablet PO ×3 (01:24→16:39)
[2023-10-21] MEDS: Acetaminophen 325 MG Tablet 650 MG PO ×3 (01:24→16:40)
[2023-10-21] MEDS: Vancomycin HCl 1,750 MG in 0.9% Normal Saline (500mL Bag) 500 ML 250 MG IV ×2 (03:27→16:39)
[2023-10-21 05:15] VITALS: BMI 40.3
[2023-10-21 05:52] LABS: Absolute Neutrophil Count 4.8 X10^3/uL (2.0-7.7); Basophil# 0.05 X10^3/uL; Basophil% 0.6 % (0-1); Eosinophil# 0.66 X10^3/uL; Eosinophils% 8.1 % (0-5); Hematocrit 33.9 % (40-54); Hemoglobin 10.6 g/dL (13.0-16.5); Lymphocyte % 23.3 % (19-41); Mean Corp Hgb Conc 31.3 g/dL (32-36); Mean Corpuscular Volume 92.6 fL (80-94); Mean Platelet Vol. 11.9 fl (6.2-12.0); Monocyte# 0.69 X10^3/uL; Monocyte% 8.4 % (0-10); NRBC Flagged by Analyzer 0 % (0-5); Neutrophil # 4.83 X10^3/uL (2.7-7.7); Neutrophil % 59.1 % (47-70); Platelet Count 168 K/mm3 (150-450); RBC Distribution Width CV 13.2 % (11.6-14.6); RBC Distribution Width SD 45.1 fl (35.1-43.9); Red Blood Count 3.66 M/mm3 (4.6-6.2); White Blood Count 8.2 K/mm3 (4.4-11.0)
[2023-10-21 06:00] VITALS: BP 141/65; PULSE 67; RESP 18; TEMP 36.8; O2SAT 95
[2023-10-21] MEDS: Meropenem 500 MG in 0.9% Normal Saline (50mL MB+) 50 ML 100 MG IV ×3 (06:05→21:59)
[2023-10-21 06:15] LABS: ALB/GLOB Ratio 0.8 RATIO (0.9-2.4); AST(SGOT) 13 U/L (15-37); Alanine Aminotransfer ALT/SGPT 12 U/L (16-61); Albumin, Serum 2.4 g/dL (3.2-5.0); Alkaline Phosphatase 99 U/L (45-117); Anion Gap 3 (5-15); BUN 18 mg/dL (7-18); BUN/Creat Ratio 15.9 RATIO (10-20); Calcium,Total 8.7 mg/dL (8.5-10.1); Chloride 108 mmol/L (98-107); Creatinine, Serum 1.13 mg/dL (0.70-1.30); EST Glomerular Filtration Rate 67 mL/min (>60); Est Glom Filt Rate - Afr Amer 81 mL/min (>60); Estimated Creatinine Clearance 79.13 ml/min; Glucose 255 mg/dL (74-106); Magnesium 1.8 mg/dL (1.6-2.6); Phosphorus 2.6 mg/dL (2.5-4.9); Potassium 4.3 mmol/L (3.5-5.1); Protein, Total 5.4 g/dL (6.4-8.2); Sodium Level 137 mmol/L (136-145)
--- NOTE | 2023-10-21 07:26 | PCM.PN.HOSP ---
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 Objective Data Objective Data Vital Signs: Vital Signs Temp Pulse Resp BP Pulse Ox O2 Del Method 36.8 C 67 18 141/65 H 95 Room Air 10/21/23 06:00 10/21/23 06:00 10/21/23 06:00 10/21/23 06:00 10/21/23 06:00 10/21/23 06:00 Oxygen Delivery Method Room Air Weight: 135.1 kg Body Mass Index (BMI) 40.3 Intake & Output: Intake and Output for Last 24 Hours 10/19/23 10/20/23 10/21/23 23:59 23:59 23:59 Intake Total 1170 / 1870 1235 / 1235 Output Total 650 / 1350 1400 / 1400 Balance 520 / 520 -165 / -165 Lab / Micro Data 10/21/23 05:10 10/21/23 05:10 Labs: Laboratory Results - last 24 hr 10/20/23 14:12: WBC 10.5, RBC 4.00 L, Hgb 11.8 L, Hct 37.2 L, MCV 93.0, MCH 29.5, MCHC 31.7 L, RDW Std Deviation 45.8 H, RDW Coeff of King 13.4, Plt Count 214, MPV 11.6, Immature Gran % (Auto) 0.300, Neut % (Auto) 57.8, Lymph % (Auto) 22.9, [place] % (Auto) 9.9, Eos % (Auto) 8.3 H, Baso % (Auto) 0.8, Absolute Neuts (auto) 6.1, Absolute Lymphs (auto) 2.41, Nucleated RBC % 0, ESR 10, PT 17.8 H, INR 1.5, APTT 33.2, Sodium 139, Potassium 4.5, Chloride 107, Carbon Dioxide 27.0, Anion Gap 5, BUN 20 H, Creatinine 1.27, Est GFR (MDRD) Af Amer 71, Est GFR (MDRD) Non-Af 59 L, BUN/Creatinine Ratio 15.7, Glucose 204 H, Lactic Acid 1.3, Calcium 9.3, Total Bilirubin 0.80, AST 14 L, ALT 19, Alkaline Phosphatase 118 H, C-React Prot Ext Range 15.60 H, Total Protein 6.3 L, Albumin 2.9 L, Globulin 3.4, Albumin/Globulin Ratio 0.9 10/20/23 17:18: POC Glucose 222 H 10/20/23 17:30: Urine Color Yellow, Urine Clarity Clear, Urine pH 6.0, Ur Specific [place] 1.010, Urine Protein 100 H, Urine Glucose (UA) Normal, Urine Ketones Negative, Urine Occult Blood 10 H, Urine Nitrite Negative, Urine Bilirubin Negative, Urine Urobilinogen Normal, Ur Leukocyte Esterase Negative, Urine RBC 0-5 SEEN, Urine WBC 0 SEEN, Ur Squamous Epith Cells 0-5 SEEN, Urine Bacteria 0 SEEN, Urine Mucus 0 SEEN, S.aureus Protein A PCR POSITIVE H, MRSA (PCR) Negative 10/20/23 21:48: POC Glucose 223 H 10/21/23 05:10: WBC 8.2, RBC 3.66 L, Hgb 10.6 L, Hct 33.9 L, MCV 92.6, MCH 29.0, MCHC 31.3 L, RDW Std Deviation 45.1 H, RDW Coeff of King 13.2, Plt Count 168, MPV 11.9, Immature Gran % (Auto) 0.500, Neut % (Auto) 59.1, Lymph % (Auto) 23.3, [place] % (Auto) 8.4, Eos % (Auto) 8.1 H, Baso % (Auto) 0.6, Absolute Neuts (auto) 4.8, Absolute Lymphs (auto) 1.90, Nucleated RBC % 0, Sodium 137, Potassium 4.3, Chloride 108 H, Carbon Dioxide 26.0, Anion Gap 3 L, BUN 18, Creatinine 1.13, Estim Creat Clear Calc 79.13, Est GFR (MDRD) Af Amer 81, Est GFR (MDRD) Non-Af 67, BUN/Creatinine Ratio 15.9, Glucose 255 H, Calcium 8.7, Phosphorus 2.6, Magnesium 1.8, Total Bilirubin 0.70, AST 13 L, ALT 12 L, Alkaline Phosphatase 99, Total Protein 5.4 L, Albumin 2.4 L, Globulin 3.0, Albumin/Globulin Ratio 0.8 L, TSH 1.140 Radiography Diagnostic Testing: Radiology Impression Foot X-Ray 10/20/23 14:32 IMPRESSION: Osteopenia, osteoarthritic changes most marked in the MTP and IP joints and diffuse soft tissue swelling. Electronically Signed: Tyshawn Seaman MD at 14:43 EDT Reading Location ID and State: [facility] / [place] , Service support , Physical Exam Const alert and no apparent distress HEENT head/scalp atraumatic and moist oral mucous membranes Resp normal respiratory effort, no retractions, no use of accessory muscles and clear to auscultation bilaterally Cardio regular rate, regular rhythm and S1 normal heart sound GI normal to inspection, nondistended, normoactive bowel sounds, soft to palpation, non-tender, non-distended and hepatosplenomegaly Extremity Extremity Narrative: left foot wrapped. did not remove. Neuro Sensorium / Orientation: awake and alert Assessment & Plan Assessment/Plan (1) Failure of outpatient treatment: (2) Cellulitis of left lower leg: (3) Diabetic foot infection: (4) Chronic anticoagulation: PLAN: Plan Left lower extremity cellulitis with ulceration/diabetic foot infection Patient did have MRI on 09/24/2023 which does not show any signs of osteomyelitis at this time however the sinus tract. Abx with meropenem and vancomycin (previously failed multiple oral antibiotics as an outpatient) Follow up wound and blood cultures Podiatry for debridement. Plan for surgery next week. ID for long-term IV abx. DM-2, insulin-dependent. uncontrolled takes home Humalog 30 units to 3 times daily. Will change to glargine 20 units BID. and SSI. A1c 6.3 continue SSI would benefit from basal insulin upon discharge Itching no evidence of rash. Suspect irritation from lying on his back. Chronic conditions: Diabetic neuropathy-Continue home gabapentin hypertension/hyperlipidemia: -Hold home Lasix as this is ordered as needed and monitor swelling-Continue home enalapril-Continue home atorvastatin PAF-Patient is not on any rate controlling as an rates are able-Resume apixaban. Hold prior to surgery. 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 DVT prophylaxis-Last dose of apixaban was this morning-Apixaban is currently on hold-SCDs for now CODE STATUS-DNR CCA with no intubation Charges/Coding Visit Charges Inpatient E&M: 67589 Subs Hosp L2
[2023-10-21 08:01] LABS: Hemoglobin A1c 6.3 % (3.8-5.6)
[2023-10-21] MEDS: Loratadine 10 MG Tablet PO (08:59)
[2023-10-21] MEDS: Juven (unflavored) Packet 2 PACKET PO (09:00)
[2023-10-21] MEDS: Gabapentin 800 MG Tablet PO ×4 (09:00→22:09)
[2023-10-21] MEDS: Pantoprazole Sodium 40 MG Tablet PO (09:01)
[2023-10-21] MEDS: Lisinopril 10 MG Tablet PO ×2 (09:01→22:09)
[2023-10-21] MEDS: amLODIPine 5 MG Tablet PO (09:01)
[2023-10-21] MEDS: Finasteride 5 MG Tablet PO (09:01)
[2023-10-21] MEDS: Insulin Lispro 100 UNIT/ML INSULN.PEN 30 UNIT SC (09:08)
[2023-10-21] MEDS: Insulin Lispro 100 UNIT/ML INSULN.PEN SC ×2 (09:09→16:42)
[2023-10-21 09:13] VITALS: BP 158/85; PULSE 57; RESP 18; TEMP 36.9; O2SAT 97
--- NOTE | 2023-10-21 10:15 | CASEMGMT ---
DOMINIC MARIE Assessment: Face to Face with pt for initial transition planning/care coordination assessment. DOMINIC MARIE introduced self and role at [facility], pt voices understanding and consents to assessment. Pt is A&O x4 and answers all questions appropriately at this time. Pt is legally blind. Pt sitting up in bed eating breakfast with at bedside. Pt agreeable to assessment with present. Care providers, pharmacy, and demographics verified/updated. Admitting Dx: diabetic foot infection, failed outpt therapy Strata Score: 2 PCP:Zoraida Specialists:Zana, pod; Mikey, ID; Josi, pain mgmt Preferred Pharmacy: [facility] Insurance: [facility], MMO Prescription Benefit: yes LNOK: Janey Renae, Living Arrangements: Pt lives with and nephew who is currently homeless in a mobile home with a ramp to enter. Pt reports he has been sponge bathing and has been assisting him with most ADL and all IADL recently. Pt denies concerns at home. Transportation: Pt provides transportation. DME:[employer] with sufficient supply of strips and lancets; insulin with sufficient supply and needles; FWW, cane, shower chair and are in the process of getting a transport w/c. HHC/SNF: Pt has had [facility] past [facility]. Pt states no concerns with going home at time of dc. Pt states his has been changing his dressing changes up to this point. She reports she is comfortable doing this. Pt is agreeable to [facility] to assist with wound healing and education as well as therapy. Noted 6 clicks=14, therapy ordered but has not eval'd. Discussed should pt need IV atb if this is something that pt would want to do at home. Pt states that he does not want to go back to a SNF. Pt reports he was satisfied with [facility] and would like them again, pt and deny the need for a list of other options. Pt states no further concerns/needs. CM to follow. Advised pt to ask CM if any further question/concerns/needs arise, voices understanding. Pt Goal: Home with HHC Plan: Home with HHC, pending therapy and ID consult Alayna ALFARO CM
[2023-10-21 12:00] VITALS: BP 155/74; PULSE 54; RESP 18; TEMP 37.1; O2SAT 98
--- NOTE | 2023-10-21 12:51 | CASEMGMT ---
DOMINIC MARIE NOTE: DOMINIC MARIE spoke w/Krystle/therapy who states if pt allowed to stand/pivot to W/C then he would be safe to discharge home w/assist of , but states if pt will be strict NWB then she would recommend SNF. Pt also to have surgery next week Mon or Tues per Dr Jensen and states will need IV atb's @ discharge. D/C Plan: TBD. CYNTHIA to follow for safe discharge plan. Nakita BSN DOMINIC CM
--- NOTE | 2023-10-21 13:29 | CON.PCM_ITS ---
Assessment & Plan Assessment/Plan (1) Cellulitis of left lower limb: PLAN: Exam performed. Admission recommended per Dr. Sapnn Examined wound site today. Noted to be full-thickness wound with wound maceration and diffuse uncontrolled edema as well as obvious cellulitis at current. ID consulted patient on vancomycin and Zosyn. Cultures of left heel wound from 10/19 growing gram-negative susie possible Staphylococcus species. Recommend daily Betadine wet-to-dry dressings with a dry sterile dressing as well as Kd bandage for compression wrap from the base of the toes to proximal calf. Recommend nonweightbearing to left lower extremity. Dr. Spann to reevaluate for possible surgical debridement on Tuesday next week. (2) Non-pressure chronic ulcer of other part of left foot with fat layer exposed: HPI Consult Data Date of Consult: 10/21/23 HPI Narrative HPI Narrative: MACHELLE SHARP, is a 77 M who presents chronic wound to left lower extremity with cellulitis. Failed local wound care in the outpatient setting. MRI demonstrate possible fluid collection or phlegmon phenomenon. Patient admitted to receive IV antibiotics with possible wound debridement per Dr. Oliveros on Tuesday. Denies constitutional symptoms at current. Patient denies any other complaints. Patient has history of peripheral vascular disease. [facility] Medical History Anemia Cancer Current use of insulin Back pain due to injury Injury of head and neck History of stress test Rheumatic fever Wears hearing aid in both ears Blindness of both eyes Hearing loss, left Hearing loss, right Hypothyroidism Diabetes Chronic pain Former smoker Atrial fibrillation Hypertension DVT (deep venous thrombosis) History of diabetes mellitus History of atrial fibrillation Frequent PVCs Paroxysmal atrial fibrillation Renal insufficiency Retinitis pigmentosa Hypothyroidism Hyperlipidemia Insomnia GERD (gastroesophageal reflux disease) Legal blindness Osteoarthritis Essential hypertension Sepsis Chronic back pain UTI (urinary tract infection) Acute renal failure Type II diabetes mellitus Home Medications ?Medication ?Instructions ?Recorded ?Last Taken ?Type gabapentin 800 mg tablet 800 mg PO 4XD 08/21/13 10/25/14 04:00 History omeprazole 40 mg capsule,delayed 40 mg PO DAILY 08/21/13 10/25/14 04:00 History release atorvastatin 80 mg tablet 80 mg PO QHS 07/25/14 Unknown History finasteride 5 mg tablet 1 tab PO DAILY 01/23/20 Unknown History hydrocodone 10 mg-acetaminophen 1 tab PO 4X/DAY 01/23/20 Unknown History 325 mg tablet cholecalciferol (vitamin D3) 125 125 mcg PO DAILY 04/11/20 Unknown History mcg (5,000 unit) capsule furosemide 40 mg tablet 40 - 80 mg PO DAILY PRN edema 04/11/20 Unknown History apixaban 5 mg tablet (Eliquis) 5 mg PO BID 07/02/20 Unknown History insulin aspart U-100 100 unit/mL 30 unit subcut TID 08/26/22 Unknown History (3 mL) subcutaneous pen (Novolog FlexPen U-100 Insulin aspart) amlodipine 5 mg tablet 5 mg PO DAILY 03/30/23 Unknown History ondansetron 4 mg disintegrating 4 mg PO Q12H PRN nausea and 03/30/23 Unknown History tablet vomiting enalapril maleate 10 mg tablet 10 mg PO BID 08/29/23 Unknown History levothyroxine 25 mcg tablet mcg PO 08/29/23 Unknown History zfgojdhn-ofn-uboya acid 0.4 1 tab PO DAILY 08/29/23 Unknown History mg-lycopene 300 mcg-lutein 250 mcg tablet (Centrum Silver) doxycycline hyclate 100 mg capsule 100 mg PO BID 2 weeks #28 caps 09/07/23 Unknown Rx cetirizine 10 mg tablet (24Hour 10 mg PO BID PRN allergy symptoms 10/20/23 Unknown History Allergy) vitamin E 800 unit capsule 800 unit PO DAILY 10/20/23 Unknown History Allergy/AdvReac Type Severity Reaction Status Date / Time Sulfa (Sulfonamide Allergy Shortness Verified 10/20/23 13:26 Antibiotics) of breath Gadolinium-MRI Contrast AdvReac Vomiting Verified 10/20/23 13:26 Medium (MRI) Family History Sister Cancer ovarian Mother CVA (cerebral vascular accident) Diabetes Father Cancer malignant melanona, bladder Brother Myocardial infarction Brother Myocardial infarction Brother Lung cancer Surgical History History of cholecystectomy (~10/2022) History of left heart catheterization (04/16/20) History of thumb surgery History of vein stripping History of carpal tunnel surgery of left wrist History of discectomy History of spinal fusion History of surgery on wrist History of elbow surgery History of arthroscopy of knee History of cataract extraction History of transurethral resection of prostate Social History household members: spouse and other details: nephew Smoking Status: Former smoker Tobacco: How many years used: 10 how long ago did patient quit smokin years ago alcohol intake: never substance use type: does not use caffeine: Yes Type: carbonated beverages Number of servings: 5 what type of physical activity do you participate in: none seatbelt use: always do you feel safe at home: Yes Physical Exam Narrative Neurovascular status noted to be intact. There is diffuse pitting edema to left lower extremity with erythema extending from the heel wound into the midfoot as well as proximally into the ankle. No fluctuance crepitus noted at this time. There is a full-thickness wound to the medial heel with diffuse periwound erythema maceration malodor and moderate serous drainage. Wound demonstrates a mixed fibrogranular base at current. No gross musculoskeletal deformity contributing to wound formation. Lab / Micro Data 10/21/23 05:10 10/21/23 05:10 Labs: Laboratory Results - last 24 hr 10/20/23 14:12: WBC 10.5, RBC 4.00 L, Hgb 11.8 L, Hct 37.2 L, MCV 93.0, MCH 29.5, MCHC 31.7 L, RDW Std Deviation 45.8 H, RDW Coeff of King 13.4, Plt Count 214, MPV 11.6, Immature Gran % (Auto) 0.300, Neut % (Auto) 57.8, Lymph % (Auto) 22.9, [place] % (Auto) 9.9, Eos % (Auto) 8.3 H, Baso % (Auto) 0.8, Absolute Neuts (auto) 6.1, Absolute Lymphs (auto) 2.41, Nucleated RBC % 0, ESR 10, PT 17.8 H, INR 1.5, APTT 33.2, Sodium 139, Potassium 4.5, Chloride 107, Carbon Dioxide 27.0, Anion Gap 5, BUN 20 H, Creatinine 1.27, Est GFR (MDRD) Af Amer 71, Est GFR (MDRD) Non-Af 59 L, BUN/Creatinine Ratio 15.7, Glucose 204 H, Lactic Acid 1.3, Calcium 9.3, Total Bilirubin 0.80, AST 14 L, ALT 19, Alkaline Phosphatase 118 H, C-React Prot Ext Range 15.60 H, Total Protein 6.3 L, Albumin 2.9 L, Globulin 3.4, Albumin/Globulin Ratio 0.9 10/20/23 17:18: POC Glucose 222 H 10/20/23 17:30: Urine Color Yellow, Urine Clarity Clear, Urine pH 6.0, Ur Specific [place] 1.010, Urine Protein 100 H, Urine Glucose (UA) Normal, Urine Ketones Negative, Urine Occult Blood 10 H, Urine Nitrite Negative, Urine Bilirubin Negative, Urine Urobilinogen Normal, Ur Leukocyte Esterase Negative, Urine RBC 0-5 SEEN, Urine WBC 0 SEEN, Ur Squamous Epith Cells 0-5 SEEN, Urine Bacteria 0 SEEN, Urine Mucus 0 SEEN, S.aureus Protein A PCR POSITIVE H, MRSA (PCR) Negative 10/20/23 21:48: POC Glucose 223 H 10/21/23 05:10: WBC 8.2, RBC 3.66 L, Hgb 10.6 L, Hct 33.9 L, MCV 92.6, MCH 29.0, MCHC 31.3 L, RDW Std Deviation 45.1 H, RDW Coeff of King 13.2, Plt Count 168, MPV 11.9, Immature Gran % (Auto) 0.500, Neut % (Auto) 59.1, Lymph % (Auto) 23.3, [place] % (Auto) 8.4, Eos % (Auto) 8.1 H, Baso % (Auto) 0.6, Absolute Neuts (auto) 4.8, Absolute Lymphs (auto) 1.90, Nucleated RBC % 0, Sodium 137, Potassium 4.3, Chloride 108 H, Carbon Dioxide 26.0, Anion Gap 3 L, BUN 18, Creatinine 1.13, Estim Creat Clear Calc 79.13, Est GFR (MDRD) Af Amer 81, Est GFR (MDRD) Non-Af 67, BUN/Creatinine Ratio 15.9, Glucose 255 H, Hemoglobin A1c 6.3 H, Calcium 8.7, Phosphorus 2.6, Magnesium 1.8, Total Bilirubin 0.70, AST 13 L, ALT 12 L, Alkaline Phosphatase 99, Total Protein 5.4 L, Albumin 2.4 L, Globulin 3.0, A lbumin/Globulin Ratio 0.8 L, TSH 1.140 Micro: Microbiology 10/20/23 17:30 Wound - Left Foot Gram Stain - Final 10/20/23 17:30 Wound - Left Foot Wound Culture - Preliminary Gram negative susie Staphylococcus species Imaging Radiology Impression Foot X-Ray 10/20/23 14:32 IMPRESSION: Osteopenia, osteoarthritic changes most marked in the MTP and IP joints and diffuse soft tissue swelling. Electronically Signed: Tyshawn Seaman MD at 14:43 EDT ,
--- NOTE | 2023-10-21 13:37 | CON.PCM.ID_ITS ---
Assessment & Plan Assessment/Plan (1) Cellulitis of left lower limb: PLAN: On vanc/zosyn, wound cx with GNR and staph aureus. Podiatry following. Will follow, thank you (2) Type 2 diabetes mellitus with diabetic polyneuropathy: HPI Consult Data Date of Consult: 10/21/23 HPI Narrative Reason for Consultation: foot infection HPI Narrative: MACHELLE SHARP, is a 77 M with DM neuropathy, follows with Dr. Spann at wound center. Had about one week worsening L heel redness, ulceration, and drainage. No fever, no chills, no pain. Had been on doxy and augmentin about a month ago. Due to acute worsening of foot, sent to ED, admitted on vanc/zosyn, feeling ok, some mild itching. Full ROS performed and neg except as noted above. [facility] Medical History Anemia Cancer Current use of insulin Back pain due to injury Injury of head and neck History of stress test Rheumatic fever Wears hearing aid in both ears Blindness of both eyes Hearing loss, left Hearing loss, right Hypothyroidism Diabetes Chronic pain Former smoker Atrial fibrillation Hypertension DVT (deep venous thrombosis) History of diabetes mellitus History of atrial fibrillation Frequent PVCs Paroxysmal atrial fibrillation Renal insufficiency Retinitis pigmentosa Hypothyroidism Hyperlipidemia Insomnia GERD (gastroesophageal reflux disease) Legal blindness Osteoarthritis Essential hypertension Sepsis Chronic back pain UTI (urinary tract infection) Acute renal failure Type II diabetes mellitus Home Medications ?Medication ?Instructions ?Recorded ?Last Taken ?Type gabapentin 800 mg tablet 800 mg PO 4XD 08/21/13 10/25/14 04:00 History omeprazole 40 mg capsule,delayed 40 mg PO DAILY 08/21/13 10/25/14 04:00 History release atorvastatin 80 mg tablet 80 mg PO QHS 07/25/14 Unknown History finasteride 5 mg tablet 1 tab PO DAILY 01/23/20 Unknown History hydrocodone 10 mg-acetaminophen 1 tab PO 4X/DAY 01/23/20 Unknown History 325 mg tablet cholecalciferol (vitamin D3) 125 125 mcg PO DAILY 04/11/20 Unknown History mcg (5,000 unit) capsule furosemide 40 mg tablet 40 - 80 mg PO DAILY PRN edema 04/11/20 Unknown History apixaban 5 mg tablet (Eliquis) 5 mg PO BID 07/02/20 Unknown History insulin aspart U-100 100 unit/mL 30 unit subcut TID 08/26/22 Unknown History (3 mL) subcutaneous pen (Novolog FlexPen U-100 Insulin aspart) amlodipine 5 mg tablet 5 mg PO DAILY 03/30/23 Unknown History ondansetron 4 mg disintegrating 4 mg PO Q12H PRN nausea and 03/30/23 Unknown History tablet vomiting enalapril maleate 10 mg tablet 10 mg PO BID 08/29/23 Unknown History levothyroxine 25 mcg tablet mcg PO 08/29/23 Unknown History klhaczbl-fxk-voijd acid 0.4 1 tab PO DAILY 08/29/23 Unknown History mg-lycopene 300 mcg-lutein 250 mcg tablet (Centrum Silver) doxycycline hyclate 100 mg capsule 100 mg PO BID 2 weeks #28 caps 09/07/23 Unknown Rx cetirizine 10 mg tablet (24Hour 10 mg PO BID PRN allergy symptoms 10/20/23 Unknown History Allergy) vitamin E 800 unit capsule 800 unit PO DAILY 10/20/23 Unknown History Allergy/AdvReac Type Severity Reaction Status Date / Time Sulfa (Sulfonamide Allergy Shortness Verified 10/20/23 13:26 Antibiotics) of breath Gadolinium-MRI Contrast AdvReac Vomiting Verified 10/20/23 13:26 Medium (MRI) Family History Sister Cancer ovarian Mother CVA (cerebral vascular accident) Diabetes Father Cancer malignant melanona, bladder Brother Myocardial infarction Brother Myocardial infarction Brother Lung cancer Surgical History History of cholecystectomy (~10/2022) History of left heart catheterization (04/16/20) History of thumb surgery History of vein stripping History of carpal tunnel surgery of left wrist History of discectomy History of spinal fusion History of surgery on wrist History of elbow surgery History of arthroscopy of knee History of cataract extraction History of transurethral resection of prostate Social History household members: spouse and other details: nephew Smoking Status: Former smoker Tobacco: How many years used: 10 how long ago did patient quit smokin years ago alcohol intake: never substance use type: does not use caffeine: Yes Type: carbonated beverages Number of servings: 5 what type of physical activity do you participate in: none seatbelt use: always do you feel safe at home: Yes Physical Exam Const alert and no apparent distress General Appearance: cooperative HEENT normocephalic and head/scalp atraumatic Neck supple and No nodes Resp normal air movement and clear to auscultation bilaterally Cardio regular rate and regular rhythm GI soft to palpation, non-tender and non-distended Extremity General Extremity: edema Skin Skin Narrative: L heel macerated with redness Neuro CN's II-XII intact bilaterally Lab / Micro Data Attestation: I reviewed the patient's lab results. 10/21/23 05:10 10/21/23 05:10 Labs: Laboratory Results - last 24 hr 10/20/23 14:12: WBC 10.5, RBC 4.00 L, Hgb 11.8 L, Hct 37.2 L, MCV 93.0, MCH 29.5, MCHC 31.7 L, RDW Std Deviation 45.8 H, RDW Coeff of King 13.4, Plt Count 214, MPV 11.6, Immature Gran % (Auto) 0.300, Neut % (Auto) 57.8, Lymph % (Auto) 22.9, [place] % (Auto) 9.9, Eos % (Auto) 8.3 H, Baso % (Auto) 0.8, Absolute Neuts (auto) 6.1, Absolute Lymphs (auto) 2.41, Nucleated RBC % 0, ESR 10, PT 17.8 H, INR 1.5, APTT 33.2, Sodium 139, Potassium 4.5, Chloride 107, Carbon Dioxide 27.0, Anion Gap 5, BUN 20 H, Creatinine 1.27, Est GFR (MDRD) Af Amer 71, Est GFR (MDRD) Non-Af 59 L, BUN/Creatinine Ratio 15.7, Glucose 204 H, Lactic Acid 1.3, Calcium 9.3, Total Bilirubin 0.80, AST 14 L, ALT 19, Alkaline Phosphatase 118 H, C-React Prot Ext Range 15.60 H, Total Protein 6.3 L, Albumin 2.9 L, Globulin 3.4, Albumin/Globulin Ratio 0.9 10/20/23 17:18: POC Glucose 222 H 10/20/23 17:30: Urine Color Yellow, Urine Clarity Clear, Urine pH 6.0, Ur Specific [place] 1.010, Urine Protein 100 H, Urine Glucose (UA) Normal, Urine Ketones Negative, Urine Occult Blood 10 H, Urine Nitrite Negative, Urine Bilirubin Negative, Urine Urobilinogen Normal, Ur Leukocyte Esterase Negative, Urine RBC 0-5 SEEN, Urine WBC 0 SEEN, Ur Squamous Epith Cells 0-5 SEEN, Urine Bacteria 0 SEEN, Urine Mucus 0 SEEN, S.aureus Protein A PCR POSITIVE H, MRSA (PCR) Negative 10/20/23 21:48: POC Glucose 223 H 10/21/23 05:10: WBC 8.2, RBC 3.66 L, Hgb 10.6 L, Hct 33.9 L, MCV 92.6, MCH 29.0, MCHC 31.3 L, RDW Std Deviation 45.1 H, RDW Coeff of King 13.2, Plt Count 168, MPV 11.9, Immature Gran % (Auto) 0.500, Neut % (Auto) 59.1, Lymph % (Auto) 23.3, [place] % (Auto) 8.4, Eos % (Auto) 8.1 H, Baso % (Auto) 0.6, Absolute Neuts (auto) 4.8, Absolute Lymphs (auto) 1.90, Nucleated RBC % 0, Sodium 137, Potassium 4.3, Chloride 108 H, Carbon Dioxide 26.0, Anion Gap 3 L, BUN 18, Creatinine 1.13, Estim Creat Clear Calc 79.13, Est GFR (MDRD) Af Amer 81, Est GFR (MDRD) Non-Af 67, BUN/Creatinine Ratio 15.9, Glucose 255 H, Hemoglobin A1c 6.3 H, Calcium 8.7, Phosphorus 2.6, Magnesium 1.8, Total Bilirubin 0.70, AST 13 L, ALT 12 L, Alkaline Phosphatase 99, Total Protein 5.4 L, Albumin 2.4 L, Globulin 3.0, A lbumin/Globulin Ratio 0.8 L, TSH 1.140 Micro: Microbiology 10/20/23 17:30 Wound - Left Foot Gram Stain - Final 10/20/23 17:30 Wound - Left Foot Wound Culture - Preliminary Gram negative susie Staphylococcus species Imaging Radiology Impression Foot X-Ray 10/20/23 14:32 IMPRESSION: Osteopenia, osteoarthritic changes most marked in the MTP and IP joints and diffuse soft tissue swelling. Electronically Signed: Tyshawn Seaman MD at 14:43 EDT ,
[2023-10-21 15:18] LABS: Bedside Glucose 121 mg/dL (74-106)
--- NOTE | 2023-10-21 15:52 | CHAPLAIN ---
Type of Pastoral Visit _x__ Initial Visit ___ Follow-up Visit ___ On-call Visit ___ General Patient Visit ___ Spiritual Assessment ___ Family Conference ___ Bereavement ___ Rapid Response ___ Code Blue ___ Other (describe below) Pastoral Care Referral From _x__ Patient ___ Family ___ Nurse ___ Physician ___ Gag Writer ___ Binding Dyer ___ Other (describe below) Sacrament/Intervention _x__ Active listening ___ Anointing ___ Baptist ___ Bereavement ___ Communion _x__ Zunilda exploration ___ _x__ Life review _x__ Prayer ___ Reconciliation ___ Sacrament of Sick ___ Supportive presence ___ Wedding ___ Other (describe below) Pastoral Comments patient and spouse are together in the room; pt and spouse give some life review and their past affiliations with zunilda community and service in churches; pt shows some humor in conversation and does not ask for anything but a prayer; pt and spouse accepting of situation and are expressive of time for visit and spiritual care support
[2023-10-21 17:05] LABS: Bedside Glucose 160 mg/dL (74-106)
[2023-10-21 17:13] VITALS: BP 168/77; PULSE 50; RESP 18; TEMP 36.7; O2SAT 98
[2023-10-21 20:39] VITALS: BP 146/81; PULSE 95; RESP 15; TEMP 36.6; O2SAT 100
[2023-10-21] MEDS: APIXABAN 5 MG TABLET PO (22:09)
[2023-10-21] MEDS: Atorvastatin Calcium 80 MG Tablet PO (22:09)
[2023-10-21] MEDS: Insulin Glargine-YFGN 100 UNIT/ML Pen 20 UNIT SC (22:10)
[2023-10-21 22:22] LABS: Bedside Glucose 273 mg/dL (74-106)
[2023-10-22 03:49] LABS: Absolute Lymphocyte Count 2.36 X10^3/uL (0.83-4.51); Absolute Neutrophil Count 4.9 X10^3/uL (2.0-7.7); Basophil# 0.06 X10^3/uL; Basophil% 0.7 % (0-1); Eosinophil# 0.75 X10^3/uL; Eosinophils% 8.5 % (0-5); Hematocrit 36.3 % (40-54); Hemoglobin 11.7 g/dL (13.0-16.5); Lymphocyte # 2.36 X10^3/ul (0.83-4.51); Lymphocyte % 26.6 % (19-41); Mean Corp Hgb Conc 32.2 g/dL (32-36); Mean Corpuscular Hgb 29.6 pg (27.0-32.0); Mean Corpuscular Volume 91.9 fL (80-94); Mean Platelet Vol. 11.6 fl (6.2-12.0); Monocyte# 0.77 X10^3/uL; Monocyte% 8.7 % (0-10); NRBC Flagged by Analyzer 0 % (0-5); Neutrophil # 4.89 X10^3/uL (2.7-7.7); Platelet Count 217 K/mm3 (150-450); RBC Distribution Width CV 13.2 % (11.6-14.6); RBC Distribution Width SD 44.5 fl (35.1-43.9); Red Blood Count 3.95 M/mm3 (4.6-6.2); White Blood Count 8.9 K/mm3 (4.4-11.0)
[2023-10-22 04:00] VITALS: BP 174/90; PULSE 68; RESP 15; TEMP 36.7; O2SAT 98
[2023-10-22 04:05] LABS: Anion Gap 3 (5-15); BUN 16 mg/dL (7-18); BUN/Creat Ratio 14.4 RATIO (10-20); Calcium,Total 9.2 mg/dL (8.5-10.1); Chloride 107 mmol/L (98-107); Creatinine, Serum 1.11 mg/dL (0.70-1.30); EST Glomerular Filtration Rate 68 mL/min (>60); Est Glom Filt Rate - Afr Amer 83 mL/min (>60); Estimated Creatinine Clearance 80.56 ml/min; Glucose 288 mg/dL (74-106); Potassium 4.5 mmol/L (3.5-5.1); Sodium Level 139 mmol/L (136-145)
[2023-10-22 04:06] LABS: Vancomycin, Trough Level 24.6 ug/mL (5.0-15.0)
--- NOTE | 2023-10-22 04:13 | PCM.RX.CS ---
Consult Antibiotic Management Pharmacy has been consulted to manage selected antibiotic: Vancomycin Type of Intervention Type of Consult: Follow-up Suspected Infection Suspected Infection: Skin/Soft tissue Labs Labs: Sodium 139 mmol/L (136-145) 10/22/23 03:30 Potassium 4.5 mmol/L (3.5-5.1) 10/22/23 03:30 Chloride 107 mmol/L (98-107) 10/22/23 03:30 Carbon Dioxide 29.0 mmol/L (21.0-32.0) 10/22/23 03:30 Anion Gap 3 (5-15) L 10/22/23 03:30 BUN 16 mg/dL (7-18) 10/22/23 03:30 Creatinine 1.11 mg/dL (0.70-1.30) 10/22/23 03:30 Est GFR (MDRD) Af Amer 83 mL/min (>60) 10/22/23 03:30 Est GFR (MDRD) Non-Af 68 mL/min (>60) 10/22/23 03:30 BUN/Creatinine Ratio 14.4 RATIO (10-20) 10/22/23 03:30 Glucose 288 mg/dL (74-106) H 10/22/23 03:30 Vancomycin Trough 24.6 ug/mL (5.0-15.0) H 10/22/23 03:30 Microbiology Microbiology: Microbiology 10/20/23 17:30 Wound - Left Foot Gram Stain - Final 10/20/23 17:30 Wound - Left Foot Wound Culture - Preliminary Gram negative susie Staphylococcus species Dosing Weight Weight used for dosin kg Estimated Creatinine Clearance Estimated Creatinine Clearance: 81 Goal Trough Goal Trough: 15-20 mcg/mL Pharmacy Plan for Drug Dosing Pharmacy Plan for Drug Dosing: Vancomycin trough level of 24.6, drawn 11hrs post-dose, was higher than the target range of 15-20. Current dosing will be held, and a random level will be drawn in 12 hours to determine further dosing. Pharmacy Service will continue to monitor and adjust dosing as required. Follow-Up Labs Follow-Up Labs: Trough: Vancomycin (random) Date/Time Labs Ordered Labs to be done on [date and time ordered]: 10/22/23 @1530 (random)
[2023-10-22] MEDS: Loratadine 10 MG Tablet PO ×2 (04:40→22:01)
[2023-10-22] MEDS: oxyCODONE 5 MG Tablet PO ×3 (04:40→21:54)
[2023-10-22] MEDS: Meropenem 500 MG in 0.9% Normal Saline (50mL MB+) 50 ML 100 MG IV ×3 (04:43→21:34)
[2023-10-22 06:00] VITALS: BMI 40.3
[2023-10-22] MEDS: Insulin Lispro 100 UNIT/ML INSULN.PEN SC ×3 (06:39→16:01)
[2023-10-22 07:00] LABS: Bedside Glucose 248 mg/dL (74-106)
--- NOTE | 2023-10-22 07:11 | PN.HOSP_ITS ---
Reason for Visit Reason for Visit: Diagnoses Type 2 diabetes mellitus with diabetic polyneuropathy (10/20/23) Type 2 diabetes mellitus with other skin complications (10/20/23) Cellulitis of left lower limb (10/20/23) Local infection of the skin and subcutaneous tissue, unspecified (10/20/23) Non-pressure chronic ulcer of other part of left foot with fat layer exposed (10/20/23) Other specified health status (10/20/23) [facility] (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 of anticoagulants (10/20/23) Subjective Subjective Wanting his gabapentin be ordered 4x daily as he takes at home for his neuropathy. Objective Data Objective Data Vital Signs: Vital Signs Temp Pulse Resp BP Pulse Ox O2 Del Method 36.7 C 68 15 174/90 H 98 Room Air 10/22/23 04:00 10/22/23 04:00 10/22/23 04:00 10/22/23 04:00 10/22/23 04:00 10/22/23 04:56 Oxygen Delivery Method Room Air Weight: 135 kg Body Mass Index (BMI) 40.3 Intake & Output: Intake and Output for Last 24 Hours 10/20/23 10/21/23 10/22/23 23:59 23:59 23:59 Intake Total 1170 / 1870 2800 / 2800 60 / 60 Output Total 650 / 1350 1400 / 1400 Balance 520 / 520 1400 / 1400 60 / 60 Lab / Micro Data 10/22/23 03:30 10/22/23 03:30 Labs: Laboratory Results - last 24 hr 10/21/23 05:10: Hemoglobin A1c 6.3 H 10/21/23 12:04: POC Glucose 121 H 10/21/23 16:38: POC Glucose 160 H 10/21/23 21:55: POC Glucose 273 H 10/22/23 03:30: WBC 8.9, RBC 3.95 L, Hgb 11.7 L, Hct 36.3 L, MCV 91.9, MCH 29.6, MCHC 32.2, RDW Std Deviation 44.5 H, RDW Coeff of [place] 13.2, Plt Count 217, MPV 11.6, Immature Gran % (Auto) 0.500, Neut % (Auto) 55.0, Lymph % (Auto) 26.6, [place] % (Auto) 8.7, Eos % (Auto) 8.5 H, Baso % (Auto) 0.7, Absolute Neuts (auto) 4.9, Absolute Lymphs (auto) 2.36, Nucleated RBC % 0, Sodium 139, Potassium 4.5, Chloride 107, Carbon Dioxide 29.0, Anion Gap 3 L, BUN 16, Creatinine 1.11, Estim Creat Clear Calc 80.56, Est GFR (MDRD) Af Amer 83, Est GFR (MDRD) Non-Af 68, BUN/Creatinine Ratio 14.4, Glucose 288 H, Calcium 9.2, Vancomycin Trough 24.6 H 10/22/23 06:37: POC Glucose 248 H Micro: Microbiology 10/20/23 17:30 Wound - Left Foot Gram Stain - Final 10/20/23 17:30 Wound - Left Foot Wound Culture - Final Pseudomonas aeruginosa Meth. resistant Staph. aureus Physical Exam Const alert and no apparent distress Resp normal respiratory effort, no retractions, no use of accessory muscles and clear to auscultation bilaterally Cardio regular rate and regular rhythm Extremity Extremity Narrative: left foot bandaged--did not remove. Assessment & Plan Assessment/Plan (1) Failure of outpatient treatment: (2) Cellulitis of left lower leg: (3) Diabetic foot infection: (4) Chronic anticoagulation: PLAN: Plan Left lower extremity cellulitis with ulceration/diabetic foot infection * Patient did have MRI on 09/24/2023 which does not show any signs of osteomyelitis at this time however the sinus tract. * Abx with meropenem and vancomycin (previously failed multiple oral antibiotics as an outpatient) * Wound Cx: Pseudomonas (resistant to Cipro, but otherwise sensitive) and MRSA * Podiatry for debridement. Plan for surgery next week. * ID for long-term IV abx. DM-2, insulin-dependent. * uncontrolled * takes home Humalog 30 units to 3 times daily. Will change to glargine 20 units BID. and SSI. * A1c 6.3 * continue SSI * would benefit from basal insulin upon discharge Itching * no evidence of rash. Suspect irritation from lying on his back. Chronic conditions: * Diabetic neuropathy-Continue home gabapentin * hypertension/hyperlipidemia: -Hold home Lasix as this is ordered as needed and monitor swelling-Continue home enalapril-Continue home atorvastatin * PAF-Patient is not on any rate controlling as an rates are able-Resume apixaban. Hold prior to surgery. 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 DVT prophylaxis-Last dose of apixaban was this morning-Apixaban is currently on hold-SCDs for now CODE STATUS-DNR CCA with no intubation Charges/Coding Visit Charges Inpatient E&M: 37202 Subs Hosp L2
[2023-10-22] MEDS: amLODIPine 5 MG Tablet PO (09:14)
[2023-10-22] MEDS: Lisinopril 10 MG Tablet PO ×2 (09:14→21:45)
[2023-10-22] MEDS: Cholecalciferol (Vit D3) 125 MCG CAPSULE (5,000 UNITS) PO (09:14)
[2023-10-22] MEDS: Finasteride 5 MG Tablet PO (09:14)
[2023-10-22] MEDS: APIXABAN 5 MG TABLET PO ×2 (09:14→21:46)
[2023-10-22] MEDS: Pantoprazole Sodium 40 MG Tablet PO (09:14)
[2023-10-22] MEDS: Gabapentin 800 MG Tablet PO ×4 (09:14→21:45)
[2023-10-22] MEDS: Insulin Glargine-YFGN 100 UNIT/ML Pen 20 UNIT SC ×2 (09:15→21:49)
[2023-10-22 09:23] VITALS: BP 158/77; PULSE 96; RESP 18; TEMP 36.8; O2SAT 98
[2023-10-22 10:58] VITALS: O2SAT 96
[2023-10-22 11:37] LABS: Bedside Glucose 245 mg/dL (74-106)
[2023-10-22] MEDS: Acetaminophen 325 MG Tablet 650 MG PO (15:54)
[2023-10-22 16:00] VITALS: BP 155/69; PULSE 86; RESP 16; TEMP 36.8; O2SAT 96
[2023-10-22 16:30] LABS: Vancomycin, Random Level 18.5 ug/mL (0.0-15.0)
[2023-10-22 16:32] LABS: Bedside Glucose 285 mg/dL (74-106)
--- NOTE | 2023-10-22 16:42 | PCM.RX.CS ---
Consult Antibiotic Management Pharmacy has been consulted to manage selected antibiotic: Vancomycin Type of Intervention Type of Consult: Follow-up Suspected Infection Suspected Infection: Skin/Soft tissue Prior Doses of Antibiotics Prior Doses of Antibiotics Received/Current Regimen: Vancomycin 1750 mg IV given /16 @ 1639 Labs Labs: Sodium 139 mmol/L (136-145) 10/22/23 03:30 Potassium 4.5 mmol/L (3.5-5.1) 10/22/23 03:30 Chloride 107 mmol/L (98-107) 10/22/23 03:30 Carbon Dioxide 29.0 mmol/L (21.0-32.0) 10/22/23 03:30 Anion Gap 3 (5-15) L 10/22/23 03:30 BUN 16 mg/dL (7-18) 10/22/23 03:30 Creatinine 1.11 mg/dL (0.70-1.30) 10/22/23 03:30 Est GFR (MDRD) Af Amer 83 mL/min (>60) 10/22/23 03:30 Est GFR (MDRD) Non-Af 68 mL/min (>60) 10/22/23 03:30 BUN/Creatinine Ratio 14.4 RATIO (10-20) 10/22/23 03:30 Glucose 288 mg/dL (74-106) H 10/22/23 03:30 Vancomycin Trough 24.6 ug/mL (5.0-15.0) H 10/22/23 03:30 Random Vancomycin 18.5 ug/mL (0.0-15.0) H 10/22/23 15:50 Microbiology Microbiology: Microbiology 10/20/23 14:12 Blood Culture (Wb) - Anticubital Right Blood Culture - Preliminary No growth in 48 hours. 10/20/23 17:30 Urine, Clean Catch Urine Culture - Preliminary Culture exhibits no growth. 10/20/23 17:30 Wound - Left Foot Gram Stain - Final 10/20/23 17:30 Wound - Left Foot Wound Culture - Final Pseudomonas aeruginosa Meth. resistant Staph. aureus Dosing Weight Weight used for dosin kg Estimated Creatinine Clearance Estimated Creatinine Clearance: ~81 Goal Trough Goal Trough: 15-20 mcg/mL Pharmacy Plan for Drug Dosing Pharmacy Plan for Drug Dosing: Vancomycin random level = 18.5. Resume dosing with 1250 mg Q12H. Pharmacy Service will continue to monitor and adjust dosing as required. Follow-Up Labs Follow-Up Labs: Trough: Vancomycin Date/Time Labs Ordered Labs to be done on [date and time ordered]: 10/24/23 @ 8549
[2023-10-22] MEDS: Vancomycin HCl 1,250 MG in 0.9% Normal Saline (250mL Bag) 250 ML 167 MG IV (18:13)
[2023-10-22 21:00] VITALS: BP 171/100; PULSE 73; RESP 15; TEMP 36.6; O2SAT 98
[2023-10-22] MEDS: Atorvastatin Calcium 80 MG Tablet PO (21:45)
[2023-10-22 22:14] LABS: Bedside Glucose 284 mg/dL (74-106)
[2023-10-23 05:00] VITALS: BP 169/89; PULSE 68; RESP 15; TEMP 37.2; O2SAT 98
[2023-10-23] MEDS: Vancomycin HCl 1,250 MG in 0.9% Normal Saline (250mL Bag) 250 ML 167 MG IV ×2 (05:23→17:12)
[2023-10-23 06:00] VITALS: BMI 39.2
[2023-10-23 06:26] LABS: Absolute Neutrophil Count 6.2 X10^3/uL (2.0-7.7); Basophil# 0.07 X10^3/uL; Basophil% 0.7 % (0-1); Eosinophil# 0.77 X10^3/uL; Eosinophils% 7.2 % (0-5); Hematocrit 37.7 % (40-54); Hemoglobin 12.2 g/dL (13.0-16.5); Lymphocyte % 26.3 % (19-41); Mean Corp Hgb Conc 32.4 g/dL (32-36); Mean Corpuscular Hgb 29.5 pg (27.0-32.0); Mean Corpuscular Volume 91.1 fL (80-94); Mean Platelet Vol. 11.8 fl (6.2-12.0); Monocyte# 0.79 X10^3/uL; Monocyte% 7.4 % (0-10); NRBC Flagged by Analyzer 0 % (0-5); Neutrophil # 6.18 X10^3/uL (2.7-7.7); Neutrophil % 57.9 % (47-70); Platelet Count 220 K/mm3 (150-450); RBC Distribution Width CV 13.1 % (11.6-14.6); RBC Distribution Width SD 43.3 fl (35.1-43.9); Red Blood Count 4.14 M/mm3 (4.6-6.2); White Blood Count 10.7 K/mm3 (4.4-11.0)
[2023-10-23 06:56] LABS: Anion Gap 4 (5-15); BUN 18 mg/dL (7-18); BUN/Creat Ratio 17.8 RATIO (10-20); Calcium,Total 9.4 mg/dL (8.5-10.1); Chloride 106 mmol/L (98-107); Creatinine, Serum 1.01 mg/dL (0.70-1.30); EST Glomerular Filtration Rate 76 mL/min (>60); Est Glom Filt Rate - Afr Amer 92 mL/min (>60); Estimated Creatinine Clearance 87.17 ml/min; Glucose 270 mg/dL (74-106); Potassium 3.7 mmol/L (3.5-5.1); Sodium Level 138 mmol/L (136-145)
[2023-10-23] MEDS: Insulin Lispro 100 UNIT/ML INSULN.PEN SC ×3 (06:58→17:10)
[2023-10-23] MEDS: Meropenem 500 MG in 0.9% Normal Saline (50mL MB+) 50 ML 100 MG IV ×3 (07:01→23:07)
--- NOTE | 2023-10-23 07:11 | PN.HOSP_ITS ---
Reason for Visit Reason for Visit: Diagnoses Type 2 diabetes mellitus with diabetic polyneuropathy (10/20/23) Type 2 diabetes mellitus with other skin complications (10/20/23) Cellulitis of left lower limb (10/20/23) Local infection of the skin and subcutaneous tissue, unspecified (10/20/23) Non-pressure chronic ulcer of other part of left foot with fat layer exposed (10/20/23) Other specified health status (10/20/23) prison (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 of anticoagulants (10/20/23) Subjective Subjective Feels well. No new complaints. Objective Data Objective Data Vital Signs: Vital Signs Temp Pulse Resp BP Pulse Ox O2 Del Method 37.2 C 68 15 169/89 H 98 Room Air 10/23/23 05:00 10/23/23 05:00 10/23/23 05:00 10/23/23 05:00 10/23/23 05:00 10/23/23 05:00 Oxygen Delivery Method Room Air Weight: 131.23 kg Body Mass Index (BMI) 39.2 Intake & Output: Intake and Output for Last 24 Hours 10/21/23 10/22/23 10/23/23 23:59 23:59 23:59 Intake Total 2800 / 2800 1405 / 1405 275 / 275 Output Total 1400 / 1400 800 / 1800 3000 / 3000 Balance 1400 / 1400 605 / -395 -2725 / -2725 Lab / Micro Data 10/23/23 05:30 10/23/23 05:30 Labs: Laboratory Results - last 24 hr 10/22/23 11:16: POC Glucose 245 H 10/22/23 15:50: Random Vancomycin 18.5 H 10/22/23 16:00: POC Glucose 285 H 10/22/23 21:48: POC Glucose 284 H 10/23/23 05:30: WBC 10.7, RBC 4.14 L, Hgb 12.2 L, Hct 37.7 L, MCV 91.1, MCH 29.5, MCHC 32.4, RDW Std Deviation 43.3, RDW Coeff of King 13.1, Plt Count 220, MPV 11.8, Immature Gran % (Auto) 0.500, Neut % (Auto) 57.9, Lymph % (Auto) 26.3, [place] % (Auto) 7.4, Eos % (Auto) 7.2 H, Baso % (Auto) 0.7, Absolute Neuts (auto) 6.2, Absolute Lymphs (auto) 2.80, Nucleated RBC % 0, Sodium 138, Potassium 3.7, Chloride 106, Carbon Dioxide 28.0, Anion Gap 4 L, BUN 18, Creatinine 1.01, Estim Creat Clear Calc 87.17, Est GFR (MDRD) Af Amer 92, Est GFR (MDRD) Non-Af 76, BUN/Creatinine Ratio 17.8, Glucose 270 H, Calcium 9.4 Micro: Microbiology 10/20/23 14:12 Blood Culture (Wb) - Anticubital Right Blood Culture - Preliminary No growth in 48 hours. 10/20/23 17:30 Urine, Clean Catch Urine Culture - Preliminary Culture exhibits no growth. 10/20/23 17:30 Wound - Left Foot Gram Stain - Final 10/20/23 17:30 Wound - Left Foot Wound Culture - Final Pseudomonas aeruginosa Meth. resistant Staph. aureus Physical Exam Const alert and no apparent distress HEENT head/scalp atraumatic and moist oral mucous membranes Resp normal respiratory effort, no retractions, no use of accessory muscles and clear to auscultation bilaterally Cardio regular rate, regular rhythm, S1 normal heart sound and S2 normal heart sound Extremity normal to inspection General Extremity: edema bilateral lower extremity Details: moderate Neuro Sensorium / Orientation: awake and alert Psych affect normal Assessment & Plan Assessment/Plan (1) Failure of outpatient treatment: (2) Cellulitis of left lower leg: (3) Diabetic foot infection: (4) Chronic anticoagulation: PLAN: Plan Left lower extremity cellulitis with ulceration/diabetic foot infection * Patient did have MRI on 09/24/2023 which does not show any signs of osteomyelitis at this time however the sinus tract. * Abx with meropenem and vancomycin (previously failed multiple oral antibiotics as an outpatient) * Wound Cx: Pseudomonas (resistant to Cipro, but otherwise sensitive) and MRSA * Podiatry for debridement. Plan for surgery next week. * ID for long-term IV abx. DM-2, insulin-dependent. * uncontrolled * takes home Humalog 30 units to 3 times daily. Will change to glargine 30 units BID. and SSI. * A1c 6.3 * continue SSI * would benefit from basal insulin upon discharge Itching * no evidence of rash. Suspect irritation from lying on his back. Chronic conditions: * Diabetic neuropathy-Continue home gabapentin * hypertension/hyperlipidemia: -Hold home Lasix as this is ordered as needed and monitor swelling-Continue home enalapril-Continue home atorvastatin * PAF-Patient is not on any rate controlling as an rates are able-Resume apixaban. Hold prior to surgery. 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 * Edema: no CHF. resume furosemide. DVT prophylaxis-Last dose of apixaban was this morning-Apixaban is currently on hold-SCDs for now CODE STATUS-DNR CCA with no intubation Charges/Coding Visit Charges Inpatient E&M: 41895 Subs Hosp L2
[2023-10-23 07:26] LABS: Bedside Glucose 267 mg/dL (74-106)
[2023-10-23 08:50] VITALS: BP 167/87; PULSE 64; RESP 18; TEMP 36.6; O2SAT 98
[2023-10-23] MEDS: Cholecalciferol (Vit D3) 125 MCG CAPSULE (5,000 UNITS) PO (09:18)
[2023-10-23] MEDS: Lisinopril 10 MG Tablet PO ×2 (09:18→23:06)
[2023-10-23] MEDS: Finasteride 5 MG Tablet PO (09:19)
[2023-10-23] MEDS: amLODIPine 5 MG Tablet PO (09:19)
[2023-10-23] MEDS: Acetaminophen 325 MG Tablet 650 MG PO ×3 (09:20→23:12)
[2023-10-23] MEDS: APIXABAN 5 MG TABLET PO ×2 (09:20→23:06)
[2023-10-23] MEDS: oxyCODONE 5 MG Tablet PO ×3 (09:21→23:11)
[2023-10-23] MEDS: Insulin Glargine-YFGN 100 UNIT/ML Pen 30 UNIT SC ×2 (09:22→23:05)
[2023-10-23] MEDS: Gabapentin 800 MG Tablet PO ×4 (09:26→23:06)
[2023-10-23] MEDS: Pantoprazole Sodium 40 MG Tablet PO (10:32)
[2023-10-23 11:24] VITALS: O2SAT 96
[2023-10-23 12:02] LABS: Bedside Glucose 231 mg/dL (74-106)
[2023-10-23] MEDS: Furosemide 40 MG Tablet PO ×2 (12:43→17:22)
[2023-10-23 14:00] VITALS: BP 149/84; PULSE 62; RESP 16; TEMP 36.3; O2SAT 100
[2023-10-23 17:00] LABS: Bedside Glucose 269 mg/dL (74-106)
[2023-10-23 20:05] VITALS: BP 162/88; PULSE 67; RESP 16; TEMP 36.4; O2SAT 100
[2023-10-23] MEDS: Atorvastatin Calcium 80 MG Tablet PO (23:06)
[2023-10-23 23:53] LABS: Bedside Glucose 301 mg/dL (74-106)
[2023-10-24 02:55] VITALS: BP 164/98; PULSE 70; RESP 18; TEMP 36.7; O2SAT 97
[2023-10-24 05:04] LABS: Absolute Lymphocyte Count 2.48 X10^3/uL (0.83-4.51); Absolute Neutrophil Count 5.8 X10^3/uL (2.0-7.7); Basophil# 0.07 X10^3/uL; Basophil% 0.7 % (0-1); Eosinophil# 0.73 X10^3/uL; Eosinophils% 7.5 % (0-5); Hematocrit 38.8 % (40-54); Hemoglobin 12.7 g/dL (13.0-16.5); Lymphocyte # 2.48 X10^3/ul (0.83-4.51); Lymphocyte % 25.3 % (19-41); Mean Corp Hgb Conc 32.7 g/dL (32-36); Mean Corpuscular Hgb 29.3 pg (27.0-32.0); Mean Corpuscular Volume 89.6 fL (80-94); Mean Platelet Vol. 11.3 fl (6.2-12.0); Monocyte% 7.2 % (0-10); NRBC Flagged by Analyzer 0 % (0-5); Neutrophil # 5.78 X10^3/uL (2.7-7.7); Platelet Count 254 K/mm3 (150-450); RBC Distribution Width SD 42.9 fl (35.1-43.9); Red Blood Count 4.33 M/mm3 (4.6-6.2); White Blood Count 9.8 K/mm3 (4.4-11.0)
[2023-10-24 05:13] VITALS: BMI 38.5
[2023-10-24 05:21] LABS: Vancomycin, Trough Level 24.6 ug/mL (5.0-15.0)
--- NOTE | 2023-10-24 05:28 | PCM.RX.CS ---
Consult Antibiotic Management Pharmacy has been consulted to manage selected antibiotic: Vancomycin Type of Intervention Type of Consult: Follow-up Suspected Infection Suspected Infection: Skin/Soft tissue Labs Labs: Vancomycin Trough 24.6 ug/mL (5.0-15.0) H 10/24/23 04:38 Random Vancomycin 18.5 ug/mL (0.0-15.0) H 10/22/23 15:50 Microbiology Microbiology: Microbiology 10/20/23 17:30 Urine, Clean Catch Urine Culture - Final Culture exhibits no growth. 10/20/23 14:12 Blood Culture (Wb) - Anticubital Right Blood Culture - Preliminary No growth in 48 hours. 10/20/23 17:30 Wound - Left Foot Gram Stain - Final 10/20/23 17:30 Wound - Left Foot Wound Culture - Final Pseudomonas aeruginosa Meth. resistant Staph. aureus Dosing Weight Weight used for dosin.2 kg Estimated Creatinine Clearance Estimated Creatinine Clearance: 87 Goal Trough Goal Trough: 15-20 mcg/mL Pharmacy Plan for Drug Dosing Pharmacy Plan for Drug Dosing: Vancomycin trough level of 24.6 was above the target range of 15-20. It was drawn 11.5hrs post-dose. Current dosing will be held and a random vanco level will be drawn in 12 hours to determine further orders. Pharmacy Service will continue to monitor and adjust dosing as required. Follow-Up Labs Follow-Up Labs: Trough: Vancomycin (random) Date/Time Labs Ordered Labs to be done on [date and time ordered]: 10/24/23 @1630 (random)
[2023-10-24 05:30] LABS: Anion Gap 4 (5-15); BUN 21 mg/dL (7-18); BUN/Creat Ratio 17.9 RATIO (10-20); Calcium,Total 9.7 mg/dL (8.5-10.1); Chloride 103 mmol/L (98-107); Creatinine, Serum 1.17 mg/dL (0.70-1.30); EST Glomerular Filtration Rate 64 mL/min (>60); Est Glom Filt Rate - Afr Amer 78 mL/min (>60); Estimated Creatinine Clearance 74.64 ml/min; Glucose 290 mg/dL (74-106); Potassium 3.6 mmol/L (3.5-5.1); Sodium Level 138 mmol/L (136-145)
[2023-10-24 06:06] VITALS: BP 161/86; PULSE 73; RESP 18; TEMP 36.6; O2SAT 96
[2023-10-24] MEDS: Meropenem 500 MG in 0.9% Normal Saline (50mL MB+) 50 ML 100 MG IV (06:12)
[2023-10-24] MEDS: Insulin Lispro 100 UNIT/ML INSULN.PEN SC ×3 (06:12→16:18)
[2023-10-24] MEDS: Lisinopril 10 MG Tablet PO ×2 (06:12→21:49)
[2023-10-24] MEDS: amLODIPine 5 MG Tablet PO (06:12)
--- NOTE | 2023-10-24 06:37 | PN.HOSP_ITS ---
Reason for Visit Reason for Visit: Diagnoses Type 2 diabetes mellitus with diabetic polyneuropathy (10/20/23) Type 2 diabetes mellitus with other skin complications (10/20/23) Cellulitis of left lower limb (10/20/23) Local infection of the skin and subcutaneous tissue, unspecified (10/20/23) Non-pressure chronic ulcer of other part of left foot with fat layer exposed (10/20/23) Other specified health status (10/20/23) detention (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 of anticoagulants (10/20/23) Subjective Subjective Patient notes primarily discomfort to his lumbar back and states is likely because he has been less active, currently denying significant pain to his left lower extremity or heel but notes it does throb. Discussed plan of care which involves evaluation per podiatry this morning and planned OR 10/25/2023 to which patient is amenable. Patient denies fevers, chills, nausea, emesis, abdominal pain, chest pain or dyspnea. Objective Data Objective Data Vital Signs: Vital Signs Temp Pulse Resp BP Pulse Ox O2 Del Method 98 F 73 18 161/86 H 96 Room Air 10/24/23 06:06 10/24/23 06:06 10/24/23 06:06 10/24/23 06:06 10/24/23 06:06 10/24/23 06:06 Oxygen Delivery Method Room Air Weight: 284 lb 13.396 oz Body Mass Index (BMI) 38.5 Intake & Output: Intake and Output for Last 24 Hours 10/22/23 10/23/23 10/24/23 23:59 23:59 23:59 Intake Total 1405 / 1405 2029 / 2030 500 / 500 Output Total 800 / 1800 3000 / 3000 1800 / 1800 Balance 605 / -395 -970 / -970 -1300 / -1300 Lab / Micro Data 10/24/23 04:38 10/24/23 04:38 Labs: Laboratory Results - last 24 hr 10/23/23 05:30: Sodium 138, Potassium 3.7, Chloride 106, Carbon Dioxide 28.0, A nion Gap 4 L, BUN 18, Creatinine 1.01, Estim Creat Clear Calc 87.17, Est GFR (MDRD) Af Amer 92, Est GFR (MDRD) Non-Af 76, BUN/Creatinine Ratio 17.8, Glucose 270 H, Calcium 9.4 10/23/23 06:56: POC Glucose 267 H 10/23/23 11:34: POC Glucose 231 H 10/23/23 16:40: POC Glucose 269 H 10/23/23 23:04: POC Glucose 301 H 10/24/23 04:38: WBC 9.8, RBC 4.33 L, Hgb 12.7 L, Hct 38.8 L, MCV 89.6, MCH 29.3, MCHC 32.7, RDW Std Deviation 42.9, RDW Coeff of King 13.0, Plt Count 254, MPV 11.3, Immature Gran % (Auto) 0.300, Neut % (Auto) 59.0, Lymph % (Auto) 25.3, [place] % (Auto) 7.2, Eos % (Auto) 7.5 H, Baso % (Auto) 0.7, Absolute Neuts (auto) 5.8, Absolute Lymphs (auto) 2.48, Nucleated RBC % 0, Sodium 138, Potassium 3.6, Chloride 103, Carbon Dioxide 31.0, Anion Gap 4 L, BUN 21 H, Creatinine 1.17, Estim Creat Clear Calc 74.64, Est GFR (MDRD) Af Amer 78, Est GFR (MDRD) Non-Af 64, BUN/Creatinine Ratio 17.9, Glucose 290 H, Calcium 9.7, Vancomycin Trough 24.6 H Micro: Microbiology 10/20/23 17:30 Urine, Clean Catch Urine Culture - Final Culture exhibits no growth. 10/20/23 14:12 Blood Culture (Wb) - Anticubital Right Blood Culture - Preliminary No growth in 48 hours. 10/20/23 17:30 Wound - Left Foot Gram Stain - Final 10/20/23 17:30 Wound - Left Foot Wound Culture - Final Pseudomonas aeruginosa Meth. resistant Staph. aureus Physical Exam Narrative Physical Examination: General: Awake, alert, oriented x 3 and cooperative, seated upright in the MS bed, notes back discomfort with difficulty sleeping. Skin: Normal color, normal turgor, no icterus, no cyanosis except for significant bilateral lower extremity venous stasis skin changes as well as chronic diabetic heel ulcers with chronic venous stasis skin changes bilaterally, left medial heel wound with periwound erythema and some maceration with drainage noted, non-malodorous. HEENT: AT/NC, EOMI with chronic vision deficits known baseline/legal blindness, MMM. Lungs: Mildly diminished, greater bases, appropriate effort, no rales, ronchi or wheezing. Heart: Regular rate and rhythm; no gallop, rub audible. Abdomen: Soft, obese, NTTP, ND, mildly hyperactive BS. Extremities: No cyanosis, no clubbing, see skin, bilateral lower extremity chronic lymphedema/edema present 1-2+. Neurological: Patient awake, alert, oriented as noted, cognitive function intact; pupils equally reactive to light and accommodation, cranial nerves grossly normal, moving all 4 extremities, no focal deficits, strength moderately to severely global decrease secondary to acute presentation and underlying comorbidities. Psychiatric: Affect appears fatigued, mildly irritable with discussions of back pain, no acute evidence of depressive or anxiety feelings. Assessment & Plan Assessment/Plan (1) Cellulitis of left lower limb: (2) Diabetic foot infection: PLAN: Plan The patient is a 77 y/o M w/ PMHx: CKD stage IIIa, Obesity, Hypothyroidism, HTN, HLD, Chronic back pain, Diabetes mellitus type II, PAF, Legal blindness with Retinitis pigmentosa, GERD, Hx Frequent PVCs, Chronic BL LE venous stasis disease/lymphedema and Chronic diabetic heel ulcers being followed outpatient, Chronic anemia/Fe deficiency anemia who presents to the [facility] ED on 10/20/23 with wound to the L foot following with Podiatry Dr. Spann and [facility]. [facility] noted to be worsening. #1. Acute LLE Diabetic Pseudomonas aeruginosa/MRSA infected wound/ulcer/cellulitis: Admission CBC with no marked WBC elevation, ESR 10, CRP 15.6, plain film of the left foot with osteopenia and osteoarthritic changes and diffuse soft tissue swelling, recent MRI 09/24/2023 with deep subcutaneous phlegmon pocket deep into the superficial skin ulcer on the medial and posterior aspect of the calcaneus without any evidence of osteomyelitis at that time. Patient mated to medical surgical floor, maintained on IV meropenem and IV vancomycin based on previous wound cultures, wound cultures obtained with noted Pseudomonas and MRSA, hemoglobin A1c 6.3%, Eliquis initially held for surgery and eventually resumed. Podiatry evaluating with recommended continued daily Betadine wet-to-dry dressings with sterile dry dressing as well as Kd bandage for compression wrap from the base of the toes to proximal calf with nonweightbearing to the left lower extremity with reevaluation for surgical debridement per Dr. Spann 10/24/23 with planned OR 10/25/23. PT/OT/case management/wound RN consulted and following. #2. Diabetes mellitus type II with chronic neuropathy: Hold oral home regimen, continue home insulin regimen, ADA diet, accu checks w/ ISS, continue home gabapentin regimen, hemoglobin A1c 6.3%. #3. Chronic normocytic anemia/iron deficiency anemia: Admission hemoglobin 11.8, MCV 93, baseline hemoglobin primarily 10-12, will continue to trend CBC. #4. Hypertension: Continue home regimen including Norvasc, Lasix, lisinopril PRN hydralazine. #5. Hyperlipidemia: We will continue patient on statin therapy. #6. PAF: Not on rate or rhythm agent, temporarily holding eliquis for OR 10/25/23. #7. Hypothyroidism: Previously on levothyroxine, noted upon admission not taking, TSH and free T4 requested. #8. Obesity: Weight loss and lifestyle changes encouraged. #9. History retinitis pigmentosa with chronic legal blindness: Maintain on fall precautions, case management/PT/OT consulted for discharge planning. #10. Chronic bilateral lower extremity lymphedema/venous stasis/ulcers: We will place snug kd wraps with elevation, wound care consult, podiatry following as noted, Lasix as needed. #11. Chronic Kidney Disease Stage IIIa: Admission BUN/Cr 18/1.13, baseline renal function 1.1-1.3, continue to trend. #12. BPH: We will continue patient home finasteride chronic regimen, straight cath as needed. #13. GERD: We will continue patient on PPI. #14. DVT prophylaxis: Eliquis initially held for possible surgery, resumed given no immediate surgical plans upon admission however reevaluation today per podiatry planned with planned OR 10/25/23. #15. CODE status: DNR-CCA no intubation status. Charges/Coding Visit Charges Inpatient E&M: 56901 [facility] Hosp L3
[2023-10-24 06:38] LABS: Bedside Glucose 285 mg/dL (74-106)
--- NOTE | 2023-10-24 07:37 | PCM.PN.SRG ---
Subjective Subjective Mr. Renae is a 77-year-old diabetic male seen at bedside today for dressing change left lower extremity. Patient admits to some pain to the left heel with touch. No acute events overnight. Denies trauma. Denies constitutional symptoms. No other pedal complaints at this time. Objective Data Objective Data Vital Signs: Vital Signs Temp Pulse Resp BP Pulse Ox O2 Del Method 98 F 73 18 161/86 H 96 Room Air 10/24/23 06:06 10/24/23 06:06 10/24/23 06:06 10/24/23 06:06 10/24/23 06:06 10/24/23 06:06 Oxygen Delivery Method Room Air Weight: 129.2 kg Body Mass Index (BMI) 38.5 Intake & Output: Intake and Output for Last 24 Hours 10/22/23 10/23/23 10/24/23 23:59 23:59 23:59 Intake Total 1405 / 1405 2030 / 2030 500 / 500 Output Total 800 / 1800 3000 / 3000 1800 / 1800 Balance 605 / -395 -970 / -970 -1300 / -1300 Lab / Micro Data 10/24/23 04:38 10/24/23 04:38 Labs: Laboratory Results - last 24 hr 10/23/23 11:34: POC Glucose 231 H 10/23/23 16:40: POC Glucose 269 H 10/23/23 23:04: POC Glucose 301 H 10/24/23 04:38: WBC 9.8, RBC 4.33 L, Hgb 12.7 L, Hct 38.8 L, MCV 89.6, MCH 29.3, MCHC 32.7, RDW Std Deviation 42.9, RDW Coeff of King 13.0, Plt Count 254, MPV 11.3, Immature Gran % (Auto) 0.300, Neut % (Auto) 59.0, Lymph % (Auto) 25.3, [place] % (Auto) 7.2, Eos % (Auto) 7.5 H, Baso % (Auto) 0.7, Absolute Neuts (auto) 5.8, Absolute Lymphs (auto) 2.48, Nucleated RBC % 0, Sodium 138, Potassium 3.6, Chloride 103, Carbon Dioxide 31.0, Anion Gap 4 L, BUN 21 H, Creatinine 1.17, Estim Creat Clear Calc 74.64, Est GFR (MDRD) Af Amer 78, Est GFR (MDRD) Non-Af 64, BUN/Creatinine Ratio 17.9, Glucose 290 H, Calcium 9.7, Vancomycin Trough 24.6 H 10/24/23 06:10: POC Glucose 285 H Micro: Microbiology 10/20/23 17:30 Urine, Clean Catch Urine Culture - Final Culture exhibits no growth. 10/20/23 14:12 Blood Culture (Wb) - Anticubital Right Blood Culture - Preliminary No growth in 48 hours. 10/20/23 17:30 Wound - Left Foot Gram Stain - Final 10/20/23 17:30 Wound - Left Foot Wound Culture - Final Pseudomonas aeruginosa Meth. resistant Staph. aureus Physical Exam Narrative Neurovascular status is unchanged. +1 pitting edema appreciated to the bilateral lower extremity. Blanchable erythema appreciated bilateral lower extremity. Full-thickness wound to the left medial heel measuring 0.5 x 0.5 x 0.1 cm. There is evidence of draining sinus. Periwound erythema and maceration improved. No malodor. Wound base is a mix of fibrogranular tissue. No pain with calf pressure bilateral. Assessment & Plan Assessment/Plan (1) Cellulitis of left lower leg: PLAN: Patient was examined and evaluated. All findings were discussed with the patient. All questions were answered to the patient's satisfaction. MRI: (09/24/2023), shows evidence of deep draining sinus at the level of the left medial heel. Phlegmonous pocket deep to superficial skin measuring 2.05 cm. X-ray: (10/20/2023), show evidence of osteopenic and arthritic changes with no concern of osteomyelitis. Patient left lower extremity ulceration was dressed with Betadine soaked gauze dry sterile dressing and single-layer Rosado was applied to the left lower extremity. Compression will be applied to the right lower extremity. Will plan for surgical intervention Tuesday at 730 am. Surgery consist of incision and drainage with delayed primary closure and possible wound VAC application. NPO midnight tonight. Please clear the patient medically and give recommendations. Recommend PICC line antibiotics as this has been a chronic issue and the patient has failed more than 2 rounds of oral antibiotics as an outpatient. Wound culture: Pseudomonas aeruginosa, MRSA Medicine: On board, medical management Infectious disease: On board, IV antibiotics vancomycin and Zosyn Wound care orders and for daily dressing changes. Dr. Spann will continue to follow patient while in house. Please reach out to Dr. Spann for any question concerns. (2) Non-pressure chronic ulcer of other part of left foot with fat layer exposed:
[2023-10-24 08:30] VITALS: BP 140/84; PULSE 73; RESP 18; TEMP 36.6; O2SAT 98
[2023-10-24 08:39] LABS: Magnesium 1.9 mg/dL (1.6-2.6); T4 Free Direct 0.74 ng/dL (0.76-1.46)
[2023-10-24] MEDS: Furosemide 40 MG Tablet PO ×2 (08:41→17:55)
[2023-10-24] MEDS: Finasteride 5 MG Tablet PO (08:41)
[2023-10-24] MEDS: oxyCODONE 5 MG Tablet PO (08:41)
[2023-10-24] MEDS: Pantoprazole Sodium 40 MG Tablet PO (08:41)
[2023-10-24] MEDS: Gabapentin 800 MG Tablet PO ×4 (08:41→21:49)
[2023-10-24] MEDS: Cholecalciferol (Vit D3) 125 MCG CAPSULE (5,000 UNITS) PO (08:41)
[2023-10-24] MEDS: Insulin Glargine-YFGN 100 UNIT/ML Pen 30 UNIT SC ×2 (08:42→21:48)
[2023-10-24] MEDS: Acetaminophen 325 MG Tablet 650 MG PO (08:42)
--- NOTE | 2023-10-24 09:34 | WOUNDNOTE ---
wound photo: left medial heel
--- NOTE | 2023-10-24 09:40 | CASEMGMT ---
Discharge Planning A list of?SNF providers including quality and resource use data and consistent with the patient's preferred geographic region, medical needs, and insurance network was created in [employer] Guide.? This list was provided to the SW. Keisha Hutchinson Discharge Planning Asst.
[2023-10-24 13:55] VITALS: BP 148/87; PULSE 75; RESP 18; TEMP 36.5; O2SAT 100
--- NOTE | 2023-10-24 13:55 | CASEMGMT ---
DOMINIC MARIE into pt room, pt present. Discussed that pt will need IV atb upon dc as well as requiring 2 assist currently. Pt states he does not want a SNF. Discussed options of HHC vs SNF. Discussed expectations of HHC. Pt states he would like them to come daily for the IV at home, made pt aware that HHC is skilled intermittent care and should he need more than that he may need a higher level of care. Provided pt with the list of SNFs that dc assurance assistant created. Pt and to discuss and DOMINIC MARIE to check back after surgery that is scheduled for tomorrow.
[2023-10-24] MEDS: oxyCODONE 5 MG Tablet 10 MG PO ×3 (13:58→21:57)
[2023-10-24] MEDS: Piperacil/Tazobactam 3.375 GM in 0.9% Normal Saline (50mL MB+) 50 ML IV ×2 (13:58→21:49)
--- NOTE | 2023-10-24 14:08 | PCM.PN.ID ---
Physical Exam Narrative Feeling better, no fever, no n/v/d. Const alert and no apparent distress General Appearance: cooperative Resp normal air movement and clear to auscultation bilaterally Cardio regular rate and regular rhythm GI soft to palpation, non-tender and non-distended Skin Skin Narrative: reviewed photo ID ID: Route of nutrition/ use of supplements: [] Nutritional Intake: [] IV Site: [] [place] Catheter: [] Assessment & Plan Assessment/Plan (1) Cellulitis of left lower limb: PLAN: Wound cx with PsA and MRSA. Podiatry following, OR planned. Will narrow to vanc/zosyn Will follow (2) Type 2 diabetes mellitus with diabetic polyneuropathy:
[2023-10-24 16:32] LABS: Bedside Glucose 218 mg/dL (74-106)
[2023-10-24 16:37] LABS: Bedside Glucose 335 mg/dL (74-106)
[2023-10-24 17:33] LABS: Vancomycin, Random Level 18.4 ug/mL (0.0-15.0)
[2023-10-24 17:50] VITALS: BP 142/87; PULSE 86; RESP 18; TEMP 36.8; O2SAT 100
--- NOTE | 2023-10-24 18:05 | PCM.RX.CS ---
Consult Antibiotic Management Pharmacy has been consulted to manage selected antibiotic: Vancomycin Type of Intervention Type of Consult: Follow-up Suspected Infection Suspected Infection: Skin/Soft tissue Prior Doses of Antibiotics Prior Doses of Antibiotics Received/Current Regimen: Previously on 1250mg iv q12h. Labs Labs: Sodium 138 mmol/L (136-145) 10/24/23 04:38 Potassium 3.6 mmol/L (3.5-5.1) 10/24/23 04:38 Chloride 103 mmol/L (98-107) 10/24/23 04:38 Carbon Dioxide 31.0 mmol/L (21.0-32.0) 10/24/23 04:38 Anion Gap 4 (5-15) L 10/24/23 04:38 BUN 21 mg/dL (7-18) H 10/24/23 04:38 Creatinine 1.17 mg/dL (0.70-1.30) 10/24/23 04:38 Est GFR (MDRD) Af Amer 78 mL/min (>60) 10/24/23 04:38 Est GFR (MDRD) Non-Af 64 mL/min (>60) 10/24/23 04:38 BUN/Creatinine Ratio 17.9 RATIO (10-20) 10/24/23 04:38 Glucose 290 mg/dL (74-106) H 10/24/23 04:38 Vancomycin Trough 24.6 ug/mL (5.0-15.0) H 10/24/23 04:38 Random Vancomycin 18.4 ug/mL (0.0-15.0) H 10/24/23 16:40 Microbiology Microbiology: Microbiology 10/20/23 17:30 Urine, Clean Catch Urine Culture - Final Culture exhibits no growth. 10/20/23 14:12 Blood Culture (Wb) - Anticubital Right Blood Culture - Preliminary No growth in 48 hours. 10/20/23 17:30 Wound - Left Foot Gram Stain - Final 10/20/23 17:30 Wound - Left Foot Wound Culture - Final Pseudomonas aeruginosa Meth. resistant Staph. aureus Dosing Weight Weight used for dosin kg Estimated Creatinine Clearance Estimated Creatinine Clearance: 75 ml/min Goal Trough Goal Trough: 15-20 mcg/mL Pharmacy Plan for Drug Dosing Pharmacy Plan for Drug Dosing: Random level today ~23.5hrs post dose was 18.4. Previous trough level 24.6 and above target range of 15-20. Recommend changing dose to 1gm iv q12h and get new random level before fourth dose. Pharmacy Service will continue to monitor and adjust dosing as required. Follow-Up Labs Follow-Up Labs: Trough: Vancomycin (8.21.24 @0630)
[2023-10-24] MEDS: Vancomycin IV 1,000 MG/200 ML BAG 200 MG IV (18:49)
[2023-10-24 21:05] VITALS: BP 147/84; PULSE 68; RESP 16; TEMP 36.8; O2SAT 98
[2023-10-24] MEDS: Atorvastatin Calcium 80 MG Tablet PO (21:49)
[2023-10-24 22:11] LABS: Bedside Glucose 311 mg/dL (74-106)
[2023-10-25] VITALS (14 sets, daily range): BP systolic 96–152; BP diastolic 44–89; PULSE 64–89; RESP 16; TEMP 36.3–36.8; O2SAT 93–100; BMI 38.9; BMI 39.0
[2023-10-25] MEDS: Piperacil/Tazobactam 3.375 GM in 0.9% Normal Saline (50mL MB+) 50 ML IV ×3 (05:05→22:09)
[2023-10-25 06:22] LABS: Bedside Glucose 251 mg/dL (74-106)
[2023-10-25 06:32] LABS: Absolute Lymphocyte Count 2.56 X10^3/uL (0.83-4.51); Absolute Neutrophil Count 7.8 X10^3/uL (2.0-7.7); Basophil# 0.07 X10^3/uL; Basophil% 0.6 % (0-1); Eosinophil# 0.83 X10^3/uL; Eosinophils% 6.7 % (0-5); Hematocrit 38.7 % (40-54); Hemoglobin 12.7 g/dL (13.0-16.5); Lymphocyte # 2.56 X10^3/ul (0.83-4.51); Lymphocyte % 20.7 % (19-41); Mean Corp Hgb Conc 32.8 g/dL (32-36); Mean Corpuscular Hgb 29.3 pg (27.0-32.0); Mean Corpuscular Volume 89.2 fL (80-94); Mean Platelet Vol. 11.5 fl (6.2-12.0); Monocyte# 1.01 X10^3/uL; Monocyte% 8.2 % (0-10); NRBC Flagged by Analyzer 0 % (0-5); Neutrophil # 7.84 X10^3/uL (2.7-7.7); Neutrophil % 63.3 % (47-70); Platelet Count 250 K/mm3 (150-450); RBC Distribution Width CV 12.9 % (11.6-14.6); RBC Distribution Width SD 42.4 fl (35.1-43.9); Red Blood Count 4.34 M/mm3 (4.6-6.2); White Blood Count 12.4 K/mm3 (4.4-11.0)
[2023-10-25 06:49] LABS: ALB/GLOB Ratio 0.7 RATIO (0.9-2.4); AST(SGOT) 18 U/L (15-37); Alanine Aminotransfer ALT/SGPT 23 U/L (16-61); Albumin, Serum 2.5 g/dL (3.2-5.0); Alkaline Phosphatase 121 U/L (45-117); Anion Gap 5 (5-15); BUN 27 mg/dL (7-18); BUN/Creat Ratio 20.6 RATIO (10-20); Calcium,Total 9.2 mg/dL (8.5-10.1); Chloride 101 mmol/L (98-107); Creatinine, Serum 1.31 mg/dL (0.70-1.30); EST Glomerular Filtration Rate 56 mL/min (>60); Est Glom Filt Rate - Afr Amer 68 mL/min (>60); Estimated Creatinine Clearance 66.96 ml/min; Globulin 3.5 g/dL (2.2-4.2); Glucose 261 mg/dL (74-106); Potassium 3.4 mmol/L (3.5-5.1); Sodium Level 136 mmol/L (136-145)
[2023-10-25] MEDS: Vancomycin IV 1,000 MG/200 ML BAG 200 MG IV ×2 (06:55→18:32)
--- NOTE | 2023-10-25 07:03 | PN.HOSP_ITS ---
Reason for Visit Reason for Visit: Diagnoses Type 2 diabetes mellitus with diabetic polyneuropathy (10/20/23) Type 2 diabetes mellitus with other skin complications (10/20/23) Cellulitis of left lower limb (10/20/23) Local infection of the skin and subcutaneous tissue, unspecified (10/20/23) Non-pressure chronic ulcer of other part of left foot with fat layer exposed (10/20/23) Other specified health status (10/20/23) senior living (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 of anticoagulants (10/20/23) Subjective Subjective Patient with no acute events overnight per self and per nursing report. Patient status post OR today with incision and drainage of left lower extremity secondary to full-thickness ulceration of the medial left head, left lower extremity cellulitis with removal of necrotic tissue. Upon evaluation postoperatively patient notes pain improved and rating it 2-3 out of 10 in severity but did have recent narcotic regimen. Patient denies fevers, chills, nausea, emesis, abdominal pain, chest pain or dyspnea. Objective Data Objective Data Vital Signs: Vital Signs Temp Pulse Resp BP Pulse Ox O2 Del Method 98.1 F 84 16 131/72 H 97 Room Air 10/25/23 05:13 10/25/23 05:13 10/25/23 05:13 10/25/23 05:13 10/25/23 05:13 10/25/23 05:13 Oxygen Delivery Method Room Air Weight: 287 lb 4.197 oz Body Mass Index (BMI) 38.9 Intake & Output: Intake and Output for Last 24 Hours 10/23/23 10/24/23 10/25/23 23:59 23:59 23:59 Intake Total 2029 / 2029 810 / 810 800 / 800 Output Total 3000 / 3000 2800 / 2800 500 / 500 Balance -970 / -970 -1989 / 300 / 300 Lab / Micro Data 10/25/23 05:45 10/25/23 05:45 Labs: Laboratory Results - last 24 hr 10/24/23 04:38: Magnesium 1.9, TSH 2.210, Free T4 0.74 L 10/24/23 11:04: POC Glucose 218 H 10/24/23 16:17: POC Glucose 335 H 10/24/23 16:40: Random Vancomycin 18.4 H 10/24/23 21:45: POC Glucose 311 H 10/25/23 05:45: WBC 12.4 H, RBC 4.34 L, Hgb 12.7 L, Hct 38.7 L, MCV 89.2, MCH 29.3, MCHC 32.8, RDW Std Deviation 42.4, RDW Coeff of King 12.9, Plt Count 250, MPV 11.5, Immature Gran % (Auto) 0.500, Neut % (Auto) 63.3, Lymph % (Auto) 20.7, [place] % (Auto) 8.2, Eos % (Auto) 6.7 H, Baso % (Auto) 0.6, Absolute Neuts (auto) 7.8 H, Absolute Lymphs (auto) 2.56, Nucleated RBC % 0, Sodium 136, Potassium 3.4 L, Chloride 101, Carbon Dioxide 30.0, Anion Gap 5, BUN 27 H, Creatinine 1.31 H, Estim Creat Clear Calc 66.96, Est GFR (MDRD) Af Amer 68, Est GFR (MDRD) Non-Af 56 L, BUN/Creatinine Ratio 20.6 H, Glucose 261 H, Calcium 9.2, Total Bilirubin 0.60, AST 18, ALT 23, Alkaline Phosphatase 121 H, Total Protein 6.0 L, Albumin 2.5 L, Globulin 3.5, Albumin/Globulin Ratio 0.7 L 10/25/23 05:55: POC Glucose 251 H Micro: Microbiology 10/20/23 17:30 Urine, Clean Catch Urine Culture - Final Culture exhibits no growth. 10/20/23 14:12 Blood Culture (Wb) - Anticubital Right Blood Culture - Preliminary No growth in 48 hours. 10/20/23 17:30 Wound - Left Foot Gram Stain - Final 10/20/23 17:30 Wound - Left Foot Wound Culture - Final Pseudomonas aeruginosa Meth. resistant Staph. aureus Physical Exam Narrative Physical Examination: General: Awake, alert, oriented x 3 and cooperative, seated upright in the MS bed, fatigued, status post recent OR, status post I&D with necrotic tissue debridement with dressing in place, notes pain currently controlled but given recent regimen. Skin: Normal color, normal turgor, no icterus, no cyanosis except for significant bilateral lower extremity venous stasis skin changes, recent OR with left heel debridement/I&D with necrotic tissue removal with dressing in place with no current drainage noted. HEENT: AT/NC, EOMI with chronic vision deficits known baseline/legal blindness, MMM. Lungs: Mildly diminished, greater bases, appropriate effort, no rales, ronchi or wheezing. Heart: Regular rate and rhythm; no gallop, rub audible. Abdomen: Soft, obese, NTTP, ND, mildly hyperactive BS. Extremities: No cyanosis, no clubbing, see skin, bilateral lower extremity chronic lymphedema/edema present 1-2+. Neurological: Patient awake, alert, oriented as noted, cognitive function intact; pupils equally reactive to light and accommodation, cranial nerves grossly normal, moving all 4 extremities but somewhat limited given recent OR, sedated regimen and fatigue, no focal deficits, strength moderately to severely global decreased. Psychiatric: Affect appears fatigued, no acute evidence of depressive or anxiety feelings. Assessment & Plan Assessment/Plan (1) Cellulitis of left lower limb: (2) Diabetic foot infection: PLAN: Plan The patient is a 77 y/o M w/ PMHx: CKD stage IIIa, Obesity, Hypothyroidism, HTN, HLD, Chronic back pain, Diabetes mellitus type II, PAF, Legal blindness with Retinitis pigmentosa, GERD, Hx Frequent PVCs, Chronic BL LE venous stasis disease/lymphedema and Chronic diabetic heel ulcers being followed outpatient, Chronic anemia/Fe deficiency anemia who presents to the [facility] ED on 10/20/23 with wound to the L foot following with Podiatry Dr. Spann and Dr. [facility] noted to be worsening. #1. Acute LLE Diabetic Pseudomonas aeruginosa/MRSA infected wound/ulcer/cellulitis: Admission CBC with no marked WBC elevation, ESR 10, CRP 15.6, plain film of the left foot with osteopenia and osteoarthritic changes and diffuse soft tissue swelling, recent MRI 09/24/2023 with deep subcutaneous phlegmon pocket deep into the superficial skin ulcer on the medial and posterior aspect of the calcaneus without any evidence of osteomyelitis at that time. Patient mated to medical surgical floor, maintained on IV meropenem and IV vancomycin based on previous wound cultures, wound cultures obtained with noted Pseudomonas and MRSA, hemoglobin A1c 6.3%. Podiatry evaluating with recommended continued daily Betadine wet-to-dry dressings with sterile dry dressing as well as Kd bandage for compression wrap from the base of the toes to proximal calf with nonweightbearing to the left lower extremity. Reevaluation Dr. Spann 10/24/23 with OR 10/25/23 with incision and drainage left lower extremity with removal of necrotic tissue secondary to full-thickness ulceration of the medial left head and cellulitis with pending OR cultures. PT/OT/case management/wound RN consulted and following. #2. Hypokalemia: Admission K+ 3.4, magnesium recently obtained and noted to be, supplementation given, repeat level in AM. #3. Diabetes mellitus type II with chronic neuropathy: Hold oral home regimen, continue home insulin regimen, ADA diet, accu checks w/ ISS, continue home gabapentin regimen, hemoglobin A1c 6.3%. #4. Chronic normocytic anemia/iron deficiency anemia: Admission hemoglobin 11.8, MCV 93, baseline hemoglobin primarily 10-12, 10/25/2023 hemoglobin 12.7, MCV 89.2, will continue to trend CBC. #5. Hypertension: Continue home regimen including Norvasc, Lasix, lisinopril PRN hydralazine. #6. Hyperlipidemia: We will continue patient on statin therapy. #7. PAF: Not on rate or rhythm agent, temporarily holding eliquis for OR 10/25/23. Will discuss restarting with Podiatry for 10/26/23. #8. Hypothyroidism: Previously on levothyroxine, noted upon admission not taking, TSH 2.210 and free T4 0.74. #9. Obesity: Weight loss and lifestyle changes encouraged. #10. History retinitis pigmentosa with chronic legal blindness: Maintain on fall precautions, case management/PT/OT consulted for discharge planning. #11. Chronic bilateral lower extremity lymphedema/venous stasis/ulcers: We will place snug kd wraps with elevation, wound care consult, podiatry following as noted, Lasix as needed. #12. Chronic Kidney Disease Stage IIIa: Admission BUN/Cr 18/1.13, baseline renal function 1.1-1.3, 10/25/2023 BUN/creatinine 27/1.31, continue to trend. #13. BPH: We will continue patient home finasteride chronic regimen, straight cath as needed. #14. GERD: We will continue patient on PPI. #15. DVT prophylaxis: Eliquis held for OR 10/25/23. Will discuss restarting with Podiatry for 10/26/23. #16. CODE status: DNR-CCA no intubation status. Charges/Coding Visit Charges Inpatient E&M: 99467 Subs Hosp L3
--- NOTE | 2023-10-25 07:25 | PRE.ANES_ITS ---
ASA Classification* ASA Classification ASA Classification: 3 Assessment & Plan Anesthesia* Anesthesia Assessment Anesthesia Assessment: Discussed sedation and/or anesthesia options, risks, benefits, and alternatives with patient/parents/legal guardian/POA. Questions invited. The patient/parents/legal guardian/POA seems to understand and agrees to proceed with anesthesia plan. Reviewed the physical assessment, medical history, allergy history and patient home medications list prior to surgery/procedure/anesthetic and documented any changes. Performed airway and anesthesia risk assessments. Anesthesia Type Anesthesia Type: General (see written pre anesthesia record for full assessment) Anesthesia Focused Assessment* Temperature: 98.1 F Pulse Rate: 84 Blood Pressure: 131/72 Respiratory Rate: 16 Pulse Ox: 97 Airway Assessment Mouth opens: >3 cm Mallampati Score: II Focused Labs Anesthesia Preop lab: CBC WBC 12.4 K/mm3 (4.4-11.0) H 10/25/23 05:45 RBC 4.34 M/mm3 (4.6-6.2) L 10/25/23 05:45 Hgb 12.7 g/dL (13.0-16.5) L 10/25/23 05:45 Hct 38.7 % (40-54) L 10/25/23 05:45 Plt Count 250 K/mm3 (150-450) 10/25/23 05:45 CHEMISTRY Potassium 3.4 mmol/L (3.5-5.1) L 10/25/23 05:45 Sodium 136 mmol/L (136-145) 10/25/23 05:45 Magnesium 1.9 mg/dL (1.6-2.6) 10/24/23 04:38 Phosphorus 2.6 mg/dL (2.5-4.9) 10/21/23 05:10 BUN 27 mg/dL (7-18) H 10/25/23 05:45 Creatinine 1.31 mg/dL (0.70-1.30) H 10/25/23 05:45 Glucose 261 mg/dL (74-106) H 10/25/23 05:45 POC Glucose 251 mg/dL (74-106) H 10/25/23 05:55 TSH 2.210 uIU/mL (0.358-3.740) 10/24/23 04:38 COAG PT 17.8 SECONDS (11.7-14.9) H 10/20/23 14:12 Pre-Assessment Diagnosis/Proposed Procedure Planned Operative Procedure(s): i and d foot Anesthesia History Anesthesia History - mononitrotoluene operator: Anesthesia History - mononitrotoluene operator Hx Hospitalization Any Problems With Anesthesia Yes: confusion and nausea 10/23/23 06:00 Cholinesterase deficiency No 10/23/23 06:00 You/Your Family Experience No 10/23/23 06:00 fever (hyperthermia) with Relationship Recent Exposure to Contagious No 10/23/23 06:00 Disease Does patient have nerve No 10/23/23 06:00 stimulator Patient instructed to have No 10/23/23 06:00 device shut off --Does patient have Pacemaker No 10/25/23 05:14 or ICD? When Was Last Pacemaker Check QUESTION #4 FULL TEXT: You/Your Family Experience fever (hyperthermia) with Anesthesia Last Oral Intake Last Oral intake: Last Oral Intake NPO since 00:00 10/25/23 05:14 Meds taken in AM with sips of water? Meds patient instructed to take am of surgery PONV PONV - mononitrotoluene operator: PONV - mononitrotoluene operator Female HX of Motion Sickness HX of N/V After Surgery Non-Smoker Duration of Surgery greater than 60 minutes Number of Risk Factors PONV Score Height & Weight Height & Weight: Anesthesia: Height & Weight Height 6 ft 10/25/23 05:14 Weight: 130.3 kg 10/25/23 05:14 Body Mass Index (BMI) 38.9 10/25/23 05:14 Respiratory Assessment Respiratory Assessment - mononitrotoluene operator: Respiratory Tract Infection Hx - mononitrotoluene operator Hx Respiratory Tract Infection No 10/23/23 06:00 STOP Sleep Apnea STOP Sleep Apnea - mononitrotoluene operator: STOP Sleep Apnea - mononitrotoluene operator Hx Hypertension Yes 10/21/23 12:49 Hx Sleep Apnea No 10/20/23 16:50 CPAP No 10/20/23 16:50 BIPAP No 10/20/23 16:50 Do you snore loudly (louder No 10/20/23 16:50 than talking or can be heard Do you often feel tired/ No 10/20/23 16:50 fatigued/ sleepy during daytime? Has anyone observed you stop No 10/20/23 16:50 breathing during sleep? STOP Results Negative 10/20/23 16:50 QUESTION #5 FULL TEXT : Do you snore loudly (louder than talking or can be heard through closed doors)? 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 Specify any problems mrsa 10/20/23 16:50 Hx of Preganancy in last 3 N/A 10/20/23 16:50 Months Nurse Filling Out Transfusion FSTEINER 10/20/23 16:50 & Questions: Date: 10/20/23 10/20/23 16:50 Time: 16:52 10/20/23 16:50 Patient unable to answer at this time (ie. confused, unrespo /Reproduction History /Reproductive History - mononitrotoluene operator: /Reproductive Hx- mononitrotoluene operator Hx Now Gestational Age (in weeks): EDC: Hx Hx Para Hx Section SAB Active Medications Active Medications: Current Medications Generic Name Dose Route Start Last Admin Trade Name Freq PRN Reason Stop Dose Admin Acetaminophen 650 mg 10/20/23 16:49 10/24/23 08:42 Acetaminophen 325 Mg Tablet PO 650 mg Q6H PRN PRN Administration Pain 1-10 Or Fever >100.7 Amlodipine Besylate 5 mg 10/21/23 10:00 10/24/23 06:12 Amlodipine 5 Mg Tablet PO 5 mg DAILY TAM Administration Protocol Atorvastatin Calcium 80 mg 10/20/23 22:00 10/24/23 21:49 Atorvastatin Calcium 80 Mg Tablet PO 80 mg QHS TAM Administration Cholecalciferol 125 mcg 10/22/23 10:00 10/24/23 08:41 Cholecalciferol (Vit D3) 125 Mcg Capsule (5,000 Units) PO 125 mcg DAILY TAM Administration Finasteride 5 mg 10/21/23 10:00 10/24/23 08:41 Finasteride 5 Mg Tablet PO 5 mg DAILY TAM Administration Furosemide 40 mg 10/23/23 12:05 10/24/23 17:55 Furosemide 40 Mg Tablet PO 40 mg BIDLX TAM Administration Protocol Gabapentin 800 mg 10/20/23 18:00 10/24/23 21:49 Gabapentin 800 Mg Tablet PO 800 mg 4X/DAY TAM Administration Glucagon 1 mg 10/20/23 16:49 Glucagon 1 Mg/Ml Syringe IM X1 PRN HYPOGLYCEMIA Protocol Vancomycin IV-PHARMACY TO DOSE 500 mls @ 250 mls/hr 10/20/23 16:49 1 each/ Sodium Chloride IV X1 PRN Rx to Dose Protocol Dextrose 250 mls @ 0 mls/hr 10/20/23 16:49 Dextrose 10%-Water IV .Q0M PRN HYPOGLYCEMIA Protocol As Directed Sodium Chloride 250 mls @ 15 mls/hr 10/20/23 16:56 IV .[id number] PRN Additional IVPB Infusion Sodium Chloride 250 mls @ 15 mls/hr 10/20/23 16:56 IV .[id number] PRN Saline Flush Piperacillin Sod/Tazobactam 50 mls @ 12.5 mls/hr 10/24/23 14:00 10/25/23 05:05 Sod 3.375 gm/ Sodium Chloride IV 12.5 mls/hr Q8 TAM Administration Vancomycin HCl 1,000 mg in 200 mls @ 200 mls/hr 10/24/23 19:00 10/25/23 06:55 Vancomycin IV 200 mls/hr Q12H TAM Administration Insulin Glargine 30 unit 10/23/23 10:00 10/24/23 21:48 Insulin Glargine-Yfgn 100 Unit/Ml Pen SC 30 unit BID TAM Administration Insulin Human Lispro 0 unit 10/20/23 16:49 10/25/23 06:13 Insulin Lispro 100 Unit/Ml Insuln.Pen SC Not Given TIDAC TAM Protocol Lisinopril 10 mg 10/20/23 22:00 10/24/23 21:49 Lisinopril 10 Mg Tablet PO 10 mg BID TAM Administration Protocol Loratadine 10 mg 10/20/23 16:49 10/22/23 22:01 Loratadine 10 Mg Tablet PO 10 mg BID PRN Administration allergy symptoms Melatonin 3 mg 10/20/23 16:49 Melatonin 3 Mg Tablet PO QHS PRN PRN INSOMNIA Ondansetron HCl 4 mg 10/20/23 16:49 Ondansetron Odt 4 Mg Tablet PO Q12H PRN nausea and vomiting Ondansetron HCl 4 mg 10/20/23 16:49 Ondansetron 4 Mg/2 Ml Vial IV Q8H PRN PRN NAUSEA/VOMITING Oxycodone HCl 10 mg 10/24/23 09:48 10/24/23 21:57 Oxycodone 5 Mg Tablet PO 10 mg Q4H PRN PRN Administration Pain Score 4-10 Pantoprazole Sodium 40 mg 10/21/23 10:00 10/24/23 08:41 Pantoprazole Sodium 40 Mg Tablet PO 40 mg DAILY TAM Administration Senna/Docusate Sodium 2 tablet 10/20/23 16:49 Senna/Docusate Sodium 1 Tablet PO BID PRN PRN Constipation Sodium Chloride 10 - 40 ml 10/20/23 16:56 0.9% Saline Lock 10 Ml Syringe IV UD PRN SALINE FLUSH Vancomycin Protocol 1 lab 10/26/23 04:30 Vancomycin Trough/Random Due 10/26/23 08:30 DAILY TAM PFSH Medical History Anemia Cancer Current use of insulin Back pain due to injury Injury of head and neck History of stress test Rheumatic fever Wears hearing aid in both ears Blindness of both eyes Hearing loss, left Hearing loss, right Hypothyroidism Diabetes Chronic pain Former smoker Atrial fibrillation Hypertension DVT (deep venous thrombosis) History of diabetes mellitus History of atrial fibrillation Frequent PVCs Paroxysmal atrial fibrillation Renal insufficiency Retinitis pigmentosa Hypothyroidism Hyperlipidemia Insomnia GERD (gastroesophageal reflux disease) Legal blindness Osteoarthritis Essential hypertension Sepsis Chronic back pain UTI (urinary tract infection) Acute renal failure Type II diabetes mellitus Home Medications ?Medication ?Instructions ?Recorded ?Last Taken ?Type gabapentin 800 mg tablet 800 mg PO 4XD 08/21/13 10/25/14 04:00 History omeprazole 40 mg capsule,delayed 40 mg PO DAILY 08/21/13 10/25/14 04:00 History release atorvastatin 80 mg tablet 80 mg PO QHS 07/25/14 Unknown History finasteride 5 mg tablet 1 tab PO DAILY 01/23/20 Unknown History hydrocodone 10 mg-acetaminophen 1 tab PO 4X/DAY 01/23/20 Unknown History 325 mg tablet cholecalciferol (vitamin D3) 125 125 mcg PO DAILY 04/11/20 Unknown History mcg (5,000 unit) capsule furosemide 40 mg tablet 40 - 80 mg PO DAILY PRN edema 04/11/20 Unknown History apixaban 5 mg tablet (Eliquis) 5 mg PO BID 07/02/20 Unknown History insulin aspart U-100 100 unit/mL 30 unit subcut TID 08/26/22 Unknown History (3 mL) subcutaneous pen (Novolog FlexPen U-100 Insulin aspart) amlodipine 5 mg tablet 5 mg PO DAILY 03/30/23 Unknown History ondansetron 4 mg disintegrating 4 mg PO Q12H PRN nausea and 03/30/23 Unknown History tablet vomiting enalapril maleate 10 mg tablet 10 mg PO BID 08/29/23 Unknown History levothyroxine 25 mcg tablet mcg PO 08/29/23 Unknown History tuqbftzx-brb-ppqff acid 0.4 1 tab PO DAILY 08/29/23 Unknown History mg-lycopene 300 mcg-lutein 250 mcg tablet (Centrum Silver) doxycycline hyclate 100 mg capsule 100 mg PO BID 2 weeks #28 caps 09/07/23 Unknown Rx cetirizine 10 mg tablet (24Hour 10 mg PO BID PRN allergy symptoms 10/20/23 Unknown History Allergy) vitamin E 800 unit capsule 800 unit PO DAILY 10/20/23 Unknown History Allergy/AdvReac Type Severity Reaction Status Date / Time Sulfa (Sulfonamide Allergy Shortness Verified 10/20/23 13:26 Antibiotics) of breath Gadolinium-MRI Contrast AdvReac Vomiting Verified 10/20/23 13:26 Medium (MRI) Family History Sister Cancer ovarian Mother CVA (cerebral vascular accident) Diabetes Father Cancer malignant melanona, bladder Brother Myocardial infarction Brother Myocardial infarction Brother Lung cancer Surgical History History of cholecystectomy (~10/2022) History of left heart catheterization (04/16/20) History of thumb surgery History of vein stripping History of carpal tunnel surgery of left wrist History of discectomy History of spinal fusion History of surgery on wrist History of elbow surgery History of arthroscopy of knee History of cataract extraction History of transurethral resection of prostate Social History household members: spouse and other details: nephew Smoking Status: Former smoker Tobacco: How many years used: 10 how long ago did patient quit smokin years ago alcohol intake: never substance use type: does not use caffeine: Yes Type: carbonated beverages Number of servings: 5 what type of physical activity do you participate in: none seatbelt use: always do you feel safe at home: Yes Review of Systems (Anesthesia) ROS Narrative System reviewed and no additional complaints, except as documented.
--- NOTE | 2023-10-25 07:37 | WOUNDNOTE ---
Pt is currently down in the OR for surgery.
[2023-10-25] MEDS: Bupivacaine Mpf 0.5% 30 ML VIAL (07:44)
[2023-10-25] MEDS: Lactated Ringers 1,000 ML 15 ML IV (07:44)
[2023-10-25] MEDS: Vancomycin IV 1,000 MG/20 ML Vial 1000 MG OPERA.SITE (08:18)
--- NOTE | 2023-10-25 08:42 | OP.PCM_ITS ---
Problems Associated Problem List Diagnoses (1) Non-pressure chronic ulcer of other part of left foot with fat layer exposed: (2) Cellulitis of left lower limb: Report of Operation Date of Procedure: 10/25/23 Pre-Operative Diagnosis: 1. Full-thickness ulceration medial left heel, left lower extremity 2. Cellulitis, left lower extremity Post-Operative Diagnosis: Same as preoperative diagnosis Surgery/Procedure Performed:: 1. Incision and drainage, left lower extremity 2. Delayed primary closure, left lower extremity Description of Surgical Findings:: 1. No evidence of gross purulent drainage to the level of the plantar vault, left heel 2. Removal of necrotic tissue, left heel Surgeon: Olaf Spann tunnel mucker: None Type of Anesthesia: General and Local Anesthesiologist: William Becerra Special Medications: Vancomycin powder, 1 g Specimen's removed: 1. Deep soft tissue culture. 2. Soft tissue, left heel Drains: None Estimated Blood Loss (mL): 20 mL Fluids Replaced: Per anesthesia Description of Procedure: Indications For Operation: Mr. Renae is a 77-year-old diabetic male who was admitted to [facility] for worsening left heel infection when seen at the wound care center last week. Patient was admitted under medicine for surgical clearance and consulted for infectious disease recommendation for IV antibiotics. Patient was seen at the wound care center last Tuesday that showed evidence of worsening infection after failing multiple rounds of oral antibiotics with concern of a Pseudomonas infection and left green heel. Due to nature of the patient's worsening infection it was deemed necessary to admit the patient under medicine for surgical clearance, IV antibiotics and infectious disease consult with possible PICC line placement as well as for podiatry to take the patient the operating room to perform the above procedure to help relieve his constant pain and infection. The nature of the problem, anticipated procedures, postop recovery/convalences and risk/complications include but not limited to infection, wound healing complications, digital amputation, hypertrophic scarring, numbness, tingling, chronic pain, CRPS, over and under correction, recurrence of deformity, DVT and or PE and the need for further surgery have been discussed in great detail with the patient. All questions have been answered to the patient's satisfaction. There are no guarantees given as to the outcome of the procedure. Description of Procedure: Under mild sedation, the patient was brought into the operating room and placed on the operating table in supine position. Once the patient was under general anesthesia with laryngeal mask airway, the left lower extremity was blocked using approximately 20 cc0.5% Marcaine plain. Next, a well-padded thigh tourniquet was applied to the left lower extremity. Next, the left lower extremity was prepped and draped in normal aseptic manner. Next, a timeout was then undertaken verifying the correct patient, extremity, visibility of preoperative markings, availability of the equipment. Next, attention was directed to the left lower extremity. Using a 6 inch Esmarch, left lower extremity was exsanguinated and elevated to 60 degrees for 1 minute. Procedure #1: Incision and drainage, left heel Next, attention was directed to the medial aspect of the left heel. Using a sterile skin marker the incision was marked out half a centimeter proximal to the draining sinus full-thickness wound to the medial left heel. Using a #15 blade a full-thickness incision down to subcutaneous tissue was performed. Continued blunt dissection was carried down to the level of the draining sinus/soft tissue that was confirmed with magnetic resonance imaging. Continued incision and drainage as well as excisional debridement was continued with Yuepu Sifang ultrasonic debrider. All soft tissue was eventually removed with rongeur. Deep culture was taken and passed the back table to sent off for microbiology and culture sensitivity. Continue dissection was noted around the plantar vault and there showed no evidence of remaining necrotic soft tissue. No violation of the neurovascular bundle was observed. Additional deep soft tissue was removed with rongeur passed back table to be sent off for microbiology culture and sensitivity. The incision was flushed with copious normal saline. The incision was packed with 1 g of vancomycin powder. Procedure #2: Delayed primary closure, left heel Next, the deep layer was reapproximated closed using 3-0 Monocryl and running locking suture technique. The skin was reapproximated and closed with 2-0 nylon in a combination of horizontal and vertical mattress suture. The left lower extremity was wiped clean and patted dry. The incision was dressed with Betadine soaked Adaptic, Betadine soaked gauze, dry sterile dressing and a single layer Rosado compression bandage was donned to left lower extremity. The patient tolerated the procedure and anesthesia well and apparent satisfactory condition and was transported to the PACU for further monitoring prior to discharge back to the floor. Vital signs stable and vascular status intact to all digits bilateral. Post Operative Plan: Weightbearing: No weightbearing to left lower extremity. Full weightbearing to the right lower extremity. Antibiotics: Vancomycin and Zosyn DVT Prophylaxis: [place]: None Dressing: Betadine soaked Adaptic, Betadine soaked gauze, dry sterile dressing single-layer Rosado compression bandage X-Rays: Not needed for this case Pain Medication: Per medicine Follow-up: At this time I am recommending a PICC line IV antibiotics for at least 4 to 6 weeks. He was successful culture taken from the left heel plantar vault for further identification of organisms. Patient will need to be nonweightbearing to left lower extremity for at least 3 to 4 weeks to allow his incision to heal. Patient will continue to follow Dr. Spann at the wound care center will need to follow-up next Tuesday when discharged. SNF placement will be up to patient's evaluation postop through PT/OT.
--- NOTE | 2023-10-25 08:46 | PCM.POST.ANE ---
Anesthesia: Postop Eval I Current Vital Signs Temperature: 97.3 F Pulse Rate: 86 Blood Pressure: 96/44 Respiratory Rate: 16 Pulse Ox: 95 Oxygen Delivery Method: Room Air Assessment Airway patent: Yes Spontaneous unlabored respirations: Yes Mental status: Asleep nausea: No Vomiting: No Anesthesia Complication: No Fluid Hydration Crystalloid volume administer (ml): 700 Total IV fluid infused: 700 Progress Note Post-operative progress note: EBL minimal Anesthesia document: Postop Eval 1 completed: Yes
--- NOTE | 2023-10-25 09:10 | POSTOPAN2_ITS ---
Anesthesia Postop Eval I Sum Postop Eval Completion status Anesthesia document: Postop Eval 1 completed: Yes Anesthesia Postop Eval I Summary Anesthesia Postop Eval I Summary: Anesthesia Postop Eval I: Assessment Summary Airway patent Yes 10/25/23 08:47 PHYSICAL THERAPY [email or web address] Spontaneous unlabored Yes 10/25/23 08:47 PHYSICAL THERAPY COORDINATORPRISCILLA respirations Mental status Asleep 10/25/23 08:47 PHYSICAL THERAPY COORDINATOR.[email or web address] nausea No 10/25/23 08:47 PHYSICAL THERAPY COORDINATOR.[email or web address] Vomiting No 10/25/23 08:47 PHYSICAL THERAPY COORDINATORPRISCILLA Anesthesia Postop Eval I: Fluid Summary Crystalloid volume administer 700 10/25/23 08:47 PHYSICAL THERAPY COORDINATOR.ANGELA (ml) Colloids volume administered ( ml) Blood Product volume administered (ml) Total IV fluid infused 700 10/25/23 08:47 PHYSICAL THERAPY COORDINATORPRISCILLA Anesthesia Postop Eval I: Summary Notes Anesthesia Complication No 10/25/23 08:47 PHYSICAL THERAPY COORDINATORPRISCILLA Anesthesia Complication Comment: Post-operative progress note EBL minimal 10/25/23 08:47 PHYSICAL THERAPY COORDINATORPRISCILLA Anesthesia: Postop Eval II Evaluation Mental status: Awake and Calm Pain Level: 1 nausea: No Vomiting: No Complications Anesthesia Complication: No
--- NOTE | 2023-10-25 09:10 | PCM.POSTANE2 ---
Anesthesia Postop Eval I Sum Postop Eval Completion status Anesthesia document: Postop Eval 1 completed: Yes Anesthesia Postop Eval I Summary Anesthesia Postop Eval I Summary: Anesthesia Postop Eval I: Assessment Summary Airway patent Yes 10/25/23 08:47 PAINT MIXER [email or web address] Spontaneous unlabored Yes 10/25/23 08:47 PAINT MIXER HANDPRISCILLA respirations Mental status Asleep 10/25/23 08:47 PAINT [email or web address] HAND.[email or web address] nausea No 10/25/23 08:47 PAINT MIXER HAND.[email or web address] Vomiting No 10/25/23 08:47 PAINT MIXER HANDPRISCILLA Anesthesia Postop Eval I: Fluid Summary Crystalloid volume administer 700 10/25/23 08:47 PAINT MIXER HAND.ANGELA (ml) Colloids volume administered ( ml) Blood Product volume administered (ml) Total IV fluid infused 700 10/25/23 08:47 PAINT MIXER HANDPRISCILLA Anesthesia Postop Eval I: Summary Notes Anesthesia Complication No 10/25/23 08:47 PAINT MIXER HANDPRISCILLA Anesthesia Complication Comment: Post-operative progress note EBL minimal 10/25/23 08:47 PAINT MIXER HANDPRISCILLA Anesthesia: Postop Eval II Evaluation Mental status: Awake and Calm Pain Level: 1 nausea: No Vomiting: No Complications Anesthesia Complication: No
[2023-10-25 11:47] LABS: Bedside Glucose 305 mg/dL (74-106)
[2023-10-25] MEDS: Gabapentin 800 MG Tablet PO ×3 (11:54→22:08)
[2023-10-25] MEDS: Acetaminophen 325 MG Tablet 650 MG PO (11:54)
[2023-10-25] MEDS: Furosemide 40 MG Tablet PO ×2 (11:55→17:20)
[2023-10-25] MEDS: oxyCODONE 5 MG Tablet 10 MG PO ×3 (11:55→22:08)
[2023-10-25] MEDS: Insulin Glargine-YFGN 100 UNIT/ML Pen 30 UNIT SC ×2 (11:57→22:12)
[2023-10-25] MEDS: Insulin Lispro 100 UNIT/ML INSULN.PEN SC ×2 (11:58→17:24)
[2023-10-25] MEDS: amLODIPine 5 MG Tablet PO (11:59)
[2023-10-25] MEDS: Lisinopril 10 MG Tablet PO ×2 (12:00→22:09)
[2023-10-25] MEDS: Cholecalciferol (Vit D3) 125 MCG CAPSULE (5,000 UNITS) PO (12:01)
[2023-10-25] MEDS: Finasteride 5 MG Tablet PO (12:03)
[2023-10-25] MEDS: Pantoprazole Sodium 40 MG Tablet PO (12:03)
--- NOTE | 2023-10-25 15:32 | CASEMGMT ---
DOMINIC MARIE to pt room to discuss dc plan. Pt receiving PICC line currently, came out of room to discuss. She states she has spoke with pt and would like pt to go to [facility]. Pt has not fully agreed to this yet. Will plan for pt to have therapy tomorrow and see how he does then determine. DOMINIC MARIE to follow up. Updated SW.
[2023-10-25] MEDS: Potassium Chloride Oral Tablet 20 MEQ 40 MEQ PO (17:20)
[2023-10-25 17:36] LABS: Bedside Glucose 306 mg/dL (74-106)
[2023-10-25] MEDS: Atorvastatin Calcium 80 MG Tablet PO (22:09)
[2023-10-25 22:33] LABS: Bedside Glucose 358 mg/dL (74-106)
[2023-10-26 03:33] VITALS: BP 138/72; PULSE 65; RESP 16; TEMP 36.6; O2SAT 95; BMI 39.0
[2023-10-26 04:44] VITALS: BMI 39.1
[2023-10-26] MEDS: Piperacil/Tazobactam 3.375 GM in 0.9% Normal Saline (50mL MB+) 50 ML IV ×2 (06:03→14:12)
[2023-10-26] MEDS: Insulin Lispro 100 UNIT/ML INSULN.PEN SC ×3 (06:07→16:42)
--- NOTE | 2023-10-26 06:20 | PCM.PN.HOSP ---
Reason for Visit Reason for Visit: Diagnoses Type 2 diabetes mellitus with diabetic polyneuropathy (10/20/23) Type 2 diabetes mellitus with other skin complications (10/20/23) Cellulitis of left lower limb (10/20/23) Local infection of the skin and subcutaneous tissue, unspecified (10/20/23) Non-pressure chronic ulcer of other part of left foot with fat layer exposed (10/20/23) Other specified health status (10/20/23) intermediate (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 of anticoagulants (10/20/23) Subjective Subjective Patient with no acute events overnight per self and per nursing report. Patient does report that his pain to operative intervention site 3-4 out of 10 in severity, throbbing aching but is improving with recent morphine administration with associated fatigue. Discussed need upon discharge for consideration of skilled facility with both him and his and although he is a reticent his notes she would be unable to safely care for him there therefore discussed with case management social work and awaiting further input. Patient denies fevers, chills, nausea, emesis, abdominal pain, chest pain or dyspnea. Objective Data Objective Data Vital Signs: Vital Signs Temp Pulse Resp BP Pulse Ox O2 Del Method 98 F 65 16 138/72 H 95 Room Air 10/26/23 03:33 10/26/23 03:33 10/26/23 03:33 10/26/23 03:33 10/26/23 03:33 10/26/23 03:33 Oxygen Delivery Method Room Air Weight: 288 lb 9.361 oz Body Mass Index (BMI) 39.1 Intake & Output: Intake and Output for Last 24 Hours 10/24/23 10/25/23 10/26/23 23:59 23:59 23:59 Intake Total 810 / 810 1900 / 1900 50 / 50 Output Total 2800 / 2800 500 / 900 400 / 400 Balance -1989 / -1989 1400 / 1000 -350 / -350 Lab / Micro Data 10/26/23 06:45 10/26/23 06:45 Labs: Laboratory Results - last 24 hr 10/25/23 05:45: WBC 12.4 H, RBC 4.34 L, Hgb 12.7 L, Hct 38.7 L, MCV 89.2, MCH 29.3, MCHC 32.8, RDW Std Deviation 42.4, RDW Coeff of King 12.9, Plt Count 250, MPV 11.5, Immature Gran % (Auto) 0.500, Neut % (Auto) 63.3, Lymph % (Auto) 20.7, [place] % (Auto) 8.2, Eos % (Auto) 6.7 H, Baso % (Auto) 0.6, Absolute Neuts (auto) 7.8 H, Absolute Lymphs (auto) 2.56, Nucleated RBC % 0, Sodium 136, Potassium 3.4 L, Chloride 101, Carbon Dioxide 30.0, Anion Gap 5, BUN 27 H, Creatinine 1.31 H, Estim Creat Clear Calc 66.96, Est GFR (MDRD) Af Amer 68, Est GFR (MDRD) Non-Af 56 L, BUN/Creatinine Ratio 20.6 H, Glucose 261 H, Calcium 9.2, Total Bilirubin 0.60, AST 18, ALT 23, Alkaline Phosphatase 121 H, Total Protein 6.0 L, Albumin 2.5 L, Globulin 3.5, Albumin/Globulin Ratio 0.7 L 10/25/23 05:55: POC Glucose 251 H 10/25/23 11:29: POC Glucose 305 H 10/25/23 17:14: POC Glucose 306 H 10/25/23 22:05: POC Glucose 358 H Micro: Microbiology 10/25/23 08:52 Tissue - Left Foot Gram Stain - Final 10/25/23 08:52 Tissue - Left Foot Gram Stain - Final 10/20/23 14:12 Blood Culture (Wb) - Anticubital Right Blood Culture - Final No growth in 5 days. 10/20/23 17:30 Urine, Clean Catch Urine Culture - Final Culture exhibits no growth. 10/20/23 17:30 Wound - Left Foot Gram Stain - Final 10/20/23 17:30 Wound - Left Foot Wound Culture - Final Pseudomonas aeruginosa Meth. resistant Staph. aureus Physical Exam Narrative Physical Examination: General: Awake, alert, oriented x 3 and cooperative, seated upright in the MS bed, fatigued, status post recent OR, status post I&D with necrotic tissue debridement with dressing in place, notes pain currently controlled but given recent regimen. Skin: Normal color, normal turgor, no icterus, no cyanosis except for upon bilateral lower extremity venous stasis skin changes, status post left heel debridement/I&D with necrotic tissue removal with dressing in place with no current drainage noted. HEENT: AT/NC, EOMI with chronic vision deficits known baseline/legal blindness, MMM. Lungs: Mildly diminished, greater bases, appropriate effort, no rales, ronchi or wheezing. Heart: Regular rate and rhythm; no gallop, rub audible. Abdomen: Soft, obese, NTTP, ND, normal BS. Extremities: No cyanosis, no clubbing, see skin, bilateral lower extremity chronic lymphedema/edema present 1-2+, see skin. Neurological: Patient awake, alert, oriented as noted, cognitive function intact; pupils equally reactive to light and accommodation, cranial nerves grossly normal, moving all 4 extremities but somewhat limited given recent OR, sedated regimen and fatigue, no focal deficits, strength moderately to severely global decreased. Psychiatric: Affect appears fatigued, but more interactive than day prior, no acute evidence of depressive or anxiety feelings. Assessment & Plan Assessment/Plan (1) Cellulitis of left lower limb: (2) Diabetic foot infection: PLAN: Plan The patient is a 77 y/o M w/ PMHx: CKD stage IIIa, Obesity, Hypothyroidism, HTN, HLD, Chronic back pain, Diabetes mellitus type II, PAF, Legal blindness with Retinitis pigmentosa, GERD, Hx Frequent PVCs, Chronic BL LE venous stasis disease/lymphedema and Chronic diabetic heel ulcers being followed outpatient, Chronic anemia/Fe deficiency anemia who presents to the [facility] ED on 10/20/23 with wound to the L foot following with Podiatry Dr. Spann and Dr. Jensen [facility] noted to be worsening. #1. Acute LLE Diabetic Pseudomonas aeruginosa/MRSA infected wound/ulcer/cellulitis: Admission CBC with no marked WBC elevation, ESR 10, CRP 15.6, plain film of the left foot with osteopenia and osteoarthritic changes and diffuse soft tissue swelling, recent MRI 09/24/2023 with deep subcutaneous phlegmon pocket deep into the superficial skin ulcer on the medial and posterior aspect of the calcaneus without any evidence of osteomyelitis at that time. Patient mated to medical surgical floor, maintained on IV meropenem and IV vancomycin based on previous wound cultures, wound cultures obtained with noted Pseudomonas and MRSA, hemoglobin A1c 6.3%. Podiatry evaluating with recommended continued daily Betadine wet-to-dry dressings with sterile dry dressing as well as Kd bandage for compression wrap from the base of the toes to proximal calf with nonweightbearing to the left lower extremity. 10/24/23 OR 10/25/[address] Spann with incision and drainage left lower extremity with removal of necrotic tissue secondary to full-thickness ulceration of the medial left head and cellulitis with pending OR cultures. PT/OT/case management/wound RN consulted and following with encouragement 10/26/23 discussions with patient and for SNF placement at discharge. 10/25/23 PICC line placed. #2. Hypokalemia: Admission K+ 3.4, magnesium recently obtained and normal, supplementation given, 10/16/23 potassium 4.0. #3. Diabetes mellitus type II with chronic neuropathy: Hold oral home regimen, continue home insulin regimen, ADA diet, accu checks w/ ISS, continue home gabapentin regimen, hemoglobin A1c 6.3%. #4. Chronic normocytic anemia/iron deficiency anemia: Admission hemoglobin 11.8, MCV 93, baseline hemoglobin primarily 10-12, 10/26/2023 hemoglobin 11.7, MCV 88.4, will continue to trend CBC. #5. Hypertension: Continue home regimen including Norvasc, Lasix, lisinopril PRN hydralazine. #6. Hyperlipidemia: We will continue patient on statin therapy. #7. PAF: Not on rate or rhythm agent, temporarily held eliquis for OR 10/25/23, reviewed with podiatry and will resume 10/26/2023. #8. Hypothyroidism: Previously on levothyroxine, noted upon admission not taking, TSH 2.210 and free T4 0.74. #9. Obesity: Weight loss and lifestyle changes encouraged. #10. History retinitis pigmentosa with chronic legal blindness: Maintain on fall precautions, case management/PT/OT consulted for discharge planning. #11. Chronic bilateral lower extremity lymphedema/venous stasis/ulcers: We will place snug kd wraps with elevation, wound care consult, podiatry following as noted, Lasix as needed. #12. Chronic Kidney Disease Stage IIIa: Admission BUN/Cr 18/1.13, baseline renal function 1.1-1.3, 10/26/2023 BUN/creatinine 32/1.42, GFR 81, continue to trend. #13. BPH: We will continue patient home finasteride chronic regimen, straight cath as needed. #14. GERD: We will continue patient on PPI. #15. DVT prophylaxis: Eliquis held for OR 10/25/23, podiatry amenable for restart 10/26/2023. #16. CODE status: DNR-CCA no intubation status. Charges/Coding Visit Charges Inpatient E&M: 65621 Subs Hosp L2
[2023-10-26 06:27] LABS: Bedside Glucose 299 mg/dL (74-106)
[2023-10-26 06:32] VITALS: BMI 39.0
[2023-10-26 06:52] LABS: Absolute Neutrophil Count 11.4 X10^3/uL (2.0-7.7); Basophil# 0.03 X10^3/uL; Basophil% 0.2 % (0-1); Eosinophil# 0.03 X10^3/uL; Eosinophils% 0.2 % (0-5); Hematocrit 35.7 % (40-54); Hemoglobin 11.7 g/dL (13.0-16.5); Lymphocyte % 18.2 % (19-41); Mean Corp Hgb Conc 32.8 g/dL (32-36); Mean Corpuscular Volume 88.4 fL (80-94); Mean Platelet Vol. 11.3 fl (6.2-12.0); Monocyte# 0.98 X10^3/uL; Monocyte% 6.4 % (0-10); NRBC Flagged by Analyzer 0 % (0-5); Neutrophil # 11.42 X10^3/uL (2.7-7.7); Neutrophil % 74.4 % (47-70); Platelet Count 241 K/mm3 (150-450); RBC Distribution Width CV 12.9 % (11.6-14.6); RBC Distribution Width SD 42.2 fl (35.1-43.9); Red Blood Count 4.04 M/mm3 (4.6-6.2); White Blood Count 15.4 K/mm3 (4.4-11.0)
[2023-10-26 07:19] LABS: ALB/GLOB Ratio 0.7 RATIO (0.9-2.4); AST(SGOT) 26 U/L (15-37); Alanine Aminotransfer ALT/SGPT 35 U/L (16-61); Albumin, Serum 2.6 g/dL (3.2-5.0); Alkaline Phosphatase 121 U/L (45-117); Anion Gap 5 (5-15); BUN 32 mg/dL (7-18); BUN/Creat Ratio 22.5 RATIO (10-20); Calcium,Total 9.2 mg/dL (8.5-10.1); Chloride 100 mmol/L (98-107); Creatinine, Serum 1.42 mg/dL (0.70-1.30); EST Glomerular Filtration Rate 51 mL/min (>60); Est Glom Filt Rate - Afr Amer 62 mL/min (>60); Estimated Creatinine Clearance 61.92 ml/min; Globulin 3.5 g/dL (2.2-4.2); Glucose 289 mg/dL (74-106); Protein, Total 6.1 g/dL (6.4-8.2); Sodium Level 134 mmol/L (136-145)
[2023-10-26 07:30] LABS: Vancomycin, Trough Level 26.6 ug/mL (5.0-15.0)
[2023-10-26] MEDS: Acetaminophen 325 MG Tablet 650 MG PO ×2 (07:40→16:53)
[2023-10-26] MEDS: oxyCODONE 5 MG Tablet 10 MG PO ×2 (07:40→16:53)
--- NOTE | 2023-10-26 08:09 | PCM.RX.CS ---
Consult Antibiotic Management Pharmacy has been consulted to manage selected antibiotic: Vancomycin Type of Intervention Type of Consult: Follow-up Suspected Infection Suspected Infection: Skin/Soft tissue Prior Doses of Antibiotics Prior Doses of Antibiotics Received/Current Regimen: current dose is 1000mg IV q12h Labs Labs: Sodium 134 mmol/L (136-145) L 10/26/23 06:45 Potassium 4.0 mmol/L (3.5-5.1) 10/26/23 06:45 Chloride 100 mmol/L (98-107) 10/26/23 06:45 Carbon Dioxide 29.0 mmol/L (21.0-32.0) 10/26/23 06:45 Anion Gap 5 (5-15) 10/26/23 06:45 BUN 32 mg/dL (7-18) H 10/26/23 06:45 Creatinine 1.42 mg/dL (0.70-1.30) H 10/26/23 06:45 Est GFR (MDRD) Af Amer 62 mL/min (>60) 10/26/23 06:45 Est GFR (MDRD) Non-Af 51 mL/min (>60) L 10/26/23 06:45 BUN/Creatinine Ratio 22.5 RATIO (10-20) H 10/26/23 06:45 Glucose 289 mg/dL (74-106) H 10/26/23 06:45 Vancomycin Trough 26.6 ug/mL (5.0-15.0) H 10/26/23 06:45 Random Vancomycin 18.4 ug/mL (0.0-15.0) H 10/24/23 16:40 Microbiology Microbiology: Microbiology 10/25/23 08:52 Tissue - Left Foot Gram Stain - Final 10/25/23 08:52 Tissue - Left Foot Gram Stain - Final 10/20/23 14:12 Blood Culture (Wb) - Anticubital Right Blood Culture - Final No growth in 5 days. 10/20/23 17:30 Urine, Clean Catch Urine Culture - Final Culture exhibits no growth. 10/20/23 17:30 Wound - Left Foot Gram Stain - Final 10/20/23 17:30 Wound - Left Foot Wound Culture - Final Pseudomonas aeruginosa Meth. resistant Staph. aureus Dosing Weight Weight used for dosin.9 kg Estimated Creatinine Clearance Estimated Creatinine Clearance: 62 ml/min Goal Trough Goal Trough: 15-20 mcg/mL Pharmacy Plan for Drug Dosing Pharmacy Plan for Drug Dosing: The vanc trough level drawn at 06:45 today was 26.6 (drawn approx 12 hrs after the previous dose). This is above goal range so will hold current dose. Will order a random level for tonight at 22:00. If that is <20, will be able to resume dosing at a newly calculated dose. Of note, the patient's SCr increased to 1.42 today from 1.31 and 1.17 the previous two days. Pharmacy Service will continue to monitor and adjust dosing as required. Follow-Up Labs Follow-Up Labs: Trough: Vancomycin (random) Date/Time Labs Ordered Labs to be done on [date and time ordered]: 10/26/23 22:00
[2023-10-26] MEDS: Vancomycin Trough/Random Due 1 LAB MC (08:10)
--- NOTE | 2023-10-26 08:33 | PN.SURG_ITS ---
Subjective Subjective Mr. Renae is a 77-year-old diabetic male seen at bedside today for follow-up evaluation of status post incision and drainage with delayed primary closure to the left medial heel. DOS: 10/25/2023. Patient denies any pain to the left heel. No acute events overnight. He denies trauma. Denies constitutional symptoms. No other pedal complaints at this time. Objective Data Objective Data Vital Signs: Vital Signs Temp Pulse Resp BP Pulse Ox O2 Del Method 98 F 65 16 138/72 H 95 Room Air 10/26/23 03:33 10/26/23 03:33 10/26/23 03:33 10/26/23 03:33 10/26/23 03:33 10/26/23 03:33 Oxygen Delivery Method Room Air Weight: 130.9 kg Body Mass Index (BMI) 39.1 Intake & Output: Intake and Output for Last 24 Hours 10/24/23 10/25/23 10/26/23 23:59 23:59 23:59 Intake Total 810 / 810 1900 / 1900 50 / 50 Output Total 2800 / 2800 500 / 900 700 / 700 Balance -1989 / -1989 1400 / 1000 -650 / -650 Lab / Micro Data 10/26/23 06:45 10/26/23 06:45 Labs: Laboratory Results - last 24 hr 10/25/23 11:29: POC Glucose 305 H 10/25/23 17:14: POC Glucose 306 H 10/25/23 22:05: POC Glucose 358 H 10/26/23 06:06: POC Glucose 299 H 10/26/23 06:45: WBC 15.4 H, RBC 4.04 L, Hgb 11.7 L, Hct 35.7 L, MCV 88.4, MCH 29.0, MCHC 32.8, RDW Std Deviation 42.2, RDW Coeff of King 12.9, Plt Count 241, MPV 11.3, Immature Gran % (Auto) 0.600, Neut % (Auto) 74.4 H, Lymph % (Auto) 18.2 L, Martin % (Auto) 6.4, Eos % (Auto) 0.2, Baso % (Auto) 0.2, Absolute Neuts (auto) 11.4 H, Absolute Lymphs (auto) 2.80, Nucleated RBC % 0, Sodium 134 L, Potassium 4.0, Chloride 100, Carbon Dioxide 29.0, Anion Gap 5, BUN 32 H, C reatinine 1.42 H, Estim Creat Clear Calc 61.92, Est GFR (MDRD) Af Amer 62, Est GFR (MDRD) Non-Af 51 L, BUN/Creatinine Ratio 22.5 H, Glucose 289 H, Calcium 9.2, Total Bilirubin 0.60, AST 26, ALT 35, Alkaline Phosphatase 121 H, Total Protein 6.1 L, Albumin 2.6 L, Globulin 3.5, Albumin/Globulin Ratio 0.7 L, Vancomycin Trough 26.6 H Micro: Microbiology 10/25/23 08:52 Tissue - Left Foot Gram Stain - Final 10/25/23 08:52 Tissue - Left Foot Gram Stain - Final 10/20/23 14:12 Blood Culture (Wb) - Anticubital Right Blood Culture - Final No growth in 5 days. 10/20/23 17:30 Urine, Clean Catch Urine Culture - Final Culture exhibits no growth. 10/20/23 17:30 Wound - Left Foot Gram Stain - Final 10/20/23 17:30 Wound - Left Foot Wound Culture - Final Pseudomonas aeruginosa Meth. resistant Staph. aureus Physical Exam Narrative Neurovascular status is unchanged to the left lower extremity. Nonpitting edema appreciated to the distal and proximal aspect of the left lower extremity dressing. No pain on palpation of the medial heel. No pain with calf pressure. Assessment & Plan Assessment/Plan (1) Non-pressure chronic ulcer of other part of left foot with fat layer exposed: PLAN: Patient was examined and evaluated. All findings were discussed with the patient. All questions were answered to the patient's satisfaction. Patient is recovering well from his left lower extremity surgery. DOS: 10/25/2023. Dressing is to remain clean dry and intact until he follows up at the wound care center with Dr. Spann next Tuesday. Patient will be nonweightbearing to left lower extremity. Full weightbearing to the right lower extremity. Surgery culture: Gram-positive organism PICC line was placed and will be getting IV antibiotics based on recommendations through infectious disease. Medicine: On board, medical management Infectious disease: On board, PICC line antibiotics Vanco and Zosyn for 4 weeks, weekly labs, stop date: 11/22/2023. ID follow-up in 3 weeks. Social work: On board, discharge planning, patient will be discharged to SNF Patient is cleared from a podiatry perspective to discharge to SNF when approved and with clearance from medicine and infectious disease team. Patient will follow-up with Dr. Spann at the wound care center in 1 week. Patient's left lower extremity dressing remain clean dry and intact and will change when the patient arrives at the wound care center next Tuesday. Thank you for letting me be involved with the patient care. (2) Cellulitis of left lower limb: (3) Diabetic foot infection:
[2023-10-26 10:12] VITALS: BP 116/67; PULSE 65; RESP 16; TEMP 36.8; O2SAT 100
[2023-10-26] MEDS: APIXABAN 5 MG TABLET PO (10:28)
[2023-10-26] MEDS: amLODIPine 5 MG Tablet PO (10:32)
[2023-10-26] MEDS: Cholecalciferol (Vit D3) 125 MCG CAPSULE (5,000 UNITS) PO (10:32)
[2023-10-26] MEDS: Gabapentin 800 MG Tablet PO ×3 (10:32→16:47)
[2023-10-26] MEDS: Finasteride 5 MG Tablet PO (10:32)
[2023-10-26] MEDS: Pantoprazole Sodium 40 MG Tablet PO (10:32)
[2023-10-26] MEDS: Lisinopril 10 MG Tablet PO (10:32)
[2023-10-26] MEDS: Furosemide 40 MG Tablet PO ×2 (10:32→16:46)
--- NOTE | 2023-10-26 10:43 | CASEMGMT ---
Addendum entered by Maddi Abdul 10/26/23 11:23: Pt referral to [facility] approved; pt advised. Original Note: Social Work- SW met with pt and to discuss preferences at d/c. Pt had previously been provided a list of SNF providers including quality and resource use data and consistent with the patient?s preferred geographic region, medical needs, and insurance network were provided from the [facility] Guide. After discussion, pt chose [facility], as he has been there prior. DCA advised that referral can be made. SW will remain available to follow. TIKA Choi
--- NOTE | 2023-10-26 10:44 | CASEMGMT ---
Addendum entered by Keisha Hutchinson 10/26/23 11:27: Patient has been accepted by [facility]. SW updated. Keisha Hutchinson DC Planning Asst. Original Note: [facility] Keisha Hutchinson DC Planning Asst.
[2023-10-26] MEDS: Insulin Glargine-YFGN 100 UNIT/ML Pen 30 UNIT SC (11:12)
[2023-10-26 11:18] LABS: Bedside Glucose 285 mg/dL (74-106)
--- NOTE | 2023-10-26 13:22 | PCM.PN.ID ---
Physical Exam Narrative Feeling better, pain controlled, no fever, no n/v/d. Const alert and no apparent distress General Appearance: cooperative Resp normal air movement and clear to auscultation bilaterally Cardio regular rate and regular rhythm GI soft to palpation, non-tender and non-distended Skin no rashes or lesions noted ID ID: Route of nutrition/ use of supplements: [] Nutritional Intake: [] IV Site: [] [place] Catheter: [] Assessment & Plan Assessment/Plan (1) Cellulitis of left lower limb: PLAN: Wound cx with PsA and MRSA. Podiatry following, OR 10/25/[address] Spann for I&D. Cont vanc/zosyn, picc in place, will write for 4 week course with weekly labs, stop date 11/22/23. ID followup in 3 weeks. Will follow (2) Type 2 diabetes mellitus with diabetic polyneuropathy:
[2023-10-26 14:08] VITALS: BP 129/62; PULSE 64; RESP 16; TEMP 36.7; O2SAT 97
--- NOTE | 2023-10-26 16:00 | TREXTCAR_ITS ---
Diet Diet Order/Speech Therapy: 10/25/23 09:01 Diet: Cardiac - Heart Healthy Dietary Modifications:: Consistent Carbohydrate Type of Dietary Supplement:: Vijay Diet Comments: fruit punch vijay bid Routine Orders/Code Status Suppository Type: Dulcolax 10mg Suppository Frequency: Daily PRN Routine Lab Work: - (Please continue weekly labs per ID Rx given ongoing IV vanc and zosyn therapies.) Code Status: DNRCC-A (DNR-CCA, no intubation.) Wound(s) L heel: Wound Type: Surgical Incision Dressing Change: betadine gauze left foot: Wound Type: Neuropathic/Diabetic Foot Ulcer Dressing Change: PER PODIATRY KEEP CURRENT DRESSING INTACT. If any concerns call Dr. Spann. Suggestions for Active Care Change Position every (hours): 2 Hours to sit in a chair: 6 Times a day to sit in chair: 3 Therapies Weight Bearing: Non weight bearing (NWB to the LLE.) Extremity Affected:: Left Lower Physical Therapy: Eval and Treat Occupational Therapy: Eval and Treat Problem/Diagnosis (1) Cellulitis of left lower limb: Status: Acute Code(s): L03.116 - Cellulitis of left lower limb (2) Type 2 diabetes mellitus with diabetic polyneuropathy: Status: Chronic Code(s): E11.42 - Type 2 diabetes mellitus with diabetic polyneuropathy Plan The patient is a 77 y/o M w/ PMHx: CKD stage IIIa, Obesity, Hypothyroidism, HTN, HLD, Chronic back pain, Diabetes mellitus type II, PAF, Legal blindness with Retinitis pigmentosa, GERD, Hx Frequent PVCs, Chronic BL LE venous stasis disease/lymphedema and Chronic diabetic heel ulcers being followed outpatient, Chronic anemia/Fe deficiency anemia who presents [facility] the [facility] ED on 10/20/23 with wound to the L foot following with Podiatry Dr. Spann and Dr. Jensen at the [facility] noted to be worsening. #1. Acute LLE Diabetic Pseudomonas aeruginosa/MRSA infected wound/ulcer/cellulitis: Admission CBC with no marked WBC elevation, ESR 10, CRP 15.6, plain film of the left foot with osteopenia and osteoarthritic changes and diffuse soft tissue swelling, recent MRI 09/24/2023 with deep subcutaneous phlegmon pocket deep into the superficial skin ulcer on the medial and posterior aspect of the calcaneus without any evidence of osteomyelitis at that time. Patient admitted to medical surgical floor, initially treated with IV meropenem and IV vancomycin based on previous wound cultures, wound cultures obtained with noted Pseudomonas and MRSA w/ abx at discharge transitioned to IV vanc and IV zosyn with planned weekly labs per ID and stop date noted 11/22/23, hemoglobin A1c 6.3%. Initial podiatric care with daily Betadine wet-to-dry dressings with sterile dry dressing as well as Kd bandage for compression wrap from the base of the toes to proximal calf with nonweightbearing to the left lower extremity. 10/24/23 OR 10/25/[address] Spann with incision and drainage left lower extremity with removal of necrotic tissue secondary to full-thickness ulceration of the medial left head. 10/25/23 PICC line placed. Patient given clinical stability discharged to SNF with planned infectious disease follow-up in 3 weeks, podiatry follow-up at the wound care center #2. Hypokalemia: Admission K+ 3.4, magnesium recently obtained and normal, supplementation given, 10/16/23 potassium 4.0. #3. Diabetes mellitus type II with chronic neuropathy: Hold oral home regimen, continue home insulin regimen, ADA diet, accu checks w/ ISS, continue home gabapentin regimen, hemoglobin A1c 6.3%. #4. Chronic normocytic anemia/iron deficiency anemia: Admission hemoglobin 11.8, MCV 93, baseline hemoglobin primarily 10-12, 10/26/2023 hemoglobin 11.7, MCV 88.4, will continue to trend CBC. #5. Hypertension: Continue home regimen including Norvasc, Lasix, lisinopril PRN hydralazine. #6. Hyperlipidemia: We will continue patient on statin therapy. #7. PAF: Not on rate or rhythm agent, temporarily held eliquis for OR 10/25/23, reviewed with podiatry and will resume 10/26/2023. #8. Hypothyroidism: Previously on levothyroxine, noted upon admission not taking, TSH 2.210 and free T4 0.74. #9. Obesity: Weight loss and lifestyle changes encouraged. #10. History retinitis pigmentosa with chronic legal blindness: Maintain on fall precautions, case management/PT/OT consulted for discharge planning. #11. Chronic bilateral lower extremity lymphedema/venous stasis/ulcers: We will place snug kd wraps with elevation, wound care consult, podiatry following as noted, Lasix as needed. #12. Chronic Kidney Disease Stage IIIa: Admission BUN/Cr 18/1.13, baseline renal function 1.1-1.3, 10/26/2023 BUN/creatinine 32/1.42, GFR 81, continue to trend. #13. BPH: We will continue patient home finasteride chronic regimen, straight cath as needed. #14. GERD: We will continue patient on PPI. #15. DVT prophylaxis: Eliquis held for OR 10/25/23, podiatry amenable for restart 10/26/2023. #16. CODE status: DNR-CCA no intubation status. Allergies/Procedures Done in Hospital Allergies Sulfa (Sulfonamide Antibiotics) Allergy (Verified 10/20/23 13:26) Shortness of breath Gadolinium-MRI Contrast Medium (MRI) Adverse Reaction (Verified 10/20/23 13:26) Vomiting Dietary and Speech Recommendations Dietitian Recommendations/Changes: Continue cardiac, consistent carb diet and fruit punch vijay BID. Will monitor weight, as available. Reviewed and approved by Jen Dolan, RD, LD. Discharge Plan Admission Admit Date/Time: 10/20/23 15:29 Primary Reason for Your Visit: Diabetic foot infection (PsA/MRSA) Attending Provider: Marva Curtis Primary Care Provider: Angelia Conway Consulting Providers: Cherelle Tesfaye; William Fernandez; Alfred Jensen; Olaf Spann Instructions Patient Instructions: Diabetes Foot Infections Tx Additional Instructions / Restrictions: ADDITIONAL INFORMATION/FOLLOW-UP CARE: Acute LLE Diabetic Pseudomonas aeruginosa/MRSA infected wound/ulcer/cellulitis: --Plain film of the left foot with osteopenia and osteoarthritic changes and diffuse soft tissue swelling. --MRI 09/24/2023 with deep subcutaneous phlegmon pocket deep into the superficial skin ulcer on the medial and posterior aspect of the calcaneus without any evidence of osteomyelitis at that time. --10/24/23 OR 10/25/[address] Spann with incision and drainage left lower extremity with removal of necrotic tissue secondary to full-thickness ulceration of the medial left head. --Wound Cultures w/ Pseudomonas and MRSA treated with IV vancomycin and IV Zosyn with PICC line placed and plan continue 4-week course of antibiotic therapy per ID direction with weekly labs per ID direction with planned stop date 11/22/2023 and follow-up with ID in 3 weeks. --Will plan to follow-up with Dr. Spann extension service specialist in charge at the wound care center in [place] on 11/02/2023. --General care of left lower extremity: Nonweightbearing to left lower extremity, elevation with lower extremity supported above heart to assist with swelling, may leave current dressing from OR intact until follow-up with Dr. Spann per his direct instruction. --Given wound and infection your insulin was changed to twice daily insulin glargine with overlapping insulin sliding scale which will be continued upon discharge. Discharge Orders/Prescriptions Prescriptions: New piperacillin-tazobactam 3.375 gram recon soln 3.375 g IV Q8H 26 Days Rx Instructions: stop date 11/22/23. Dx: pseudomonas infection weekly bmp, cbc, vanc trough, and esr. Fax to [phone]. routine picc care per protocol. vancomycin 1.25 gram recon soln 1.25 g IV Q24H 26 Days Rx Instructions: stop date 11/22/23. Dx: MRSA infection weekly bmp, cbc, vanc trough, and esr. Fax to [phone]. routine picc care per protocol. furosemide [Lasix] 40 mg tablet 40 mg PO DAILY Qty: 30 0RF oxycodone 5 mg Tablet 10 mg PO Q4H PRN PRN (Reason: Pain Score 4-10) 3 Days Qty: 40 0RF insulin lispro [Humalog KwikPen Insulin] 100 unit/mL Insulin Pen See Protocol subcut TIDAC Qty: 0 0RF Protocol: 3. Sliding Scale Insulin Med Dosing Condition: 150-189 mg/dl = 1 unit Condition: 190-229 mg/dl = 2 units Condition: 230-269 mg/dl = 3 units Condition: 270-309 mg/dl = 4 units Condition: 310-349 mg/dl = 5 units Condition: 350-399 mg/dl = 6 units Condition: 400-449 mg/dl = 7 units Condition: Greater than 449 call physician Protocol Text: Suggested for: - Patients on Total Daily Insulin Dose of 37-55 units - Obese, infected, or steroid patients MEDIUM DOSING ALGORITHIM insulin glargine-yfgn 100 unit/mL (3 mL) Insulin Pen 30 unit subcut BID Qty: 0 0RF Continued finasteride 5 mg tablet 1 tab PO DAILY cholecalciferol (vitamin D3) 125 mcg (5,000 unit) capsule 125 mcg PO DAILY Eliquis 5 mg tablet 5 mg PO BID levothyroxine 25 mcg tablet PO Centrum Silver 0.4 mg-300 mcg- 250 mcg tablet 1 tab PO DAILY enalapril maleate 10 mg tablet 10 mg PO BID Patient Comments: BLOOD PRESSURE omeprazole 40 MG capsule 40 mg PO DAILY Patient Comments: ACID REFLUX gabapentin 800 MG tablet 800 mg PO 4XD Patient Comments: NERVE PAIN atorvastatin 80 MG tablet 80 mg PO QHS Patient Comments: CHOLESTEROL amlodipine 5 mg tablet 5 mg PO DAILY ondansetron 4 mg tablet,disintegrating 4 mg PO Q12H PRN (Reason: nausea and vomiting) Patient Comments: POST CHOLEYCYSTECTOMY SX vitamin E 800 unit capsule 800 unit PO DAILY cetirizine [24Hour Allergy] 10 mg tablet 10 mg PO BID PRN (Reason: allergy symptoms) Discontinued hydrocodone-acetaminophen 10-325 mg tablet 1 tab PO 4X/DAY furosemide 40 mg tablet 40 - 80 mg PO DAILY PRN (Reason: edema) Patient Comments: WATER PILL insulin aspart U-100 [Novolog FlexPen U-100 Insulin] 100 unit/mL (3 mL) insulin pen 30 unit subcut TID doxycycline hyclate 100 mg capsule 100 mg PO BID 14 Days Qty: 28 0RF Referrals / Follow Up: Olaf Spann DPM [Med Staff - Active Staff] - (Follow-up on 11/02/23 at [facility] with Dr. Spann.) Angelia Conway DO [Primary Care Provider] - (Follow-up within 1-2 weeks of SNF transition to review recent admission.) Alfred Jensen MD [Med Staff - Active Staff] - (Follow-up in 3 weeks. Send weekly labs as already ordered per ID.) Disposition Disposition (needs filled in before D/C Order can be placed): Jail Facility
--- NOTE | 2023-10-26 16:09 | PCM.DC.SUM ---
Providers Date of Admission: 10/20/23 Date of Discharge: 10/26/23 Primary Care Physician: Dr. Angelia Conway, Consultations 10/20/23 16:49 Consult: Infectious Disease Routine Consulting Provider: Alfred Jensen Reason for Consult: Infected foot wound EMERGENT Consult: No Notified: Yes Date Notified: 10/20/23 Time Notified: 17:13 Method of Notification: Text Consult: Onc/Wound/key attendant Routine Comment: Consult: Podiatry Routine Consulting Provider: Olaf Spann Reason for Consult: Infected foot wound PKTY EMERGENT Consult: No Notified: Yes Date Notified: 10/20/23 Time Notified: 17:11 Method of Notification: Text Reason For Visit: DIABETIC FOOT INFECTION, FAILED OUTPATIENT THERAPY Diagnosis Discharge Diagnosis (1) Cellulitis of left lower limb: Status: Acute Code(s): L03.116 - Cellulitis of left lower limb (2) Type 2 diabetes mellitus with diabetic polyneuropathy: Status: Chronic Code(s): E11.42 - Type 2 diabetes mellitus with diabetic polyneuropathy Plan: DISCHARGE DIAGNOSIS: #1. Acute LLE Diabetic Pseudomonas aeruginosa/MRSA infected wound/ulcer/cellulitis #2. Hypokalemia #3. Diabetes mellitus type II with chronic neuropathy #4. Chronic normocytic anemia/iron deficiency anemia #5. Hypertension #6. Hyperlipidemia #7. PAF #8. Hypothyroidism #9. Obesity #10. History retinitis pigmentosa with chronic legal blindness #11. Chronic bilateral lower extremity lymphedema/venous stasis/ulcers #12. Chronic Kidney Disease Stage IIIa #13. BPH #14. GERD #15. CODE status: DNR-CCA no intubation status. Medications at Discharge Home Medications gabapentin 800 mg tablet 800 mg PO 4XD 08/21/13 omeprazole 40 mg capsule,delayed release 40 mg PO DAILY 08/21/13 atorvastatin 80 mg tablet 80 mg PO QHS 07/25/14 finasteride 5 mg tablet 1 tab PO DAILY 01/23/20 cholecalciferol (vitamin D3) 125 mcg (5,000 unit) capsule 125 mcg PO DAILY 04/11/20 apixaban 5 mg tablet (Eliquis) 5 mg PO BID 07/02/20 amlodipine 5 mg tablet 5 mg PO DAILY 03/30/23 ondansetron 4 mg disintegrating tablet 4 mg PO Q12H PRN nausea and vomiting 03/30/23 enalapril maleate 10 mg tablet 10 mg PO BID 08/29/23 levothyroxine 25 mcg tablet mcg PO 08/29/23 tqmclsdc-xbh-gbkur acid 0.4 mg-lycopene 300 mcg-lutein 250 mcg tablet (Centrum Silver) 1 tab PO DAILY 08/29/23 cetirizine 10 mg tablet (24Hour Allergy) 10 mg PO BID PRN allergy symptoms 10/20/23 vitamin E 800 unit capsule 800 unit PO DAILY 10/20/23 furosemide 40 mg tablet (Lasix) 40 mg PO DAILY #30 tabs 10/26/23 insulin glargine-yfgn 100 unit/mL (3 mL) subcutaneous pen 30 unit (0.3 mL) subcut BID #0 mL 10/26/23 insulin lispro 100 unit/mL subcutaneous pen (Humalog KwikPen (U-100) Insulin) See Protocol subcut TIDAC #0 mL 10/26/23 oxycodone 5 mg tablet 10 mg (2 x 5 mg) PO Q4H PRN PRN Pain Score 4-10 3 days #40 tabs 10/26/23 piperacillin-tazobactam 3.375 gram intravenous solution 3.375 g IV Q8H 26 days 10/26/23 vancomycin 1.25 gram intravenous solution 1.25 g IV Q24H 26 days 10/26/23 Hospital Course Operations None Procedures - (10/25/[address] Spann with incision and drainage left lower extremity with removal of necrotic tissue.) Summary of Care Provided Minutes Spent on Discharge: 35 Hospital Course: The patient is a 77 y/o M w/ PMHx: CKD stage IIIa, Obesity, Hypothyroidism, HTN, HLD, Chronic back pain, Diabetes mellitus type II, PAF, Legal blindness with Retinitis pigmentosa, GERD, Hx Frequent PVCs, Chronic BL LE venous stasis disease/lymphedema and Chronic diabetic heel ulcers being followed outpatient, Chronic anemia/Fe deficiency anemia who presented to the [facility] ED on 10/20/23 with wound to the L foot following with Podiatry Dr. pSann and Dr. Jensen [facility] noted to be worsening. Admission CBC with no marked WBC elevation, ESR 10, CRP 15.6, plain film of the left foot with osteopenia and osteoarthritic changes and diffuse soft tissue swelling, recent MRI 09/24/2023 with deep subcutaneous phlegmon pocket deep into the superficial skin ulcer on the medial and posterior aspect of the calcaneus without any evidence of osteomyelitis at that time. Patient admitted to medical surgical floor, initially treated with IV meropenem and IV vancomycin based on previous wound cultures, wound cultures obtained with noted Pseudomonas and MRSA w/ abx at discharge transitioned to IV vanc and IV zosyn with planned weekly labs per ID and stop date noted 11/22/23, hemoglobin A1c 6.3%. Initial podiatric care with daily Betadine wet-to-dry dressings with sterile dry dressing as well as Kd bandage for compression wrap from the base of the toes to proximal calf with nonweightbearing to the left lower extremity. 10/24/23 OR 10/25/[address] Spann with incision and drainage left lower extremity with removal of necrotic tissue secondary to full-thickness ulceration of the medial left head. 10/25/23 PICC line placed. Patient given clinical stability discharged to SNF with planned infectious disease follow-up in 3 weeks, podiatry follow-up at the wound care center 11/02/23 with current dressing to remain in place until that time. Patient transitioned from home insulin regimen to glargine 30 u BID, ADA diet, accu checks w/ ISS, continued home gabapentin regimen, hemoglobin A1c 6.3%. Admission hemoglobin 11.8, MCV 93, baseline hemoglobin primarily 10-12, 10/26/2023 hemoglobin 11.7. Eliquis held for OR but cleared for restart 10/26/23 per Podiatry. Admission BUN/Cr 18/1.13, baseline renal function 1.1-1.3, 10/26/2023 BUN/creatinine 32/1.42, GFR 81, continue to trend. Weight / BMI Weight Weight: 288 lb 9.361 oz Body Mass Index (BMI) 39.1 ABG / Lab / Microbiology Data 10/26/23 06:45 10/26/23 06:45 Laboratory: Laboratory Results - last 24 hr 10/25/23 17:14: POC Glucose 306 H 10/25/23 22:05: POC Glucose 358 H 10/26/23 06:06: POC Glucose 299 H 10/26/23 06:45: WBC 15.4 H, RBC 4.04 L, Hgb 11.7 L, Hct 35.7 L, MCV 88.4, MCH 29.0, MCHC 32.8, RDW Std Deviation 42.2, RDW Coeff of King 12.9, Plt Count 241, MPV 11.3, Immature Gran % (Auto) 0.600, Neut % (Auto) 74.4 H, Lymph % (Auto) 18.2 L, Miller % (Auto) 6.4, Eos % (Auto) 0.2, Baso % (Auto) 0.2, Absolute Neuts (auto) 11.4 H, Absolute Lymphs (auto) 2.80, Nucleated RBC % 0, Sodium 134 L, Potassium 4.0, Chloride 100, Carbon Dioxide 29.0, Anion Gap 5, BUN 32 H, Creatinine 1.42 H, Estim Creat Clear Calc 61.92, Est GFR (MDRD) Af Amer 62, Est GFR (MDRD) Non-Af 51 L, BUN/Creatinine Ratio 22.5 H, Glucose 289 H, Calcium 9.2, Total Bilirubin 0.60, AST 26, ALT 35, Alkaline Phosphatase 121 H, Total Protein 6.1 L, Albumin 2.6 L, Globulin 3.5, Albumin/Globulin Ratio 0.7 L, Vancomycin Trough 26.6 H 10/26/23 10:59: POC Glucose 285 H Microbiology: Microbiology 10/25/23 08:52 Tissue - Left Foot Gram Stain - Final 10/25/23 08:52 Tissue - Left Foot Wound Culture - Preliminary Gram positive organism 10/25/23 08:52 Tissue - Left Foot Gram Stain - Final 10/25/23 08:52 Tissue - Left Foot Wound Culture - Preliminary Gram positive organism 10/20/23 14:12 Blood Culture (Wb) - Anticubital Right Blood Culture - Final No growth in 5 days. 10/20/23 17:30 Urine, Clean Catch Urine Culture - Final Culture exhibits no growth. 10/20/23 17:30 Wound - Left Foot Gram Stain - Final 10/20/23 17:30 Wound - Left Foot Wound Culture - Final Pseudomonas aeruginosa Meth. resistant Staph. aureus Meaningful Use Info Meaningful Use Meaningful Use Diagnoses (Choose all that apply): None applicable Ischemic Stroke Statin Dosing Therapy Reference: STATIN DOSE THERAPY REFERENCE: * Patients > 75 years receive moderate or high dose statin therapy. * Patients 75 years or YOUNGER should receive HIGH intensity statin dose unless contraindicated. You will be required to document reason for non-treatment if statin daily dose does not meet guidelines. HIGH DOSE STATIN THERAPY DAILY Atorvastatin > than or = to 40 mg Rosuvastatin > than or = to 20 mg Amlodipine + Atorvastatin > than or = to 2.5/40 mg Ezetimibe + Simvastatin 10/80 mg Simvastatin 80mg Discharge Plan Admission Admit Date/Time: 10/20/23 15:29 Primary Reason for Your Visit: Diabetic foot infection (PsA/MRSA) Attending Provider: Marva Curtis Primary Care Provider: Angelia Conway Consulting Providers: Cherelle Tesfaye; William Fernandez; Alfred Jensen; Olaf Spann Instructions Patient Instructions: Diabetes Foot Infections Tx Additional Instructions / Restrictions: ADDITIONAL INFORMATION/FOLLOW-UP CARE: Acute LLE Diabetic Pseudomonas aeruginosa/MRSA infected wound/ulcer/cellulitis: --Plain film of the left foot with osteopenia and osteoarthritic changes and diffuse soft tissue swelling. --MRI 09/24/2023 with deep subcutaneous phlegmon pocket deep into the superficial skin ulcer on the medial and posterior aspect of the calcaneus without any evidence of osteomyelitis at that time. --10/24/23 OR 10/25/[address] Spann with incision and drainage left lower extremity with removal of necrotic tissue secondary to full-thickness ulceration of the medial left head. --Wound Cultures w/ Pseudomonas and MRSA treated with IV vancomycin and IV Zosyn with PICC line placed and plan continue 4-week course of antibiotic therapy per ID direction with weekly labs per ID direction with planned stop date 11/22/2023 and follow-up with ID in 3 weeks. --Will plan to follow-up with Dr. Spann pole incisor operator at the wound care center in [place] on 11/02/2023. --General care of left lower extremity: Nonweightbearing to left lower extremity, elevation with lower extremity supported above heart to assist with swelling, may leave current dressing from OR intact until follow-up with Dr. Spann per his direct instruction. --Given wound and infection your insulin was changed to twice daily insulin glargine with overlapping insulin sliding scale which will be continued upon discharge. Discharge Orders/Prescriptions Prescriptions: New piperacillin-tazobactam 3.375 gram recon soln 3.375 g IV Q8H 26 Days Rx Instructions: stop date 11/22/23. Dx: pseudomonas infection weekly bmp, cbc, vanc trough, and esr. Fax to [phone]. routine picc care per protocol. vancomycin 1.25 gram recon soln 1.25 g IV Q24H 26 Days Rx Instructions: stop date 11/22/23. Dx: MRSA infection weekly bmp, cbc, vanc trough, and esr. Fax to [phone]. routine picc care per protocol. furosemide [Lasix] 40 mg tablet 40 mg PO DAILY Qty: 30 0RF oxycodone 5 mg Tablet 10 mg PO Q4H PRN PRN (Reason: Pain Score 4-10) 3 Days Qty: 40 0RF insulin lispro [Humalog KwikPen Insulin] 100 unit/mL Insulin Pen See Protocol subcut TIDAC Qty: 0 0RF Protocol: 3. Sliding Scale Insulin Med Dosing Condition: 150-189 mg/dl = 1 unit Condition: 190-229 mg/dl = 2 units Condition: 230-269 mg/dl = 3 units Condition: 270-309 mg/dl = 4 units Condition: 310-349 mg/dl = 5 units Condition: 350-399 mg/dl = 6 units Condition: 400-449 mg/dl = 7 units Condition: Greater than 449 call physician Protocol Text: Suggested for: - Patients on Total Daily Insulin Dose of 37-55 units - Obese, infected, or steroid patients MEDIUM DOSING ALGORITHIM insulin glargine-yfgn 100 unit/mL (3 mL) Insulin Pen 30 unit subcut BID Qty: 0 0RF Continued finasteride 5 mg tablet 1 tab PO DAILY cholecalciferol (vitamin D3) 125 mcg (5,000 unit) capsule 125 mcg PO DAILY Eliquis 5 mg tablet 5 mg PO BID levothyroxine 25 mcg tablet PO Centrum Silver 0.4 mg-300 mcg- 250 mcg tablet 1 tab PO DAILY enalapril maleate 10 mg tablet 10 mg PO BID Patient Comments: BLOOD PRESSURE omeprazole 40 MG capsule 40 mg PO DAILY Patient Comments: ACID REFLUX gabapentin 800 MG tablet 800 mg PO 4XD Patient Comments: NERVE PAIN atorvastatin 80 MG tablet 80 mg PO QHS Patient Comments: CHOLESTEROL amlodipine 5 mg tablet 5 mg PO DAILY ondansetron 4 mg tablet,disintegrating 4 mg PO Q12H PRN (Reason: nausea and vomiting) Patient Comments: POST CHOLEYCYSTECTOMY SX vitamin E 800 unit capsule 800 unit PO DAILY cetirizine [24Hour Allergy] 10 mg tablet 10 mg PO BID PRN (Reason: allergy symptoms) Discontinued hydrocodone-acetaminophen 10-325 mg tablet 1 tab PO 4X/DAY furosemide 40 mg tablet 40 - 80 mg PO DAILY PRN (Reason: edema) Patient Comments: WATER PILL insulin aspart U-100 [Novolog FlexPen U-100 Insulin] 100 unit/mL (3 mL) insulin pen 30 unit subcut TID doxycycline hyclate 100 mg capsule 100 mg PO BID 14 Days Qty: 28 0RF Referrals / Follow Up: Olaf Spann DPM [Med Staff - Active Staff] - (Follow-up on 11/02/23 at [facility] with Dr. Spann.) Angelia Conway DO [Primary Care Provider] - (Follow-up within 1-2 weeks of SNF transition to review recent admission.) Alfred Jensen MD [Med Staff - Active Staff] - (Follow-up in 3 weeks. Send weekly labs as already ordered per ID.) Disposition Disposition (needs filled in before D/C Order can be placed): [facility] Charges/Coding Visit Charges Inpatient E&M: 73451 Disch Hosp >30min
--- NOTE | 2023-10-26 16:16 | CASEMGMT ---
Social Work Precert has been obtained.? Physician updated and pt is ready for discharge today.? 7000 convalescent form completed in HENS. SW met with pt and they are agreeable to discharge plan as stated above.? DCA and bedside nurse notified of discharge. Disposition:?[facility], skilled level of care under convalescent stay. TIKA Choi
--- NOTE | 2023-10-26 16:42 | CASEMGMT ---
Discharge Planning Discharge orders, signed med list, and [facility] Physicians will transport patient by cot at 6p. Nursing, SW, and patient updated. VM left for patient . Keisha Hutchinson DC Planning Asst.
[2023-10-26 17:01] LABS: Bedside Glucose 238 mg/dL (74-106)
== END 2023-10-26 19:15 | disposition skilled nursing facility (03) | DRG 623 ==
LOC: ED 14:47 → MS3 15:55
PROVIDERS: Internal Medicine; Internal Medicine Infectious Disease; Podiatrist Foot & Ankle Surgery; Admitting Provider Internal Medicine; Emergency Provider Emergency Medicine; PCP Internal Medicine; Visit Provider Family Medicine
PROC: 0JBR0ZZ Excision of Left Foot Subcutaneous Tissue and Fascia, Open Approach (ICD-10-PCS; principal; 2023-10-25 07:20)
DX: E11.628 Type 2 diabetes mellitus with other skin complications (principal); L03.116 Cellulitis of left lower limb; N13.8 Other obstructive and reflux uropathy; L03.811 Cellulitis of head [any part, except face]; E11.22 Type 2 diabetes mellitus with diabetic chronic kidney disease; B95.62 Methicillin resistant Staphylococcus aureus infection as the cause of diseases classified elsewhere; B96.5 Pseudomonas (aeruginosa) (mallei) (pseudomallei) as the cause of diseases classified elsewhere; E11.621 Type 2 diabetes mellitus with foot ulcer; E11.42 Type 2 diabetes mellitus with diabetic polyneuropathy; N18.31 Chronic kidney disease, stage 3a; E66.01 Morbid (severe) obesity due to excess calories; D50.9 Iron deficiency anemia, unspecified; I12.9 Hypertensive chronic kidney disease with stage 1 through stage 4 chronic kidney disease, or unspecified chronic kidney disease; E03.9 Hypothyroidism, unspecified; I48.0 Paroxysmal atrial fibrillation; L97.522 Non-pressure chronic ulcer of other part of left foot with fat layer exposed; I87.8 Other specified disorders of veins; Z79.4 Long term (current) use of insulin; E11.51 Type 2 diabetes mellitus with diabetic peripheral angiopathy without gangrene; E78.5 Hyperlipidemia, unspecified; I89.0 Lymphedema, not elsewhere classified; H35.52 Pigmentary retinal dystrophy; K21.9 Gastro-esophageal reflux disease without esophagitis; I87.2 Venous insufficiency (chronic) (peripheral); E11.59 Type 2 diabetes mellitus with other circulatory complications; E87.6 Hypokalemia; I49.3 Ventricular premature depolarization; G89.29 Other chronic pain; Z79.01 Long term (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 of anticoagulants; Z80.1 Family history of malignant neoplasm of trachea, bronchus and lung; Z82.3 Family history of stroke; Z87.891 Personal history of nicotine dependence; Z66 Do not resuscitate; H54.8 Legal blindness, as defined in USA; N40.1 Benign prostatic hyperplasia with lower urinary tract symptoms
CPT/HCPCS: 36415; 36569; 73630; 80048; 80053; 80202; 81001; 82962; 83036; 83605; 83735; 84100; 84439; 84443; 85025; 85610; 85652; 85730; 86140; 87015; 87040; 87070; 87075; 87077; 87086; 87102; 87116; 87176; 87186; 87205; 87206; 87640; 93005; 94668; 97110; 97162; 97164; 97166; 97530; 97535; 97803; 99214; 99252; 99285; J2185; J7030; J7040; J7050; J7120; A4216; G0463; J2405

== ENCOUNTER 2023-11-30 14:15 | Outpatient (RCR) | payer MEDICARE, OTHER, SELFPAY ==
[2023-11-06 00:43] VITALS: BP 146/75; PULSE 63; RESP 18; TEMP 35.9
[2023-11-09 14:43] VITALS: BP 137/61; PULSE 77; RESP 18; TEMP 36.8
--- NOTE | 2023-11-09 15:00 | PCM.WC.PN ---
History of Present Illness Date of Service: 11/09/23 Chief Complaint: Right foot ulcer History of Wound: This 76-year-old male with significant PMHx of diabetes type II with peripheral polyneuropathy, atrial fibrillation, hyperlipidemia, HTN, blindness, insomnia, history of acute renal failure, retinitis pigmentosa, Kaposi sarcoma right foot, and history of venous insufficiency with multiple procedural interventions was seen for right and left foot ulcer. Last seen by Dr. Moore, vascular specialist in 2020. Patient has not gone back for continued evaluation. Does have confirmed venous insufficiency of the great saphenous vein bilateral with bilateral lower extremity edema and lymphedema. He denies N/V/F/chills. He denies redness or odor to the foot bilateral. He is with his today. states that he had been following with Dr. Natalia Hernandez, [place].P.MIvan in office following dispense of Sigvaris compression wrap and bilateral AFO braces made by [employer]. states that these braces have caused rubbing on the inside of the heel of both feet that had formed a blister and eventually broke open into a wound. States that they have not healed in the last month and Dr. Hernandez referred them to the wound care center for further evaluation. Subjective Subjective Mr. Renae is a 77-year-old diabetic male presenting to the wound care center today for follow-up evaluation status post incision and drainage, application of antibiotic beads and delayed primary closure to the left medial heel. Patient has been residing in a SNF with every other day dressing changes as well as getting his IV antibiotics per infectious disease recommendation. Patient states he got blood work prior to his office appointment today. Patient states that he would like to go home soon as possible and understands why he needs to be in the SNF for continued care. He denies any trauma. Denies constitutional symptoms. No other pedal complaints at this time. Objective Data Objective Data Vital Signs: Vital Signs Temp Pulse Resp BP O2 Del Method 98.3 F 77 18 137/61 H Room Air 11/09/23 14:43 11/09/23 14:43 11/09/23 14:43 11/09/23 14:43 11/09/23 14:43 Oxygen Delivery Method Room Air Physical Exam Narrative Vascular: DP and PT pulse are palpable. CFT is brisk. +1 pitting edema appreciated bilateral lower extremity. No erythema to the left lower extremity. Neurological: Light touch is intact. Protective station is absent. Dermatological: Full-thickness ulceration appreciated to the left medial heel measuring 1.8 x 2.5 x 0.1 cm. Wound base is 100% granular nature. No erythema, probe to bone or sign of infection. The incision is well coapted with suture. Excisional debridement down to and including subcutaneous tissue with a number 5 mm dermal curette to the left medial heel full-thickness ulceration without incident. Predebridement measurement was sanguinous crust. Postdebridement measurement is 1.8 x 2.5 x 0.1 cm. Musculoskeletal: No pain on palpation to the left medial heel. No pain with calf compression bilateral. Debridement Note Debridement Note Debridement Free Text: Excisional debridement down to and including subcutaneous tissue with a number 5 mm dermal curette to the left medial heel full-thickness ulceration without incident. Predebridement measurement was sanguinous crust. Postdebridement measurement is 1.8 x 2.5 x 0.1 cm. Post-Debridement Measurements and Additional Note: Post-Debridement Measurements/Treatment - Nurse 1 - General Ulcer Assessment Start: 11/09/23 14:40 Freq: Status: Active Protocol: [place].DUYEN Activity Type Activity Date Activity User E-sign Co-sign Detail Recorded Client Recorded Date Recorded By Document 11/09/23 14:43 [facility] [id number] 11/09/23 14:45 [facility] 11/09/23 14:43 - Today's Visit Information Type of service Follow-up Visit (Physician/REFRIGERATOR CAR ICER ) Arrival Mode Wheelchair Accompanied by Patient Identification Verified (Name & Yes ) Vital Signs Temperature (97.8 F-99.1 F) 98.3 F Temperature Source Temporal Pulse Rate (60-100) 77 Pulse Location Monitor Respiratory Rate (12-18) 18 Respiratory rate source Observation Oxygen Delivery Method Room Air Blood Pressure (90/60-120/80) 137/61 H Blood Pressure Mean (mm Hg) 86 Source Monitor Position Semi-Fowlers Blood Pressure Location Left Arm History Since Last Visit- (Skip if this is Patient's initial visit) Have you changed medications since your No last visit? Any new allergies or adverse reactions No Had a fall/change in ADL's that may No increase risk of falls Signs or symptoms of abuse and/or No neglect since last visit Have you been in the hospital since your Yes last visit? Has dressing in place as prescribed Yes Has compression in place as prescribed Yes Has offloadiing in place as prescribed Yes Experienced any changes in pain level or No management Left Footwear Regular Shoe Right Footwear Regular Shoe Pain Scale: 0-10 Numeric Is Patient Pain Free? Yes - Nurse 1 - General Ulcer Measurement Start: 11/09/23 14:40 Freq: Status: Active Protocol: Activity Type Activity Date Activity User E-sign Co-sign Detail Recorded Client Recorded Date Recorded By Document 11/09/23 14:43 [facility] [id number] 11/09/23 14:45 [facility] 11/09/23 14:43 Wound Center Nurse 1 #4- L MED HEEL post op -Current Size (cm) - Length 0.1 -Current Size (cm) - Width 0.1 -Current Size (cm) - Depth 0.1 -Total Square Cm 0.01 -Exudate Amt Small -Exudate Type Serosanguineous -Wound Margin Distinct, Outline Attached -Granulation Amt Small (1-33%) -Granulation Quality [place] -Necrosis Amt Large (67-100%) -Necrotic Tissue Type Adherent Slough -Texture (Hannah-wound Skin Appearance) Assessed -Moisture (Hannah-wound Skin Appearance) Assessed,Dry/ Scaly -Color (Hannah-wound Skin Appearance) Assessed -Temperature (Hannah-wound Skin No Abnormality Appearance) (Pt Warm) -Tenderness on Palpation (Hannah-wound No Skin Appearance) -Ulcer Cleansing Soap and Water -Foul Odor after Cleansing No -Anesthetic Used 5% Lidocaine Gel Left Calf (cm) 44.6 Left Ankle (cm) 29.3 - Nurse 2 - General Ulcer CM Notes Start: 11/09/23 14:40 Freq: Status: Active Protocol: Activity Type Activity Date Activity User E-sign Co-sign Detail Recorded Client Recorded Date Recorded By Document 11/09/23 14:49 [id number] 11/09/23 14:55 11/09/23 14:49 Wound Center Nurse 2 #4- L MED HEEL post op -Time 14:50 -Correct Patient Yes -Correct Side, Site, Position Yes -Correct Procedure Yes -Procedure Performed Yes -Type of Procedure Debridement -Clinical Debridement Subcutaneous -Tissue Removed Subcutaneous -Post Debridement (cm) - Length 1.8 -Post Debridement (cm) - Width 2.5 -Post Debridement (cm) - Depth 0.1 -Total Square (Post) (cm) 4.50 -Area of Debridement (cm) - Length 1.8 -Area of Debridement (cm) - Width 2.5 -Total Square (Area) (cm) 4.50 -Tunneling No -Undermining/Tunneling No -Circular Undermining No -Wound/Ulcer Outcome Not Healed -Ulcer Cleansing Rinsed/ Irrigated with Saline -Foul Odor after Cleansing No -Bioengineered Tissue No -Bleeding Controlled with Pressure -Treatment Response Procedure Tolerated Well -Offloading No -Debridement - Subq, 1st 20sq cm Yes Pain Scale: 0-10 Numeric Is Patient Pain Free? Yes Assessment/Plan Assessment/Plan (1) Non-pressure chronic ulcer of other part of left foot with fat layer exposed: CODE(S): L97.522 - Non-pressure chronic ulcer of other part of left foot with fat layer exposed PLAN: Patient was examined and evaluated. All findings were discussed with the patient. All questions were answered to the patient's satisfaction. Excisional debridement down to and including subcutaneous tissue with a number 5 mm dermal curette to the left medial heel full-thickness ulceration without incident. Predebridement measurement was sanguinous crust. Postdebridement measurement is 1.8 x 2.5 x 0.1 cm. Left lower extremities were cleaned and patted dry. The full-thickness wound was dressed with moist Catherine followed by Betadine soaked gauze dry sterile dressing and Kd wrap's to the bilateral lower extremity. Dressing changes will be given to the patient to have every other day dressing changes done by the SNF nursing staff. Will continue IV antibiotics as prescribed by infectious disease. Review of the patient's blood work show evidence of mild leukocytosis with evidence of hyperglycemia. Educated the patient to educate the nursing staff about his high blood sugar and make sure that they are checking his blood sugars daily to ensure optimum healing. Follow-up at the wound care center with Dr. Spann in 2 week. (2) Peripheral vascular disease: CODE(S): I73.9 - Peripheral vascular disease, unspecified
--- NOTE | 2023-11-11 09:06 | WC ---
PHOTO 11/09/23 LT HEEL POST OP
[2023-11-23 14:08] VITALS: BP 163/82; PULSE 80; RESP 16; TEMP 36.7
--- NOTE | 2023-11-23 15:39 | PN.PCM_ITS ---
History of Present Illness Date of Service: 11/23/23 Chief Complaint: Right foot ulcer History of Wound: This 76-year-old male with significant PMHx of diabetes type II with peripheral polyneuropathy, atrial fibrillation, hyperlipidemia, HTN, blindness, insomnia, history of acute renal failure, retinitis pigmentosa, Kaposi sarcoma right foot, and history of venous insufficiency with multiple procedural interventions was seen for right and left foot ulcer. Last seen by Dr. Moore, vascular specialist in 2020. Patient has not gone back for continued evaluation. Does have confirmed venous insufficiency of the great saphenous vein bilateral with bilateral lower extremity edema and lymphedema. He denies N/V/F/chills. He denies redness or odor to the foot bilateral. He is with his today. states that he had been following with Dr. Natalia Hernandez, [facility].P.Aura in office following dispense of Sigvaris compression wrap and bilateral AFO braces made by [employer]. states that these braces have caused rubbing on the inside of the heel of both feet that had formed a blister and eventually broke open into a wound. States that they have not healed in the last month and Dr. Hernandez referred them to the wound care center for further evaluation. Subjective Subjective Mr. Renae is a 77-year-old diabetic male presenting with concern today follow- up evaluation of full-thickness wound to the medial aspect of the left heel. He has been compliant with dressing changes. He has been nonweightbearing and using a walker. He states that he is having trouble getting the nursing staff at the facility to wrap his legs correctly. He admits to swelling. Denies pain. Denies trauma. Denies constitutional symptoms. Other pedal plaints at this time. Objective Data Objective Data Vital Signs: Vital Signs Temp Pulse Resp BP O2 Del Method 98.1 F 80 16 163/82 H Room Air 11/23/23 14:08 11/23/23 14:08 11/23/23 14:08 11/23/23 14:08 11/23/23 14:08 Oxygen Delivery Method Room Air Physical Exam Narrative Vascular: DP and PT pulse are palpable. CFT is brisk. +1 pitting edema appreciated bilateral lower extremity. No erythema to the left lower extremity. Neurological: Light touch is intact. Protective station is absent. Dermatological: Full-thickness ulceration appreciated to the left medial heel measuring 2.3 x 3.1 x 0.1 cm. Wound base is 100% granular nature. No erythema, probe to bone or sign of infection. The incision is well coapted with suture. Excisional debridement down to and including subcutaneous tissue with a number 5 mm dermal curette to the left medial heel full-thickness ulceration without incident. Predebridement measurement was sanguinous crust. Postdebridement measurement is 2.3 x 3.1 x 0.1 cm. Musculoskeletal: No pain on palpation to the left medial heel. No pain with calf compression bilateral. Debridement Note Debridement Note Debridement Free Text: Excisional debridement down to and including subcutaneous tissue with a number 5 mm dermal curette to the left medial heel full-thickness ulceration without incident. Predebridement measurement was sanguinous crust. Postdebridement measurement is 2.3 x 3.1 x 0.1 cm. Post-Debridement Measurements and Additional Note: Post-Debridement Measurements/Treatment - Nurse 1 - General Ulcer Assessment Start: 11/09/23 14:40 Freq: Status: Active Protocol: [place]YEN Activity Type Activity Date Activity User E-sign Co-sign Detail Recorded Client Recorded Date Recorded By Document 11/09/23 14:[address] [facility] [id number] 11/09/23 14:[address] [facility] Document 11/23/23 14:[address] [facility] [id number] 11/23/23 14:[address] [facility] 11/09/23 11/23/23 14:43 14:08 - Today's Visit Information Type of service Follow-up Visit Follow-up Visit (Physician/MEDICAL SECRETARY TEACHER (Physician/MEDICAL SECRETARY TEACHER ) ) Arrival Mode Wheelchair Wheelchair Transfer Assistance Other Transfer Assist (Other) 1 Accompanied by Patient Identification Verified (Name & Yes Yes ) Patient Requires Transmission-Based No Precautions Vital Signs Temperature (97.8 F-99.1 F) 98.3 F 98.1 F Temperature Source Temporal Temporal Pulse Rate (60-100) 77 80 Pulse Location Monitor Monitor Respiratory Rate (12-18) 18 16 Respiratory rate source Observation Observation Oxygen Delivery Method Room Air Room Air Blood Pressure (90/60-120/80) 137/61 H 163/82 H Blood Pressure Mean (mm Hg) 86 109 Source Monitor Monitor Position Semi-Fowlers Sitting Blood Pressure Location Left Arm Left Forearm History Since Last Visit- (Skip if this is Patient's initial visit) Have you changed medications since your No No last visit? Any new allergies or adverse reactions No No Had a fall/change in ADL's that may No No increase risk of falls Signs or symptoms of abuse and/or No No neglect since last visit Have you been in the hospital since your Yes No last visit? Has dressing in place as prescribed Yes Yes Has compression in place as prescribed Yes N/A Has offloadiing in place as prescribed Yes No Experienced any changes in pain level or No No management Left Footwear Regular Shoe Diabetic Shoe Right Footwear Regular Shoe Diabetic Shoe Pain Scale: 0-10 Numeric Is Patient Pain Free? Yes Yes WC - Nurse 1 - General Ulcer Measurement Start: 11/09/23 14:40 Freq: Status: Active Protocol: Activity Type Activity Date Activity User E-sign Co-sign Detail Recorded Client Recorded Date Recorded By Document 11/09/23 14:[address] [facility] [id number] 11/09/23 14:[address] [facility] Document 11/23/23 14:[address] [facility] [id number] 11/23/23 14:17 BM 11/09/23 11/23/23 14:43 14:08 Wound Center Nurse 1 #4- L MED HEEL post op -Combined with other wound No -Current Size (cm) - Length 0.1 1.6 -Current Size (cm) - Width 0.1 1 -Current Size (cm) - Depth 0.1 0.1 -Total Square Cm 0.01 1.6 -Date of Last Picture (Recall this 11/23/23 field) -Photo Taken Yes -Epithelialization Small 1-33% -Tunneling No -Undermining/Tunneling No -Circular Undermining No -Exudate Amt Small Medium -Exudate Type Serosanguineous Serosanguineous -Wound Margin Distinct, Flat & Intact Outline Attached -Granulation Amt Small (1-33%) Medium (34-66%) -Granulation Quality [place] Red -Slough/Fibrin Yes -Necrosis Amt Large (67-100%) Medium (34-66%) -Necrotic Tissue Type Adherent Slough Adherent Slough -Texture (Hannah-wound Skin Appearance) Assessed Assessed,Callus -Moisture (Hannah-wound Skin Appearance) Assessed,Dry/ Assessed,Dry/ Scaly Scaly -Color (Hannah-wound Skin Appearance) Assessed Assessed -Temperature (Hannah-wound Skin No Abnormality No Abnormality Appearance) (Pt Warm) (Pt Warm) -Tenderness on Palpation (Hannah-wound No No Skin Appearance) -Ulcer Cleansing Soap and Water Soap and Water -Foul Odor after Cleansing No No -Anesthetic Used 5% Lidocaine 4% Lidocaine Gel Solution Lower Limb Edema Present Yes Left Calf (cm) 44.6 48.3 Left Ankle (cm) 29.3 31.7 - Nurse 2 - General Ulcer CM Notes Start: 11/09/23 14:40 Freq: Status: Active Protocol: Activity Type Activity Date Activity User E-sign Co-sign Detail Recorded Client Recorded Date Recorded By Document 11/09/23 14:49 [id number] 11/09/23 14:55 Document 11/23/23 14:31 [id number] 11/23/23 14:35 11/09/23 11/23/23 14:49 14:31 Wound Center Nurse 2 #4- L MED HEEL post op -Time 14:50 14:31 -Correct Patient Yes Yes -Correct Side, Site, Position Yes Yes -Correct Procedure Yes Yes -Procedure Performed Yes Yes -Type of Procedure Debridement Debridement -Clinical Debridement Subcutaneous Subcutaneous -Tissue Removed Subcutaneous Subcutaneous -Post Debridement (cm) - Length 1.8 2.3 -Post Debridement (cm) - Width 2.5 3.1 -Post Debridement (cm) - Depth 0.1 0.1 -Total Square (Post) (cm) 4.50 7.13 -Area of Debridement (cm) - Length 1.8 2.3 -Area of Debridement (cm) - Width 2.5 3.1 -Total Square (Area) (cm) 4.50 7.13 -Tunneling No No -Undermining/Tunneling No No -Circular Undermining No No -Wound/Ulcer Outcome Not Healed Not Healed -Ulcer Cleansing Rinsed/ Rinsed/ Irrigated with Irrigated with Saline Saline -Foul Odor after Cleansing No No -Bioengineered Tissue No No -Bleeding Controlled with Pressure Pressure -Treatment Response Procedure Procedure Tolerated Well Tolerated Well -Offloading No No -Assistive Device(s) Wheelchair -Debridement - Subq, 1st 20sq cm Yes Yes Pain Scale: 0-10 Numeric Is Patient Pain Free? Yes Yes - Nurse 3 - General Ulcer D/C NN Start: 11/09/23 14:40 Freq: Status: Active Protocol: Activity Type Activity Date Activity User E-sign Co-sign Detail Recorded Client Recorded Date Recorded By Document 11/09/23 15:30 KW [id number] 11/09/23 15:30 KW Document 11/23/23 15:[address] [facility] [id number] 11/23/23 15:[address] [facility] 11/09/23 11/23/23 15:30 15:14 Wound Care Center Nurse 3 #4- L MED HEEL post op -Ulcer Cleansing Rinsed/ Irrigated with Saline -Foul Odor after Cleansing No -Primary Dressing Applied Promogran Catherine Matter -Other Dressing betadine soaked DAKINS MOIST gauze GAUZE -Primary Dressing Covered/Secured with Dry Gauze & Dry Gauze & Roll Gauze, Roll Gauze, Secured with Secured with Tape Tape -Other Covering KERLIX -Promogran Catherine Matter 1 BLE -Compression Wrap Kd Wrap Right -Compression Wrap Kd Wrap Left -Compression Wrap Kd Wrap Treatment Response Procedure Tolerated Well Pain Scale: 0-10 Numeric Is Patient Pain Free? Yes Yes WC - Visit Discharge Discharge Condition Stable Stable Ambulatory Status Wheelchair Wheelchair Transportation Private Auto Accompanied by Medication Reconcilliation completed & No provided to patient/care provider Clinical Summary of Care Provided Yes Facility Type [facility] Care Facility Assessment/Plan Assessment/Plan (1) Non-pressure chronic ulcer of other part of left foot with fat layer expo sed: CODE(S): L97.522 - Non-pressure chronic ulcer of other part of left foot with fat layer exposed PLAN: Patient was examined and evaluated. All findings were discussed with the patient. All questions were answered to the patient's satisfaction. Suture removed from the left lower extremity incision without incident. No evidence of surgical wound dehiscence. Excisional debridement down to and including subcutaneous tissue with a number 5 mm dermal curette to the left medial heel full-thickness ulceration without incident. Predebridement measurement was sanguinous crust. Postdebridement measurement is 2.3 x 3.1 x 0.1 cm. Area was wiped clean and patted dry. The area was dressed with Dakin's solution soaked gauze dry sterile dressing and compression wrap to the bilateral lower extremity. Follow-up at the wound care center with Dr. Spann in 1 week. (2) Peripheral vascular disease: CODE(S): I73.9 - Peripheral vascular disease, unspecified
--- NOTE | 2023-11-24 08:36 | WC ---
PHOTO 11/23/23 LEFT [facility]
[2023-11-30 14:34] VITALS: BP 148/77; PULSE 78; RESP 18; TEMP 35.9
--- NOTE | 2023-11-30 15:20 | PCM.WC.PN ---
History of Present Illness Date of Service: 11/30/23 Chief Complaint: Right foot ulcer History of Wound: This 76-year-old male with significant PMHx of diabetes type II with peripheral polyneuropathy, atrial fibrillation, hyperlipidemia, HTN, blindness, insomnia, history of acute renal failure, retinitis pigmentosa, Kaposi sarcoma right foot, and history of venous insufficiency with multiple procedural interventions was seen for right and left foot ulcer. Last seen by Dr. Moore, vascular specialist in 2020. Patient has not gone back for continued evaluation. Does have confirmed venous insufficiency of the great saphenous vein bilateral with bilateral lower extremity edema and lymphedema. He denies N/V/F/chills. He denies redness or odor to the foot bilateral. He is with his today. states that he had been following with Ned AbbasiP.Aura in office following dispense of Sigvaris compression wrap and bilateral AFO braces made by [employer]. states that these braces have caused rubbing on the inside of the heel of both feet that had formed a blister and eventually broke open into a wound. States that they have not healed in the last month and Dr. Hernandez referred them to the wound care center for further evaluation. Subjective Subjective Mr. Renae is a 77-year-old diabetic male presented wound care center today follow-up evaluation of full-thickness wound to the medial aspect of left foot. Patient has returned home after being discharged from the SNF and completing his IV antibiotics via PICC line for 6 weeks through infectious disease. Home health care has been by for dressing changes wound is improved. He denies any new wounds at this time. Blood sugar under control. Compliant with dressings. Denies trauma. Denies constitutional symptoms. No other pedal complaints at this time. Objective Data Objective Data Vital Signs: Vital Signs Temp Pulse Resp BP O2 Del Method 96.7 F L 78 18 148/77 H Room Air 11/30/23 14:34 11/30/23 14:34 11/30/23 14:34 11/30/23 14:34 11/30/23 14:34 Oxygen Delivery Method Room Air Physical Exam Narrative Vascular: DP and PT pulse are palpable. CFT is brisk. +1 pitting edema appreciated bilateral lower extremity. No erythema to the left lower extremity. Neurological: Light touch is intact. Protective station is absent. Dermatological: Full-thickness ulceration appreciated to the left medial heel measuring 2.1 x 2.8 x 0.1 cm. Wound base is 100% granular nature. No erythema, probe to bone or sign of infection. Excisional debridement down to and including subcutaneous tissue with a number 5 mm dermal curette to the left medial heel full-thickness ulceration without incident. Predebridement measurement was 1.9 x 2.6 x 0.1 cm. Postdebridement measurement is 2.1 x 2.8 x 0.1 cm. Musculoskeletal: No pain on palpation to the left medial heel. No pain with calf compression bilateral. Debridement Note Debridement Note Debridement Free Text: Excisional debridement down to and including subcutaneous tissue with a number 5 mm dermal curette to the left medial heel full-thickness ulceration without incident. Predebridement measurement was 1.9 x 2.6 x 0.1 cm. Postdebridement measurement is 2.1 x 2.8 x 0.1 cm. Post-Debridement Measurements and Additional Note: Post-Debridement Measurements/Treatment - Nurse 1 - General Ulcer Assessment Start: 11/09/23 14:40 Freq: Status: Active Protocol: [place] Activity Type Activity Date Activity User E-sign Co-sign Detail Recorded Client Recorded Date Recorded By Document 11/09/23 14:43 [facility] [id number] 11/09/23 14:45 [facility] Document 11/23/23 14:08 [facility] [id number] 11/23/23 14:17 [facility] Document 11/30/23 14:34 [id number] 11/30/23 14:40 11/09/23 11/23/23 11/30/23 14:43 14:08 14:34 - Today's Visit Information Type of service Follow-up Visit Follow-up Visit Follow-up Visit (Physician/MARRIAGE AND FAMILY SOCIAL WORKER (Physician/MARRIAGE AND FAMILY SOCIAL WORKER (Physician/MARRIAGE AND FAMILY SOCIAL WORKER ) ) ) Arrival Mode Wheelchair Wheelchair Wheelchair Transfer Assistance Other Transfer Assist (Other) 1 Accompanied by Patient Identification Verified (Name & Yes Yes Yes ) Patient Requires Transmission-Based No Precautions Vital Signs Temperature (97.8 F-99.1 F) 98.3 F 98.1 F 96.7 F L Temperature Source Temporal Temporal Temporal Pulse Rate (60-100) 77 80 78 Pulse Location Monitor Monitor Monitor Respiratory Rate (12-18) 18 16 18 Respiratory rate source Observation Observation Observation Oxygen Delivery Method Room Air Room Air Room Air Blood Pressure (90/60-120/80) 137/61 H 163/82 H 148/77 H Blood Pressure Mean (mm Hg) 86 109 100 Source Monitor Monitor Monitor Position Semi-Fowlers Sitting Semi-Fowlers Blood Pressure Location Left Arm Left Forearm Left Arm History Since Last Visit- (Skip if this is Patient's initial visit) Have you changed medications since your No No No last visit? Any new allergies or adverse reactions No No No Had a fall/change in ADL's that may No No No increase risk of falls Signs or symptoms of abuse and/or No No No neglect since last visit Have you been in the hospital since your Yes No No last visit? Has dressing in place as prescribed Yes Yes Yes Has compression in place as prescribed Yes N/A Yes Has offloadiing in place as prescribed Yes No N/A Experienced any changes in pain level or No No No management Left Footwear Regular Shoe Diabetic Shoe Regular Shoe Right Footwear Regular Shoe Diabetic Shoe Regular Shoe Pain Scale: 0-10 Numeric Is Patient Pain Free? Yes Yes Yes WC - Nurse 1 - General Ulcer Measurement Start: 11/09/23 14:40 Freq: Status: Active Protocol: Activity Type Activity Date Activity User E-sign Co-sign Detail Recorded Client Recorded Date Recorded By Document 11/09/23 14:43 [facility] [id number] 11/09/23 14:45 [facility] Document 11/23/23 14:08 [facility] [id number] 11/23/23 14:17 [facility] Document 11/30/23 14:34 [id number] 11/30/23 14:40 11/09/23 11/23/23 11/30/23 14:43 14:08 14:34 Wound Center Nurse 1 #4- L MED HEEL post op -Combined with other wound No -Current Size (cm) - Length 0.1 1.6 2 -Current Size (cm) - Width 0.1 1 0.4 -Current Size (cm) - Depth 0.1 0.1 0.1 -Total Square Cm 0.01 1.6 0.8 -Date of Last Picture (Recall this 11/23/23 field) -Photo Taken Yes -Epithelialization Small 1-33% -Tunneling No -Undermining/Tunneling No -Circular Undermining No -Exudate Amt Small Medium Medium -Exudate Type Serosanguineous Serosanguineous Serosanguineous -Wound Margin Distinct, Flat & Intact Distinct, Outline Outline Attached Attached -Granulation Amt Small (1-33%) Medium (34-66%) Medium (34-66%) -Granulation Quality [place] Red Red -Slough/Fibrin Yes -Necrosis Amt Large (67-100%) Medium (34-66%) Small (1-33%) -Necrotic Tissue Type Adherent Slough Adherent Slough Adherent Slough -Texture (Hannah-wound Skin Appearance) Assessed Assessed,Callus Assessed -Moisture (Hannah-wound Skin Appearance) Assessed,Dry/ Assessed,Dry/ Assessed,Dry/ Scaly Scaly Scaly -Color (Hannah-wound Skin Appearance) Assessed Assessed Assessed -Temperature (Hannah-wound Skin No Abnormality No Abnormality No Abnormality Appearance) (Pt Warm) (Pt Warm) (Pt Warm) -Tenderness on Palpation (Hannah-wound No No No Skin Appearance) -Ulcer Cleansing Soap and Water Soap and Water Rinsed/ Irrigated with Saline -Foul Odor after Cleansing No No No -Anesthetic Used 5% Lidocaine 4% Lidocaine 5% Lidocaine Gel Solution Gel Lower Limb Edema Present Yes Left Calf (cm) 44.6 48.3 Left Ankle (cm) 29.3 31.7 WC - Nurse 2 - General Ulcer CM Notes Start: 11/09/23 14:40 Freq: Status: Active Protocol: Activity Type Activity Date Activity User E-sign Co-sign Detail Recorded Client Recorded Date Recorded By Document 11/09/23 14:49 [id number] 11/09/23 14:55 Document 11/23/23 14:31 [id number] 11/23/23 14:35 Document 11/30/23 15:02 [id number] 11/30/23 15:03 11/09/23 11/23/23 11/30/23 14:49 14:31 15:02 Wound Center Nurse 2 #4- L MED HEEL post op -Time 14:50 14:31 15:02 -Correct Patient Yes Yes Yes -Correct Side, Site, Position Yes Yes Yes -Correct Procedure Yes Yes Yes -Procedure Performed Yes Yes Yes -Type of Procedure Debridement Debridement Debridement -Clinical Debridement Subcutaneous Subcutaneous Subcutaneous -Tissue Removed Subcutaneous Subcutaneous Subcutaneous -Post Debridement (cm) - Length 1.8 2.3 2.1 -Post Debridement (cm) - Width 2.5 3.1 2.8 -Post Debridement (cm) - Depth 0.1 0.1 0.1 -Total Square (Post) (cm) 4.50 7.13 5.88 -Area of Debridement (cm) - Length 1.8 2.3 2.1 -Area of Debridement (cm) - Width 2.5 3.1 2.8 -Total Square (Area) (cm) 4.50 7.13 5.88 -Tunneling No No No -Undermining/Tunneling No No No -Circular Undermining No No No -Wound/Ulcer Outcome Not Healed Not Healed Not Healed -Ulcer Cleansing Rinsed/ Rinsed/ Rinsed/ Irrigated with Irrigated with Irrigated with Saline Saline Saline -Foul Odor after Cleansing No No No -Bioengineered Tissue No No No -Bleeding Controlled with Pressure Pressure Pressure -Treatment Response Procedure Procedure Procedure Tolerated Well Tolerated Well Tolerated Well -Offloading No No No -Assistive Device(s) Wheelchair -Debridement - Subq, 1st 20sq cm Yes Yes Yes Pain Scale: 0-10 Numeric Is Patient Pain Free? Yes Yes Yes WC - Nurse 3 - General Ulcer D/C NN Start: 11/09/23 14:40 Freq: Status: Active Protocol: Activity Type Activity Date Activity User E-sign Co-sign Detail Recorded Client Recorded Date Recorded By Document 11/09/23 15:30 KW [id number] 11/09/23 15:30 Document 11/23/23 15:14 [facility] [id number] 11/23/23 15:15 [facility] 11/09/23 11/23/23 15:30 15:14 Wound Care Center Nurse 3 #4- L MED HEEL post op -Ulcer Cleansing Rinsed/ Irrigated with Saline -Foul Odor after Cleansing No -Primary Dressing Applied Promogran Catherine Matter -Other Dressing betadine soaked DAKINS MOIST gauze GAUZE -Primary Dressing Covered/Secured with Dry Gauze & Dry Gauze & Roll Gauze, Roll Gauze, Secured with Secured with Tape Tape -Other Covering KERLIX -Promogran Catherine Matter 1 BLE -Compression Wrap Kd Wrap Right -Compression Wrap Kd Wrap Left -Compression Wrap Kd Wrap Treatment Response Procedure Tolerated Well Pain Scale: 0-10 Numeric Is Patient Pain Free? Yes Yes WC - Visit Discharge Discharge Condition Stable Stable Ambulatory Status Wheelchair Wheelchair Transportation Private Auto Accompanied by Medication Reconcilliation completed & No provided to patient/care provider Clinical Summary of Care Provided Yes Facility Type [facility] Assessment/Plan Assessment/Plan (1) Non-pressure chronic ulcer of other part of left foot with fat layer exposed: CODE(S): L97.522 - Non-pressure chronic ulcer of other part of left foot with fat layer exposed PLAN: Patient was examined and evaluated. All findings were discussed with the patient. All questions were answered to the patient's satisfaction. Excisional debridement down to and including subcutaneous tissue with a number 5 mm dermal curette to the left medial heel full-thickness ulceration without incident. Predebridement measurement was 1.9 x 2.6 x 0.1 cm. Postdebridement measurement is 2.1 x 2.8 x 0.1 cm.Area was wiped clean and patted dry. The area was dressed with Dakin's solution soaked gauze dry sterile dressing and compression wrap to the bilateral lower extremity. Dressing change orders and instructions were dispensed for home health care. Follow-up at the wound care center with Dr. Spann in 2 week. (2) Peripheral vascular disease: CODE(S): I73.9 - Peripheral vascular disease, unspecified
== END 2023-12-05 23:59 | disposition home or self-care (01) ==
LOC: WC 14:15
PROVIDERS: PCP Internal Medicine; Referring Provider Podiatrist Foot & Ankle Surgery; Visit Provider Podiatrist Foot & Ankle Surgery
DX: E11.621 Type 2 diabetes mellitus with foot ulcer (principal); L97.422 Non-pressure chronic ulcer of left heel and midfoot with fat layer exposed; I48.91 Unspecified atrial fibrillation; E11.42 Type 2 diabetes mellitus with diabetic polyneuropathy; Z79.4 Long term (current) use of insulin; I10 Essential (primary) hypertension; E78.5 Hyperlipidemia, unspecified; I87.2 Venous insufficiency (chronic) (peripheral); I89.0 Lymphedema, not elsewhere classified; R60.0 Localized edema; G47.00 Insomnia, unspecified; Z79.01 Long term (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 of anticoagulants; Z79.890 Hormone replacement therapy; Z79.899 Other long term (current) drug therapy
CPT/HCPCS: 11042

== ENCOUNTER 2024-01-04 12:45 | Outpatient (RCR) | payer MEDICARE, OTHER, SELFPAY ==
[2023-12-06 00:42] VITALS: BP 146/75; PULSE 63; RESP 18; TEMP 35.9
[2023-12-07 11:23] VITALS: BP 140/65; PULSE 63; RESP 20; TEMP 36.8
--- NOTE | 2023-12-07 21:59 | PN.PCM_ITS ---
History of Present Illness Date of Service: 12/07/23 Chief Complaint: Right foot ulcer History of Wound: This 76-year-old male with significant PMHx of diabetes type II with peripheral polyneuropathy, atrial fibrillation, hyperlipidemia, HTN, blindness, insomnia, history of acute renal failure, retinitis pigmentosa, Kaposi sarcoma right foot, and history of venous insufficiency with multiple procedural interventions was seen for right and left foot ulcer. Last seen by Dr. Moore, vascular specialist in 2020. Patient has not gone back for continued evaluation. Does have confirmed venous insufficiency of the great saphenous vein bilateral with bilateral lower extremity edema and lymphedema. He denies N/V/F/chills. He denies redness or odor to the foot bilateral. He is with his today. states that he had been following with Dr. Natalia Hernandez, [place]ura in office following dispense of Sigvaris compression wrap and bilateral AFO braces made by [employer]. states that these braces have caused rubbing on the inside of the heel of both feet that had formed a blister and eventually broke open into a wound. States that they have not healed in the last month and Dr. Hernandez referred them to the wound care center for further evaluation. Subjective Subjective Mr. Renae is a 77-year-old diabetic male presenting to the wound care center today with concerns of a blister to the medial aspect of the left foot. Patient is status post incision and drainage with delayed primary closure to the left. Patient was instructed to return to the wound care center today secondary to home health care. Patient is unsure how the blister came about. The patient's states that when she sees him standing his foot is turned in creating a a lot of pressure on the shoes she wears at home. Denies trauma. Denies constitu tional symptoms. No other pedal complaints at this time. Objective Data Objective Data Vital Signs: Vital Signs Temp Pulse Resp BP 98.3 F 63 20 H 140/65 H 12/07/23 11:23 12/07/23 11:23 12/07/23 11:23 12/07/23 11:23 Physical Exam Narrative Vascular: DP and PT pulse are palpable. CFT is brisk. +1 pitting edema appreciated bilateral lower extremity. No erythema to the left lower extremity. Neurological: Light touch is intact. Protective station is absent. Dermatological: Full-thickness ulceration appreciated to the left medial heel measuring 2.9 x 4.6 x 0.1 cm after removal of the blistered tissue. Wound base is 100% granular nature. No erythema, probe to bone or sign of infection. Excisional debridement down to and including subcutaneous tissue with a number 5 mm dermal curette to the left medial heel full-thickness ulceration without incident. Predebridement measurement was 1.7 x 2.5 x 0.1 cm. Postdebridement measurement is 2.9 x 4.6 x 0.1 cm. Musculoskeletal: No pain on palpation to the left medial heel. No pain with calf compression bilateral. Debridement Note Debridement Note Debridement Free Text: Excisional debridement down to and including subcutaneous tissue with a number 5 mm dermal curette to the left medial heel full-thickness ulceration without incident. Predebridement measurement was 1.7 x 2.5 x 0.1 cm. Postdebridement measurement is 2.9 x 4.6 x 0.1 cm. Post-Debridement Measurements and Additional Note: Post-Debridement Measurements/Treatment - Nurse 1 - General Ulcer Assessment Start: 12/07/23 11:18 Freq: Status: Active Protocol: [email or web address] Activity Type Activity Date Activity User E-sign Co-sign Detail Recorded Client Recorded Date Recorded By Document 12/07/23 11:23 DL [id number] 12/07/23 11:29 DL 12/07/23 11:23 - Today's Visit Information Type of service Follow-up Visit (Physician/SAS CLINICAL PROGRAMMER ) Arrival Mode Wheelchair Transfer Assistance Manual Patient Identification Verified (Name & Yes ) Patient Requires Transmission-Based No Precautions Vital Signs Temperature (97.8 F-99.1 F) 98.3 F Temperature Source Temporal Pulse Rate (60-100) 63 Pulse Location Monitor Respiratory Rate (12-18) 20 H Respiratory rate source Observation Blood Pressure (90/60-120/80) 140/65 H Blood Pressure Mean (mm Hg) 90 Source Monitor History Since Last Visit- (Skip if this is Patient's initial visit) Have you changed medications since your No last visit? Any new allergies or adverse reactions No Had a fall/change in ADL's that may No increase risk of falls Signs or symptoms of abuse and/or No neglect since last visit Have you been in the hospital since your No last visit? Has dressing in place as prescribed Yes Has compression in place as prescribed Yes Has offloadiing in place as prescribed Yes Experienced any changes in pain level or No management Pain Scale: 0-10 Numeric Is Patient Pain Free? Yes WC - Nurse 1 - General Ulcer Measurement Start: 12/07/23 11:18 Freq: Status: Active Protocol: Activity Type Activity Date Activity User E-sign Co-sign Detail Recorded Client Recorded Date Recorded By Document 12/07/23 11:23 [id number] 12/07/23 11:29 12/07/23 11:23 Wound Center Nurse 1 #4- L MED HEEL post op -Current Size (cm) - Length 1.4 -Current Size (cm) - Width 1.9 -Current Size (cm) - Depth 1 -Total Square Cm 2.66 -Exudate Amt Medium -Exudate Type Sanguineous -Wound Margin Distinct, Outline Attached -Granulation Amt Large (67-100%) -Granulation Quality Red -Necrosis Amt None Present (0 %) -Structure Exposed N/A -Texture (Hannah-wound Skin Appearance) Scarring -Moisture (Hannah-wound Skin Appearance) Dry/Scaly -Color (Hannah-wound Skin Appearance) No Abnormality -Temperature (Hannah-wound Skin No Abnormality Appearance) (Pt Warm) -Ulcer Cleansing Soap and Water -Foul Odor after Cleansing No WC - Nurse 2 - General Ulcer CM Notes Start: 12/07/23 11:18 Freq: Status: Active Protocol: Activity Type Activity Date Activity User E-sign Co-sign Detail Recorded Client Recorded Date Recorded By Document 12/07/23 11:59 [facility] [id number] 12/07/23 12:04 [facility] 12/07/23 11:59 Wound Center Nurse 2 -Time 12:00 -Correct Patient Yes -Correct Side, Site, Position Yes -Correct Procedure Yes -Procedure Performed Yes -Type of Procedure Debridement -Clinical Debridement Subcutaneous -Tissue Removed Subcutaneous -Post Debridement (cm) - Length 2.9 -Post Debridement (cm) - Width 4.6 -Post Debridement (cm) - Depth 0.1 -Total Square (Post) (cm) 13.34 -Area of Debridement (cm) - Length 2.9 -Area of Debridement (cm) - Width 4.6 -Total Square (Area) (cm) 13.34 -Tunneling No -Undermining/Tunneling No -Circular Undermining No -Wound/Ulcer Outcome Not Healed -Ulcer Cleansing Rinsed/ Irrigated with Saline -Foul Odor after Cleansing No -Bioengineered Tissue No -Bleeding Controlled with Pressure,Silver Nitrate -Treatment Response Procedure Tolerated Well -Debridement - Subq, 1st 20sq cm Yes Pain Scale: 0-10 Numeric Is Patient Pain Free? Yes - Nurse 3 - General Ulcer D/C NN Start: 12/07/23 11:18 Freq: Status: Active Protocol: Activity Type Activity Date Activity User E-sign Co-sign Detail Recorded Client Recorded Date Recorded By Document 12/07/23 12:10 [id number] 12/07/23 12:13 12/07/23 12:10 Wound Care Center Nurse 3 #4- L MED HEEL post op -Ulcer Cleansing Soap and Water -Foul Odor after Cleansing No -Other Dressing dakins soaked gauze -Primary Dressing Covered/Secured with Dry Gauze & Roll Gauze, Secured with Tape Left -Lotion applied to leg before No compression wrap -Compression Wrap Kd Wrap Pain Scale: 0-10 Numeric Is Patient Pain Free? Yes WC - Visit Discharge Discharge Condition Stable Ambulatory Status Ambulatory, Walker Transportation Private Auto Assessment/Plan Assessment/Plan (1) Non-pressure chronic ulcer of other part of left foot with fat layer exposed: CODE(S): L97.522 - Non-pressure chronic ulcer of other part of left foot with fat layer exposed PLAN: Patient was examined and evaluated. All findings were discussed with the patient. All questions were answered to the patient's satisfaction. Excisional debridement down to and including subcutaneous tissue with a number 5 mm dermal curette to the left medial heel full-thickness ulceration without incident. Predebridement measurement was 1.7 x 2.5 x 0.1 cm. Postdebridement measurement is 2.9 x 4.6 x 0.1 cm. Left medial ulceration was dressed with Dakin soaked gauze dry sterile dressing and compression wrap was applied to left lower extremity. Educated the patient and his to get out of the diabetic shoes and return to his new balance shoes with Ede brace to the bilateral lower extremity. But this was discussed with the patient's she said that there concern for rubbing from the brace, I recommended to observe the patient standing to see if his foot turns in and if it does not I would recommend continuing the brace. However, if the inward turning of the foot is noted with the brace they are to remove the brace and continue to wear the white new balance shoes as discussed. Dressing change orders and instructions were dispensed for home health care. Follow-up at the wound care center with Dr. Spann in 1 week. (2) Blister (nonthermal), left foot, initial encounter: CODE(S): S90.822A - Blister (nonthermal), left foot, initial encounter
[2023-12-14 13:23] VITALS: BP 134/80; PULSE 64; RESP 18; TEMP 35.9
--- NOTE | 2023-12-14 14:30 | PCM.WC.PN ---
History of Present Illness Date of Service: 12/14/23 Chief Complaint: Right foot ulcer History of Wound: This 76-year-old male with significant PMHx of diabetes type II with peripheral polyneuropathy, atrial fibrillation, hyperlipidemia, HTN, blindness, insomnia, history of acute renal failure, retinitis pigmentosa, Kaposi sarcoma right foot, and history of venous insufficiency with multiple procedural interventions was seen for right and left foot ulcer. Last seen by Dr. Moore, vascular specialist in 2020. Patient has not gone back for continued evaluation. Does have confirmed venous insufficiency of the great saphenous vein bilateral with bilateral lower extremity edema and lymphedema. He denies N/V/F/chills. He denies redness or odor to the foot bilateral. He is with his today. states that he had been following with Dr. Natalia Hernandez, Ned[facility]Aura in office following dispense of Sigvaris compression wrap and bilateral AFO braces made by [email or web address]. states that these braces have caused rubbing on the inside of the heel of both feet that had formed a blister and eventually broke open into a wound. States that they have not healed in the last month and Dr. Hernandez referred them to the wound care center for further evaluation. Subjective Subjective Mr. Renae is a 78-year-old diabetic male presented wound care center today for follow-up evaluation of left medial heel wound. Patient has left his compression wraps clean dry and intact. He admits improvement with dressing changes. He denies any trauma. Denies constitutional symptoms. No other pedal complaints at this time. Objective Data Objective Data Vital Signs: Vital Signs Temp Pulse Resp BP O2 Del Method 96.7 F L 64 18 134/80 H Room Air 12/14/23 13:23 12/14/23 13:23 12/14/23 13:23 12/14/23 13:23 12/14/23 13:23 Oxygen Delivery Method Room Air Physical Exam Narrative Vascular: DP and PT pulse are palpable. CFT is brisk. +1 pitting edema appreciated bilateral lower extremity. No erythema to the left lower extremity. Neurological: Light touch is intact. Protective station is absent. Dermatological: Full-thickness ulceration appreciated to the left medial heel measuring 2.7 x 4.0 x 0.1 cm. Wound base is 100% granular nature. No erythema, probe to bone or sign of infection. Excisional debridement down to and including subcutaneous tissue with a number 5 mm dermal curette to the left medial heel full-thickness ulceration without incident. Predebridement measurement was 2.0 x 3.5 x 0.1 cm. Postdebridement measurement is 2.7 x 4.0 x 0.1 cm. Musculoskeletal: No pain on palpation to the left medial heel. No pain with calf compression bilateral. Debridement Note Debridement Note Debridement Free Text: Excisional debridement down to and including subcutaneous tissue with a number 5 mm dermal curette to the left medial heel full-thickness ulceration without incident. Predebridement measurement was 2.0 x 3.5 x 0.1 cm. Postdebridement measurement is 2.7 x 4.0 x 0.1 cm. Post-Debridement Measurements and Additional Note: Post-Debridement Measurements/Treatment - Nurse 1 - General Ulcer Assessment Start: 12/07/23 11:18 Freq: Status: Active Protocol: JORGE Activity Type Activity Date Activity User E-sign Co-sign Detail Recorded Client Recorded Date Recorded By Document 12/07/23 11:23 DL [id number] 12/07/23 11:29 DL Document 12/14/23 13:23 KW [id number] 12/14/23 13:32 KW 12/07/23 12/14/23 11:23 13:23 - Today's Visit Information Type of service Follow-up Visit Follow-up Visit (Physician/ENGINE SERVICE REPAIRER (Physician/ENGINE SERVICE REPAIRER ) ) Arrival Mode Wheelchair Wheelchair Transfer Assistance Manual Patient Identification Verified (Name & Yes Yes ) Patient Requires Transmission-Based No Precautions Vital Signs Temperature (97.8 F-99.1 F) 98.3 F 96.7 F L Temperature Source Temporal Temporal Pulse Rate (60-100) 63 64 Pulse Location Monitor Monitor Respiratory Rate (12-18) 20 H 18 Respiratory rate source Observation Monitor Oxygen Delivery Method Room Air Blood Pressure (90/60-120/80) 140/65 H 134/80 H Blood Pressure Mean (mm Hg) 90 98 Source Monitor Monitor Position Semi-Fowlers Blood Pressure Location Left Forearm History Since Last Visit- (Skip if this is Patient's initial visit) Have you changed medications since your No No last visit? Any new allergies or adverse reactions No No Had a fall/change in ADL's that may No No increase risk of falls Signs or symptoms of abuse and/or No No neglect since last visit Have you been in the hospital since your No No last visit? Has dressing in place as prescribed Yes Yes Has compression in place as prescribed Yes Yes Has offloadiing in place as prescribed Yes No Experienced any changes in pain level or No No management Left Footwear Regular Shoe Right Footwear Regular Shoe Pain Scale: 0-10 Numeric Is Patient Pain Free? Yes Yes WC - Nurse 1 - General Ulcer Measurement Start: 12/07/23 11:18 Freq: Status: Active Protocol: Activity Type Activity Date Activity User E-sign Co-sign Detail Recorded Client Recorded Date Recorded By Document 12/07/23 11:23 DL [id number] 12/07/23 11:29 DL Document 12/14/23 13:23 KW [id number] 12/14/23 13:32 KW 12/07/23 12/14/23 11:23 13:23 Wound Center Nurse 1 #4- L MED HEEL post op -Current Size (cm) - Length 1.4 3 -Current Size (cm) - Width 1.9 3 -Current Size (cm) - Depth 1 0.3 -Total Square Cm 2.66 9 -Date of Last Picture (Recall this 12/14/23 field) -Exudate Amt Medium -Exudate Type Sanguineous -Wound Margin Distinct, Outline Attached -Granulation Amt Large (67-100%) Large (67-100%) -Granulation Quality Red [place] -Necrosis Amt None Present (0 Small (1-33%) %) -Necrotic Tissue Type Adherent Slough -Structure Exposed N/A -Texture (Hannah-wound Skin Appearance) Scarring Assessed,Callus -Moisture (Hannah-wound Skin Appearance) Dry/Scaly Assessed, Maceration -Color (Hannah-wound Skin Appearance) No Abnormality Assessed -Temperature (Hannah-wound Skin No Abnormality No Abnormality Appearance) (Pt Warm) (Pt Warm) -Tenderness on Palpation (Hannah-wound No Skin Appearance) -Ulcer Cleansing Soap and Water Rinsed/ Irrigated with Saline -Foul Odor after Cleansing No No -Anesthetic Used 5% Lidocaine Gel WC - Nurse 2 - General Ulcer CM Notes Start: 12/07/23 11:18 Freq: Status: Active Protocol: Activity Type Activity Date Activity User E-sign Co-sign Detail Recorded Client Recorded Date Recorded By Document 12/07/23 11:59 [facility] [id number] 12/07/23 12:04 [facility] Document 12/14/23 13:41 [id number] [id number] 12/14/23 13:43 12/07/23 12/14/23 11:59 13:41 Wound Center Nurse 2 #4- L MED HEEL post op -Time 12:00 13:43 -Correct Patient Yes Yes -Correct Side, Site, Position Yes Yes -Correct Procedure Yes Yes -Procedure Performed Yes Yes -Type of Procedure Debridement Debridement -Clinical Debridement Subcutaneous Subcutaneous -Tissue Removed Subcutaneous Subcutaneous -Post Debridement (cm) - Length 2.9 4.0 -Post Debridement (cm) - Width 4.6 2.7 -Post Debridement (cm) - Depth 0.1 0.1 -Total Square (Post) (cm) 13.34 10.80 -Area of Debridement (cm) - Length 2.9 4.0 -Area of Debridement (cm) - Width 4.6 2.7 -Total Square (Area) (cm) 13.34 10.80 -Tunneling No No -Undermining/Tunneling No No -Circular Undermining No No -Wound/Ulcer Outcome Not Healed Not Healed -Ulcer Cleansing Rinsed/ Rinsed/ Irrigated with Irrigated with Saline Saline -Foul Odor after Cleansing No No -Bioengineered Tissue No No -Bleeding Controlled with Pressure,Silver Pressure Nitrate -Treatment Response Procedure Procedure Tolerated Well Tolerated Well -Offloading No -Debridement - Subq, 1st 20sq cm Yes Yes Pain Scale: 0-10 Numeric Is Patient Pain Free? Yes Yes WC - Nurse 3 - General Ulcer D/C NN Start: 12/07/23 11:18 Freq: Status: Active Protocol: Activity Type Activity Date Activity User E-sign Co-sign Detail Recorded Client Recorded Date Recorded By Document 12/07/23 12:10 [id number] 12/07/23 12:13 Document 12/14/23 13:59 [facility] [id number] 12/14/23 14:00 [facility] 12/07/23 12/14/23 12:10 13:59 Wound Care Center Nurse 3 #4- L MED HEEL post op -Ulcer Cleansing Soap and Water Rinsed/ Irrigated with Saline -Foul Odor after Cleansing No No -Primary Dressing Applied Aquacel AG 4x4, Optilok 6.5x10 -Other Dressing dakins soaked kerlix gauze -Primary Dressing Covered/Secured with Dry Gauze & Dry Gauze & Roll Gauze, Roll Gauze, Secured with Secured with Tape Tape -Aquacel AG 4x4 1 -Optilok 6.5x10 1 Left -Lotion applied to leg before No compression wrap -Multi-Layered Wrap Application Multi-Layer Comp - Left ($) -Compression Wrap Kd Wrap Treatment Response Procedure Tolerated Well Pain Scale: 0-10 Numeric Is Patient Pain Free? Yes Yes WC - Visit Discharge Discharge Condition Stable Stable Ambulatory Status Ambulatory, Wheelchair Walker Transportation Private Auto Private Auto Accompanied by [facility] Facility Type Home Health Assessment/Plan Assessment/Plan (1) Non-pressure chronic ulcer of other part of left foot with fat layer exposed: CODE(S): L97.522 - Non-pressure chronic ulcer of other part of left foot with fat layer exposed PLAN: Patient was examined and evaluated. All findings were discussed with the patient. All questions were answered to the patient's satisfaction. Excisional debridement down to and including subcutaneous tissue with a number 5 mm dermal curette to the left medial heel full-thickness ulceration without incident. Predebridement measurement was 2.0 x 3.5 x 0.1 cm. Postdebridement measurement is 2.7 x 4.0 x 0.1 cm. Left medial foot ulceration was dressed with Aquacel Ag dry sterile dressing and 3M multilayer compression bandage. Patient will follow-up for nursing visit. Follow-up at the wound care center with Dr. Spann in 1 week. (2) Blister (nonthermal), left foot, initial encounter: CODE(S): S90.822A - Blister (nonthermal), left foot, initial encounter
[2023-12-28 14:02] VITALS: BP 163/68; PULSE 70; RESP 16; TEMP 36.6
--- NOTE | 2023-12-28 14:25 | PN.PCM_ITS ---
History of Present Illness Date of Service: 12/28/23 Chief Complaint: Right foot ulcer History of Wound: This 76-year-old male with significant PMHx of diabetes type II with peripheral polyneuropathy, atrial fibrillation, hyperlipidemia, HTN, blindness, insomnia, history of acute renal failure, retinitis pigmentosa, Kaposi sarcoma right foot, and history of venous insufficiency with multiple procedural interventions was seen for right and left foot ulcer. Last seen by Dr. Moore, vascular specialist in 2020. Patient has not gone back for continued evaluation. Does have confirmed venous insufficiency of the great saphenous vein bilateral with bilateral lower extremity edema and lymphedema. He denies N/V/F/chills. He denies redness or odor to the foot bilateral. He is with his today. states that he had been following with Dr. Natalia Hernandez, [place].P.MIvan in office following dispense of Sigvaris compression wrap and bilateral AFO braces made by [employer] [facility] [employer]. states that these braces have caused rubbing on the inside of the heel of both feet that had formed a blister and eventually broke open into a wound. States that they have not healed in the last month and Dr. Hernandez referred them to the wound care center for further evaluation. Subjective Subjective Mr. Renae is a 78-year-old diabetic male presenting to clinic today for follow- up evaluation to left medial heel wound. Patient has been getting dressing changed by home health care. They admit improvement to the wound and no drainage at this time. His blood sugars under control. He has new shoes that seem to be offloading the area and not rubbing. He does admit to scraping his right arm against the door handle at home. He will be seeing nurse practitioner here at the wound care center for follow-up evaluation. He denies constitutional symptoms. No other pedal complaints at this time. Objective Data Objective Data Vital Signs: Vital Signs Temp Pulse Resp BP O2 Del Method 97.8 F 70 16 163/68 H Room Air 12/28/23 14:02 12/28/23 14:02 12/28/23 14:02 12/28/23 14:02 12/14/23 13:23 Oxygen Delivery Method Room Air Physical Exam Narrative Vascular: DP and PT pulse are palpable. CFT is brisk. +1 pitting edema appreciated bilateral lower extremity. No erythema to the left lower extremity. Neurological: Light touch is intact. Protective station is absent. Dermatological: Full-thickness ulceration appreciated to the left medial heel measuring 0.2 x 0.3 x 0.1 cm. Wound base is 100% granular nature. Evidence of hyperkeratotic periwound. no erythema, probe to bone or sign of infection. Excisional debridement down to and including subcutaneous tissue with a #15 blade to the left medial heel full-thickness ulceration without incident. Predebridement measurement was callus postdebridement measurement is 0.2 x 0.3 x 0.1 cm. Musculoskeletal: No pain on palpation to the left medial heel. No pain with calf compression bilateral. Debridement Note Debridement Note Debridement Free Text: Excisional debridement down to and including subcutaneous tissue with a #15 blade to the left medial heel full-thickness ulceration without incident. Predebridement measurement was callus postdebridement measurement is 0.2 x 0.3 x 0.1 cm. Post-Debridement Measurements and Additional Note: Post-Debridement Measurements/Treatment - Nurse 1 - General Ulcer Assessment Start: 12/07/23 11:18 Freq: Status: Active Protocol: WC.LOWMARCIE Activity Type Activity Date Activity User E-sign Co-sign Detail Recorded Client Recorded Date Recorded By Document 12/07/23 11:23 DL [id number] 12/07/23 11:29 DL Document 12/14/23 13:23 KW [id number] 12/14/23 13:32 KW Document 12/21/23 14:05 ML [id number] 12/21/23 14:07 ML Document 12/28/23 14:02 JF [id number] 12/28/23 14:09 JF 12/07/23 12/14/23 12/21/23 11:23 13:23 14:05 - Today's Visit Information Type of service Follow-up Visit Follow-up Visit Nurse-only (Physician/AMORTIZATION CLERK (Physician/AMORTIZATION CLERK Visit ) ) Arrival Mode Wheelchair Wheelchair Wheelchair Transfer Assistance Manual Patient Identification Verified (Name & Yes Yes Yes ) Patient Requires Transmission-Based No No Precautions Vital Signs Temperature (97.8 F-99.1 F) 98.3 F 96.7 F L Temperature Source Temporal Temporal Pulse Rate (60-100) 63 64 Pulse Location Monitor Monitor Respiratory Rate (12-18) 20 H 18 Respiratory rate source Observation Monitor Oxygen Delivery Method Room Air Blood Pressure (90/60-120/80) 140/65 H 134/80 H Blood Pressure Mean (mm Hg) 90 98 Source Monitor Monitor Position Semi-Fowlers Blood Pressure Location Left Forearm History Since Last Visit- (Skip if this is Patient's initial visit) Have you changed medications since your No No No last visit? Any new allergies or adverse reactions No No No Had a fall/change in ADL's that may No No No increase risk of falls Signs or symptoms of abuse and/or No No No neglect since last visit Have you been in the hospital since your No No last visit? Has dressing in place as prescribed Yes Yes Yes Has compression in place as prescribed Yes Yes Yes Has offloadiing in place as prescribed Yes No Yes Experienced any changes in pain level or No No No management Left Footwear Regular Shoe Right Footwear Regular Shoe Pain Scale: 0-10 Numeric Is Patient Pain Free? Yes Yes Yes 12/28/23 14:02 WC - Today's Visit Information Type of service Follow-up Visit (Physician/AMORTIZATION CLERK ) Arrival Mode Wheelchair Transfer Assistance Manual Patient Identification Verified (Name & Yes ) Patient Requires Transmission-Based No Precautions Vital Signs Temperature (97.8 F-99.1 F) 97.8 F Temperature Source Temporal Pulse Rate (60-100) 70 Pulse Location Monitor Respiratory Rate (12-18) 16 Respiratory rate source Observation Oxygen Delivery Method Blood Pressure (90/60-120/80) 163/68 H Blood Pressure Mean (mm Hg) 99 Source Monitor Position Semi-Fowlers Blood Pressure Location Left Arm History Since Last Visit- (Skip if this is Patient's initial visit) Have you changed medications since your No last visit? Any new allergies or adverse reactions No Had a fall/change in ADL's that may No increase risk of falls Signs or symptoms of abuse and/or No neglect since last visit Have you been in the hospital since your No last visit? Has dressing in place as prescribed Yes Has compression in place as prescribed Yes Has offloadiing in place as prescribed Yes Experienced any changes in pain level or No management Left Footwear Regular Shoe Right Footwear Regular Shoe Pain Scale: 0-10 Numeric Is Patient Pain Free? Yes - Nurse 1 - General Ulcer Measurement Start: 12/07/23 11:18 Freq: Status: Active Protocol: Activity Type Activity Date Activity User E-sign Co-sign Detail Recorded Client Recorded Date Recorded By Document 12/07/23 11:23 DL [id number] 12/07/23 11:29 DL Document 12/14/23 13:23 KW [id number] 12/14/23 13:32 KW Document 12/28/23 14:02 JF [id number] 12/28/23 14:09 JF Edit Result 12/28/23 14:02 JF (1) [id number] 12/28/23 14:21 JF (1) 6-right FA - Combined with other wound => No - Current Size (cm) - Length => 3.8 - Current Size (cm) - Width => 5.0 - Current Size (cm) - Depth => 0.1 - Total Square Cm => 19.00 - Photo Taken => No - Epithelialization => Small 1-33% - Tunneling => No - Undermining/Tunneling => No - Circular Undermining => No - Exudate Amt => Small - Exudate Type => Serosanguineous - Wound Margin => Flat & Intact - Granulation Amt => Large (67-100%) - Granulation Quality => Red - Slough/Fibrin => Yes - Necrosis Amt => Small (1-33%) - Necrotic Tissue Type => Adherent Slough - Structure Exposed => N/A - Texture (Hannah-wound Skin Appearance) => Assessed,Localized => Edema - Moisture (Hannah-wound Skin Appearance) => Assessed,Dry/Scaly - Color (Hannah-wound Skin Appearance) => Assessed - Temperature (Hannah-wound Skin => No Abnormality (Pt Appearance) => Warm) - Tenderness on Palpation (Hannah-wound => No Skin Appearance) - Ulcer Cleansing => Rinsed/Irrigated => with Saline - Foul Odor after Cleansing => No - Anesthetic Used => 5% Lidocaine Gel 12/07/23 12/14/23 12/28/23 11:23 13:23 14:02 Wound Center Nurse 1 6-right FA -Combined with other wound No -Current Size (cm) - Length 3.8 -Current Size (cm) - Width 5.0 -Current Size (cm) - Depth 0.1 -Total Square Cm 19.00 -Photo Taken No -Epithelialization Small 1-33% -Tunneling No -Undermining/Tunneling No -Circular Undermining No -Exudate Amt Small -Exudate Type Serosanguineous -Wound Margin Flat & Intact -Granulation Amt Large (67-100%) -Granulation Quality Red -Slough/Fibrin Yes -Necrosis Amt Small (1-33%) -Necrotic Tissue Type Adherent Slough -Structure Exposed N/A -Texture (Hannah-wound Skin Appearance) Assessed, Localized Edema -Moisture (Hannah-wound Skin Appearance) Assessed,Dry/ Scaly -Color (Hannah-wound Skin Appearance) Assessed -Temperature (Hannah-wound Skin No Abnormality Appearance) (Pt Warm) -Tenderness on Palpation (Hannah-wound No Skin Appearance) -Ulcer Cleansing Rinsed/ Irrigated with Saline -Foul Odor after Cleansing No -Anesthetic Used 5% Lidocaine Gel #4- L MED HEEL post op -Combined with other wound No -Current Size (cm) - Length 1.4 3 0.1 -Current Size (cm) - Width 1.9 3 0.1 -Current Size (cm) - Depth 1 0.3 0.1 -Total Square Cm 2.66 9 0.01 -Date of Last Picture (Recall this 12/14/23 field) -Photo Taken No -Epithelialization Large 67-100% -Tunneling No -Undermining/Tunneling No -Circular Undermining No -Exudate Amt Medium None Present -Exudate Type Sanguineous -Wound Margin Distinct, Outline Attached -Granulation Amt Large (67-100%) Large (67-100%) None Present (0 %) -Granulation Quality Red Oriental -Slough/Fibrin Yes -Necrosis Amt None Present (0 Small (1-33%) Medium (34-66%) %) -Necrotic Tissue Type Adherent Slough Adherent Slough -Structure Exposed N/A N/A -Texture (Hannah-wound Skin Appearance) Scarring Assessed,Callus Assessed -Moisture (Hannah-wound Skin Appearance) Dry/Scaly Assessed, Assessed,Dry/ Maceration Scaly -Color (Hannah-wound Skin Appearance) No Abnormality Assessed Assessed -Temperature (Hannah-wound Skin No Abnormality No Abnormality No Abnormality Appearance) (Pt Warm) (Pt Warm) (Pt Warm) -Tenderness on Palpation (Hannah-wound No No Skin Appearance) -Ulcer Cleansing Soap and Water Rinsed/ Wound Cleanser Irrigated with Saline -Foul Odor after Cleansing No No No -Anesthetic Used 5% Lidocaine Gel Lower Limb Edema Present Yes Left Calf (cm) 47 Left Ankle (cm) 31.0 - Nurse 2 - General Ulcer CM Notes Start: 12/07/23 11:18 Freq: Status: Active Protocol: Activity Type Activity Date Activity User E-sign Co-sign Detail Recorded Client Recorded Date Recorded By Document 12/07/23 11:59 [facility] [id number] 12/07/23 12:04 [facility] Document 12/14/23 13:41 [id number] 12/14/23 13:43 Document 12/28/23 14:16 [id number] 12/28/23 14:17 12/07/23 12/14/23 12/28/23 11:59 13:41 14:16 Wound Center Nurse 2 #4- L MED HEEL post op -Time 12:00 13:43 14:16 -Correct Patient Yes Yes Yes -Correct Side, Site, Position Yes Yes Yes -Correct Procedure Yes Yes Yes -Procedure Performed Yes Yes Yes -Type of Procedure Debridement Debridement Debridement -Clinical Debridement Subcutaneous Subcutaneous Subcutaneous -Tissue Removed Subcutaneous Subcutaneous Subcutaneous -Post Debridement (cm) - Length 2.9 4.0 0.2 -Post Debridement (cm) - Width 4.6 2.7 0.3 -Post Debridement (cm) - Depth 0.1 0.1 0.1 -Total Square (Post) (cm) 13.34 10.80 0.06 -Area of Debridement (cm) - Length 2.9 4.0 0.2 -Area of Debridement (cm) - Width 4.6 2.7 0.3 -Total Square (Area) (cm) 13.34 10.80 0.06 -Tunneling No No No -Undermining/Tunneling No No No -Circular Undermining No No No -Wound/Ulcer Outcome Not Healed Not Healed Not Healed -Ulcer Cleansing Rinsed/ Rinsed/ Rinsed/ Irrigated with Irrigated with Irrigated with Saline Saline Saline -Foul Odor after Cleansing No No No -Bioengineered Tissue No No No -Bleeding Controlled with Pressure,Silver Pressure Pressure Nitrate -Treatment Response Procedure Procedure Procedure Tolerated Well Tolerated Well Tolerated Well -Offloading No No -Debridement - Subq, 1st 20sq cm Yes Yes Yes Pain Scale: 0-10 Numeric Is Patient Pain Free? Yes Yes Yes - Nurse 3 - General Ulcer D/C NN Start: 12/07/23 11:18 Freq: Status: Active Protocol: Activity Type Activity Date Activity User E-sign Co-sign Detail Recorded Client Recorded Date Recorded By Document 12/07/23 12:10 GM [id number] 12/07/23 12:13 GM Document 12/14/23 13:59 BMF [id number] 12/14/23 14:00 BMF Document 12/21/23 14:05 ML [id number] 12/21/23 14:07 ML 12/07/23 12/14/23 12/21/23 12:10 13:59 14:05 Wound Care Center Nurse 3 #4- L MED HEEL post op -Ulcer Cleansing Soap and Water Rinsed/ Soap and Water Irrigated with Saline -Foul Odor after Cleansing No No No -Primary Dressing Applied Aquacel AG 4x4, Aquacel AG 4x4 Optilok 6.5x10 -Other Dressing dakins soaked kerlix gauze -Primary Dressing Covered/Secured with Dry Gauze & Dry Gauze & Dry Gauze, Roll Gauze, Roll Gauze, Secured with Secured with Secured with Tape Tape Tape -Aquacel AG 4x4 1 1 -Optilok 6.5x10 1 Left -Lotion applied to leg before No No compression wrap -Multi-Layered Wrap Application Multi-Layer Multi-Layer Comp - Left ($) Comp - Left ($) -Compression Wrap Kd Wrap Treatment Response Procedure Tolerated Well Pain Scale: 0-10 Numeric Is Patient Pain Free? Yes Yes Yes WC - Visit Discharge Discharge Condition Stable Stable Ambulatory Status Ambulatory, Wheelchair Walker Transportation Private Auto Private Auto Accompanied by [facility] Facility Type Home Health Assessment/Plan Assessment/Plan (1) Non-pressure chronic ulcer of other part of left foot with fat layer exposed: CODE(S): L97.522 - Non-pressure chronic ulcer of other part of left foot with fat layer exposed PLAN: Patient was examined and evaluated. All findings were discussed with the patient. All questions were answered to the patient's satisfaction. Excisional debridement down to and including subcutaneous tissue with a #15 blade to the left medial heel full-thickness ulceration without incident. Pre debridement measurement was callus postdebridement measurement is 0.2 x 0.3 x 0.1 cm. Left medial foot ulceration was dressed with Aquacel Ag dry sterile dressing and 3M multilayer compression bandage. Patient will follow-up with nurse practitioner regarding the right upper extremity full-thickness ulceration secondary to trauma. Follow-up at the wound care center with Dr. Spann in 1 week.
--- NOTE | 2023-12-28 17:02 | PN.PCM_ITS ---
History of Present Illness Date of Service: 12/28/23 Chief Complaint: Right foot ulcer History of Wound: This 78-year-old male with significant PMHx of diabetes type II with peripheral polyneuropathy, atrial fibrillation, hyperlipidemia, HTN, blindness, insomnia, history of acute renal failure, retinitis pigmentosa, Kaposi sarcoma right foot, and history of venous insufficiency with multiple procedural interventions was seen for right and left foot ulcer. Does have confirmed venous insufficiency of the great saphenous vein bilateral with bilateral lower extremity edema and lymphedema. He denies N/V/F/chills. He sees Dr. Spann for his foot ulcer care. I was asked to see him today for his right proximal forearm non healing wound that occurred a couple weeks ago when he fell against a door frame. Progress of Wound: Patient sees Dr. Spann for his heel ulcer. Right forearm wound that occurred about 2 weeks ago when he fell against a door frame. He acquired a skin tear that is not healing. They have been placing antibiotic ointment on the area without much improvement. There is a thick layer of non viable tissue present covering the wound. Objective Data Objective Data Vital Signs: Vital Signs Temp Pulse Resp BP O2 Del Method 97.8 F 70 16 163/68 H Room Air 12/28/23 14:02 12/28/23 14:02 12/28/23 14:02 12/28/23 14:02 12/14/23 13:23 Oxygen Delivery Method Room Air Charges/Coding Procedures Integumentary 111xxx-113xx: [id number] Rachel subq tissue 20 sq cm/< Physical Exam Const oriented x3 and no apparent distress HEENT normocephalic Head and Scalp: atraumatic Eyes Eyes Narrative: Patient is blind Lymph Lymphatic: no lymphedema noted Resp normal respiratory effort Effort and Inspection: able to speak in complete sentences Cardio regular rate Skin Wound Narrative: Right proximal forearm with skin tear into the subcutaneous tissue. Neuro Speech: speech normal Psych affect normal Debridement Note Debridement Note Wound debrided: proximal forearm Laterality: Right Wound Grade/Stage: Stage III Type of Debridement: Excisional debridement Anesthesia Used: 5% Lidocaine Gel Depth: Down to and including healthy tissue and in the subcutaneous layer Percentage of wound debrided: 100 Instrument Used: 7mm curette Tissue Removed: Non viable tissue and slough Severity: Fat Layer Exposed Amount of bleeding with debridement: Mild Bleeding Controlled with: Pressure and Compression and gauze Patient tolerated procedure: Patient tolerated procedure well Post-Debridement Measurements and Additional Note: Post-Debridement Measurements/Treatment WC - Nurse 1 - General Ulcer Assessment Start: 12/07/23 11:18 Freq: Status: Active Protocol: JORGE Activity Type Activity Date Activity User E-sign Co-sign Detail Recorded Client Recorded Date Recorded By Document 12/07/23 11:23 DL [id number] 12/07/23 11:29 DL Document 12/14/23 13:23 KW [id number] 12/14/23 13:32 KW Document 12/21/23 14:05 ML [id number] 12/21/23 14:07 ML Document 12/28/23 14:02 JF [id number] 12/28/23 14:09 JF 12/07/23 12/14/23 12/21/23 11:23 13:23 14:05 WC - Today's Visit Information Type of service Follow-up Visit Follow-up Visit Nurse-only (Physician/ADMITTING SUPERVISOR (Physician/ADMITTING SUPERVISOR Visit ) ) Arrival Mode Wheelchair Wheelchair Wheelchair Transfer Assistance Manual Patient Identification Verified (Name & Yes Yes Yes ) Patient Requires Transmission-Based No No Precautions Vital Signs Temperature (97.8 F-99.1 F) 98.3 F 96.7 F L Temperature Source Temporal Temporal Pulse Rate (60-100) 63 64 Pulse Location Monitor Monitor Respiratory Rate (12-18) 20 H 18 Respiratory rate source Observation Monitor Oxygen Delivery Method Room Air Blood Pressure (90/60-120/80) 140/65 H 134/80 H Blood Pressure Mean (mm Hg) 90 98 Source Monitor Monitor Position Semi-Fowlers Blood Pressure Location Left Forearm History Since Last Visit- (Skip if this is Patient's initial visit) Have you changed medications since your No No No last visit? Any new allergies or adverse reactions No No No Had a fall/change in ADL's that may No No No increase risk of falls Signs or symptoms of abuse and/or No No No neglect since last visit Have you been in the hospital since your No No last visit? Has dressing in place as prescribed Yes Yes Yes Has compression in place as prescribed Yes Yes Yes Has offloadiing in place as prescribed Yes No Yes Experienced any changes in pain level or No No No management Left Footwear Regular Shoe Right Footwear Regular Shoe Pain Scale: 0-10 Numeric Is Patient Pain Free? Yes Yes Yes 12/28/23 14:02 WC - Today's Visit Information Type of service Follow-up Visit (Physician/ADMITTING SUPERVISOR ) Arrival Mode Wheelchair Transfer Assistance Manual Patient Identification Verified (Name & Yes ) Patient Requires Transmission-Based No Precautions Vital Signs Temperature (97.8 F-99.1 F) 97.8 F Temperature Source Temporal Pulse Rate (60-100) 70 Pulse Location Monitor Respiratory Rate (12-18) 16 Respiratory rate source Observation Oxygen Delivery Method Blood Pressure (90/60-120/80) 163/68 H Blood Pressure Mean (mm Hg) 99 Source Monitor Position Semi-Fowlers Blood Pressure Location Left Arm History Since Last Visit- (Skip if this is Patient's initial visit) Have you changed medications since your No last visit? Any new allergies or adverse reactions No Had a fall/change in ADL's that may No increase risk of falls Signs or symptoms of abuse and/or No neglect since last visit Have you been in the hospital since your No last visit? Has dressing in place as prescribed Yes Has compression in place as prescribed Yes Has offloadiing in place as prescribed Yes Experienced any changes in pain level or No management Left Footwear Regular Shoe Right Footwear Regular Shoe Pain Scale: 0-10 Numeric Is Patient Pain Free? Yes - Nurse 1 - General Ulcer Measurement Start: 12/07/23 11:18 Freq: Status: Active Protocol: Activity Type Activity Date Activity User E-sign Co-sign Detail Recorded Client Recorded Date Recorded By Document 12/07/23 11:23 DL [id number] 12/07/23 11:29 DL Document 12/14/23 13:23 KW [id number] 12/14/23 13:32 KW Document 12/28/23 14:02 JF [id number] 12/28/23 14:09 JF Edit Result 12/28/23 14:02 JF (1) [id number] 12/28/23 14:21 JF (1) 6-right FA - Combined with other wound => No - Current Size (cm) - Length => 3.8 - Current Size (cm) - Width => 5.0 - Current Size (cm) - Depth => 0.1 - Total Square Cm => 19.00 - Photo Taken => No - Epithelialization => Small 1-33% - Tunneling => No - Undermining/Tunneling => No - Circular Undermining => No - Exudate Amt => Small - Exudate Type => Serosanguineous - Wound Margin => Flat & Intact - Granulation Amt => Large (67-100%) - Granulation Quality => Red - Slough/Fibrin => Yes - Necrosis Amt => Small (1-33%) - Necrotic Tissue Type => Adherent Slough - Structure Exposed => N/A - Texture (Hannah-wound Skin Appearance) => Assessed,Localized => Edema - Moisture (Hannah-wound Skin Appearance) => Assessed,Dry/Scaly - Color (Hannah-wound Skin Appearance) => Assessed - Temperature (Hannah-wound Skin => No Abnormality (Pt Appearance) => Warm) - Tenderness on Palpation (Hannah-wound => No Skin Appearance) - Ulcer Cleansing => Rinsed/Irrigated => with Saline - Foul Odor after Cleansing => No - Anesthetic Used => 5% Lidocaine Gel 12/07/23 12/14/23 12/28/23 11:23 13:23 14:02 Wound Center Nurse 1 6-right FA -Combined with other wound No -Current Size (cm) - Length 3.8 -Current Size (cm) - Width 5.0 -Current Size (cm) - Depth 0.1 -Total Square Cm 19.00 -Photo Taken No -Epithelialization Small 1-33% -Tunneling No -Undermining/Tunneling No -Circular Undermining No -Exudate Amt Small -Exudate Type Serosanguineous -Wound Margin Flat & Intact -Granulation Amt Large (67-100%) -Granulation Quality Red -Slough/Fibrin Yes -Necrosis Amt Small (1-33%) -Necrotic Tissue Type Adherent Slough -Structure Exposed N/A -Texture (Hannah-wound Skin Appearance) Assessed, Localized Edema -Moisture (Hannah-wound Skin Appearance) Assessed,Dry/ Scaly -Color (Hannah-wound Skin Appearance) Assessed -Temperature (Hannah-wound Skin No Abnormality Appearance) (Pt Warm) -Tenderness on Palpation (Hannah-wound No Skin Appearance) -Ulcer Cleansing Rinsed/ Irrigated with Saline -Foul Odor after Cleansing No -Anesthetic Used 5% Lidocaine Gel #4- L MED HEEL post op -Combined with other wound No -Current Size (cm) - Length 1.4 3 0.1 -Current Size (cm) - Width 1.9 3 0.1 -Current Size (cm) - Depth 1 0.3 0.1 -Total Square Cm 2.66 9 0.01 -Date of Last Picture (Recall this 12/14/23 field) -Photo Taken No -Epithelialization Large 67-100% -Tunneling No -Undermining/Tunneling No -Circular Undermining No -Exudate Amt Medium None Present -Exudate Type Sanguineous -Wound Margin Distinct, Outline Attached -Granulation Amt Large (67-100%) Large (67-100%) None Present (0 %) -Granulation Quality Red [place] -Slough/Fibrin Yes -Necrosis Amt None Present (0 Small (1-33%) Medium (34-66%) %) -Necrotic Tissue Type Adherent Slough Adherent Slough -Structure Exposed N/A N/A -Texture (Hannah-wound Skin Appearance) Scarring Assessed,Callus Assessed -Moisture (Hannah-wound Skin Appearance) Dry/Scaly Assessed, Assessed,Dry/ Maceration Scaly -Color (Hannah-wound Skin Appearance) No Abnormality Assessed Assessed -Temperature (Hannah-wound Skin No Abnormality No Abnormality No Abnormality Appearance) (Pt Warm) (Pt Warm) (Pt Warm) -Tenderness on Palpation (Hannah-wound No No Skin Appearance) -Ulcer Cleansing Soap and Water Rinsed/ Wound Cleanser Irrigated with Saline -Foul Odor after Cleansing No No No -Anesthetic Used 5% Lidocaine Gel Lower Limb Edema Present Yes Left Calf (cm) 47 Left Ankle (cm) 31.0 WC - Nurse 2 - General Ulcer CM Notes Start: 12/07/23 11:18 Freq: Status: Active Protocol: Activity Type Activity Date Activity User E-sign Co-sign Detail Recorded Client Recorded Date Recorded By Document 12/07/23 11:59 [facility] [id number] 12/07/23 12:04 BM Document 12/14/23 13:41 [id number] 12/14/23 13:43 JF Document 12/28/23 14:16 JF [id number] 12/28/23 14:17 JF Document 12/28/23 15:22 [id number] 12/28/23 15:23 12/07/23 12/14/23 12/28/23 11:59 13:41 14:16 Wound Center Nurse 2 6-right FA -Time -Correct Patient -Correct Side, Site, Position -Correct Procedure -Procedure Performed -Type of Procedure -Clinical Debridement -Tissue Removed -Post Debridement (cm) - Length -Post Debridement (cm) - Width -Post Debridement (cm) - Depth -Total Square (Post) (cm) -Area of Debridement (cm) - Length -Area of Debridement (cm) - Width -Total Square (Area) (cm) -Tunneling -Undermining/Tunneling -Circular Undermining -Wound/Ulcer Outcome -Ulcer Cleansing -Foul Odor after Cleansing -Bioengineered Tissue -Bleeding Controlled with -Treatment Response -Debridement - Subq, 20sq cm #4- L MED HEEL post op -Time 12:00 13:43 14:16 -Correct Patient Yes Yes Yes -Correct Side, Site, Position Yes Yes Yes -Correct Procedure Yes Yes Yes -Procedure Performed Yes Yes Yes -Type of Procedure Debridement Debridement Debridement -Clinical Debridement Subcutaneous Subcutaneous Subcutaneous -Tissue Removed Subcutaneous Subcutaneous Subcutaneous -Post Debridement (cm) - Length 2.9 4.0 0.2 -Post Debridement (cm) - Width 4.6 2.7 0.3 -Post Debridement (cm) - Depth 0.1 0.1 0.1 -Total Square (Post) (cm) 13.34 10.80 0.06 -Area of Debridement (cm) - Length 2.9 4.0 0.2 -Area of Debridement (cm) - Width 4.6 2.7 0.3 -Total Square (Area) (cm) 13.34 10.80 0.06 -Tunneling No No No -Undermining/Tunneling No No No -Circular Undermining No No No -Wound/Ulcer Outcome Not Healed Not Healed Not Healed -Ulcer Cleansing Rinsed/ Rinsed/ Rinsed/ Irrigated with Irrigated with Irrigated with Saline Saline Saline -Foul Odor after Cleansing No No No -Bioengineered Tissue No No No -Bleeding Controlled with Pressure,Silver Pressure Pressure Nitrate -Treatment Response Procedure Procedure Procedure Tolerated Well Tolerated Well Tolerated Well -Offloading No No -Debridement - Subq, 1st 20sq cm Yes Yes Yes Pain Scale: 0-10 Numeric Is Patient Pain Free? Yes Yes Yes 12/28/23 15:22 Wound Center Nurse 2 6-right FA -Time 15:22 -Correct Patient Yes -Correct Side, Site, Position Yes -Correct Procedure Yes -Procedure Performed Yes -Type of Procedure Debridement -Clinical Debridement Subcutaneous -Tissue Removed Subcutaneous -Post Debridement (cm) - Length 3.8 -Post Debridement (cm) - Width 5.2 -Post Debridement (cm) - Depth 0.1 -Total Square (Post) (cm) 19.76 -Area of Debridement (cm) - Length 3.8 -Area of Debridement (cm) - Width 5.2 -Total Square (Area) (cm) 19.76 -Tunneling No -Undermining/Tunneling No -Circular Undermining No -Wound/Ulcer Outcome Not Healed -Ulcer Cleansing Rinsed/ Irrigated with Saline -Foul Odor after Cleansing No -Bioengineered Tissue No -Bleeding Controlled with Pressure -Treatment Response Procedure Tolerated Well -Debridement - Subq, 1st 20sq cm Yes #4- L MED HEEL post op -Time -Correct Patient -Correct Side, Site, Position -Correct Procedure -Procedure Performed -Type of Procedure -Clinical Debridement -Tissue Removed -Post Debridement (cm) - Length -Post Debridement (cm) - Width -Post Debridement (cm) - Depth -Total Square (Post) (cm) -Area of Debridement (cm) - Length -Area of Debridement (cm) - Width -Total Square (Area) (cm) -Tunneling -Undermining/Tunneling -Circular Undermining -Wound/Ulcer Outcome -Ulcer Cleansing -Foul Odor after Cleansing -Bioengineered Tissue -Bleeding Controlled with -Treatment Response -Offloading -Debridement - Subq, 1st 20sq cm Pain Scale: 0-10 Numeric Is Patient Pain Free? Yes WC - Nurse 3 - General Ulcer D/C NN Start: 12/07/23 11:18 Freq: Status: Active Protocol: Activity Type Activity Date Activity User E-sign Co-sign Detail Recorded Client Recorded Date Recorded By Document 12/07/23 12:10 [id number] 12/07/23 12:13 GM Document 12/14/23 13:59 BM [id number] 12/14/23 14:00 BMF Document 12/21/23 14:05 ML [id number] 12/21/23 14:07 ML Document 12/28/23 14:33 BMF [id number] 12/28/23 14:34 BMF Document 12/28/23 15:33 BM [id number] 12/28/23 15:33 BMF 12/07/23 12/14/23 12/21/23 12:10 13:59 14:05 Wound Care Center Nurse 3 6-right FA -Ulcer Cleansing -Foul Odor after Cleansing -Primary Dressing Applied -Other Dressing -Primary Dressing Covered/Secured with #4- L MED HEEL post op -Ulcer Cleansing Soap and Water Rinsed/ Soap and Water Irrigated with Saline -Foul Odor after Cleansing No No No -Primary Dressing Applied Aquacel AG 4x4, Aquacel AG 4x4 Optilok 6.5x10 -Other Dressing dakins soaked kerlix gauze -Primary Dressing Covered/Secured with Dry Gauze & Dry Gauze & Dry Gauze, Roll Gauze, Roll Gauze, Secured with Secured with Secured with Tape Tape Tape -Other Covering -Aquacel AG 4x4 1 1 -Optilok 6.5x10 1 Left -Lotion applied to leg before No No compression wrap -Multi-Layered Wrap Application Multi-Layer Multi-Layer Comp - Left ($) Comp - Left ($) -Compression Wrap Kd Wrap Treatment Response Procedure Tolerated Well Pain Scale: 0-10 Numeric Is Patient Pain Free? Yes Yes Yes WC - Visit Discharge Discharge Condition Stable Stable Ambulatory Status Ambulatory, Wheelchair Walker Transportation Private Auto Private Auto Accompanied by [facility] Facility Type Home Health 12/28/23 12/28/23 14:33 15:33 Wound Care Center Nurse 3 6-right FA -Ulcer Cleansing Rinsed/ Irrigated with Saline -Foul Odor after Cleansing No -Primary Dressing Applied C Hydrogel ($), NonAdherent Contact Layer -Other Dressing drsg per dl wind energy engineer -Primary Dressing Covered/Secured with Dry Gauze & Roll Gauze, Secured with Tape #4- L MED HEEL post op -Ulcer Cleansing Rinsed/ Irrigated with Saline -Foul Odor after Cleansing No -Primary Dressing Applied Aquacel AG 4x4 -Other Dressing abd -Primary Dressing Covered/Secured with Dry Gauze & Roll Gauze, Secured with Tape -Other Covering drsg per dl wind energy engineer -Aquacel AG 4x4 1 -Optilok 6.5x10 Left -Lotion applied to leg before compression wrap -Multi-Layered Wrap Application Multi-Layer Comp - Left ($) -Compression Wrap Treatment Response Procedure Procedure Tolerated Well Tolerated Well Pain Scale: 0-10 Numeric Is Patient Pain Free? Yes Yes WC - Visit Discharge Discharge Condition Stable Stable Ambulatory Status Wheelchair Wheelchair Transportation Private Auto Private Auto Accompanied by Facility Type Assessment/Plan Assessment/Plan (1) Non-healing wound of right upper extremity: CODE(S): S41.101A - Unspecified open wound of right upper arm, initial encounter (2) Type 2 diabetes mellitus with diabetic polyneuropathy: CODE(S): E11.42 - Type 2 diabetes mellitus with diabetic polyneuropathy QUALIFIERS: Diabetes mellitus extermination supervisor insulin use: with extermination supervisor use Qualified Code(s): E11.42 - Type 2 diabetes mellitus with diabetic polyneuropathy; Z79.4 - [facility] (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 of insulin PLAN: Plan Patient evaluated at the wound healing center. Wound care - Right proximal forearm wound place Collagen Hydrogel covered with adaptic and topped with gauze, hold in place with cling wrap. Dressing change daily. Wash wound with soap and water at the time of the dressing changes. His will assist him with his wound care. He sees Dr. Spann for his foot ulcer care. Follow up one week with me.
--- NOTE | 2023-12-30 10:10 | WC ---
PHOTO 12/28/23 RIGHT FOREARM
[2024-01-04 13:00] VITALS: BP 150/79; PULSE 92; RESP 18; TEMP 36.4
--- NOTE | 2024-01-04 13:26 | PCM.WC.PN ---
History of Present Illness Date of Service: 01/04/24 Chief Complaint: Right foot ulcer History of Wound: This 78-year-old male with significant PMHx of diabetes type II with peripheral polyneuropathy, atrial fibrillation, hyperlipidemia, HTN, blindness, insomnia, history of acute renal failure, retinitis pigmentosa, Kaposi sarcoma right foot, and history of venous insufficiency with multiple procedural interventions was seen for right and left foot ulcer. Does have confirmed venous insufficiency of the great saphenous vein bilateral with bilateral lower extremity edema and lymphedema. He denies N/V/F/chills. He sees Dr. Spann for his foot ulcer care. I was asked to see him today for his right proximal forearm non healing wound that occurred a couple weeks ago when he fell against a door frame. Progress of Wound: Patient sees Dr. Spann for his heel ulcer. Right forearm wound that occurred about 2 weeks ago when he fell against a door frame. He acquired a skin tear that is not healing. They have been placing antibiotic ointment on the area without much improvement. There is a thick layer of non viable tissue present covering the wound. Subjective Subjective Mr. Renae is a 78-year-old diabetic male presenting to wound care center today for follow-up evaluation of full-thickness wound to the medial aspect of left lower extremity. Patient has been compliant with his multilayer compression bandage. He denies any strikethrough. Blood sugar well-controlled. He has follow-up wean up with the nurse practitioner for his right upper extremity full-thickness wound. He denies any new onset of trauma. Denies constitutional symptoms. No other pedal complaints at this time. Objective Data Objective Data Vital Signs: Vital Signs Temp Pulse Resp BP O2 Del Method 97.6 F L 92 18 150/79 H Room Air 01/04/24 13:00 01/04/24 13:00 01/04/24 13:00 01/04/24 13:00 01/04/24 13:00 Oxygen Delivery Method Room Air Physical Exam Narrative Vascular: DP and PT pulse are palpable. CFT is brisk. +1 pitting edema appreciated bilateral lower extremity. No erythema to the left lower extremity. Neurological: Light touch is intact. Protective station is absent. Dermatological: Full-thickness ulceration appreciated to the left medial heel measuring 0.1 x 0.1 x 0.1 cm. Wound base is 100% granular nature. Evidence of hyperkeratotic periwound. no erythema, probe to bone or sign of infection. Musculoskeletal: No pain on palpation to the left medial heel. No pain with calf compression bilateral. Debridement Note Debridement Note Post-Debridement Measurements and Additional Note: Post-Debridement Measurements/Treatment - Nurse 1 - General Ulcer Assessment Start: 12/07/23 11:18 Freq: Status: Active Protocol: .LOWEXT Activity Type Activity Date Activity User E-sign Co-sign Detail Recorded Client Recorded Date Recorded By Document 12/07/23 11:23 DL [id number] 12/07/23 11:29 DL Document 12/14/23 13:23 KW [id number] 12/14/23 13:32 KW Document 12/21/23 14:05 ML [id number] 12/21/23 14:07 ML Document 12/28/23 14:02 JF [id number] 12/28/23 14:09 JF Document 01/04/24 13:00 KW [id number] 01/04/24 13:15 KW 12/07/23 12/14/23 12/21/23 11:23 13:23 14:05 - Today's Visit Information Type of service Follow-up Visit Follow-up Visit Nurse-only (Physician/HAMMERER TAB (Physician/HAMMERER TAB Visit ) ) Arrival Mode Wheelchair Wheelchair Wheelchair Transfer Assistance Manual Accompanied by Patient Identification Verified (Name & Yes Yes Yes ) Patient Requires Transmission-Based No No Precautions Vital Signs Temperature (97.8 F-99.1 F) 98.3 F 96.7 F L Temperature Source Temporal Temporal Pulse Rate (60-100) 63 64 Pulse Location Monitor Monitor Respiratory Rate (12-18) 20 H 18 Respiratory rate source Observation Monitor Oxygen Delivery Method Room Air Blood Pressure (90/60-120/80) 140/65 H 134/80 H Blood Pressure Mean (mm Hg) 90 98 Source Monitor Monitor Position Semi-Fowlers Blood Pressure Location Left Forearm History Since Last Visit- (Skip if this is Patient's initial visit) Have you changed medications since your No No No last visit? Any new allergies or adverse reactions No No No Had a fall/change in ADL's that may No No No increase risk of falls Signs or symptoms of abuse and/or No No No neglect since last visit Have you been in the hospital since your No No last visit? Has dressing in place as prescribed Yes Yes Yes Has compression in place as prescribed Yes Yes Yes Has offloadiing in place as prescribed Yes No Yes Experienced any changes in pain level or No No No management Left Footwear Regular Shoe Right Footwear Regular Shoe Pain Scale: 0-10 Numeric Is Patient Pain Free? Yes Yes Yes 12/28/23 01/04/24 14:02 13:00 - Today's Visit Information Type of service Follow-up Visit Follow-up Visit (Physician/HAMMERER TAB (Physician/HAMMERER TAB ) ) Arrival Mode Wheelchair Wheelchair Transfer Assistance Manual Accompanied by Patient Identification Verified (Name & Yes Yes ) Patient Requires Transmission-Based No Precautions Vital Signs Temperature (97.8 F-99.1 F) 97.8 F 97.6 F L Temperature Source Temporal Temporal Pulse Rate (60-100) 70 92 Pulse Location Monitor Monitor Respiratory Rate (12-18) 16 18 Respiratory rate source Observation Observation Oxygen Delivery Method Room Air Blood Pressure (90/60-120/80) 163/68 H 150/79 H Blood Pressure Mean (mm Hg) 99 102 Source Monitor Monitor Position Semi-Fowlers Semi-Fowlers Blood Pressure Location Left Arm Left Arm History Since Last Visit- (Skip if this is Patient's initial visit) Have you changed medications since your No No last visit? Any new allergies or adverse reactions No No Had a fall/change in ADL's that may No Yes increase risk of falls Signs or symptoms of abuse and/or No No neglect since last visit Have you been in the hospital since your No No last visit? Has dressing in place as prescribed Yes Yes Has compression in place as prescribed Yes Yes Has offloadiing in place as prescribed Yes N/A Experienced any changes in pain level or No No management Left Footwear Regular Shoe Regular Shoe Right Footwear Regular Shoe Regular Shoe Pain Scale: 0-10 Numeric Is Patient Pain Free? Yes Yes - Nurse 1 - General Ulcer Measurement Start: 12/07/23 11:18 Freq: Status: Active Protocol: Activity Type Activity Date Activity User E-sign Co-sign Detail Recorded Client Recorded Date Recorded By Document 12/07/23 11:23 DL [id number] 12/07/23 11:29 DL Document 12/14/23 13:23 KW [id number] 12/14/23 13:32 KW Document 12/28/23 14:02 JF [id number] 12/28/23 14:09 JF Edit Result 12/28/23 14:02 JF (1) [id number] 12/28/23 14:21 JF Document 01/04/24 13:00 KW [id number] 01/04/24 13:15 KW (1) 6-right FA - Combined with other wound => No - Current Size (cm) - Length => 3.8 - Current Size (cm) - Width => 5.0 - Current Size (cm) - Depth => 0.1 - Total Square Cm => 19.00 - Photo Taken => No - Epithelialization => Small 1-33% - Tunneling => No - Undermining/Tunneling => No - Circular Undermining => No - Exudate Amt => Small - Exudate Type => Serosanguineous - Wound Margin => Flat & Intact - Granulation Amt => Large (67-100%) - Granulation Quality => Red - Slough/Fibrin => Yes - Necrosis Amt => Small (1-33%) - Necrotic Tissue Type => Adherent Slough - Structure Exposed => N/A - Texture (Hannah-wound Skin Appearance) => Assessed,Localized => Edema - Moisture (Hannah-wound Skin Appearance) => Assessed,Dry/Scaly - Color (Hannah-wound Skin Appearance) => Assessed - Temperature (Hannah-wound Skin => No Abnormality (Pt Appearance) => Warm) - Tenderness on Palpation (Hannah-wound => No Skin Appearance) - Ulcer Cleansing => Rinsed/Irrigated => with Saline - Foul Odor after Cleansing => No - Anesthetic Used => 5% Lidocaine Gel 12/07/23 12/14/23 12/28/23 11:23 13:23 14:02 Wound Center Nurse 1 6-right FA -Combined with other wound No -Current Size (cm) - Length 3.8 -Current Size (cm) - Width 5.0 -Current Size (cm) - Depth 0.1 -Total Square Cm 19.00 -Photo Taken No -Epithelialization Small 1-33% -Tunneling No -Undermining/Tunneling No -Circular Undermining No -Exudate Amt Small -Exudate Type Serosanguineous -Wound Margin Flat & Intact -Granulation Amt Large (67-100%) -Granulation Quality Red -Slough/Fibrin Yes -Necrosis Amt Small (1-33%) -Necrotic Tissue Type Adherent Slough -Structure Exposed N/A -Texture (Hannah-wound Skin Appearance) Assessed, Localized Edema -Moisture (Hannah-wound Skin Appearance) Assessed,Dry/ Scaly -Color (Hannah-wound Skin Appearance) Assessed -Temperature (Hannah-wound Skin No Abnormality Appearance) (Pt Warm) -Tenderness on Palpation (Hannah-wound No Skin Appearance) -Ulcer Cleansing Rinsed/ Irrigated with Saline -Foul Odor after Cleansing No -Anesthetic Used 5% Lidocaine Gel #4- L MED HEEL post op -Combined with other wound No -Current Size (cm) - Length 1.4 3 0.1 -Current Size (cm) - Width 1.9 3 0.1 -Current Size (cm) - Depth 1 0.3 0.1 -Total Square Cm 2.66 9 0.01 -Date of Last Picture (Recall this 12/14/23 field) -Photo Taken No -Epithelialization Large 67-100% -Tunneling No -Undermining/Tunneling No -Circular Undermining No -Exudate Amt Medium None Present -Exudate Type Sanguineous -Wound Margin Distinct, Outline Attached -Granulation Amt Large (67-100%) Large (67-100%) None Present (0 %) -Granulation Quality [place] -Slough/Fibrin Yes -Necrosis Amt None Present (0 Small (1-33%) Medium (34-66%) %) -Necrotic Tissue Type Adherent Slough Adherent Slough -Structure Exposed N/A N/A -Texture (Hannah-wound Skin Appearance) Scarring Assessed,Callus Assessed -Moisture (Hannah-wound Skin Appearance) Dry/Scaly Assessed, Assessed,Dry/ Maceration Scaly -Color (Hannah-wound Skin Appearance) No Abnormality Assessed Assessed -Temperature (Hannah-wound Skin No Abnormality No Abnormality No Abnormality Appearance) (Pt Warm) (Pt Warm) (Pt Warm) -Tenderness on Palpation (Hannah-wound No No Skin Appearance) -Ulcer Cleansing Soap and Water Rinsed/ Wound Cleanser Irrigated with Saline -Foul Odor after Cleansing No No No -Anesthetic Used 5% Lidocaine Gel Lower Limb Edema Present Yes Left Calf (cm) 47 Left Ankle (cm) 31.0 01/04/24 13:00 Wound Center Nurse 1 6-right FA -Combined with other wound -Current Size (cm) - Length 0.1 -Current Size (cm) - Width 0.1 -Current Size (cm) - Depth 0.1 -Total Square Cm 0.01 -Photo Taken -Epithelialization Large 67-100% -Tunneling -Undermining/Tunneling -Circular Undermining -Exudate Amt -Exudate Type -Wound Margin -Granulation Amt -Granulation Quality -Slough/Fibrin -Necrosis Amt -Necrotic Tissue Type -Structure Exposed -Texture (Hannah-wound Skin Appearance) Assessed -Moisture (Hannah-wound Skin Appearance) Assessed -Color (Hannah-wound Skin Appearance) Assessed -Temperature (Hannah-wound Skin No Abnormality Appearance) (Pt Warm) -Tenderness on Palpation (Hannah-wound No Skin Appearance) -Ulcer Cleansing Rinsed/ Irrigated with Saline -Foul Odor after Cleansing No -Anesthetic Used 5% Lidocaine Gel #4- L MED HEEL post op -Combined with other wound -Current Size (cm) - Length 0.1 -Current Size (cm) - Width 0.1 -Current Size (cm) - Depth 0.1 -Total Square Cm 0.01 -Date of Last Picture (Recall this field) -Photo Taken -Epithelialization -Tunneling -Undermining/Tunneling -Circular Undermining -Exudate Amt -Exudate Type -Wound Margin -Granulation Amt -Granulation Quality -Slough/Fibrin -Necrosis Amt Large (67-100%) -Necrotic Tissue Type Eschar -Structure Exposed -Texture (Hannah-wound Skin Appearance) Assessed -Moisture (Hannah-wound Skin Appearance) Assessed -Color (Hannah-wound Skin Appearance) Assessed -Temperature (Hannah-wound Skin No Abnormality Appearance) (Pt Warm) -Tenderness on Palpation (Hannah-wound No Skin Appearance) -Ulcer Cleansing Rinsed/ Irrigated with Saline -Foul Odor after Cleansing No -Anesthetic Used 5% Lidocaine Gel Lower Limb Edema Present Left Calf (cm) Left Ankle (cm) WC - Nurse 2 - General Ulcer CM Notes Start: 12/07/23 11:18 Freq: Status: Active Protocol: Activity Type Activity Date Activity User E-sign Co-sign Detail Recorded Client Recorded Date Recorded By Document 12/07/23 11:59 [facility] [id number] 12/07/23 12:04 BM Document 12/14/23 13:41 [id number] 12/14/23 13:43 Document 12/28/23 14:16 [id number] 12/28/23 14:17 Document 12/28/23 15:22 [id number] 12/28/23 15:23 Document 01/04/24 13:21 [id number] 01/04/24 13:23 12/07/23 12/14/23 12/28/23 11:59 13:41 14:16 Wound Center Nurse 2 6-right FA -Time -Correct Patient -Correct Side, Site, Position -Correct Procedure -Procedure Performed -Type of Procedure -Clinical Debridement -Tissue Removed -Post Debridement (cm) - Length -Post Debridement (cm) - Width -Post Debridement (cm) - Depth -Total Square (Post) (cm) -Area of Debridement (cm) - Length -Area of Debridement (cm) - Width -Total Square (Area) (cm) -Tunneling -Undermining/Tunneling -Circular Undermining -Wound/Ulcer Outcome -Ulcer Cleansing -Foul Odor after Cleansing -Bioengineered Tissue -Bleeding Controlled with -Treatment Response -Debridement - Subq, 1st 20sq cm #4- L MED HEEL post op -Time 12:00 13:43 14:16 -Correct Patient Yes Yes Yes -Correct Side, Site, Position Yes Yes Yes -Correct Procedure Yes Yes Yes -Procedure Performed Yes Yes Yes -Type of Procedure Debridement Debridement Debridement -Clinical Debridement Subcutaneous Subcutaneous Subcutaneous -Tissue Removed Subcutaneous Subcutaneous Subcutaneous -Post Debridement (cm) - Length 2.9 4.0 0.2 -Post Debridement (cm) - Width 4.6 2.7 0.3 -Post Debridement (cm) - Depth 0.1 0.1 0.1 -Total Square (Post) (cm) 13.34 10.80 0.06 -Area of Debridement (cm) - Length 2.9 4.0 0.2 -Area of Debridement (cm) - Width 4.6 2.7 0.3 -Total Square (Area) (cm) 13.34 10.80 0.06 -Tunneling No No No -Undermining/Tunneling No No No -Circular Undermining No No No -Wound/Ulcer Outcome Not Healed Not Healed Not Healed -Ulcer Cleansing Rinsed/ Rinsed/ Rinsed/ Irrigated with Irrigated with Irrigated with Saline Saline Saline -Foul Odor after Cleansing No No No -Bioengineered Tissue No No No -Bleeding Controlled with Pressure,Silver Pressure Pressure Nitrate -Treatment Response Procedure Procedure Procedure Tolerated Well Tolerated Well Tolerated Well -Offloading No No -Debridement - Subq, 1st 20sq cm Yes Yes Yes Pain Scale: 0-10 Numeric Is Patient Pain Free? Yes Yes Yes 12/28/23 01/04/24 15:22 13:21 Wound Center Nurse 2 6-right FA -Time 15:22 -Correct Patient Yes -Correct Side, Site, Position Yes -Correct Procedure Yes -Procedure Performed Yes -Type of Procedure Debridement -Clinical Debridement Subcutaneous -Tissue Removed Subcutaneous -Post Debridement (cm) - Length 3.8 -Post Debridement (cm) - Width 5.2 -Post Debridement (cm) - Depth 0.1 -Total Square (Post) (cm) 19.76 -Area of Debridement (cm) - Length 3.8 -Area of Debridement (cm) - Width 5.2 -Total Square (Area) (cm) 19.76 -Tunneling No -Undermining/Tunneling No -Circular Undermining No -Wound/Ulcer Outcome Not Healed -Ulcer Cleansing Rinsed/ Irrigated with Saline -Foul Odor after Cleansing No -Bioengineered Tissue No -Bleeding Controlled with Pressure -Treatment Response Procedure Tolerated Well -Debridement - Subq, 1st 20sq cm Yes #4- L MED HEEL post op -Time 13:22 -Correct Patient No -Correct Side, Site, Position No -Correct Procedure No -Procedure Performed No -Type of Procedure -Clinical Debridement -Tissue Removed -Post Debridement (cm) - Length 0.1 -Post Debridement (cm) - Width 0.1 -Post Debridement (cm) - Depth 0.1 -Total Square (Post) (cm) 0.01 -Area of Debridement (cm) - Length 0.1 -Area of Debridement (cm) - Width 0.1 -Total Square (Area) (cm) 0.01 -Tunneling -Undermining/Tunneling -Circular Undermining -Wound/Ulcer Outcome Not Healed -Ulcer Cleansing -Foul Odor after Cleansing -Bioengineered Tissue -Bleeding Controlled with -Treatment Response -Offloading -Debridement - Subq, 1st 20sq cm Pain Scale: 0-10 Numeric Is Patient Pain Free? Yes Yes WC - Nurse 3 - General Ulcer D/C NN Start: 12/07/23 11:18 Freq: Status: Active Protocol: Activity Type Activity Date Activity User E-sign Co-sign Detail Recorded Client Recorded Date Recorded By Document 12/07/23 12:10 GM [id number] 12/07/23 12:13 GM Document 12/14/23 13:59 [facility] [id number] 12/14/23 14:00 BMF Document 12/21/23 14:05 ML [id number] 12/21/23 14:07 ML Document 12/28/23 14:33 BMF [id number] 12/28/23 14:34 BMF Document 12/28/23 15:33 BMF [id number] 12/28/23 15:33 BMF 12/07/23 12/14/23 12/21/23 12:10 13:59 14:05 Wound Care Center Nurse 3 6-right FA -Ulcer Cleansing -Foul Odor after Cleansing -Primary Dressing Applied -Other Dressing -Primary Dressing Covered/Secured with #4- L MED HEEL post op -Ulcer Cleansing Soap and Water Rinsed/ Soap and Water Irrigated with Saline -Foul Odor after Cleansing No No No -Primary Dressing Applied Aquacel AG 4x4, Aquacel AG 4x4 Optilok 6.5x10 -Other Dressing dakins soaked kerlix gauze -Primary Dressing Covered/Secured with Dry Gauze & Dry Gauze & Dry Gauze, Roll Gauze, Roll Gauze, Secured with Secured with Secured with Tape Tape Tape -Other Covering -Aquacel AG 4x4 1 1 -Optilok 6.5x10 1 Left -Lotion applied to leg before No No compression wrap -Multi-Layered Wrap Application Multi-Layer Multi-Layer Comp - Left ($) Comp - Left ($) -Compression Wrap Kd Wrap Treatment Response Procedure Tolerated Well Pain Scale: 0-10 Numeric Is Patient Pain Free? Yes Yes Yes WC - Visit Discharge Discharge Condition Stable Stable Ambulatory Status Ambulatory, Wheelchair Walker Transportation Private Auto Private Auto Accompanied by qwife Facility Type Home Health 12/28/23 12/28/23 14:33 15:33 Wound Care Center Nurse 3 6-right FA -Ulcer Cleansing Rinsed/ Irrigated with Saline -Foul Odor after Cleansing No -Primary Dressing Applied C Hydrogel ($), NonAdherent Contact Layer -Other Dressing drsg per dl residential recycle driver -Primary Dressing Covered/Secured with Dry Gauze & Roll Gauze, Secured with Tape #4- L MED HEEL post op -Ulcer Cleansing Rinsed/ Irrigated with Saline -Foul Odor after Cleansing No -Primary Dressing Applied Aquacel AG 4x4 -Other Dressing abd -Primary Dressing Covered/Secured with Dry Gauze & Roll Gauze, Secured with Tape -Other Covering drsg per dl residential recycle driver -Aquacel AG 4x4 1 -Optilok 6.5x10 Left -Lotion applied to leg before compression wrap -Multi-Layered Wrap Application Multi-Layer Comp - Left ($) -Compression Wrap Treatment Response Procedure Procedure Tolerated Well Tolerated Well Pain Scale: 0-10 Numeric Is Patient Pain Free? Yes Yes WC - Visit Discharge Discharge Condition Stable Stable Ambulatory Status Wheelchair Wheelchair Transportation Private Auto Private Auto Accompanied by Facility Type Assessment/Plan Assessment/Plan (1) Non-pressure chronic ulcer of other part of left foot with fat layer exposed: CODE(S): L97.522 - Non-pressure chronic ulcer of other part of left foot with fat layer exposed PLAN: Patient was examined and evaluated. All findings were discussed with the patient. All questions were answered to the patient's satisfaction. Left medial foot ulceration was dressed with Aquacel Ag dry sterile dressing and 3M multilayer compression bandage. Patient will follow-up with nurse practitioner regarding the right upper extremity full-thickness ulceration secondary to trauma. Follow-up at the wound care center with Dr. Spann in 2 week.
--- NOTE | 2024-01-04 16:38 | PN.PCM_ITS ---
History of Present Illness Date of Service: 01/04/24 Chief Complaint: Right foot ulcer History of Wound: This 78-year-old male with significant PMHx of diabetes type II with peripheral polyneuropathy, atrial fibrillation, hyperlipidemia, HTN, blindness, insomnia, history of acute renal failure, retinitis pigmentosa, Kaposi sarcoma right foot, and history of venous insufficiency with multiple procedural interventions was seen for right and left foot ulcer. Does have confirmed venous insufficiency of the great saphenous vein bilateral with bilateral lower extremity edema and lymphedema. He denies N/V/F/chills. He sees Dr. Spann for his foot ulcer care. I was asked to see him today for his right proximal forearm non healing wound that occurred a couple weeks ago when he fell against a door frame. Progress of Wound: Patient sees Dr. Spann for his heel ulcer. Right forearm wound that occurred a few weeks ago when he fell against a door frame. He acquired a skin tear that we treated him with collagen hydrogel and adaptic and it is healed. today. Objective Data Objective Data Vital Signs: Vital Signs Temp Pulse Resp BP O2 Del Method 97.6 F L 92 18 150/79 H Room Air 01/04/24 13:00 01/04/24 13:00 01/04/24 13:00 01/04/24 13:00 01/04/24 13:00 Oxygen Delivery Method Room Air Charges/Coding Visit Charges Office Visits / Consults: 95939 OV L2 Est 10min Physical Exam Const oriented x3 and no apparent distress HEENT normocephalic Head and Scalp: atraumatic Eyes Eyes Narrative: Patient is blind Lymph Lymphatic: no lymphedema noted Resp normal respiratory effort Effort and Inspection: able to speak in complete sentences Cardio regular rate Skin Wound Narrative: right proximal forearm wound is healed today. Neuro Speech: speech normal Psych affect normal Debridement Note Debridement Note Post-Debridement Measurements and Additional Note: Post-Debridement Measurements/Treatment WC - Nurse 1 - General Ulcer Assessment Start: 12/07/23 11:18 Freq: Status: Active Protocol: JORGE Activity Type Activity Date Activity User E-sign Co-sign Detail Recorded Client Recorded Date Recorded By Document 12/07/23 11:23 DL [id number] 12/07/23 11:29 DL Document 12/14/23 13:23 KW [id number] 12/14/23 13:32 KW Document 12/21/23 14:05 ML [id number] 12/21/23 14:07 ML Document 12/28/23 14:02 JF [id number] 12/28/23 14:09 JF Document 01/04/24 13:00 KW [id number] 01/04/24 13:15 KW 12/07/23 12/14/23 12/21/23 11:23 13:23 14:05 - Today's Visit Information Type of service Follow-up Visit Follow-up Visit Nurse-only (Physician/REVENUE SETTLEMENTS ADMINISTRATOR (Physician/REVENUE SETTLEMENTS ADMINISTRATOR Visit ) ) Arrival Mode Wheelchair Wheelchair Wheelchair Transfer Assistance Manual Accompanied by Patient Identification Verified (Name & Yes Yes Yes ) Patient Requires Transmission-Based No No Precautions Vital Signs Temperature (97.8 F-99.1 F) 98.3 F 96.7 F L Temperature Source Temporal Temporal Pulse Rate (60-100) 63 64 Pulse Location Monitor Monitor Respiratory Rate (12-18) 20 H 18 Respiratory rate source Observation Monitor Oxygen Delivery Method Room Air Blood Pressure (90/60-120/80) 140/65 H 134/80 H Blood Pressure Mean (mm Hg) 90 98 Source Monitor Monitor Position Semi-Fowlers Blood Pressure Location Left Forearm History Since Last Visit- (Skip if this is Patient's initial visit) Have you changed medications since your No No No last visit? Any new allergies or adverse reactions No No No Had a fall/change in ADL's that may No No No increase risk of falls Signs or symptoms of abuse and/or No No No neglect since last visit Have you been in the hospital since your No No last visit? Has dressing in place as prescribed Yes Yes Yes Has compression in place as prescribed Yes Yes Yes Has offloadiing in place as prescribed Yes No Yes Experienced any changes in pain level or No No No management Left Footwear Regular Shoe Right Footwear Regular Shoe Pain Scale: 0-10 Numeric Is Patient Pain Free? Yes Yes Yes 12/28/23 01/04/24 14:02 13:00 - Today's Visit Information Type of service Follow-up Visit Follow-up Visit (Physician/REVENUE SETTLEMENTS ADMINISTRATOR (Physician/REVENUE SETTLEMENTS ADMINISTRATOR ) ) Arrival Mode Wheelchair Wheelchair Transfer Assistance Manual Accompanied by Patient Identification Verified (Name & Yes Yes ) Patient Requires Transmission-Based No Precautions Vital Signs Temperature (97.8 F-99.1 F) 97.8 F 97.6 F L Temperature Source Temporal Temporal Pulse Rate (60-100) 70 92 Pulse Location Monitor Monitor Respiratory Rate (12-18) 16 18 Respiratory rate source Observation Observation Oxygen Delivery Method Room Air Blood Pressure (90/60-120/80) 163/68 H 150/79 H Blood Pressure Mean (mm Hg) 99 102 Source Monitor Monitor Position Semi-Fowlers Semi-Fowlers Blood Pressure Location Left Arm Left Arm History Since Last Visit- (Skip if this is Patient's initial visit) Have you changed medications since your No No last visit? Any new allergies or adverse reactions No No Had a fall/change in ADL's that may No Yes increase risk of falls Signs or symptoms of abuse and/or No No neglect since last visit Have you been in the hospital since your No No last visit? Has dressing in place as prescribed Yes Yes Has compression in place as prescribed Yes Yes Has offloadiing in place as prescribed Yes N/A Experienced any changes in pain level or No No management Left Footwear Regular Shoe Regular Shoe Right Footwear Regular Shoe Regular Shoe Pain Scale: 0-10 Numeric Is Patient Pain Free? Yes Yes WC - Nurse 1 - General Ulcer Measurement Start: 12/07/23 11:18 Freq: Status: Active Protocol: Activity Type Activity Date Activity User E-sign Co-sign Detail Recorded Client Recorded Date Recorded By Document 12/07/23 11:23 DL [id number] 12/07/23 11:29 DL Document 12/14/23 13:23 KW [id number] 12/14/23 13:32 KW Document 12/28/23 14:02 JF [id number] 12/28/23 14:09 JF Edit Result 12/28/23 14:02 JF (1) [id number] 12/28/23 14:21 JF Document 01/04/24 13:00 KW [id number] 01/04/24 13:15 KW (1) 6-right FA - Combined with other wound => No - Current Size (cm) - Length => 3.8 - Current Size (cm) - Width => 5.0 - Current Size (cm) - Depth => 0.1 - Total Square Cm => 19.00 - Photo Taken => No - Epithelialization => Small 1-33% - Tunneling => No - Undermining/Tunneling => No - Circular Undermining => No - Exudate Amt => Small - Exudate Type => Serosanguineous - Wound Margin => Flat & Intact - Granulation Amt => Large (67-100%) - Granulation Quality => Red - Slough/Fibrin => Yes - Necrosis Amt => Small (1-33%) - Necrotic Tissue Type => Adherent Slough - Structure Exposed => N/A - Texture (Hannah-wound Skin Appearance) => Assessed,Localized => Edema - Moisture (Hannah-wound Skin Appearance) => Assessed,Dry/Scaly - Color (Hannah-wound Skin Appearance) => Assessed - Temperature (Hannah-wound Skin => No Abnormality (Pt Appearance) => Warm) - Tenderness on Palpation (Hannah-wound => No Skin Appearance) - Ulcer Cleansing => Rinsed/Irrigated => with Saline - Foul Odor after Cleansing => No - Anesthetic Used => 5% Lidocaine Gel 12/07/23 12/14/23 12/28/23 11:23 13:23 14:02 Wound Center Nurse 1 6-right FA -Combined with other wound No -Current Size (cm) - Length 3.8 -Current Size (cm) - Width 5.0 -Current Size (cm) - Depth 0.1 -Total Square Cm 19.00 -Photo Taken No -Epithelialization Small 1-33% -Tunneling No -Undermining/Tunneling No -Circular Undermining No -Exudate Amt Small -Exudate Type Serosanguineous -Wound Margin Flat & Intact -Granulation Amt Large (67-100%) -Granulation Quality Red -Slough/Fibrin Yes -Necrosis Amt Small (1-33%) -Necrotic Tissue Type Adherent Slough -Structure Exposed N/A -Texture (Hannah-wound Skin Appearance) Assessed, Localized Edema -Moisture (Hannah-wound Skin Appearance) Assessed,Dry/ Scaly -Color (Hannah-wound Skin Appearance) Assessed -Temperature (Hannah-wound Skin No Abnormality Appearance) (Pt Warm) -Tenderness on Palpation (Hannah-wound No Skin Appearance) -Ulcer Cleansing Rinsed/ Irrigated with Saline -Foul Odor after Cleansing No -Anesthetic Used 5% Lidocaine Gel #4- L MED HEEL post op -Combined with other wound No -Current Size (cm) - Length 1.4 3 0.1 -Current Size (cm) - Width 1.9 3 0.1 -Current Size (cm) - Depth 1 0.3 0.1 -Total Square Cm 2.66 9 0.01 -Date of Last Picture (Recall this 12/14/23 field) -Photo Taken No -Epithelialization Large 67-100% -Tunneling No -Undermining/Tunneling No -Circular Undermining No -Exudate Amt Medium None Present -Exudate Type Sanguineous -Wound Margin Distinct, Outline Attached -Granulation Amt Large (67-100%) Large (67-100%) None Present (0 %) -Granulation Quality Red [place] -Slough/Fibrin Yes -Necrosis Amt None Present (0 Small (1-33%) Medium (34-66%) %) -Necrotic Tissue Type Adherent Slough Adherent Slough -Structure Exposed N/A N/A -Texture (Hannah-wound Skin Appearance) Scarring Assessed,Callus Assessed -Moisture (Hannah-wound Skin Appearance) Dry/Scaly Assessed, Assessed,Dry/ Maceration Scaly -Color (Hannah-wound Skin Appearance) No Abnormality Assessed Assessed -Temperature (Hannah-wound Skin No Abnormality No Abnormality No Abnormality Appearance) (Pt Warm) (Pt Warm) (Pt Warm) -Tenderness on Palpation (Hannah-wound No No Skin Appearance) -Ulcer Cleansing Soap and Water Rinsed/ Wound Cleanser Irrigated with Saline -Foul Odor after Cleansing No No No -Anesthetic Used 5% Lidocaine Gel Lower Limb Edema Present Yes Left Calf (cm) 47 Left Ankle (cm) 31.0 01/04/24 13:00 Wound Center Nurse 1 6-right FA -Combined with other wound -Current Size (cm) - Length 0.1 -Current Size (cm) - Width 0.1 -Current Size (cm) - Depth 0.1 -Total Square Cm 0.01 -Photo Taken -Epithelialization Large 67-100% -Tunneling -Undermining/Tunneling -Circular Undermining -Exudate Amt -Exudate Type -Wound Margin -Granulation Amt -Granulation Quality -Slough/Fibrin -Necrosis Amt -Necrotic Tissue Type -Structure Exposed -Texture (Hannah-wound Skin Appearance) Assessed -Moisture (Hannah-wound Skin Appearance) Assessed -Color (Hannah-wound Skin Appearance) Assessed -Temperature (Hannah-wound Skin No Abnormality Appearance) (Pt Warm) -Tenderness on Palpation (Hannah-wound No Skin Appearance) -Ulcer Cleansing Rinsed/ Irrigated with Saline -Foul Odor after Cleansing No -Anesthetic Used 5% Lidocaine Gel #4- L MED HEEL post op -Combined with other wound -Current Size (cm) - Length 0.1 -Current Size (cm) - Width 0.1 -Current Size (cm) - Depth 0.1 -Total Square Cm 0.01 -Date of Last Picture (Recall this field) -Photo Taken -Epithelialization -Tunneling -Undermining/Tunneling -Circular Undermining -Exudate Amt -Exudate Type -Wound Margin -Granulation Amt -Granulation Quality -Slough/Fibrin -Necrosis Amt Large (67-100%) -Necrotic Tissue Type Eschar -Structure Exposed -Texture (Hannah-wound Skin Appearance) Assessed -Moisture (Hannah-wound Skin Appearance) Assessed -Color (Hannah-wound Skin Appearance) Assessed -Temperature (Hannah-wound Skin No Abnormality Appearance) (Pt Warm) -Tenderness on Palpation (Hannah-wound No Skin Appearance) -Ulcer Cleansing Rinsed/ Irrigated with Saline -Foul Odor after Cleansing No -Anesthetic Used 5% Lidocaine Gel Lower Limb Edema Present Left Calf (cm) Left Ankle (cm) WC - Nurse 2 - General Ulcer CM Notes Start: 12/07/23 11:18 Freq: Status: Active Protocol: Activity Type Activity Date Activity User E-sign Co-sign Detail Recorded Client Recorded Date Recorded By Document 12/07/23 11:59 [facility] [id number] 12/07/23 12:04 [facility] Document 12/14/23 13:41 [id number] 12/14/23 13:43 Document 12/28/23 14:16 [id number] 12/28/23 14:17 Document 12/28/23 15:22 [id number] 12/28/23 15:23 Document 01/04/24 13:21 [id number] 01/04/24 13:23 Document 01/04/24 13:34 [id number] 01/04/24 13:34 12/07/23 12/14/23 12/28/23 11:59 13:41 14:16 Wound Center Nurse 2 6-right FA -Time -Correct Patient -Correct Side, Site, Position -Correct Procedure -Procedure Performed -Type of Procedure -Clinical Debridement -Tissue Removed -Post Debridement (cm) - Length -Post Debridement (cm) - Width -Post Debridement (cm) - Depth -Total Square (Post) (cm) -Area of Debridement (cm) - Length -Area of Debridement (cm) - Width -Total Square (Area) (cm) -Tunneling -Undermining/Tunneling -Circular Undermining -Wound/Ulcer Outcome -Ulcer Cleansing -Foul Odor after Cleansing -Bioengineered Tissue -Bleeding Controlled with -Treatment Response -Debridement - Subq, 1st 20sq cm #4- L MED HEEL post op -Time 12:00 13:43 14:16 -Correct Patient Yes Yes Yes -Correct Side, Site, Position Yes Yes Yes -Correct Procedure Yes Yes Yes -Procedure Performed Yes Yes Yes -Type of Procedure Debridement Debridement Debridement -Clinical Debridement Subcutaneous Subcutaneous Subcutaneous -Tissue Removed Subcutaneous Subcutaneous Subcutaneous -Post Debridement (cm) - Length 2.9 4.0 0.2 -Post Debridement (cm) - Width 4.6 2.7 0.3 -Post Debridement (cm) - Depth 0.1 0.1 0.1 -Total Square (Post) (cm) 13.34 10.80 0.06 -Area of Debridement (cm) - Length 2.9 4.0 0.2 -Area of Debridement (cm) - Width 4.6 2.7 0.3 -Total Square (Area) (cm) 13.34 10.80 0.06 -Tunneling No No No -Undermining/Tunneling No No No -Circular Undermining No No No -Wound/Ulcer Outcome Not Healed Not Healed Not Healed -Ulcer Cleansing Rinsed/ Rinsed/ Rinsed/ Irrigated with Irrigated with Irrigated with Saline Saline Saline -Foul Odor after Cleansing No No No -Bioengineered Tissue No No No -Bleeding Controlled with Pressure,Silver Pressure Pressure Nitrate -Treatment Response Procedure Procedure Procedure Tolerated Well Tolerated Well Tolerated Well -Offloading No No -Debridement - Subq, 1st 20sq cm Yes Yes Yes Pain Scale: 0-10 Numeric Is Patient Pain Free? Yes Yes Yes 12/28/23 01/04/24 01/04/24 15:22 13:21 13:34 Wound Center Nurse 2 6-right FA -Time 15:22 13:34 -Correct Patient Yes Yes -Correct Side, Site, Position Yes Yes -Correct Procedure Yes -Procedure Performed Yes -Type of Procedure Debridement -Clinical Debridement Subcutaneous -Tissue Removed Subcutaneous -Post Debridement (cm) - Length 3.8 -Post Debridement (cm) - Width 5.2 -Post Debridement (cm) - Depth 0.1 -Total Square (Post) (cm) 19.76 -Area of Debridement (cm) - Length 3.8 -Area of Debridement (cm) - Width 5.2 -Total Square (Area) (cm) 19.76 -Tunneling No -Undermining/Tunneling No -Circular Undermining No -Wound/Ulcer Outcome Not Healed Healed- Epithelialized -Ulcer Cleansing Rinsed/ Irrigated with Saline -Foul Odor after Cleansing No -Bioengineered Tissue No -Bleeding Controlled with Pressure -Treatment Response Procedure Tolerated Well -Debridement - Subq, 1st 20sq cm Yes #4- L MED HEEL post op -Time 13:22 -Correct Patient No -Correct Side, Site, Position No -Correct Procedure No -Procedure Performed No -Type of Procedure -Clinical Debridement -Tissue Removed -Post Debridement (cm) - Length 0.1 -Post Debridement (cm) - Width 0.1 -Post Debridement (cm) - Depth 0.1 -Total Square (Post) (cm) 0.01 -Area of Debridement (cm) - Length 0.1 -Area of Debridement (cm) - Width 0.1 -Total Square (Area) (cm) 0.01 -Tunneling -Undermining/Tunneling -Circular Undermining -Wound/Ulcer Outcome Not Healed -Ulcer Cleansing -Foul Odor after Cleansing -Bioengineered Tissue -Bleeding Controlled with -Treatment Response -Offloading -Debridement - Subq, 1st 20sq cm Pain Scale: 0-10 Numeric Is Patient Pain Free? Yes Yes Yes WC - Nurse 3 - General Ulcer D/C NN Start: 12/07/23 11:18 Freq: Status: Active Protocol: Activity Type Activity Date Activity User E-sign Co-sign Detail Recorded Client Recorded Date Recorded By Document 12/07/23 12:10 [id number] 12/07/23 12:13 Document 12/14/23 13:59 BM [id number] 12/14/23 14:00 BMF Document 12/21/23 14:05 ML [id number] 12/21/23 14:07 ML Document 12/28/23 14:33 BMF [id number] 12/28/23 14:34 BMF Document 12/28/23 15:33 [facility] [id number] 12/28/23 15:33 BMF Document 01/04/24 13:51 CP [id number] 01/04/24 13:52 CP 12/07/23 12/14/23 12/21/23 12:10 13:59 14:05 Wound Care Center Nurse 3 6-right FA -Ulcer Cleansing -Foul Odor after Cleansing -Primary Dressing Applied -Other Dressing -Primary Dressing Covered/Secured with #4- L MED HEEL post op -Ulcer Cleansing Soap and Water Rinsed/ Soap and Water Irrigated with Saline -Foul Odor after Cleansing No No No -Primary Dressing Applied Aquacel AG 4x4, Aquacel AG 4x4 Optilok 6.5x10 -Other Dressing dakins soaked kerlix gauze -Primary Dressing Covered/Secured with Dry Gauze & Dry Gauze & Dry Gauze, Roll Gauze, Roll Gauze, Secured with Secured with Secured with Tape Tape Tape -Other Covering -Aquacel AG 2x2 -Aquacel AG 4x4 1 1 -Optilok 6.5x10 1 Left -Lotion applied to leg before No No compression wrap -Multi-Layered Wrap Application Multi-Layer Multi-Layer Comp - Left ($) Comp - Left ($) -Compression Wrap Kd Wrap Treatment Response Procedure Tolerated Well Pain Scale: 0-10 Numeric Is Patient Pain Free? Yes Yes Yes WC - Visit Discharge Discharge Condition Stable Stable Ambulatory Status Ambulatory, Wheelchair Walker Transportation Private Auto Private Auto Accompanied by qwife Clinical Summary of Care Provided Facility Type Home Health Orders Sent 12/28/23 12/28/23 01/04/24 14:33 15:33 13:51 Wound Care Center Nurse 3 6-right FA -Ulcer Cleansing Rinsed/ Irrigated with Saline -Foul Odor after Cleansing No -Primary Dressing Applied C Hydrogel ($), NonAdherent Contact Layer -Other Dressing drsg per dl paper cone maker -Primary Dressing Covered/Secured with Dry Gauze & Roll Gauze, Secured with Tape #4- L MED HEEL post op -Ulcer Cleansing Rinsed/ Rinsed/ Irrigated with Irrigated with Saline Saline -Foul Odor after Cleansing No -Primary Dressing Applied Aquacel AG 4x4 Aquacel AG 2x2 -Other Dressing abd -Primary Dressing Covered/Secured with Dry Gauze & Dry Gauze & Roll Gauze, Roll Gauze Secured with Tape -Other Covering drsg per dl paper cone maker -Aquacel AG 2x2 1 -Aquacel AG 4x4 1 -Optilok 6.5x10 Left -Lotion applied to leg before compression wrap -Multi-Layered Wrap Application Multi-Layer Multi-Layer Comp - Left ($) Comp - Left ($) -Compression Wrap Treatment Response Procedure Procedure Procedure Tolerated Well Tolerated Well Tolerated Well Pain Scale: 0-10 Numeric Is Patient Pain Free? Yes Yes Yes WC - Visit Discharge Discharge Condition Stable Stable Stable Ambulatory Status Wheelchair Wheelchair Wheelchair Transportation Private Auto Private Auto Private Auto Accompanied by Clinical Summary of Care Provided Yes Facility Type Home Health Orders Sent Yes Assessment/Plan Assessment/Plan (1) Non-healing wound of right upper extremity: CODE(S): S41.101A - Unspecified open wound of right upper arm, initial encounter (2) Type 2 diabetes mellitus with diabetic polyneuropathy: CODE(S): E11.42 - Type 2 diabetes mellitus with diabetic polyneuropathy QUALIFIERS: Diabetes mellitus mcc insulin use: with buttermaker continuous churn use Qualified Code(s): E11.42 - Type 2 diabetes mellitus with diabetic polyneuropathy; Z79.4 - snf (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 of insulin PLAN: Plan Patient evaluated at the wound healing center. Wound care - Right proximal forearm wound is healed. Massage the area a couple times per day with lotion to help soften the scarring. He sees Dr. Spann for his foot ulcer care. Follow up as needed.
== END 2024-01-05 23:59 | disposition home or self-care (01) ==
LOC: WC 12:45
PROVIDERS: PCP Internal Medicine; Referring Provider Podiatrist Foot & Ankle Surgery; Visit Provider Podiatrist Foot & Ankle Surgery
DX: E11.621 Type 2 diabetes mellitus with foot ulcer (principal); L97.422 Non-pressure chronic ulcer of left heel and midfoot with fat layer exposed; I48.91 Unspecified atrial fibrillation; E11.42 Type 2 diabetes mellitus with diabetic polyneuropathy; S51.811A Laceration without foreign body of right forearm, initial encounter; W01.198A Fall on same level from slipping, tripping and stumbling with subsequent striking against other object, initial encounter; S90.822S Blister (nonthermal), left foot, sequela; X58.XXXS Exposure to other specified factors, sequela; G47.00 Insomnia, unspecified; I89.0 Lymphedema, not elsewhere classified; I87.2 Venous insufficiency (chronic) (peripheral); R60.0 Localized edema; I10 Essential (primary) hypertension; E78.5 Hyperlipidemia, unspecified; H54.7 Unspecified visual loss; Z79.01 Long term (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 of anticoagulants; Z79.899 Other long term (current) drug therapy
CPT/HCPCS: 11042; 29581; 99212; 99213; G0463

== ENCOUNTER 2024-01-18 12:53 | Outpatient (RCR) | payer MEDICARE, OTHER, SELFPAY ==
[2024-01-06 00:45] VITALS: BP 146/75; PULSE 63; RESP 18; TEMP 35.9
[2024-01-18 12:52] VITALS: BP 150/84; PULSE 72; RESP 16; TEMP 36.4
--- NOTE | 2024-01-18 13:01 | PN.PCM_ITS ---
History of Present Illness Date of Service: 01/18/24 Chief Complaint: Right foot ulcer History of Wound: This 78-year-old male with significant PMHx of diabetes type II with peripheral polyneuropathy, atrial fibrillation, hyperlipidemia, HTN, blindness, insomnia, history of acute renal failure, retinitis pigmentosa, Kaposi sarcoma right foot, and history of venous insufficiency with multiple procedural interventions was seen for right and left foot ulcer. Does have confirmed venous insufficiency of the great saphenous vein bilateral with bilateral lower extremity edema and lymphedema. He denies N/V/F/chills. He sees Dr. Spann for his foot ulcer care. I was asked to see him today for his right proximal forearm non healing wound that occurred a couple weeks ago when he fell against a door frame. Progress of Wound: Patient's left heel wound is stable and has healed at this time. Only presents today with dry eschar. He denies any new open wounds or abrasions to left lower extremity. Blood sugar well-controlled. He is continue to wear compression wraps and pumping with his lymphedema pumps. Grateful for his care. Denies trauma. Denies constitutional symptoms. No other pedal complaints at this time. Subjective Subjective Mr. Renae is a 78-year-old diabetic male presenting to wound care center today follow-up evaluation of left heel ulceration status post incision and drainage with antibiotic bead application. Patient has been compliant with all dressing changes and notices great improvement to his wound. He states that he only has a dry scab on it today. His blood sugars well-controlled. His is continuing to wrap his legs as discussed. He is grateful for his care. Denies trauma. Denies constitutional symptoms. No other pedal complaints at this time. Objective Data Objective Data Vital Signs: Vital Signs Temp Pulse Resp BP 97.6 F L 72 16 150/84 H 01/18/24 12:52 01/18/24 12:52 01/18/24 12:52 01/18/24 12:52 Physical Exam Narrative Vascular: DP and PT pulse are palpable. CFT is brisk. +1 pitting edema appreciated bilateral lower extremity. No erythema to the left lower extremity. Neurological: Light touch is intact. Protective station is absent. Dermatological: Full-thickness ulceration appreciated to the left medial heel is now healed. Evidence of hyperkeratotic periwound. no erythema, probe to bone or sign of infection. Musculoskeletal: No pain on palpation to the left medial heel. No pain with calf compression bilateral. Debridement Note Debridement Note Post-Debridement Measurements and Additional Note: Post-Debridement Measurements/Treatment - Nurse 1 - General Ulcer Assessment Start: 01/18/24 12:52 Freq: Status: Active Protocol: LISETHEXDarrell Activity Type Activity Date Activity User E-sign Co-sign Detail Recorded Client Recorded Date Recorded By Document 01/18/24 12:52 AURELIO [id number] 01/18/24 12:55 CP 01/18/24 12:52 - Today's Visit Information Type of service Follow-up Visit (Physician/POWER REACTOR SUPERVISOR ) Arrival Mode Wheelchair Transfer Assistance Manual Transfer Assist (Other) 1 Patient Identification Verified (Name & Yes ) Safety Precautions Fall Prevention Vital Signs Temperature (97.8 F-99.1 F) 97.6 F L Temperature Source Temporal Pulse Rate (60-100) 72 Pulse Location Monitor Respiratory Rate (12-18) 16 Respiratory rate source Observation Blood Pressure (90/60-120/80) 150/84 H Blood Pressure Mean (mm Hg) 106 Source Monitor Position Sitting Blood Pressure Location Left Arm History Since Last Visit- (Skip if this is Patient's initial visit) Have you changed medications since your Yes last visit? Any new allergies or adverse reactions No Had a fall/change in ADL's that may No increase risk of falls Signs or symptoms of abuse and/or No neglect since last visit Have you been in the hospital since your No last visit? Has dressing in place as prescribed Yes Has compression in place as prescribed No Has offloadiing in place as prescribed N/A Pain Scale: 0-10 Numeric Is Patient Pain Free? Yes - Nurse 1 - General Ulcer Measurement Start: 01/18/24 12:52 Freq: Status: Active Protocol: Activity Type Activity Date Activity User E-sign Co-sign Detail Recorded Client Recorded Date Recorded By Document 01/18/24 12:52 CP [id number] 01/18/24 12:55 CP 01/18/24 12:52 Wound Center Nurse 1 #4- L MED HEEL post op -Current Size (cm) - Length 0.1 -Current Size (cm) - Width 0.1 -Current Size (cm) - Depth 0.1 -Total Square Cm 0.01 -Slough/Fibrin Yes -Necrosis Amt Large (67-100%) -Necrotic Tissue Type Eschar -Structure Exposed N/A -Texture (Hannah-wound Skin Appearance) No Abnormality -Moisture (Hannah-wound Skin Appearance) No Abnormality -Color (Hannah-wound Skin Appearance) No Abnormality -Temperature (Hannah-wound Skin No Abnormality Appearance) (Pt Warm) -Tenderness on Palpation (Hannah-wound No Skin Appearance) Left Calf (cm) 50.7 Left Ankle (cm) 31 WC - Nurse 2 - General Ulcer CM Notes Start: 01/18/24 12:52 Freq: Status: Active Protocol: Activity Type Activity Date Activity User E-sign Co-sign Detail Recorded Client Recorded Date Recorded By Document 01/18/24 12:58 AMPARO [id number] 01/18/24 12:59 AMPARO 01/18/24 12:58 Wound Center Nurse 2 #4- L MED HEEL post op -Correct Patient No -Correct Side, Site, Position No -Correct Procedure No -Procedure Performed No -Post Debridement (cm) - Length 0 -Post Debridement (cm) - Width 0 -Post Debridement (cm) - Depth 0 -Total Square (Post) (cm) 0 -Area of Debridement (cm) - Length 0 -Area of Debridement (cm) - Width 0 -Total Square (Area) (cm) 0 -Wound/Ulcer Outcome Healed- Epithelialized Pain Scale: 0-10 Numeric Is Patient Pain Free? Yes Assessment/Plan Assessment/Plan (1) Non-pressure chronic ulcer of other part of left foot with fat layer exposed: CODE(S): L97.522 - Non-pressure chronic ulcer of other part of left foot with fat layer exposed PLAN: Patient was examined and evaluated. All findings were discussed with the patient. All questions were answered to the patient's satisfaction. The patient is dry eschar to the medial aspect of the left heel was removed that shows evidence of a healed wound underneath. No need for further wound care at this time. The area was wiped clean and patted dry. Lotion was applied to left lower extremity. Followed by multilayer Kd bandage wrap. Educated the patient that he will need to reapply his CircAid's to the bilateral lower extremity and use his lymphedema pumps 2-3 times per day which she is understanding of. Patient continue strict blood sugar control. Patient will follow-up with Dr. Spann in private office as needed. He left the wound care center please with his visit.
--- NOTE | 2024-01-19 10:08 | WC ---
PHOTO 01/18/24 LEFT RADHA ANKLE
== END 2024-01-19 14:54 | disposition home or self-care (01) ==
LOC: WC 12:53
PROVIDERS: PCP Internal Medicine; Referring Provider Podiatrist Foot & Ankle Surgery; Visit Provider Podiatrist Foot & Ankle Surgery
DX: Z09 Encounter for follow-up examination after completed treatment for conditions other than malignant neoplasm (principal); I48.91 Unspecified atrial fibrillation; E11.42 Type 2 diabetes mellitus with diabetic polyneuropathy; I10 Essential (primary) hypertension; E78.5 Hyperlipidemia, unspecified; I89.0 Lymphedema, not elsewhere classified; G47.00 Insomnia, unspecified; I87.2 Venous insufficiency (chronic) (peripheral); R60.0 Localized edema; H54.7 Unspecified visual loss; Z79.01 Long term (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 of anticoagulants; Z79.899 Other long term (current) drug therapy
CPT/HCPCS: 99213; G0463

== ENCOUNTER → 2024-01-25 | Outpatient (CLI) | payer MEDICARE, OTHER, SELFPAY ==
[2024-01-25 17:12] LABS: Amphetamine Urine VISTA NEGATIVE (<1000 ng/mL); Barbiturate Urine VISTA NEGATIVE (< 200 ng/mL); Benzodiazepine Urine VISTA NEGATIVE (< 200 ng/mL); Cocaine Urine VISTA NEGATIVE (< 300 ng/mL); Ecstacy Urine VISTA NEGATIVE (< 500 ng/mL); Methadone Urine VISTA NEGATIVE (< 300 ng/mL); PCP Urine VISTA NEGATIVE (< 25 ng/mL); THC Urine VISTA NEGATIVE (< 50 ng/mL); Vista UDS pH Range 6
== END | disposition home or self-care (01) ==
LOC: LAB 16:25
PROVIDERS: PCP Internal Medicine; Referring Provider Anesthesiology Pain Medicine; Visit Provider Anesthesiology Pain Medicine
DX: F11.20 Opioid dependence, uncomplicated (principal)
CPT/HCPCS: 80307

== ENCOUNTER 2024-04-04 11:03 | Outpatient (RCR) | payer MEDICARE, OTHER, SELFPAY ==
[2024-04-04 11:34] VITALS: BP 144/64; PULSE 61; RESP 18; TEMP 36.5; BMI 37.3
--- NOTE | 2024-04-04 12:22 | HP.PCM_ITS ---
History of Present Illness Date of Service: 04/04/24 Chief Complaint: Right foot ulcer History of Wound: Chronic ulceration to the left heel and anterior right leg. Progress of Wound: Mr. Renae is a 78-year-old male seen at the wound care center today for follow-up evaluation of full-thickness wound to the medial aspect of the left heel as well as draining to the anterior right leg. Patient is well-known to my clinic and is following up for opening of his bilateral leg wounds. Patient has been using multilayer compression bandage. The states that that said been going on for approximately 3 weeks. He denies any trauma. He admits to his blood sugar not being controlled. Denies constitutional symptoms. No other pain complaints at this time. 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 Chronic anticoagulation Lymphedema, not elsewhere classified Anemia Cancer Current use of insulin Back pain due to injury Injury of head and neck History of stress test Rheumatic fever Wears hearing aid in both ears Blindness of both eyes Hearing loss, left Hearing loss, right Hypothyroidism Diabetes Chronic pain Former smoker Atrial fibrillation Hypertension DVT (deep venous thrombosis) History of diabetes mellitus History of atrial fibrillation Paroxysmal atrial fibrillation Renal insufficiency Retinitis pigmentosa Hypothyroidism Hyperlipidemia Insomnia GERD (gastroesophageal reflux disease) Legal blindness Osteoarthritis Essential hypertension Sepsis Chronic back pain UTI (urinary tract infection) Acute renal failure Type II diabetes mellitus Home Medications ?Medication ?Instructions ?Recorded ?Last Taken ?Type gabapentin 800 mg tablet 800 mg PO 4XD 08/21/13 10/25/14 04:00 History omeprazole 40 mg capsule,delayed 40 mg PO DAILY 08/21/13 10/25/14 04:00 History release atorvastatin 80 mg tablet 80 mg PO QHS 07/25/14 Unknown History finasteride 5 mg tablet 1 tab PO DAILY 01/23/20 Unknown History apixaban 5 mg tablet (Eliquis) 5 mg PO BID 07/02/20 Unknown History amlodipine 5 mg tablet 5 mg PO DAILY 03/30/23 Unknown History ondansetron 4 mg disintegrating 4 mg PO Q12H PRN nausea and 03/30/23 Unknown History tablet vomiting enalapril maleate 10 mg tablet 10 mg PO BID 08/29/23 Unknown History levothyroxine 25 mcg tablet mcg PO 08/29/23 Unknown History debzqsaj-syz-wfzcz acid 0.4 1 tab PO DAILY 08/29/23 Unknown History mg-lycopene 300 mcg-lutein 250 mcg tablet (Centrum Silver) cetirizine 10 mg tablet (24Hour 10 mg PO BID PRN allergy symptoms 10/20/23 Unknown History Allergy) vitamin E 800 unit capsule 800 unit PO DAILY 10/20/23 Unknown History furosemide 40 mg tablet (Lasix) 40 mg PO DAILY #30 tabs 10/26/23 Unknown Rx insulin glargine-yfgn 100 unit/mL 30 unit (0.3 mL) subcut BID #0 mL 10/26/23 Unknown Rx (3 mL) subcutaneous pen insulin lispro 100 unit/mL See Protocol subcut TIDAC #0 mL 10/26/23 Unknown Rx subcutaneous pen (Humalog KwikPen (U-100) Insulin) oxycodone 5 mg tablet 10 mg (2 x 5 mg) PO Q4H PRN PRN 10/26/23 Unknown Rx Pain Score 4-10 3 days #40 tabs piperacillin-tazobactam 3.375 gram 3.375 g IV Q8H 26 days 10/26/23 Unknown Rx intravenous solution vancomycin 1.25 gram intravenous 1.25 g IV Q24H 26 days 10/26/23 Unknown Rx solution Allergy/AdvReac Type Severity Reaction Status Date / Time Sulfa (Sulfonamide Allergy Shortness Verified 10/20/23 13:26 Antibiotics) of breath Gadolinium-MRI Contrast AdvReac Vomiting Verified 10/20/23 13:26 Medium (MRI) Family History Sister Cancer ovarian Mother CVA (cerebral vascular accident) Diabetes Father Cancer malignant melanona, bladder Brother Myocardial infarction Brother Myocardial infarction Brother Lung cancer Surgical History History of cholecystectomy (~10/2022) History of left heart catheterization (04/16/20) History of thumb surgery History of vein stripping History of carpal tunnel surgery of left wrist History of discectomy History of spinal fusion History of surgery on wrist History of elbow surgery History of arthroscopy of knee History of cataract extraction History of transurethral resection of prostate Social History household members: spouse and other details: nephew Smoking Status: Former smoker Tobacco: How many years used: 10 how long ago did patient quit smokin years ago alcohol intake: never substance use type: does not use caffeine: Yes Type: carbonated beverages Number of servings: 5 what type of physical activity do you participate in: none seatbelt use: always do you feel safe at home: Yes Vital Signs Vital Signs Vital Signs: 04/04/24 11:34 Temperature 97.7 F L Temperature Source Temporal Pulse Rate 61 Respiratory Rate 18 Blood Pressure 144/64 H Blood Pressure Mean 90 Blood Pressure Source Monitor Blood Pressure Position Sitting Blood Pressure Location Left Arm Oxygen Delivery Method Room Air Weight Weight: 124.738 kg Body Mass Index (BMI) 37.3 Physical Exam Narrative Vascular: DP and PT pulses are faintly palpable. CFT is brisk. Nonpitting edema appreciated to bilateral lower extremity. Skin temperature gradient warm to warm from proximal ankles to distal digit bilateral. Evidence of hemosiderin deposits bilateral. Neurological: Light touch intact. Protective station is diminished. Dermatological: Full-thickness ulceration to the left medial heel measuring 4.7 x 7.5 x 0.3 cm. Wound base is fibrogranular in nature. Blanchable erythema to periwound. No active drainage at this time. Full-thickness wound to the right anterior leg is stable with sanguinous crust. Excisional debridement down to including subcutaneous tissue with a number 5 mm dermal curette to the left medial heel without incident. Predebridement measurement was eschar. Postdebridement measurement is 4.7 x 7.5 x 0.3 cm. Musculoskeletal: Muscle strength is 5 out of 5 in all quadrants bilateral. No pain on palpation to full-thickness wound on the left leg or right anterior leg. No pain with calf pressure. Debridement Note Debridement Note Debridement Free Text: Excisional debridement down to including subcutaneous tissue with a number 5 mm dermal curette to the left medial heel without incident. Predebridement measurement was eschar. Postdebridement measurement is 4.7 x 7.5 x 0.3 cm. Post-Debridement Measurements and Additional Note: Post-Debridement Measurements/Treatment WC - Nurse 1 - General Ulcer Assessment Start: 04/04/24 11:34 Freq: Status: Active Protocol: WC.LOWEXT Activity Type Activity Date Activity User E-sign Co-sign Detail Recorded Client Recorded Date Recorded By Document 04/04/24 11:34 [id number] 04/04/24 11:41 04/04/24 11:34 - Today's Visit Information Type of service Initial Visit Arrival Mode Cane,Wheelchair Patient Identification Verified (Name & Yes ) Height and Weight Height 6 ft Weight 124.738 kg Weight in Pounds 275.0 lbs Weight Measurement Method Estimated by Patient Body Mass Index (BMI) 37.3 BMI Classification Obese BSA - [place] 2.44 Vital Signs Temperature (97.8 F-99.1 F) 97.7 F L Temperature Source Temporal Pulse Rate (60-100) 61 Pulse Location Monitor Respiratory Rate (12-18) 18 Respiratory rate source Observation Oxygen Delivery Method Room Air Blood Pressure (90/60-120/80) 144/64 H Blood Pressure Mean 90 Source Monitor Position Sitting Blood Pressure Location Left Arm History Since Last Visit- (Skip if this is Patient's initial visit) Has dressing in place as prescribed Yes Has compression in place as prescribed Yes Has offloadiing in place as prescribed N/A Experienced any changes in pain level or No management Left Footwear Diabetic Shoe Right Footwear Diabetic Shoe Pain Scale: 0-10 Numeric Is Patient Pain Free? No Back/legs -Intensity 6 -Duration (hours) Chronic -Pain Behavior No Change in Behavior -Alleviating Factors/Interventions Medication,Will continue to monitor - Nurse 1 - General Ulcer Measurement Start: 04/04/24 11:34 Freq: Status: Active Protocol: Activity Type Activity Date Activity User E-sign Co-sign Detail Recorded Client Recorded Date Recorded By Document 04/04/24 11:34 [id number] 04/04/24 11:41 04/04/24 11:34 Wound Center Nurse 1 #4- L MED HEEL -Combined with other wound No -Current Size (cm) - Length 4 -Current Size (cm) - Width 9 -Current Size (cm) - Depth 0.1 -Total Square Cm 36 -Date of Last Picture (Recall this 04/04/24 field) -Photo Taken Yes -Epithelialization Small 1-33% -Tunneling No -Undermining/Tunneling No -Circular Undermining No -Exudate Amt Small -Exudate Type Serosanguineous -Wound Margin Distinct, Outline Attached -Granulation Amt Small (1-33%) -Slough/Fibrin Yes -Necrosis Amt Large (67-100%) -Necrotic Tissue Type Adherent Slough -Texture (Hannah-wound Skin Appearance) Assessed -Moisture (Hannah-wound Skin Appearance) Assessed -Color (Hannah-wound Skin Appearance) Assessed -Temperature (Hannah-wound Skin No Abnormality Appearance) (Pt Warm) -Ulcer Cleansing Soap and Water -Foul Odor after Cleansing No -Anesthetic Used 5% Lidocaine Gel Lower Limb Edema Present Yes Right Calf (cm) 48.3 Right Ankle (cm) 33.5 Left Calf (cm) 46.5 Left Ankle (cm) 34.0 WC - Nurse 2 - General Ulcer CM Notes Start: 04/04/24 11:34 Freq: Status: Active Protocol: Activity Type Activity Date Activity User E-sign Co-sign Detail Recorded Client Recorded Date Recorded By Document 04/04/24 11:59 [id number] 04/04/24 12:04 AMPARO 04/04/24 11:59 Wound Center Nurse 2 #4- L MED HEEL -Time 12:00 -Correct Patient Yes -Correct Side, Site, Position Yes -Correct Procedure Yes -Procedure Performed Yes -Type of Procedure Debridement -Clinical Debridement Subcutaneous -Tissue Removed Subcutaneous -Post Debridement (cm) - Length 4.7 -Post Debridement (cm) - Width 7.5 -Post Debridement (cm) - Depth 0.3 -Total Square (Post) (cm) 35.25 -Area of Debridement (cm) - Length 4.7 -Area of Debridement (cm) - Width 7.5 -Total Square (Area) (cm) 35.25 -Tunneling No -Undermining/Tunneling No -Circular Undermining No -Wound/Ulcer Outcome Not Healed -Ulcer Cleansing Rinsed/ Irrigated with Saline -Foul Odor after Cleansing No -Bioengineered Tissue No -Bleeding Controlled with Pressure -Treatment Response Procedure Tolerated Well -Offloading No -Debridement - Subq, 1st 20sq cm Yes -Debridement, SubQ, ea addt'l 20sq cm 1 or part thereof Pain Scale: 0-10 Numeric Is Patient Pain Free? Yes Assessment/Plan Assessment/Plan (1) Non-pressure chronic ulcer of left heel and midfoot with fat layer exposed: CODE(S): L97.422 - Non-pressure chronic ulcer of left heel and midfoot with fat layer exposed PLAN: Patient was examined and evaluated. All findings were discussed with the patient. All questions were answered to the patient satisfaction. Excisional debridement down to including subcutaneous tissue with a number 5 mm dermal curette to the left medial heel without incident. Predebridement measurement was eschar. Postdebridement measurement is 4.7 x 7.5 x 0.3 cm. Bilateral lower extremities are clean and pat dry. Silver alginate was applied to the full-thickness wound to the left foot followed by dry sterile dressing on the double Tubigrip. Triple antibiotic and nonadherent gauze with dry sterile dressing was applied to the right leg followed by double layer Tubigrip. Culture was taken of the full-thickness wound and antibiotics will prescribe as needed. Educated the patient continue to rest and elevate his legs whenever he can. Educated the patient on strict blood sugar control. Will begin ordering dressing supplies so the patient can do every other day dressing changes. Patient will follow-up in 1 week at the wound care center for evaluation. (2) Non-pressure chronic ulcer of other part of right lower leg with fat layer exposed: CODE(S): L97.812 - Non-pressure chronic ulcer of other part of right lower leg with fat layer exposed (3) Peripheral vascular disease: CODE(S): I73.9 - Peripheral vascular disease, unspecified (4) Type 2 diabetes mellitus with diabetic polyneuropathy: CODE(S): E11.42 - Type 2 diabetes mellitus with diabetic polyneuropathy QUALIFIERS: Diabetes mellitus long term care pharmacist insulin use: with long term care pharmacist use Qualified Code(s): E11.42 - Type 2 diabetes mellitus with diabetic polyneuropathy; Z79.4 - shelter (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 of insulin
--- NOTE | 2024-04-04 13:56 | WC ---
PHOTO 04/04/24 LEFT MEDIAL ANKLE
--- NOTE | 2024-04-04 13:57 | WC ---
PHOTO 04/04/24 LEFT RADHA ANKLE
== END 2024-04-06 23:59 | disposition home or self-care (01) ==
LOC: WC 11:03
PROVIDERS: PCP Internal Medicine; Referring Provider Podiatrist Foot & Ankle Surgery; Visit Provider Podiatrist Foot & Ankle Surgery
DX: E11.621 Type 2 diabetes mellitus with foot ulcer (principal); L97.422 Non-pressure chronic ulcer of left heel and midfoot with fat layer exposed; I48.0 Paroxysmal atrial fibrillation; Z79.4 Long term (current) use of insulin; E11.42 Type 2 diabetes mellitus with diabetic polyneuropathy; E11.51 Type 2 diabetes mellitus with diabetic peripheral angiopathy without gangrene; K21.9 Gastro-esophageal reflux disease without esophagitis; G89.29 Other chronic pain; I10 Essential (primary) hypertension; E78.5 Hyperlipidemia, unspecified; Z79.01 Long term (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 of anticoagulants; Z79.890 Hormone replacement therapy; Z79.899 Other long term (current) drug therapy; Z87.891 Personal history of nicotine dependence
CPT/HCPCS: 11042; 11045; 99214; G0463

== ENCOUNTER 2024-05-02 11:15 | Outpatient (RCR) | payer MEDICARE, OTHER, SELFPAY ==
[2024-04-07 01:21] VITALS: BP 144/64; PULSE 61; RESP 18; TEMP 36.5; BMI 37.3
[2024-04-11 11:04] VITALS: BP 187/74; PULSE 62; RESP 18; TEMP 36.1; BMI 37.3
--- NOTE | 2024-04-11 14:05 | PN.PCM_ITS ---
History of Present Illness Date of Service: 04/11/24 Chief Complaint: Right foot ulcer History of Wound: Chronic ulceration to the left heel and anterior right leg. Progress of Wound: Left heel wound is stable but shows evidence of drainage. Right anterior leg wound is stable. Subjective Subjective Mr. Renae is a 78-year-old diabetic male with history of peripheral vascular disease. He is presenting the wound care center today for follow-up evaluation of left heel wound and anterior aspect leg wound of the right lower extremity. He has been compliant with dressing changes. He states that he is having trouble bending his right knee but is not seek medical help from orthopedics at this time. Patient's blood sugars well-controlled. Denies trauma. Denies constitutional symptoms. No other pedal complaints at this time. Objective Data Objective Data Vital Signs: Vital Signs Temp Pulse Resp BP O2 Del Method 96.9 F L 62 18 187/74 H Room Air 04/11/24 11:04 04/11/24 11:04 04/11/24 11:04 04/11/24 11:04 04/11/24 11:04 Oxygen Delivery Method Room Air Weight: 124.738 kg Body Mass Index (BMI) 37.3 Physical Exam Narrative Vascular: DP and PT pulses are faintly palpable. CFT is brisk. Nonpitting edema appreciated to bilateral lower extremity. Skin temperature gradient warm to warm from proximal ankles to distal digit bilateral. Evidence of hemosiderin deposits bilateral. Neurological: Light touch intact. Protective station is diminished. Dermatological: Full-thickness ulceration to the left medial heel measuring 6.5 x 3.7 x 0.3 cm. Wound base is fibrogranular in nature. Blanchable erythema to periwound. No active drainage at this time. Full-thickness wound to the right anterior leg measuring 1.5 x 1.1 x 0.2 cm. Excisional debridement down to including subcutaneous tissue with a number 5 mm dermal curette to the left medial heel without incident. Predebridement measurement was 6.0 x 3.5 x 0.1 cm. Postdebridement measurement is 6.5 x 3.7 x 0.3 cm. Excisional debridement down to including subcutaneous tissue with a number 5 mm dermal curette to the right anterior leg full-thickness wound without incident. Predebridement measurement was bullae. Postdebridement measurement was 1.5 x 1.1 x 0.2 cm. Musculoskeletal: Muscle strength is 5 out of 5 in all quadrants bilateral. No pain on palpation to full-thickness wound on the left leg or right anterior leg. No pain with calf pressure. Debridement Note Debridement Note Debridement Free Text: Excisional debridement down to including subcutaneous tissue with a number 5 mm dermal curette to the left medial heel without incident. Predebridement measurement was 6.0 x 3.5 x 0.1 cm. Postdebridement measurement is 6.5 x 3.7 x 0.3 cm. Excisional debridement down to including subcutaneous tissue with a number 5 mm dermal curette to the right anterior leg full-thickness wound without incident. Predebridement measurement was bullae. Postdebridement measurement was 1.5 x 1.1 x 0.2 cm. 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 ) Arrival Mode Wheelchair Accompanied by Patient Identification Verified (Name & Yes ) Height and Weight Body Mass Index (BMI) 37.3 BMI Classification Obese Vital Signs Temperature (97.8 F-99.1 F) 96.9 F L Temperature Source Temporal Pulse Rate (60-100) 62 Pulse Location Monitor Respiratory Rate (12-18) 18 Respiratory rate source Observation Oxygen Delivery Method Room Air Blood Pressure (90/60-120/80) 187/74 H Blood Pressure Mean (mm Hg) 111 Source Monitor Position Semi-Fowlers Blood Pressure Location Left Forearm History Since Last Visit- (Skip if this is Patient's initial visit) Have you changed medications since your No last visit? Any new allergies or adverse reactions No Had a fall/change in ADL's that may No increase risk of falls Signs or symptoms of abuse and/or No neglect since last visit Have you been in the hospital since your No last visit? Has dressing in place as prescribed Yes Has compression in place as prescribed Yes Has offloadiing in place as prescribed N/A Experienced any changes in pain level or No management Left Footwear Regular Shoe Right Footwear Regular Shoe Pain Scale: 0-10 Numeric Is Patient Pain Free? No WC - Nurse 1 - General Ulcer Measurement Start: 04/11/24 11:02 Freq: Status: Active Protocol: Activity Type Activity Date Activity User E-sign Co-sign Detail Recorded Client Recorded Date Recorded By Document 04/11/24 11:04 [id number] 04/11/24 11:12 KW 04/11/24 11:04 Wound Center Nurse 1 7 rt price cluster -Current Size (cm) - Length 0.1 -Current Size (cm) - Width 0.1 -Current Size (cm) - Depth 0.1 -Total Square Cm 0.01 -Exudate Amt Medium -Exudate Type Serosanguineous -Wound Margin Distinct, Outline Attached -Granulation Amt Large (67-100%) -Granulation Quality Red -Texture (Hannah-wound Skin Appearance) Assessed -Moisture (Hannah-wound Skin Appearance) Assessed -Color (Hannah-wound Skin Appearance) Assessed, Erythema -Temperature (Hannah-wound Skin No Abnormality Appearance) (Pt Warm) -Tenderness on Palpation (Hannah-wound No Skin Appearance) -Ulcer Cleansing Rinsed/ Irrigated with Saline -Foul Odor after Cleansing No -Anesthetic Used 5% Lidocaine Gel -Wound Comment(s) blisters #4- L MED HEEL -Current Size (cm) - Length 4 -Current Size (cm) - Width 5.5 -Current Size (cm) - Depth 0.3 -Total Square Cm 22.0 -Exudate Amt Medium -Exudate Type Serosanguineous -Wound Margin Distinct, Outline Attached -Granulation Amt Large (67-100%) -Granulation Quality Red -Necrosis Amt Small (1-33%) -Necrotic Tissue Type Adherent Slough -Texture (Hannah-wound Skin Appearance) Assessed,Callus -Moisture (Hannah-wound Skin Appearance) Maceration -Color (Hannah-wound Skin Appearance) Assessed -Temperature (Hannah-wound Skin No Abnormality Appearance) (Pt Warm) -Tenderness on Palpation (Hannah-wound No Skin Appearance) -Ulcer Cleansing Rinsed/ Irrigated with Saline -Foul Odor after Cleansing No -Anesthetic Used 5% Lidocaine Gel WC - Nurse 2 - General Ulcer CM Notes Start: 04/11/24 11:02 Freq: Status: Active Protocol: Activity Type Activity Date Activity User E-sign Co-sign Detail Recorded Client Recorded Date Recorded By Document 04/11/24 11:29 AMPARO [id number] 04/11/24 11:32 AMPARO Edit Result 04/11/24 11:29 JF (1) [id number] 04/11/24 11:34 JF (1) 7 rt price cluster - Time => 11:34 - Correct Patient No => Yes - Correct Side, Site, Position No => Yes - Correct Procedure No => Yes - Procedure Performed No => Yes - Type of Procedure => Debridement - Clinical Debridement => Subcutaneous - Tissue Removed => Subcutaneous - Post Debridement (cm) - Length => 1.5 - Post Debridement (cm) - Width => 1.1 - Post Debridement (cm) - Depth => 0.2 - Total Square (Post) (cm) => 1.65 - Area of Debridement (cm) - Length => 1.5 - Area of Debridement (cm) - Width => 1.1 - Total Square (Area) (cm) => 1.65 - Tunneling => No - Undermining/Tunneling => No - Ulcer Cleansing => Rinsed/Irrigated => with Saline - Foul Odor after Cleansing => No - Bioengineered Tissue => No - Bleeding Controlled with => Pressure - Treatment Response => Procedure => Tolerated Well - Offloading => No - Debridement - Subq, 1st 20sq cm => No 04/11/24 11:29 Wound Center Nurse 2 7 rt price cluster -Time 11:34 -Correct Patient Yes -Correct Side, Site, Position Yes -Correct Procedure Yes -Procedure Performed Yes -Type of Procedure Debridement -Clinical Debridement Subcutaneous -Tissue Removed Subcutaneous -Post Debridement (cm) - Length 1.5 -Post Debridement (cm) - Width 1.1 -Post Debridement (cm) - Depth 0.2 -Total Square (Post) (cm) 1.65 -Area of Debridement (cm) - Length 1.5 -Area of Debridement (cm) - Width 1.1 -Total Square (Area) (cm) 1.65 -Tunneling No -Undermining/Tunneling No -Wound/Ulcer Outcome Not Healed -Ulcer Cleansing Rinsed/ Irrigated with Saline -Foul Odor after Cleansing No -Bioengineered Tissue No -Bleeding Controlled with Pressure -Treatment Response Procedure Tolerated Well -Offloading No -Debridement - Subq, 1st 20sq cm No #4- L MED HEEL -Time 11:30 -Correct Patient Yes -Correct Side, Site, Position Yes -Correct Procedure Yes -Procedure Performed Yes -Type of Procedure Debridement -Clinical Debridement Subcutaneous -Tissue Removed Subcutaneous -Post Debridement (cm) - Length 6.5 -Post Debridement (cm) - Width 3.7 -Post Debridement (cm) - Depth 0.3 -Total Square (Post) (cm) 24.05 -Area of Debridement (cm) - Length 6.5 -Area of Debridement (cm) - Width 3.7 -Total Square (Area) (cm) 24.05 -Tunneling No -Undermining/Tunneling No -Circular Undermining No -Wound/Ulcer Outcome Not Healed -Ulcer Cleansing Rinsed/ Irrigated with Saline -Foul Odor after Cleansing No -Bioengineered Tissue No -Bleeding Controlled with Pressure -Treatment Response Procedure Tolerated Well -Offloading No -Debridement - Subq, 1st 20sq cm Yes -Debridement, SubQ, ea addt'l 20sq cm 1 or part thereof Pain Scale: 0-10 Numeric Is Patient Pain Free? Yes - Nurse 3 - General Ulcer D/C NN Start: 04/11/24 11:02 Freq: Status: Active Protocol: Activity Type Activity Date Activity User E-sign Co-sign Detail Recorded Client Recorded Date Recorded By Document 04/11/24 11:46 KW [id number] 04/11/24 11:47 KW 04/11/24 11:46 Wound Care Center Nurse 3 7 rt price cluster -Primary Dressing Applied Silvercel -Primary Dressing Covered/Secured with Dry Gauze & Roll Gauze, Secured with Tape -Silvercel 1 #4- L MED HEEL -Other Dressing silver -Primary Dressing Covered/Secured with Dry Gauze & Roll Gauze, Secured with Tape bilat LE -Compression Wrap Kd Wrap -Other 4 Pain Scale: 0-10 Numeric Is Patient Pain Free? Yes - Visit Discharge Discharge Condition Stable Ambulatory Status Wheelchair Transportation Private Auto Medication Reconcilliation completed & No provided to patient/care provider Clinical Summary of Care Provided Yes Assessment/Plan Assessment/Plan (1) Non-pressure chronic ulcer of other part of right lower leg with fat layer exposed: CODE(S): L97.812 - Non-pressure chronic ulcer of other part of right lower leg with fat layer exposed PLAN: Patient was examined and evaluated. All findings were discussed with the patient. All questions were answered to the patient's satisfaction. Excisional debridement down to including subcutaneous tissue with a number 5 mm dermal curette to the left medial heel without incident. Predebridement measurement was 6.0 x 3.5 x 0.1 cm. Postdebridement measurement is 6.5 x 3.7 x 0.3 cm. Excisional debridement down to including subcutaneous tissue with a number 5 mm dermal curette to the right anterior leg full-thickness wound without incident. Predebridement measurement was bullae. Postdebridement measurement was 1.5 x 1.1 x 0.2 cm. The bilateral lower extremities are like cleaned and patted dry. Aquacel Ag was applied to all wounds followed by dry sterile dressing and mul tilayer compression bandage to the bilateral lower extremity. Will begin authorization for amniotic skin graft substitutes to the right leg. The cultures returned and show evidence of Pseudomonas growth infection. The patient will be placed on ciprofloxacin 750 mg twice daily for 2 weeks. Since the patient is having decreased range of motion to the right knee I educated him and his to follow-up with with the orthopedic for further evaluation which they were understanding of. Follow-up at the wound care center with Dr. Spann in 1 week. (2) Non-pressure chronic ulcer of left heel and midfoot with fat layer exposed: CODE(S): L97.422 - Non-pressure chronic ulcer of left heel and midfoot with fat layer exposed (3) Peripheral vascular disease: CODE(S): I73.9 - Peripheral vascular disease, unspecified
[2024-04-18 11:28] VITALS: BP 135/57; PULSE 70; RESP 18; TEMP 36.6; BMI 37.3
--- NOTE | 2024-04-18 14:37 | PCM.WC.PN ---
History of Present Illness Date of Service: 04/18/24 Chief Complaint: Right foot ulcer History of Wound: Chronic ulceration to the left heel and anterior right leg. Progress of Wound: Left heel wound is stable but shows evidence of drainage. Right anterior leg wound is stable. Subjective Subjective Mr. Renae is a 78-year-old diabetic male presenting to wound care center today for follow-up evaluation of right anterior leg wound and full-thickness wound to the left heel. He has been compliant with dressing changes. His noticed improvement to his swelling with wraps. He is taking his antibiotic as prescribed. Denies trauma. Denies constitutional symptoms. No other pedal complaints at this time. Objective Data Objective Data Vital Signs: Vital Signs Temp Pulse Resp BP O2 Del Method 97.9 F 70 18 135/57 H Room Air 04/18/24 11:28 04/18/24 11:28 04/18/24 11:28 04/18/24 11:28 04/11/24 11:04 Oxygen Delivery Method Room Air Weight: 124.738 kg Body Mass Index (BMI) 37.3 Physical Exam Narrative Vascular: DP and PT pulses are faintly palpable. CFT is brisk. Nonpitting edema appreciated to bilateral lower extremity. Skin temperature gradient warm to warm from proximal ankles to distal digit bilateral. Evidence of hemosiderin deposits bilateral. Neurological: Light touch intact. Protective station is diminished. Dermatological: Full-thickness ulceration to the left medial heel measuring 6.5 x 3.1 x 0.2 cm. Wound base is fibrogranular in nature. Blanchable erythema to periwound. No active drainage at this time. Full-thickness wound to the right anterior leg measuring 2.2 x 1.6 x 0.1 cm. Excisional debridement down to including subcutaneous tissue with a number 5 mm dermal curette to the left medial heel without incident. Predebridement measurement was 5.5 x 2.6 x 0.1 cm. Postdebridement measurement is 6.5 x 3.1 x 0.2 cm. Excisional debridement down to including subcutaneous tissue with a number 5 mm dermal curette to the right anterior leg full-thickness wound without incident. Predebridement measurement was callus. Postdebridement measurement was 2.2 x 1.6 x 0.1 cm. EpiFix 2.0 x 2.0 mm graft was applied to the right full-thickness ulceration with 100% use. First application. The graft site was free and clear of any infection. The wound/skin graft substitute was dressed with nonadherent bandage secured in place with Steri-Strips followed by bolster dressing as well as a double layer Tubigrip. Musculoskeletal: Muscle strength is 5 out of 5 in all quadrants bilateral. No pain on palpation to full-thickness wound on the left leg or right anterior leg. No pain with calf pressure. Debridement Note Debridement Note Debridement Free Text: Excisional debridement down to including subcutaneous tissue with a number 5 mm dermal curette to the left medial heel without incident. Predebridement measurement was 5.5 x 2.6 x 0.1 cm. Postdebridement measurement is 6.5 x 3.1 x 0.2 cm. Excisional debridement down to including subcutaneous tissue with a number 5 mm dermal curette to the right anterior leg full-thickness wound without incident. Predebridement measurement was callus. Postdebridement measurement was 2.2 x 1.6 x 0.1 cm. EpiFix 2.0 x 2.0 mm graft was applied to the right full-thickness ulceration with 100% use. First application. The graft site was free and clear of any infection. The wound/skin graft substitute was dressed with nonadherent bandage secured in place with Steri-Strips followed by bolster dressing as well as a double layer Tubigrip. Post-Debridement Measurements and Additional Note: Post-Debridement Measurements/Treatment - Nurse 1 - General Ulcer Assessment Start: 04/11/24 11:02 Freq: Status: Active Protocol: JORGE Activity Type Activity Date Activity User E-sign Co-sign Detail Recorded Client Recorded Date Recorded By Document 04/11/24 11:04 KW [id number] 04/11/24 11:12 KW Document 04/18/24 11:28 DL [id number] 04/18/24 11:43 DL 04/11/24 04/18/24 11:04 11:28 - Today's Visit Information Type of service Follow-up Visit Follow-up Visit (Physician/HOME OFFICE CLAIMS EXAMINER (Physician/HOME OFFICE CLAIMS EXAMINER ) ) Arrival Mode Wheelchair Ambulatory, Wheelchair Transfer Assistance Manual Transfer Assist (Other) x1 Accompanied by Patient Identification Verified (Name & Yes Yes ) Patient Requires Transmission-Based No Precautions Height and Weight Body Mass Index (BMI) 37.3 37.3 BMI Classification Obese Obese Vital Signs Temperature (97.8 F-99.1 F) 96.9 F L 97.9 F Temperature Source Temporal Temporal Pulse Rate (60-100) 62 70 Pulse Location Monitor Monitor Respiratory Rate (12-18) 18 18 Respiratory rate source Observation Observation Oxygen Delivery Method Room Air Blood Pressure (90/60-120/80) 187/74 H 135/57 H Blood Pressure Mean (mm Hg) 111 83 Source Monitor Monitor Position Semi-Fowlers Blood Pressure Location Left Forearm History Since Last Visit- (Skip if this is Patient's initial visit) Have you changed medications since your No No last visit? Any new allergies or adverse reactions No No Had a fall/change in ADL's that may No No increase risk of falls Signs or symptoms of abuse and/or No No neglect since last visit Have you been in the hospital since your No No last visit? Has dressing in place as prescribed Yes Yes Has compression in place as prescribed Yes Yes Has offloadiing in place as prescribed N/A Yes Experienced any changes in pain level or No No management Left Footwear Regular Shoe Right Footwear Regular Shoe Pain Scale: 0-10 Numeric Is Patient Pain Free? No Yes WC - Nurse 1 - General Ulcer Measurement Start: 04/11/24 11:02 Freq: Status: Active Protocol: Activity Type Activity Date Activity User E-sign Co-sign Detail Recorded Client Recorded Date Recorded By Document 04/11/24 11:04 KW [id number] 04/11/24 11:12 KW Document 04/18/24 11:28 DL [id number] 04/18/24 11:43 DL 04/11/24 04/18/24 11:04 11:28 Wound Center Nurse 1 7 rt price cluster -Current Size (cm) - Length 0.1 0.1 -Current Size (cm) - Width 0.1 0.1 -Current Size (cm) - Depth 0.1 0.1 -Total Square Cm 0.01 0.01 -Exudate Amt Medium Small -Exudate Type Serosanguineous Serosanguineous -Wound Margin Distinct, Distinct, Outline Outline Attached Attached -Granulation Amt Large (67-100%) Large (67-100%) -Granulation Quality Red Odon -Necrosis Amt None Present (0 %) -Structure Exposed N/A -Texture (Hannah-wound Skin Appearance) Assessed Scarring -Moisture (Hannah-wound Skin Appearance) Assessed Dry/Scaly -Color (Hannah-wound Skin Appearance) Assessed, Hemosiderin Erythema Staining -Temperature (Hannah-wound Skin No Abnormality No Abnormality Appearance) (Pt Warm) (Pt Warm) -Tenderness on Palpation (Hannah-wound No Skin Appearance) -Ulcer Cleansing Rinsed/ Soap and Water Irrigated with Saline -Foul Odor after Cleansing No No -Anesthetic Used 5% Lidocaine 4% Lidocaine Gel Solution -Wound Comment(s) blisters #4- L MED HEEL -Current Size (cm) - Length 4 4 -Current Size (cm) - Width 5.5 4.5 -Current Size (cm) - Depth 0.3 0.1 -Total Square Cm 22.0 18.0 -Exudate Amt Medium Medium -Exudate Type Serosanguineous Serosanguineous -Wound Margin Distinct, Distinct, Outline Outline Attached Attached -Granulation Amt Large (67-100%) Medium (34-66%) -Granulation Quality Red Odon,Red -Necrosis Amt Small (1-33%) Medium (34-66%) -Necrotic Tissue Type Adherent Slough Eschar -Structure Exposed N/A -Texture (Hannah-wound Skin Appearance) Assessed,Callus Localized Edema ,Scarring -Moisture (Hannah-wound Skin Appearance) Maceration Maceration -Color (Hannah-wound Skin Appearance) Assessed No Abnormality -Temperature (Hannah-wound Skin No Abnormality No Abnormality Appearance) (Pt Warm) (Pt Warm) -Tenderness on Palpation (Hannah-wound No Skin Appearance) -Ulcer Cleansing Rinsed/ Soap and Water Irrigated with Saline -Foul Odor after Cleansing No No -Anesthetic Used 5% Lidocaine 4% Lidocaine Gel Solution Right Calf (cm) 46.5 Right Ankle (cm) 30 Left Calf (cm) 45.5 Left Ankle (cm) 33.5 WC - Nurse 2 - General Ulcer CM Notes Start: 04/11/24 11:02 Freq: Status: Active Protocol: Activity Type Activity Date Activity User E-sign Co-sign Detail Recorded Client Recorded Date Recorded By Document 04/11/24 11:29 AMPARO [id number] 04/11/24 11:32 JF Edit Result 04/11/24 11:29 JF (1) [id number] 04/11/24 11:34 JF Document 04/18/24 11:48 [facility] [id number] 04/18/24 12:01 [facility] (1) 7 rt price cluster - Time => 11:34 - Correct Patient No => Yes - Correct Side, Site, Position No => Yes - Correct Procedure No => Yes - Procedure Performed No => Yes - Type of Procedure => Debridement - Clinical Debridement => Subcutaneous - Tissue Removed => Subcutaneous - Post Debridement (cm) - Length => 1.5 - Post Debridement (cm) - Width => 1.1 - Post Debridement (cm) - Depth => 0.2 - Total Square (Post) (cm) => 1.65 - Area of Debridement (cm) - Length => 1.5 - Area of Debridement (cm) - Width => 1.1 - Total Square (Area) (cm) => 1.65 - Tunneling => No - Undermining/Tunneling => No - Ulcer Cleansing => Rinsed/Irrigated => with Saline - Foul Odor after Cleansing => No - Bioengineered Tissue => No - Bleeding Controlled with => Pressure - Treatment Response => Procedure => Tolerated Well - Offloading => No - Debridement - Subq, 1st 20sq cm => No 04/11/24 04/18/24 11:29 11:48 Wound Center Nurse 2 7 rt price cluster -Time 11:34 11:48 -Correct Patient Yes Yes -Correct Side, Site, Position Yes Yes -Correct Procedure Yes Yes -Procedure Performed Yes Yes -Type of Procedure Debridement Debridement -Clinical Debridement Subcutaneous Subcutaneous -Tissue Removed Subcutaneous Subcutaneous -Post Debridement (cm) - Length 1.5 2.2 -Post Debridement (cm) - Width 1.1 1.6 -Post Debridement (cm) - Depth 0.2 0.1 -Total Square (Post) (cm) 1.65 3.52 -Area of Debridement (cm) - Length 1.5 2.2 -Area of Debridement (cm) - Width 1.1 1.6 -Total Square (Area) (cm) 1.65 3.52 -Tunneling No No -Undermining/Tunneling No No -Circular Undermining No -Wound/Ulcer Outcome Not Healed Not Healed -Ulcer Cleansing Rinsed/ Rinsed/ Irrigated with Irrigated with Saline Saline -Foul Odor after Cleansing No Yes -Bioengineered Tissue No No -Type of Bioengineered Tissue Epifix -Expiration Date 12/05/28 -Product Lot Number [id number] -Percent Used 100 -Lot number of Saline Used [id number] -Bleeding Controlled with Pressure Pressure -Treatment Response Procedure Procedure Tolerated Well Tolerated Well -Offloading No -Debridement - Subq, 1st 20sq cm No No -Apply Skin Sub - 1st 25 sq cm - Legs 1 -Epifix (per sq cm) 4 #4- L MED HEEL -Time 11:30 11:49 -Correct Patient Yes Yes -Correct Side, Site, Position Yes Yes -Correct Procedure Yes Yes -Procedure Performed Yes Yes -Type of Procedure Debridement Debridement -Clinical Debridement Subcutaneous Subcutaneous -Tissue Removed Subcutaneous Subcutaneous -Post Debridement (cm) - Length 6.5 6.5 -Post Debridement (cm) - Width 3.7 3.1 -Post Debridement (cm) - Depth 0.3 0.2 -Total Square (Post) (cm) 24.05 20.15 -Area of Debridement (cm) - Length 6.5 6.5 -Area of Debridement (cm) - Width 3.7 3.1 -Total Square (Area) (cm) 24.05 20.15 -Tunneling No No -Undermining/Tunneling No No -Circular Undermining No No -Wound/Ulcer Outcome Not Healed Not Healed -Ulcer Cleansing Rinsed/ Rinsed/ Irrigated with Irrigated with Saline Saline -Foul Odor after Cleansing No No -Bioengineered Tissue No No -Bleeding Controlled with Pressure Pressure -Treatment Response Procedure Procedure Tolerated Well Tolerated Well -Offloading No -Debridement - Subq, 1st 20sq cm Yes Yes -Debridement, SubQ, ea addt'l 20sq cm 1 1 or part thereof Pain Scale: 0-10 Numeric Is Patient Pain Free? Yes Yes WC - Nurse 3 - General Ulcer D/C NN Start: 04/11/24 11:02 Freq: Status: Active Protocol: Activity Type Activity Date Activity User E-sign Co-sign Detail Recorded Client Recorded Date Recorded By Document 04/11/24 11:46 KW [id number] 04/11/24 11:47 KW Document 04/18/24 12:24 DL [id number] 04/18/24 12:25 DL 04/11/24 04/18/24 11:46 12:24 Wound Care Center Nurse 3 7 rt price cluster -Foul Odor after Cleansing No -Primary Dressing Applied Silvercel -Other Dressing Epimesh -Primary Dressing Covered/Secured with Dry Gauze & Dry Gauze & Roll Gauze, Roll Gauze, Secured with Secured with Tape Tape -Silvercel 1 #4- L MED HEEL -Ulcer Cleansing Soap and Water -Foul Odor after Cleansing No -Primary Dressing Applied Aquacel AG 4x4 -Other Dressing silver -Primary Dressing Covered/Secured with Dry Gauze & Dry Gauze & Roll Gauze, Roll Gauze, Secured with Secured with Tape Tape -Aquacel AG 4x4 1 bilat LE -Compression Wrap Kd Wrap Kd Wrap -Stockings Yes -Other 4 Treatment Response Procedure Tolerated Well Pain Scale: 0-10 Numeric Is Patient Pain Free? Yes Yes WC - Visit Discharge Discharge Condition Stable Stable Ambulatory Status Wheelchair Ambulatory, Wheelchair Transportation Private Auto Private Auto Medication Reconcilliation completed & No provided to patient/care provider Clinical Summary of Care Provided Yes Assessment/Plan Assessment/Plan (1) Non-pressure chronic ulcer of other part of right lower leg with fat layer exposed: CODE(S): L97.812 - Non-pressure chronic ulcer of other part of right lower leg with fat layer exposed PLAN: Patient was examined and evaluated. All findings were discussed with the patient. All questions were answered to the patient's satisfaction. Excisional debridement down to including subcutaneous tissue with a number 5 mm dermal curette to the left medial heel without incident. Predebridement measurement was 5.5 x 2.6 x 0.1 cm. Postdebridement measurement is 6.5 x 3.1 x 0.2 cm. Left lower extremities are clean and patted dry. Aquacel Ag followed by dry sterile dressing and multilayer compression wrap was donned to left lower extremity. Excisional debridement down to including subcutaneous tissue with a number 5 mm dermal curette to the right anterior leg full-thickness wound without incident. Predebridement measurement was callus. Postdebridement measurement was 2.2 x 1.6 x 0.1 cm. EpiFix 2.0 x 2.0 mm graft was applied to the right full-thickness ulceration with 100% use. First application. The graft site was free and clear of any infection. The wound/skin graft substitute was dressed with nonadherent bandage secured in place with Steri-Strips followed by bolster dressing as well as a multilayer compression bandage. Review of the patient's cultures show that he is also growing MRSA. The patient will be placed on Bactrim DS to be taken twice daily for 2 weeks. I educated the patient that he does have an allergy to sulfa but due to risk versus benefit the patient has multiple resistant antibiotics to his culture and risk versus benefit, this is the best option for the patient. I educated the patient that if he does have issues he is to report to the emergency room for evaluation and possible admission for IV antibiotics as needed. Patient will leave the dressing clean dry and intact to the bilateral lower extremity. Educated patient continue strict blood sugar control. Follow-up at the wound care center with Dr. Spann in 1 week. (2) Non-pressure chronic ulcer of left heel and midfoot with fat layer exposed: CODE(S): L97.422 - Non-pressure chronic ulcer of left heel and midfoot with fat layer exposed (3) Peripheral vascular disease: CODE(S): I73.9 - Peripheral vascular disease, unspecified
[2024-04-25 11:48] VITALS: RESP 18; TEMP 35.8; BMI 37.3
--- NOTE | 2024-04-25 12:46 | PN.PCM_ITS ---
History of Present Illness Date of Service: 04/25/24 Chief Complaint: Right foot ulcer History of Wound: Chronic ulceration to the left heel and anterior right leg. Progress of Wound: Left heel wound is stable but shows evidence of drainage. Right anterior leg wound is stable. Subjective Subjective Mr. Renae is a 78-year-old male presented with care send today follow-up evaluation of right anterior leg wound with skin graft substitute application as well as full-thickness wound to the left heel. He has been compliant with leaving his wrappings clean dry and intact. He is pumping at home. He denies trauma. Denies constitutional symptoms. No other pedal complaints at this time. 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 Objective Data Objective Data Vital Signs: Vital Signs Temp Pulse Resp BP O2 Del Method 96.5 F L 70 18 135/57 H Room Air 04/25/24 11:48 04/18/24 11:28 04/25/24 11:48 04/18/24 11:28 04/25/24 11:48 Oxygen Delivery Method Room Air Weight: 124.738 kg Body Mass Index (BMI) 37.3 Physical Exam Narrative Vascular: DP and PT pulses are faintly palpable. CFT is brisk. Nonpitting edema appreciated to bilateral lower extremity. Skin temperature gradient warm to warm from proximal ankles to distal digit bilateral. Evidence of hemosiderin deposits bilateral. Neurological: Light touch intact. Protective station is diminished. Dermatological: Full-thickness ulceration to the left medial heel measuring 3.9 x 6.7 x 0.3 cm. Wound base is fibrogranular in nature. Blanchable erythema to periwound. No active drainage at this time. Full-thickness wound to the right anterior leg is now healed. Excisional debridement down to including subcutaneous tissue with a number 5 mm dermal curette to the left medial heel without incident. Predebridement measurement was 3.0 x 6.0 x 0.2 cm. Postdebridement measurement is 3.9 x 6.7 x 0.3 cm. Musculoskeletal: Muscle strength is 5 out of 5 in all quadrants bilateral. No pain on palpation to full-thickness wound on the left leg or right anterior leg. No pain with calf pressure. Debridement Note Debridement Note Debridement Free Text: Excisional debridement down to including subcutaneous tissue with a number 5 mm dermal curette to the left medial heel without incident. Predebridement measurement was 3.0 x 6.0 x 0.2 cm. Postdebridement measurement is 3.9 x 6.7 x 0.3 cm. Post-Debridement Measurements and Additional Note: Post-Debridement Measurements/Treatment WC - Nurse 1 - General Ulcer Assessment Start: 04/11/24 11:02 Freq: Status: Active Protocol: WC.LOWEXT Activity Type Activity Date Activity User E-sign Co-sign Detail Recorded Client Recorded Date Recorded By Document 04/11/24 11:04 KW [id number] 04/11/24 11:12 KW Document 04/18/24 11:28 DL [id number] 04/18/24 11:43 DL Document 04/25/24 11:48 GM [id number] 04/25/24 11:59 GM 04/11/24 04/18/24 04/25/24 11:04 11:28 11:48 WC - Today's Visit Information Type of service Follow-up Visit Follow-up Visit Follow-up Visit (Physician/COMPRESSED [employer] EQUIPMENT MECHANIC (Physician/COMPRESSED GAS EQUIPMENT MECHANIC (Physician/COMPRESSED GAS EQUIPMENT MECHANIC ) ) ) Arrival Mode Wheelchair Ambulatory, Wheelchair Wheelchair Transfer Assistance Manual Manual Transfer Assist (Other) x1 Accompanied by Patient Identification Verified (Name & Yes Yes Yes ) Patient Requires Transmission-Based No Precautions Height and Weight Body Mass Index (BMI) 37.3 37.3 37.3 BMI Classification Obese Obese Obese Vital Signs Temperature (97.8 F-99.1 F) 96.9 F L 97.9 F 96.5 F L Temperature Source Temporal Temporal Temporal Pulse Rate (60-100) 62 70 Pulse Location Monitor Monitor Monitor Respiratory Rate (12-18) 18 18 18 Respiratory rate source Observation Observation Observation Oxygen Delivery Method Room Air Room Air Blood Pressure (90/60-120/80) 187/74 H 135/57 H Blood Pressure Mean (mm Hg) 111 83 Source Monitor Monitor Monitor Position Semi-Fowlers Semi-Fowlers Blood Pressure Location Left Forearm Right Arm History Since Last Visit- (Skip if this is Patient's initial visit) Have you changed medications since your No No No last visit? Any new allergies or adverse reactions No No No Had a fall/change in ADL's that may No No No increase risk of falls Signs or symptoms of abuse and/or No No No neglect since last visit Have you been in the hospital since your No No last visit? Has dressing in place as prescribed Yes Yes Yes Has compression in place as prescribed Yes Yes Yes Has offloadiing in place as prescribed N/A Yes N/A Experienced any changes in pain level or No No No management Left Footwear Regular Shoe Regular Shoe Right Footwear Regular Shoe Regular Shoe Pain Scale: 0-10 Numeric Is Patient Pain Free? No Yes Yes WC - Nurse 1 - General Ulcer Measurement Start: 04/11/24 11:02 Freq: Status: Active Protocol: Activity Type Activity Date Activity User E-sign Co-sign Detail Recorded Client Recorded Date Recorded By Document 04/11/24 11:04 KW [id number] 04/11/24 11:12 KW Document 04/18/24 11:28 DL [id number] 04/18/24 11:43 DL Document 04/25/24 11:48 GM [id number] 04/25/24 11:59 GM 04/11/24 04/18/24 04/25/24 11:04 11:28 11:48 Wound Center Nurse 1 7 rt price cluster -Current Size (cm) - Length 0.1 0.1 0.1 -Current Size (cm) - Width 0.1 0.1 0.1 -Current Size (cm) - Depth 0.1 0.1 0.1 -Total Square Cm 0.01 0.01 0.01 -Photo Taken No -Epithelialization Large 67-100% -Tunneling No -Undermining/Tunneling No -Circular Undermining No -Exudate Amt Medium Small None Present -Exudate Type Serosanguineous Serosanguineous -Wound Margin Distinct, Distinct, Distinct, Outline Outline Outline Attached Attached Attached -Granulation Amt Large (67-100%) Large (67-100%) Large (67-100%) -Granulation Quality [place] -Slough/Fibrin No -Necrosis Amt None Present (0 None Present (0 %) %) -Structure Exposed N/A -Texture (Hannah-wound Skin Appearance) Assessed Scarring Assessed -Moisture (Hannah-wound Skin Appearance) Assessed Dry/Scaly Assessed -Color (Hannah-wound Skin Appearance) Assessed, Hemosiderin Assessed Erythema Staining -Temperature (Hannah-wound Skin No Abnormality No Abnormality No Abnormality Appearance) (Pt Warm) (Pt Warm) (Pt Warm) -Tenderness on Palpation (Hannah-wound No No Skin Appearance) -Ulcer Cleansing Rinsed/ Soap and Water Soap and Water Irrigated with Saline -Foul Odor after Cleansing No No No -Anesthetic Used 5% Lidocaine 4% Lidocaine 5% Lidocaine Gel Solution Gel -Wound Comment(s) blisters #4- L MED HEEL -Combined with other wound No -Current Size (cm) - Length 4 4 1.2 -Current Size (cm) - Width 5.5 4.5 1.2 -Current Size (cm) - Depth 0.3 0.1 0.1 -Total Square Cm 22.0 18.0 1.44 -Photo Taken No -Epithelialization Large 67-100% -Tunneling No -Undermining/Tunneling No -Circular Undermining No -Exudate Amt Medium Medium Medium -Exudate Type Serosanguineous Serosanguineous Yellow/Green -Wound Margin Distinct, Distinct, Distinct, Outline Outline Outline Attached Attached Attached -Granulation Amt Large (67-100%) Medium (34-66%) Medium (34-66%) -Granulation Quality [place] -Slough/Fibrin Yes -Necrosis Amt Small (1-33%) Medium (34-66%) -Necrotic Tissue Type Adherent Slough Eschar -Structure Exposed N/A -Texture (Hannah-wound Skin Appearance) Assessed,Callus Localized Edema Assessed ,Scarring -Moisture (Hannah-wound Skin Appearance) Maceration Maceration Assessed, Maceration -Color (Hannah-wound Skin Appearance) Assessed No Abnormality Assessed -Temperature (Hannah-wound Skin No Abnormality No Abnormality No Abnormality Appearance) (Pt Warm) (Pt Warm) (Pt Warm) -Tenderness on Palpation (Hannah-wound No No Skin Appearance) -Ulcer Cleansing Rinsed/ Soap and Water Soap and Water Irrigated with Saline -Foul Odor after Cleansing No No No -Anesthetic Used 5% Lidocaine 4% Lidocaine 5% Lidocaine Gel Solution Gel Lower Limb Edema Present Yes Right Calf (cm) 46.5 47.2 Right Ankle (cm) 30 29.5 Left Calf (cm) 45.5 56.5 Left Ankle (cm) 33.5 31.8 WC - Nurse 2 - General Ulcer CM Notes Start: 04/11/24 11:02 Freq: Status: Active Protocol: Activity Type Activity Date Activity User E-sign Co-sign Detail Recorded Client Recorded Date Recorded By Document 04/11/24 11:29 JF [id number] 04/11/24 11:32 JF Edit Result 04/11/24 11:29 JF (1) [id number] 04/11/24 11:34 JF Document 04/18/24 11:48 BMF [id number] 04/18/24 12:01 BMF Document 04/25/24 12:15 JF [id number] 04/25/24 12:21 JF (1) 7 rt price cluster - Time => 11:34 - Correct Patient No => Yes - Correct Side, Site, Position No => Yes - Correct Procedure No => Yes - Procedure Performed No => Yes - Type of Procedure => Debridement - Clinical Debridement => Subcutaneous - Tissue Removed => Subcutaneous - Post Debridement (cm) - Length => 1.5 - Post Debridement (cm) - Width => 1.1 - Post Debridement (cm) - Depth => 0.2 - Total Square (Post) (cm) => 1.65 - Area of Debridement (cm) - Length => 1.5 - Area of Debridement (cm) - Width => 1.1 - Total Square (Area) (cm) => 1.65 - Tunneling => No - Undermining/Tunneling => No - Ulcer Cleansing => Rinsed/Irrigated => with Saline - Foul Odor after Cleansing => No - Bioengineered Tissue => No - Bleeding Controlled with => Pressure - Treatment Response => Procedure => Tolerated Well - Offloading => No - Debridement - Subq, 1st 20sq cm => No 04/11/24 04/18/24 04/25/24 11:29 11:48 12:15 Wound Center Nurse 2 7 rt price cluster -Time 11:34 11:48 -Correct Patient Yes Yes No -Correct Side, Site, Position Yes Yes No -Correct Procedure Yes Yes No -Procedure Performed Yes Yes No -Type of Procedure Debridement Debridement -Clinical Debridement Subcutaneous Subcutaneous -Tissue Removed Subcutaneous Subcutaneous -Post Debridement (cm) - Length 1.5 2.2 0 -Post Debridement (cm) - Width 1.1 1.6 0 -Post Debridement (cm) - Depth 0.2 0.1 0 -Total Square (Post) (cm) 1.65 3.52 0 -Area of Debridement (cm) - Length 1.5 2.2 0 -Area of Debridement (cm) - Width 1.1 1.6 0 -Total Square (Area) (cm) 1.65 3.52 0 -Tunneling No No -Undermining/Tunneling No No -Circular Undermining No -Wound/Ulcer Outcome Not Healed Not Healed Healed- Epithelialized -Ulcer Cleansing Rinsed/ Rinsed/ Irrigated with Irrigated with Saline Saline -Foul Odor after Cleansing No Yes -Bioengineered Tissue No No -Type of Bioengineered Tissue Epifix -Expiration Date 12/05/28 -Product Lot Number [id number] -Percent Used 100 -Lot number of Saline Used [id number] -Bleeding Controlled with Pressure Pressure -Treatment Response Procedure Procedure Tolerated Well Tolerated Well -Offloading No -Debridement - Subq, 1st 20sq cm No No -Apply Skin Sub - 1st 25 sq cm - Legs 1 -Epifix (per sq cm) 4 #4- L MED HEEL -Time 11:30 11:49 12:15 -Correct Patient Yes Yes Yes -Correct Side, Site, Position Yes Yes Yes -Correct Procedure Yes Yes Yes -Procedure Performed Yes Yes Yes -Type of Procedure Debridement Debridement Debridement -Clinical Debridement Subcutaneous Subcutaneous Subcutaneous -Tissue Removed Subcutaneous Subcutaneous Subcutaneous -Post Debridement (cm) - Length 6.5 6.5 3.9 -Post Debridement (cm) - Width 3.7 3.1 6.7 -Post Debridement (cm) - Depth 0.3 0.2 0.3 -Total Square (Post) (cm) 24.05 20.15 26.13 -Area of Debridement (cm) - Length 6.5 6.5 3.9 -Area of Debridement (cm) - Width 3.7 3.1 6.7 -Total Square (Area) (cm) 24.05 20.15 26.13 -Tunneling No No No -Undermining/Tunneling No No No -Circular Undermining No No No -Wound/Ulcer Outcome Not Healed Not Healed Not Healed -Ulcer Cleansing Rinsed/ Rinsed/ Rinsed/ Irrigated with Irrigated with Irrigated with Saline Saline Saline -Foul Odor after Cleansing No No No -Bioengineered Tissue No No No -Bleeding Controlled with Pressure Pressure Pressure -Treatment Response Procedure Procedure Procedure Tolerated Well Tolerated Well Tolerated Well -Offloading No No -Debridement - Subq, 1st 20sq cm Yes Yes Yes -Debridement, SubQ, ea addt'l 20sq cm 1 1 1 or part thereof Pain Scale: 0-10 Numeric Is Patient Pain Free? Yes Yes Yes - Nurse 3 - General Ulcer D/C NN Start: 04/11/24 11:02 Freq: Status: Active Protocol: Activity Type Activity Date Activity User E-sign Co-sign Detail Recorded Client Recorded Date Recorded By Document 04/11/24 11:46 KW [id number] 04/11/24 11:47 KW Document 04/18/24 12:24 DL [id number] 04/18/24 12:25 DL Document 04/25/24 12:29 MT [id number] 04/25/24 12:46 MT 04/11/24 04/18/24 04/25/24 11:46 12:24 12:29 Wound Care Center Nurse 3 7 rt price cluster -Foul Odor after Cleansing No -Primary Dressing Applied Silvercel -Other Dressing Epimesh -Primary Dressing Covered/Secured with Dry Gauze & Dry Gauze & Roll Gauze, Roll Gauze, Secured with Secured with Tape Tape -Silvercel 1 #4- L MED HEEL -Ulcer Cleansing Soap and Water -Foul Odor after Cleansing No -Primary Dressing Applied Aquacel AG 4x4 Optilok 6.5x10, Silvercel -Other Dressing silver -Primary Dressing Covered/Secured with Dry Gauze & Dry Gauze & Dry Gauze, Roll Gauze, Roll Gauze, Secured with Secured with Secured with Tape Tape Tape -Aquacel AG 4x4 1 -Optilok 6.5x10 1 -Silvercel 1 bilat LE -Multi-Layered Wrap Application Multi-Layer Comp - Bilat ($ ) -Compression Wrap Kd Wrap Kd Wrap -Stockings Yes -Other 4 Treatment Response Procedure Tolerated Well Pain Scale: 0-10 Numeric Is Patient Pain Free? Yes Yes Yes WC - Visit Discharge Discharge Condition Stable Stable Stable Ambulatory Status Wheelchair Ambulatory, Wheelchair Transportation Private Auto Private Auto Private Auto Medication Reconcilliation completed & No No provided to patient/care provider Clinical Summary of Care Provided Yes Yes Assessment/Plan Assessment/Plan (1) Non-pressure chronic ulcer of left heel and midfoot with fat layer exposed: CODE(S): L97.422 - Non-pressure chronic ulcer of left heel and midfoot with fat layer exposed PLAN: Patient was examined and evaluated. All findings were discussed with the patient. All questions were answered to the patient's satisfaction. Excisional debridement down to including subcutaneous tissue with a number 5 mm dermal curette to the left medial heel without incident. Predebridement measurement was 3.0 x 6.0 x 0.2 cm. Postdebridement measurement is 3.9 x 6.7 x 0.3 cm. The left lower extremities were cleaned and patted dry. Silver alginate was applied to the left heel followed by dry sterile dressing and multilayer compression wrap. The right leg was wiped clean and patted dry and the wound is now healed. The patient was dressed in Adaptic to the anterior leg followed by multilayer compression bandage. Patient will leave via lower extremities clean dry and intact. He will finish his antibiotic as written. Will begin authorization for full-thickness wound amniotic skin graft substitute application to help speed the healing process. CPT code: L97.422 Patient will be following up with his orthopedic surgeon regarding his knee implant in May. Follow-up at the wound care center with Dr. Spann in 1 week. (2) Non-pressure chronic ulcer of other part of right lower leg with fat layer exposed: CODE(S): L97.812 - Non-pressure chronic ulcer of other part of right lower leg with fat layer exposed (3) Peripheral vascular disease: CODE(S): I73.9 - Peripheral vascular disease, unspecified
[2024-05-02 11:32] VITALS: BP 140/71; PULSE 60; RESP 18; TEMP 35.9; BMI 37.3
--- NOTE | 2024-05-02 13:08 | PN.PCM_ITS ---
History of Present Illness Date of Service: 05/02/24 Chief Complaint: Right foot ulcer History of Wound: Chronic ulceration to the left heel and anterior right leg. Progress of Wound: Left heel wound is stable but shows evidence of drainage. Right anterior leg wound is stable. Subjective Subjective Mr. Renae is a 78-year-old male presenting with concern today for follow-up evaluation of full-thickness wound to left heel. Patient is been compliant to left his dressing clean dry and intact. He will be following up in the first week of May with orthopedics regarding the contracture of his right knee. He denies any trauma or pain to the left heel. Blood sugar well-controlled. Denies constitutional symptoms. No other pedal complaints at this time. Objective Data Objective Data Vital Signs: Vital Signs Temp Pulse Resp BP O2 Del Method 96.7 F L 60 18 140/71 H Room Air 05/02/24 11:32 05/02/24 11:32 05/02/24 11:32 05/02/24 11:32 05/02/24 11:32 Oxygen Delivery Method Room Air Weight: 124.738 kg Body Mass Index (BMI) 37.3 Physical Exam Narrative Vascular: DP and PT pulses are faintly palpable. CFT is brisk. Nonpitting edema appreciated to bilateral lower extremity. Skin temperature gradient warm to warm from proximal ankles to distal digit bilateral. Evidence of hemosiderin deposits bilateral. No erythema. Neurological: Light touch intact. Protective station is diminished. Dermatological: Full-thickness ulceration to the left medial heel measuring 2.7 x 5.5 x 0.2 cm. Wound base is fibrogranular in nature. Excisional debridement down to including subcutaneous tissue with a number 5 mm dermal curette to the left medial heel without incident. Predebridement measurement was 2.5 x 5.0 x 0.1 cm. Postdebridement measurement is 2.7 x 5.5 x 0.2 cm. EpiFix mesh 4.0 x 4.5 cm was applied to the left full-thickness ulceration with 100% use. First application. The graft site was free and clear of any infection. The wound/skin graft substitute was dressed with nonadherent bandage secured in place with Steri-Strips followed by bolster dressing as well as a bilateral 3M multilayer compression bandage. Musculoskeletal: Muscle strength is 5 out of 5 in all quadrants bilateral. No pain on palpation to full-thickness wound on the left leg or right anterior leg. No pain with calf pressure. Debridement Note Debridement Note Debridement Free Text: Excisional debridement down to including subcutaneous tissue with a number 5 mm dermal curette to the left medial heel without incident. Predebridement measurement was 2.5 x 5.0 x 0.1 cm. Postdebridement measurement is 2.7 x 5.5 x 0.2 cm. EpiFix mesh 4.0 x 4.5 cm was applied to the left full-thickness ulceration with 100% use. First application. The graft site was free and clear of any infection. The wound/skin graft substitute was dressed with nonadherent bandage secured in place with Steri-Strips followed by bolster dressing as well as a bilateral 3M multilayer compression bandage. Post-Debridement Measurements and Additional Note: Post-Debridement Measurements/Treatment WC - Nurse 1 - General Ulcer Assessment Start: 04/11/24 11:02 Freq: Status: Active Protocol: JORGE Activity Type Activity Date Activity User E-sign Co-sign Detail Recorded Client Recorded Date Recorded By Document 04/11/24 11:04 KW [id number] 04/11/24 11:12 KW Document 04/18/24 11:28 DL [id number] 04/18/24 11:43 DL Document 04/25/24 11:48 GM [id number] 04/25/24 11:59 GM Document 05/02/24 11:32 KW [id number] 05/02/24 11:42 KW 04/11/24 04/18/24 04/25/24 11:04 11:28 11:48 WC - Today's Visit Information Type of service Follow-up Visit Follow-up Visit Follow-up Visit (Physician/CUSTOMER CARE ASSOCIATE (Physician/CUSTOMER CARE ASSOCIATE (Physician/CUSTOMER CARE ASSOCIATE ) ) ) Arrival Mode Wheelchair Ambulatory, Wheelchair Wheelchair Transfer Assistance Manual Manual Transfer Assist (Other) x1 Accompanied by Patient Identification Verified (Name & Yes Yes Yes ) Patient Requires Transmission-Based No Precautions Height and Weight Body Mass Index (BMI) 37.3 37.3 37.3 BMI Classification Obese Obese Obese Vital Signs Temperature (97.8 F-99.1 F) 96.9 F L 97.9 F 96.5 F L Temperature Source Temporal Temporal Temporal Pulse Rate (60-100) 62 70 Pulse Location Monitor Monitor Monitor Respiratory Rate (12-18) 18 18 18 Respiratory rate source Observation Observation Observation Oxygen Delivery Method Room Air Room Air Blood Pressure (90/60-120/80) 187/74 H 135/57 H Blood Pressure Mean (mm Hg) 111 83 Source Monitor Monitor Monitor Position Semi-Fowlers Semi-Fowlers Blood Pressure Location Left Forearm Right Arm History Since Last Visit- (Skip if this is Patient's initial visit) Have you changed medications since your No No No last visit? Any new allergies or adverse reactions No No No Had a fall/change in ADL's that may No No No increase risk of falls Signs or symptoms of abuse and/or No No No neglect since last visit Have you been in the hospital since your No No last visit? Has dressing in place as prescribed Yes Yes Yes Has compression in place as prescribed Yes Yes Yes Has offloadiing in place as prescribed N/A Yes N/A Experienced any changes in pain level or No No No management Left Footwear Regular Shoe Regular Shoe Right Footwear Regular Shoe Regular Shoe Pain Scale: 0-10 Numeric Is Patient Pain Free? No Yes Yes 05/02/24 11:32 WC - Today's Visit Information Type of service Follow-up Visit (Physician/CUSTOMER CARE ASSOCIATE ) Arrival Mode Wheelchair Transfer Assistance Transfer Assist (Other) Accompanied by Patient Identification Verified (Name & Yes ) Patient Requires Transmission-Based Precautions Height and Weight Body Mass Index (BMI) 37.3 BMI Classification Obese Vital Signs Temperature (97.8 F-99.1 F) 96.7 F L Temperature Source Temporal Pulse Rate (60-100) 60 Pulse Location Monitor Respiratory Rate (12-18) 18 Respiratory rate source Observation Oxygen Delivery Method Room Air Blood Pressure (90/60-120/80) 140/71 H Blood Pressure Mean (mm Hg) 94 Source Monitor Position Sitting Blood Pressure Location Left Arm History Since Last Visit- (Skip if this is Patient's initial visit) Have you changed medications since your No last visit? Any new allergies or adverse reactions No Had a fall/change in ADL's that may No increase risk of falls Signs or symptoms of abuse and/or No neglect since last visit Have you been in the hospital since your No last visit? Has dressing in place as prescribed Yes Has compression in place as prescribed Yes Has offloadiing in place as prescribed N/A Experienced any changes in pain level or No management Left Footwear Regular Shoe Right Footwear Regular Shoe Pain Scale: 0-10 Numeric Is Patient Pain Free? Yes WC - Nurse 1 - General Ulcer Measurement Start: 04/11/24 11:02 Freq: Status: Active Protocol: Activity Type Activity Date Activity User E-sign Co-sign Detail Recorded Client Recorded Date Recorded By Document 04/11/24 11:04 KW [id number] 04/11/24 11:12 KW Document 04/18/24 11:28 DL [id number] 04/18/24 11:43 DL Document 04/25/24 11:48 GM [id number] 04/25/24 11:59 GM Document 05/02/24 11:32 KW [id number] 05/02/24 11:42 KW 04/11/24 04/18/24 04/25/24 11:04 11:28 11:48 Wound Center Nurse 1 7 rt price cluster -Current Size (cm) - Length 0.1 0.1 0.1 -Current Size (cm) - Width 0.1 0.1 0.1 -Current Size (cm) - Depth 0.1 0.1 0.1 -Total Square Cm 0.01 0.01 0.01 -Photo Taken No -Epithelialization Large 67-100% -Tunneling No -Undermining/Tunneling No -Circular Undermining No -Exudate Amt Medium Small None Present -Exudate Type Serosanguineous Serosanguineous -Wound Margin Distinct, Distinct, Distinct, Outline Outline Outline Attached Attached Attached -Granulation Amt Large (67-100%) Large (67-100%) Large (67-100%) -Granulation Quality [place] -Slough/Fibrin No -Necrosis Amt None Present (0 None Present (0 %) %) -Structure Exposed N/A -Texture (Hannah-wound Skin Appearance) Assessed Scarring Assessed -Moisture (Hannah-wound Skin Appearance) Assessed Dry/Scaly Assessed -Color (Hannah-wound Skin Appearance) Assessed, Hemosiderin Assessed Erythema Staining -Temperature (Hannah-wound Skin No Abnormality No Abnormality No Abnormality Appearance) (Pt Warm) (Pt Warm) (Pt Warm) -Tenderness on Palpation (Hannah-wound No No Skin Appearance) -Ulcer Cleansing Rinsed/ Soap and Water Soap and Water Irrigated with Saline -Foul Odor after Cleansing No No No -Anesthetic Used 5% Lidocaine 4% Lidocaine 5% Lidocaine Gel Solution Gel -Wound Comment(s) blisters #4- L MED HEEL -Combined with other wound No -Current Size (cm) - Length 4 4 1.2 -Current Size (cm) - Width 5.5 4.5 1.2 -Current Size (cm) - Depth 0.3 0.1 0.1 -Total Square Cm 22.0 18.0 1.44 -Date of Last Picture (Recall this field) -Photo Taken No -Epithelialization Large 67-100% -Tunneling No -Undermining/Tunneling No -Circular Undermining No -Exudate Amt Medium Medium Medium -Exudate Type Serosanguineous Serosanguineous Yellow/Green -Wound Margin Distinct, Distinct, Distinct, Outline Outline Outline Attached Attached Attached -Granulation Amt Large (67-100%) Medium (34-66%) Medium (34-66%) -Granulation Quality [place] -Slough/Fibrin Yes -Necrosis Amt Small (1-33%) Medium (34-66%) -Necrotic Tissue Type Adherent Slough Eschar -Structure Exposed N/A -Texture (Hannah-wound Skin Appearance) Assessed,Callus Localized Edema Assessed ,Scarring -Moisture (Hannah-wound Skin Appearance) Maceration Maceration Assessed, Maceration -Color (Hannah-wound Skin Appearance) Assessed No Abnormality Assessed -Temperature (Hannah-wound Skin No Abnormality No Abnormality No Abnormality Appearance) (Pt Warm) (Pt Warm) (Pt Warm) -Tenderness on Palpation (Hannah-wound No No Skin Appearance) -Ulcer Cleansing Rinsed/ Soap and Water Soap and Water Irrigated with Saline -Foul Odor after Cleansing No No No -Anesthetic Used 5% Lidocaine 4% Lidocaine 5% Lidocaine Gel Solution Gel Lower Limb Edema Present Yes Right Calf (cm) 46.5 47.2 Right Ankle (cm) 30 29.5 Left Calf (cm) 45.5 56.5 Left Ankle (cm) 33.5 31.8 05/02/24 11:32 Wound Center Nurse 1 7 rt price cluster -Current Size (cm) - Length -Current Size (cm) - Width -Current Size (cm) - Depth -Total Square Cm -Photo Taken -Epithelialization -Tunneling -Undermining/Tunneling -Circular Undermining -Exudate Amt -Exudate Type -Wound Margin -Granulation Amt -Granulation Quality -Slough/Fibrin -Necrosis Amt -Structure Exposed -Texture (Hannah-wound Skin Appearance) -Moisture (Hannah-wound Skin Appearance) -Color (Hannah-wound Skin Appearance) -Temperature (Hannah-wound Skin Appearance) -Tenderness on Palpation (Hannah-wound Skin Appearance) -Ulcer Cleansing -Foul Odor after Cleansing -Anesthetic Used -Wound Comment(s) #4- L MED HEEL -Combined with other wound -Current Size (cm) - Length 3.7 -Current Size (cm) - Width 4.5 -Current Size (cm) - Depth 0.3 -Total Square Cm 16.65 -Date of Last Picture (Recall this 05/02/24 field) -Photo Taken -Epithelialization -Tunneling -Undermining/Tunneling -Circular Undermining -Exudate Amt Medium -Exudate Type Serosanguineous -Wound Margin Distinct, Outline Attached -Granulation Amt Small (1-33%) -Granulation Quality [place] -Slough/Fibrin -Necrosis Amt Large (67-100%) -Necrotic Tissue Type Adherent Slough -Structure Exposed -Texture (Hannah-wound Skin Appearance) Assessed -Moisture (Hannah-wound Skin Appearance) Assessed, Maceration -Color (Hannah-wound Skin Appearance) Assessed -Temperature (Hannah-wound Skin No Abnormality Appearance) (Pt Warm) -Tenderness on Palpation (Hannah-wound No Skin Appearance) -Ulcer Cleansing Soap and Water -Foul Odor after Cleansing -Anesthetic Used 5% Lidocaine Gel Lower Limb Edema Present Right Calf (cm) 50 Right Ankle (cm) 31.5 Left Calf (cm) 48 Left Ankle (cm) 33.5 WC - Nurse 2 - General Ulcer CM Notes Start: 04/11/24 11:02 Freq: Status: Active Protocol: Activity Type Activity Date Activity User E-sign Co-sign Detail Recorded Client Recorded Date Recorded By Document 04/11/24 11:29 AMPARO [id number] 04/11/24 11:32 JF Edit Result 04/11/24 11:29 JF (1) [id number] 04/11/24 11:34 JF Document 04/18/24 11:48 BMF [id number] 04/18/24 12:01 BM Document 04/25/24 12:15 JF [id number] 04/25/24 12:21 JF Document 05/02/24 12:20 JF [id number] 05/02/24 12:24 JF (1) 7 rt price cluster - Time => 11:34 - Correct Patient No => Yes - Correct Side, Site, Position No => Yes - Correct Procedure No => Yes - Procedure Performed No => Yes - Type of Procedure => Debridement - Clinical Debridement => Subcutaneous - Tissue Removed => Subcutaneous - Post Debridement (cm) - Length => 1.5 - Post Debridement (cm) - Width => 1.1 - Post Debridement (cm) - Depth => 0.2 - Total Square (Post) (cm) => 1.65 - Area of Debridement (cm) - Length => 1.5 - Area of Debridement (cm) - Width => 1.1 - Total Square (Area) (cm) => 1.65 - Tunneling => No - Undermining/Tunneling => No - Ulcer Cleansing => Rinsed/Irrigated => with Saline - Foul Odor after Cleansing => No - Bioengineered Tissue => No - Bleeding Controlled with => Pressure - Treatment Response => Procedure => Tolerated Well - Offloading => No - Debridement - Subq, 1st 20sq cm => No 04/11/24 04/18/24 04/25/24 11:29 11:48 12:15 Wound Center Nurse 2 7 rt price cluster -Time 11:34 11:48 -Correct Patient Yes Yes No -Correct Side, Site, Position Yes Yes No -Correct Procedure Yes Yes No -Procedure Performed Yes Yes No -Type of Procedure Debridement Debridement -Clinical Debridement Subcutaneous Subcutaneous -Tissue Removed Subcutaneous Subcutaneous -Post Debridement (cm) - Length 1.5 2.2 0 -Post Debridement (cm) - Width 1.1 1.6 0 -Post Debridement (cm) - Depth 0.2 0.1 0 -Total Square (Post) (cm) 1.65 3.52 0 -Area of Debridement (cm) - Length 1.5 2.2 0 -Area of Debridement (cm) - Width 1.1 1.6 0 -Total Square (Area) (cm) 1.65 3.52 0 -Tunneling No No -Undermining/Tunneling No No -Circular Undermining No -Wound/Ulcer Outcome Not Healed Not Healed Healed- Epithelialized -Ulcer Cleansing Rinsed/ Rinsed/ Irrigated with Irrigated with Saline Saline -Foul Odor after Cleansing No Yes -Bioengineered Tissue No No -Type of Bioengineered Tissue Epifix -Expiration Date 12/05/28 -Product Lot Number [id number] -Percent Used 100 -Lot number of Saline Used [id number] -Bleeding Controlled with Pressure Pressure -Treatment Response Procedure Procedure Tolerated Well Tolerated Well -Offloading No -Debridement - Subq, 1st 20sq cm No No -Apply Skin Sub - 1st 25 sq cm - Legs 1 -Epifix (per sq cm) 4 #4- L MED HEEL -Time 11:30 11:49 12:15 -Correct Patient Yes Yes Yes -Correct Side, Site, Position Yes Yes Yes -Correct Procedure Yes Yes Yes -Procedure Performed Yes Yes Yes -Type of Procedure Debridement Debridement Debridement -Clinical Debridement Subcutaneous Subcutaneous Subcutaneous -Tissue Removed Subcutaneous Subcutaneous Subcutaneous -Post Debridement (cm) - Length 6.5 6.5 3.9 -Post Debridement (cm) - Width 3.7 3.1 6.7 -Post Debridement (cm) - Depth 0.3 0.2 0.3 -Total Square (Post) (cm) 24.05 20.15 26.13 -Area of Debridement (cm) - Length 6.5 6.5 3.9 -Area of Debridement (cm) - Width 3.7 3.1 6.7 -Total Square (Area) (cm) 24.05 20.15 26.13 -Tunneling No No No -Undermining/Tunneling No No No -Circular Undermining No No No -Wound/Ulcer Outcome Not Healed Not Healed Not Healed -Ulcer Cleansing Rinsed/ Rinsed/ Rinsed/ Irrigated with Irrigated with Irrigated with Saline Saline Saline -Foul Odor after Cleansing No No No -Bioengineered Tissue No No No -Type of Bioengineered Tissue -Expiration Date -Product Lot Number -Percent Used -Lot number of Saline Used -Bleeding Controlled with Pressure Pressure Pressure -Treatment Response Procedure Procedure Procedure Tolerated Well Tolerated Well Tolerated Well -Offloading No No -Debridement - Subq, 1st 20sq cm Yes Yes Yes -Debridement, SubQ, ea addt'l 20sq cm 1 1 1 or part thereof -Apply Skin Sub - 1st 25 sq cm - Feet -Epifix Mesh (per sq cm) Pain Scale: 0-10 Numeric Is Patient Pain Free? Yes Yes Yes 05/02/24 12:20 Wound Center Nurse 2 7 rt price cluster -Time -Correct Patient -Correct Side, Site, Position -Correct Procedure -Procedure Performed -Type of Procedure -Clinical Debridement -Tissue Removed -Post Debridement (cm) - Length -Post Debridement (cm) - Width -Post Debridement (cm) - Depth -Total Square (Post) (cm) -Area of Debridement (cm) - Length -Area of Debridement (cm) - Width -Total Square (Area) (cm) -Tunneling -Undermining/Tunneling -Circular Undermining -Wound/Ulcer Outcome -Ulcer Cleansing -Foul Odor after Cleansing -Bioengineered Tissue -Type of Bioengineered Tissue -Expiration Date -Product Lot Number -Percent Used -Lot number of Saline Used -Bleeding Controlled with -Treatment Response -Offloading -Debridement - Subq, 1st 20sq cm -Apply Skin Sub - 1st 25 sq cm - Legs -Epifix (per sq cm) #4- L MED HEEL -Time 12:20 -Correct Patient Yes -Correct Side, Site, Position Yes -Correct Procedure Yes -Procedure Performed Yes -Type of Procedure Debridement -Clinical Debridement Subcutaneous -Tissue Removed Subcutaneous -Post Debridement (cm) - Length 2.7 -Post Debridement (cm) - Width 5.5 -Post Debridement (cm) - Depth 0.2 -Total Square (Post) (cm) 14.85 -Area of Debridement (cm) - Length 2.7 -Area of Debridement (cm) - Width 5.5 -Total Square (Area) (cm) 14.85 -Tunneling No -Undermining/Tunneling No -Circular Undermining No -Wound/Ulcer Outcome Not Healed -Ulcer Cleansing Rinsed/ Irrigated with Saline -Foul Odor after Cleansing No -Bioengineered Tissue Yes -Type of Bioengineered Tissue Epifix Mesh -Expiration Date 10/05/28 -Product Lot Number [id number] -Percent Used 100 -Lot number of Saline Used [id number] -Bleeding Controlled with Pressure -Treatment Response Procedure Tolerated Well -Offloading No -Debridement - Subq, 1st 20sq cm No -Debridement, SubQ, ea addt'l 20sq cm or part thereof -Apply Skin Sub - 1st 25 sq cm - Feet 1 -Epifix Mesh (per sq cm) 11 Pain Scale: 0-10 Numeric Is Patient Pain Free? Yes WC - Nurse 3 - General Ulcer D/C NN Start: 04/11/24 11:02 Freq: Status: Active Protocol: Activity Type Activity Date Activity User E-sign Co-sign Detail Recorded Client Recorded Date Recorded By Document 04/11/24 11:46 KW [id number] 04/11/24 11:47 KW Document 04/18/24 12:24 DL [id number] 04/18/24 12:25 DL Document 04/25/24 12:29 MT [id number] 04/25/24 12:46 MT Document 05/02/24 12:47 KW [id number] 05/02/24 12:50 KW 04/11/24 04/18/24 04/25/24 11:46 12:24 12:29 Wound Care Center Nurse 3 7 rt price cluster -Foul Odor after Cleansing No -Primary Dressing Applied Silvercel -Other Dressing Epimesh -Primary Dressing Covered/Secured with Dry Gauze & Dry Gauze & Roll Gauze, Roll Gauze, Secured with Secured with Tape Tape -Silvercel 1 #4- L MED HEEL -Ulcer Cleansing Soap and Water -Foul Odor after Cleansing No -Primary Dressing Applied Aquacel AG 4x4 Optilok 6.5x10, Silvercel -Other Dressing silver -Primary Dressing Covered/Secured with Dry Gauze & Dry Gauze & Dry Gauze, Roll Gauze, Roll Gauze, Secured with Secured with Secured with Tape Tape Tape -Aquacel AG 4x4 1 -Optilok 6.5x10 1 -Silvercel 1 bilat LE -Multi-Layered Wrap Application Multi-Layer Comp - Bilat ($ ) -Compression Wrap Kd Wrap Kd Wrap -Stockings Yes -Other 4 Treatment Response Procedure Tolerated Well Pain Scale: 0-10 Numeric Is Patient Pain Free? Yes Yes Yes WC - Visit Discharge Discharge Condition Stable Stable Stable Ambulatory Status Wheelchair Ambulatory, Wheelchair Transportation Private Auto Private Auto Private Auto Medication Reconcilliation completed & No No provided to patient/care provider Clinical Summary of Care Provided Yes Yes #4- L MED HEEL -Primary Dressing Applied -Primary Dressing Covered/Secured with -Optilok 6.5x10 bilat LE -Multi-Layered Wrap Application 05/02/24 12:47 Wound Care Center Nurse 3 7 rt price cluster -Foul Odor after Cleansing -Primary Dressing Applied -Other Dressing -Primary Dressing Covered/Secured with -Silvercel #4- L MED HEEL -Ulcer Cleansing -Foul Odor after Cleansing -Primary Dressing Applied -Other Dressing -Primary Dressing Covered/Secured with -Aquacel AG 4x4 -Optilok 6.5x10 -Silvercel bilat LE -Multi-Layered Wrap Application -Compression Wrap -Stockings -Other Treatment Response Pain Scale: 0-10 Numeric Is Patient Pain Free? Yes WC - Visit Discharge Discharge Condition Stable Ambulatory Status Wheelchair Transportation Private Auto Medication Reconcilliation completed & No provided to patient/care provider Clinical Summary of Care Provided Yes #4- L MED HEEL -Primary Dressing Applied Optilok 6.5x10 -Primary Dressing Covered/Secured with Dry Gauze, Secured with Tape -Optilok 6.5x10 1 bilat LE -Multi-Layered Wrap Application Multi-Layer Comp - Bilat ($ ) Assessment/Plan Assessment/Plan (1) Non-pressure chronic ulcer of left heel and midfoot with fat layer exposed: CODE(S): L97.422 - Non-pressure chronic ulcer of left heel and midfoot with fat layer exposed PLAN: Patient was examined and evaluated. All findings were discussed with the patient. All questions were answered to the patient's satisfaction. Excisional debridement down to including subcutaneous tissue with a number 5 mm dermal curette to the left medial heel without incident. Predebridement measurement was 2.5 x 5.0 x 0.1 cm. Postdebridement measurement is 2.7 x 5.5 x 0.2 cm. EpiFix mesh 4.0 x 4.5 cm was applied to the left full-thickness ulceration with 100% use. First application. The graft site was free and clear of any infection. The wound/skin graft substitute was dressed with nonadherent bandage secured in place with Steri-Strips followed by bolster dressing as well as a bilateral 3M multilayer compression bandage. Patient will follow-up with orthopedic surgery regarding the right knee contr acture. Educated the patient continue strict blood sugar control. Follow-up at the wound care center with Dr. Spann in 1 week. (2) Peripheral vascular disease: CODE(S): I73.9 - Peripheral vascular disease, unspecified
--- NOTE | 2024-05-03 09:36 | WC ---
PHOTO 05/02/24 LEFT HEEL
== END 2024-05-04 23:59 | disposition home or self-care (01) ==
LOC: WC 11:15
PROVIDERS: PCP Internal Medicine; Referring Provider Podiatrist Foot & Ankle Surgery; Visit Provider Podiatrist Foot & Ankle Surgery
DX: E11.621 Type 2 diabetes mellitus with foot ulcer (principal); L97.422 Non-pressure chronic ulcer of left heel and midfoot with fat layer exposed; Z79.4 Long term (current) use of insulin; E11.51 Type 2 diabetes mellitus with diabetic peripheral angiopathy without gangrene; M24.561 Contracture, right knee; R60.0 Localized edema; Z79.01 Long term (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 of anticoagulants; Z79.890 Hormone replacement therapy; Z79.899 Other long term (current) drug therapy
CPT/HCPCS: 11042; 11045; 15271; 15275; 29581; Q4186

== ENCOUNTER 2024-05-30 11:45 | Outpatient (RCR) | payer MEDICARE, OTHER, SELFPAY ==
[2024-05-05 00:56] VITALS: BP 140/71; PULSE 60; RESP 18; TEMP 35.9; BMI 37.3
[2024-05-09 11:27] VITALS: RESP 16; TEMP 36.4; BMI 37.3
--- NOTE | 2024-05-09 14:03 | PN.PCM_ITS ---
History of Present Illness Date of Service: 05/09/24 Chief Complaint: Right foot ulcer History of Wound: Chronic ulceration to the left heel and anterior right leg. Progress of Wound: Chronic ulceration left heel stable. Subjective Subjective Mr. Renae is a 78-year-old diabetic male presented wound care center today for follow-up evaluation of left heel full-thickness wound. He has left his wrap clean dry and intact. Amniotic skin graft substitute is intact. Wound is improving. Blood sugar well-controlled. He still has a contracted right knee and seeing orthopedics on Tuesday. Denies trauma. Denies constitutional symptoms. No other pedal complaints at this time. Objective Data Objective Data Vital Signs: Vital Signs Temp Pulse Resp BP 97.6 F L 60 16 140/71 H 05/09/24 11:27 05/05/24 00:56 05/09/24 11:27 05/05/24 00:56 Weight: 124.738 kg Body Mass Index (BMI) 37.3 Physical Exam Narrative Vascular: DP and PT pulses are faintly palpable. CFT is brisk. Nonpitting edema appreciated to bilateral lower extremity. Skin temperature gradient warm to warm from proximal ankles to distal digit bilateral. Evidence of hemosiderin deposits bilateral. No erythema. Neurological: Light touch intact. Protective station is diminished. Dermatological: Full-thickness ulceration to the left medial heel measuring 3.8 x 5.7 x 0.1 cm. Wound base is fibrogranular in nature. Excisional debridement down to including subcutaneous tissue with a number 5 mm dermal curette to the left medial heel without incident. Predebridement measurement was 3.5 x 5.0 x 0.1 cm. Postdebridement measurement is 3.8 x 5.7 x 0.1 cm. EpiFix mesh 4.0 x 4.5 cm was applied to the left full-thickness ulceration with 100% use. Second application. The graft site was free and clear of any infection. The wound/skin graft substitute was dressed with nonadherent bandage secured in place with Steri-Strips followed by bolster dressing as well as a bilateral 3M multilayer compression bandage. Musculoskeletal: Muscle strength is 5 out of 5 in all quadrants bilateral. No pain on palpation to full-thickness wound on the left leg or right anterior leg. No pain with calf pressure. Debridement Note Debridement Note Debridement Free Text: Excisional debridement down to including subcutaneous tissue with a number 5 mm dermal curette to the left medial heel without incident. Predebridement measurement was 3.5 x 5.0 x 0.1 cm. Postdebridement measurement is 3.8 x 5.7 x 0.1 cm. EpiFix mesh 4.0 x 4.5 cm was applied to the left full-thickness ulceration with 100% use. Second application. The graft site was free and clear of any infection. The wound/skin graft substitute was dressed with nonadherent bandage secured in place with Steri-Strips followed by bolster dressing as well as a bilateral 3M multilayer compression bandage. 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 Any new allergies or adverse reactions No Had a fall/change in ADL's that may No increase risk of falls Signs or symptoms of abuse and/or No neglect since last visit Have you been in the hospital since your No last visit? Has dressing in place as prescribed Yes Has compression in place as prescribed Yes Has offloadiing in place as prescribed N/A Experienced any changes in pain level or No management Pain Scale: 0-10 Numeric Is Patient Pain Free? Yes - Nurse 1 - General Ulcer Measurement Start: 05/09/24 11:27 Freq: Status: Active Protocol: Activity Type Activity Date Activity User E-sign Co-sign Detail Recorded Client Recorded Date Recorded By Document 05/09/24 11:27 ML [id number] 05/09/24 11:38 ML 05/09/24 11:27 Wound Center Nurse 1 #4- L MED HEEL -Current Size (cm) - Length 6 -Current Size (cm) - Width 4.5 -Current Size (cm) - Depth 0.2 -Total Square Cm 27.0 -Exudate Amt Medium -Exudate Type Serosanguineous -Wound Margin Distinct, Outline Attached -Granulation Amt Medium (34-66%) -Necrosis Amt Medium (34-66%) -Necrotic Tissue Type Adherent Slough -Texture (Hannah-wound Skin Appearance) No Abnormality -Moisture (Hannah-wound Skin Appearance) Assessed -Color (Hannah-wound Skin Appearance) Assessed -Temperature (Hannah-wound Skin No Abnormality Appearance) (Pt Warm) -Tenderness on Palpation (Hannah-wound No Skin Appearance) -Ulcer Cleansing Soap and Water -Foul Odor after Cleansing No -Anesthetic Used 5% Lidocaine Gel Right Calf (cm) 46.5 Right Ankle (cm) 29.5 Left Calf (cm) 46 Left Ankle (cm) 29.7 WC - Nurse 2 - General Ulcer CM Notes Start: 05/09/24 11:27 Freq: Status: Active Protocol: Activity Type Activity Date Activity User E-sign Co-sign Detail Recorded Client Recorded Date Recorded By Document 05/09/24 12:23 JF [id number] 05/09/24 12:29 05/09/24 12:23 Wound Center Nurse 2 #4- L MED HEEL -Time 12:24 -Correct Patient Yes -Correct Side, Site, Position Yes -Correct Procedure Yes -Procedure Performed Yes -Type of Procedure Debridement -Clinical Debridement Subcutaneous -Tissue Removed Subcutaneous -Post Debridement (cm) - Length 3.8 -Post Debridement (cm) - Width 5.7 -Post Debridement (cm) - Depth 0.1 -Total Square (Post) (cm) 21.66 -Area of Debridement (cm) - Length 3.8 -Area of Debridement (cm) - Width 5.7 -Total Square (Area) (cm) 21.66 -Tunneling No -Undermining/Tunneling No -Circular Undermining No -Wound/Ulcer Outcome Not Healed -Ulcer Cleansing Rinsed/ Irrigated with Saline -Foul Odor after Cleansing No -Bioengineered Tissue Yes -Type of Bioengineered Tissue Epifix Mesh -Expiration Date 10/05/28 -Product Lot Number [id number] -Percent Used 100 -Lot number of Saline Used [id number] -Bleeding Controlled with Pressure -Treatment Response Procedure Tolerated Well -Offloading No -Debridement - Subq, 1st 20sq cm No -Apply Skin Sub - 1st 25 sq cm - Feet 1 -Epifix Mesh (per sq cm) 11 Pain Scale: 0-10 Numeric Is Patient Pain Free? Yes WC - Nurse 3 - General Ulcer D/C NN Start: 05/09/24 11:27 Freq: Status: Active Protocol: Activity Type Activity Date Activity User E-sign Co-sign Detail Recorded Client Recorded Date Recorded By Document 05/09/24 12:40 DE [id number] 05/09/24 12:42 DE 05/09/24 12:40 Wound Care Center Nurse 3 #4- L MED HEEL -Primary Dressing Applied Optilok 6.5x10 -Other Dressing 1 -Primary Dressing Covered/Secured with Dry Gauze & Roll Gauze, Secured with Tape -Optilok 6.5x10 1 BLE -Multi-Layered Wrap Application Multi-Layer Comp - Bilat ($ ) -Multi-Layer Compression Bilat (Qty 2 applied) Pain Scale: 0-10 Numeric Is Patient Pain Free? Yes Assessment/Plan Assessment/Plan (1) Non-pressure chronic ulcer of left heel and midfoot with fat layer exposed: CODE(S): L97.422 - Non-pressure chronic ulcer of left heel and midfoot with fat layer exposed PLAN: Patient was examined and evaluated. All findings were discussed with the patient. All questions were answered to the patient's satisfaction. Excisional debridement down to including subcutaneous tissue with a number 5 mm dermal curette to the left medial heel without incident. Predebridement measurement was 3.5 x 5.0 x 0.1 cm. Postdebridement measurement is 3.8 x 5.7 x 0.1 cm. EpiFix mesh 4.0 x 4.5 cm was applied to the left full-thickness ulceration with 100% use. Second application. The graft site was free and clear of any infection. The wound/skin graft substitute was dressed with nonadherent bandage secured in place with Steri-Strips followed by bolster dressing as well as a bilateral 3M multilayer compression bandage. Patient will follow-up with orthopedics this Tuesday regarding the right knee. Follow-up at the wound care center with Dr. Spann in 1 week.
[2024-05-16 11:44] VITALS: BP 139/81; PULSE 102; RESP 18; TEMP 36.2; BMI 37.3
--- NOTE | 2024-05-16 13:46 | PCM.WC.PN ---
History of Present Illness Date of Service: 05/16/24 Chief Complaint: Right foot ulcer History of Wound: Chronic ulceration to the left heel and anterior right leg. Progress of Wound: Chronic ulceration left heel stable. Subjective Subjective Mr. Renae is a 78-year-old diabetic male presented wound care center today for follow-up evaluation of left heel full-thickness wound. Patient has left the dressing clean dry and intact. He denies any drainage. He did follow-up with orthopedic and said there is little to nothing wrong with the implant to the right knee. He will be doing home physical therapy when ordered. He denies any pain to the left foot. Denies trauma. Denies constitutional symptoms. Blood sugars well-controlled. No other pedal complaints at this time. Objective Data Objective Data Vital Signs: Vital Signs Temp Pulse Resp BP O2 Del Method 97.2 F L 102 H 18 139/81 H Room Air 05/16/24 11:44 05/16/24 11:44 05/16/24 11:44 05/16/24 11:44 05/16/24 11:44 Oxygen Delivery Method Room Air Weight: 124.738 kg Body Mass Index (BMI) 37.3 Physical Exam Narrative Vascular: DP and PT pulses are faintly palpable. CFT is brisk. Nonpitting edema appreciated to bilateral lower extremity. Skin temperature gradient warm to warm from proximal ankles to distal digit bilateral. Evidence of hemosiderin deposits bilateral. No erythema. Neurological: Light touch intact. Protective station is diminished. Dermatological: Full-thickness ulceration to the left medial heel measuring 2.5 x 5.0 x 0.1 cm. Wound base is fibrogranular in nature. Excisional debridement down to including subcutaneous tissue with a number 5 mm dermal curette to the left medial heel without incident. Predebridement measurement was 2.3 x 4.0 x 0.1 cm. Postdebridement measurement is 2.5 x 5.0 x 0.1 cm. EpiFix mesh 4.0 x 4.5 cm was applied to the left full-thickness ulceration with 100% use. Third application. The graft site was free and clear of any infection. The wound/skin graft substitute was dressed with nonadherent bandage secured in place with Steri-Strips followed by bolster dressing as well as a bilateral 3M multilayer compression bandage. Musculoskeletal: Muscle strength is 5 out of 5 in all quadrants bilateral. No pain on palpation to full-thickness wound on the left leg or right anterior leg. No pain with calf pressure. Debridement Note Debridement Note Post-Debridement Measurements and Additional Note: Post-Debridement Measurements/Treatment - Nurse 1 - General Ulcer Assessment Start: 05/09/24 11:27 Freq: Status: Active Protocol: WC.LOWEXT Activity Type Activity Date Activity User E-sign Co-sign Detail Recorded Client Recorded Date Recorded By Document 05/09/24 11:27 ML [id number] 05/09/24 11:38 ML Document 05/16/24 11:44 KW [id number] 05/16/24 11:52 KW 05/09/24 05/16/24 11:27 11:44 WC - Today's Visit Information Type of service Follow-up Visit Follow-up Visit (Physician/CHAIRLIFT OPERATOR (Physician/CHAIRLIFT OPERATOR ) ) Arrival Mode Wheelchair Transfer Assistance None Accompanied by Patient Identification Verified (Name & Yes Yes ) Patient Requires Transmission-Based No Precautions Height and Weight Body Mass Index (BMI) 37.3 37.3 BMI Classification Obese Obese Vital Signs Temperature (97.8 F-99.1 F) 97.6 F L 97.2 F L Temperature Source Temporal Temporal Pulse Rate (60-100) 102 H Pulse Location Monitor Monitor Respiratory Rate (12-18) 16 18 Respiratory rate source Observation Observation Oxygen Delivery Method Room Air Blood Pressure (90/60-120/80) 139/81 H Blood Pressure Mean (mm Hg) 100 Source Monitor Monitor Position Sitting Semi-Fowlers Blood Pressure Location Right Arm Left Arm History Since Last Visit- (Skip if this is Patient's initial visit) Have you changed medications since your No No last visit? Any new allergies or adverse reactions No No Had a fall/change in ADL's that may No No increase risk of falls Signs or symptoms of abuse and/or No No neglect since last visit Have you been in the hospital since your No No last visit? Has dressing in place as prescribed Yes Yes Has compression in place as prescribed Yes Yes Has offloadiing in place as prescribed N/A N/A Experienced any changes in pain level or No No management Left Footwear Regular Shoe Right Footwear Regular Shoe Pain Scale: 0-10 Numeric Is Patient Pain Free? Yes Yes - Nurse 1 - General Ulcer Measurement Start: 05/09/24 11:27 Freq: Status: Active Protocol: Activity Type Activity Date Activity User E-sign Co-sign Detail Recorded Client Recorded Date Recorded By Document 05/09/24 11:27 ML [id number] 05/09/24 11:38 ML Document 05/16/24 11:44 KW [id number] 05/16/24 11:52 KW 05/09/24 05/16/24 11:27 11:44 Wound Center Nurse 1 #4- L MED HEEL -Current Size (cm) - Length 6 3.2 -Current Size (cm) - Width 4.5 3.5 -Current Size (cm) - Depth 0.2 0.1 -Total Square Cm 27.0 11.20 -Date of Last Picture (Recall this 05/16/24 field) -Exudate Amt Medium Medium -Exudate Type Serosanguineous Serosanguineous -Wound Margin Distinct, Distinct, Outline Outline Attached Attached -Granulation Amt Medium (34-66%) Medium (34-66%) -Granulation Quality Red -Necrosis Amt Medium (34-66%) Large (67-100%) -Necrotic Tissue Type Adherent Slough Adherent Slough -Texture (Hannah-wound Skin Appearance) No Abnormality Assessed,Callus -Moisture (Hannah-wound Skin Appearance) Assessed Maceration -Color (Hannah-wound Skin Appearance) Assessed Assessed -Temperature (Hannah-wound Skin No Abnormality No Abnormality Appearance) (Pt Warm) (Pt Warm) -Tenderness on Palpation (Hannah-wound No No Skin Appearance) -Ulcer Cleansing Soap and Water Soap and Water -Foul Odor after Cleansing No No -Anesthetic Used 5% Lidocaine 5% Lidocaine Gel Gel Right Calf (cm) 46.5 48.3 Right Ankle (cm) 29.5 31 Left Calf (cm) 46 49 Left Ankle (cm) 29.7 34 WC - Nurse 2 - General Ulcer CM Notes Start: 05/09/24 11:27 Freq: Status: Active Protocol: Activity Type Activity Date Activity User E-sign Co-sign Detail Recorded Client Recorded Date Recorded By Document 05/09/24 12:23 JF [id number] 05/09/24 12:29 JF Document 05/16/24 12:10 [id number] 05/16/24 12:18 JF 05/09/24 05/16/24 12:23 12:10 Wound Center Nurse 2 #4- L MED HEEL -Time 12:24 12:11 -Correct Patient Yes Yes -Correct Side, Site, Position Yes Yes -Correct Procedure Yes Yes -Procedure Performed Yes Yes -Type of Procedure Debridement Debridement -Clinical Debridement Subcutaneous Subcutaneous -Tissue Removed Subcutaneous Subcutaneous -Post Debridement (cm) - Length 3.8 2.3 -Post Debridement (cm) - Width 5.7 5 -Post Debridement (cm) - Depth 0.1 0.1 -Total Square (Post) (cm) 21.66 11.5 -Area of Debridement (cm) - Length 3.8 2.3 -Area of Debridement (cm) - Width 5.7 5 -Total Square (Area) (cm) 21.66 11.5 -Tunneling No No -Undermining/Tunneling No No -Circular Undermining No No -Wound/Ulcer Outcome Not Healed Not Healed -Ulcer Cleansing Rinsed/ Rinsed/ Irrigated with Irrigated with Saline Saline -Foul Odor after Cleansing No No -Bioengineered Tissue Yes Yes -Type of Bioengineered Tissue Epifix Mesh Epifix Mesh -Expiration Date 10/05/28 11/05/28 -Product Lot Number [id number] -Percent Used 100 100 -Lot number of Saline Used [id number] -Bleeding Controlled with Pressure Pressure -Treatment Response Procedure Procedure Tolerated Well Tolerated Well -Offloading No No -Debridement - Subq, 1st 20sq cm No No -Apply Skin Sub - 1st 25 sq cm - Feet 1 1 -Epifix Mesh (per sq cm) 11 11 Pain Scale: 0-10 Numeric Is Patient Pain Free? Yes Yes - Nurse 3 - General Ulcer D/C NN Start: 05/09/24 11:27 Freq: Status: Active Protocol: Activity Type Activity Date Activity User E-sign Co-sign Detail Recorded Client Recorded Date Recorded By Document 05/09/24 12:40 MT [id number] 05/09/24 12:42 MT Document 05/16/24 12:33 KW [id number] 05/16/24 12:34 KW 05/09/24 05/16/24 12:40 12:33 Wound Care Center Nurse 3 #4- L MED HEEL -Primary Dressing Applied Optilok 6.5x10 Optilok 5x5 1/2 -Other Dressing 1 -Primary Dressing Covered/Secured with Dry Gauze & Dry Gauze & Roll Gauze, Roll Gauze, Secured with Secured with Tape Tape -Optilok 5x5 1/2 1 -Optilok 6.5x10 1 LLE -Multi-Layered Wrap Application Multi-Layer Comp - Left ($) -Multi-Layer Compression Left (Qty 1 applied) BLE -Multi-Layered Wrap Application Multi-Layer Comp - Bilat ($ ) -Multi-Layer Compression Bilat (Qty 2 applied) Pain Scale: 0-10 Numeric Is Patient Pain Free? Yes Yes WC - Visit Discharge Discharge Condition Stable Ambulatory Status Wheelchair Transportation Private Auto Medication Reconcilliation completed & No provided to patient/care provider Clinical Summary of Care Provided Yes Assessment/Plan Assessment/Plan (1) Non-pressure chronic ulcer of left heel and midfoot with fat layer exposed: CODE(S): L97.422 - Non-pressure chronic ulcer of left heel and midfoot with fat layer exposed PLAN: Patient was examined and evaluated. All findings were discussed with the patient. All questions were answered to the patient's satisfaction. Excisional debridement down to including subcutaneous tissue with a number 5 mm dermal curette to the left medial heel without incident. Predebridement measurement was 2.3 x 4.0 x 0.1 cm. Postdebridement measurement is 2.5 x 5.0 x 0.1 cm. EpiFix mesh 4.0 x 4.5 cm was applied to the left full-thickness ulceration with 100% use. Third application. The graft site was free and clear of any infection. The wound/skin graft substitute was dressed with nonadherent bandage secured in place with Steri-Strips followed by bolster dressing as well as a bilateral 3M multilayer compression bandage. Educated patient to practice strict blood sugar control. Also educated the patient to watch how he walks when he uses his walker to make sure that he is walking upright and straight and not putting pressure on the left heel. He was understanding of this. Follow-up at the wound care center with Dr. Spann in 1 week.
--- NOTE | 2024-05-17 09:50 | WC ---
PHOTO 05/16/24 LEFT HEEL
[2024-05-23 11:46] VITALS: BP 143/70; PULSE 73; RESP 16; TEMP 36.4; BMI 37.3
--- NOTE | 2024-05-24 08:46 | WC ---
PHOTO 05/23/24 LT REYES
--- NOTE | 2024-05-24 13:34 | PCM.WC.PN ---
History of Present Illness Date of Service: 05/24/24 Chief Complaint: Right foot ulcer History of Wound: Chronic ulceration to the left heel and anterior right leg. Progress of Wound: Chronic ulceration left heel stable. Subjective Subjective Mr. Renae is a 78-year-old diabetic male presenting with concern today for follow-up evaluation of left heel full-thickness wound with amniotic skin graft substitute. He did follow-up with his orthopedic surgeon and was referred to physical therapy which she has not yet started. Patient also states that he is unsure if he is on a follow-up with physical therapy at this time. Blood sugar has been controlled. He is compressing as discussed. He is left his dressing clean dry and intact. Denies trauma. Denies constitutional symptoms. No other pedal complaints at this time. Objective Data Objective Data Vital Signs: Vital Signs Temp Pulse Resp BP O2 Del Method 97.5 F L 73 16 143/70 H Room Air 05/23/24 11:46 05/23/24 11:46 05/23/24 11:46 05/23/24 11:46 05/16/24 11:44 Oxygen Delivery Method Room Air Weight: 124.738 kg Body Mass Index (BMI) 37.3 Physical Exam Narrative Vascular: DP and PT pulses are faintly palpable. CFT is brisk. Nonpitting edema appreciated to bilateral lower extremity. Skin temperature gradient warm to warm from proximal ankles to distal digit bilateral. Evidence of hemosiderin deposits bilateral. No erythema. Neurological: Light touch intact. Protective station is diminished. Dermatological: Full-thickness ulceration to the left medial heel measuring 3.5 x 5.0 x 0.1 cm. Wound base is fibrogranular in nature. Excisional debridement down to including subcutaneous tissue with a number 5 mm dermal curette to the left medial heel without incident. Predebridement measurement was 3.0 x 4.4 x 0.1 cm. Postdebridement measurement is 3.5 x 5.0 x 0.1 cm. EpiFix mesh 4.0 x 4.5 cm was applied to the left full-thickness ulceration with 100% use. Fourth application. The graft site was free and clear of any infection. The wound/skin graft substitute was dressed with nonadherent bandage secured in place with Steri-Strips followed by bolster dressing as well as a bilateral 3M multilayer compression bandage. Musculoskeletal: Muscle strength is 5 out of 5 in all quadrants bilateral. No pain on palpation to full-thickness wound on the left leg or right anterior leg. No pain with calf pressure. Debridement Note Debridement Note Debridement Free Text: Excisional debridement down to including subcutaneous tissue with a number 5 mm dermal curette to the left medial heel without incident. Predebridement measurement was 3.0 x 4.4 x 0.1 cm. Postdebridement measurement is 3.5 x 5.0 x 0.1 cm. EpiFix mesh 4.0 x 4.5 cm was applied to the left full-thickness ulceration with 100% use. Fourth application. The graft site was free and clear of any infection. The wound/skin graft substitute was dressed with nonadherent bandage secured in place with Steri-Strips followed by bolster dressing as well as a bilateral 3M multilayer compression bandage. Post-Debridement Measurements and Additional Note: Post-Debridement Measurements/Treatment [place] - Nurse 1 - General Ulcer Assessment Start: 05/09/24 11:27 Freq: Status: Active Protocol: JORGE Activity Type Activity Date Activity User E-sign Co-sign Detail Recorded Client Recorded Date Recorded By Document 05/09/24 11:27 ML [id number] 05/09/24 11:38 ML Document 05/16/24 11:44 KW [id number] 05/16/24 11:52 KW Document 05/23/24 11:46 CP [id number] 05/23/24 11:51 CP 05/09/24 05/16/24 05/23/24 11:27 11:44 11:46 - Today's Visit Information Type of service Follow-up Visit Follow-up Visit Follow-up Visit (Physician/QUALITY ASSURANCE (Physician/QUALITY ASSURANCE (Physician/QUALITY ASSURANCE ) ) ) Arrival Mode Wheelchair Ambulatory Transfer Assistance None Accompanied by Patient Identification Verified (Name & Yes Yes Yes ) Patient Requires Transmission-Based No No Precautions Safety Precautions NA Height and Weight Body Mass Index (BMI) 37.3 37.3 37.3 BMI Classification Obese Obese Obese Vital Signs Temperature (97.8 F-99.1 F) 97.6 F L 97.2 F L 97.5 F L Temperature Source Temporal Temporal Temporal Pulse Rate (60-100) 102 H 73 Pulse Location Monitor Monitor Monitor Respiratory Rate (12-18) 16 18 16 Respiratory rate source Observation Observation Observation Oxygen Delivery Method Room Air Blood Pressure (90/60-120/80) 139/81 H 143/70 H Blood Pressure Mean (mm Hg) 100 94 Source Monitor Monitor Monitor Position Sitting Semi-Fowlers Sitting Blood Pressure Location Right Arm Left Arm Right Arm History Since Last Visit- (Skip if this is Patient's initial visit) Have you changed medications since your No No No last visit? Any new allergies or adverse reactions No No No Had a fall/change in ADL's that may No No No increase risk of falls Signs or symptoms of abuse and/or No No No neglect since last visit Have you been in the hospital since your No No No last visit? Has dressing in place as prescribed Yes Yes Yes Has compression in place as prescribed Yes Yes Yes Has offloadiing in place as prescribed N/A N/A N/A Experienced any changes in pain level or No No No management Left Footwear Regular Shoe Right Footwear Regular Shoe Pain Scale: 0-10 Numeric Is Patient Pain Free? Yes Yes Yes WC - Nurse 1 - General Ulcer Measurement Start: 05/09/24 11:27 Freq: Status: Active Protocol: Activity Type Activity Date Activity User E-sign Co-sign Detail Recorded Client Recorded Date Recorded By Document 05/09/24 11:27 ML [id number] 05/09/24 11:38 ML Document 05/16/24 11:44 KW [id number] 05/16/24 11:52 KW Document 05/23/24 11:46 CP [id number] 05/23/24 11:51 CP 05/09/24 05/16/24 05/23/24 11:27 11:44 11:46 Wound Center Nurse 1 #4- L MED HEEL -Current Size (cm) - Length 6 3.2 2.5 -Current Size (cm) - Width 4.5 3.5 4.5 -Current Size (cm) - Depth 0.2 0.1 0.1 -Total Square Cm 27.0 11.20 1125 -Date of Last Picture (Recall this 05/16/24 05/23/24 field) -Photo Taken Yes -Exudate Amt Medium Medium Medium -Exudate Type Serosanguineous Serosanguineous Serosanguineous -Wound Margin Distinct, Distinct, Thickened Outline Outline Attached Attached -Granulation Amt Medium (34-66%) Medium (34-66%) -Granulation Quality Red -Slough/Fibrin Yes -Necrosis Amt Medium (34-66%) Large (67-100%) Large (67-100%) -Necrotic Tissue Type Adherent Slough Adherent Slough Adherent Slough -Texture (Hannah-wound Skin Appearance) No Abnormality Assessed,Callus Callus -Moisture (Hannah-wound Skin Appearance) Assessed Maceration Maceration -Color (Hannah-wound Skin Appearance) Assessed Assessed Palor -Temperature (Hannah-wound Skin No Abnormality No Abnormality No Abnormality Appearance) (Pt Warm) (Pt Warm) (Pt Warm) -Tenderness on Palpation (Hannah-wound No No No Skin Appearance) -Ulcer Cleansing Soap and Water Soap and Water Soap and Water -Foul Odor after Cleansing No No No -Anesthetic Used 5% Lidocaine 5% Lidocaine 5% Lidocaine Gel Gel Gel Right Calf (cm) 46.5 48.3 Right Ankle (cm) 29.5 31 Left Calf (cm) 46 49 49 Left Ankle (cm) 29.7 34 31.6 WC - Nurse 2 - General Ulcer CM Notes Start: 05/09/24 11:27 Freq: Status: Active Protocol: Activity Type Activity Date Activity User E-sign Co-sign Detail Recorded Client Recorded Date Recorded By Document 05/09/24 12:23 [id number] 05/09/24 12:29 Document 05/16/24 12:10 [id number] 05/16/24 12:18 Document 05/23/24 12:47 [id number] 05/23/24 12:53 05/09/24 05/16/24 05/23/24 12:23 12:10 12:47 Wound Center Nurse 2 #4- L MED HEEL -Time 12:24 12:11 12:47 -Correct Patient Yes Yes Yes -Correct Side, Site, Position Yes Yes Yes -Correct Procedure Yes Yes Yes -Procedure Performed Yes Yes Yes -Type of Procedure Debridement Debridement Debridement -Clinical Debridement Subcutaneous Subcutaneous Subcutaneous -Tissue Removed Subcutaneous Subcutaneous Subcutaneous -Post Debridement (cm) - Length 3.8 2.3 3.5 -Post Debridement (cm) - Width 5.7 5 5.0 -Post Debridement (cm) - Depth 0.1 0.1 0.1 -Total Square (Post) (cm) 21.66 11.5 17.50 -Area of Debridement (cm) - Length 3.8 2.3 3.5 -Area of Debridement (cm) - Width 5.7 5 5.0 -Total Square (Area) (cm) 21.66 11.5 17.50 -Tunneling No No Yes -Undermining/Tunneling No No Yes -Circular Undermining No No Yes -Wound/Ulcer Outcome Not Healed Not Healed Not Healed -Ulcer Cleansing Rinsed/ Rinsed/ Rinsed/ Irrigated with Irrigated with Irrigated with Saline Saline Saline -Foul Odor after Cleansing No No No -Bioengineered Tissue Yes Yes Yes -Type of Bioengineered Tissue Epifix Mesh Epifix Mesh Epifix Mesh -Expiration Date 10/05/28 11/05/28 05/23/24 -Product Lot Number [id number] -Percent Used 100 100 100 -Lot number of Saline Used [id number] -Bleeding Controlled with Pressure Pressure Pressure -Treatment Response Procedure Procedure Procedure Tolerated Well Tolerated Well Tolerated Well -Offloading No No No -Debridement - Subq, 1st 20sq cm No No No -Apply Skin Sub - 1st 25 sq cm - Feet 1 1 1 -Epifix Mesh (per sq cm) 11 11 11 Pain Scale: 0-10 Numeric Is Patient Pain Free? Yes Yes Yes WC - Nurse 3 - General Ulcer D/C NN Start: 05/09/24 11:27 Freq: Status: Active Protocol: Activity Type Activity Date Activity User E-sign Co-sign Detail Recorded Client Recorded Date Recorded By Document 05/09/24 12:40 MT [id number] 05/09/24 12:42 MT Document 05/16/24 12:33 KW [id number] 05/16/24 12:34 KW Document 05/23/24 13:01 DL [id number] 05/23/24 13:15 DL 05/09/24 05/16/24 05/23/24 12:40 12:33 13:01 Wound Care Center Nurse 3 #4- L MED HEEL -Ulcer Cleansing Not Cleansed -Foul Odor after Cleansing No -Primary Dressing Applied Optilok 6.5x10 Optilok 5x5 1/2 Optilok 6.5x10 -Other Dressing 1 Epimesh -Primary Dressing Covered/Secured with Dry Gauze & Dry Gauze & Dry Gauze & Roll Gauze, Roll Gauze, Roll Gauze, Secured with Secured with Secured with Tape Tape Tape -Optilok 5x5 1/2 1 -Optilok 6.5x10 1 1 LLE -Multi-Layered Wrap Application Multi-Layer Multi-Layer Comp - Left ($) Comp - Left ($) -Multi-Layer Compression Left (Qty 1 1 applied) BLE -Multi-Layered Wrap Application Multi-Layer Comp - Bilat ($ ) -Multi-Layer Compression Bilat (Qty 2 applied) Treatment Response Procedure Tolerated Well Pain Scale: 0-10 Numeric Is Patient Pain Free? Yes Yes Yes WC - Visit Discharge Discharge Condition Stable Stable Ambulatory Status Wheelchair Wheelchair Transportation Private Auto Private Auto Medication Reconcilliation completed & No provided to patient/care provider Clinical Summary of Care Provided Yes Facility Type Home Health Orders Sent Yes Assessment/Plan Assessment/Plan (1) Non-pressure chronic ulcer of left heel and midfoot with fat layer exposed: CODE(S): L97.422 - Non-pressure chronic ulcer of left heel and midfoot with fat layer exposed PLAN: Patient was examined and evaluated. All findings were discussed with the patient. All questions were answered to the patient's satisfaction. Excisional debridement down to including subcutaneous tissue with a number 5 mm dermal curette to the left medial heel without incident. Predebridement measurement was 3.0 x 4.4 x 0.1 cm. Postdebridement measurement is 3.5 x 5.0 x 0.1 cm. EpiFix mesh 4.0 x 4.5 cm was applied to the left full-thickness ulceration with 100% use. Fourth application. The graft site was free and clear of any infection. The wound/skin graft substitute was dressed with nonadherent bandage secured in place with Steri-Strips followed by bolster dressing as well as a bilateral 3M multilayer compression bandage. Educated patient to practice strict blood sugar control. Educated the patient to follow-up with physical therapy and do the exercises and rehabilitation that was discussed with his orthopedic surgeon. Follow-up at the wound care center with Dr. Spann in 1 week.
[2024-05-30 12:02] VITALS: BP 149/85; PULSE 98; RESP 18; TEMP 36.4; BMI 37.3
--- NOTE | 2024-05-30 15:17 | WC ---
PHOTO 05/30/24 LEFT HEEL
--- NOTE | 2024-06-02 19:32 | PCM.WC.PN ---
History of Present Illness Date of Service: 06/02/24 Chief Complaint: Right foot ulcer History of Wound: Chronic ulceration to the left heel and anterior right leg. Progress of Wound: Chronic ulceration left heel stable. Subjective Subjective Mr. Renae is a 78-year-old diabetic male presented wound care center today for follow-up evaluation of full-thickness wound to the left heel. He has left the compression wrap clean dry and intact. Patient's blood sugars well-controlled. He has not started physical therapy that was prescribed by his orthopedic doctor. Denies trauma. Denies constitutional symptoms. No other pedal complaints at this time. Objective Data Objective Data Vital Signs: Vital Signs Temp Pulse Resp BP O2 Del Method 97.6 F L 98 18 149/85 H Room Air 05/30/24 12:02 05/30/24 12:02 05/30/24 12:02 05/30/24 12:02 05/30/24 12:02 Oxygen Delivery Method Room Air Weight: 124.738 kg Body Mass Index (BMI) 37.3 Physical Exam Narrative Vascular: DP and PT pulses are faintly palpable. CFT is brisk. Nonpitting edema appreciated to bilateral lower extremity. Skin temperature gradient warm to warm from proximal ankles to distal digit bilateral. Evidence of hemosiderin deposits bilateral. No erythema. Ecchymosis appreciated to the center of the full-thickness wound left heel. Neurological: Light touch intact. Protective station is diminished. Dermatological: Full-thickness ulceration to the left medial heel measuring 3.6 x 6.1 x 0.1 cm. Wound base is fibrogranular in nature. Macerated periwound Excisional debridement down to including subcutaneous tissue with a number 5 mm dermal curette to the left medial heel without incident. Predebridement measurement was 3.1 x 5.3 x 0.1 cm. Postdebridement measurement is 3.6 x 6.1 x 0.1 cm. Musculoskeletal: Muscle strength is 5 out of 5 in all quadrants bilateral. No pain on palpation to full-thickness wound on the left leg or right anterior leg. No pain with calf pressure. Debridement Note Debridement Note Debridement Free Text: Excisional debridement down to including subcutaneous tissue with a number 5 mm dermal curette to the left medial heel without incident. Predebridement measurement was 3.1 x 5.3 x 0.1 cm. Postdebridement measurement is 3.6 x 6.1 x 0.1 cm. Post-Debridement Measurements and Additional Note: Post-Debridement Measurements/Treatment WC - Nurse 1 - General Ulcer Assessment Start: 05/09/24 11:27 Freq: Status: Active Protocol: JORGE Activity Type Activity Date Activity User E-sign Co-sign Detail Recorded Client Recorded Date Recorded By Document 05/09/24 11:27 ML [id number] 05/09/24 11:38 ML Document 05/16/24 11:44 KW [id number] 05/16/24 11:52 KW Document 05/23/24 11:46 CP [id number] 05/23/24 11:51 CP Document 05/30/24 12:02 KW [id number] 05/30/24 12:06 KW 05/09/24 05/16/24 05/23/24 11:27 11:44 11:46 WC - Today's Visit Information Type of service Follow-up Visit Follow-up Visit Follow-up Visit (Physician/GARMENT SORTER (Physician/GARMENT SORTER (Physician/GARMENT SORTER ) ) ) Arrival Mode Wheelchair Ambulatory Transfer Assistance None Accompanied by Patient Identification Verified (Name & Yes Yes Yes ) Patient Requires Transmission-Based No No Precautions Safety Precautions NA Height and Weight Body Mass Index (BMI) 37.3 37.3 37.3 BMI Classification Obese Obese Obese Vital Signs Temperature (97.8 F-99.1 F) 97.6 F L 97.2 F L 97.5 F L Temperature Source Temporal Temporal Temporal Pulse Rate (60-100) 102 H 73 Pulse Location Monitor Monitor Monitor Respiratory Rate (12-18) 16 18 16 Respiratory rate source Observation Observation Observation Oxygen Delivery Method Room Air Blood Pressure (90/60-120/80) 139/81 H 143/70 H Blood Pressure Mean (mm Hg) 100 94 Source Monitor Monitor Monitor Position Sitting Semi-Fowlers Sitting Blood Pressure Location Right Arm Left Arm Right Arm History Since Last Visit- (Skip if this is Patient's initial visit) Have you changed medications since your No No No last visit? Any new allergies or adverse reactions No No No Had a fall/change in ADL's that may No No No increase risk of falls Signs or symptoms of abuse and/or No No No neglect since last visit Have you been in the hospital since your No No No last visit? Has dressing in place as prescribed Yes Yes Yes Has compression in place as prescribed Yes Yes Yes Has offloadiing in place as prescribed N/A N/A N/A Experienced any changes in pain level or No No No management Left Footwear Regular Shoe Right Footwear Regular Shoe Pain Scale: 0-10 Numeric Is Patient Pain Free? Yes Yes Yes 05/30/24 12:02 - Today's Visit Information Type of service Follow-up Visit (Physician/GARMENT SORTER ) Arrival Mode Wheelchair Transfer Assistance Accompanied by Patient Identification Verified (Name & Yes ) Patient Requires Transmission-Based Precautions Safety Precautions Height and Weight Body Mass Index (BMI) 37.3 BMI Classification Obese Vital Signs Temperature (97.8 F-99.1 F) 97.6 F L Temperature Source Temporal Pulse Rate (60-100) 98 Pulse Location Monitor Respiratory Rate (12-18) 18 Respiratory rate source Observation Oxygen Delivery Method Room Air Blood Pressure (90/60-120/80) 149/85 H Blood Pressure Mean (mm Hg) 106 Source Monitor Position Semi-Fowlers Blood Pressure Location Left Forearm History Since Last Visit- (Skip if this is Patient's initial visit) Have you changed medications since your No last visit? Any new allergies or adverse reactions No Had a fall/change in ADL's that may No increase risk of falls Signs or symptoms of abuse and/or No neglect since last visit Have you been in the hospital since your No last visit? Has dressing in place as prescribed Yes Has compression in place as prescribed Yes Has offloadiing in place as prescribed N/A Experienced any changes in pain level or No management Left Footwear Regular Shoe Right Footwear Regular Shoe Pain Scale: 0-10 Numeric Is Patient Pain Free? Yes - Nurse 1 - General Ulcer Measurement Start: 05/09/24 11:27 Freq: Status: Active Protocol: Activity Type Activity Date Activity User E-sign Co-sign Detail Recorded Client Recorded Date Recorded By Document 05/09/24 11:27 ML [id number] 05/09/24 11:38 ML Document 05/16/24 11:44 KW [id number] 05/16/24 11:52 KW Document 05/23/24 11:46 CP [id number] 05/23/24 11:51 CP Document 05/30/24 12:02 KW [id number] 05/30/24 12:06 KW 05/09/24 05/16/24 05/23/24 11:27 11:44 11:46 Wound Center Nurse 1 #4- L MED HEEL -Current Size (cm) - Length 6 3.2 2.5 -Current Size (cm) - Width 4.5 3.5 4.5 -Current Size (cm) - Depth 0.2 0.1 0.1 -Total Square Cm 27.0 11.20 11.25 -Date of Last Picture (Recall this 05/16/24 05/23/24 field) -Photo Taken Yes -Exudate Amt Medium Medium Medium -Exudate Type Serosanguineous Serosanguineous Serosanguineous -Wound Margin Distinct, Distinct, Thickened Outline Outline Attached Attached -Granulation Amt Medium (34-66%) Medium (34-66%) -Granulation Quality Red -Slough/Fibrin Yes -Necrosis Amt Medium (34-66%) Large (67-100%) Large (67-100%) -Necrotic Tissue Type Adherent Slough Adherent Slough Adherent Slough -Texture (Hannah-wound Skin Appearance) No Abnormality Assessed,Callus Callus -Moisture (Hannah-wound Skin Appearance) Assessed Maceration Maceration -Color (Hannah-wound Skin Appearance) Assessed Assessed Palor -Temperature (Hananh-wound Skin No Abnormality No Abnormality No Abnormality Appearance) (Pt Warm) (Pt Warm) (Pt Warm) -Tenderness on Palpation (Hannah-wound No No No Skin Appearance) -Ulcer Cleansing Soap and Water Soap and Water Soap and Water -Foul Odor after Cleansing No No No -Anesthetic Used 5% Lidocaine 5% Lidocaine 5% Lidocaine Gel Gel Gel -Wound Comment(s) Right Calf (cm) 46.5 48.3 Right Ankle (cm) 29.5 31 Left Calf (cm) 46 49 49 Left Ankle (cm) 29.7 34 31.6 05/30/24 12:02 Wound Center Nurse 1 #4- L MED HEEL -Current Size (cm) - Length 0.1 -Current Size (cm) - Width 0.1 -Current Size (cm) - Depth 0.1 -Total Square Cm 0.01 -Date of Last Picture (Recall this 05/30/24 field) -Photo Taken -Exudate Amt Medium -Exudate Type Serosanguineous -Wound Margin Distinct, Outline Attached -Granulation Amt Small (1-33%) -Granulation Quality [place] -Slough/Fibrin -Necrosis Amt Large (67-100%) -Necrotic Tissue Type Adherent Slough -Texture (Hannah-wound Skin Appearance) Assessed -Moisture (Hannah-wound Skin Appearance) Assessed, Maceration -Color (Hannah-wound Skin Appearance) Assessed -Temperature (Hannah-wound Skin No Abnormality Appearance) (Pt Warm) -Tenderness on Palpation (Hannah-wound No Skin Appearance) -Ulcer Cleansing Soap and Water -Foul Odor after Cleansing -Anesthetic Used 5% Lidocaine Gel -Wound Comment(s) no measurement in nurse 1 Right Calf (cm) Right Ankle (cm) Left Calf (cm) 47.8 Left Ankle (cm) 32 WC - Nurse 2 - General Ulcer CM Notes Start: 05/09/24 11:27 Freq: Status: Active Protocol: Activity Type Activity Date Activity User E-sign Co-sign Detail Recorded Client Recorded Date Recorded By Document 05/09/24 12:23 [id number] 05/09/24 12:29 Document 05/16/24 12:10 [id number] 05/16/24 12:18 Document 05/23/24 12:47 [id number] 05/23/24 12:53 Document 05/30/24 12:21 [id number] 05/30/24 12:28 05/09/24 05/16/24 05/23/24 12:23 12:10 12:47 Wound Center Nurse 2 #4- L MED HEEL -Time 12:24 12:11 12:47 -Correct Patient Yes Yes Yes -Correct Side, Site, Position Yes Yes Yes -Correct Procedure Yes Yes Yes -Procedure Performed Yes Yes Yes -Type of Procedure Debridement Debridement Debridement -Clinical Debridement Subcutaneous Subcutaneous Subcutaneous -Tissue Removed Subcutaneous Subcutaneous Subcutaneous -Post Debridement (cm) - Length 3.8 2.3 3.5 -Post Debridement (cm) - Width 5.7 5 5.0 -Post Debridement (cm) - Depth 0.1 0.1 0.1 -Total Square (Post) (cm) 21.66 11.5 17.50 -Area of Debridement (cm) - Length 3.8 2.3 3.5 -Area of Debridement (cm) - Width 5.7 5 5.0 -Total Square (Area) (cm) 21.66 11.5 17.50 -Tunneling No No Yes -Undermining/Tunneling No No Yes -Circular Undermining No No Yes -Wound/Ulcer Outcome Not Healed Not Healed Not Healed -Ulcer Cleansing Rinsed/ Rinsed/ Rinsed/ Irrigated with Irrigated with Irrigated with Saline Saline Saline -Foul Odor after Cleansing No No No -Bioengineered Tissue Yes Yes Yes -Type of Bioengineered Tissue Epifix Mesh Epifix Mesh Epifix Mesh -Expiration Date 10/05/28 11/05/28 05/23/24 -Product Lot Number [id number] -Percent Used 100 100 100 -Lot number of Saline Used [id number] -Bleeding Controlled with Pressure Pressure Pressure -Treatment Response Procedure Procedure Procedure Tolerated Well Tolerated Well Tolerated Well -Offloading No No No -Debridement - Subq, 1st 20sq cm No No No -Debridement, SubQ, ea addt'l 20sq cm or part thereof -Apply Skin Sub - 1st 25 sq cm - Feet 1 1 1 -Epifix Mesh (per sq cm) 11 11 11 Pain Scale: 0-10 Numeric Is Patient Pain Free? Yes Yes Yes 05/30/24 12:21 Wound Center Nurse 2 #4- L MED HEEL -Time 12:22 -Correct Patient Yes -Correct Side, Site, Position Yes -Correct Procedure Yes -Procedure Performed Yes -Type of Procedure Debridement -Clinical Debridement Subcutaneous -Tissue Removed Subcutaneous -Post Debridement (cm) - Length 3.6 -Post Debridement (cm) - Width 6.1 -Post Debridement (cm) - Depth 0.1 -Total Square (Post) (cm) 21.96 -Area of Debridement (cm) - Length 3.6 -Area of Debridement (cm) - Width 6.1 -Total Square (Area) (cm) 21.96 -Tunneling No -Undermining/Tunneling No -Circular Undermining No -Wound/Ulcer Outcome Not Healed -Ulcer Cleansing Rinsed/ Irrigated with Saline -Foul Odor after Cleansing No -Bioengineered Tissue No -Type of Bioengineered Tissue -Expiration Date -Product Lot Number -Percent Used -Lot number of Saline Used -Bleeding Controlled with Pressure -Treatment Response Procedure Tolerated Well -Offloading No -Debridement - Subq, 1st 20sq cm Yes -Debridement, SubQ, ea addt'l 20sq cm 1 or part thereof -Apply Skin Sub - 1st 25 sq cm - Feet -Epifix Mesh (per sq cm) Pain Scale: 0-10 Numeric Is Patient Pain Free? Yes - Nurse 3 - General Ulcer D/C NN Start: 05/09/24 11:27 Freq: Status: Active Protocol: Activity Type Activity Date Activity User E-sign Co-sign Detail Recorded Client Recorded Date Recorded By Document 05/09/24 12:40 MT [id number] 05/09/24 12:42 MT Document 05/16/24 12:33 KW [id number] 05/16/24 12:34 KW Document 05/23/24 13:01 DL [id number] 05/23/24 13:15 DL Document 05/30/24 12:52 KW [id number] 05/30/24 12:54 KW 05/09/24 05/16/24 05/23/24 12:40 12:33 13:01 Wound Care Center Nurse 3 #4- L MED HEEL -Ulcer Cleansing Not Cleansed -Foul Odor after Cleansing No -Primary Dressing Applied Optilok 6.5x10 Optilok 5x5 1/2 Optilok 6.5x10 -Other Dressing 1 Epimesh -Primary Dressing Covered/Secured with Dry Gauze & Dry Gauze & Dry Gauze & Roll Gauze, Roll Gauze, Roll Gauze, Secured with Secured with Secured with Tape Tape Tape -Optilok 5x5 1/2 1 -Optilok 6.5x10 1 1 LLE -Multi-Layered Wrap Application Multi-Layer Multi-Layer Comp - Left ($) Comp - Left ($) -Compression Wrap -Other -Multi-Layer Compression Left (Qty 1 1 applied) BLE -Multi-Layered Wrap Application Multi-Layer Comp - Bilat ($ ) -Multi-Layer Compression Bilat (Qty 2 applied) Treatment Response Procedure Tolerated Well Pain Scale: 0-10 Numeric Is Patient Pain Free? Yes Yes Yes WC - Visit Discharge Discharge Condition Stable Stable Ambulatory Status Wheelchair Wheelchair Transportation Private Auto Private Auto Medication Reconcilliation completed & No provided to patient/care provider Clinical Summary of Care Provided Yes Facility Type Home Health Orders Sent Yes 05/30/24 12:52 Wound Care Center Nurse 3 #4- L MED HEEL -Ulcer Cleansing -Foul Odor after Cleansing -Primary Dressing Applied -Other Dressing dakins gauze -Primary Dressing Covered/Secured with Dry Gauze & Roll Gauze, Secured with Tape -Optilok 5x5 1/2 -Optilok 6.5x10 LLE -Multi-Layered Wrap Application -Compression Wrap Kd Wrap -Other 2 -Multi-Layer Compression Left (Qty applied) BLE -Multi-Layered Wrap Application -Multi-Layer Compression Bilat (Qty applied) Treatment Response Pain Scale: 0-10 Numeric Is Patient Pain Free? Yes WC - Visit Discharge Discharge Condition Stable Ambulatory Status Wheelchair Transportation Private Auto Medication Reconcilliation completed & No provided to patient/care provider Clinical Summary of Care Provided Yes Facility Type Orders Sent Assessment/Plan Assessment/Plan (1) Non-pressure chronic ulcer of left heel and midfoot with fat layer exposed: CODE(S): L97.422 - Non-pressure chronic ulcer of left heel and midfoot with fat layer exposed PLAN: Patient was examined and evaluated. All findings were discussed with the patient. All questions were answered to the patient's satisfaction. Excisional debridement down to including subcutaneous tissue with a number 5 mm dermal curette to the left medial heel without incident. Predebridement measurement was 3.1 x 5.3 x 0.1 cm. Postdebridement measurement is 3.6 x 6.1 x 0.1 cm. Betadine soaked Adaptic was applied to the full-thickness wound followed by bilateral 3M multilayer compression bandage. Educated patient to practice strict blood sugar control. Educated the patient to follow-up with physical therapy and do the exercises and rehabilitation that was discussed with his orthopedic surgeon. Follow-up at the wound care center with Dr. Spann in 1 week.
--- NOTE | 2024-06-04 10:19 | WC ---
Nubia from [facility] services called to state pt was approved for twice a week visits for 4 weeks and then weekly visits for 2 weeks. Also awaiting for notification from PCP Dr. Flores to clarify insulin orders. Will contact wound center when new orders are given.
== END 2024-06-04 23:59 | disposition home or self-care (01) ==
LOC: WC 11:45
PROVIDERS: PCP Internal Medicine; Referring Provider Podiatrist Foot & Ankle Surgery; Visit Provider Podiatrist Foot & Ankle Surgery
DX: L97.422 Non-pressure chronic ulcer of left heel and midfoot with fat layer exposed (principal); E11.621 Type 2 diabetes mellitus with foot ulcer; L97.819 Non-pressure chronic ulcer of other part of right lower leg with unspecified severity; Z79.4 Long term (current) use of insulin; M24.561 Contracture, right knee; R60.0 Localized edema; Z79.01 Long term (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 of anticoagulants; Z79.890 Hormone replacement therapy; Z79.899 Other long term (current) drug therapy
CPT/HCPCS: 11042; 11045; 15275; 29581; Q4186

== ENCOUNTER 2024-07-04 09:00 | Outpatient (RCR) | payer MEDICARE, OTHER, SELFPAY ==
[2024-06-05 00:43] VITALS: BP 149/85; PULSE 98; RESP 18; TEMP 36.4; BMI 37.3
[2024-06-06 12:38] VITALS: BP 156/60; PULSE 78; RESP 18; TEMP 36.1; BMI 37.3
--- NOTE | 2024-06-06 13:13 | PCM.WC.PN ---
History of Present Illness Date of Service: 06/06/24 Chief Complaint: Right foot ulcer History of Wound: Chronic ulceration to the left heel and anterior right leg. Progress of Wound: Full-thickness wound left heel stable no sign of infection. Subjective Subjective Mr. Renae is a 78-year-old diabetic male presented wound care center today for follow-up evaluation of full-thickness wound to the medial left heel. Patient has not begun physical therapy at this time. He has left the compression dressing clean dry and intact. Blood sugars well-controlled. Denies trauma. Denies constitutional symptoms. No other pedal complaints at this time. Objective Data Objective Data Vital Signs: Vital Signs Temp Pulse Resp BP O2 Del Method 97 F L 78 18 156/60 H Room Air 06/06/24 12:38 06/06/24 12:38 06/06/24 12:38 06/06/24 12:38 06/06/24 12:38 Oxygen Delivery Method Room Air Weight: 124.738 kg Body Mass Index (BMI) 37.3 Physical Exam Narrative Vascular: DP and PT pulses are faintly palpable. CFT is brisk. Nonpitting edema appreciated to bilateral lower extremity. Skin temperature gradient warm to warm from proximal ankles to distal digit bilateral. Evidence of hemosiderin deposits bilateral. No erythema. No ecchymosis. Neurological: Light touch intact. Protective station is diminished. Dermatological: Full-thickness ulceration to the left medial heel measuring 3.7 x 6.0 x 0.1 cm. Wound base is fibrogranular in nature. Macerated periwound Excisional debridement down to including subcutaneous tissue with a number 5 mm dermal curette to the left medial heel without incident. Predebridement measurement was 3.4 x 5.5 x 0.1 cm.. Postdebridement measurement is 3.7 x 6.0 x 0.1 cm. EpiFix 4.0 x 4.5 cm was applied to the left heel full-thickness ulceration with 100% use. Fifth application. The graft site was free and clear of any infection. The wound/skin graft substitute was dressed with nonadherent bandage secured in place with Steri-Strips followed by bolster dressing as well as a Kd wraps. Musculoskeletal: Muscle strength is 5 out of 5 in all quadrants bilateral. No pain on palpation to full-thickness wound on the left leg or right anterior leg. No pain with calf pressure. Debridement Note Debridement Note Debridement Free Text: Excisional debridement down to including subcutaneous tissue with a number 5 mm dermal curette to the left medial heel without incident. Predebridement measurement was 3.4 x 5.5 x 0.1 cm.. Postdebridement measurement is 3.7 x 6.0 x 0.1 cm. EpiFix 4.0 x 4.5 cm was applied to the left heel full-thickness ulceration with 100% use. Fifth application. The graft site was free and clear of any infection. The wound/skin graft substitute was dressed with nonadherent bandage secured in place with Steri-Strips followed by bolster dressing as well as a Kd wraps. Post-Debridement Measurements and Additional Note: Post-Debridement Measurements/Treatment - Nurse 1 - General Ulcer Assessment Start: 06/06/24 12:38 Freq: Status: Active Protocol: JORGE Activity Type Activity Date Activity User E-sign Co-sign Detail Recorded Client Recorded Date Recorded By Document 06/06/24 12:38 [place] [id number] 06/06/24 12:45 [place] 06/06/24 12:38 - Today's Visit Information Type of service Follow-up Visit (Physician/BUTTON SAWYER ) Arrival Mode Ambulatory, Wheelchair Accompanied by Patient Identification Verified (Name & Yes ) Safety Precautions Fall Prevention Blood Sugar Stated by Patient Height and Weight Body Mass Index (BMI) 37.3 BMI Classification Obese Vital Signs Temperature (97.8 F-99.1 F) 97 F L Temperature Source Temporal Pulse Rate (60-100) 78 Pulse Location Monitor Respiratory Rate (12-18) 18 Respiratory rate source Observation Oxygen Delivery Method Room Air Blood Pressure (90/60-120/80) 156/60 H Blood Pressure Mean (mm Hg) 92 Source Monitor Position Sitting Blood Pressure Location Left Arm History Since Last Visit- (Skip if this is Patient's initial visit) Has dressing in place as prescribed Yes Has compression in place as prescribed Yes Has offloadiing in place as prescribed Yes Experienced any changes in pain level or Yes management Left Footwear Regular Shoe Right Footwear Regular Shoe Pain Scale: 0-10 Numeric Is Patient Pain Free? Yes - Nurse 1 - General Ulcer Measurement Start: 06/06/24 12:38 Freq: Status: Active Protocol: Activity Type Activity Date Activity User E-sign Co-sign Detail Recorded Client Recorded Date Recorded By Document 06/06/24 12:38 [place] [id number] 06/06/24 12:45 [place] 06/06/24 12:38 Wound Center Nurse 1 #4- L MED HEEL -Combined with other wound No -Current Size (cm) - Length 3.5 -Current Size (cm) - Width 5.7 -Current Size (cm) - Depth 0.1 -Total Square Cm 19.95 -Photo Taken Yes -Tunneling No -Undermining/Tunneling No -Circular Undermining No -Exudate Amt Medium -Exudate Type Serosanguineous -Wound Margin Distinct, Outline Attached -Granulation Amt Medium (34-66%) -Granulation Quality [place] -Slough/Fibrin Yes -Necrosis Amt Medium (34-66%) -Necrotic Tissue Type Adherent Slough -Structure Exposed N/A -Texture (Hannah-wound Skin Appearance) Not Assessed -Moisture (Hannah-wound Skin Appearance) Maceration -Color (Hannah-wound Skin Appearance) Assessed -Temperature (Hannah-wound Skin No Abnormality Appearance) (Pt Warm) -Tenderness on Palpation (Hannah-wound No Skin Appearance) -Ulcer Cleansing Wound Cleanser -Foul Odor after Cleansing No -Anesthetic Used 5% Lidocaine Gel Lower Limb Edema Present Yes Left Calf (cm) 53.5 Left Ankle (cm) 29.7 WC - Nurse 2 - General Ulcer CM Notes Start: 06/06/24 12:38 Freq: Status: Active Protocol: Activity Type Activity Date Activity User E-sign Co-sign Detail Recorded Client Recorded Date Recorded By Document 06/06/24 12:54 [id number] 06/06/24 13:05 06/06/24 12:54 Wound Center Nurse 2 #4- L MED HEEL -Time 12:54 -Correct Patient Yes -Correct Side, Site, Position Yes -Correct Procedure Yes -Procedure Performed Yes -Type of Procedure Debridement -Clinical Debridement Subcutaneous -Tissue Removed Subcutaneous -Post Debridement (cm) - Length 3.7 -Post Debridement (cm) - Width 6.0 -Post Debridement (cm) - Depth 0.1 -Total Square (Post) (cm) 22.20 -Area of Debridement (cm) - Length 3.7 -Area of Debridement (cm) - Width 6 -Total Square (Area) (cm) 22.2 -Tunneling No -Undermining/Tunneling No -Circular Undermining No -Wound/Ulcer Outcome Not Healed -Ulcer Cleansing Rinsed/ Irrigated with Saline -Foul Odor after Cleansing No -Bioengineered Tissue Yes -Type of Bioengineered Tissue Epifix Mesh -Expiration Date 11/05/28 -Product Lot Number [id number] -Percent Used 100 -Lot number of Saline Used [id number] -Bleeding Controlled with Pressure -Treatment Response Procedure Tolerated Well -Offloading No -Debridement - Subq, 1st 20sq cm No -Apply Skin Sub - 1st 25 sq cm - Feet 1 -Epifix Mesh (per sq cm) 11 Pain Scale: 0-10 Numeric Is Patient Pain Free? Yes Assessment/Plan Assessment/Plan (1) Non-pressure chronic ulcer of left heel and midfoot with fat layer exposed: CODE(S): L97.422 - Non-pressure chronic ulcer of left heel and midfoot with fat layer exposed PLAN: Patient was examined and evaluated. All findings were discussed with the patient. All questions were answered to the patient's satisfaction. Excisional debridement down to including subcutaneous tissue with a number 5 mm dermal curette to the left medial heel without incident. Predebridement measurement was 3.4 x 5.5 x 0.1 cm.. Postdebridement measurement is 3.7 x 6.0 x 0.1 cm. EpiFix 4.0 x 4.5 cm was applied to the left heel full-thickness ulceration with 100% use. Fifth application. The graft site was free and clear of any infection. The wound/skin graft substitute was dressed with nonadherent bandage secured in place with Steri-Strips followed by bolster dressing as well as a Kd wraps. Educated the patient to begin physical therapy as soon as possible as it can help decrease the contracture to his right knee. The physical therapy will benefit the patient to help optimize his current pathology and to help decrease the pressure that he is having by pronating his left ankle to help support his contracted right knee. Patient was understanding of this and will begin when approved. Educated the patient to continue to check the Kd wrap's if they get loosening or to be reapplied to help decrease his bilateral lower extremity swelling. Follow-up at the wound care center with Dr. Spann in 1 week.
[2024-06-13 11:46] VITALS: BP 122/103; PULSE 59; RESP 18; TEMP 36.4; BMI 37.3
--- NOTE | 2024-06-13 13:15 | PN.PCM_ITS ---
History of Present Illness Date of Service: 06/13/24 Chief Complaint: Right foot ulcer History of Wound: Chronic ulceration to the left heel and anterior right leg. Progress of Wound: Full-thickness wound left heel stable no sign of infection. Subjective Subjective Mr. Renae is a 78-year-old diabetic male presented wound care center today for follow-up evaluation of full-thickness wound to the medial left heel. Patient has begun physical therapy at this time. He has left the compression dressing clean dry and intact. Blood sugars well-controlled. Denies trauma. Denies constitutional symptoms. No other pedal complaints at this time. Objective Data Objective Data Vital Signs: Vital Signs Temp Pulse Resp BP O2 Del Method 97.6 F L 59 L 18 122/103 H Room Air 06/13/24 11:46 06/13/24 11:46 06/13/24 11:46 06/13/24 11:46 06/13/24 11:46 Oxygen Delivery Method Room Air Weight: 124.738 kg Body Mass Index (BMI) 37.3 Physical Exam Narrative Vascular: DP and PT pulses are faintly palpable. CFT is brisk. Nonpitting edema appreciated to bilateral lower extremity. Skin temperature gradient warm to warm from proximal ankles to distal digit bilateral. Evidence of hemosiderin deposits bilateral. No erythema. No ecchymosis. Neurological: Light touch intact. Protective station is diminished. Dermatological: Full-thickness ulceration to the left medial heel measuring 3.0 x 5.2 x 0.1 cm. Wound base is fibrogranular in nature. Macerated periwound, improving Excisional debridement down to including subcutaneous tissue with a number 5 mm dermal curette to the left medial heel without incident. Predebridement measurement was 2.8 x 4.9 x 0.1 cm. Postdebridement measurement is 3.0 x 5.2 x 0.1 cm. EpiFix 4.0 x 4.5 cm was applied to the left heel full-thickness ulceration with 100% use. Sixth application. The graft site was free and clear of any infection. The wound/skin graft substitute was dressed with nonadherent bandage secured in place with Steri-Strips followed by bolster dressing as well as a Kd wraps. Musculoskeletal: Muscle strength is 5 out of 5 in all quadrants bilateral. No pain on palpation to full-thickness wound on the left leg or right anterior leg. No pain with calf pressure. Debridement Note Debridement Note Debridement Free Text: Excisional debridement down to including subcutaneous tissue with a number 5 mm dermal curette to the left medial heel without incident. Predebridement measurement was 2.8 x 4.9 x 0.1 cm. Postdebridement measurement is 3.0 x 5.2 x 0.1 cm. EpiFix 4.0 x 4.5 cm was applied to the left heel full-thickness ulceration with 100% use. Sixth application. The graft site was free and clear of any infection. The wound/skin graft substitute was dressed with nonadherent bandage secured in place with Steri-Strips followed by bolster dressing as well as a Kd wraps. Post-Debridement Measurements and Additional Note: Post-Debridement Measurements/Treatment - Nurse 1 - General Ulcer Assessment Start: 06/06/24 12:38 Freq: Status: Active Protocol: [email or web address] Activity Type Activity Date Activity User E-sign Co-sign Detail Recorded Client Recorded Date Recorded By Document 06/06/24 12:38 PA [id number] 06/06/24 12:45 MT Document 06/13/24 11:46 KW [id number] 06/13/24 11:54 KW 06/06/24 06/13/24 12:38 11:46 - Today's Visit Information Type of service Follow-up Visit Follow-up Visit (Physician/PRIMARY CARE PHYSICIAN (Physician/PRIMARY CARE PHYSICIAN ) ) Arrival Mode Ambulatory, Wheelchair Accompanied by Patient Identification Verified (Name & Yes Yes ) Safety Precautions Fall Prevention Blood Sugar Stated by Patient Height and Weight Body Mass Index (BMI) 37.3 37.3 BMI Classification Obese Obese Vital Signs Temperature (97.8 F-99.1 F) 97 F L 97.6 F L Temperature Source Temporal Temporal Pulse Rate (60-100) 78 59 L Pulse Location Monitor Monitor Respiratory Rate (12-18) 18 18 Respiratory rate source Observation Observation Oxygen Delivery Method Room Air Room Air Blood Pressure (90/60-120/80) 156/60 H 122/103 H Blood Pressure Mean (mm Hg) 92 109 Source Monitor Monitor Position Sitting Semi-Fowlers Blood Pressure Location Left Arm Left Arm History Since Last Visit- (Skip if this is Patient's initial visit) Have you changed medications since your No last visit? Any new allergies or adverse reactions No Had a fall/change in ADL's that may No increase risk of falls Signs or symptoms of abuse and/or No neglect since last visit Have you been in the hospital since your No last visit? Has dressing in place as prescribed Yes Yes Has compression in place as prescribed Yes Yes Has offloadiing in place as prescribed Yes N/A Experienced any changes in pain level or Yes No management Left Footwear Regular Shoe Regular Shoe Right Footwear Regular Shoe Regular Shoe Pain Scale: 0-10 Numeric Is Patient Pain Free? Yes Yes WC - Nurse 1 - General Ulcer Measurement Start: 06/06/24 12:38 Freq: Status: Active Protocol: Activity Type Activity Date Activity User E-sign Co-sign Detail Recorded Client Recorded Date Recorded By Document 06/06/24 12:38 MT [id number] 06/06/24 12:45 MT Document 06/13/24 11:46 KW [id number] 06/13/24 11:54 KW 06/06/24 06/13/24 12:38 11:46 Wound Center Nurse 1 #4- L MED HEEL -Combined with other wound No -Current Size (cm) - Length 3.5 2.5 -Current Size (cm) - Width 5.7 5 -Current Size (cm) - Depth 0.1 0.1 -Total Square Cm 19.95 12.5 -Date of Last Picture (Recall this 06/13/24 field) -Photo Taken Yes -Tunneling No -Undermining/Tunneling No -Circular Undermining No -Exudate Amt Medium Medium -Exudate Type Serosanguineous Yellow/Green -Wound Margin Distinct, Distinct, Outline Outline Attached Attached -Granulation Amt Medium (34-66%) Small (1-33%) -Granulation Quality [place],Red -Slough/Fibrin Yes -Necrosis Amt Medium (34-66%) Large (67-100%) -Necrotic Tissue Type Adherent Slough Adherent Slough -Structure Exposed N/A -Texture (Hannah-wound Skin Appearance) Not Assessed Assessed -Moisture (Hannah-wound Skin Appearance) Maceration Assessed -Color (Hannah-wound Skin Appearance) Assessed Assessed -Temperature (Hannah-wound Skin No Abnormality No Abnormality Appearance) (Pt Warm) (Pt Warm) -Tenderness on Palpation (Hannah-wound No No Skin Appearance) -Ulcer Cleansing Wound Cleanser Soap and Water -Foul Odor after Cleansing No No -Anesthetic Used 5% Lidocaine 5% Lidocaine Gel Gel Lower Limb Edema Present Yes Right Calf (cm) 45.7 Right Ankle (cm) 31.5 Left Calf (cm) 53.5 48.5 Left Ankle (cm) 29.7 32 - Nurse 2 - General Ulcer CM Notes Start: 06/06/24 12:38 Freq: Status: Active Protocol: Activity Type Activity Date Activity User E-sign Co-sign Detail Recorded Client Recorded Date Recorded By Document 06/06/24 12:54 [id number] 06/06/24 13:05 Document 06/13/24 12:11 [id number] 06/13/24 12:18 06/06/24 06/13/24 12:54 12:11 Wound Center Nurse 2 #4- L MED HEEL -Time 12:54 12:11 -Correct Patient Yes Yes -Correct Side, Site, Position Yes Yes -Correct Procedure Yes Yes -Procedure Performed Yes Yes -Type of Procedure Debridement Debridement -Clinical Debridement Subcutaneous Subcutaneous -Tissue Removed Subcutaneous Subcutaneous -Post Debridement (cm) - Length 3.7 3.0 -Post Debridement (cm) - Width 6.0 5.2 -Post Debridement (cm) - Depth 0.1 0.1 -Total Square (Post) (cm) 22.20 15.60 -Area of Debridement (cm) - Length 3.7 3.0 -Area of Debridement (cm) - Width 6 5.2 -Total Square (Area) (cm) 22.2 15.60 -Tunneling No No -Undermining/Tunneling No No -Circular Undermining No No -Wound/Ulcer Outcome Not Healed Not Healed -Ulcer Cleansing Rinsed/ Rinsed/ Irrigated with Irrigated with Saline Saline -Foul Odor after Cleansing No No -Bioengineered Tissue Yes Yes -Type of Bioengineered Tissue Epifix Mesh Epifix Mesh -Expiration Date 11/05/28 11/05/28 -Product Lot Number [id number] -Percent Used 100 100 -Lot number of Saline Used [id number] -Bleeding Controlled with Pressure Pressure -Treatment Response Procedure Procedure Tolerated Well Tolerated Well -Offloading No No -Debridement - Subq, 1st 20sq cm No No -Apply Skin Sub - 1st 25 sq cm - Feet 1 1 -Epifix Mesh (per sq cm) 11 11 Pain Scale: 0-10 Numeric Is Patient Pain Free? Yes Yes WC - Nurse 3 - General Ulcer D/C NN Start: 06/06/24 12:38 Freq: Status: Active Protocol: Activity Type Activity Date Activity User E-sign Co-sign Detail Recorded Client Recorded Date Recorded By Document 06/06/24 13:25 DL [id number] 06/06/24 13:27 DL Document 06/13/24 12:23 GM [id number] 06/13/24 12:24 GM 06/06/24 06/13/24 13:25 12:23 Wound Care Center Nurse 3 #4- L MED HEEL -Ulcer Cleansing Not Cleansed Not Cleansed -Foul Odor after Cleansing No No -Negative Pressure Wound Therapy N/A -Other Dressing Epifix -Primary Dressing Covered/Secured with Dry Gauze & Dry Gauze,Dry Roll Gauze, Gauze & Roll Secured with Gauze,Secured Tape with Tape,Other -Other Covering ABD/Nurses Hat ABD pad LLE -Lotion applied to leg before No compression wrap -Compression Wrap Kd Wrap Kd Wrap BLE -Lotion applied to leg before No compression wrap -Compression Wrap Kd Wrap Treatment Response Procedure Tolerated Well Pain Scale: 0-10 Numeric Is Patient Pain Free? Yes Yes WC - Visit Discharge Discharge Condition Stable Stable Ambulatory Status Wheelchair Wheelchair Transportation Private Auto Private Auto Clinical Summary of Care Provided Yes Notes: Pt wishes to Continue CircAid to RLE, refusing kd to RLE at this time. Facility Type Home Health Orders Sent Yes Assessment/Plan Assessment/Plan (1) Non-pressure chronic ulcer of left heel and midfoot with fat layer exposed: CODE(S): L97.422 - Non-pressure chronic ulcer of left heel and midfoot with fat layer exposed PLAN: Patient was examined and evaluated. All findings were discussed with the patient. All questions were answered to the patient's satisfaction. Excisional debridement down to including subcutaneous tissue with a number 5 mm dermal curette to the left medial heel without incident. Predebridement measurement was 2.8 x 4.9 x 0.1 cm. Postdebridement measurement is 3.0 x 5.2 x 0.1 cm. EpiFix 4.0 x 4.5 cm was applied to the left heel full-thickness ulceration with 100% use. Sixth application. The graft site was free and clear of any infection. The wound/skin graft substitute was dressed with nonadherent bandage secured in place with Steri-Strips followed by bolster dressing as well as a Kd wraps. Educated the patient to continue physical therapy to help decrease the contracture to his right knee. The patient will benefit from physical therapy moving forward in my opinion. Educated the patient to continue to check the Kd wrap's if they get loosening or to be reapplied to help decrease his bilateral lower extremity swelling. Follow-up at the wound care center with Dr. Spann in 1 week.
--- NOTE | 2024-06-14 11:02 | WC ---
PHOTO 06/13/24 LEFT HEEL
[2024-06-20 11:09] VITALS: BP 145/67; PULSE 69; RESP 16; BMI 37.3
--- NOTE | 2024-06-20 13:47 | PCM.WC.PN ---
History of Present Illness Date of Service: 06/20/24 Chief Complaint: Right foot ulcer History of Wound: Chronic ulceration to the left heel and anterior right leg. Progress of Wound: Full-thickness wound left heel stable no sign of infection. Subjective Subjective Mr. Renae is a 78-year-old diabetic male presented wound care center today for follow-up evaluation of full-thickness wound to the medial left heel. Patient is doing physical therapy and is having a good time doing it. He has left the dressing clean dry and intact. Denies strikethrough. Blood sugars well-controlled. Denies trauma. Denies constitutional symptoms. No pedal complaints at this time Objective Data Objective Data Vital Signs: Vital Signs Temp Pulse Resp BP O2 Del Method 97.6 F L 69 16 145/67 H Room Air 06/13/24 11:46 06/20/24 11:09 06/20/24 11:09 06/20/24 11:09 06/20/24 11:09 Oxygen Delivery Method Room Air Weight: 124.738 kg Body Mass Index (BMI) 37.3 Physical Exam Narrative Vascular: DP and PT pulses are faintly palpable. CFT is brisk. Nonpitting edema appreciated to bilateral lower extremity. Skin temperature gradient warm to warm from proximal ankles to distal digit bilateral. Evidence of hemosiderin deposits bilateral. No erythema. No ecchymosis. Neurological: Light touch intact. Protective station is diminished. Dermatological: Full-thickness ulceration to the left medial heel measuring 2.6 x 5.6 x 0.1 cm wound base is fibrogranular in nature. Macerated periwound, improving Excisional debridement down to including subcutaneous tissue with a number 5 mm dermal curette to the left medial heel without incident. Predebridement measurement was 2.4 x 5.4 x 0.1 cm.. Postdebridement measurement is 2.6 x 5.6 x 0.1 cm. EpiFix 4.0 x 4.5 cm was applied to the left heel full-thickness ulceration with 100% use. Seventh application. The graft site was free and clear of any infection. The wound/skin graft substitute was dressed with nonadherent bandage secured in place with Steri-Strips followed by bolster dressing as well as a Kd wraps. Musculoskeletal: Muscle strength is 5 out of 5 in all quadrants bilateral. No pain on palpation to full-thickness wound on the left leg or right anterior leg. No pain with calf pressure. Debridement Note Debridement Note Debridement Free Text: Excisional debridement down to including subcutaneous tissue with a number 5 mm dermal curette to the left medial heel without incident. Predebridement measurement was 2.4 x 5.4 x 0.1 cm.. Postdebridement measurement is 2.6 x 5.6 x 0.1 cm. EpiFix 4.0 x 4.5 cm was applied to the left heel full-thickness ulceration with 100% use. Seventh application. The graft site was free and clear of any infection. The wound/skin graft substitute was dressed with nonadherent bandage secured in place with Steri-Strips followed by bolster dressing as well as a Kd wraps. Post-Debridement Measurements and Additional Note: Post-Debridement Measurements/Treatment - Nurse 1 - General Ulcer Assessment Start: 06/06/24 12:38 Freq: Status: Active Protocol: .LOWEXT Activity Type Activity Date Activity User E-sign Co-sign Detail Recorded Client Recorded Date Recorded By Document 06/06/24 12:38 MT [id number] 06/06/24 12:45 MT Document 06/13/24 11:46 KW [id number] 06/13/24 11:54 KW Document 06/20/24 11:09 [id number] 06/20/24 11:12 06/06/24 06/13/24 06/20/24 12:38 11:46 11:09 - Today's Visit Information Type of service Follow-up Visit Follow-up Visit Follow-up Visit (Physician/MANAGER ENTERPRISE CONTENT MANAGEMENT (Physician/MANAGER ENTERPRISE CONTENT MANAGEMENT (Physician/MANAGER ENTERPRISE CONTENT MANAGEMENT ) ) ) Arrival Mode Ambulatory, Wheelchair Wheelchair Transfer Assistance None Accompanied by Patient Identification Verified (Name & Yes Yes Yes ) Safety Precautions Fall Prevention Blood Sugar Stated by Patient Height and Weight Body Mass Index (BMI) 37.3 37.3 37.3 BMI Classification Obese Obese Obese Vital Signs Temperature (97.8 F-99.1 F) 97 F L 97.6 F L Temperature Source Temporal Temporal Pulse Rate (60-100) 78 59 L 69 Pulse Location Monitor Monitor Monitor Respiratory Rate (12-18) 18 18 16 Respiratory rate source Observation Observation Observation Oxygen Delivery Method Room Air Room Air Room Air Blood Pressure (90/60-120/80) 156/60 H 122/103 H 145/67 H Blood Pressure Mean (mm Hg) 92 109 93 Source Monitor Monitor Monitor Position Sitting Semi-Fowlers Sitting Blood Pressure Location Left Arm Left Arm Right Arm History Since Last Visit- (Skip if this is Patient's initial visit) Have you changed medications since your No No last visit? Any new allergies or adverse reactions No No Had a fall/change in ADL's that may No No increase risk of falls Signs or symptoms of abuse and/or No No neglect since last visit Have you been in the hospital since your No No last visit? Has dressing in place as prescribed Yes Yes Yes Has compression in place as prescribed Yes Yes Yes Has offloadiing in place as prescribed Yes N/A N/A Experienced any changes in pain level or Yes No No management Left Footwear Regular Shoe Regular Shoe Diabetic Shoe Right Footwear Regular Shoe Regular Shoe Diabetic Shoe Pain Scale: 0-10 Numeric Is Patient Pain Free? Yes Yes Yes WC - Nurse 1 - General Ulcer Measurement Start: 06/06/24 12:38 Freq: Status: Active Protocol: Activity Type Activity Date Activity User E-sign Co-sign Detail Recorded Client Recorded Date Recorded By Document 06/06/24 12:38 MT [id number] 06/06/24 12:45 MT Document 06/13/24 11:46 KW [id number] 06/13/24 11:54 KW Document 06/20/24 11:09 [id number] 06/20/24 11:12 06/06/24 06/13/24 06/20/24 12:38 11:46 11:09 Wound Center Nurse 1 #4- L MED HEEL -Combined with other wound No -Current Size (cm) - Length 3.5 2.5 3.0 -Current Size (cm) - Width 5.7 5 5.0 -Current Size (cm) - Depth 0.1 0.1 0.1 -Total Square Cm 19.95 12.5 15.00 -Date of Last Picture (Recall this 06/13/24 field) -Photo Taken Yes No -Epithelialization Medium 34-66% -Tunneling No No -Undermining/Tunneling No No -Circular Undermining No No -Exudate Amt Medium Medium Medium -Exudate Type Serosanguineous Yellow/Green Yellow/Green -Wound Margin Distinct, Distinct, Distinct, Outline Outline Outline Attached Attached Attached -Granulation Amt Medium (34-66%) Small (1-33%) Small (1-33%) -Granulation Quality [place] -Slough/Fibrin Yes Yes -Necrosis Amt Medium (34-66%) Large (67-100%) Medium (34-66%) -Necrotic Tissue Type Adherent Slough Adherent Slough -Structure Exposed N/A -Texture (Hananh-wound Skin Appearance) Not Assessed Assessed Assessed -Moisture (Hannah-wound Skin Appearance) Maceration Assessed Assessed, Maceration -Color (Hannah-wound Skin Appearance) Assessed Assessed Assessed -Temperature (Hannah-wound Skin No Abnormality No Abnormality No Abnormality Appearance) (Pt Warm) (Pt Warm) (Pt Warm) -Tenderness on Palpation (Hannah-wound No No Skin Appearance) -Ulcer Cleansing Wound Cleanser Soap and Water Soap and Water -Foul Odor after Cleansing No No No -Anesthetic Used 5% Lidocaine 5% Lidocaine 5% Lidocaine Gel Gel Gel Lower Limb Edema Present Yes Yes Right Calf (cm) 45.7 30.5 Right Ankle (cm) 31.5 29.0 Left Calf (cm) 53.5 48.5 49.5 Left Ankle (cm) 29.7 32 30.5 WC - Nurse 2 - General Ulcer CM Notes Start: 06/06/24 12:38 Freq: Status: Active Protocol: Activity Type Activity Date Activity User E-sign Co-sign Detail Recorded Client Recorded Date Recorded By Document 06/06/24 12:54 [id number] 06/06/24 13:05 Document 06/13/24 12:11 [id number] 06/13/24 12:18 Document 06/20/24 11:29 [id number] 06/20/24 11:33 06/06/24 06/13/24 06/20/24 12:54 12:11 11:29 Wound Center Nurse 2 #4- L MED HEEL -Time 12:54 12:11 11:29 -Correct Patient Yes Yes Yes -Correct Side, Site, Position Yes Yes Yes -Correct Procedure Yes Yes Yes -Procedure Performed Yes Yes Yes -Type of Procedure Debridement Debridement Debridement -Clinical Debridement Subcutaneous Subcutaneous Subcutaneous -Tissue Removed Subcutaneous Subcutaneous Subcutaneous -Post Debridement (cm) - Length 3.7 3.0 2.6 -Post Debridement (cm) - Width 6.0 5.2 5.6 -Post Debridement (cm) - Depth 0.1 0.1 0.1 -Total Square (Post) (cm) 22.20 15.60 14.56 -Area of Debridement (cm) - Length 3.7 3.0 2.6 -Area of Debridement (cm) - Width 6 5.2 5.6 -Total Square (Area) (cm) 22.2 15.60 14.56 -Tunneling No No No -Undermining/Tunneling No No No -Circular Undermining No No No -Wound/Ulcer Outcome Not Healed Not Healed Not Healed -Ulcer Cleansing Rinsed/ Rinsed/ Rinsed/ Irrigated with Irrigated with Irrigated with Saline Saline Saline -Foul Odor after Cleansing No No No -Bioengineered Tissue Yes Yes Yes -Type of Bioengineered Tissue Epifix Mesh Epifix Mesh Epifix Mesh -Expiration Date 11/05/28 11/05/28 12/05/28 -Product Lot Number [id number] -Percent Used 100 100 100 -Lot number of Saline Used [id number] -Bleeding Controlled with Pressure Pressure Pressure -Treatment Response Procedure Procedure Procedure Tolerated Well Tolerated Well Tolerated Well -Offloading No No No -Debridement - Subq, 1st 20sq cm No No No -Apply Skin Sub - 1st 25 sq cm - Feet 1 1 1 -Epifix Mesh Application 1-4 (per sq 11 11 11 cm) Pain Scale: 0-10 Numeric Is Patient Pain Free? Yes Yes Yes WC - Nurse 3 - General Ulcer D/C NN Start: 06/06/24 12:38 Freq: Status: Active Protocol: Activity Type Activity Date Activity User E-sign Co-sign Detail Recorded Client Recorded Date Recorded By Document 06/06/24 13:25 DL [id number] 06/06/24 13:27 DL Document 06/13/24 12:23 GM [id number] 06/13/24 12:24 GM Document 06/20/24 11:48 CP [id number] 06/20/24 11:56 CP 06/06/24 06/13/24 06/20/24 13:25 12:23 11:48 Wound Care Center Nurse 3 #4- L MED HEEL -Ulcer Cleansing Not Cleansed Not Cleansed -Foul Odor after Cleansing No No -Negative Pressure Wound Therapy N/A -Other Dressing Epifix -Primary Dressing Covered/Secured with Dry Gauze & Dry Gauze,Dry Roll Gauze, Gauze & Roll Secured with Gauze,Secured Tape with Tape,Other -Other Covering ABD/Nurses Hat ABD pad -Wound Comment(s) abd and kerlix LLE -Lotion applied to leg before No compression wrap -Compression Wrap Kd Wrap Kd Wrap BLE -Lotion applied to leg before No compression wrap -Compression Wrap Kd Wrap Kd Wrap Treatment Response Procedure Tolerated Well Pain Scale: 0-10 Numeric Is Patient Pain Free? Yes Yes Yes WC - Visit Discharge Discharge Condition Stable Stable Stable Ambulatory Status Wheelchair Wheelchair Wheelchair Transportation Private Auto Private Auto Private Auto Clinical Summary of Care Provided Yes Yes Notes: Pt wishes to Continue CircAid to RLE, refusing kd to RLE at this time. Facility Type Home Health Orders Sent Yes Assessment/Plan Assessment/Plan (1) Non-pressure chronic ulcer of left heel and midfoot with fat layer exposed: CODE(S): L97.422 - Non-pressure chronic ulcer of left heel and midfoot with fat layer exposed PLAN: Patient was examined and evaluated. All findings were discussed with the patient. All questions were answered to the patient's satisfaction. Excisional debridement down to including subcutaneous tissue with a number 5 mm dermal curette to the left medial heel without incident. Predebridement measurement was 2.4 x 5.4 x 0.1 cm.. Postdebridement measurement is 2.6 x 5.6 x 0.1 cm. EpiFix 4.0 x 4.5 cm was applied to the left heel full-thickness ulceration with 100% use. Seventh application. The graft site was free and clear of any infection. The wound/skin graft substitute was dressed with nonadherent bandage secured in place with Steri-Strips followed by bolster dressing as well as a Kd wraps. Encouraged the patient continue to do home physical therapy which he will continue to do. Encourage strict blood sugar control. Educated the patient on the importance of having the kd wraps secured to the by the lower extremity help decrease his pain and swelling. Follow-up at the wound care center with Dr. Spann in 1 week.
[2024-06-27 11:40] VITALS: BP 127/73; PULSE 58; RESP 18; TEMP 36.8; BMI 37.3
--- NOTE | 2024-06-27 12:34 | PN.PCM_ITS ---
History of Present Illness Date of Service: 06/27/24 Chief Complaint: Right foot ulcer History of Wound: Chronic ulceration to the left heel and anterior right leg. Progress of Wound: Full-thickness wound left heel stable no sign of infection. Subjective Subjective Mr. Renae is a 78-year-old diabetic male presented wound care center today follow-up evaluation of full-thickness wound to the medial aspect of the left heel. He has left the amniotic skin graft clean dry and intact. He is wrapping with Kd wrap. He is pumping as instructed. He notices great improvement to his leg size as well as full-thickness wound with outer dressing changes. He denies trauma. Denies constitutional symptoms. No other pedal complaints at this time. Objective Data Objective Data Vital Signs: Vital Signs Temp Pulse Resp BP O2 Del Method 98.2 F 58 L 18 127/73 H Room Air 06/27/24 11:40 06/27/24 11:40 06/27/24 11:40 06/27/24 11:40 06/27/24 11:40 Oxygen Delivery Method Room Air Weight: 124.738 kg Body Mass Index (BMI) 37.3 Physical Exam Narrative Vascular: DP and PT pulses are faintly palpable. CFT is brisk. Nonpitting edema appreciated to bilateral lower extremity. Skin temperature gradient warm to warm from proximal ankles to distal digit bilateral. Evidence of hemosiderin deposits bilateral. No erythema. No ecchymosis. Neurological: Light touch intact. Protective station is diminished. Dermatological: Full-thickness ulceration to the left medial heel measuring 3.0 x 5.1 x 0.2 cm wound base is fibrogranular in nature. Macerated periwound, improving Excisional debridement using the [employer] ultrasonic debrider down to including subcutaneous tissue to the left medial heel without incident. Predebridement measurement was 2.6 x 4.8 x 0.1 cm. Postdebridement measurement is 3.0 x 5.1 x 0.2 cm. EpiFix 4.0 x 4.5 cm was applied to the left heel full-thickness ulceration with 100% use. 8th application. The graft site was free and clear of any infection. The wound/skin graft substitute was dressed with nonadherent bandage secured in place with Steri-Strips followed by bolster dressing as well as a Kd wraps. Musculoskeletal: Muscle strength is 5 out of 5 in all quadrants bilateral. No pain on palpation to full-thickness wound on the left leg or right anterior leg. No pain with calf pressure. Debridement Note Debridement Note Debridement Free Text: Excisional debridement using the myReteonix ultrasonic debrider down to including subcutaneous tissue to the left medial heel without incident. Predebridement measurement was 2.6 x 4.8 x 0.1 cm. Postdebridement measurement is 3.0 x 5.1 x 0.2 cm. EpiFix 4.0 x 4.5 cm was applied to the left heel full-thickness ulceration with 100% use. 8th application. The graft site was free and clear of any infection. The wound/skin graft substitute was dressed with nonadherent bandage secured in place with Steri-Strips followed by bolster dressing as well as a Kd wraps. Post-Debridement Measurements and Additional Note: Post-Debridement Measurements/Treatment - Nurse 1 - General Ulcer Assessment Start: 06/06/24 12:38 Freq: Status: Active Protocol: JORGE Activity Type Activity Date Activity User E-sign Co-sign Detail Recorded Client Recorded Date Recorded By Document 06/06/24 12:38 MT [id number] 06/06/24 12:45 MT Document 06/13/24 11:46 KW [id number] 06/13/24 11:54 KW Document 06/20/24 11:09 [id number] 06/20/24 11:12 Document 06/27/24 11:40 KW [id number] 06/27/24 11:56 KW 06/06/24 06/13/24 06/20/24 12:38 11:46 11:09 - Today's Visit Information Type of service Follow-up Visit Follow-up Visit Follow-up Visit (Physician/DOUGHNUT MACHINE OPERATOR HELPER (Physician/DOUGHNUT MACHINE OPERATOR HELPER (Physician/DOUGHNUT MACHINE OPERATOR HELPER ) ) ) Arrival Mode Ambulatory, Wheelchair Wheelchair Transfer Assistance None Accompanied by Patient Identification Verified (Name & Yes Yes Yes ) Safety Precautions Fall Prevention Blood Sugar Stated by Patient Height and Weight Body Mass Index (BMI) 37.3 37.3 37.3 BMI Classification Obese Obese Obese Vital Signs Temperature (97.8 F-99.1 F) 97 F L 97.6 F L Temperature Source Temporal Temporal Pulse Rate (60-100) 78 59 L 69 Pulse Location Monitor Monitor Monitor Respiratory Rate (12-18) 18 18 16 Respiratory rate source Observation Observation Observation Oxygen Delivery Method Room Air Room Air Room Air Blood Pressure (90/60-120/80) 156/60 H 122/103 H 145/67 H Blood Pressure Mean (mm Hg) 92 109 93 Source Monitor Monitor Monitor Position Sitting Semi-Fowlers Sitting Blood Pressure Location Left Arm Left Arm Right Arm History Since Last Visit- (Skip if this is Patient's initial visit) Have you changed medications since your No No last visit? Any new allergies or adverse reactions No No Had a fall/change in ADL's that may No No increase risk of falls Signs or symptoms of abuse and/or No No neglect since last visit Have you been in the hospital since your No No last visit? Has dressing in place as prescribed Yes Yes Yes Has compression in place as prescribed Yes Yes Yes Has offloadiing in place as prescribed Yes N/A N/A Experienced any changes in pain level or Yes No No management Left Footwear Regular Shoe Regular Shoe Diabetic Shoe Right Footwear Regular Shoe Regular Shoe Diabetic Shoe Pain Scale: 0-10 Numeric Is Patient Pain Free? Yes Yes Yes 06/27/24 11:40 WC - Today's Visit Information Type of service Follow-up Visit (Physician/DOUGHNUT MACHINE OPERATOR HELPER ) Arrival Mode Wheelchair Transfer Assistance Accompanied by Patient Identification Verified (Name & Yes ) Safety Precautions Blood Sugar Height and Weight Body Mass Index (BMI) 37.3 BMI Classification Obese Vital Signs Temperature (97.8 F-99.1 F) 98.2 F Temperature Source Temporal Pulse Rate (60-100) 58 L Pulse Location Monitor Respiratory Rate (12-18) 18 Respiratory rate source Observation Oxygen Delivery Method Room Air Blood Pressure (90/60-120/80) 127/73 H Blood Pressure Mean (mm Hg) 91 Source Monitor Position Sitting Blood Pressure Location Left Forearm History Since Last Visit- (Skip if this is Patient's initial visit) Have you changed medications since your No last visit? Any new allergies or adverse reactions No Had a fall/change in ADL's that may No increase risk of falls Signs or symptoms of abuse and/or No neglect since last visit Have you been in the hospital since your No last visit? Has dressing in place as prescribed Yes Has compression in place as prescribed Yes Has offloadiing in place as prescribed N/A Experienced any changes in pain level or No management Left Footwear Regular Shoe Right Footwear Regular Shoe Pain Scale: 0-10 Numeric Is Patient Pain Free? Yes WC - Nurse 1 - General Ulcer Measurement Start: 06/06/24 12:38 Freq: Status: Active Protocol: Activity Type Activity Date Activity User E-sign Co-sign Detail Recorded Client Recorded Date Recorded By Document 06/06/24 12:38 MT [id number] 06/06/24 12:45 MT Document 06/13/24 11:46 KW [id number] 06/13/24 11:54 KW Document 06/20/24 11:09 GM [id number] 06/20/24 11:12 GM Document 06/27/24 11:40 KW [id number] 06/27/24 11:56 KW 06/06/24 06/13/24 06/20/24 12:38 11:46 11:09 Wound Center Nurse 1 #4- L MED HEEL -Combined with other wound No -Current Size (cm) - Length 3.5 2.5 3.0 -Current Size (cm) - Width 5.7 5 5.0 -Current Size (cm) - Depth 0.1 0.1 0.1 -Total Square Cm 19.95 12.5 15.00 -Date of Last Picture (Recall this 06/13/24 field) -Photo Taken Yes No -Epithelialization Medium 34-66% -Tunneling No No -Undermining/Tunneling No No -Undermining/Tunneling Starts (O'clock ) -Undermining/Tunneling Ends (O'clock) -Maximum Distance (cm) -Circular Undermining No No -Exudate Amt Medium Medium Medium -Exudate Type Serosanguineous Yellow/Green Yellow/Green -Wound Margin Distinct, Distinct, Distinct, Outline Outline Outline Attached Attached Attached -Granulation Amt Medium (34-66%) Small (1-33%) Small (1-33%) -Granulation Quality [place],Red [place] -Slough/Fibrin Yes Yes -Necrosis Amt Medium (34-66%) Large (67-100%) Medium (34-66%) -Necrotic Tissue Type Adherent Slough Adherent Slough -Structure Exposed N/A -Texture (Hannah-wound Skin Appearance) Not Assessed Assessed Assessed -Moisture (Hannah-wound Skin Appearance) Maceration Assessed Assessed, Maceration -Color (Hannah-wound Skin Appearance) Assessed Assessed Assessed -Temperature (Hannah-wound Skin No Abnormality No Abnormality No Abnormality Appearance) (Pt Warm) (Pt Warm) (Pt Warm) -Tenderness on Palpation (Hannah-wound No No Skin Appearance) -Ulcer Cleansing Wound Cleanser Soap and Water Soap and Water -Foul Odor after Cleansing No No No -Anesthetic Used 5% Lidocaine 5% Lidocaine 5% Lidocaine Gel Gel Gel Lower Limb Edema Present Yes Yes Right Calf (cm) 45.7 30.5 Right Ankle (cm) 31.5 29.0 Left Calf (cm) 53.5 48.5 49.5 Left Ankle (cm) 29.7 32 30.5 06/27/24 11:40 Wound Center Nurse 1 #4- L MED HEEL -Combined with other wound -Current Size (cm) - Length 5 -Current Size (cm) - Width 3 -Current Size (cm) - Depth 0.1 -Total Square Cm 15 -Date of Last Picture (Recall this field) -Photo Taken -Epithelialization -Tunneling -Undermining/Tunneling Yes -Undermining/Tunneling Starts (O'clock 9 ) -Undermining/Tunneling Ends (O'clock) 11 -Maximum Distance (cm) 0.3 -Circular Undermining -Exudate Amt Large -Exudate Type Serosanguineous -Wound Margin Distinct, Outline Attached -Granulation Amt Large (67-100%) -Granulation Quality [place],Red -Slough/Fibrin -Necrosis Amt Medium (34-66%) -Necrotic Tissue Type Adherent Slough -Structure Exposed -Texture (Hannah-wound Skin Appearance) Assessed -Moisture (Hannah-wound Skin Appearance) Assessed, Maceration -Color (Hannah-wound Skin Appearance) Assessed -Temperature (Hannah-wound Skin No Abnormality Appearance) (Pt Warm) -Tenderness on Palpation (Hannah-wound No Skin Appearance) -Ulcer Cleansing Soap and Water -Foul Odor after Cleansing No -Anesthetic Used 5% Lidocaine Gel Lower Limb Edema Present Right Calf (cm) Right Ankle (cm) Left Calf (cm) 50.3 Left Ankle (cm) 29.5 WC - Nurse 2 - General Ulcer CM Notes Start: 06/06/24 12:38 Freq: Status: Active Protocol: Activity Type Activity Date Activity User E-sign Co-sign Detail Recorded Client Recorded Date Recorded By Document 06/06/24 12:54 AMPARO [id number] 06/06/24 13:05 Document 06/13/24 12:11 [id number] 06/13/24 12:18 Document 06/20/24 11:29 [id number] 06/20/24 11:33 Document 06/27/24 12:16 [id number] 06/27/24 12:24 JF 06/06/24 06/13/24 06/20/24 12:54 12:11 11:29 Wound Center Nurse 2 #4- L MED HEEL -Time 12:54 12:11 11:29 -Correct Patient Yes Yes Yes -Correct Side, Site, Position Yes Yes Yes -Correct Procedure Yes Yes Yes -Procedure Performed Yes Yes Yes -Type of Procedure Debridement Debridement Debridement -Clinical Debridement Subcutaneous Subcutaneous Subcutaneous -Tissue Removed Subcutaneous Subcutaneous Subcutaneous -Post Debridement (cm) - Length 3.7 3.0 2.6 -Post Debridement (cm) - Width 6.0 5.2 5.6 -Post Debridement (cm) - Depth 0.1 0.1 0.1 -Total Square (Post) (cm) 22.20 15.60 14.56 -Area of Debridement (cm) - Length 3.7 3.0 2.6 -Area of Debridement (cm) - Width 6 5.2 5.6 -Total Square (Area) (cm) 22.2 15.60 14.56 -Tunneling No No No -Undermining/Tunneling No No No -Circular Undermining No No No -Wound/Ulcer Outcome Not Healed Not Healed Not Healed -Ulcer Cleansing Rinsed/ Rinsed/ Rinsed/ Irrigated with Irrigated with Irrigated with Saline Saline Saline -Foul Odor after Cleansing No No No -Bioengineered Tissue Yes Yes Yes -Type of Bioengineered Tissue Epifix Mesh Epifix Mesh Epifix Mesh -Expiration Date 11/05/28 11/05/28 12/05/28 -Product Lot Number [id number] -Percent Used 100 100 100 -Lot number of Saline Used [id number] -Bleeding Controlled with Pressure Pressure Pressure -Treatment Response Procedure Procedure Procedure Tolerated Well Tolerated Well Tolerated Well -Offloading No No No -Debridement - Subq, 1st 20sq cm No No No -Apply Skin Sub - 1st 25 sq cm - Feet 1 1 1 -Epifix Mesh Application 1-4 (per sq 11 11 11 cm) Pain Scale: 0-10 Numeric Is Patient Pain Free? Yes Yes Yes 06/27/24 12:16 Wound Center Nurse 2 #4- L MED HEEL -Time 12:17 -Correct Patient Yes -Correct Side, Site, Position Yes -Correct Procedure Yes -Procedure Performed Yes -Type of Procedure Debridement -Clinical Debridement Subcutaneous -Tissue Removed Subcutaneous -Post Debridement (cm) - Length 3.0 -Post Debridement (cm) - Width 5.1 -Post Debridement (cm) - Depth 0.2 -Total Square (Post) (cm) 15.30 -Area of Debridement (cm) - Length 3.0 -Area of Debridement (cm) - Width 5.1 -Total Square (Area) (cm) 15.30 -Tunneling No -Undermining/Tunneling No -Circular Undermining No -Wound/Ulcer Outcome Not Healed -Ulcer Cleansing Rinsed/ Irrigated with Saline -Foul Odor after Cleansing No -Bioengineered Tissue Yes -Type of Bioengineered Tissue Epifix Mesh -Expiration Date 12/05/28 -Product Lot Number [id number] -Percent Used 100 -Lot number of Saline Used [id number] -Bleeding Controlled with Pressure -Treatment Response Procedure Tolerated Well -Offloading No -Debridement - Subq, 1st 20sq cm No -Apply Skin Sub - 1st 25 sq cm - Feet 1 -Epifix Mesh Application 1-4 (per sq 11 cm) Pain Scale: 0-10 Numeric Is Patient Pain Free? Yes WC - Nurse 3 - General Ulcer D/C NN Start: 06/06/24 12:38 Freq: Status: Active Protocol: Activity Type Activity Date Activity User E-sign Co-sign Detail Recorded Client Recorded Date Recorded By Document 06/06/24 13:25 DL [id number] 06/06/24 13:27 DL Document 06/13/24 12:23 GM [id number] 06/13/24 12:24 GM Document 06/20/24 11:48 CP [id number] 06/20/24 11:56 CP Document 06/27/24 12:28 RB [id number] 06/27/24 12:29 RB 06/06/24 06/13/24 06/20/24 13:25 12:23 11:48 Wound Care Center Nurse 3 #4- L MED HEEL -Ulcer Cleansing Not Cleansed Not Cleansed -Foul Odor after Cleansing No No -Negative Pressure Wound Therapy N/A -Other Dressing Epifix -Primary Dressing Covered/Secured with Dry Gauze & Dry Gauze,Dry Roll Gauze, Gauze & Roll Secured with Gauze,Secured Tape with Tape,Other -Other Covering ABD/Nurses Hat ABD pad -Wound Comment(s) abd and kerlix LLE -Lotion applied to leg before No compression wrap -Compression Wrap Kd Wrap Kd Wrap BLE -Lotion applied to leg before No compression wrap -Compression Wrap Kd Wrap Kd Wrap Treatment Response Procedure Tolerated Well Pain Scale: 0-10 Numeric Is Patient Pain Free? Yes Yes Yes WC - Visit Discharge Discharge Condition Stable Stable Stable Ambulatory Status Wheelchair Wheelchair Wheelchair Transportation Private Auto Private Auto Private Auto Medication Reconcilliation completed & provided to patient/care provider Clinical Summary of Care Provided Yes Yes Notes: Pt wishes to Continue CircAid to RLE, refusing kd to RLE at this time. Facility Type Home Health Orders Sent Yes 06/27/24 12:28 Wound Care Center Nurse 3 #4- L MED HEEL -Ulcer Cleansing -Foul Odor after Cleansing -Negative Pressure Wound Therapy -Other Dressing nurses hat / kerlix / KD -Primary Dressing Covered/Secured with -Other Covering -Wound Comment(s) LLE -Lotion applied to leg before compression wrap -Compression Wrap BLE -Lotion applied to leg before compression wrap -Compression Wrap Kd Wrap Treatment Response Procedure Tolerated Well Pain Scale: 0-10 Numeric Is Patient Pain Free? Yes WC - Visit Discharge Discharge Condition Stable Ambulatory Status Wheelchair Transportation Private Auto Medication Reconcilliation completed & No provided to patient/care provider Clinical Summary of Care Provided Yes Notes: Facility Type Orders Sent Assessment/Plan Assessment/Plan (1) Non-pressure chronic ulcer of left heel and midfoot with fat layer exposed: CODE(S): L97.422 - Non-pressure chronic ulcer of left heel and midfoot with fat layer exposed PLAN: Patient was examined and evaluated. All findings were discussed with the patient. All questions were answered to the patient's satisfaction. Excisional debridement using the [employer] ultrasonic debrider down to including subcutaneous tissue to the left medial heel without incident. Predebridement measurement was 2.6 x 4.8 x 0.1 cm. Postdebridement measurement is 3.0 x 5.1 x 0.2 cm. EpiFix 4.0 x 4.5 cm was applied to the left heel full-thickness ulceration with 100% use. 8th application. The graft site was free and clear of any infection. The wound/skin graft substitute was dressed with nonadherent bandage secured in place with Steri-Strips followed by bolster dressing as well as a Kd wraps. Encouraged the patient continue to do home physical therapy which he will continue to do. Encourage strict blood sugar control. Follow-up at the wound care center with Dr. Spann in 1 week.
--- NOTE | 2024-07-02 15:33 | WC ---
Pipe physical therapist called to report pt fell over the weekend. Was bending forward to fix his shoe and tipped his wheelchair over. Was not needed to go to the hospital or have any new wounds to address..
[2024-07-04 09:13] VITALS: BP 135/72; PULSE 68; RESP 18; TEMP 36.9; BMI 37.3
--- NOTE | 2024-07-04 13:48 | WC ---
PHOTO 07/04/24 LEFT MEDIAL HEEL
--- NOTE | 2024-07-09 11:01 | PN.PCM_ITS ---
History of Present Illness Date of Service: 07/04/24 Chief Complaint: Right foot ulcer History of Wound: Chronic ulceration to the left heel and anterior right leg. Progress of Wound: Full-thickness wound left heel stable no sign of infection. Subjective Subjective Patient is a 78-year-old male presenting to wound care center today for follow- up evaluation of left medial heel wound with amniotic skin graft substitute. Patient has left his dressing clean dry and intact. He is compressing as well as using his mechanical pumps of bilateral lower extremity. He is working with home physical therapy for his right knee contracture. Doing well. Has no pain. Blood sugars well-controlled. Denies trauma. Denies constitutional symptoms. No other pedal complaints at this time. Objective Data Objective Data Vital Signs: Vital Signs Temp Pulse Resp BP O2 Del Method 98.4 F 68 18 135/72 H Room Air 07/04/24 09:13 07/04/24 09:13 07/04/24 09:13 07/04/24 09:13 06/27/24 11:40 Oxygen Delivery Method Room Air Weight: 124.738 kg Body Mass Index (BMI) 37.3 Physical Exam Narrative Vascular: DP and PT pulses are faintly palpable. CFT is brisk. Nonpitting edema appreciated to bilateral lower extremity. Skin temperature gradient warm to warm from proximal ankles to distal digit bilateral. Evidence of hemosiderin deposits bilateral. No erythema. No ecchymosis. Neurological: Light touch intact. Protective station is diminished. Dermatological: Full-thickness ulceration to the left medial heel measuring 2.8 x 4.8 x 0.1 cm. wound base is fibrogranular in nature. Macerated periwound, improving Excisional debridement using the 5 mm dermal currette down to including subcutaneous tissue to the left medial heel without incident. Predebridement measurement was 2.5 x 4.5 x 0.1 cm. Postdebridement measurement is 2.8 x 4.8 x 0.1 cm. EpiFix 4.0 x 4.5 cm was applied to the left heel full-thickness ulceration with 100% use. 9th application. The graft site was free and clear of any infection. The wound/skin graft substitute was dressed with nonadherent bandage secured in place with Steri-Strips followed by bolster dressing as well as a Kd wraps. Musculoskeletal: Muscle strength is 5 out of 5 in all quadrants bilateral. No pain on palpation to full-thickness wound on the left leg or right anterior leg. No pain with calf pressure. Assessment/Plan Assessment/Plan (1) Non-pressure chronic ulcer of left heel and midfoot with fat layer exposed: CODE(S): L97.422 - Non-pressure chronic ulcer of left heel and midfoot with fat layer exposed PLAN: Patient was examined and evaluated. All findings were discussed with the patient. All questions were answered to the patient's satisfaction. Excisional debridement using the 5 mm dermal currette down to including subcutaneous tissue to the left medial heel without incident. Predebridement measurement was 2.5 x 4.5 x 0.1 cm. Postdebridement measurement is 2.8 x 4.8 x 0.1 cm. EpiFix 4.0 x 4.5 cm was applied to the left heel full-thickness ulceration with 100% use. 9th application. The graft site was free and clear of any infection. The wound/skin graft substitute was dressed with nonadherent bandage secured in place with Steri-Strips followed by bolster dressing as well as a Kd wraps. Encouraged the patient continue to do home physical therapy which he will continue to do. Encourage strict blood sugar control. Follow-up at the wound care center with Dr. Spann in 1 week.
== END 2024-07-04 23:59 | disposition home or self-care (01) ==
LOC: WC 09:00
PROVIDERS: PCP Internal Medicine; Referring Provider Podiatrist Foot & Ankle Surgery; Visit Provider Podiatrist Foot & Ankle Surgery
DX: E11.621 Type 2 diabetes mellitus with foot ulcer (principal); L97.422 Non-pressure chronic ulcer of left heel and midfoot with fat layer exposed; Z79.4 Long term (current) use of insulin; L60.1 Onycholysis; M24.561 Contracture, right knee; Z79.01 Long term (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 of anticoagulants; Z79.890 Hormone replacement therapy; Z79.899 Other long term (current) drug therapy
CPT/HCPCS: 15275; Q4186

== ENCOUNTER 2024-08-01 12:15 | Outpatient (RCR) | payer MEDICARE, OTHER, SELFPAY ==
[2024-07-05 00:35] VITALS: BP 135/72; PULSE 68; RESP 18; TEMP 36.9; BMI 37.3
[2024-07-11 13:31] VITALS: BP 135/59; PULSE 70; RESP 18; TEMP 36.3; BMI 37.3
--- NOTE | 2024-07-11 14:02 | PCM.WC.PN ---
History of Present Illness Date of Service: 07/11/24 Chief Complaint: Right foot ulcer History of Wound: Chronic ulceration to the left heel and anterior right leg. Progress of Wound: Stable full-thickness wound medial left heel. Subjective Subjective Mr. Renae is a 78-year-old diabetic male presented wound care center today for follow-up evaluation of left heel wound with amniotic skin graft substitute. Patient has been doing compression daily as discussed. He admits to very little draining to the area on the left foot at this time. He is working with home physical therapy. He denies trauma. Denies constitutional symptoms. No other pedal complaints at this time. Objective Data Objective Data Vital Signs: Vital Signs Temp Pulse Resp BP O2 Del Method 97.4 F L 70 18 135/59 H Room Air 07/11/24 13:31 07/11/24 13:31 07/11/24 13:31 07/11/24 13:31 07/11/24 13:31 Oxygen Delivery Method Room Air Weight: 124.738 kg Body Mass Index (BMI) 37.3 Physical Exam Narrative Vascular: DP and PT pulses are faintly palpable. CFT is brisk. Nonpitting edema appreciated to bilateral lower extremity. Skin temperature gradient warm to warm from proximal ankles to distal digit bilateral. Evidence of hemosiderin deposits bilateral. No erythema. No ecchymosis. Neurological: Light touch intact. Protective station is diminished. Dermatological: Full-thickness ulceration to the left medial heel measuring 3.0 x 4.8 x 0.2 cm.. wound base is fibrogranular in nature. Macerated periwound, improving Excisional debridement using the 5 mm dermal currette down to including subcutaneous tissue to the left medial heel without incident. Predebridement measurement was 2.7 x 4.6 x 0.1 cm. Postdebridement measurement is 3.0 x 4.8 x 0.2 cm. EpiFix 4.0 x 4.5 cm was applied to the left heel full-thickness ulceration with 100% use. 10th application. The graft site was free and clear of any infection. The wound/skin graft substitute was dressed with nonadherent bandage secured in place with Steri-Strips followed by bolster dressing as well as a Kd wraps. Musculoskeletal: Muscle strength is 5 out of 5 in all quadrants bilateral. No pain on palpation to full-thickness wound on the left leg or right anterior leg. No pain with calf pressure. Debridement Note Debridement Note Debridement Free Text: Excisional debridement using the 5 mm dermal currette down to including subcutaneous tissue to the left medial heel without incident. Predebridement measurement was 2.7 x 4.6 x 0.1 cm. Postdebridement measurement is 3.0 x 4.8 x 0.2 cm. EpiFix 4.0 x 4.5 cm was applied to the left heel full-thickness ulceration with 100% use. 10th application. The graft site was free and clear of any infection. The wound/skin graft substitute was dressed with nonadherent bandage secured in place with Steri-Strips followed by bolster dressing as well as a Kd wraps. Post-Debridement Measurements and Additional Note: Post-Debridement Measurements/Treatment - Nurse 1 - General Ulcer Assessment Start: 07/11/24 13:31 Freq: Status: Active Protocol: [place] Activity Type Activity Date Activity User E-sign Co-sign Detail Recorded Client Recorded Date Recorded By Document 07/11/24 13:31 [id number] 07/11/24 13:39 07/11/24 13:31 - Today's Visit Information Type of service Follow-up Visit (Physician/MEDICAL ADMINISTRATIVE SPECIALIST ) Arrival Mode Wheelchair Accompanied by Patient Identification Verified (Name & Yes ) Height and Weight Body Mass Index (BMI) 37.3 BMI Classification Obese Vital Signs Temperature (97.8 F-99.1 F) 97.4 F L Temperature Source Temporal Pulse Rate (60-100) 70 Pulse Location Monitor Respiratory Rate (12-18) 18 Respiratory rate source Observation Oxygen Delivery Method Room Air Blood Pressure (90/60-120/80) 135/59 H Blood Pressure Mean (mm Hg) 84 Source Monitor Position Semi-Fowlers Blood Pressure Location Left Arm History Since Last Visit- (Skip if this is Patient's initial visit) Have you changed medications since your No last visit? Any new allergies or adverse reactions No Had a fall/change in ADL's that may No increase risk of falls Signs or symptoms of abuse and/or No neglect since last visit Have you been in the hospital since your No last visit? Has dressing in place as prescribed Yes Has compression in place as prescribed Yes Has offloadiing in place as prescribed N/A Experienced any changes in pain level or No management Left Footwear Regular Shoe Right Footwear Regular Shoe Pain Scale: 0-10 Numeric Is Patient Pain Free? Yes WC - Nurse 1 - General Ulcer Measurement Start: 07/11/24 13:31 Freq: Status: Active Protocol: Activity Type Activity Date Activity User E-sign Co-sign Detail Recorded Client Recorded Date Recorded By Document 07/11/24 13:31 ALEC [id number] 07/11/24 13:39 ALEC 07/11/24 13:31 Wound Center Nurse 1 #4- L MED HEEL -Current Size (cm) - Length 4.5 -Current Size (cm) - Width 6 -Current Size (cm) - Depth 0.1 -Total Square Cm 27.0 -Date of Last Picture (Recall this 07/11/24 field) -Exudate Amt Medium -Exudate Type Serosanguineous -Wound Margin Distinct, Outline Attached -Granulation Amt Small (1-33%) -Granulation Quality [place] -Necrosis Amt Large (67-100%) -Necrotic Tissue Type Adherent Slough -Texture (Hannah-wound Skin Appearance) Assessed -Moisture (Hannah-wound Skin Appearance) Assessed, Maceration -Color (Hannah-wound Skin Appearance) Assessed -Temperature (Hannah-wound Skin No Abnormality Appearance) (Pt Warm) -Tenderness on Palpation (Hannah-wound No Skin Appearance) -Ulcer Cleansing Soap and Water -Foul Odor after Cleansing No -Anesthetic Used 5% Lidocaine Gel - Nurse 2 - General Ulcer CM Notes Start: 07/11/24 13:31 Freq: Status: Active Protocol: Activity Type Activity Date Activity User E-sign Co-sign Detail Recorded Client Recorded Date Recorded By Document 07/11/24 13:54 AMPARO [id number] 07/11/24 13:59 AMPARO 07/11/24 13:54 Wound Center Nurse 2 -Time 13:54 -Correct Patient Yes -Correct Side, Site, Position Yes -Correct Procedure Yes -Procedure Performed Yes -Type of Procedure Debridement -Clinical Debridement Subcutaneous -Tissue Removed Subcutaneous -Post Debridement (cm) - Length 3.0 -Post Debridement (cm) - Width 4.8 -Post Debridement (cm) - Depth 0.2 -Total Square (Post) (cm) 14.40 -Area of Debridement (cm) - Length 3.0 -Area of Debridement (cm) - Width 4.8 -Total Square (Area) (cm) 14.40 -Tunneling No -Undermining/Tunneling No -Circular Undermining No -Wound/Ulcer Outcome Not Healed -Ulcer Cleansing Rinsed/ Irrigated with Saline -Foul Odor after Cleansing No -Bioengineered Tissue Yes -Type of Bioengineered Tissue Epifix Mesh -Expiration Date 12/05/28 -Product Lot Number [id number] -Percent Used 100 -Lot number of Saline Used [id number] -Bleeding Controlled with Pressure -Treatment Response Procedure Tolerated Well -Offloading No -Debridement - Subq, 1st 20sq cm No -Apply Skin Sub - 1st 25 sq cm - Feet 1 -Epifix Mesh Application 1-4 (per sq 11 cm) Pain Scale: 0-10 Numeric Is Patient Pain Free? Yes Assessment/Plan Assessment/Plan (1) Non-pressure chronic ulcer of left heel and midfoot with fat layer exposed: CODE(S): L97.422 - Non-pressure chronic ulcer of left heel and midfoot with fat layer exposed PLAN: Patient was examined and evaluated. All findings were discussed with the patient. All questions were answered to the patient's satisfaction. Excisional debridement using the 5 mm dermal currette down to including subcutaneous tissue to the left medial heel without incident. Predebridement measurement was 2.7 x 4.6 x 0.1 cm. Postdebridement measurement is 3.0 x 4.8 x 0.2 cm. EpiFix 4.0 x 4.5 cm was applied to the left heel full-thickness ulceration with 100% use. 10th application. The graft site was free and clear of any infection. The wound/skin graft substitute was dressed with nonadherent bandage secured in place with Steri-Strips followed by bolster dressing as well as a Kd wraps. Encouraged the patient continue to do home physical therapy which he will continue to do. Encourage strict blood sugar control. Follow-up at the wound care center with Dr. Spann in 1 week.
--- NOTE | 2024-07-12 10:37 | WC ---
PHOTO 07/11/24 LEFT HEEL
[2024-07-18 13:44] VITALS: BP 152/84; PULSE 73; RESP 18; TEMP 36.6; O2SAT 96; BMI 37.3
--- NOTE | 2024-07-18 14:47 | PCM.WC.PN ---
History of Present Illness Date of Service: 07/18/24 Chief Complaint: Right foot ulcer History of Wound: Chronic ulceration to the left heel and anterior right leg. Progress of Wound: Stable full-thickness wound medial left heel. Subjective Subjective Mr. Renae is a 78-year-old diabetic male presented with concern today follow-up evaluation of full-thickness wound to the medial aspect of left heel. Patient has been getting dressing changes from home health care and doing home physical therapy. He does admit to draining to the wound. There is a light odor to the area per his . He denies trauma. Denies constitutional symptoms. No other pedal complaints at this time. Objective Data Objective Data Vital Signs: Vital Signs Temp Pulse Resp BP Pulse Ox O2 Del Method 98 F 73 18 152/84 H 96 Room Air 07/18/24 13:44 07/18/24 13:44 07/18/24 13:44 07/18/24 13:44 07/18/24 13:44 07/18/24 13:44 Oxygen Delivery Method Room Air Weight: 124.738 kg Body Mass Index (BMI) 37.3 Physical Exam Narrative Vascular: DP and PT pulses are faintly palpable. CFT is brisk. Nonpitting edema appreciated to bilateral lower extremity. Skin temperature gradient warm to warm from proximal ankles to distal digit bilateral. Evidence of hemosiderin deposits bilateral. No erythema. No ecchymosis. Neurological: Light touch intact. Protective station is diminished. Dermatological: Full-thickness ulceration to the left medial heel measuring 2.8 x 4.5 x 0.2 cm wound base is fibrogranular in nature. Macerated periwound. Excisional debridement using the 5 mm dermal currette down to including subcutaneous tissue to the left medial heel without incident. Predebridement measurement was 2.6 x 4.4 x 0.1 cm.. Postdebridement measurement is 2.8 x 4.5 x 0.2 cm. Musculoskeletal: Muscle strength is 5 out of 5 in all quadrants bilateral. No pain on palpation to full-thickness wound on the left leg or right anterior leg. No pain with calf pressure. Debridement Note Debridement Note Debridement Free Text: Excisional debridement using the 5 mm dermal currette down to including subcutaneous tissue to the left medial heel without incident. Predebridement measurement was 2.6 x 4.4 x 0.1 cm.. Postdebridement measurement is 2.8 x 4.5 x 0.2 cm. Post-Debridement Measurements and Additional Note: Post-Debridement Measurements/Treatment WC - Nurse 1 - General Ulcer Assessment Start: 07/11/24 13:31 Freq: Status: Active Protocol: [facility]ORGE Activity Type Activity Date Activity User E-sign Co-sign Detail Recorded Client Recorded Date Recorded By Document 07/11/24 13:31 KW [id number] 07/11/24 13:39 KW Document 07/18/24 13:44 MT [id number] 07/18/24 13:52 MT 07/11/24 07/18/24 13:31 13:44 - Today's Visit Information Type of service Follow-up Visit Follow-up Visit (Physician/SENIOR BUYER PLANNER (Physician/SENIOR BUYER PLANNER ) ) Arrival Mode Wheelchair Wheelchair Accompanied by Patient Identification Verified (Name & Yes Yes ) Safety Precautions Fall Prevention Height and Weight Body Mass Index (BMI) 37.3 37.3 BMI Classification Obese Obese Vital Signs Temperature (97.8 F-99.1 F) 97.4 F L 98 F Temperature Source Temporal Temporal Pulse Rate (60-100) 70 73 Pulse Location Monitor Monitor Respiratory Rate (12-18) 18 18 Respiratory rate source Observation Observation Pulse Oximetry 96 Oxygen Delivery Method Room Air Room Air Blood Pressure (90/60-120/80) 135/59 H 152/84 H Blood Pressure Mean (mm Hg) 84 106 Source Monitor Monitor Position Semi-Fowlers Sitting Blood Pressure Location Left Arm Right Arm History Since Last Visit- (Skip if this is Patient's initial visit) Have you changed medications since your No last visit? Any new allergies or adverse reactions No Had a fall/change in ADL's that may No increase risk of falls Signs or symptoms of abuse and/or No neglect since last visit Have you been in the hospital since your No last visit? Has dressing in place as prescribed Yes Yes Has compression in place as prescribed Yes Yes Has offloadiing in place as prescribed N/A Yes Experienced any changes in pain level or No Yes management Left Footwear Regular Shoe Regular Shoe Right Footwear Regular Shoe Regular Shoe Pain Scale: 0-10 Numeric Is Patient Pain Free? Yes Yes - Nurse 1 - General Ulcer Measurement Start: 07/11/24 13:31 Freq: Status: Active Protocol: Activity Type Activity Date Activity User E-sign Co-sign Detail Recorded Client Recorded Date Recorded By Document 07/11/24 13:31 KW [id number] 07/11/24 13:39 KW Document 07/18/24 13:44 MT [id number] 07/18/24 13:52 MT 07/11/24 07/18/24 13:31 13:44 Wound Center Nurse 1 #4- L MED HEEL -Current Size (cm) - Length 4.5 -Current Size (cm) - Width 6 -Current Size (cm) - Depth 0.1 -Total Square Cm 27.0 -Date of Last Picture (Recall this 07/11/24 field) -Exudate Amt Medium Medium -Exudate Type Serosanguineous Purulent -Wound Margin Distinct, Flat & Intact Outline Attached -Granulation Amt Small (1-33%) Large (67-100%) -Granulation Quality [place] -Necrosis Amt Large (67-100%) Small (1-33%) -Necrotic Tissue Type Adherent Slough Adherent Slough -Texture (Hannah-wound Skin Appearance) Assessed Assessed -Moisture (Hannah-wound Skin Appearance) Assessed, Assessed Maceration -Color (Hannah-wound Skin Appearance) Assessed Assessed -Temperature (Hannah-wound Skin No Abnormality No Abnormality Appearance) (Pt Warm) (Pt Warm) -Tenderness on Palpation (Hannah-wound No No Skin Appearance) -Ulcer Cleansing Soap and Water -Foul Odor after Cleansing No No -Anesthetic Used 5% Lidocaine Gel Left Ankle (cm) 37.5 Left Foot (cm) 23.5 WC - Nurse 2 - General Ulcer CM Notes Start: 07/11/24 13:31 Freq: Status: Active Protocol: Activity Type Activity Date Activity User E-sign Co-sign Detail Recorded Client Recorded Date Recorded By Document 07/11/24 13:54 JF [id number] 07/11/24 13:59 JF Document 07/18/24 14:07 JF [id number] 07/18/24 14:08 07/11/24 07/18/24 13:54 14:07 Wound Center Nurse 2 #4- L MED HEEL -Time 13:54 14:07 -Correct Patient Yes Yes -Correct Side, Site, Position Yes Yes -Correct Procedure Yes Yes -Procedure Performed Yes Yes -Type of Procedure Debridement Debridement -Clinical Debridement Subcutaneous Subcutaneous -Tissue Removed Subcutaneous Subcutaneous -Post Debridement (cm) - Length 3.0 2.8 -Post Debridement (cm) - Width 4.8 4.5 -Post Debridement (cm) - Depth 0.2 0.2 -Total Square (Post) (cm) 14.40 12.60 -Area of Debridement (cm) - Length 3.0 2.8 -Area of Debridement (cm) - Width 4.8 4.5 -Total Square (Area) (cm) 14.40 12.60 -Tunneling No No -Undermining/Tunneling No No -Circular Undermining No No -Wound/Ulcer Outcome Not Healed Not Healed -Ulcer Cleansing Rinsed/ Rinsed/ Irrigated with Irrigated with Saline Saline -Foul Odor after Cleansing No No -Bioengineered Tissue Yes No -Type of Bioengineered Tissue Epifix Mesh -Expiration Date 12/05/28 -Product Lot Number [id number] -Percent Used 100 -Lot number of Saline Used [id number] -Bleeding Controlled with Pressure Pressure -Treatment Response Procedure Procedure Tolerated Well Tolerated Well -Offloading No No -Debridement - Subq, 1st 20sq cm No Yes -Apply Skin Sub - 1st 25 sq cm - Feet 1 -Epifix Mesh Application 1-4 (per sq 11 cm) Pain Scale: 0-10 Numeric Is Patient Pain Free? Yes Yes - Nurse 3 - General Ulcer D/C NN Start: 07/11/24 13:31 Freq: Status: Active Protocol: Activity Type Activity Date Activity User E-sign Co-sign Detail Recorded Client Recorded Date Recorded By Document 07/11/24 14:22 KW [id number] 07/11/24 14:22 Document 07/18/24 14:16 ML [id number] 07/18/24 14:17 ML 07/11/24 07/18/24 14:22 14:16 Wound Care Center Nurse 3 #4- L MED HEEL -Ulcer Cleansing Rinsed/ Irrigated with Saline -Primary Dressing Covered/Secured with Dry Gauze & Dry Gauze & Roll Gauze, Roll Gauze, Secured with Secured with Tape Tape -Other Covering kd LLE -Compression Wrap Kd Wrap -Other 2- 4in and 6 in Pain Scale: 0-10 Numeric Is Patient Pain Free? Yes Yes - Visit Discharge Discharge Condition Stable Ambulatory Status Wheelchair Transportation Private Auto Medication Reconcilliation completed & No provided to patient/care provider Clinical Summary of Care Provided Yes Assessment/Plan Assessment/Plan (1) Non-pressure chronic ulcer of left heel and midfoot with fat layer exposed: CODE(S): L97.422 - Non-pressure chronic ulcer of left heel and midfoot with fat layer exposed PLAN: Patient was examined and evaluated. All findings were discussed with the patient. All questions were answered to the patient's satisfaction. Excisional debridement using the 5 mm dermal currette down to including subcutaneous tissue to the left medial heel without incident. Predebridement measurement was 2.6 x 4.4 x 0.1 cm.. Postdebridement measurement is 2.8 x 4.5 x 0.2 cm. Area was wiped clean and patted dry. Culture taken to rule out any deep tissue infection due to the malodor. The wound is stable with most likely superficial contaminant. We will dress with Dakins solution dry sterile dressing and compression wrap. Patient will have every other day to daily dressing changes per home health care and . Antibiotics will be prescribed as needed. Follow-up at the wound care center with Dr. Spann in 1 week.
[2024-07-25 11:56] VITALS: BP 139/76; PULSE 100; RESP 18; TEMP 36.4; BMI 37.3
--- NOTE | 2024-07-25 13:04 | PN.PCM_ITS ---
History of Present Illness Date of Service: 07/25/24 Chief Complaint: Right foot ulcer History of Wound: Chronic ulceration to the left heel and anterior right leg. Progress of Wound: Stable full-thickness wound medial left heel. Subjective Subjective Mr. Renae is a 78-year-old diabetic male presented wound care center today for follow-up evaluation of full-thickness wound to the medial aspect of the left heel. Patient has been compliant with dressing changes and has been doing home physical therapy when he can. His admits that the wound is improving. His swelling in his left lower extremity is also improved with correct wrapping as well as pumping with mechanical pumps at home. His blood sugars well- controlled. He denies trauma or falls. Denies constitutional symptoms. No other pedal complaints at this time. Objective Data Objective Data Vital Signs: Vital Signs Temp Pulse Resp BP Pulse Ox O2 Del Method 97.5 F L 100 18 139/76 H 96 Room Air 07/25/24 11:56 07/25/24 11:56 07/25/24 11:56 07/25/24 11:56 07/18/24 13:44 07/25/24 11:56 Oxygen Delivery Method Room Air Weight: 124.738 kg Body Mass Index (BMI) 37.3 Lab / Micro Data Micro: Microbiology 07/18/24 14:04 Ulcer, Decubitus - Left Foot Gram Stain - Final 07/18/24 14:04 Ulcer, Decubitus - Left Foot Wound Culture - Final Enterobacter cloacae complex Corynebacterium striatum 07/18/24 14:04 Ulcer, Decubitus - Left Foot Anaerobic Culture - Final Anaerobic cocci Physical Exam Narrative Vascular: DP and PT pulses are faintly palpable. CFT is brisk. Nonpitting edema appreciated to bilateral lower extremity. Skin temperature gradient warm to warm from proximal ankles to distal digit bilateral. Evidence of hemosiderin deposits bilateral. No erythema. No ecchymosis. Neurological: Light touch intact. Protective station is diminished. Dermatological: Full-thickness ulceration to the left medial heel measuring 2.8 x 4.3 x 0.1 cm. Wound base is fibrogranular in nature. Excisional debridement using the 5 mm dermal currette down to including subcutaneous tissue to the left medial heel without incident. Predebridement measurement was 2.7 x 4.1 x 0.1 cm. Postdebridement measurement is 2.8 x 4.3 x 0.1 cm. Musculoskeletal: Muscle strength is 5 out of 5 in all quadrants bilateral. No pain on palpation to full-thickness wound on the left leg or right anterior leg. No pain with calf pressure. Debridement Note Debridement Note Debridement Free Text: Excisional debridement using the 5 mm dermal currette down to including subcutaneous tissue to the left medial heel without incident. Predebridement measurement was 2.7 x 4.1 x 0.1 cm. Postdebridement measurement is 2.8 x 4.3 x 0.1 cm. Post-Debridement Measurements and Additional Note: Post-Debridement Measurements/Treatment - Nurse 1 - General Ulcer Assessment Start: 07/11/24 13:31 Freq: Status: Active Protocol: JORGE Activity Type Activity Date Activity User E-sign Co-sign Detail Recorded Client Recorded Date Recorded By Document 07/11/24 13:31 KW [id number] 07/11/24 13:39 KW Document 07/18/24 13:44 MT [id number] 07/18/24 13:52 MT Document 07/25/24 11:56 [id number] 07/25/24 12:02 07/11/24 07/18/24 07/25/24 13:31 13:44 11:56 - Today's Visit Information Type of service Follow-up Visit Follow-up Visit Follow-up Visit (Physician/PRESCHOOL ASSISTANT DIRECTOR (Physician/PRESCHOOL ASSISTANT DIRECTOR (Physician/PRESCHOOL ASSISTANT DIRECTOR ) ) ) Arrival Mode Wheelchair Wheelchair Wheelchair Transfer Assistance None Accompanied by Patient Identification Verified (Name & Yes Yes Yes ) Safety Precautions Fall Prevention Height and Weight Body Mass Index (BMI) 37.3 37.3 37.3 BMI Classification Obese Obese Obese Vital Signs Temperature (97.8 F-99.1 F) 97.4 F L 98 F 97.5 F L Temperature Source Temporal Temporal Temporal Pulse Rate (60-100) 70 73 100 Pulse Location Monitor Monitor Monitor Respiratory Rate (12-18) 18 18 18 Respiratory rate source Observation Observation Observation Pulse Oximetry 96 Oxygen Delivery Method Room Air Room Air Room Air Blood Pressure (90/60-120/80) 135/59 H 152/84 H 139/76 H Blood Pressure Mean (mm Hg) 84 106 97 Source Monitor Monitor Monitor Position Semi-Fowlers Sitting Sitting Blood Pressure Location Left Arm Right Arm Right Arm History Since Last Visit- (Skip if this is Patient's initial visit) Have you changed medications since your No No last visit? Any new allergies or adverse reactions No No Had a fall/change in ADL's that may No No increase risk of falls Signs or symptoms of abuse and/or No No neglect since last visit Have you been in the hospital since your No No last visit? Has dressing in place as prescribed Yes Yes Yes Has compression in place as prescribed Yes Yes Yes Has offloadiing in place as prescribed N/A Yes N/A Experienced any changes in pain level or No Yes No management Left Footwear Regular Shoe Regular Shoe Diabetic Shoe Right Footwear Regular Shoe Regular Shoe Diabetic Shoe Pain Scale: 0-10 Numeric Is Patient Pain Free? Yes Yes Yes WC - Nurse 1 - General Ulcer Measurement Start: 07/11/24 13:31 Freq: Status: Active Protocol: Activity Type Activity Date Activity User E-sign Co-sign Detail Recorded Client Recorded Date Recorded By Document 07/11/24 13:31 KW [id number] 07/11/24 13:39 KW Document 07/18/24 13:44 ME [id number] 07/18/24 13:52 MT Document 07/25/24 11:56 [id number] 07/25/24 12:02 07/11/24 07/18/24 07/25/24 13:31 13:44 11:56 Wound Center Nurse 1 #4- L MED HEEL -Current Size (cm) - Length 4.5 3.0 -Current Size (cm) - Width 6 4.0 -Current Size (cm) - Depth 0.1 0.1 -Total Square Cm 27.0 12.00 -Date of Last Picture (Recall this 07/11/24 field) -Photo Taken No -Epithelialization Small 1-33% -Tunneling No -Undermining/Tunneling No -Circular Undermining No -Exudate Amt Medium Medium Medium -Exudate Type Serosanguineous Purulent Yellow/Green -Wound Margin Distinct, Flat & Intact Distinct, Outline Outline Attached Attached -Granulation Amt Small (1-33%) Large (67-100%) Medium (34-66%) -Granulation Quality [place] Pale,[place] -Slough/Fibrin Yes -Necrosis Amt Large (67-100%) Small (1-33%) Medium (34-66%) -Necrotic Tissue Type Adherent Slough Adherent Slough Adherent Slough -Texture (Hannah-wound Skin Appearance) Assessed Assessed Assessed -Moisture (Hannah-wound Skin Appearance) Assessed, Assessed Assessed, Maceration Maceration -Color (Hannah-wound Skin Appearance) Assessed Assessed Assessed -Temperature (Hannah-wound Skin No Abnormality No Abnormality No Abnormality Appearance) (Pt Warm) (Pt Warm) (Pt Warm) -Tenderness on Palpation (Hannah-wound No No Skin Appearance) -Ulcer Cleansing Soap and Water Soap and Water -Foul Odor after Cleansing No No No -Anesthetic Used 5% Lidocaine 5% Lidocaine Gel Gel Lower Limb Edema Present No Left Calf (cm) 47.2 Left Ankle (cm) 37.5 32 Left Foot (cm) 23.5 WC - Nurse 2 - General Ulcer CM Notes Start: 07/11/24 13:31 Freq: Status: Active Protocol: Activity Type Activity Date Activity User E-sign Co-sign Detail Recorded Client Recorded Date Recorded By Document 07/11/24 13:54 [id number] 07/11/24 13:59 Document 07/18/24 14:07 [id number] 07/18/24 14:08 Document 07/25/24 12:18 [id number] 07/25/24 12:20 07/11/24 07/18/24 07/25/24 13:54 14:07 12:18 Wound Center Nurse 2 #4- L MED HEEL -Time 13:54 14:07 12:20 -Correct Patient Yes Yes Yes -Correct Side, Site, Position Yes Yes Yes -Correct Procedure Yes Yes Yes -Procedure Performed Yes Yes Yes -Type of Procedure Debridement Debridement Debridement -Clinical Debridement Subcutaneous Subcutaneous Subcutaneous -Tissue Removed Subcutaneous Subcutaneous Subcutaneous -Post Debridement (cm) - Length 3.0 2.8 2.8 -Post Debridement (cm) - Width 4.8 4.5 4.3 -Post Debridement (cm) - Depth 0.2 0.2 0.1 -Total Square (Post) (cm) 12.60 12.04 -Area of Debridement (cm) - Length 3.0 2.8 2.8 -Area of Debridement (cm) - Width 4.8 4.5 4.3 -Total Square (Area) (cm) .60 12.04 -Tunneling No No No -Undermining/Tunneling No No No -Circular Undermining No No No -Wound/Ulcer Outcome Not Healed Not Healed Not Healed -Ulcer Cleansing Rinsed/ Rinsed/ Rinsed/ Irrigated with Irrigated with Irrigated with Saline Saline Saline -Foul Odor after Cleansing No No No -Bioengineered Tissue Yes No No -Type of Bioengineered Tissue Epifix Mesh -Expiration Date 12/05/28 -Product Lot Number [id number] -Percent Used 100 -Lot number of Saline Used [id number] -Bleeding Controlled with Pressure Pressure Pressure -Treatment Response Procedure Procedure Procedure Tolerated Well Tolerated Well Tolerated Well -Offloading No No No -Debridement - Subq, 1st 20sq cm No Yes Yes -Apply Skin Sub - 1st 25 sq cm - Feet 1 -Epifix Mesh Application 1-4 (per sq 11 cm) Pain Scale: 0-10 Numeric Is Patient Pain Free? Yes Yes Yes - Nurse 3 - General Ulcer D/C NN Start: 07/11/24 13:31 Freq: Status: Active Protocol: Activity Type Activity Date Activity User E-sign Co-sign Detail Recorded Client Recorded Date Recorded By Document 07/11/24 14:22 KW [id number] 07/11/24 14:22 KW Document 07/18/24 14:16 ML [id number] 07/18/24 14:17 ML Document 07/25/24 12:25 KW [id number] 07/25/24 12:26 KW 07/11/24 07/18/24 07/25/24 14:22 14:16 12:25 Wound Care Center Nurse 3 #4- L MED HEEL -Ulcer Cleansing Rinsed/ Rinsed/ Irrigated with Irrigated with Saline Saline -Other Dressing dakins gauze -Primary Dressing Covered/Secured with Dry Gauze & Dry Gauze & Dry Gauze & Roll Gauze, Roll Gauze, Roll Gauze, Secured with Secured with Secured with Tape Tape Tape -Other Covering kd LLE -Compression Wrap Kd Wrap Kd Wrap -Other 2- 4in and 6 in 2- 4 in and 6 in Pain Scale: 0-10 Numeric Is Patient Pain Free? Yes Yes Yes - Visit Discharge Discharge Condition Stable Stable Ambulatory Status Wheelchair Wheelchair Transportation Private Auto Private Auto Medication Reconcilliation completed & No No provided to patient/care provider Clinical Summary of Care Provided Yes Yes Assessment/Plan Assessment/Plan (1) Non-pressure chronic ulcer of left heel and midfoot with fat layer exposed: CODE(S): L97.422 - Non-pressure chronic ulcer of left heel and midfoot with fat layer exposed PLAN: Patient was examined and evaluated. All findings were discussed with the patient. All questions were answered to the patient's satisfaction. Excisional debridement using the 5 mm dermal currette down to including subcutaneous tissue to the left medial heel without incident. Predebridement measurement was 2.7 x 4.1 x 0.1 cm. Postdebridement measurement is 2.8 x 4.3 x 0.1 cm. Area was wiped clean and patted dry. Area was dressed with Dakin soaked gauze followed by dry sterile dressing and compression wrap to left lower extremity. Patient will perform daily dressing changes as discussed. Review of the patient's microbiology cultures they are showing evidence of intermediate resistant antibiotics to some of the organisms that have grown. Patient will be referred to infectious disease for consultation and recommendation next week at 1 PM. Follow-up at the wound care center with Dr. Spann in 1 week.
[2024-08-01 12:43] VITALS: BP 157/70; PULSE 72; RESP 18; TEMP 36.3; BMI 37.3
== END 2024-08-04 23:59 | disposition home or self-care (01) ==
LOC: WC 12:15
PROVIDERS: PCP Internal Medicine; Referring Provider Podiatrist Foot & Ankle Surgery; Visit Provider Podiatrist Foot & Ankle Surgery
DX: E11.621 Type 2 diabetes mellitus with foot ulcer (principal); L97.422 Non-pressure chronic ulcer of left heel and midfoot with fat layer exposed; Z79.4 Long term (current) use of insulin; Z79.01 Long term (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 of anticoagulants; Z79.899 Other long term (current) drug therapy
CPT/HCPCS: 11042; 15275; 87070; 87075; 87077; 87186; 87205; 99214; Q4186; G0463

== ENCOUNTER 2024-08-29 10:45 | Outpatient (RCR) | payer MEDICARE, OTHER, SELFPAY ==
[2024-08-05 00:16] VITALS: BP 157/70; PULSE 72; RESP 18; TEMP 36.3; O2SAT 96; BMI 37.3
[2024-08-15 11:45] VITALS: BP 143/81; PULSE 67; RESP 18; TEMP 36.6; BMI 37.3
--- NOTE | 2024-08-15 13:28 | PN.PCM_ITS ---
History of Present Illness Date of Service: 08/15/24 Chief Complaint: Right foot ulcer History of Wound: Chronic ulceration to the left heel and anterior right leg. Progress of Wound: Improving full-thickness wound to the medial aspect of the left heel Subjective Subjective Mr. Renae is a 78-year-old male presents to wound care center today for follow- up evaluation of full-thickness wound to the medial aspect the left heel. He has been dressing changes as discussed. They admit to great improvement and healthy granular growth to the wound. His blood sugar has been well-controlled. He denies any trauma. Denies constitutional symptoms. No other pedal complaints at this time. Objective Data Objective Data Vital Signs: Vital Signs Temp Pulse Resp BP Pulse Ox 97.8 F 67 18 143/81 H 96 08/15/24 11:45 08/15/24 11:45 08/15/24 11:45 08/15/24 11:45 08/05/24 00:16 Weight: 124.738 kg Body Mass Index (BMI) 37.3 Lab / Micro Data Micro: Microbiology 07/18/24 14:04 Ulcer, Decubitus - Left Foot Gram Stain - Final 07/18/24 14:04 Ulcer, Decubitus - Left Foot Wound Culture - Final Enterobacter cloacae complex Corynebacterium striatum 07/18/24 14:04 Ulcer, Decubitus - Left Foot Anaerobic Culture - Final Anaerobic cocci Physical Exam Narrative Vascular: DP and PT pulses are faintly palpable. CFT is brisk. Nonpitting edema appreciated to bilateral lower extremity. Skin temperature gradient warm to warm from proximal ankles to distal digit bilateral. Evidence of hemosiderin deposits bilateral. No erythema. No ecchymosis. Neurological: Light touch intact. Protective station is diminished. Dermatological: Evidence of healthy granular tissue with overgrowth to the full- thickness wound. Wound measures 2.4 x 3.2 x 0.1 cm. No drainage or sign of infection. Excisional debridement using a combination of #15 blade with pickups as well as electrocautery of the healthy overgrowth of granular tissue to the medial aspect of the left lower extremity done without incident. Predebridement measurement was 2.2 x 3.0 x 0.1 cm. Postdebridement measurement was 2.4 x 3.2 x 0.1 cm. Musculoskeletal: Muscle strength is 5 out of 5 in all quadrants bilateral. No pain on palpation to full-thickness wound on the left leg or right anterior leg. No pain with calf pressure. Debridement Note Debridement Note Debridement Free Text: Excisional debridement using a combination of #15 blade with pickups as well as electrocautery of the healthy overgrowth of granular tissue to the medial aspect of the left lower extremity done without incident. Predebridement measurement was 2.2 x 3.0 x 0.1 cm. Postdebridement measurement was 2.4 x 3.2 x 0.1 cm. Post-Debridement Measurements and Additional Note: Post-Debridement Measurements/Treatment WC - Nurse 1 - General Ulcer Assessment Start: 08/15/24 11:45 Freq: Status: Active Protocol: JORGE Activity Type Activity Date Activity User E-sign Co-sign Detail Recorded Client Recorded Date Recorded By Document 08/15/24 11:45 DL [id number] 08/15/24 11:48 DL 08/15/24 11:45 WC - Today's Visit Information Type of service Follow-up Visit (Physician/GLOBAL REGULATORY AFFAIRS MANAGER ) Arrival Mode Wheelchair Transfer Assistance Manual Transfer Assist (Other) x1 Patient Identification Verified (Name & Yes ) Patient Requires Transmission-Based No Precautions Height and Weight Body Mass Index (BMI) 37.3 BMI Classification Obese Vital Signs Temperature (97.8 F-99.1 F) 97.8 F Temperature Source Temporal Pulse Rate (60-100) 67 Pulse Location Monitor Respiratory Rate (12-18) 18 Respiratory rate source Observation Blood Pressure (90/60-120/80) 143/81 H Blood Pressure Mean (mm Hg) 101 Source Monitor History Since Last Visit- (Skip if this is Patient's initial visit) Have you changed medications since your No last visit? Any new allergies or adverse reactions No Had a fall/change in ADL's that may No increase risk of falls Signs or symptoms of abuse and/or No neglect since last visit Have you been in the hospital since your No last visit? Has dressing in place as prescribed No Has compression in place as prescribed Yes Has offloadiing in place as prescribed Yes Experienced any changes in pain level or No management Pain Scale: 0-10 Numeric Is Patient Pain Free? Yes [place] - Nurse 1 - General Ulcer Measurement Start: 08/15/24 11:45 Freq: Status: Active Protocol: Activity Type Activity Date Activity User E-sign Co-sign Detail Recorded Client Recorded Date Recorded By Document 08/15/24 11:45 DL [id number] 08/15/24 11:48 DL 08/15/24 11:45 Wound Center Nurse 1 #4- L MED HEEL -Current Size (cm) - Length 2.5 -Current Size (cm) - Width 4.1 -Current Size (cm) - Depth 0.1 -Total Square Cm 10.25 -Photo Taken Yes -Exudate Amt Medium -Exudate Type Serosanguineous -Wound Margin Distinct, Outline Attached -Granulation Amt Large (67-100%) -Granulation Quality Hyper- granulation, [place] -Necrosis Amt Small (1-33%) -Necrotic Tissue Type Adherent Slough -Structure Exposed N/A -Texture (Hannah-wound Skin Appearance) Scarring -Moisture (Hannah-wound Skin Appearance) Maceration -Color (Hannah-wound Skin Appearance) No Abnormality -Temperature (Hannah-wound Skin No Abnormality Appearance) (Pt Warm) -Tenderness on Palpation (Hannah-wound No Skin Appearance) -Ulcer Cleansing Soap and Water -Foul Odor after Cleansing No -Anesthetic Used 5% Lidocaine Gel Left Calf (cm) 47 Left Ankle (cm) 31.2 WC - Nurse 2 - General Ulcer CM Notes Start: 08/15/24 11:45 Freq: Status: Active Protocol: Activity Type Activity Date Activity User E-sign Co-sign Detail Recorded Client Recorded Date Recorded By Document 08/15/24 12:11 JF [id number] 08/15/24 12:21 08/15/24 12:11 Wound Center Nurse 2 #4- L MED HEEL -Time 12:12 -Correct Patient Yes -Correct Side, Site, Position Yes -Correct Procedure Yes -Procedure Performed Yes -Type of Procedure Debridement -Clinical Debridement Subcutaneous -Tissue Removed Subcutaneous -Post Debridement (cm) - Length 2.4 -Post Debridement (cm) - Width 3.2 -Post Debridement (cm) - Depth 0.1 -Total Square (Post) (cm) 7.68 -Area of Debridement (cm) - Length 2.4 -Area of Debridement (cm) - Width 3.2 -Total Square (Area) (cm) 7.68 -Tunneling No -Undermining/Tunneling No -Circular Undermining No -Wound/Ulcer Outcome Not Healed -Ulcer Cleansing Rinsed/ Irrigated with Saline -Foul Odor after Cleansing No -Bioengineered Tissue No -Bleeding Controlled with Pressure, Surgifoam 3 8 x 5 (lg), Chemical Cauterization ( $) -Surgifoam (3 03/14 x 5) Large 2 -Treatment Response Procedure Tolerated Well -Offloading No -Debridement - Subq, 1st 20sq cm Yes Pain Scale: 0-10 Numeric Is Patient Pain Free? Yes - Nurse 3 - General Ulcer D/C NN Start: 08/15/24 11:45 Freq: Status: Active Protocol: Activity Type Activity Date Activity User E-sign Co-sign Detail Recorded Client Recorded Date Recorded By Document 08/15/24 12:25 KW [id number] 08/15/24 12:27 KW 08/15/24 12:25 Wound Care Center Nurse 3 #4- L MED HEEL -Primary Dressing Applied Surgifoam 3 03/14 x 5 (lg) -Primary Dressing Covered/Secured with Dry Gauze & Roll Gauze, Secured with Tape -Surgifoam (3 8 x 5) Large 1 -Wound Comment(s) surgifome today to control bleeding, resume dakins gauze with abd kerlex tomorrow BLE -Compression Wrap Kd Wrap -Other 4- 2 4 in 2 6 in Pain Scale: 0-10 Numeric Is Patient Pain Free? Yes - Visit Discharge Discharge Condition Stable Ambulatory Status Wheelchair Transportation Private Auto Medication Reconcilliation completed & No provided to patient/care provider Clinical Summary of Care Provided Yes Assessment/Plan Assessment/Plan (1) Non-pressure chronic ulcer of left heel and midfoot with fat layer exposed: CODE(S): L97.422 - Non-pressure chronic ulcer of left heel and midfoot with fat layer exposed PLAN: Patient was examined and evaluated. All findings were discussed with the patient. All questions were answered to the patient's satisfaction. Excisional debridement using a combination of #15 blade with pickups as well as electrocautery of the healthy overgrowth of granular tissue to the medial aspect of the left lower extremity done without incident. Predebridement measurement was 2.2 x 3.0 x 0.1 cm. Postdebridement measurement was 2.4 x 3.2 x 0.1 cm. The left lower extremities were cleaned and patted dry. Surgical foam followed by dry sterile dressing and compression wrap was donned to the left lower extremity. They will start Dakin's solution with multilayer compression bandage tomorrow. I did educate the patient and his that if there is more bleeding to the area he is to report to the emergency room for admission and will take the patient down to the operating room to perform additional surgery and graft application to the left heel as needed. Follow-up at the wound care center with Dr. Spann in 1 week.
[2024-08-22 11:47] VITALS: BP 137/71; PULSE 59; RESP 18; TEMP 36.1; BMI 37.3
--- NOTE | 2024-08-22 13:28 | PCM.WC.PN ---
History of Present Illness Date of Service: 08/22/24 Chief Complaint: Right foot ulcer History of Wound: Chronic ulceration to the left heel and anterior right leg. Progress of Wound: Improving full-thickness wound to the medial aspect of the left heel Subjective Subjective Mr. Renae is a 78-year-old male presents to wound care center today for follow-up evaluation of full-thickness wound to the medial aspect the left heel. He has been dressing changes as discussed. They admit to great improvement and healthy granular growth to the wound. His blood sugar has been well-controlled. He denies any trauma. Denies constitutional symptoms. No other pedal complaints at this time. Objective Data Objective Data Vital Signs: Vital Signs Temp Pulse Resp BP Pulse Ox O2 Del Method 97 F L 59 L 18 137/71 H 96 Room Air 08/22/24 11:47 08/22/24 11:47 08/22/24 11:47 08/22/24 11:47 08/05/24 00:16 08/22/24 11:47 Oxygen Delivery Method Room Air Weight: 124.738 kg Body Mass Index (BMI) 37.3 Lab / Micro Data Micro: Microbiology 07/18/24 14:04 Ulcer, Decubitus - Left Foot Gram Stain - Final 07/18/24 14:04 Ulcer, Decubitus - Left Foot Wound Culture - Final Enterobacter cloacae complex Corynebacterium striatum 07/18/24 14:04 Ulcer, Decubitus - Left Foot Anaerobic Culture - Final Anaerobic cocci Physical Exam Narrative Vascular: DP and PT pulses are faintly palpable. CFT is brisk. Nonpitting edema appreciated to bilateral lower extremity. Skin temperature gradient warm to warm from proximal ankles to distal digit bilateral. Evidence of hemosiderin deposits bilateral. No erythema. No ecchymosis. Neurological: Light touch intact. Protective station is diminished. Dermatological: Evidence of healthy granular tissue with overgrowth to the full-thickness wound. Wound measures 2.5 x 3.6 x 0.1 cm no drainage or sign of infection. Excisional debridement down to including subcutaneous tissue of the full-thickness wound to the left medial heel with a number 7 mm dermal curette down without incident. Predebridement measurement was 2.3 x 3.3 x 0.1 cm. Postdebridement measurement is 2.5 x 3.6 x 0.1 cm. Musculoskeletal: Muscle strength is 5 out of 5 in all quadrants bilateral. No pain on palpation to full-thickness wound on the left leg or right anterior leg. No pain with calf pressure. Debridement Note Debridement Note Debridement Free Text: Excisional debridement down to including subcutaneous tissue of the full-thickness wound to the left medial heel with a number 7 mm dermal curette down without incident. Predebridement measurement was 2.3 x 3.3 x 0.1 cm. Postdebridement measurement is 2.5 x 3.6 x 0.1 cm. Post-Debridement Measurements and Additional Note: Post-Debridement Measurements/Treatment - Nurse 1 - General Ulcer Assessment Start: 08/15/24 11:45 Freq: Status: Active Protocol: LISETHI AM ATDarrell Activity Type Activity Date Activity User E-sign Co-sign Detail Recorded Client Recorded Date Recorded By Document 08/15/24 11:45 DL [id number] 08/15/24 11:48 DL Document 08/22/24 11:47 MT [id number] 08/22/24 11:50 MT 08/15/24 08/22/24 11:45 11:47 - Today's Visit Information Type of service Follow-up Visit Follow-up Visit (Physician/INSTRUCTOR MILITARY SCIENCE (Physician/INSTRUCTOR [employer]ITARY SCIENCE ) ) Arrival Mode Wheelchair Ambulatory Transfer Assistance Manual Transfer Assist (Other) x1 Accompanied by SELF Patient Identification Verified (Name & Yes Yes ) Patient Requires Transmission-Based No Precautions Safety Precautions Fall Prevention Height and Weight Body Mass Index (BMI) 37.3 37.3 BMI Classification Obese Obese Vital Signs Temperature (97.8 F-99.1 F) 97.8 F 97 F L Temperature Source Temporal Temporal Pulse Rate (60-100) 67 59 L Pulse Location Monitor Monitor Respiratory Rate (12-18) 18 18 Respiratory rate source Observation Observation Oxygen Delivery Method Room Air Blood Pressure (90/60-120/80) 143/81 H 137/71 H Blood Pressure Mean (mm Hg) 101 93 Source Monitor Monitor Position Sitting Blood Pressure Location Right Arm History Since Last Visit- (Skip if this is Patient's initial visit) Have you changed medications since your No last visit? Any new allergies or adverse reactions No Had a fall/change in ADL's that may No increase risk of falls Signs or symptoms of abuse and/or No neglect since last visit Have you been in the hospital since your No last visit? Has dressing in place as prescribed No Yes Has compression in place as prescribed Yes Yes Has offloadiing in place as prescribed Yes Yes Experienced any changes in pain level or No Yes management Left Footwear Regular Shoe Right Footwear Regular Shoe Pain Scale: 0-10 Numeric Is Patient Pain Free? Yes Yes WC - Nurse 1 - General Ulcer Measurement Start: 08/15/24 11:45 Freq: Status: Active Protocol: Activity Type Activity Date Activity User E-sign Co-sign Detail Recorded Client Recorded Date Recorded By Document 08/15/24 11:45 DL [id number] 08/15/24 11:48 DL Document 08/22/24 11:47 MT [id number] 08/22/24 11:50 MT 08/15/24 08/22/24 11:45 11:47 Wound Center Nurse 1 #4- L MED HEEL -Current Size (cm) - Length 2.5 2.5 -Current Size (cm) - Width 4.1 3.3 -Current Size (cm) - Depth 0.1 0.1 -Total Square Cm 10.25 8.25 -Photo Taken Yes No -Tunneling No -Undermining/Tunneling No -Circular Undermining No -Exudate Amt Medium Medium -Exudate Type Serosanguineous Purulent -Wound Margin Distinct, Flat & Intact Outline Attached -Granulation Amt Large (67-100%) Large (67-100%) -Granulation Quality Hyper- Pale,[place] granulation, [place] -Necrosis Amt Small (1-33%) Small (1-33%) -Necrotic Tissue Type Adherent Slough Adherent Slough -Structure Exposed N/A -Texture (Hannah-wound Skin Appearance) Scarring Assessed -Moisture (Hannah-wound Skin Appearance) Maceration Assessed, Maceration -Color (Hannah-wound Skin Appearance) No Abnormality Assessed, Erythema -Temperature (Hannah-wound Skin No Abnormality No Abnormality Appearance) (Pt Warm) (Pt Warm) -Tenderness on Palpation (Hannah-wound No No Skin Appearance) -Ulcer Cleansing Soap and Water Soap and Water -Foul Odor after Cleansing No No -Anesthetic Used 5% Lidocaine 5% Lidocaine Gel Gel Left Calf (cm) 47 48 Left Ankle (cm) 31.2 33 WC - Nurse 2 - General Ulcer CM Notes Start: 08/15/24 11:45 Freq: Status: Active Protocol: Activity Type Activity Date Activity User E-sign Co-sign Detail Recorded Client Recorded Date Recorded By Document 08/15/24 12:11 JF [id number] 08/15/24 12:21 Document 08/22/24 12:11 [id number] 08/22/24 12:15 08/15/24 08/22/24 12:11 12:11 Wound Center Nurse 2 #4- L MED HEEL -Time 12:12 12:11 -Correct Patient Yes Yes -Correct Side, Site, Position Yes Yes -Correct Procedure Yes Yes -Procedure Performed Yes Yes -Type of Procedure Debridement Debridement -Clinical Debridement Subcutaneous Subcutaneous -Tissue Removed Subcutaneous Subcutaneous -Post Debridement (cm) - Length 2.4 2.5 -Post Debridement (cm) - Width 3.2 3.6 -Post Debridement (cm) - Depth 0.1 0.1 -Total Square (Post) (cm) 7.68 9.00 -Area of Debridement (cm) - Length 2.4 2.5 -Area of Debridement (cm) - Width 3.2 3.6 -Total Square (Area) (cm) 7.68 9.00 -Tunneling No No -Undermining/Tunneling No No -Circular Undermining No No -Wound/Ulcer Outcome Not Healed Not Healed -Ulcer Cleansing Rinsed/ Rinsed/ Irrigated with Irrigated with Saline Saline -Foul Odor after Cleansing No No -Bioengineered Tissue No No -Bleeding Controlled with Pressure, Pressure, Surgifoam 3 03/14 Surgifoam ? x 2 x 5 (lg), 3/8 (sm), Chemical Surgifoam 3 03/14 Cauterization ( x 5 (lg) $) -Surgifoam (3/4 x 2 05/12) Small 1 -Surgifoam (3 8 x 5) Large 2 1 -Treatment Response Procedure Procedure Tolerated Well Tolerated Well -Offloading No No -Debridement - Subq, 1st 20sq cm Yes Yes Pain Scale: 0-10 Numeric Is Patient Pain Free? Yes Yes - Nurse 3 - General Ulcer D/C NN Start: 08/15/24 11:45 Freq: Status: Active Protocol: Activity Type Activity Date Activity User E-sign Co-sign Detail Recorded Client Recorded Date Recorded By Document 08/15/24 12:25 KW [id number] 08/15/24 12:27 Document 08/22/24 12:22 KW [id number] 08/22/24 12:24 KW 08/15/24 08/22/24 12:25 12:22 Wound Care Center Nurse 3 #4- L MED HEEL -Primary Dressing Applied Surgifoam 3 03/14 Promogran x 5 (lg) Catherine Matter -Primary Dressing Covered/Secured with Dry Gauze & Dry Gauze & Roll Gauze, Roll Gauze, Secured with Secured with Tape Tape -Promogran Catherine Matter 1 -Surgifoam (3 03/14 x 5) Large 1 -Wound Comment(s) surgifome today to control bleeding, resume dakins gauze with abd kerlex tomorrow BLE -Compression Wrap Kd Wrap Kd Wrap -Other 4- 2 4 in 2 6 KD 4 IN TO in FOOT 6 IN TO THE LEG Pain Scale: 0-10 Numeric Is Patient Pain Free? Yes Yes WC - Visit Discharge Discharge Condition Stable Stable Ambulatory Status Wheelchair Wheelchair Transportation Private Auto Private Auto Medication Reconcilliation completed & No No provided to patient/care provider Clinical Summary of Care Provided Yes Yes Assessment/Plan Assessment/Plan (1) Non-pressure chronic ulcer of left heel and midfoot with fat layer exposed: CODE(S): L97.422 - Non-pressure chronic ulcer of left heel and midfoot with fat layer exposed PLAN: Patient was examined and evaluated. All findings were discussed with the patient. All questions were answered to the patient's satisfaction. Excisional debridement down to including subcutaneous tissue of the full-thickness wound to the left medial heel with a number 7 mm dermal curette down without incident. Predebridement measurement was 2.3 x 3.3 x 0.1 cm. Postdebridement measurement is 2.5 x 3.6 x 0.1 cm. The left lower extremities were cleaned and patted dry. Moist Catherine was applied to the full-thickness wound followed by dry sterile dressing and compression wrap. Patient will perform every other day dressing changes to the full-thickness wound to the left foot. Continue strict blood sugar control. Follow-up at the wound care center with Dr. Spann in 1 week.
[2024-08-29 11:04] VITALS: BP 141/73; PULSE 77; RESP 18; TEMP 36.7; BMI 37.3
--- NOTE | 2024-08-29 11:56 | PCM.WC.PN ---
History of Present Illness Date of Service: 08/29/24 Chief Complaint: Right foot ulcer History of Wound: Chronic ulceration to the left heel and anterior right leg. Progress of Wound: Improving full-thickness wound to the medial aspect of the left heel Subjective Subjective Patient is a 78-year-old diabetic male presenting the wound care center follow-up evaluation of left medial heel full-thickness wound. Patient has been compliant with dressing changes and has been getting them every other day by home health care. He continues to offload and elevate his bilateral lower extremity. He is compliant with compression. His blood sugars well-controlled. He denies trauma. Denies constitutional symptoms. No other pedal complaints at this time. Objective Data Objective Data Vital Signs: Vital Signs Temp Pulse Resp BP Pulse Ox O2 Del Method 98.1 F 77 18 141/73 H 96 Room Air 08/29/24 11:04 08/29/24 11:04 08/29/24 11:04 08/29/24 11:04 08/05/24 00:16 08/22/24 11:47 Oxygen Delivery Method Room Air Weight: 124.738 kg Body Mass Index (BMI) 37.3 Physical Exam Narrative Vascular: DP and PT pulses are faintly palpable. CFT is brisk. Nonpitting edema appreciated to bilateral lower extremity. Skin temperature gradient warm to warm from proximal ankles to distal digit bilateral. Evidence of hemosiderin deposits bilateral. No erythema. No ecchymosis. Neurological: Light touch intact. Protective station is diminished. Dermatological: Full-thickness wound to the left medial heel measuring 2.7 x 3.5 x 0.1 cm. Wound base is granular with no sign of infection. Excisional debridement down to including subcutaneous tissue of the full-thickness wound to the left medial heel with a number 5 mm dermal curette down without incident. Predebridement measurement was 2.6 x 3.3 x 0.1 cm. Postdebridement measurement is 2.7 x 3.5 x 0.1 cm. Musculoskeletal: Muscle strength is 5 out of 5 in all quadrants bilateral. No pain on palpation to full-thickness wound on the left leg or right anterior leg. No pain with calf pressure. Debridement Note Debridement Note Debridement Free Text: Excisional debridement down to including subcutaneous tissue of the full-thickness wound to the left medial heel with a number 5 mm dermal curette down without incident. Predebridement measurement was 2.6 x 3.3 x 0.1 cm. Postdebridement measurement is 2.7 x 3.5 x 0.1 cm. Post-Debridement Measurements and Additional Note: Post-Debridement Measurements/Treatment WC - Nurse 1 - General Ulcer Assessment Start: 08/15/24 11:45 Freq: Status: Active Protocol: WC.LOWEXT Activity Type Activity Date Activity User E-sign Co-sign Detail Recorded Client Recorded Date Recorded By Document 08/15/24 11:45 DL [id number] 08/15/24 11:48 DL Document 08/22/24 11:47 MT [id number] 08/22/24 11:50 MT Document 08/29/24 11:04 RB [id number] 08/29/24 11:07 RB 08/15/24 08/22/24 08/29/24 11:45 11:47 11:04 WC - Today's Visit Information Type of service Follow-up Visit Follow-up Visit Follow-up Visit (Physician/CUT AND COVER LINE WORKER (Physician/CUT AND COVER LINE WORKER (Physician/CUT AND COVER LINE WORKER ) ) ) Arrival Mode Wheelchair Ambulatory Wheelchair Transfer Assistance Manual Manual Transfer Assist (Other) x1 Accompanied by SELF Patient Identification Verified (Name & Yes Yes Yes ) Patient Requires Transmission-Based No No Precautions Safety Precautions Fall Prevention Height and Weight Body Mass Index (BMI) 37.3 37.3 37.3 BMI Classification Obese Obese Obese Vital Signs Temperature (97.8 F-99.1 F) 97.8 F 97 F L 98.1 F Temperature Source Temporal Temporal Temporal Pulse Rate (60-100) 67 59 L 77 Pulse Location Monitor Monitor Monitor Respiratory Rate (12-18) 18 18 18 Respiratory rate source Observation Observation Observation Oxygen Delivery Method Room Air Blood Pressure (90/60-120/80) 143/81 H 137/71 H 141/73 H Blood Pressure Mean (mm Hg) 101 93 95 Source Monitor Monitor Position Sitting Blood Pressure Location Right Arm History Since Last Visit- (Skip if this is Patient's initial visit) Have you changed medications since your No No last visit? Any new allergies or adverse reactions No No Had a fall/change in ADL's that may No No increase risk of falls Signs or symptoms of abuse and/or No No neglect since last visit Have you been in the hospital since your No No last visit? Has dressing in place as prescribed No Yes Yes Has compression in place as prescribed Yes Yes Yes Has offloadiing in place as prescribed Yes Yes No Experienced any changes in pain level or No Yes No management Left Footwear Regular Shoe Right Footwear Regular Shoe Pain Scale: 0-10 Numeric Is Patient Pain Free? Yes Yes No Back/legs -Description Aching -Intensity 3 -Duration (hours) Acute -Pain Behavior Irritability -Pain Aggravating Factors Exercise/ Activity -Alleviating Factors/Interventions Medication -Effectiveness of Alleviating Factor/ Moderately Intervention effective WC - Nurse 1 - General Ulcer Measurement Start: 08/15/24 11:45 Freq: Status: Active Protocol: Activity Type Activity Date Activity User E-sign Co-sign Detail Recorded Client Recorded Date Recorded By Document 08/15/24 11:45 DL [id number] 08/15/24 11:48 DL Document 08/22/24 11:47 MT [id number] 08/22/24 11:50 MT Document 08/29/24 11:04 RB [id number] 08/29/24 11:07 RB 08/15/24 08/22/24 08/29/24 11:45 11:47 11:04 Wound Center Nurse 1 #4- L MED HEEL -Combined with other wound No -Current Size (cm) - Length 2.5 2.5 3 -Current Size (cm) - Width 4.1 3.3 4 -Current Size (cm) - Depth 0.1 0.1 0.1 -Total Square Cm 10.25 8.25 12 -Photo Taken Yes No -Tunneling No No -Undermining/Tunneling No No -Circular Undermining No No -Exudate Amt Medium Medium Large -Exudate Type Serosanguineous Purulent Serosanguineous -Wound Margin Distinct, Flat & Intact Distinct, Outline Outline Attached Attached -Granulation Amt Large (67-100%) Large (67-100%) Medium (34-66%) -Granulation Quality Hyper- Pale,[place] granulation, [place] -Slough/Fibrin Yes -Necrosis Amt Small (1-33%) Small (1-33%) Medium (34-66%) -Necrotic Tissue Type Adherent Slough Adherent Slough Adherent Slough -Structure Exposed N/A N/A -Texture (Hannah-wound Skin Appearance) Scarring Assessed Assessed -Moisture (Hannah-wound Skin Appearance) Maceration Assessed, Maceration Maceration -Color (Hannah-wound Skin Appearance) No Abnormality Assessed, Assessed Erythema -Temperature (Hannah-wound Skin No Abnormality No Abnormality No Abnormality Appearance) (Pt Warm) (Pt Warm) (Pt Warm) -Tenderness on Palpation (Hannah-wound No No No Skin Appearance) -Ulcer Cleansing Soap and Water Soap and Water Rinsed/ Irrigated with Saline -Foul Odor after Cleansing No No No -Anesthetic Used 5% Lidocaine 5% Lidocaine 5% Lidocaine Gel Gel Gel Lower Limb Edema Present Yes Left Calf (cm) 47 48 48.7 Left Ankle (cm) 31.2 33 33 WC - Nurse 2 - General Ulcer CM Notes Start: 08/15/24 11:45 Freq: Status: Active Protocol: Activity Type Activity Date Activity User E-sign Co-sign Detail Recorded Client Recorded Date Recorded By Document 08/15/24 12:11 [id number] 08/15/24 12:21 JF Document 08/22/24 12:11 JF [id number] 08/22/24 12:15 JF Document 08/29/24 11:16 DS [id number] 08/29/24 11:17 DS 08/15/24 08/22/24 08/29/24 12:11 12:11 11:16 Wound Center Nurse 2 #4- L MED HEEL -Time 12:12 12:11 11:16 -Correct Patient Yes Yes Yes -Correct Side, Site, Position Yes Yes Yes -Correct Procedure Yes Yes Yes -Procedure Performed Yes Yes Yes -Type of Procedure Debridement Debridement Debridement -Clinical Debridement Subcutaneous Subcutaneous Subcutaneous -Tissue Removed Subcutaneous Subcutaneous Subcutaneous -Post Debridement (cm) - Length 2.4 2.5 2.7 -Post Debridement (cm) - Width 3.2 3.6 3.5 -Post Debridement (cm) - Depth 0.1 0.1 0.1 -Total Square (Post) (cm) 7.68 9.00 9.45 -Area of Debridement (cm) - Length 2.4 2.5 2.7 -Area of Debridement (cm) - Width 3.2 3.6 3.5 -Total Square (Area) (cm) 7.68 9.00 9.45 -Tunneling No No No -Undermining/Tunneling No No No -Circular Undermining No No No -Wound/Ulcer Outcome Not Healed Not Healed Not Healed -Ulcer Cleansing Rinsed/ Rinsed/ Rinsed/ Irrigated with Irrigated with Irrigated with Saline Saline Saline -Foul Odor after Cleansing No No No -Bioengineered Tissue No No No -Bleeding Controlled with Pressure, Pressure, Pressure, Surgifoam 3 03/14 Surgifoam ? x 2 Surgifoam 3 03/14 x 5 (lg), 3 (sm), x 5 (lg) Chemical Surgifoam 3 03/14 Cauterization ( x 5 (lg) $) -Surgifoam (3/ x 2 05/12) Small 1 -Surgifoam (3 03/14 x 5) Large 2 1 1 -Treatment Response Procedure Procedure Tolerated Well Tolerated Well -Offloading No No -Debridement - Subq, 1st 20sq cm Yes Yes Yes Pain Scale: 0-10 Numeric Is Patient Pain Free? Yes Yes Yes WC - Nurse 3 - General Ulcer D/C NN Start: 08/15/24 11:45 Freq: Status: Active Protocol: Activity Type Activity Date Activity User E-sign Co-sign Detail Recorded Client Recorded Date Recorded By Document 08/15/24 12:25 KW [id number] 08/15/24 12:27 KW Document 08/22/24 12:22 KW [id number] 08/22/24 12:24 KW Document 08/29/24 11:32 RB [id number] 08/29/24 11:34 RB 08/15/24 08/22/24 08/29/24 12:25 12:22 11:32 Wound Care Center Nurse 3 #4- L MED HEEL -Ulcer Cleansing Rinsed/ Irrigated with Saline -Primary Dressing Applied Surgifoam 03/14 Promogran Promogran x 5 (lg) Catherine Matter Catherine Matter -Primary Dressing Covered/Secured with Dry Gauze & Dry Gauze & Dry Gauze,Dry Roll Gauze, Roll Gauze, Gauze & Roll Secured with Secured with Gauze,Secured Tape Tape with Tape -Promogran Catherine Matter 1 1 -Surgifoam (3 03/14 x 5) Large 1 -Wound Comment(s) surgifome today to control bleeding, resume dakins gauze with abd kerlex tomorrow LLE -Compression Wrap Kd Wrap BLE -Compression Wrap Kd Wrap Kd Wrap -Other 4- 2 4 in 2 6 KD 4 IN TO in FOOT 6 IN TO THE LEG Treatment Response Procedure Tolerated Well Pain Scale: 0-10 Numeric Is Patient Pain Free? Yes Yes Yes WC - Visit Discharge Discharge Condition Stable Stable Stable Ambulatory Status Wheelchair Wheelchair Wheelchair Transportation Private Auto Private Auto Private Auto Accompanied by Medication Reconcilliation completed & No No No provided to patient/care provider Clinical Summary of Care Provided Yes Yes Yes Assessment/Plan Assessment/Plan (1) Non-pressure chronic ulcer of left heel and midfoot with fat layer exposed: CODE(S): L97.422 - Non-pressure chronic ulcer of left heel and midfoot with fat layer exposed PLAN: Patient was examined and evaluated. All findings were discussed with the patient. All questions were answered to the patient's satisfaction. Excisional debridement down to including subcutaneous tissue of the full-thickness wound to the left medial heel with a number 5 mm dermal curette down without incident. Predebridement measurement was 2.6 x 3.3 x 0.1 cm. Postdebridement measurement is 2.7 x 3.5 x 0.1 cm. The left heel was wiped clean and patted dry. Moist Catherine was applied followed by dry sterile dressing and compression wrap. Patient will continue every other day dressing changes with home health care. Educated the patient and his about strict blood sugar control. Will continue to offload and weight-bear as tolerated. Follow-up at the wound care center with Dr. Spann in 1 week.
== END 2024-09-03 23:59 | disposition home or self-care (01) ==
LOC: WC 10:45
PROVIDERS: PCP Internal Medicine; Referring Provider Podiatrist Foot & Ankle Surgery; Visit Provider Podiatrist Foot & Ankle Surgery
DX: E11.621 Type 2 diabetes mellitus with foot ulcer (principal); L97.422 Non-pressure chronic ulcer of left heel and midfoot with fat layer exposed; Z79.4 Long term (current) use of insulin; R60.0 Localized edema; Z79.01 Long term (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 of anticoagulants; Z79.899 Other long term (current) drug therapy
CPT/HCPCS: 11042; 17250

== ENCOUNTER 2024-10-03 13:30 | Outpatient (RCR) | payer MEDICARE, OTHER, SELFPAY ==
[2024-09-05 13:06] VITALS: BP 154/85; PULSE 102; RESP 18; TEMP 36.3
--- NOTE | 2024-09-05 13:31 | PN.PCM_ITS ---
History of Present Illness Date of Service: 09/05/24 Chief Complaint: Right foot ulcer History of Wound: Chronic ulceration to the left heel and anterior right leg. Progress of Wound: Improving full-thickness wound to the medial aspect of the left heel Subjective Subjective Patient is a 78-year-old diabetic male presented wound care center today follow- up evaluation of left medial heel full-thickness ulceration. Patient has been compliant with dressing changes. His blood sugars well-controlled. Denies strikethrough or pain. Denies trauma. Denies constitutional symptoms. No other pedal complaints at this time. Objective Data Objective Data Vital Signs: Vital Signs Temp Pulse Resp BP 97.4 F L 102 H 18 154/85 H 09/05/24 13:06 09/05/24 13:06 09/05/24 13:06 09/05/24 13:06 Physical Exam Narrative Vascular: DP and PT pulses are faintly palpable. CFT is brisk. Nonpitting edema appreciated to bilateral lower extremity. Skin temperature gradient warm to warm from proximal ankles to distal digit bilateral. Evidence of hemosiderin deposits bilateral. No erythema. No ecchymosis. Neurological: Light touch intact. Protective station is diminished. Dermatological: Full-thickness wound to the left medial heel measuring 2.5 x 3.2 x 0.1 cm. Wound base is granular with no sign of infection. Excisional debridement down to including subcutaneous tissue of the full- thickness wound to the left medial heel with a number 5 mm dermal curette down without incident. Predebridement measurement was 2.3 x 3.0 x 0.1 cm. Postdebridement measurement is 2.5 x 3.2 x 0.1 cm. Musculoskeletal: Muscle strength is 5 out of 5 in all quadrants bilateral. No pain on palpation to full-thickness wound on the left leg or right anterior leg. No pain with calf pressure. Debridement Note Debridement Note Debridement Free Text: Excisional debridement down to including subcutaneous tissue of the full-thickness wound to the left medial heel with a number 5 mm dermal curette down without incident. Predebridement measurement was 2.3 x 3.0 x 0.1 cm. Postdebridement measurement is 2.5 x 3.2 x 0.1 cm. Post-Debridement Measurements and Additional Note: Post-Debridement Measurements/Treatment WC - Nurse 1 - General Ulcer Assessment Start: 09/05/24 13:06 Freq: Status: Active Protocol: [email or web address] Activity Type Activity Date Activity User E-sign Co-sign Detail Recorded Client Recorded Date Recorded By Document 09/05/24 13:06 BIBIANA [id number] 09/05/24 13:18 DL 09/05/24 13:06 - Today's Visit Information Type of service Follow-up Visit (Physician/BILINGUAL STUDENT TUTOR ) Arrival Mode Wheelchair Transfer Assistance Manual Transfer Assist (Other) x2 Patient Requires Transmission-Based No Precautions Vital Signs Temperature (97.8 F-99.1 F) 97.4 F L Temperature Source Temporal Pulse Rate (60-100) 102 H Pulse Location Monitor Respiratory Rate (12-18) 18 Respiratory rate source Observation Blood Pressure (90/60-120/80) 154/85 H Blood Pressure Mean (mm Hg) 108 Source Monitor History Since Last Visit- (Skip if this is Patient's initial visit) Have you changed medications since your No last visit? Any new allergies or adverse reactions No Had a fall/change in ADL's that may No increase risk of falls Signs or symptoms of abuse and/or No neglect since last visit Have you been in the hospital since your No last visit? Has dressing in place as prescribed Yes Has compression in place as prescribed Yes Has offloadiing in place as prescribed Yes Experienced any changes in pain level or No management Pain Scale: 0-10 Numeric Is Patient Pain Free? Yes - Nurse 1 - General Ulcer Measurement Start: 09/05/24 13:06 Freq: Status: Active Protocol: Activity Type Activity Date Activity User E-sign Co-sign Detail Recorded Client Recorded Date Recorded By Document 09/05/24 13:06 BIBIANA [id number] 09/05/24 13:18 DL 09/05/24 13:06 Wound Center Nurse 1 #4- L MED HEEL -Current Size (cm) - Length 2.6 -Current Size (cm) - Width 3.6 -Current Size (cm) - Depth 0.1 -Total Square Cm 9.36 -Exudate Amt Medium -Exudate Type Serosanguineous -Wound Margin Thickened -Granulation Amt None Present (0 %) -Necrosis Amt Large (67-100%) -Structure Exposed N/A -Texture (Hannah-wound Skin Appearance) Localized Edema ,Scarring -Moisture (Hannah-wound Skin Appearance) Maceration -Color (Hannah-wound Skin Appearance) No Abnormality -Temperature (Hannah-wound Skin No Abnormality Appearance) (Pt Warm) -Ulcer Cleansing Soap and Water -Foul Odor after Cleansing No -Anesthetic Used 5% Lidocaine Gel Left Calf (cm) 46 Left Ankle (cm) 30 WC - Nurse 2 - General Ulcer CM Notes Start: 09/05/24 13:06 Freq: Status: Active Protocol: Activity Type Activity Date Activity User E-sign Co-sign Detail Recorded Client Recorded Date Recorded By Document 09/05/24 13:25 AMPARO [id number] 09/05/24 13:27 AMPARO 09/05/24 13:25 Wound Center Nurse 2 #4- L MED HEEL -Time 13:25 -Correct Patient Yes -Correct Side, Site, Position Yes -Correct Procedure Yes -Procedure Performed Yes -Type of Procedure Debridement -Clinical Debridement Subcutaneous -Tissue Removed Subcutaneous -Post Debridement (cm) - Length 2.5 -Post Debridement (cm) - Width 3.2 -Post Debridement (cm) - Depth 0.1 -Total Square (Post) (cm) 8.00 -Area of Debridement (cm) - Length 2.5 -Area of Debridement (cm) - Width 3.2 -Total Square (Area) (cm) 8.00 -Tunneling No -Undermining/Tunneling No -Circular Undermining No -Wound/Ulcer Outcome Not Healed -Ulcer Cleansing Rinsed/ Irrigated with Saline -Foul Odor after Cleansing No -Bioengineered Tissue No -Bleeding Controlled with Pressure -Treatment Response Procedure Tolerated Well -Offloading No -Debridement - Subq, 1st 20sq cm Yes Pain Scale: 0-10 Numeric Is Patient Pain Free? Yes Assessment/Plan Assessment/Plan (1) Non-pressure chronic ulcer of left heel and midfoot with fat layer exposed: CODE(S): L97.422 - Non-pressure chronic ulcer of left heel and midfoot with fat layer exposed PLAN: Patient was examined and evaluated. All findings were discussed with the patient. All questions were answered to the patient's satisfaction. Excisional debridement down to including subcutaneous tissue of the full- thickness wound to the left medial heel with a number 5 mm dermal curette down without incident. Predebridement measurement was 2.3 x 3.0 x 0.1 cm. Postdebridement measurement is 2.5 x 3.2 x 0.1 cm. AMB pad was applied to the full-thickness wound to the medial aspect of the left heel followed by dry sterile dressing compression wrap. Patient will do every other day dressing changes. Educated the patient and his about strict blood sugar control. Will continue to offload and weight-bear as tolerated. Follow-up at the wound care center with Dr. Enriquez in [address] Spann in 2 week.
[2024-09-12 11:15] VITALS: BP 147/70; PULSE 71; RESP 18; TEMP 36.4
--- NOTE | 2024-09-12 14:01 | WC ---
PHOTO 09/12/24 LEFT HEEL
--- NOTE | 2024-09-16 18:14 | HP.PCM_ITS ---
History of Present Illness Date of Service: 09/12/24 Chief Complaint: Left heel ulceration History of Wound: This is a 78-year-old male with an ulceration on the medial aspect of his left heel. The patient has been under the care of Dr. Olaf Spann, for whom a courtesy visit is provided in his absence. The patient suffers from multiple pre-existing medical problems, including diabetes mellitus, type II. The patient's other pre-existing medical conditions are listed herein. The patient is not a smoker. 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 He is not active. He claims to sit throughout the day quite a bit. He notes chronic swelling in his lower extremities. He sleeps on a flat surface at night. He possesses CircAid Velcro compression garments, but has not been using these on a regular basis. He also has pneumatic mechanical compression pumps, which have been used sparingly. The patient is on chronic systemic anticoagulation. 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 Lymphedema, not elsewhere classified Anemia Cancer Current use of insulin Back pain due to injury Injury of head and neck History of stress test Rheumatic fever Wears hearing aid in both ears Blindness of both eyes Hearing loss, left Hearing loss, right Hypothyroidism Diabetes Chronic pain Former smoker Atrial fibrillation Hypertension DVT (deep venous thrombosis) History of diabetes mellitus History of atrial fibrillation Paroxysmal atrial fibrillation Renal insufficiency Retinitis pigmentosa Hypothyroidism Hyperlipidemia Insomnia GERD (gastroesophageal reflux disease) Legal blindness Osteoarthritis Essential hypertension Sepsis Chronic back pain UTI (urinary tract infection) Acute renal failure Type II diabetes mellitus Home Medications ?Medication ?Instructions ?Recorded ?Last Taken ?Type gabapentin 800 mg tablet 800 mg PO 4XD 08/21/1310/25 04:00 History omeprazole 40 mg capsule,delayed 40 mg PO DAILY 10/25/14 04:00 History release atorvastatin 80 mg tablet 80 mg PO QHS 07/25/14 Unknow n History finasteride 5 mg tablet 1 tab PO DAILY 01/23/20 Unkn own History apixaban 5 mg tablet (Eliquis) 5 mg PO BID 07/02/20 Un known History amlodipine 5 mg tablet 5 mg PO DAILY 03/30/23 Unkno wn History ondansetron 4 mg disintegrating 4 mg PO Q12H PRN nause a and 03/30/23 Unknown History tablet vomiting enalapril maleate 10 mg tablet 10 mg PO BID 08/29/23 U nknown History fhomfeba-vru-usstt acid 0.4 1 tab PO DAILY 08/29/23 Un known History mg-lycopene 300 mcg-lutein 250 mcg tablet (Centrum Silver) cetirizine 10 mg tablet (24Hour 10 mg PO BID PRN aller gy symptoms 10/20/23 Unknown History Allergy) vitamin E 800 unit capsule 800 unit PO DAILY 10/20/23 Unknown History furosemide 40 mg tablet (Lasix) 40 mg PO DAILY #30 tab s 10/26/23 Unknown Rx insulin glargine-yfgn 100 unit/mL 30 unit (0.3 mL) sub cut BID #0 mL 10/26/23 Unknown Rx (3 mL) subcutaneous pen insulin lispro 100 unit/mL See Protocol subcut TIDAC # 0 mL 10/26/23 Unknown Rx subcutaneous pen (Humalog KwikPen (U-100) Insulin) piperacillin-tazobactam 3.375 gram 3.375 g IV Q8H 26 d ays 10/26/23 Unknown Rx intravenous solution vancomycin 1.25 gram intravenous 1.25 g IV Q24H 26 day s 10/26/23 Unknown Rx solution cholecalciferol (vitamin D3) 125 125 mcg PO QDAY 09/11 Unknown History mcg (5,000 unit) capsule furosemide 40 mg tablet (Lasix) 40 mg PO QDAY PRN 0710/29 Unknown History hydrocodone 10 mg-acetaminophen 1 tab PO 4X/DAY Unknown History 325 mg tablet polyethylene glycol 3350 17 17 g PO QDAY PRN 09/11/24 Unknown History gram/dose oral powder (Miralax) Allergy/AdvReac Type Severity Reaction Status Date / Time Sulfa (Sulfonamide Allergy Shortness Verified 09/11/24 13:10 Antibiotics) of breath Gadolinium-MRI Contrast AdvReac Vomiting Verified 09/11/24 13:10 Medium (MRI) Family History Sister Cancer ovarian Mother CVA (cerebral vascular accident) Diabetes Father Cancer malignant melanona, bladder Brother Myocardial infarction Brother Myocardial infarction Brother Lung cancer Surgical History S/P foot surgery, left History of cholecystectomy (~10/2022) History of left heart catheterization (04/16/20) History of thumb surgery History of vein stripping History of carpal tunnel surgery of left wrist History of discectomy History of spinal fusion History of surgery on wrist History of elbow surgery History of arthroscopy of knee History of cataract extraction History of transurethral resection of prostate Social History household members: spouse and other details: nephew Smoking Status: Former smoker Tobacco: How many years used: 10 how long ago did patient quit smokin years ago alcohol intake: never substance use type: does not use caffeine: Yes Type: carbonated beverages Number of servings: 5 what type of physical activity do you participate in: none seatbelt use: always do you feel safe at home: Yes Physical Exam Const alert, oriented x3, no apparent distress and well nourished Constitutional Narrative: The patient is legally blind. He is obese. General Appearance: cooperative and well developed Orientation / Consciousness: awake, oriented to person, oriented to place and oriented to time HEENT normocephalic and head/scalp atraumatic Head and Scalp: normal to inspection, normocephalic and atraumatic External Ear: external ears normal Resp normal respiratory effort, normal air movement, no retractions and no use of accessory muscles Effort and Inspection: able to speak in complete sentences Skin Wound Narrative: An ulceration is noted on the patient's left medial heel. The ulceration extends through all layers of the dermis, and into the subcutaneous tissues. A significant amount of callus is noted at the periphery of the ulceration. The base of the ulceration is generally pink and healthy in appearance, with a small amount of bioburden and nonviable tissue. Dimensions are documented elsewhere. There is no sign of infection or cellulitis. Neuro oriented x3 Sensorium / Orientation: awake, alert, oriented to person, oriented to place and oriented to time Speech: speech normal Psych Appearance: grossly normal and appropriate Attitude: calm Activity / Motor Behavior: appropriate eye contact Speech: normal speech Mood & Affect: euthymic mood Thought Process: normal thought process Thought Content: normal thought content Attention / Concentration: attention grossly intact Debridement Note Debridement Note Wound debrided: Left medial heel ulceration Laterality: Left Wound Grade/Stage: [place] Grade I/II Type of Debridement: Excisional debridement Anesthesia Used: 5% Lidocaine Gel Depth: Down to and including healthy tissue and in the subcutaneous layer Percentage of wound debrided: 100 Instrument Used: 5mm curette Tissue Removed: Bioburden, devitalized tissue, and peripheral callus Severity: Fat Layer Exposed Amount of bleeding with debridement: Mild Bleeding Controlled with: Compression and gauze Patient tolerated procedure: Patient tolerated procedure well Debridement Free Text: Effort was made to remove as much of the peripheral callus as possible in order to bevel the wound margins and to enhance healing by secondary intention. 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 (Physician/PARACHUTE CUSHION INSTALLER ) ) Arrival Mode Wheelchair Wheelchair Transfer Assistance Manual Manual Transfer Assist (Other) x2 Patient Identification Verified (Name & No ) Patient Requires Transmission-Based No No Precautions Vital Signs Temperature (97.8 F-99.1 F) 97.4 F L 97.5 F L Temperature Source Temporal Temporal Pulse Rate (60-100) 102 H 71 Pulse Location Monitor Monitor Respiratory Rate (12-18) 18 18 Respiratory rate source Observation Observation Oxygen Delivery Method Room Air Blood Pressure (90/60-120/80) 154/85 H 147/70 H Blood Pressure Mean 108 95 Source Monitor Monitor Position Sitting Blood Pressure Location Right Arm History Since Last Visit- (Skip if this is Patient's initial visit) Have you changed medications since your No No last visit? Any new allergies or adverse reactions No No Had a fall/change in ADL's that may No No increase risk of falls Signs or symptoms of abuse and/or No No neglect since last visit Have you been in the hospital since your No No last visit? Has dressing in place as prescribed Yes Yes Has compression in place as prescribed Yes Yes Has offloadiing in place as prescribed Yes N/A Experienced any changes in pain level or No No management Left Footwear Diabetic Shoe Right Footwear Diabetic Shoe Pain Scale: 0-10 Numeric Is Patient Pain Free? Yes No WC - Nurse 1 - General Ulcer Measurement Start: 09/05/24 13:06 Freq: Status: Active Protocol: Activity Type Activity Date Activity User E-sign Co-sign Detail Recorded Client Recorded Date Recorded By Document 09/05/24 13:06 DL [id number] 09/05/24 13:18 DL Document 09/12/24 11:15 GM [id number] 09/12/24 11:18 GM 09/05/24 09/12/24 13:06 11:15 Wound Center Nurse 1 #4- L MED HEEL -Current Size (cm) - Length 2.6 2.0 -Current Size (cm) - Width 3.6 3.0 -Current Size (cm) - Depth 0.1 0.1 -Total Square Cm 9.36 6.00 -Photo Taken No -Epithelialization Small 1-33% -Tunneling No -Undermining/Tunneling No -Circular Undermining No -Exudate Amt Medium Medium -Exudate Type Serosanguineous Serosanguineous -Wound Margin Thickened Distinct, Outline Attached -Granulation Amt None Present (0 Large (67-100%) %) -Granulation Quality Red -Slough/Fibrin No -Necrosis Amt Large (67-100%) -Structure Exposed N/A -Texture (Hannah-wound Skin Appearance) Localized Edema Assessed ,Scarring -Moisture (Hannah-wound Skin Appearance) Maceration Assessed -Color (Hannah-wound Skin Appearance) No Abnormality Assessed, Cyanosis -Temperature (Hannah-wound Skin No Abnormality No Abnormality Appearance) (Pt Warm) (Pt Warm) -Tenderness on Palpation (Hannah-wound No Skin Appearance) -Ulcer Cleansing Soap and Water Soap and Water -Foul Odor after Cleansing No No -Anesthetic Used 5% Lidocaine 5% Lidocaine Gel Gel Lower Limb Edema Present No Left Calf (cm) 46 48.5 Left Ankle (cm) 30 Point of Measurement (cm from the medial 34.0 instep) WC - Nurse 2 - General Ulcer CM Notes Start: 09/05/24 13:06 Freq: Status: Active Protocol: Activity Type Activity Date Activity User E-sign Co-sign Detail Recorded Client Recorded Date Recorded By Document 09/05/24 13:25 JF [id number] 09/05/24 13:27 JF Document 09/12/24 11:30 GM [id number] 09/12/24 11:38 09/05/24 09/12/24 13:25 11:30 Wound Center Nurse 2 #4- L MED HEEL -Time 13:25 11:30 -Correct Patient Yes Yes -Correct Side, Site, Position Yes Yes -Correct Procedure Yes Yes -Procedure Performed Yes Yes -Type of Procedure Debridement Debridement -Clinical Debridement Subcutaneous Subcutaneous -Tissue Removed Subcutaneous Subcutaneous -Post Debridement (cm) - Length 2.5 2.0 -Post Debridement (cm) - Width 3.2 3.0 -Post Debridement (cm) - Depth 0.1 0.1 -Total Square (Post) (cm) 8.00 6.00 -Area of Debridement (cm) - Length 2.5 2.0 -Area of Debridement (cm) - Width 3.2 3.0 -Total Square (Area) (cm) 8.00 6.00 -Tunneling No No -Undermining/Tunneling No No -Circular Undermining No No -Wound/Ulcer Outcome Not Healed Not Healed -Ulcer Cleansing Rinsed/ Not Cleansed Irrigated with Saline -Foul Odor after Cleansing No No -Bioengineered Tissue No No -Bleeding Controlled with Pressure Pressure -Treatment Response Procedure Procedure Tolerated Well Tolerated Well -Offloading No No -Assistive Device(s) Wheelchair -Debridement - Subq, 1st 20sq cm Yes Yes Pain Scale: 0-10 Numeric Is Patient Pain Free? Yes Yes - Nurse 3 - General Ulcer D/C NN Start: 09/05/24 13:06 Freq: Status: Active Protocol: Activity Type Activity Date Activity User E-sign Co-sign Detail Recorded Client Recorded Date Recorded By Document 09/05/24 13:36 KW [id number] 09/05/24 13:38 KW Document 09/12/24 12:04 ML [id number] 09/12/24 12:05 ML 09/05/24 09/12/24 13:36 12:04 Wound Care Center Nurse 3 #4- L MED HEEL -Ulcer Cleansing Rinsed/ Rinsed/ Irrigated with Irrigated with Saline Saline -Primary Dressing Applied AMD Dressing Promogran 4x4 Catherine Matter -Other Dressing Kd -Primary Dressing Covered/Secured with Dry Gauze & Dry Gauze & Roll Gauze, Roll Gauze, Secured with Secured with Tape Tape -AMD Dressing 4x4 1 -Promogran Catherine Matter 1 BLE -Compression Wrap Kd Wrap -Other both 4 in and 6 in bilat. Pain Scale: 0-10 Numeric Is Patient Pain Free? Yes Yes WC - Visit Discharge Discharge Condition Stable Ambulatory Status Wheelchair Transportation Private Auto Accompanied by Medication Reconcilliation completed & No provided to patient/care provider Clinical Summary of Care Provided Yes Charges/Coding Multi Select Codes Visit Charges Office Visit/Consults: 51557 OV L4 New 45 min Integumentary Integumentary CPT Codes: 90701 Rachel subq tissue 20 sq cm/< Assessment/Plan Assessment/Plan (1) Non-pressure chronic ulcer of left heel and midfoot with fat layer exposed: CODE(S): L97.422 - Non-pressure chronic ulcer of left heel and midfoot with fat layer exposed (2) Type 2 diabetes mellitus with diabetic polyneuropathy: CODE(S): E11.42 - Type 2 diabetes mellitus with diabetic polyneuropathy 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 use Qualified Code(s): E11.42 - Type 2 diabetes mellitus with diabetic polyneuropathy; Z79.4 - group home (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 of insulin (3) Peripheral vascular disease: CODE(S): I73.9 - Peripheral vascular disease, unspecified (4) DAILEY (dyspnea on exertion): CODE(S): R06.09 - Other forms of dyspnea (5) Bilateral edema of lower extremity: CODE(S): R60.0 - Localized edema (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 - Kaposi's sarcoma, unspecified (7) Venous insufficiency: CODE(S): I87.2 - Venous insufficiency (chronic) (peripheral) (8) Essential hypertension: CODE(S): I10 - Essential (primary) hypertension (9) Hyperlipidemia: CODE(S): E78.5 - Hyperlipidemia, unspecified QUALIFIERS: Hyperlipidemia type: unspecified Qualified Code(s): E78.5 - Hyperlipidemia, unspecified (10) Chronic anticoagulation: CODE(S): Z79.01 - 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 (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 of anticoagulants (11) Current use of insulin: CODE(S): Z79.4 - group home (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 of insulin (12) Wears hearing aid in both ears: CODE(S): Z97.4 - Presence of external hearing-aid (13) Blindness of both eyes: CODE(S): H54.3 - Unqualified visual loss, both eyes (14) Hypothyroidism: CODE(S): E03.9 - Hypothyroidism, unspecified (15) Atrial fibrillation: CODE(S): I48.91 - Unspecified atrial fibrillation (16) Hypothyroidism: CODE(S): E03.9 - Hypothyroidism, unspecified (17) GERD (gastroesophageal reflux disease): CODE(S): K21.9 - Gastro-esophageal reflux disease without esophagitis (18) Legal blindness: CODE(S): H54.8 - Legal blindness, as defined in [place] (19) Osteoarthritis: CODE(S): M19.90 - Unspecified osteoarthritis, unspecified site (20) Type II diabetes mellitus: CODE(S): E11.9 - Type 2 diabetes mellitus without complications (21) S/P foot surgery, left: CODE(S): Z98.890 - Other specified postprocedural states (22) History of cholecystectomy: CODE(S): Z90.49 - Acquired absence of other specified parts of digestive tract (23) History of left heart catheterization: CODE(S): Z98.890 - Other specified postprocedural states (24) History of thumb surgery: CODE(S): Z98.890 - Other specified postprocedural states (25) History of transurethral resection of prostate: CODE(S): Z98.890 - Other specified postprocedural states; Z90.79 - A cquired absence of other genital organ(s) (26) History of cataract extraction: CODE(S): Z98.49 - Cataract extraction status, unspecified eye (27) History of arthroscopy of knee: CODE(S): Z98.890 - Other specified postprocedural states (28) History of elbow surgery: CODE(S): Z98.890 - Other specified postprocedural states (29) History of surgery on wrist: CODE(S): Z98.890 - Other specified postprocedural states (30) History of spinal fusion: CODE(S): Z98.1 - Arthrodesis status (31) History of discectomy: CODE(S): Z98.890 - Other specified postprocedural states (32) History of carpal tunnel surgery of left wrist: CODE(S): Z98.890 - Other specified postprocedural states (33) History of vein stripping: CODE(S): Z98.890 - Other specified postprocedural states PLAN: Plan This is a 78-year-old blind, diabetic male with an ulceration of the left medial heel. He is a patient of Dr. Olaf Spann, [facility], for whom the patient is seen today as a courtesy. A routine excisional debridement has been performed today. We are to implement the use of Catherine topically, as Danyel AMD Foam with PHMB is not currently available. The patient is to apply the the moistened Catherine on a daily basis. Patient is to return in 1 week for evaluation by Dr. Spann. Offloading measures have been encouraged, as there is concern that the patient's ankle braces may have contributed to his ulceration. The patient has been encouraged to optimize his nutritional intake. He has also been instructed to optimize his glycemic control. Because of the chronic swelling in the patient's lower extremities, and his limitations in activity, the patient has been instructed to elevate his lower extremities as much as possible. Elevation is to be to heart level, or higher, during both daytime and nighttime hours. He has been encouraged to sleep on a flat mattress at night. Prolonged idle sitting has been discouraged. The patient has been encouraged to use his CircAid Velcro compression garments daily. He has also been encouraged to utilize his mechanical pneumatic compression pumps several times daily. Total time: 48 minutes
[2024-10-03 14:02] VITALS: BP 119/78; PULSE 69; RESP 16; TEMP 37
--- NOTE | 2024-10-04 14:22 | PN.PCM_ITS ---
History of Present Illness Date of Service: 10/03/24 Chief Complaint: Left heel ulceration History of Wound: This is a 78-year-old male with an ulceration on the medial aspect of his left heel. The patient has been under the care of Dr. Olaf Spann, for whom a courtesy visit is provided in his absence. The patient suffers from multiple pre-existing medical problems, including diabetes mellitus, type II. The patient's other pre-existing medical conditions are listed herein. The patient is not a smoker. 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 He is not active. He claims to sit throughout the day quite a bit. He notes chronic swelling in his lower extremities. He sleeps on a flat surface at night. He possesses CircAid Velcro compression garments, but has not been using these on a regular basis. He also has pneumatic mechanical compression pumps, which have been used sparingly. The patient is on chronic systemic anticoagulation. Progress of Wound: Improving full-thickness wound to the medial aspect of the left heel Subjective Subjective Patient is a 78-year-old diabetic male presented wound care center today follow- up evaluation of left medial heel full-thickness ulceration. Patient has been compliant with dressing changes. His blood sugars well-controlled. Denies strikethrough or pain. Denies trauma. Denies constitutional symptoms. No other pedal complaints at this time. Objective Data Objective Data Vital Signs: Vital Signs Temp Pulse Resp BP O2 Del Method 98.6 F 69 16 119/78 Room Air 10/03/24 14:02 10/03/24 14:02 10/03/24 14:02 10/03/24 14:02 10/03/24 14:02 Oxygen Delivery Method Room Air Physical Exam Narrative Vascular: DP and PT pulses are faintly palpable. CFT is brisk. Nonpitting edema appreciated to bilateral lower extremity. Skin temperature gradient warm to warm from proximal ankles to distal digit bilateral. Evidence of hemosiderin deposits bilateral. No erythema. No ecchymosis. Neurological: Light touch intact. Protective station is diminished. Dermatological: Full-thickness wound to the left medial heel measuring 1.8 x 2.2 x 0.1 cm. Wound base is granular with no sign of infection. Excisional debridement down to including subcutaneous tissue of the full- thickness wound to the left medial heel with a number 5 mm dermal curette down without incident. Predebridement measurement was 1.6 x 2.0 x 0.1 cm. Postdebridement measurement is 1.8 x 2.2 x 0.1 cm. Musculoskeletal: Muscle strength is 5 out of 5 in all quadrants bilateral. No pain on palpation to full-thickness wound on the left leg or right anterior leg. No pain with calf pressure. Debridement Note Debridement Note Debridement Free Text: Excisional debridement down to including subcutaneous tissue of the full-thickness wound to the left medial heel with a number 5 mm dermal curette down without incident. Predebridement measurement was 1.6 x 2.0 x 0.1 cm. Postdebridement measurement is 1.8 x 2.2 x 0.1 cm. Post-Debridement Measurements and Additional Note: Post-Debridement Measurements/Treatment - Nurse 1 - General Ulcer Assessment Start: 09/05/24 13:06 Freq: Status: Active Protocol: [email or web address] Activity Type Activity Date Activity User E-sign Co-sign Detail Recorded Client Recorded Date Recorded By Document 09/05/24 13:06 DL [id number] 09/05/24 13:18 DL Document 09/12/24 11:15 [id number] 09/12/24 11:18 Document 10/03/24 14:02 [id number] 10/03/24 14:04 09/05/24 09/12/24 10/03/24 13:06 11:15 14:02 - Today's Visit Information Type of service Follow-up Visit Follow-up Visit Follow-up Visit (Physician/POLITICAL ANALYST (Physician/POLITICAL ANALYST (Physician/POLITICAL ANALYST ) ) ) Arrival Mode Wheelchair Wheelchair Wheelchair Transfer Assistance Manual Manual None Transfer Assist (Other) x2 Patient Identification Verified (Name & No Yes ) Patient Requires Transmission-Based No No Precautions Vital Signs Temperature (97.8 F-99.1 F) 97.4 F L 97.5 F L 98.6 F Temperature Source Temporal Temporal Temporal Pulse Rate (60-100) 102 H 71 69 Pulse Location Monitor Monitor Monitor Respiratory Rate (12-18) 18 18 16 Respiratory rate source Observation Observation Observation Oxygen Delivery Method Room Air Room Air Blood Pressure (90/60-120/80) 154/85 H 147/70 H 119/78 Blood Pressure Mean (mm Hg) 108 95 91 Source Monitor Monitor Monitor Position Sitting Sitting Blood Pressure Location Right Arm Right Arm History Since Last Visit- (Skip if this is Patient's initial visit) Have you changed medications since your No No No last visit? Any new allergies or adverse reactions No No No Had a fall/change in ADL's that may No No No increase risk of falls Signs or symptoms of abuse and/or No No No neglect since last visit Have you been in the hospital since your No No No last visit? Has dressing in place as prescribed Yes Yes Yes Has compression in place as prescribed Yes Yes Yes Has offloadiing in place as prescribed Yes N/A N/A Experienced any changes in pain level or No No No management Left Footwear Diabetic Shoe Diabetic Shoe Right Footwear Diabetic Shoe Diabetic Shoe Pain Scale: 0-10 Numeric Is Patient Pain Free? Yes No Yes WC - Nurse 1 - General Ulcer Measurement Start: 09/05/24 13:06 Freq: Status: Active Protocol: Activity Type Activity Date Activity User E-sign Co-sign Detail Recorded Client Recorded Date Recorded By Document 09/05/24 13:06 DL [id number] 09/05/24 13:18 DL Document 09/12/24 11:15 GM [id number] 09/12/24 11:18 GM Document 10/03/24 14:02 [id number] 10/03/24 14:04 09/05/24 09/12/24 10/03/24 13:06 11:15 14:02 Wound Center Nurse 1 #4- L MED HEEL -Combined with other wound No -Current Size (cm) - Length 2.6 2.0 2.0 -Current Size (cm) - Width 3.6 3.0 2.5 -Current Size (cm) - Depth 0.1 0.1 0.1 -Total Square Cm 9.36 6.00 5.00 -Photo Taken No No -Epithelialization Small 1-33% None Present -Tunneling No No -Undermining/Tunneling No No -Circular Undermining No No -Exudate Amt Medium Medium Medium -Exudate Type Serosanguineous Serosanguineous Yellow/Green -Wound Margin Thickened Distinct, Distinct, Outline Outline Attached Attached -Granulation Amt None Present (0 Large (67-100%) Small (1-33%) %) -Granulation Quality Red Pale,Red -Slough/Fibrin No No -Necrosis Amt Large (67-100%) Small (1-33%) -Necrotic Tissue Type Adherent Slough -Structure Exposed N/A -Texture (Hannah-wound Skin Appearance) Localized Edema Assessed Assessed ,Scarring -Moisture (Hannah-wound Skin Appearance) Maceration Assessed Assessed -Color (Hannah-wound Skin Appearance) No Abnormality Assessed, Assessed Cyanosis -Temperature (Hannah-wound Skin No Abnormality No Abnormality No Abnormality Appearance) (Pt Warm) (Pt Warm) (Pt Warm) -Tenderness on Palpation (Hannah-wound No Skin Appearance) -Ulcer Cleansing Soap and Water Soap and Water Soap and Water -Foul Odor after Cleansing No No No -Anesthetic Used 5% Lidocaine 5% Lidocaine 5% Lidocaine Gel Gel Gel Lower Limb Edema Present No No Left Calf (cm) 46 48.5 49.5 Left Ankle (cm) 30 34.0 Point of Measurement (cm from the medial 34.0 instep) WC - Nurse 2 - General Ulcer CM Notes Start: 09/05/24 13:06 Freq: Status: Active Protocol: Activity Type Activity Date Activity User E-sign Co-sign Detail Recorded Client Recorded Date Recorded By Document 09/05/24 13:25 [id number] 09/05/24 13:27 Document 09/12/24 11:30 [id number] 09/12/24 11:38 Document 10/03/24 14:16 [id number] 10/03/24 14:18 09/05/24 09/12/24 10/03/24 13:25 11:30 14:16 Wound Center Nurse 2 #4- L MED HEEL -Time 13:25 11:30 14:16 -Correct Patient Yes Yes Yes -Correct Side, Site, Position Yes Yes Yes -Correct Procedure Yes Yes Yes -Procedure Performed Yes Yes Yes -Type of Procedure Debridement Debridement Debridement -Clinical Debridement Subcutaneous Subcutaneous Subcutaneous -Tissue Removed Subcutaneous Subcutaneous Subcutaneous -Post Debridement (cm) - Length 2.5 2.0 -Post Debridement (cm) - Width 3.2 3.0 -Post Debridement (cm) - Depth 0.1 0.1 -Total Square (Post) (cm) 8.00 6.00 -Area of Debridement (cm) - Length 2.5 2.0 -Area of Debridement (cm) - Width 3.2 3.0 -Total Square (Area) (cm) 8.00 6.00 -Tunneling No No No -Undermining/Tunneling No No No -Circular Undermining No No No -Wound/Ulcer Outcome Not Healed Not Healed Not Healed -Ulcer Cleansing Rinsed/ Not Cleansed Rinsed/ Irrigated with Irrigated with Saline Saline -Foul Odor after Cleansing No No No -Bioengineered Tissue No No No -Bleeding Controlled with Pressure Pressure Pressure, Surgifoam ? x 2 05/12 (sm) -Surgifoam (3/4 x 2 05/12) Small 1 -Treatment Response Procedure Procedure Procedure Tolerated Well Tolerated Well Tolerated Well -Offloading No No No -Assistive Device(s) Wheelchair -Debridement - Subq, 1st 20sq cm Yes Yes Yes Pain Scale: 0-10 Numeric Is Patient Pain Free? Yes Yes Yes - Nurse 3 - General Ulcer D/C NN Start: 09/05/24 13:06 Freq: Status: Active Protocol: Activity Type Activity Date Activity User E-sign Co-sign Detail Recorded Client Recorded Date Recorded By Document 09/05/24 13:36 KW [id number] 09/05/24 13:38 KW Document 09/12/24 12:04 ML [id number] 09/12/24 12:05 ML Document 10/03/24 14:24 BM [id number] 10/03/24 14:25 BM 09/05/24 09/12/24 10/03/24 13:36 12:04 14:24 Wound Care Center Nurse 3 #4- L MED HEEL -Ulcer Cleansing Rinsed/ Rinsed/ Rinsed/ Irrigated with Irrigated with Irrigated with Saline Saline Saline -Foul Odor after Cleansing No -Primary Dressing Applied AMD Dressing Promogran Promogran 4x4 Catherine Matter Catherine Matter -Other Dressing Kd HEEL HAT; DRSG PER GM RN -Primary Dressing Covered/Secured with Dry Gauze & Dry Gauze & Dry Gauze & Roll Gauze, Roll Gauze, Roll Gauze, Secured with Secured with Secured with Tape Tape Tape -AMD Dressing 4x4 1 -Promogran Catherine Matter 1 1 LLE -Compression Wrap Kd Wrap BLE -Compression Wrap Kd Wrap -Other both 4 in and 6 in bilat. Treatment Response Procedure Tolerated Well Pain Scale: 0-10 Numeric Is Patient Pain Free? Yes Yes Yes - Visit Discharge Discharge Condition Stable Stable Ambulatory Status Wheelchair Wheelchair Transportation Private Auto Private Auto Accompanied by Medication Reconcilliation completed & No provided to patient/care provider Clinical Summary of Care Provided Yes Facility Type Home Health Assessment/Plan Assessment/Plan (1) Non-pressure chronic ulcer of left heel and midfoot with fat layer exposed: CODE(S): L97.422 - Non-pressure chronic ulcer of left heel and midfoot with fat layer exposed PLAN: Patient was examined and evaluated. All findings were discussed with the patient. All questions were answered to the patient's satisfaction. Excisional debridement down to including subcutaneous tissue of the full- thickness wound to the left medial heel with a number 5 mm dermal curette down without incident. Predebridement measurement was 1.6 x 2.0 x 0.1 cm. Postdebridement measurement is 1.8 x 2.2 x 0.1 cm. The left ear was wiped clean and patted dry. Moist Catherine was applied to the area followed by dry sterile dressing and Kd wrap. Patient will continue every daily dressing changes. Educated the patient and his about strict blood sugar control. Will continue to offload and weight-bear as tolerated. Follow-up at the wound care center with Dr. Spann in 2 week.
== END 2024-10-04 23:59 | disposition home or self-care (01) ==
LOC: WC 13:30
PROVIDERS: PCP Internal Medicine; Referring Provider Podiatrist Foot & Ankle Surgery; Visit Provider Podiatrist Foot & Ankle Surgery
DX: E11.621 Type 2 diabetes mellitus with foot ulcer (principal); C46.9 Kaposi's sarcoma, unspecified; L97.422 Non-pressure chronic ulcer of left heel and midfoot with fat layer exposed; I48.91 Unspecified atrial fibrillation; E11.51 Type 2 diabetes mellitus with diabetic peripheral angiopathy without gangrene; Z79.4 Long term (current) use of insulin; E11.42 Type 2 diabetes mellitus with diabetic polyneuropathy; I87.2 Venous insufficiency (chronic) (peripheral); I10 Essential (primary) hypertension; M19.90 Unspecified osteoarthritis, unspecified site; E03.9 Hypothyroidism, unspecified; K21.9 Gastro-esophageal reflux disease without esophagitis; E78.5 Hyperlipidemia, unspecified; H54.8 Legal blindness, as defined in USA; R60.0 Localized edema; Z79.01 Long term (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 of anticoagulants; Z79.899 Other long term (current) drug therapy; Z87.891 Personal history of nicotine dependence; Z86.718 Personal history of other venous thrombosis and embolism; Z98.1 Arthrodesis status
CPT/HCPCS: 11042

== ENCOUNTER → 2024-10-15 | Outpatient (CLI) | payer MEDICARE, OTHER, SELFPAY | END | disposition home or self-care (01) | LOC: LABSPEC 16:20 | PROVIDERS: PCP Internal Medicine; Referring Provider Urology; Visit Provider Urology | DX: N40.1 Benign prostatic hyperplasia with lower urinary tract symptoms (principal) | CPT/HCPCS: 87086; 87088 ==

== ENCOUNTER 2024-10-31 13:30 | Outpatient (RCR) | payer MEDICARE, OTHER, SELFPAY ==
[2024-10-17 13:45] VITALS: BP 137/52; PULSE 69; RESP 18; TEMP 37.1
--- NOTE | 2024-10-17 14:24 | PN.PCM_ITS ---
History of Present Illness Chief Complaint: Left heel ulceration History of Wound: This is a 78-year-old male with an ulceration on the medial aspect of his left heel. The patient has been under the care of Dr. Olaf Spann, for whom a courtesy visit is provided in his absence. The patient suffers from multiple pre-existing medical problems, including diabetes mellitus, type II. The patient's other pre-existing medical conditions are listed herein. The patient is not a smoker. 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 He is not active. He claims to sit throughout the day quite a bit. He notes chronic swelling in his lower extremities. He sleeps on a flat surface at night. He possesses CircAid Velcro compression garments, but has not been using these on a regular basis. He also has pneumatic mechanical compression pumps, which have been used sparingly. The patient is on chronic systemic anticoagulation. Objective Data Objective Data Vital Signs: Vital Signs Temp Pulse Resp BP O2 Del Method 98.7 F 69 18 137/52 H Room Air 10/17/24 13:45 10/17/24 13:45 10/17/24 13:45 10/17/24 13:45 10/17/24 13:45 Oxygen Delivery Method Room Air Debridement Note Debridement Note Post-Debridement Measurements and Additional Note: Post-Debridement Measurements/Treatment - Nurse 1 - General Ulcer Assessment Start: 10/17/24 13:45 Freq: Status: Active Protocol: WC.LOWEXT Activity Type Activity Date Activity User E-sign Co-sign Detail Recorded Client Recorded Date Recorded By Document 10/17/24 13:45 KW [id number] 10/17/24 13:57 KW 10/17/24 13:45 - Today's Visit Information Type of service Follow-up Visit (Physician/[employer] SOLUTION MANAGER CONSULTANT ) Arrival Mode Wheelchair Accompanied by Patient Identification Verified (Name & Yes ) Vital Signs Temperature (97.8 F-99.1 F) 98.7 F Temperature Source Temporal Pulse Rate (60-100) 69 Pulse Location Monitor Respiratory Rate (12-18) 18 Respiratory rate source Observation Oxygen Delivery Method Room Air Blood Pressure (90/60-120/80) 137/52 H Blood Pressure Mean (mm Hg) 80 Source Monitor Position Sitting Blood Pressure Location Right Arm History Since Last Visit- (Skip if this is Patient's initial visit) Have you changed medications since your No last visit? Any new allergies or adverse reactions No Had a fall/change in ADL's that may No increase risk of falls Signs or symptoms of abuse and/or No neglect since last visit Have you been in the hospital since your No last visit? Has dressing in place as prescribed Yes Has compression in place as prescribed Yes Has offloadiing in place as prescribed N/A Experienced any changes in pain level or No management Left Footwear Regular Shoe Right Footwear Regular Shoe Pain Scale: 0-10 Numeric Is Patient Pain Free? Yes WC - Nurse 1 - General Ulcer Measurement Start: 10/17/24 13:45 Freq: Status: Active Protocol: Activity Type Activity Date Activity User E-sign Co-sign Detail Recorded Client Recorded Date Recorded By Document 10/17/24 13:45 ALEC [id number] 10/17/24 13:57 ALEC 10/17/24 13:45 Wound Center Nurse 1 #4- L MED HEEL -Current Size (cm) - Length 1 -Current Size (cm) - Width 2 -Current Size (cm) - Depth 0.1 -Total Square Cm 2 -Date of Last Picture (Recall this 10/17/24 field) -Exudate Amt Medium -Exudate Type Serosanguineous -Wound Margin Distinct, Outline Attached -Granulation Amt Large (67-100%) -Granulation Quality Hyper- granulation, [place] -Texture (Hannah-wound Skin Appearance) Assessed -Moisture (Hannah-wound Skin Appearance) Assessed -Color (Hannah-wound Skin Appearance) Assessed -Temperature (Hannah-wound Skin No Abnormality Appearance) (Pt Warm) -Tenderness on Palpation (Hannah-wound No Skin Appearance) -Ulcer Cleansing Rinsed/ Irrigated with Saline -Foul Odor after Cleansing No -Anesthetic Used 5% Lidocaine Gel Left Calf (cm) 48.5 Left Ankle (cm) 32 WC - Nurse 2 - General Ulcer CM Notes Start: 10/17/24 13:45 Freq: Status: Active Protocol: Activity Type Activity Date Activity User E-sign Co-sign Detail Recorded Client Recorded Date Recorded By Document 10/17/24 14:03 AMPARO [id number] 10/17/24 14:06 AMPARO 10/17/24 14:03 Wound Center Nurse 2 #4- L MED HEEL -Time 14:04 -Correct Patient Yes -Correct Side, Site, Position Yes -Correct Procedure Yes -Procedure Performed Yes -Type of Procedure Debridement -Clinical Debridement Subcutaneous -Tissue Removed Subcutaneous -Post Debridement (cm) - Length 1.7 -Post Debridement (cm) - Width 2.0 -Post Debridement (cm) - Depth 0.1 -Total Square (Post) (cm) 3.40 -Area of Debridement (cm) - Length 1.7 -Area of Debridement (cm) - Width 2.0 -Total Square (Area) (cm) 3.40 -Tunneling No -Undermining/Tunneling No -Circular Undermining No -Wound/Ulcer Outcome Not Healed -Ulcer Cleansing Rinsed/ Irrigated with Saline -Foul Odor after Cleansing No -Bioengineered Tissue No -Bleeding Controlled with Pressure -Treatment Response Procedure Tolerated Well -Offloading No -Debridement - Subq, 1st 20sq cm Yes Pain Scale: 0-10 Numeric Is Patient Pain Free? Yes - Nurse 3 - General Ulcer D/C NN Start: 10/17/24 13:45 Freq: Status: Active Protocol: Activity Type Activity Date Activity User E-sign Co-sign Detail Recorded Client Recorded Date Recorded By Document 10/17/24 14:11 [id number] 10/17/24 14:12 10/17/24 14:11 Wound Care Center Nurse 3 #4- L MED HEEL -Ulcer Cleansing Not Cleansed -Foul Odor after Cleansing No -Primary Dressing Applied Promogran Catherine Matter -Primary Dressing Covered/Secured with Dry Gauze & Roll Gauze, Secured with Tape -Promogran Catherine Matter 1 LLE -Lotion applied to leg before No compression wrap -Compression Wrap Kd Wrap Pain Scale: 0-10 Numeric Is Patient Pain Free? Yes - Visit Discharge Discharge Condition Stable Ambulatory Status Wheelchair Transportation Private Auto
--- NOTE | 2024-10-17 14:41 | PN.PCM_ITS ---
History of Present Illness Date of Service: 10/17/24 Chief Complaint: Left heel ulceration History of Wound: This is a 78-year-old male with an ulceration on the medial aspect of his left heel. The patient has been under the care of Dr. Olaf Spann, for whom a courtesy visit is provided in his absence. The patient suffers from multiple pre-existing medical problems, including diabetes mellitus, type II. The patient's other pre-existing medical conditions are listed herein. The patient is not a smoker. 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 He is not active. He claims to sit throughout the day quite a bit. He notes chronic swelling in his lower extremities. He sleeps on a flat surface at night. He possesses CircAid Velcro compression garments, but has not been using these on a regular basis. He also has pneumatic mechanical compression pumps, which have been used sparingly. The patient is on chronic systemic anticoagulation. Progress of Wound: Stable full-thickness wound to the medial aspect of the left heel. Subjective Subjective Patient is a 78-year-old diabetic male presenting to wound care center today for follow-up evaluation of full-thickness wound to the medial aspect of the left heel. Patient has been compliant with dressing changes with Catherine and dry sterile dressing compression wrap. Patient currently has UTI and is on 2 antibiotics from his primary doctor. Things are going well. His admits great improvement to the full-thickness wound to the left foot. Patient denies any trauma or falls. Denies constitutional symptoms. No other pedal complaints at this time. Objective Data Objective Data Vital Signs: Vital Signs Temp Pulse Resp BP O2 Del Method 98.7 F 69 18 137/52 H Room Air 10/17/24 13:45 10/17/24 13:45 10/17/24 13:45 10/17/24 13:45 10/17/24 13:45 Oxygen Delivery Method Room Air Physical Exam Narrative Vascular: DP and PT pulses are faintly palpable. CFT is brisk. Nonpitting edema appreciated to bilateral lower extremity. Skin temperature gradient warm to warm from proximal ankles to distal digit bilateral. Evidence of hemosiderin deposits bilateral. No erythema. No ecchymosis. Neurological: Light touch intact. Protective station is diminished. Dermatological: Full-thickness wound to the left medial heel measuring 1.7 x 2.0 x 0.1 cm Wound base is granular with no sign of infection. Excisional debridement down to including subcutaneous tissue of the full- thickness wound to the left medial heel with a number 5 mm dermal curette down without incident. Predebridement measurement was 1.5 x 1.8 x 0.1 cm. Postdebridement measurement is 1.7 x 2.0 x 0.1 cm. Musculoskeletal: Muscle strength is 5 out of 5 in all quadrants bilateral. No pain on palpation to full-thickness wound on the left leg or right anterior leg. No pain with calf pressure. Debridement Note Debridement Note Debridement Free Text: Excisional debridement down to including subcutaneous tissue of the full-thickness wound to the left medial heel with a number 5 mm dermal curette down without incident. Predebridement measurement was 1.5 x 1.8 x 0.1 cm. Postdebridement measurement is 1.7 x 2.0 x 0.1 cm. Post-Debridement Measurements and Additional Note: Post-Debridement Measurements/Treatment WC - Nurse 1 - General Ulcer Assessment Start: 10/17/24 13:45 Freq: Status: Active Protocol: [place] Activity Type Activity Date Activity User E-sign Co-sign Detail Recorded Client Recorded Date Recorded By Document 10/17/24 13:45 [id number] 10/17/24 13:57 KW 10/17/24 13:45 - Today's Visit Information Type of service Follow-up Visit (Physician/[employer] ) Arrival Mode Wheelchair Accompanied by Patient Identification Verified (Name & Yes ) Vital Signs Temperature (97.8 F-99.1 F) 98.7 F Temperature Source Temporal Pulse Rate (60-100) 69 Pulse Location Monitor Respiratory Rate (12-18) 18 Respiratory rate source Observation Oxygen Delivery Method Room Air Blood Pressure (90/60-120/80) 137/52 H Blood Pressure Mean (mm Hg) 80 Source Monitor Position Sitting Blood Pressure Location Right Arm History Since Last Visit- (Skip if this is Patient's initial visit) Have you changed medications since your No last visit? Any new allergies or adverse reactions No Had a fall/change in ADL's that may No increase risk of falls Signs or symptoms of abuse and/or No neglect since last visit Have you been in the hospital since your No last visit? Has dressing in place as prescribed Yes Has compression in place as prescribed Yes Has offloadiing in place as prescribed N/A Experienced any changes in pain level or No management Left Footwear Regular Shoe Right Footwear Regular Shoe Pain Scale: 0-10 Numeric Is Patient Pain Free? Yes - Nurse 1 - General Ulcer Measurement Start: 10/17/24 13:45 Freq: Status: Active Protocol: Activity Type Activity Date Activity User E-sign Co-sign Detail Recorded Client Recorded Date Recorded By Document 10/17/24 13:45 KW [id number] 10/17/24 13:57 10/17/24 13:45 Wound Center Nurse 1 #4- L MED HEEL -Current Size (cm) - Length 1 -Current Size (cm) - Width 2 -Current Size (cm) - Depth 0.1 -Total Square Cm 2 -Date of Last Picture (Recall this 10/17/24 field) -Exudate Amt Medium -Exudate Type Serosanguineous -Wound Margin Distinct, Outline Attached -Granulation Amt Large (67-100%) -Granulation Quality Hyper- granulation, [place] -Texture (Hannah-wound Skin Appearance) Assessed -Moisture (Hannah-wound Skin Appearance) Assessed -Color (Hannah-wound Skin Appearance) Assessed -Temperature (Hannah-wound Skin No Abnormality Appearance) (Pt Warm) -Tenderness on Palpation (Hnanah-wound No Skin Appearance) -Ulcer Cleansing Rinsed/ Irrigated with Saline -Foul Odor after Cleansing No -Anesthetic Used 5% Lidocaine Gel Left Calf (cm) 48.5 Left Ankle (cm) 32 - Nurse 2 - General Ulcer CM Notes Start: 10/17/24 13:45 Freq: Status: Active Protocol: Activity Type Activity Date Activity User E-sign Co-sign Detail Recorded Client Recorded Date Recorded By Document 10/17/24 14:03 JF [id number] 10/17/24 14:06 10/17/24 14:03 Wound Center Nurse 2 #4- L MED HEEL -Time 14:04 -Correct Patient Yes -Correct Side, Site, Position Yes -Correct Procedure Yes -Procedure Performed Yes -Type of Procedure Debridement -Clinical Debridement Subcutaneous -Tissue Removed Subcutaneous -Post Debridement (cm) - Length 1.7 -Post Debridement (cm) - Width 2.0 -Post Debridement (cm) - Depth 0.1 -Total Square (Post) (cm) 3.40 -Area of Debridement (cm) - Length 1.7 -Area of Debridement (cm) - Width 2.0 -Total Square (Area) (cm) 3.40 -Tunneling No -Undermining/Tunneling No -Circular Undermining No -Wound/Ulcer Outcome Not Healed -Ulcer Cleansing Rinsed/ Irrigated with Saline -Foul Odor after Cleansing No -Bioengineered Tissue No -Bleeding Controlled with Pressure -Treatment Response Procedure Tolerated Well -Offloading No -Debridement - Subq, 1st 20sq cm Yes Pain Scale: 0-10 Numeric Is Patient Pain Free? Yes - Nurse 3 - General Ulcer D/C NN Start: 10/17/24 13:45 Freq: Status: Active Protocol: Activity Type Activity Date Activity User E-sign Co-sign Detail Recorded Client Recorded Date Recorded By Document 10/17/24 14:11 [id number] 10/17/24 14:12 10/17/24 14:11 Wound Care Center Nurse 3 #4- L MED HEEL -Ulcer Cleansing Not Cleansed -Foul Odor after Cleansing No -Primary Dressing Applied Promogran Catherine Matter -Primary Dressing Covered/Secured with Dry Gauze & Roll Gauze, Secured with Tape -Promogran Catherine Matter 1 LLE -Lotion applied to leg before No compression wrap -Compression Wrap Kd Wrap Pain Scale: 0-10 Numeric Is Patient Pain Free? Yes - Visit Discharge Discharge Condition Stable Ambulatory Status Wheelchair Transportation Private Auto Assessment/Plan Assessment/Plan (1) Non-pressure chronic ulcer of left heel and midfoot with fat layer exposed: CODE(S): L97.422 - Non-pressure chronic ulcer of left heel and midfoot with fat layer exposed PLAN: Patient was examined and evaluated. All findings were discussed with the patient. All questions were answered to the patient's satisfaction. Excisional debridement down to including subcutaneous tissue of the full- thickness wound to the left medial heel with a number 5 mm dermal curette down without incident. Predebridement measurement was 1.5 x 1.8 x 0.1 cm. Postdebridement measurement is 1.7 x 2.0 x 0.1 cm. The left foot was wiped clean and patted dry. Moist Catherine was applied to the area followed by dry sterile dressing and Kd wrap. Patient will continue every daily dressing changes. Educated the patient and his about strict blood sugar control. Will continue to offload and weight-bear as tolerated. Educated the patient to continue all his antibiotics until gone. Follow-up at the wound care center with Dr. Spann in 2 week.
--- NOTE | 2024-10-18 09:59 | WC ---
PHOTO-LT HEEL 10/17/24
[2024-10-31 13:44] VITALS: PULSE 86; RESP 18; TEMP 36.6
--- NOTE | 2024-10-31 13:59 | PCM.WC.PN ---
History of Present Illness Date of Service: 10/31/24 Chief Complaint: Left heel ulceration History of Wound: This is a 78-year-old male with an ulceration on the medial aspect of his left heel. The patient has been under the care of Dr. Olaf Spann, for whom a courtesy visit is provided in his absence. The patient suffers from multiple pre-existing medical problems, including diabetes mellitus, type II. The patient's other pre-existing medical conditions are listed herein. The patient is not a smoker. 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 He is not active. He claims to sit throughout the day quite a bit. He notes chronic swelling in his lower extremities. He sleeps on a flat surface at night. He possesses CircAid Velcro compression garments, but has not been using these on a regular basis. He also has pneumatic mechanical compression pumps, which have been used sparingly. The patient is on chronic systemic anticoagulation. Progress of Wound: Stable full-thickness wound to the medial aspect of the left heel. Subjective Subjective Patient is a 78-year-old diabetic male presenting to wound care center today follow-up evaluation of full-thickness wound to the medial aspect of the left heel. Patient has been compliant with every other day dressing changes and Kd wrap for compression. He admits great improvement to the wound. He has no evidence of infection at this time. He denies trauma. Denies constitutional symptoms. No other pedal complaints at this time. Objective Data Objective Data Vital Signs: Vital Signs Temp Pulse Resp BP O2 Del Method 98 F 86 18 137/52 H Room Air 10/31/24 13:44 10/31/24 13:44 10/31/24 13:44 10/17/24 13:45 10/17/24 13:45 Oxygen Delivery Method Room Air Physical Exam Narrative Vascular: DP and PT pulses are faintly palpable. CFT is brisk. Nonpitting edema appreciated to bilateral lower extremity. Skin temperature gradient warm to warm from proximal ankles to distal digit bilateral. Evidence of hemosiderin deposits bilateral. No erythema. Neurological: Light touch intact. Protective station is diminished. Dermatological: Full-thickness wound to the left medial heel measuring 1.4 x 1.8 x 0.1 cm. Wound base is granular with no sign of infection. Excisional debridement down to including subcutaneous tissue of the full-thickness wound to the left medial heel with a number 5 mm dermal curette down without incident. Predebridement measurement was 1.1 x 1.5 x 0.1 cm. Postdebridement measurement is 1.4 x 1.8 x 0.1 cm. Musculoskeletal: Muscle strength is 5 out of 5 in all quadrants bilateral. No pain on palpation to full-thickness wound on the left leg or right anterior leg. No pain with calf pressure. Debridement Note Debridement Note Debridement Free Text: Excisional debridement down to including subcutaneous tissue of the full-thickness wound to the left medial heel with a number 5 mm dermal curette down without incident. Predebridement measurement was 1.1 x 1.5 x 0.1 cm. Postdebridement measurement is 1.4 x 1.8 x 0.1 cm. Post-Debridement Measurements and Additional Note: Post-Debridement Measurements/Treatment WC - Nurse 1 - General Ulcer Assessment Start: 10/17/24 13:45 Freq: Status: Active Protocol: [place] Activity Type Activity Date Activity User E-sign Co-sign Detail Recorded Client Recorded Date Recorded By Document 10/17/24 13:45 KW [id number] 10/17/24 13:57 KW Document 10/31/24 13:44 DL [id number] 10/31/24 13:47 DL 10/17/24 10/31/24 13:45 13:44 - Today's Visit Information Type of service Follow-up Visit Follow-up Visit (Physician/TRUCKER HAND (Physician/TRUCKER HAND ) ) Arrival Mode Wheelchair Wheelchair Transfer Assistance Manual Transfer Assist (Other) X1 Accompanied by Patient Identification Verified (Name & Yes Yes ) Patient Requires Transmission-Based No Precautions Vital Signs Temperature (97.8 F-99.1 F) 98.7 F 98 F Temperature Source Temporal Temporal Pulse Rate (60-100) 69 86 Pulse Location Monitor Monitor Respiratory Rate (12-18) 18 18 Respiratory rate source Observation Observation Oxygen Delivery Method Room Air Blood Pressure (90/60-120/80) 137/52 H Blood Pressure Mean (mm Hg) 80 Source Monitor Position Sitting Blood Pressure Location Right Arm History Since Last Visit- (Skip if this is Patient's initial visit) Have you changed medications since your No No last visit? Any new allergies or adverse reactions No No Had a fall/change in ADL's that may No No increase risk of falls Signs or symptoms of abuse and/or No No neglect since last visit Have you been in the hospital since your No No last visit? Has dressing in place as prescribed Yes Yes Has compression in place as prescribed Yes Yes Has offloadiing in place as prescribed N/A Yes Experienced any changes in pain level or No No management Left Footwear Regular Shoe Right Footwear Regular Shoe Pain Scale: 0-10 Numeric Is Patient Pain Free? Yes Yes WC - Nurse 1 - General Ulcer Measurement Start: 10/17/24 13:45 Freq: Status: Active Protocol: Activity Type Activity Date Activity User E-sign Co-sign Detail Recorded Client Recorded Date Recorded By Document 10/17/24 13:45 KW [id number] 10/17/24 13:57 KW Document 10/31/24 13:44 DL [id number] 10/31/24 13:47 DL 10/17/24 10/31/24 13:45 13:44 Wound Center Nurse 1 #4- L MED HEEL -Current Size (cm) - Length 1 1.6 -Current Size (cm) - Width 2 1.8 -Current Size (cm) - Depth 0.1 0.1 -Total Square Cm 2 2.88 -Date of Last Picture (Recall this 10/17/24 field) -Photo Taken Yes -Exudate Amt Medium Medium -Exudate Type Serosanguineous Serosanguineous -Wound Margin Distinct, Thickened Outline Attached -Granulation Amt Large (67-100%) None Present (0 %) -Granulation Quality Hyper- granulation, [place] -Necrosis Amt Large (67-100%) -Necrotic Tissue Type Adherent Slough -Structure Exposed N/A -Texture (Hannah-wound Skin Appearance) Assessed Scarring -Moisture (Hannah-wound Skin Appearance) Assessed No Abnormality -Color (Hannah-wound Skin Appearance) Assessed No Abnormality -Temperature (Hannah-wound Skin No Abnormality No Abnormality Appearance) (Pt Warm) (Pt Warm) -Tenderness on Palpation (Hannah-wound No No Skin Appearance) -Ulcer Cleansing Rinsed/ Soap and Water Irrigated with Saline -Foul Odor after Cleansing No No -Anesthetic Used 5% Lidocaine 5% Lidocaine Gel Gel Left Calf (cm) 48.5 48 Left Ankle (cm) 32 32 WC - Nurse 2 - General Ulcer CM Notes Start: 10/17/24 13:45 Freq: Status: Active Protocol: Activity Type Activity Date Activity User E-sign Co-sign Detail Recorded Client Recorded Date Recorded By Document 10/17/24 14:03 [id number] 10/17/24 14:06 Document 10/31/24 13:54 [id number] 10/31/24 13:56 10/17/24 10/31/24 14:03 13:54 Wound Center Nurse 2 #4- L MED HEEL -Time 14:04 13:54 -Correct Patient Yes Yes -Correct Side, Site, Position Yes Yes -Correct Procedure Yes Yes -Procedure Performed Yes Yes -Type of Procedure Debridement Debridement -Clinical Debridement Subcutaneous Subcutaneous -Tissue Removed Subcutaneous Subcutaneous -Post Debridement (cm) - Length 1.7 1.4 -Post Debridement (cm) - Width 2.0 1.8 -Post Debridement (cm) - Depth 0.1 0.1 -Total Square (Post) (cm) 3.40 2.52 -Area of Debridement (cm) - Length 1.7 1.4 -Area of Debridement (cm) - Width 2.0 1.8 -Total Square (Area) (cm) 3.40 2.52 -Tunneling No No -Undermining/Tunneling No No -Circular Undermining No No -Wound/Ulcer Outcome Not Healed Not Healed -Ulcer Cleansing Rinsed/ Rinsed/ Irrigated with Irrigated with Saline Saline -Foul Odor after Cleansing No No -Bioengineered Tissue No No -Bleeding Controlled with Pressure Pressure -Treatment Response Procedure Procedure Tolerated Well Tolerated Well -Offloading No No -Debridement - Subq, 1st 20sq cm Yes Yes Pain Scale: 0-10 Numeric Is Patient Pain Free? Yes Yes - Nurse 3 - General Ulcer D/C NN Start: 10/17/24 13:45 Freq: Status: Active Protocol: Activity Type Activity Date Activity User E-sign Co-sign Detail Recorded Client Recorded Date Recorded By Document 10/17/24 14:11 [id number] 10/17/24 14:12 10/17/24 14:11 Wound Care Center Nurse 3 #4- L MED HEEL -Ulcer Cleansing Not Cleansed -Foul Odor after Cleansing No -Primary Dressing Applied Promogran Catherine Matter -Primary Dressing Covered/Secured with Dry Gauze & Roll Gauze, Secured with Tape -Promogran Catherine Matter 1 LLE -Lotion applied to leg before No compression wrap -Compression Wrap Kd Wrap Pain Scale: 0-10 Numeric Is Patient Pain Free? Yes WC - Visit Discharge Discharge Condition Stable Ambulatory Status Wheelchair Transportation Private Auto Assessment/Plan Assessment/Plan (1) Non-pressure chronic ulcer of left heel and midfoot with fat layer exposed: CODE(S): L97.422 - Non-pressure chronic ulcer of left heel and midfoot with fat layer exposed PLAN: Patient was examined and evaluated. All findings were discussed with the patient. All questions were answered to the patient's satisfaction. Excisional debridement down to including subcutaneous tissue of the full-thickness wound to the left medial heel with a number 5 mm dermal curette down without incident. Predebridement measurement was 1.1 x 1.5 x 0.1 cm. Postdebridement measurement is 1.4 x 1.8 x 0.1 cm. The left foot was wiped clean and patted dry. Moist Catherine was applied to the area followed by dry sterile dressing and Kd wrap. Patient will continue every other day dressing changes. Educated the patient and his about strict blood sugar control. Will continue to offload and weight-bear as tolerated. Educated the patient to continue all his antibiotics until gone. Follow-up at the wound care center with Dr. Spann in 2 week.
== END 2024-11-04 23:59 | disposition home or self-care (01) ==
LOC: WC 13:30
PROVIDERS: PCP Internal Medicine; Referring Provider Podiatrist Foot & Ankle Surgery; Visit Provider Podiatrist Foot & Ankle Surgery
DX: E11.621 Type 2 diabetes mellitus with foot ulcer (principal); L97.422 Non-pressure chronic ulcer of left heel and midfoot with fat layer exposed; Z79.4 Long term (current) use of insulin; H54.8 Legal blindness, as defined in USA; M79.89 Other specified soft tissue disorders; Z79.01 Long term (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 of anticoagulants; Z79.2 Long term (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 of antibiotics; Z79.899 Other long term (current) drug therapy; R60.0 Localized edema
CPT/HCPCS: 11042

== ENCOUNTER → 2024-11-23 | Outpatient (CLI) | payer MEDICARE, OTHER, SELFPAY ==
[2024-11-23 17:31] LABS: PSA,Total- Diagnostic 0.74 ng/mL (0.00-4.00)
== END | disposition home or self-care (01) ==
LOC: LAB 15:35
PROVIDERS: PCP Internal Medicine; Referring Provider Urology; Visit Provider Urology
DX: N40.1 Benign prostatic hyperplasia with lower urinary tract symptoms (principal)
CPT/HCPCS: 36415; 84153

== ENCOUNTER 2024-11-28 13:30 | Outpatient (RCR) | payer MEDICARE, OTHER, SELFPAY ==
[2024-11-14 12:06] VITALS: RESP 18
--- NOTE | 2024-11-14 12:37 | PCM.WC.PN ---
History of Present Illness Date of Service: 11/14/24 Chief Complaint: Left heel ulceration History of Wound: This is a 78-year-old male with an ulceration on the medial aspect of his left heel. The patient has been under the care of Dr. Olaf Spann, for whom a courtesy visit is provided in his absence. The patient suffers from multiple pre-existing medical problems, including diabetes mellitus, type II. The patient's other pre-existing medical conditions are listed herein. The patient is not a smoker. 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 He is not active. He claims to sit throughout the day "quite a bit". He notes chronic swelling in his lower extremities. He sleeps on a flat surface at night. He possesses CircAid Velcro compression garments, but has not been using these on a regular basis. He also has pneumatic mechanical compression pumps, which have been used sparingly. The patient is on chronic systemic anticoagulation. Progress of Wound: Stable full-thickness wound to the medial aspect of the left heel. Subjective Subjective Patient is a 78-year-old diabetic male presenting to wound care center today follow-up evaluation of full-thickness wound to the medial aspect of the left heel. Patient has been doing dressing changes with moist Catherine every other day with Kd wrap's. Great improvement to the wound. His blood sugars well-controlled. He denies trauma. Denies constitutional symptoms. No other pedal complaints at this time. Objective Data Objective Data Vital Signs: Vital Signs Resp O2 Del Method 18 Room Air 11/14/24 12:06 11/14/24 12:06 Oxygen Delivery Method Room Air Physical Exam Narrative Vascular: DP and PT pulses are faintly palpable. CFT is brisk. Nonpitting edema appreciated to bilateral lower extremity. Skin temperature gradient warm to warm from proximal ankles to distal digit bilateral. Evidence of hemosiderin deposits bilateral. No erythema. Neurological: Light touch intact. Protective station is diminished. Dermatological: Full-thickness wound to the left medial heel measuring 1.4 x 1.6 x 0.1 cm. Wound base is granular with no sign of infection. Excisional debridement down to including subcutaneous tissue of the full-thickness wound to the left medial heel with a number 5 mm dermal curette down without incident. Predebridement measurement was 1.2 x 1.4 x 0.1 cm. Postdebridement measurement is 1.4 x 1.6 x 0.1 cm. Musculoskeletal: Muscle strength is 5 out of 5 in all quadrants bilateral. No pain on palpation to full-thickness wound on the left leg or right anterior leg. No pain with calf pressure. Debridement Note Debridement Note Debridement Free Text: Excisional debridement down to including subcutaneous tissue of the full-thickness wound to the left medial heel with a number 5 mm dermal curette down without incident. Predebridement measurement was 1.2 x 1.4 x 0.1 cm. Postdebridement measurement is 1.4 x 1.6 x 0.1 cm. Post-Debridement Measurements and Additional Note: Post-Debridement Measurements/Treatment [place] - Nurse 1 - General Ulcer Assessment Start: 11/14/24 12:06 Freq: Status: Active Protocol: JORGE Activity Type Activity Date Activity User E-sign Co-sign Detail Recorded Client Recorded Date Recorded By Document 11/14/24 12:06 ALEC [id number] 11/14/24 12:09 ALEC 11/14/24 12:06 WC - Today's Visit Information Type of service Follow-up Visit (Physician/SAMPLE WASHER ) Arrival Mode Ambulatory Patient Identification Verified (Name & Yes ) Vital Signs Temperature Source Temporal Pulse Location Monitor Respiratory Rate (12-18) 18 Respiratory rate source Observation Oxygen Delivery Method Room Air Source Monitor Position Semi-Fowlers Blood Pressure Location Left Arm History Since Last Visit- (Skip if this is Patient's initial visit) Have you changed medications since your No last visit? Any new allergies or adverse reactions No Had a fall/change in ADL's that may No increase risk of falls Signs or symptoms of abuse and/or No neglect since last visit Have you been in the hospital since your No last visit? Has dressing in place as prescribed Yes Has compression in place as prescribed Yes Has offloadiing in place as prescribed N/A Experienced any changes in pain level or No management Left Footwear Regular Shoe Right Footwear Regular Shoe Pain Scale: 0-10 Numeric Is Patient Pain Free? Yes [place] - Nurse 1 - General Ulcer Measurement Start: 11/14/24 12:06 Freq: Status: Active Protocol: Activity Type Activity Date Activity User E-sign Co-sign Detail Recorded Client Recorded Date Recorded By Document 11/14/24 12:06 ALEC [id number] 11/14/24 12:09 11/14/24 12:06 Wound Center Nurse 1 #4- L MED HEEL -Current Size (cm) - Length 1.8 -Current Size (cm) - Width 2 -Current Size (cm) - Depth 0.1 -Total Square Cm 3.6 -Date of Last Picture (Recall this 11/14/24 field) -Exudate Amt Small -Exudate Type Serosanguineous -Wound Margin Distinct, Outline Attached -Granulation Amt Large (67-100%) -Granulation Quality [place],Red -Texture (Hannah-wound Skin Appearance) Assessed,Callus -Moisture (Hannah-wound Skin Appearance) Assessed -Color (Hannah-wound Skin Appearance) Assessed -Temperature (Hannah-wound Skin No Abnormality Appearance) (Pt Warm) -Tenderness on Palpation (Hannah-wound No Skin Appearance) -Ulcer Cleansing Rinsed/ Irrigated with Saline -Foul Odor after Cleansing No -Anesthetic Used 5% Lidocaine Gel WC - Nurse 2 - General Ulcer CM Notes Start: 11/14/24 12:06 Freq: Status: Active Protocol: Activity Type Activity Date Activity User E-sign Co-sign Detail Recorded Client Recorded Date Recorded By Document 11/14/24 12:21 [id number] 11/14/24 12:23 11/14/24 12:21 Wound Center Nurse 2 -Time 12:22 -Correct Patient Yes -Correct Side, Site, Position Yes -Correct Procedure Yes -Procedure Performed Yes -Type of Procedure Debridement -Clinical Debridement Subcutaneous -Tissue Removed Subcutaneous -Post Debridement (cm) - Length 1.4 -Post Debridement (cm) - Width 1.6 -Post Debridement (cm) - Depth 0.1 -Total Square (Post) (cm) 2.24 -Area of Debridement (cm) - Length 1.4 -Area of Debridement (cm) - Width 1.6 -Total Square (Area) (cm) 2.24 -Tunneling No -Undermining/Tunneling No -Circular Undermining No -Wound/Ulcer Outcome Not Healed -Ulcer Cleansing Rinsed/ Irrigated with Saline -Foul Odor after Cleansing No -Bioengineered Tissue No -Bleeding Controlled with Pressure -Treatment Response Procedure Tolerated Well -Offloading No -Debridement - Subq, 1st 20sq cm Yes Pain Scale: 0-10 Numeric Is Patient Pain Free? Yes Assessment/Plan Assessment/Plan (1) Non-pressure chronic ulcer of left heel and midfoot with fat layer exposed: CODE(S): L97.422 - Non-pressure chronic ulcer of left heel and midfoot with fat layer exposed PLAN: Patient was examined and evaluated. All findings were discussed with the patient. All questions were answered to the patient's satisfaction. Excisional debridement down to including subcutaneous tissue of the full-thickness wound to the left medial heel with a number 5 mm dermal curette down without incident. Predebridement measurement was 1.2 x 1.4 x 0.1 cm. Postdebridement measurement is 1.4 x 1.6 x 0.1 cm. The left foot was wiped clean and patted dry. Moist Catherine was applied to the area followed by dry sterile dressing and Kd wrap. Patient will continue every other day dressing changes. Educated the patient and his about strict blood sugar control. Will continue to offload and weight-bear as tolerated. Follow-up at the wound care center with Dr. Spann in 2 week.
--- NOTE | 2024-11-15 08:21 | WC ---
PHOTO-LEFT HEEL 11/14/24
[2024-11-28 14:34] VITALS: BP 138/66; PULSE 72; RESP 18; TEMP 36.1
--- NOTE | 2024-11-28 15:08 | PN.PCM_ITS ---
History of Present Illness Date of Service: 11/28/24 Chief Complaint: Left heel ulceration History of Wound: This is a 78-year-old male with an ulceration on the medial aspect of his left heel. The patient has been under the care of Dr. Olaf Spann, for whom a courtesy visit is provided in his absence. The patient suffers from multiple pre-existing medical problems, including diabetes mellitus, type II. The patient's other pre-existing medical conditions are listed herein. The patient is not a smoker. 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 He is not active. He claims to sit throughout the day "quite a bit". He notes chronic swelling in his lower extremities. He sleeps on a flat surface at night. He possesses CircAid Velcro compression garments, but has not been using these on a regular basis. He also has pneumatic mechanical compression pumps, which have been used sparingly. The patient is on chronic systemic anticoagulation. Progress of Wound: Stable full-thickness wound to the medial aspect of the left heel. Subjective Subjective Patient is a 78-year-old diabetic male presenting to the wound care center today follow-up evaluation of full-thickness wound to the medial left heel. Patient has been compliant with dressing changes as well as compression wraps to the bilateral lower extremity. Patient admits he is not pumping as much as he should. He denies any strikethrough. He is getting remeasured for his multilayer compression wraps of the next upcoming week. Blood sugars well- controlled. Denies trauma. Denies constitutional symptoms. No other pedal complaints at this time. Objective Data Objective Data Vital Signs: Vital Signs Temp Pulse Resp BP O2 Del Method 96.9 F L 72 18 138/66 H Room Air 11/28/24 14:34 11/28/24 14:34 11/28/24 14:34 11/28/24 14:34 11/14/24 12:06 Oxygen Delivery Method Room Air Physical Exam Narrative Vascular: DP and PT pulses are faintly palpable. CFT is brisk. Nonpitting edema appreciated to bilateral lower extremity. Skin temperature gradient warm to warm from proximal ankles to distal digit bilateral. Evidence of hemosiderin deposits bilateral. No erythema. Neurological: Light touch intact. Protective station is diminished. Dermatological: Full-thickness wound to the left medial heel measuring 1.2 x 1.4 x 0.1 cm. Wound base is granular with no sign of infection. Excisional debridement down to including subcutaneous tissue of the full- thickness wound to the left medial heel with a number 5 mm dermal curette down without incident. Predebridement measurement was 0.8 x 1.0 x 0.1 cm. Postdebridement measurement is 1.2 x 1.4 x 0.1 cm. Musculoskeletal: Muscle strength is 5 out of 5 in all quadrants bilateral. No pain on palpation to full-thickness wound on the left leg or right anterior leg. No pain with calf pressure. Debridement Note Debridement Note Debridement Free Text: Excisional debridement down to including subcutaneous tissue of the full-thickness wound to the left medial heel with a number 5 mm dermal curette down without incident. Predebridement measurement was 0.8 x 1.0 x 0.1 cm. Postdebridement measurement is 1.2 x 1.4 x 0.1 cm. Post-Debridement Measurements and Additional Note: Post-Debridement Measurements/Treatment - Nurse 1 - General Ulcer Assessment Start: 11/14/24 12:06 Freq: Status: Active Protocol: [place].DUYEN Activity Type Activity Date Activity User E-sign Co-sign Detail Recorded Client Recorded Date Recorded By Document 11/14/24 12:06 KW [id number] 11/14/24 12:09 KW Document 11/28/24 14:34 RB [id number] 11/28/24 14:36 RB 11/14/24 11/28/24 12:06 14:34 - Today's Visit Information Type of service Follow-up Visit Follow-up Visit (Physician/[employer]ANT SUPERVISOR (Physician/[employer]UM[employer] PLANT SUPERVISOR ) ) Arrival Mode Ambulatory Wheelchair Transfer Assistance Manual Accompanied by Patient Identification Verified (Name & Yes Yes ) Patient Requires Transmission-Based No Precautions Vital Signs Temperature (97.8 F-99.1 F) 96.9 F L Temperature Source Temporal Temporal Pulse Rate (60-100) 72 Pulse Location Monitor Monitor Respiratory Rate (12-18) 18 18 Respiratory rate source Observation Observation Oxygen Delivery Method Room Air Blood Pressure (90/60-120/80) 138/66 H Blood Pressure Mean (mm Hg) 90 Source Monitor Monitor Position Semi-Fowlers Semi-Fowlers Blood Pressure Location Left Arm Left Arm History Since Last Visit- (Skip if this is Patient's initial visit) Have you changed medications since your No No last visit? Any new allergies or adverse reactions No No Had a fall/change in ADL's that may No No increase risk of falls Signs or symptoms of abuse and/or No No neglect since last visit Have you been in the hospital since your No No last visit? Has dressing in place as prescribed Yes Yes Has compression in place as prescribed Yes Yes Has offloadiing in place as prescribed N/A N/A Experienced any changes in pain level or No No management Left Footwear Regular Shoe Right Footwear Regular Shoe Pain Scale: 0-10 Numeric Is Patient Pain Free? Yes Yes [facility] - Nurse 1 - General Ulcer Measurement Start: 11/14/24 12:06 Freq: Status: Active Protocol: Activity Type Activity Date Activity User E-sign Co-sign Detail Recorded Client Recorded Date Recorded By Document 11/14/24 12:06 KW [id number] 11/14/24 12:09 KW Document 11/28/24 14:34 RB [id number] 11/28/24 14:36 RB 11/14/24 11/28/24 12:06 14:34 Wound Center Nurse 1 #4- L MED HEEL -Combined with other wound No -Current Size (cm) - Length 1.8 1 -Current Size (cm) - Width 2 1.2 -Current Size (cm) - Depth 0.1 0.1 -Total Square Cm 3.6 1.2 -Date of Last Picture (Recall this 11/14/24 field) -Photo Taken Yes -Tunneling No -Undermining/Tunneling No -Circular Undermining No -Exudate Amt Small Medium -Exudate Type Serosanguineous Serosanguineous -Wound Margin Distinct, Distinct, Outline Outline Attached Attached -Granulation Amt Large (67-100%) Medium (34-66%) -Granulation Quality [place]Red [place] -Slough/Fibrin Yes -Necrosis Amt Small (1-33%) -Necrotic Tissue Type Adherent Slough -Structure Exposed N/A -Texture (Hannah-wound Skin Appearance) Assessed,Callus Assessed, Excoriation -Moisture (Hannah-wound Skin Appearance) Assessed Assessed -Color (Hannah-wound Skin Appearance) Assessed Assessed -Temperature (Hannah-wound Skin No Abnormality No Abnormality Appearance) (Pt Warm) (Pt Warm) -Tenderness on Palpation (Hannah-wound No No Skin Appearance) -Ulcer Cleansing Rinsed/ Wound Cleanser Irrigated with Saline -Foul Odor after Cleansing No No -Anesthetic Used 5% Lidocaine 5% Lidocaine Gel Gel Lower Limb Edema Present Yes Left Calf (cm) 51.6 Left Ankle (cm) 31.8 WC - Nurse 2 - General Ulcer CM Notes Start: 11/14/24 12:06 Freq: Status: Active Protocol: Activity Type Activity Date Activity User E-sign Co-sign Detail Recorded Client Recorded Date Recorded By Document 11/14/24 12:21 [id number] 11/14/24 12:23 Document 11/28/24 14:49 [id number] 11/28/24 14:50 11/14/24 11/28/24 12:21 14:49 Wound Center Nurse 2 #4- L MED HEEL -Time 12:22 14:49 -Correct Patient Yes Yes -Correct Side, Site, Position Yes Yes -Correct Procedure Yes Yes -Procedure Performed Yes Yes -Type of Procedure Debridement Debridement -Clinical Debridement Subcutaneous Subcutaneous -Tissue Removed Subcutaneous Subcutaneous -Post Debridement (cm) - Length 1.4 1.2 -Post Debridement (cm) - Width 1.6 1.4 -Post Debridement (cm) - Depth 0.1 0.1 -Total Square (Post) (cm) 2.24 1.68 -Area of Debridement (cm) - Length 1.4 1.2 -Area of Debridement (cm) - Width 1.6 1.4 -Total Square (Area) (cm) 2.24 1.68 -Tunneling No No -Undermining/Tunneling No No -Circular Undermining No No -Wound/Ulcer Outcome Not Healed Not Healed -Ulcer Cleansing Rinsed/ Rinsed/ Irrigated with Irrigated with Saline Saline -Foul Odor after Cleansing No No -Bioengineered Tissue No No -Bleeding Controlled with Pressure Pressure -Treatment Response Procedure Procedure Tolerated Well Tolerated Well -Offloading No No -Debridement - Subq, 1st 20sq cm Yes Yes Pain Scale: 0-10 Numeric Is Patient Pain Free? Yes Yes Assessment/Plan Assessment/Plan (1) Non-pressure chronic ulcer of left heel and midfoot with fat layer exposed: CODE(S): L97.422 - Non-pressure chronic ulcer of left heel and midfoot with fat layer exposed PLAN: Patient was examined and evaluated. All findings were discussed with the patient. All questions were answered to the patient's satisfaction. Excisional debridement down to including subcutaneous tissue of the full- thickness wound to the left medial heel with a number 5 mm dermal curette down without incident. Predebridement measurement was 0.8 x 1.0 x 0.1 cm. Postdebridement measurement is 1.2 x 1.4 x 0.1 cm. The left foot was wiped clean and patted dry. Moist Catherine was applied to the area followed by dry sterile dressing and Kd wrap. Patient will continue every other day dressing changes. Educated the patient and his about strict blood sugar control. Will continue to offload and weight-bear as tolerated. Follow-up at the wound care center with Dr. Spann in 2 week.
--- NOTE | 2024-11-29 14:42 | WC ---
PHOTO-LEFT HEEL
== END 2024-12-04 23:59 | disposition home or self-care (01) ==
LOC: WC 13:30
PROVIDERS: PCP Internal Medicine; Referring Provider Podiatrist Foot & Ankle Surgery; Visit Provider Podiatrist Foot & Ankle Surgery
DX: E11.621 Type 2 diabetes mellitus with foot ulcer (principal); L97.422 Non-pressure chronic ulcer of left heel and midfoot with fat layer exposed; M79.89 Other specified soft tissue disorders
CPT/HCPCS: 11042

== ENCOUNTER 2024-12-26 10:45 | Outpatient (RCR) | payer MEDICARE, OTHER, SELFPAY ==
[2024-12-12 14:34] VITALS: BP 155/85; PULSE 104; RESP 18; TEMP 36.5
--- NOTE | 2024-12-12 15:48 | PN.PCM_ITS ---
History of Present Illness Date of Service: 12/12/24 Chief Complaint: Left heel ulceration History of Wound: This is a 78-year-old male with an ulceration on the medial aspect of his left heel. The patient has been under the care of Dr. Olaf Spann, for whom a courtesy visit is provided in his absence. The patient suffers from multiple pre-existing medical problems, including diabetes mellitus, type II. The patient's other pre-existing medical conditions are listed herein. The patient is not a smoker. 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 He is not active. He claims to sit throughout the day "quite a bit". He notes chronic swelling in his lower extremities. He sleeps on a flat surface at night. He possesses CircAid Velcro compression garments, but has not been using these on a regular basis. He also has pneumatic mechanical compression pumps, which have been used sparingly. The patient is on chronic systemic anticoagulation. Progress of Wound: Stable full-thickness wound to the left heel. Subjective Subjective Mr. Renae is a 79-year-old diabetic male presenting to wound care center today for follow-up evaluation of full-thickness wound to the lateral aspect of the left heel. Has been compliant with dressing changes. He is elevating as discussed. He is not pumping because he forgets. He denies trauma. Denies constitutional symptoms. No other pedal complaints at this time Objective Data Objective Data Vital Signs: Vital Signs Temp Pulse Resp BP 97.7 F L 104 H 18 155/85 H 12/12/24 14:34 12/12/24 14:34 12/12/24 14:34 12/12/24 14:34 Physical Exam Narrative Vascular: DP and PT pulses are faintly palpable. CFT is brisk. Nonpitting edema appreciated to bilateral lower extremity. Skin temperature gradient warm to warm from proximal ankles to distal digit bilateral. Evidence of hemosiderin deposits bilateral. No erythema. Neurological: Light touch intact. Protective station is diminished. Dermatological: Full-thickness wound to the left medial heel measuring 1.0 x 1.0 x 0.1 cm. Wound base is granular with no sign of infection. Excisional debridement down to including subcutaneous tissue of the full-thi ckness wound to the left medial heel with a number 5 mm dermal curette down without incident. Predebridement measurement was 0.7 x 0.3 x 0.1 cm. Postdebridement measurement is 1.0 x 1.0 x 0.1 cm. Musculoskeletal: Muscle strength is 5 out of 5 in all quadrants bilateral. No pain on palpation to full-thickness wound on the left leg or right anterior leg. No pain with calf pressure. Debridement Note Debridement Note Debridement Free Text: Excisional debridement down to including subcutaneous tissue of the full-thickness wound to the left medial heel with a number 5 mm dermal curette down without incident. Predebridement measurement was 0.7 x 0.3 x 0.1 cm. Postdebridement measurement is 1.0 x 1.0 x 0.1 cm. Post-Debridement Measurements and Additional Note: Post-Debridement Measurements/Treatment WC - Nurse 1 - General Ulcer Assessment Start: 12/12/24 14:34 Freq: Status: Active Protocol: [place] Activity Type Activity Date Activity User E-sign Co-sign Detail Recorded Client Recorded Date Recorded By Document 12/12/24 14:34 [email or web address] [id number] 12/12/24 14:35 RB 12/12/24 14:34 WC - Today's Visit Information Type of service Follow-up Visit (Physician/CHILD DEVELOPMENT ASSISTANT ) Arrival Mode Wheelchair Transfer Assistance Manual Patient Identification Verified (Name & Yes ) Patient Requires Transmission-Based No Precautions Vital Signs Temperature (97.8 F-99.1 F) 97.7 F L Temperature Source Temporal Pulse Rate (60-100) 104 H Pulse Location Monitor Respiratory Rate (12-18) 18 Respiratory rate source Observation Blood Pressure (90/60-120/80) 155/85 H Blood Pressure Mean (mm Hg) 108 Source Monitor Position Semi-Fowlers Blood Pressure Location Left Arm History Since Last Visit- (Skip if this is Patient's initial visit) Have you changed medications since your No last visit? Any new allergies or adverse reactions No Had a fall/change in ADL's that may No increase risk of falls Signs or symptoms of abuse and/or No neglect since last visit Have you been in the hospital since your No last visit? Has dressing in place as prescribed Yes Has compression in place as prescribed Yes Has offloadiing in place as prescribed N/A Experienced any changes in pain level or No management Pain Scale: 0-10 Numeric Is Patient Pain Free? Yes - Nurse 1 - General Ulcer Measurement Start: 12/12/24 14:34 Freq: Status: Active Protocol: Activity Type Activity Date Activity User E-sign Co-sign Detail Recorded Client Recorded Date Recorded By Document 12/12/24 14:34 RB [id number] 12/12/24 14:35 RB 12/12/24 14:34 Wound Center Nurse 1 #4- L MED HEEL -Combined with other wound No -Current Size (cm) - Length 0.1 -Current Size (cm) - Width 0.1 -Current Size (cm) - Depth 0.1 -Total Square Cm 0.01 -Photo Taken Yes -Tunneling No -Undermining/Tunneling No -Circular Undermining No -Exudate Amt Small -Exudate Type Serosanguineous -Wound Margin Distinct, Outline Attached -Granulation Amt Medium (34-66%) -Granulation Quality [place] -Slough/Fibrin Yes -Necrosis Amt Medium (34-66%) -Necrotic Tissue Type Adherent Slough -Structure Exposed N/A -Texture (Hannah-wound Skin Appearance) Callus -Moisture (Hannah-wound Skin Appearance) Assessed -Color (Hannah-wound Skin Appearance) Assessed -Temperature (Hannah-wound Skin No Abnormality Appearance) (Pt Warm) -Tenderness on Palpation (Hannah-wound No Skin Appearance) -Ulcer Cleansing Wound Cleanser -Foul Odor after Cleansing No -Anesthetic Used 5% Lidocaine Gel WC - Nurse 2 - General Ulcer CM Notes Start: 12/12/24 14:34 Freq: Status: Active Protocol: Activity Type Activity Date Activity User E-sign Co-sign Detail Recorded Client Recorded Date Recorded By Document 12/12/24 14:47 AMPARO [id number] 12/12/24 14:48 AMPARO 12/12/24 14:47 Wound Center Nurse 2 -Time 14:48 -Correct Patient Yes -Correct Side, Site, Position Yes -Correct Procedure Yes -Procedure Performed Yes -Type of Procedure Debridement -Clinical Debridement Subcutaneous -Tissue Removed Subcutaneous -Post Debridement (cm) - Length 1 -Post Debridement (cm) - Width 1 -Post Debridement (cm) - Depth 0.1 -Total Square (Post) (cm) 1 -Area of Debridement (cm) - Length 1 -Area of Debridement (cm) - Width 1 -Total Square (Area) (cm) 1 -Tunneling No -Undermining/Tunneling No -Circular Undermining No -Wound/Ulcer Outcome Not Healed -Ulcer Cleansing Rinsed/ Irrigated with Saline -Foul Odor after Cleansing No -Bioengineered Tissue No -Bleeding Controlled with Pressure -Treatment Response Procedure Tolerated Well -Offloading No -Debridement - Subq, 1st 20sq cm Yes Pain Scale: 0-10 Numeric Is Patient Pain Free? Yes - Nurse 3 - General Ulcer D/C NN Start: 12/12/24 14:34 Freq: Status: Active Protocol: Activity Type Activity Date Activity User E-sign Co-sign Detail Recorded Client Recorded Date Recorded By Document 12/12/24 15:19 [id number] 12/12/24 15:20 12/12/24 15:19 Wound Care Center Nurse 3 #4- L MED HEEL -Ulcer Cleansing Not Cleansed -Foul Odor after Cleansing No -Primary Dressing Applied Promogran Catherine Matter -Primary Dressing Covered/Secured with Dry Gauze & Roll Gauze, Secured with Tape -Promogran Catherine Matter 1 LLE -Lotion applied to leg before No compression wrap -Compression Wrap Kd Wrap Pain Scale: 0-10 Numeric Is Patient Pain Free? Yes - Visit Discharge Discharge Condition Stable Ambulatory Status Wheelchair Transportation Private Auto Assessment/Plan Assessment/Plan (1) Non-pressure chronic ulcer of left heel and midfoot with fat layer exposed: CODE(S): L97.422 - Non-pressure chronic ulcer of left heel and midfoot with fat layer exposed PLAN: Patient was examined and evaluated. All findings were discussed with the patient. All questions were answered to the patient's satisfaction. Excisional debridement down to including subcutaneous tissue of the full- thickness wound to the left medial heel with a number 5 mm dermal curette down without incident. Predebridement measurement was 0.7 x 0.3 x 0.1 cm. Postdebridement measurement is 1.0 x 1.0 x 0.1 cm. The left foot was wiped clean and patted dry. Moist Catherine was applied to the area followed by dry sterile dressing and Kd wrap. Patient will continue every other day dressing changes. Educated the patient and his about strict blood sugar control. Will continue to offload and weight-bear as tolerated. Follow-up at the wound care center with Dr. Spann in 2 week.
[2024-12-26 11:05] VITALS: BP 162/80; PULSE 92; RESP 18; TEMP 36
--- NOTE | 2024-12-27 09:01 | WC ---
PHOTO - LEFT HEEL 12/26/24
--- NOTE | 2024-12-29 17:14 | PN.PCM_ITS ---
History of Present Illness Date of Service: 12/26/24 Chief Complaint: Left heel ulceration History of Wound: This is a 78-year-old male with an ulceration on the medial aspect of his left heel. The patient has been under the care of Dr. Olaf Spann, for whom a courtesy visit is provided in his absence. The patient suffers from multiple pre-existing medical problems, including diabetes mellitus, type II. The patient's other pre-existing medical conditions are listed herein. The patient is not a smoker. 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 He is not active. He claims to sit throughout the day "quite a bit". He notes chronic swelling in his lower extremities. He sleeps on a flat surface at night. He possesses CircAid Velcro compression garments, but has not been using these on a regular basis. He also has pneumatic mechanical compression pumps, which have been used sparingly. The patient is on chronic systemic anticoagulation. Progress of Wound: Stable full-thickness wound to the left heel. Subjective Subjective Patient is a 79-year-old diabetic male present to clinic today follow-up evaluation of left heel full-thickness wound. Patient has been compliant with dressing changes and been changing with moist Catherine every other day. His admits great improvement to the wound. His blood sugars well-controlled. He denies trauma. Denies constitutional symptoms. No other pedal complaints at this time. Objective Data Objective Data Vital Signs: Vital Signs Temp Pulse Resp BP 96.8 F L 92 18 162/80 H 12/26/24 11:05 12/26/24 11:05 12/26/24 11:05 12/26/24 11:05 Physical Exam Narrative Vascular: DP and PT pulses are faintly palpable. CFT is brisk. Nonpitting edema appreciated to bilateral lower extremity. Skin temperature gradient warm to warm from proximal ankles to distal digit bilateral. Evidence of hemosiderin deposits bilateral. No erythema. Neurological: Light touch intact. Protective station is diminished. Dermatological: Full-thickness wound to the left medial heel measuring 0.2 x 0.2 x 0.1 cm wound base is granular with no sign of infection. Excisional debridement down to including subcutaneous tissue of the full- thickness wound to the left medial heel with a number 5 mm dermal curette down without incident. Predebridement measurement was eschar. Postdebridement measurement is 0.2 x 0.2 x 0.1 cm. Musculoskeletal: Muscle strength is 5 out of 5 in all quadrants bilateral. No pain on palpation to full-thickness wound on the left leg or right anterior leg. No pain with calf pressure. Debridement Note Debridement Note Debridement Free Text: Excisional debridement down to including subcutaneous tissue of the full-thickness wound to the left medial heel with a number 5 mm dermal curette down without incident. Predebridement measurement was eschar. Postdebridement measurement is 0.2 x 0.2 x 0.1 cm. Post-Debridement Measurements and Additional Note: Post-Debridement Measurements/Treatment - Nurse 1 - General Ulcer Assessment Start: 12/12/24 14:34 Freq: Status: Active Protocol: JORGE Activity Type Activity Date Activity User E-sign Co-sign Detail Recorded Client Recorded Date Recorded By Document 12/12/24 14:34 RB [id number] 12/12/24 14:35 RB Document 12/26/24 11:05 RB [id number] 12/26/24 11:09 RB 12/12/24 12/26/24 14:34 11:05 - Today's Visit Information Type of service Follow-up Visit Follow-up Visit (Physician/YOUTH CARE PROFESSIONAL (Physician/YOUTH CARE PROFESSIONAL ) ) Arrival Mode Wheelchair Wheelchair Transfer Assistance Manual Manual Transfer Assist (Other) Patient Identification Verified (Name & Yes Yes ) Patient Requires Transmission-Based No No Precautions Vital Signs Temperature (97.8 F-99.1 F) 97.7 F L 96.8 F L Temperature Source Temporal Temporal Pulse Rate (60-100) 104 H 92 Pulse Location Monitor Monitor Respiratory Rate (12-18) 18 18 Respiratory rate source Observation Observation Blood Pressure (90/60-120/80) 155/85 H 162/80 H Blood Pressure Mean (mm Hg) 108 107 Source Monitor Monitor Position Semi-Fowlers Sitting Blood Pressure Location Left Arm Left Arm History Since Last Visit- (Skip if this is Patient's initial visit) Have you changed medications since your No No last visit? Any new allergies or adverse reactions No No Had a fall/change in ADL's that may No No increase risk of falls Signs or symptoms of abuse and/or No No neglect since last visit Have you been in the hospital since your No No last visit? Has dressing in place as prescribed Yes Yes Has compression in place as prescribed Yes Yes Has offloadiing in place as prescribed N/A N/A Experienced any changes in pain level or No No management Left Footwear Regular Shoe Right Footwear Regular Shoe Pain Scale: 0-10 Numeric Is Patient Pain Free? Yes Yes WC - Nurse 1 - General Ulcer Measurement Start: 12/12/24 14:34 Freq: Status: Active Protocol: Activity Type Activity Date Activity User E-sign Co-sign Detail Recorded Client Recorded Date Recorded By Document 12/12/24 14:34 RB [id number] 12/12/24 14:35 RB Document 12/26/24 11:05 RB [id number] 12/26/24 11:09 RB 12/12/24 12/26/24 14:34 11:05 Wound Center Nurse 1 #4- L MED HEEL -Combined with other wound No No -Current Size (cm) - Length 0.1 1 -Current Size (cm) - Width 0.1 1.1 -Current Size (cm) - Depth 0.1 0.1 -Total Square Cm 0.01 1.1 -Photo Taken Yes Yes -Tunneling No No -Undermining/Tunneling No No -Circular Undermining No No -Exudate Amt Small Medium -Exudate Type Serosanguineous Serosanguineous -Wound Margin Distinct, Fibrotic Scar, Outline Thickened Scar Attached -Granulation Amt Medium (34-66%) Medium (34-66%) -Granulation Quality [place] -Slough/Fibrin Yes Yes -Necrosis Amt Medium (34-66%) Medium (34-66%) -Necrotic Tissue Type Adherent Slough Adherent Slough -Structure Exposed N/A N/A -Texture (Hannah-wound Skin Appearance) Callus Assessed -Moisture (Hannah-wound Skin Appearance) Assessed Assessed -Color (Hannah-wound Skin Appearance) Assessed Assessed, Erythema -Temperature (Hannah-wound Skin No Abnormality No Abnormality Appearance) (Pt Warm) (Pt Warm) -Tenderness on Palpation (Hannah-wound No No Skin Appearance) -Ulcer Cleansing Wound Cleanser Wound Cleanser -Foul Odor after Cleansing No No -Anesthetic Used 5% Lidocaine 5% Lidocaine Gel Gel WC - Nurse 2 - General Ulcer CM Notes Start: 12/12/24 14:34 Freq: Status: Active Protocol: Activity Type Activity Date Activity User E-sign Co-sign Detail Recorded Client Recorded Date Recorded By Document 12/12/24 14:47 [id number] 12/12/24 14:48 Document 12/26/24 11:27 [id number] 12/26/24 11:30 12/12/24 12/26/24 14:47 11:27 Wound Center Nurse 2 #4- L MED HEEL -Time 14:48 11:29 -Correct Patient Yes Yes -Correct Side, Site, Position Yes Yes -Correct Procedure Yes Yes -Procedure Performed Yes Yes -Type of Procedure Debridement Debridement -Clinical Debridement Subcutaneous Subcutaneous -Tissue Removed Subcutaneous Subcutaneous -Post Debridement (cm) - Length 1 0.2 -Post Debridement (cm) - Width 1 0.2 -Post Debridement (cm) - Depth 0.1 0.1 -Total Square (Post) (cm) 1 0.04 -Area of Debridement (cm) - Length 1 0.2 -Area of Debridement (cm) - Width 1 0.2 -Total Square (Area) (cm) 1 0.04 -Tunneling No No -Undermining/Tunneling No No -Circular Undermining No No -Wound/Ulcer Outcome Not Healed Not Healed -Ulcer Cleansing Rinsed/ Rinsed/ Irrigated with Irrigated with Saline Saline -Foul Odor after Cleansing No No -Bioengineered Tissue No No -Bleeding Controlled with Pressure Pressure -Treatment Response Procedure Procedure Tolerated Well Tolerated Well -Offloading No No -Debridement - Subq, 1st 20sq cm Yes Yes Pain Scale: 0-10 Numeric Is Patient Pain Free? Yes Yes WC - Nurse 3 - General Ulcer D/C NN Start: 12/12/24 14:34 Freq: Status: Active Protocol: Activity Type Activity Date Activity User E-sign Co-sign Detail Recorded Client Recorded Date Recorded By Document 12/12/24 15:19 [id number] 12/12/24 15:20 Document 12/26/24 11:44 [id number] 12/26/24 11:45 12/12/24 12/26/24 15:19 11:44 Wound Care Center Nurse 3 #4- L MED HEEL -Ulcer Cleansing Not Cleansed Not Cleansed -Foul Odor after Cleansing No No -Primary Dressing Applied Promogran Promogran Catherine Matter Catherine Matter -Primary Dressing Covered/Secured with Dry Gauze & Dry Gauze & Roll Gauze, Roll Gauze, Secured with Secured with Tape Tape -Promogran Catherine Matter 1 1 LLE -Lotion applied to leg before No No compression wrap -Compression Wrap Kd Wrap Kd Wrap Pain Scale: 0-10 Numeric Is Patient Pain Free? Yes Yes WC - Visit Discharge Discharge Condition Stable Stable Ambulatory Status Wheelchair Wheelchair Transportation Private Auto Private Auto Assessment/Plan Assessment/Plan (1) Non-pressure chronic ulcer of left heel and midfoot with fat layer exposed: CODE(S): L97.422 - Non-pressure chronic ulcer of left heel and midfoot with fat layer exposed PLAN: Patient was examined and evaluated. All findings were discussed with the patient. All questions were answered to the patient's satisfaction. Excisional debridement down to including subcutaneous tissue of the full- thickness wound to the left medial heel with a number 5 mm dermal curette down without incident. Predebridement measurement was eschar. Postdebridement measurement is 0.2 x 0.2 x 0.1 cm. The left foot was wiped clean and patted dry. Moist Catherine was applied to the area followed by dry sterile dressing and Kd wrap. Patient will continue every other day dressing changes. Educated the patient and his about strict blood sugar control. Will continue to offload and weight-bear as tolerated. Follow-up at the wound care center with Dr. Spann in 2 week.
== END 2025-01-04 23:59 | disposition home or self-care (01) ==
LOC: WC 10:45
PROVIDERS: PCP Internal Medicine; Referring Provider Podiatrist Foot & Ankle Surgery; Visit Provider Podiatrist Foot & Ankle Surgery
DX: E11.621 Type 2 diabetes mellitus with foot ulcer (principal); L97.422 Non-pressure chronic ulcer of left heel and midfoot with fat layer exposed; H54.8 Legal blindness, as defined in USA; M79.89 Other specified soft tissue disorders
CPT/HCPCS: 11042

== ENCOUNTER 2025-01-09 13:29 | Outpatient (RCR) | payer MEDICARE, OTHER, SELFPAY ==
[2025-01-09 13:45] VITALS: BP 167/86; PULSE 69; RESP 17; TEMP 36.3
--- NOTE | 2025-01-09 15:08 | PCM.WC.PN ---
History of Present Illness Date of Service: 01/11/25 Chief Complaint: Left heel ulceration History of Wound: This is a 78-year-old male with an ulceration on the medial aspect of his left heel. The patient has been under the care of Dr. Olaf Spann, for whom a courtesy visit is provided in his absence. The patient suffers from multiple pre-existing medical problems, including diabetes mellitus, type II. The patient's other pre-existing medical conditions are listed herein. The patient is not a smoker. 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 He is not active. He claims to sit throughout the day quite a bit. He notes chronic swelling in his lower extremities. He sleeps on a flat surface at night. He possesses CircAid Velcro compression garments, but has not been using these on a regular basis. He also has pneumatic mechanical compression pumps, which have been used sparingly. The patient is on chronic systemic anticoagulation. Progress of Wound: Healed full-thickness wound to the left medial heel. Subjective Subjective Patient is a 79-year-old diabetic male presenting to wound care center follow-up evaluation of full-thickness wound to left heel. Patient has been compliant with dressing changes. He admits that his wound is now healed. He is wearing compression. He is blood sugars well-controlled. Denies trauma. Denies constitutional symptoms. No other pedal complaints at this time. Objective Data Objective Data Vital Signs: Vital Signs Temp Pulse Resp BP O2 Del Method 97.3 F L 69 17 167/86 H Room Air 01/09/25 13:45 01/09/25 13:45 01/09/25 13:45 01/09/25 13:45 01/09/25 13:45 Oxygen Delivery Method Room Air Physical Exam Narrative Vascular: DP and PT pulses are faintly palpable. CFT is brisk. Nonpitting edema appreciated to bilateral lower extremity. Skin temperature gradient warm to warm from proximal ankles to distal digit bilateral. Evidence of hemosiderin deposits bilateral. No erythema. Neurological: Light touch intact. Protective station is diminished. Dermatological: Full-thickness wound to left medial heel is now healed. No erythema drainage or concern for infection. Musculoskeletal: Muscle strength is 5 out of 5 in all quadrants bilateral. No pain to palpation to the heel full-thickness wound. No pain with calf pressure. 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 ) Arrival Mode Wheelchair Patient Identification Verified (Name & Yes ) Patient Requires Transmission-Based No Precautions Safety Precautions Fall Prevention Vital Signs Temperature (97.8 F-99.1 F) 97.3 F L Temperature Source Temporal Pulse Rate (60-100) 69 Pulse Location Monitor Respiratory Rate (12-18) 17 Respiratory rate source Observation Oxygen Delivery Method Room Air Blood Pressure (90/60-120/80) 167/86 H Blood Pressure Mean (mm Hg) 113 Source Monitor Position Sitting Blood Pressure Location Right Arm History Since Last Visit- (Skip if this is Patient's initial visit) Have you changed medications since your No last visit? Any new allergies or adverse reactions No Signs or symptoms of abuse and/or No neglect since last visit Have you been in the hospital since your No last visit? Has dressing in place as prescribed Yes Has compression in place as prescribed N/A Has offloadiing in place as prescribed N/A Experienced any changes in pain level or No management Left Footwear Regular Shoe Right Footwear Regular Shoe Pain Scale: 0-10 Numeric Is Patient Pain Free? Yes [place] - Nurse 1 - General Ulcer Measurement Start: 01/09/25 13:44 Freq: Status: Active Protocol: Activity Type Activity Date Activity User E-sign Co-sign Detail Recorded Client Recorded Date Recorded By Document 01/09/25 13:45 TS [id number] 01/09/25 13:51 TS 01/09/25 13:45 Wound Center Nurse 1 #4- L MED HEEL -Current Size (cm) - Length 0.1 -Current Size (cm) - Width 0.1 -Current Size (cm) - Depth 0.1 -Total Square Cm 0.01 -Date of Last Picture (Recall this 01/09/25 field) -Tunneling No -Exudate Amt None Present -Granulation Amt Medium (34-66%) -Granulation Quality [place],Red -Slough/Fibrin No -Structure Exposed None/Limited to Skin Breakdown -Texture (Hannah-wound Skin Appearance) Assessed -Moisture (Hannah-wound Skin Appearance) Assessed -Color (Hannah-wound Skin Appearance) Assessed -Temperature (Hannah-wound Skin No Abnormality Appearance) (Pt Warm) -Ulcer Cleansing Soap and Water -Foul Odor after Cleansing No -Anesthetic Used 5% Lidocaine Gel WC - Nurse 2 - General Ulcer CM Notes Start: 01/09/25 13:44 Freq: Status: Active Protocol: Activity Type Activity Date Activity User E-sign Co-sign Detail Recorded Client Recorded Date Recorded By Document 01/09/25 13:55 [id number] 01/09/25 13:57 01/09/25 13:55 Wound Center Nurse 2 -Correct Patient Yes -Correct Side, Site, Position No -Correct Procedure No -Procedure Performed No -Post Debridement (cm) - Length 0 -Post Debridement (cm) - Width 0 -Post Debridement (cm) - Depth 0 -Total Square (Post) (cm) 0 -Area of Debridement (cm) - Length 0 -Area of Debridement (cm) - Width 0 -Total Square (Area) (cm) 0 -Wound/Ulcer Outcome Healed- Epithelialized Pain Scale: 0-10 Numeric Is Patient Pain Free? Yes - Nurse 3 - General Ulcer D/C NN Start: 01/09/25 13:44 Freq: Status: Active Protocol: Activity Type Activity Date Activity User E-sign Co-sign Detail Recorded Client Recorded Date Recorded By Document 01/09/25 14:10 [id number] 01/09/25 14:11 01/09/25 14:10 Wound Care Center Nurse 3 LLE -Lotion applied to leg before Yes compression wrap -Multi-Layered Wrap Application Multi-Layer Comp - Left ($) -Multi-Layer Compression Left (Qty 1 applied) Pain Scale: 0-10 Numeric Is Patient Pain Free? Yes WC - Visit Discharge Discharge Condition Stable Ambulatory Status Wheelchair Transportation Private Auto Accompanied by Medication Reconcilliation completed & No provided to patient/care provider Clinical Summary of Care Provided Yes Assessment/Plan Assessment/Plan (1) Non-pressure chronic ulcer of left heel and midfoot with fat layer exposed: CODE(S): L97.422 - Non-pressure chronic ulcer of left heel and midfoot with fat layer exposed PLAN: Patient was examined and evaluated. All findings were discussed with the patient. All questions were answered to the patient satisfaction. After exam the patient's full-thickness wound to the medial left heel is now healed. Patient will be placed in a 3M multilayer compression wrap to remove it in the next 2 days and apply personal multilayer compression bandage. Patient was educated to continue to elevate his feet whenever he is resting uses mechanical pumps which he is understanding of. Patient will continue strict blood sugar control. Patient will be discharged from the wound care center today. He left the office pleased with his visit.
--- NOTE | 2025-01-11 09:17 | WC ---
PHOTO-LEFT HEEL 01/09/25
== END 2025-02-03 23:59 | disposition home or self-care (01) ==
LOC: WC 13:29
PROVIDERS: PCP Internal Medicine; Referring Provider Podiatrist Foot & Ankle Surgery; Visit Provider Podiatrist Foot & Ankle Surgery
DX: Z09 Encounter for follow-up examination after completed treatment for conditions other than malignant neoplasm (principal); E11.9 Type 2 diabetes mellitus without complications; H54.8 Legal blindness, as defined in USA; M79.89 Other specified soft tissue disorders
CPT/HCPCS: 29581; 99213; G0463

== ENCOUNTER → 2025-01-18 | Outpatient (CLI) | payer MEDICARE, OTHER, SELFPAY ==
[2025-01-18 11:35] LABS: Mucous, Urine 0 SEEN /hpf (<or=2+); Red Blood Cells-Urine 0 SEEN /hpf (0-5)
[2025-01-18 12:43] LABS: Color, Urine Yellow (Yellow); Glucose, Dipstick Normal (Normal); Ketone-Dipstick Negative (Negative); Leukocyte Esterase-Dipstick Negative /ul (Negative); Nitrite-Dipstick Negative (Negative); Occult Blood-Urine 10 /ul (Negative); Protein-Dipstick 30 mg/dl (Negative); Specific Gravity, Urine 1.010 (1.002-1.030); Urine Bilirubin Dipstick Negative (Negative)
[2025-01-18 12:50] LABS: Hematocrit 32.8 % (40-54); Hemoglobin 10.3 g/dL (13.0-16.5); Immature Granulocytes Count 0.050 X10^3/uL (0.0-0.0); Mean Corp Hgb Conc 31.4 g/dL (32-36); Mean Corpuscular Volume 88.6 fL (80-94); Mean Platelet Vol. 11.1 fl (6.2-12.0); NRBC Flagged by Analyzer 0 % (0-5); Platelet Count 237 K/mm3 (150-450); RBC Distribution Width CV 14.0 % (11.6-14.6); RBC Distribution Width SD 44.9 fl (35.1-43.9); Red Blood Count 3.70 M/mm3 (4.6-6.2); White Blood Count 11.2 K/mm3 (4.4-11.0)
[2025-01-18 12:52] LABS: Squamous Epithelial Cells - UA 5-10 SEEN /hpf (0-5)
[2025-01-18 13:02] LABS: Creatinine, Urine (random) 75.80 mg/dL (39.00-259.00); Microalbumin,Random Urine 118.0 mg/L (<20 mg/L)
[2025-01-18 13:24] LABS: AST(SGOT) 18 U/L (<=37); Alanine Aminotransfer ALT/SGPT 10 U/L (<=46); Albumin, Serum 3.4 g/dL (3.4-4.8); Alkaline Phosphatase 106 U/L (40-129); Anion Gap 8 (5-15); BUN 23 mg/dL (4-19); BUN/Creat Ratio 17.5 RATIO (10-20); Calcium,Total 9.6 mg/dL (7.6-11.0); Carbon Dioxide 29.1 mmol/L (21.0-32.0); Chloride 103 mmol/L (98-108); Cholesterol 97 mg/dL (<=200); Globulin 2.8 g/dL (2.2-4.2); Glucose 163 mg/dL (70-99); Low Density Lipoprotein Calc. 35 mg/dL; Potassium 4.7 mmol/L (3.3-5.1); Triglycerides 79 mg/dL; Very Low Density Lipoprotein 16 mg/dL (5-40); cholesterol:hdl ratio screen 2.12
== END | disposition home or self-care (01) ==
LOC: LAB 11:23
PROVIDERS: PCP Internal Medicine; Referring Provider Internal Medicine; Visit Provider Internal Medicine
DX: E11.40 Type 2 diabetes mellitus with diabetic neuropathy, unspecified (principal); E03.9 Hypothyroidism, unspecified
CPT/HCPCS: 36415; 80053; 80061; 81001; 82043; 82570; 84443; 85025